=== PATIENT | male | born 1975 | race Hispanic/Latino ===

== ENCOUNTER 2019-05-18 05:12 | Emergency (ER) | payer OTHER ==
--- OUTSIDE RECORDS SUMMARY | 2019-05-18 05:14 | XMS REPORT | Summary of Care ---
:1975 Author Organization [facility] Address [address] [place] [id number] Care Team Providers Name Role Phone Pcp, Patient Does Not Have A Primary Care Provider Reason for Visit Reason Comments Intake Referral Liver Txpl Eval Encounter Details Date Type Department Care Team Description 11/21/[address] [facility] Transplant- Gladis Couch, Intake Referral Naman Rich MD (Liver Txpl Eval ) Multispec[place]ty [address] [id number] [phone] Allergies No Known Allergiesdocumented as of this encounter (statuses as of 11/21/2018) Medications No known medicationsdocumented as of this encounter (statuses as of 11/21/2018) Active Problems Problem Noted Date E44.0 Moderate protein calorie malnutrition 11/19/2018 Obesity (BMI 30-39.9) 11/16/2018 Jaundice 11/15/2018 documented as of this encounter (statuses as of 11/21/2018) Immunizations Name Administration Dates Next Due Influenza Virus Vaccine 01/22/2018 documented as of this encounter Social History Tobacco Use Types Packs/Day Years Used Date Never Smoker Smokeless Tobacco: Never Used Alcohol Use Drinks/Week oz/Week Comments Yes 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 Alcohol Habits Answer Date Recorded How often do you have a drink containing alcohol? Never 11/15/2018 How many drinks containing alcohol do you have on a typical 10 or more 2018 day when you are drinking? How often do you have six or more drinks on one occasion? Never 11/15/2018 Sex Assigned at Date Recorded Not on file Job Start Date Occupation Industry Not on file Not on file Not on file Travel History Travel Start Travel End No recent travel history available. documented as of this encounter Last Filed Vital Signs Not on filedocumented in this encounter Plan of Treatment Health Maintenance Due Date Last Done Comments PNEUMOCOCCAL 0-64 YEARS COMBINED SERIES (1 of - 1981 PPSV23) DTaP,Tdap,and Td Vaccines (1 - Tdap) 1994 INFLUENZA VACCINE 12/23/2018 01/22/2018 documented as of this encounter Results Not on filedocumented in this encounter Insurance Payer Benefit Plan / Subscriber ID Effective Dates Phone Address Type Group [facility] [id number] 2018-Present PPO documented as of this encounter
--- OUTSIDE RECORDS SUMMARY | 2019-05-18 05:14 | XMS REPORT | Summary of Care ---
:1975 Author Organization [facility] Address [address] [place] [id number] Care Team Providers Name Role Phone Pcp, Patient Does Not Have A Primary Care Provider Reason for Visit Reason Comments Intake Referral Liver Txpl Eval Encounter Details Date Type Department Care Team Description 11/21/2018 Telephone [facility] Transplant- Gladis Couch, Intake Referral Naman Rich MD (Liver Txpl Eval ) [place]is[place]ty [address] [phone] Allergies No Known Allergiesdocumented as of this [...] ID Effective Dates Phone Address Type Group [facility] [employer] [id number] 2018-Present PPO documented as of this encounter
--- OUTSIDE RECORDS SUMMARY | 2019-05-18 05:18 | XMS REPORT | Summary of Care ---
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 Glomerular Filtration Rate (GFR) and Staging [facility] of Kidney Disease* + + + + | GFR (mL/min/1.73 m2)| With Kidney Damage|Without Kidney Damage + + + + |>90|Stage one| Normal + + + + |60-89|Stage two| Decreased GFR + + + + |30-59|Stage three| Stage three + + + + |15-29|Stage four | Stage four + + + + |<15 (or dialysis)|Stage five | Stage five + + + + *Each stage assumes the associated GFR level has been in effect for at least three months.Stages 1 to 5, with or without kidney disease, indicate chronic kidney disease. Notes: Determination of stages one and two (with eGFR >59mL/min/1.73 m2) requires estimation of kidney damage for at least three months as defined by structural or functional abnormalities of the kidney, manifested by either: Pathological abnormalities or Markers of kidney damage (including abnormalities in the composition of the blood or urine or abnormalities in imaging tests). Performing Organization Address City/[facility]/Zipcode Phone Number [facility] CLIA: [id number], [address] [place] [address] [id number] [phone] [facility] HEPATIC FUNCTION PANEL ([id number]) (ALB,T.PRO,BILI T,BU/BC,ALT,AST,ALK PHOS) (2018 12:55 AM CDT) TOTAL BILI 6.3 (H) 0.1 - 1.1 mg/dL [facility] BILI UNCON 1.6 (H) 0.1 - 1.1 mg/dL [facility] BILI CONJ 0.9 (H) 0.0 - 0.3 mg/dL [facility] T PROTEIN 7.5 6.3 - 8.2 g/dL [facility] ALBUMIN 2.3 (L) 3.5 - 5.0 g/dL [facility] ALK PHOS 294 (H) 34 - 122 U/L [facility] ALT(SGPT) 27 9 - 51 U/L [facility] AST(SGOT) 66 (H) 13 - 40 U/L [facility] Specimen Blood - ARM, LEFT Performing Organization Address [facility] Phone Number [facility] CLIA: [id number], [address] [place] [address] [phone] [facility] PROTHROMBIN TIME / INR (11/21/2018 12:55 AM CDT) PROTIME PATIENT 29.4 (H) 10.1 - 12.6 [facility] Seconds SERVICES INR 2.6Comment: Normal [facility] INR <1.1; Warfarin SERVICES Therapeutic range 2.0 to 3.0 or 2.5 to 3.5, depending upon the indications. Specimen Blood - ARM, LEFT Performing Organization Address [facility] Phone Number [facility] CLIA: [id number], [address] [place] [address] [phone] [facility] NM BONE WHOLE BODY (11/20/2018 3:02 PM CDT) Specimen Impressions Performed At PACS/VR/DOSE No evidence of osteoblastic metastasis. Nikos Larose MD., have reviewed this study and agree with the above report. Narrative Performed At * * * * * * * * ORIGINAL REPORT * * * * * * * * PACS/VR/DOSE EXAM DESCRIPTION: Whole Body Bone Scan INDICATION: Suspect mets form HCC COMPARISON: None. Correlation with chest CT 11/19/2018, MR abdomen 11/17/2018, abdominal CT 11/15/2018 RADIOPHARMACEUTICAL: 25 mCi technetium 99m MDP administered intravenously in the left arm. TECHNIQUE: Anterior and posterior whole body images were acquired 3 hours after radiopharmaceutical administration. Spot images of the chest and pelvis were acquired in anterior and posterior projections. FINDINGS: No suspicious abnormal radiotracer uptake is identified.Scattered areas of uptake in the bilateral shoulder joints, thoracolumbar and sacroiliac spine likely represent degenerative changes. Focal areas of uptake in adjacent lower anterior ribs are likely related to prior trauma. Normal physiologic uptake is seen in the soft tissues, kidneys, and urinary bladder. Procedure Note [facility], Radiant Results Inft User - 11/20/2018 5:17 PM CDT * * * * * * * * ORIGINAL REPORT * * * * * * * * EXAM DESCRIPTION: Whole Body Bone Scan INDICATION: Suspect mets form HCC COMPARISON: None. Correlation with chest CT 11/19/2018, MR abdomen 11/17/2018, abdominal CT 11/15/2018 RADIOPHARMACEUTICAL: 25 mCi technetium 99m MDP administered intravenously in the left arm. TECHNIQUE: Anterior and posterior whole body images were acquired 3 hours after radiopharmaceutical administration. Spot images of the chest and pelvis were acquired in anterior and posterior projections. FINDINGS: No suspicious abnormal radiotracer uptake is identified. Scattered areas of uptake in the bilateral shoulder joints, thoracolumbar and sacroiliac spine likely represent degenerative changes. Focal areas of uptake in adjacent lower anterior ribs are likely related to prior trauma. Normal physiologic uptake is seen in the soft tissues, kidneys, and urinary bladder. IMPRESSION No evidence of osteoblastic metastasis. Frantz Larose MD., have reviewed this study and agree with the above report. Performing Organization Address City/State/Zipcode Phone Number [facility]/VR/DOSE MAGNESIUM (11/20/2018 12:17 AM CDT) MAGNESIUM 1.5 (L) 1.7 - 2.4 mg/dL [facility] Specimen Blood - ARM, LEFT Performing Organization Address City/[facility]/Zipcode Phone Number [facility] CLIA: [id number], [address] [place] [address] [phone] [facility] PHOSPHORUS (11/20/2018 12:17 AM CDT) PHOSPHORUS 3.7 2.5 - 5.0 mg/dL [facility] Specimen Blood - ARM, LEFT Performing Organization Address [facility] Phone Number [facility] CLIA: [id number], [address] [place] [phone] [facility] PROFILE / HEMOGRAM (11/20/2018 12:17 AM CDT) WBC 10.85 (H) 4.20 - 10.70 [facility] 10*3/L SERVICES RBC 2.01 (L) 4.26 - 5.52 [facility] 10*6/L SERVICES HGB 7.6 (L) 12.2 - 16.4 [facility] g/dL SERVICES HCT 22.7 (L) 38.4 - 49.3 % [facility] MCH 37.8 (H) 26.1 - 32.7 pg [facility] MCV 112.9 (H) 81.7 - 95.6 fL [facility] MCHC 33.5 31.2 - 35.0 [facility] g/dL SERVICES PLT 62 (L) 150 - 328 [facility] 10*3/L SERVICES MPV 11.8 9.8 - 13.0 fL [facility] RDW-CV 16.2 (H) 12.1 - 15.4 % [facility] RDW-SD 67.0 (H) 38.5 - 51.6 fL [facility] NRBC x10^3 <0.01 10*3/L [facility] NRBC/100 WBC 0.0 0.0 - 10.0 [facility] /100 WBCs SERVICES IPF % 5.7Comment: Platelet 1.2 - 10.7 % [facility] count measured by SERVICES fluorescence method. Specimen Blood - ARM, LEFT Performing Organization Address City/State/Zipcode Phone Number [facility] CLIA: [id number], [address] [place] [address] [phone] [facility] BASIC METABOLIC PANEL (NA, K, CL, CO2, GLUCOSE, BUN, CREATININE, CA) (2018 12:17 AM CDT) NA 137 135 - 145 [facility] mmol/L SERVICES K 4.0 3.5 - 5.0 [facility] mmol/L SERVICES CL 112 (H) 98 - 108 mmol/L [facility] CO2 TOTAL 21 (L) 23 - 31 mmol/L [facility] AGAP 4 2 - 16 [facility] BUN 10 7 - 23 mg/dL [facility] GLUCOSE 133 (H) 70 - 110 mg/dL [facility] CREATININE 0.74 0.60 - 1.25 [facility] mg/dL SERVICES CALCIUM 7.6 (L) 8.6 - 10.6 [facility] mg/dL SERVICES eGFR Calculation 115.4 mL/min/1.73m2 [facility] (Non- SERVICES [place]anese) eGFR Calculation 139.9 mL/min/1.73m2 [facility] () SERVICES Specimen Blood - ARM, LEFT Narrative Performed At Association of Glomerular Filtration Rate (GFR) and Staging [facility] of Kidney Disease* + + + + | GFR (mL/min/1.73 m2)| With Kidney Damage|Without Kidney Damage + + + + |>90|Stage one| Normal + + + + |60-89|Stage two| Decreased GFR + + + + |30-59|Stage three| Stage three + + + + |15-29|Stage four | Stage four + + + + |<15 (or dialysis)|Stage five | Stage five + + + + *Each stage assumes the associated GFR level has been in effect for at least three months.Stages 1 to 5, with or without kidney disease, indicate chronic kidney disease. Notes: Determination of stages one and two (with eGFR >59mL/min/1.73 m2) requires estimation of kidney damage for at least three months as defined by structural or functional abnormalities of the kidney, manifested by either: Pathological abnormalities or Markers of kidney damage (including abnormalities in the composition of the blood or urine or abnormalities in imaging tests). Performing Organization Address City/State/Zipcode Phone Number [facility] CLIA: [id number], [address] [place] [phone] [facility] HEPATIC FUNCTION PANEL ([id number]) (ALB,T.PRO,BILI T,BU/BC,ALT,AST,ALK PHOS) (2018 12:17 AM CDT) TOTAL BILI 6.5 (H) 0.1 - 1.1 mg/dL [facility] BILI UNCON 1.7 (H) 0.1 - 1.1 mg/dL [facility] BILI CONJ 0.9 (H) 0.0 - 0.3 mg/dL [facility] T PROTEIN 7.5 6.3 - 8.2 g/dL [facility] ALBUMIN 2.3 (L) 3.5 - 5.0 g/dL [facility] ALK PHOS 263 (H) 34 - 122 U/L [facility] ALT(SGPT) 29 9 - 51 U/L [facility] AST(SGOT) 64 (H) 13 - 40 U/L [facility] Specimen Blood - ARM, LEFT Performing Organization Address [facility]/Zipcode Phone Number [facility] CLIA: [id number], [address] [place] [phone] [facility] PROTHROMBIN TIME / INR (11/20/2018 12:17 AM CDT) Pathologist [facility] PROTIME PATIENT 29.8 (H) 10.1 - 12.6 [facility] Seconds SERVICES INR 2.7Comment: Normal [facility] INR <1.1; Warfarin SERVICES Therapeutic range 2.0 to 3.0 or 2.5 to 3.5, depending upon the indications. Specimen Blood - ARM, LEFT Performing Organization Address [facility] Phone Number [facility] CLIA: [id number], [address] [place] [phone] [facility] CT THORAX W CONTRAST (11/19/2018 2:22 PM CDT) Specimen Impressions Performed At PACS/VR/DOSE 1.No definite evidence of intrathoracic metastatic disease. 2.Small left pleural effusion with adjacent compressive atelectasis. 3.Mild left atrial dilation. 4.Right hepatic lobe hypodense lesion measuring 3.2 cm. This finding is better evaluated on the recent MRI abdomen from 11/17/2018. 5.Cirrhotic liver morphology with evidence of portal hypertension in the form of small volume ascites and splenomegaly. Narrative Performed At PROCEDURE: CT CHEST WITH CONTRAST - CHEST PROTOCOL PACS/VR/DOSE CLINICAL INDICATION: Suspect Mets COMPARISON: CT abdomen/pelvis 11/15/2018. TECHNIQUE:Helical CT was performed of the chest (lung apices to bases) using 100 mL Omnipaque nonionic intravenous contrast, without complication. Images were reconstructed at 1.25 mm slice thickness. MIP and coronal & sagittal MPR images were generated and reviewed. (DFOV=43 cm) FINDINGS: Lower neck/thyroid: Unremarkable. Lungs: Compressive atelectasis is seen in the left lower lobe adjacent to the effusion. Mild subsegmental atelectasis is also seen in the lingula. No suspicious pulmonary nodules are seen. Central airway: The central airways are patent. Pleura: A small left pleural effusion is seen. No pneumothorax is identified. Thoracic aorta and great vessels:Normal in diameter. Pulmonary arteries: Unremarkable. Heart and pericardium: No detectable coronary arterial calcification. Left atrial dilation is noted. No significant pericardial effusion is seen. Lymph nodes: No enlarged thoracic lymph nodes. Subcentimeter right hemidiaphragmatic lymph nodes measure up to 6 mm (301:158). Mediastinum: Unremarkable. Thoracic spine and chest wall: No aggressive osseous lesion is seen. Prominent anterior bridging osteophytes are seen along the thoracolumbar spine. Other Lines/Tubes/Devices/Hardware: None Visualized upper abdomen: Cirrhotic morphology of the liver is seen with a hypoattenuating lesion in the right hepatic lobe measuring up to 3.2 cm, better evaluated on the recent MRI abdomen from 11/17/2018. Small volume ascites is noted. Mild gallbladder wall thickening is seen. Mild splenomegaly measuring up to 13.3 cm. Prominent venancio hepatic and gastrohepatic lymph nodes are unchanged. Procedure Note [facility], Radiant Results Inft User - 11/19/2018 3:02 PM CDT PROCEDURE: CT CHEST WITH CONTRAST - CHEST PROTOCOL CLINICAL INDICATION: Suspect Mets COMPARISON: CT abdomen/pelvis 11/15/2018. TECHNIQUE: Helical CT was performed of the chest (lung apices to bases) using 100 mL Omnipaque nonionic intravenous contrast, without complication. Images were reconstructed at 1.25 mm slice thickness. MIP and coronal & sagittal MPR images were generated and reviewed. (DFOV=43 cm) FINDINGS: Lower neck/thyroid: Unremarkable. Lungs: Compressive atelectasis is seen in the left lower lobe adjacent to the effusion. Mild subsegmental atelectasis is also seen in the lingula. No suspicious pulmonary nodules are seen. Central airway: The central airways are patent. Pleura: A small left pleural effusion is seen. No pneumothorax is identified. Thoracic aorta and great vessels: Normal in diameter. Pulmonary arteries: Unremarkable. Heart and pericardium: No detectable coronary arterial calcification. Left atrial dilation is noted. No significant pericardial effusion is seen. Lymph nodes: No enlarged thoracic lymph nodes. Subcentimeter right hemidiaphragmatic lymph nodes measure up to 6 mm (301:158). Mediastinum: Unremarkable. Thoracic spine and chest wall: No aggressive osseous lesion is seen. Prominent anterior bridging osteophytes are seen along the thoracolumbar spine. Other Lines/Tubes/Devices/Hardware: None Visualized upper abdomen: Cirrhotic morphology of the liver is seen with a hypoattenuating lesion in the right hepatic lobe measuring up to 3.2 cm, better evaluated on the recent MRI abdomen from 11/17/2018. Small volume ascites is noted. Mild gallbladder wall thickening is seen. Mild splenomegaly measuring up to 13.3 cm. Prominent venancio hepatic and gastrohepatic lymph nodes are unchanged. IMPRESSION 1. No definite evidence of intrathoracic metastatic disease. 2. Small left pleural effusion with adjacent compressive atelectasis. 3. Mild left atrial dilation. 4. Right hepatic lobe hypodense lesion measuring 3.2 cm. This finding is better evaluated on the recent MRI abdomen from 11/17/2018. 5. Cirrhotic liver morphology with evidence of portal hypertension in the form of small volume ascites and splenomegaly. Performing Organization Address City/State/Zipcode Phone Number PACS/VR/DOSE MAGNESIUM (11/19/2018 5:31 AM CDT) MAGNESIUM 1.7 1.7 - 2.4 mg/dL [facility] Specimen Blood - ARM, LEFT Performing Organization Address [facility]/Zipcode Phone Number [facility] CLIA: [id number], [address] [place] [phone] [facility] PHOSPHORUS (11/19/2018 5:31 AM CDT) PHOSPHORUS 4.2 2.5 - 5.0 mg/dL [facility] Specimen Blood - ARM, LEFT Performing Organization Address [facility]/Zipcode Phone Number [facility] CLIA: [id number], [address] [place] [address] [phone] [facility] PROFILE / HEMOGRAM (11/19/2018 5:31 AM CDT) WBC 8.11 4.20 - 10.70 [facility] 10*3/L SERVICES RBC 1.98 (L) 4.26 - 5.52 [facility] 10*6/L SERVICES HGB 7.5 (L) 12.2 - 16.4 [facility] g/dL SERVICES HCT 22.6 (L) 38.4 - 49.3 % [facility] MCH 37.9 (H) 26.1 - 32.7 pg [facility] MCV 114.1 (H) 81.7 - 95.6 fL [facility] MCHC 33.2 31.2 - 35.0 [facility] g/dL SERVICES PLT 57 (L) 150 - 328 [facility] 10*3/L SERVICES MPV 12.0 9.8 - 13.0 fL [facility] RDW-CV 16.6 (H) 12.1 - 15.4 % [facility] RDW-SD 69.5 (H) 38.5 - 51.6 fL [facility] NRBC x10^3 0.02 10*3/L [facility] NRBC/100 WBC 0.2 0.0 - 10.0 [facility] /100 WBCs SERVICES IPF % 6.7Comment: Platelet 1.2 - 10.7 % [facility] count measured by SERVICES fluorescence method. Specimen Blood - ARM, LEFT Performing Organization Address City/State/Zipcode Phone Number [facility] CLIA: [id number], [address] [place] [address] [facility] BASIC METABOLIC PANEL (NA, K, CL, CO2, GLUCOSE, BUN, CREATININE, CA) (2018 5:31 AM CDT) NA 137 135 - 145 [facility] mmol/L SERVICES K 3.3 (L) 3.5 - 5.0 [facility] mmol/L SERVICES CL 111 (H) 98 - 108 mmol/L [facility] CO2 TOTAL 21 (L) 23 - 31 mmol/L [facility] AGAP 5 2 - 16 [facility] BUN 10 7 - 23 mg/dL [facility] GLUCOSE 143 (H) 70 - 110 mg/dL [facility] CREATININE 0.67 0.60 - 1.25 [facility] mg/dL SERVICES CALCIUM 7.6 (L) 8.6 - 10.6 [facility] mg/dL SERVICES eGFR Calculation 129.5 mL/min/1.73m2 [facility] (Non- SERVICES [place]anese) eGFR Calculation 156.9 mL/min/1.73m2 [facility] () SERVICES Specimen Blood - ARM, LEFT Narrative Performed At [facility] Glomerular Filtration Rate (GFR) and Staging [facility] of Kidney Disease* + + + + | GFR (mL/min/1.73 m2)| With Kidney Damage|Without Kidney Damage + + + + |>90|Stage one| Normal + + + + |60-89|Stage two| Decreased GFR + + + + |30-59|Stage three| Stage three + + + + |15-29|Stage four | Stage four + + + + |<15 (or dialysis)|Stage five | Stage five + + + + *Each stage assumes the associated GFR level has been in effect for at least three months.Stages 1 to 5, with or without kidney disease, indicate chronic kidney disease. Notes: Determination of stages one and two (with eGFR >59mL/min/1.73 m2) requires estimation of kidney damage for at least three months as defined by structural or functional abnormalities of the kidney, manifested by either: Pathological abnormalities or Markers of kidney damage (including abnormalities in the composition of the blood or urine or abnormalities in imaging tests). Performing Organization Address City/[facility] Phone Number [facility] CLIA: [id number], [address] [place] [address] [phone] [facility] HEPATIC FUNCTION PANEL ([id number]) (ALB,T.PRO,BILI T,BU/BC,ALT,AST,ALK PHOS) (2018 5:31 AM CDT) TOTAL BILI 5.7 (H) 0.1 - 1.1 mg/dL [facility] BILI UNCON 1.8 (H) 0.1 - 1.1 mg/dL [facility] BILI CONJ 0.6 (H) 0.0 - 0.3 mg/dL [facility] T PROTEIN 7.0 6.3 - 8.2 g/dL [facility] ALBUMIN 2.2 (L) 3.5 - 5.0 g/dL [facility] ALK PHOS 272 (H) 34 - 122 U/L [facility] ALT(SGPT) 27 9 - 51 U/L [facility] AST(SGOT) 65 (H) 13 - 40 U/L [facility] Specimen Blood - ARM, LEFT Performing Organization Address [facility] Phone Number [facility] CLIA: [id number], [address] [place] [phone] [facility] PROTHROMBIN TIME / INR (11/19/2018 5:31 AM CDT) PROTIME PATIENT 29.3 (H) 10.1 - 12.6 [facility] Seconds SERVICES INR 2.6Comment: Normal [facility] INR <1.1; Warfarin SERVICES Therapeutic range 2.0 to 3.0 or 2.5 to 3.5, depending upon the indications. Specimen Blood - ARM, LEFT Performing Organization Address [facility] Phone Number [facility] CLIA: [id number], [address] [place] [address] [phone] [facility] MAGNESIUM (11/18/2018 3:47 AM CDT) MAGNESIUM 1.3 (L) 1.7 - 2.4 mg/dL [facility] Specimen Blood - WRIST, LEFT Performing Organization Address [facility] Phone Number [facility] CLIA: [id number], [address] [place], [place] [phone] [facility] PHOSPHORUS (11/18/2018 3:47 AM CDT) PHOSPHORUS 3.7 2.5 - 5.0 mg/dL [facility] Specimen Blood - WRIST, LEFT Performing Organization Address [facility] [facility] Phone Number [facility] CLIA: [id number], [address] [place] [address] [phone] [facility] BASIC METABOLIC PANEL (NA, K, CL, CO2, GLUCOSE, BUN, CREATININE, CA) (2018 3:47 AM CDT) NA 138 135 - 145 [facility] mmol/L SERVICES K 3.7 3.5 - 5.0 [facility] mmol/L SERVICES CL 112 (H) 98 - 108 mmol/L [facility] CO2 TOTAL 20 (L) 23 - 31 mmol/L [facility] AGAP 6 2 - 16 [facility] BUN 9 7 - 23 mg/dL [facility] GLUCOSE 131 (H) 70 - 110 mg/dL [facility] CREATININE 0.73 0.60 - 1.25 [facility] mg/dL SERVICES CALCIUM 7.5 (L) 8.6 - 10.6 [facility] mg/dL SERVICES eGFR Calculation 117.3 mL/min/1.73m2 [facility] (Non- SERVICES Bhutanese) eGFR Calculation 142.1 mL/min/1.73m2 [facility] () SERVICES Specimen Blood - WRIST, LEFT Narrative Performed At Association of Glomerular Filtration Rate (GFR) and Staging [facility] of Kidney Disease* + + + + | GFR (mL/min/1.73 m2)| With Kidney Damage|Without Kidney Damage + + + + |>90|Stage one| Normal + + + + |60-89|Stage two| Decreased GFR + + + + |30-59|Stage three| Stage three + + + + |15-29|Stage four | Stage four + + + + |<15 (or dialysis)|Stage five | Stage five + + + + *Each stage assumes the associated GFR level has been in effect for at least three months.Stages 1 to 5, with or without kidney disease, indicate chronic kidney disease. Notes: Determination of stages one and two (with eGFR >59mL/min/1.73 m2) requires estimation of kidney damage for at least three months as defined by structural or functional abnormalities of the kidney, manifested by either: Pathological abnormalities or Markers of kidney damage (including abnormalities in the composition of the blood or urine or abnormalities in imaging tests). Performing Organization Address [facility] Phone Number [facility] CLIA: [id number], [address] [place], [place] [address] [facility] HEPATIC FUNCTION PANEL ([id number]) (ALB,T.PRO,BILI T,BU/BC,ALT,AST,ALK PHOS) (2018 3:47 AM CDT) TOTAL BILI 6.2 (H) 0.1 - 1.1 mg/dL [facility] BILI UNCON 1.8 (H) 0.1 - 1.1 mg/dL [facility] BILI CONJ 0.8 (H) 0.0 - 0.3 mg/dL [facility] T PROTEIN 7.4 6.3 - 8.2 g/dL [facility] ALBUMIN 2.3 (L) 3.5 - 5.0 g/dL [facility] ALK PHOS 260 (H) 34 - 122 U/L [facility] ALT(SGPT) 24 9 - 51 U/L [facility] AST(SGOT) 79 (H) 13 - 40 U/L [facility] Specimen Blood - WRIST, LEFT Performing Organization Address [facility] Phone Number [facility] CLIA: [id number], [address] [place], [place] [id number] [facility] PROTHROMBIN TIME / INR (11/18/2018 3:47 AM CDT) PROTIME PATIENT 30.3 (H) 10.1 - 12.6 [facility] Seconds SERVICES INR 2.7Comment: Normal [facility] INR <1.1; Warfarin SERVICES Therapeutic range 2.0 to 3.0 or 2.5 to 3.5, depending upon the indications. Specimen Blood - WRIST, LEFT Performing Organization Address [facility] Phone Number [facility] CLIA: [id number], [address] [place], [place] [id number] [phone] [facility] PROFILE / HEMOGRAM (11/18/2018 3:46 AM CDT) WBC 8.17 4.20 - 10.70 [facility] 10*3/L SERVICES RBC 1.94 (L) 4.26 - 5.52 [facility] 10*6/L SERVICES HGB 7.4 (L) 12.2 - 16.4 [facility] g/dL SERVICES HCT 22.0 (L) 38.4 - 49.3 % [facility] MCH 38.1 (H) 26.1 - 32.7 pg [facility] MCV 113.4 (H) 81.7 - 95.6 fL [facility] MCHC 33.6 31.2 - 35.0 [facility] g/dL SERVICES PLT 56 (L) 150 - 328 [facility] 10*3/L SERVICES MPV 12.4 9.8 - 13.0 fL [facility] RDW-CV 16.7 (H) 12.1 - 15.4 % [facility] RDW-SD 70.0 (H) 38.5 - 51.6 fL [facility] NRBC x10^3 <0.01 10*3/L [facility] NRBC/100 WBC 0.0 0.0 - 10.0 [facility] /100 WBCs SERVICES IPF % 6.1Comment: Platelet 1.2 - 10.7 % [facility] count measured by SERVICES fluorescence method. Specimen Blood - WRIST, LEFT Performing Organization Address City/State/Zipcode Phone Number [facility] CLIA: [id number], [address] [place] [address] [phone] [facility] MR ABDOMEN W WO CONTRAST (11/17/2018 12:04 PM CDT) Specimen Impressions Performed At PACS/VR/DOSE A 3.1 cm lesion in segment 8/4A contains microscopic fat but does not show arterial enhancement. This remains concerning for HCC, LI RADS 4. Biopsy could be considered for further evaluation. No biliary dilatation. Cirrhotic liver morphology with portal hypertension in the form of small volume ascites, splenomegaly, and small gastroesophageal varices. Bilateral small pleural effusions. IRandi MD., have reviewed this study and agree with the above report. Narrative Performed At EXAM: MRI ABDOMEN with and without CONTRAST PACS/VR/DOSE HISTORY: Liver lesion, <1cm, liver disease with risk of hcc Triple Phase MRI to assess LIVER MASS COMPARISON:CT dated 11/15/2018, ultrasound dated 11/16/2018 TECHNIQUE: Multiplanar, multisequence MR imaging of the abdomen was performed with and without 20 cc Dotarem. FINDINGS: LOWER THORAX: Small volume bilateral pleural effusions, more prominent on the left than right. No cardiomegaly. LIVER: Multiple mildly T1 hyperintense nodules scattered through the liver along with the nodular hepatic contour is consistent with cirrhosis with siderotic nodules. A mildly T2 hyperintense lesion measuring 3.2 cm in segment 4A/8 shows loss of signal on out of phase images suggestive of microscopic fat. No definite enhancement or restricted diffusion. No biliary ductal dilation. No arterially enhancing lesions. BILIARY TREE: Mild gallbladder wall thickening is appreciated, presumably sequelae of chronic liver disease in the absence of distention pericholecystic stranding or gallstones. No ductal dilation or filling defects. The common bile duct appears normal. SPLEEN: Mild splenomegaly measures 13.3 cm. PANCREAS: No ductal dilation or masses. ADRENAL GLANDS: No adrenal nodules. KIDNEYS: No hydronephrosis or masses. A subcentimeter nonenhancing T2 hyperintense right interpolar cyst is seen medially (series 16:70). PERITONEUM AND RETROPERITONEUM: Small volume ascites. LYMPH NODES: Mildly enlarged venancio hepatis and retroperitoneal lymph nodes are likely reactive. VESSELS: The portal and hepatic veins are patent. Small gastroesophageal varices. BONES AND SOFT TISSUES: Unremarkable. Procedure Note [facility], Radiant Results Inft User - 11/19/2018 12:59 PM CDT EXAM: MRI ABDOMEN with and without CONTRAST HISTORY: Liver lesion, <1cm, liver disease with risk of hcc Triple Phase MRI to assess LIVER MASS COMPARISON:CT dated 11/15/2018, ultrasound dated 11/16/2018 TECHNIQUE: Multiplanar, multisequence MR imaging of the abdomen was performed with and without 20 cc Dotarem. FINDINGS: LOWER THORAX: Small volume bilateral pleural effusions, more prominent on the left than right. No cardiomegaly. LIVER: Multiple mildly T1 hyperintense nodules scattered through the liver along with the nodular hepatic contour is consistent with cirrhosis with siderotic nodules. A mildly T2 hyperintense lesion measuring 3.2 cm in segment 4A/8 shows loss of signal on out of phase images suggestive of microscopic fat. No definite enhancement or restricted diffusion. No biliary ductal dilation. No arterially enhancing lesions. BILIARY TREE: Mild gallbladder wall thickening is appreciated, presumably sequelae of chronic liver disease in the absence of distention pericholecystic stranding or gallstones. No ductal dilation or filling defects. The common bile duct appears normal. SPLEEN: Mild splenomegaly measures 13.3 cm. PANCREAS: No ductal dilation or masses. ADRENAL GLANDS: No adrenal nodules. KIDNEYS: No hydronephrosis or masses. A subcentimeter nonenhancing T2 hyperintense right interpolar cyst is seen medially (series 16:70). PERITONEUM AND RETROPERITONEUM: Small volume ascites. LYMPH NODES: Mildly enlarged venancio hepatis and retroperitoneal lymph nodes are likely reactive. VESSELS: The portal and hepatic veins are patent. Small gastroesophageal varices. BONES AND SOFT TISSUES: Unremarkable. IMPRESSION A 3.1 cm lesion in segment 8/4A contains microscopic fat but does not show arterial enhancement. This remains concerning for HCC, LI RADS 4. Biopsy could be considered for further evaluation. No biliary dilatation. Cirrhotic liver morphology with portal hypertension in the form of small volume ascites, splenomegaly, and small gastroesophageal varices. Bilateral small pleural effusions. I, Randi Mcgraw MD., have reviewed this study and agree with the above report. Performing Organization Address City/State/Zipcode Phone Number PACS/VR/DOSE PROTHROMBIN TIME / INR (11/17/2018 10:03 AM CDT) PROTIME PATIENT 27.7 (H) 10.1 - 12.6 [facility] Seconds SERVICES INR 2.5Comment: Normal [facility] INR <1.1; Warfarin SERVICES Therapeutic range 2.0 to 3.0 or 2.5 to 3.5, depending upon the indications. Specimen Blood - ARM, LEFT Performing Organization Address City/State/Zipcode Phone Number [facility] CLIA: [id number], [address] [place] [address] [facility] BASIC METABOLIC PANEL (NA, K, CL, CO2, GLUCOSE, BUN, CREATININE, CA) (2018 10:02 AM CDT) NA 136 135 - 145 [facility] mmol/L SERVICES K 3.2 (L) 3.5 - 5.0 [facility] mmol/L SERVICES CL 110 (H) 98 - 108 mmol/L [facility] CO2 TOTAL 21 (L) 23 - 31 mmol/L [facility] AGAP 5 2 - 16 [facility] BUN 9 7 - 23 mg/dL [facility] GLUCOSE 159 (H) 70 - 110 mg/dL [facility] CREATININE 0.61 0.60 - 1.25 [facility] mg/dL SERVICES CALCIUM 7.8 (L) 8.6 - 10.6 [facility] mg/dL SERVICES eGFR Calculation 144.3 mL/min/1.73m2 [facility] (Non- SERVICES [place]utanese) eGFR Calculation 174.9 mL/min/1.73m2 [facility] () SERVICES Specimen Blood - ARM, LEFT Narrative Performed At Association of Glomerular Filtration Rate (GFR) and Staging [facility] of Kidney Disease* + + + + | GFR (mL/min/1.73 m2)| With Kidney Damage|Without Kidney Damage + + + + |>90|Stage one| Normal + + + + |60-89|Stage two| Decreased GFR + + + + |30-59|Stage three| Stage three + + + + |15-29|Stage four | Stage four + + + + |<15 (or dialysis)|Stage five | Stage five + + + + *Each stage assumes the associated GFR level has been in effect for at least three months.Stages 1 to 5, with or without kidney disease, indicate chronic kidney disease. Notes: Determination of stages one and two (with eGFR >59mL/min/1.73 m2) requires estimation of kidney damage for at least three months as defined by structural or functional abnormalities of the kidney, manifested by either: Pathological abnormalities or Markers of kidney damage (including abnormalities in the composition of the blood or urine or abnormalities in imaging tests). Performing Organization Address City/State/Zipcode Phone Number [facility] CLIA: [id number], [address] [place] [address] [phone] [facility] PROFILE / HEMOGRAM (11/17/2018 10:02 AM CDT) WBC 7.20 4.20 - 10.70 [facility] 10*3/L SERVICES RBC 2.16 (L) 4.26 - 5.52 [facility] 10*6/L SERVICES HGB 8.3 (L) 12.2 - 16.4 [facility] g/dL SERVICES HCT 24.4 (L) 38.4 - 49.3 % [facility] MCH 38.4 (H) 26.1 - 32.7 pg [facility] MCV 113.0 (H) 81.7 - 95.6 fL [facility] MCHC 34.0 31.2 - 35.0 [facility] g/dL SERVICES PLT 59 (L) 150 - 328 [facility] 10*3/L SERVICES MPV 12.2 9.8 - 13.0 fL [facility] RDW-CV 16.8 (H) 12.1 - 15.4 % [facility] RDW-SD 70.0 (H) 38.5 - 51.6 fL [facility] NRBC x10^3 <0.01 10*3/L [facility] NRBC/100 WBC 0.0 0.0 - 10.0 [facility] /100 WBCs SERVICES IPF % 7.2Comment: Platelet 1.2 - 10.7 % [facility] count measured by SERVICES fluorescence method. Specimen Blood - ARM, LEFT Performing Organization Address City/State/Zipcode Phone Number [facility] CLIA: [id number], [address] [place] [address] [facility] URINALYSIS (11/16/2018 4:48 PM CDT) APPEARANCE Clear Clear [facility] COLOR Odalys (A) Yellow [facility] PH 7.0 4.8 - 8.0 [facility] SP GRAVITY 1.009 1.003 - 1.030 [facility] GLU U QUAL Normal Normal [facility] BLOOD 1+ (A) Negative [facility] KETONES Negative Negative [facility] PROTEIN Negative Negative [facility] UROBILIN 2.0 mg/dL (A)Comment: Normal [facility] Erroneous false SERVICES urobilinogen has been indicated by the test quality control tech. Review all positive urobilinogen relative to serum bilirubin results. BILIRUBIN Negative Negative [facility] NITRITE Negative Negative [facility] [place] Negative Negative [facility] SERVICES RBC/HPF 1 0 - 3 HPF [facility] WBC/HPF <1 0 - 5 HPF [facility] BACTERIA Negative Negative [facility] Specimen Urine - URINE, CLEAN CATCH Performing Organization Address City/[facility] Phone Number [facility] CLIA: [id number], [address] [place] [address] [facility] URINE CULTURE (11/16/2018 4:47 PM CDT) URINE CULTURE No aerobic growth [facility] (< 1000 CFU/mL) SERVICES Specimen Urine - URINE, CLEAN CATCH Performing Organization Address [facility] Phone Number [facility] CLIA: [id number], [address] [place] [address] [facility] XR CHEST 1 VW (11/16/2018 4:07 PM CDT) Specimen Impressions Performed At Findings/IMPRESSION: PACS/VR/DOSE The lungs are underinflated. Left retrocardiac opacity on may represent a combination of a small effusion with atelectasis and/or consolidation. A follow-up chest radiograph can be obtained in 6-8 weeks after appropriate treatment to determine resolution. The heart is normal in size for technique. No acute osseous abnormality is detected. Steff Larose MD., have reviewed this study and agree with the above report. Narrative Performed At * * * * * * * * ORIGINAL REPORT * * * * * * * * PACS/VR/DOSE XR CHEST 1 VW Comparison: None available History: suspected infection Procedure Note [facility], Radiant Results Inft User - 11/16/2018 4:46 PM CDT * * * * * * * * ORIGINAL REPORT * * * * * * * * XR CHEST 1 VW Comparison: None available History: suspected infection IMPRESSION Findings/IMPRESSION: The lungs are underinflated. Left retrocardiac opacity on may represent a combination of a small effusion with atelectasis and/or consolidation. A follow-up chest radiograph can be obtained in 6-8 weeks after appropriate treatment to determine resolution. The heart is normal in size for technique. No acute osseous abnormality is detected. Sung Larose MD., have reviewed this study and agree with the above report. Performing Organization Address [facility] Phone Number PACS/VR/DOSE CYTO ABDOMINAL FLUID (11/16/2018 2:36 PM CDT) Case Report Non-Gynecologic Cytology Case: [id number] [facility] Authorizing Provider:Shankar Marc GALINA Morrowollected: 11/16/2018 1436 SERVICES Ordering Location: [facility] ([address]) Received: 11/16/2018 1504 Pathologist: Misty Michel MD Specimen:ASCITES Final Diagnosis A. ABDOMEN; PARACENTESIS FLUID: [facility] Electronically signed - NO MALIGNANT CELLS IDENTIFIED (SEE COMMENT) SERVICES by Misty Michel MD on I have personally reviewed all specimens/slides and agree with all statements made by residents, fellows or pathologist assistants whose name(s) may appear on this report. 11/20/2018 at 10:36 AM Final Diagnosis Reactive mesothelial cells, macrophages and lymphocytes are seen. No malignant cells identified. [facility] Comment SERVICES Clinical Ascites [facility] Information SERVICES Gross Description A1. ABDOMEN; PARACENTESIS FLUID [facility] Received fresh is 120 cc's of odalys fluid SERVICES Prepared 3 slides (1 Papanicolaou cytospin, 1 Romanowsky cytospin and 1 Thinprep preparation) Embedded Images [facility] Specimen Fluid - ASCITES Performing Organization Address City/State/Zipcode Phone Number [facility] CLIA: [id number], [address] [place] [phone] [facility] IR PARACENTESIS/PERITONECENTESIS WITH IMAGING (11/16/2018 2:02 PM CDT) Specimen Impressions Performed At Successful image guided paracentesis. PACS/VR/DOSE I, Radha Ruiz MD., have reviewed this study and agree with the above report. Narrative Performed At EXAMINATION: IMAGE GUIDED PARACENTESIS. PACS/VR/DOSE HISTORY/INDICATION: Diagnostic Para COMPARISON: CT abdomen/pelvis dated 11/15/2018, ultrasound abdomen dated 11/16/2018. ATTENDING PRESENCE:As the attending radiologist, I was immediately available during the entire procedure.VIR fellow: Dr. Shankar Marc. SEDATION: The patient did not require conscious sedation for the procedure. TECHNIQUE: The risks, benefits and alternatives were discussed and informed consent was obtained. Prior to beginning the procedure, [place] Protocol was performed to confirm the identity and the planned procedure.Maximum sterile barriers including cap, mask, hand hygiene, sterile gloves, sterile gown, large sterile drape and cutaneous antisepsis were used. The patient's abdomen was examined with ultrasound and a suitable pocket of ascitic fluid in the RLQ was identified. The skin overlying this area was anesthetized with 1 percent lidocaine. Using real-time ultrasound guidance, a 21-gauge needle was advanced into the ascitic fluid. A microwire was advanced into the fluid pocket and the needle was removed. A micro-sheath was advanced over the wire. Approximately 900 mL of serous yellow fluid was drained. Samples were sent for culture and laboratory analysis. At the conclusion of the procedure the catheter was removed and a sterile dressing applied to the site. ESTIMATED BLOOD LOSS: Minimal. CONDITION: Stable. DISCHARGED TO: Recovery and then returned to inpatient unit. FINDINGS: Ultrasound demonstrated a small amount of ascitic fluid. Procedure Note [facility], Radiant Results Inft User - 11/19/2018 4:43 PM CDT EXAMINATION: IMAGE GUIDED PARACENTESIS. HISTORY/INDICATION: Diagnostic Para COMPARISON: CT abdomen/pelvis dated 11/15/2018, ultrasound abdomen dated 11/16/2018. ATTENDING PRESENCE: As the attending radiologist, I was immediately available during the entire procedure. VIR fellow: Dr. Shankar Marc. SEDATION: The patient did not require conscious sedation for the procedure. TECHNIQUE: The risks, benefits and alternatives were discussed and informed consent was obtained. Prior to beginning the procedure, [place] Protocol was performed to confirm the identity and the planned procedure. Maximum sterile barriers including cap, mask, hand hygiene, sterile gloves, sterile gown, large sterile drape and cutaneous antisepsis were used. The patient's abdomen was examined with ultrasound and a suitable pocket of ascitic fluid in the RLQ was identified. The skin overlying this area was anesthetized with 1 percent lidocaine. Using real-time ultrasound guidance, a 21-gauge needle was advanced into the ascitic fluid. A microwire was advanced into the fluid pocket and the needle was removed. A micro-sheath was advanced over the wire. Approximately 900 mL of serous yellow fluid was drained. Samples were sent for culture and laboratory analysis. At the conclusion of the procedure the catheter was removed and a sterile dressing applied to the site. ESTIMATED BLOOD LOSS: Minimal. CONDITION: Stable. DISCHARGED TO: Recovery and then returned to inpatient unit. FINDINGS: Ultrasound demonstrated a small amount of ascitic fluid. IMPRESSION Successful image guided paracentesis. IRadha MD., have reviewed this study and agree with the above report. Performing Organization Address City/State/Zipcode Phone Number PACS/VR/DOSE ALBUMIN BODY FLUID (11/16/2018 1:24 PM CDT) ALBUMIN BF 272.0 mg/dL [facility] Specimen Fluid - ASCITES Narrative Performed At Result interpreted relative to the serum concentration. [facility] Performing Organization Address City/State/Zipcode Phone Number [facility] CLIA: [id number], [address] [place] [address] [phone] [facility] BODY FLUID MANUAL DIFF (11/16/2018 1:24 PM CDT) BF SEGS 14 % [facility] BF LYMPHS 22 % [facility] MACROPHAGE 57 % [facility] MESOS 7 % [facility] #CELS CNTD 100 [facility] Specimen Fluid - ASCITES Performing Organization Address City/[facility]/Zipcode Phone Number [facility] CLIA: [id number], [address] [place] [address] [facility] BODY FLUID DIRECT COUNT (11/16/2018 1:24 PM CDT) BF COLOR Yellow [facility] BF WBC Count 92 /L [facility] BF RBC Count <3000 /L [facility] [facility] Specimen Fluid - ASCITES Narrative Performed At The reference range and other method performance [facility] specifications have not been established for this body fluid.The test results must be integrated into the clinical context for interpretation. Performing Organization Address City/[facility]/Zipcode Phone Number [facility] CLIA: [id number], [address] [place] [phone] [facility] LDH TOTAL BODY FLUID (11/16/2018 1:24 PM CDT) LDH BF 188 U/L [facility] UNSPUN BODY FLUID Yellow [facility] COLOR SERVICES UNSPUN BODY FLUID Clear [facility] SPUN BODY FLUID Yellow [facility] COLOR SERVICES SPUN BODY FLUID Clear [facility] CLARITY SERVICES Sediment The sediment [facility] volume is <0.1 SERVICES mLs of the total fluid volume of 4mL and its color is red. Specimen Fluid - ASCITES Narrative Performed At Test developed and characteristics determined by [facility] Laboratory Services. Performing Organization Address City/[facility]/Zipcode Phone Number [facility] CLIA: [id number], [address] [place] [phone] [facility] ASPIRATE OR ABSCESS CULTURE(AEROBIC/ANAEROBIC) (11/16/2018 1:24 PM CDT) Aspirate or No aerobic/anaerobic [facility] Abscess Culture organisms isolated SERVICES Gram stain No Organisms seen [facility] Gram stain Occasional (Rare) [facility] Polymorphonuclear SERVICES leukocytes Specimen Wound - ASCITES Performing Organization Address City/[facility] Phone Number [facility] CLIA: [id number], [address] [place] [address] [phone] [facility] T.PROTEIN BODY FLUID (11/16/2018 1:24 PM CDT) T.PROT BF 1,410.0 mg/dL [facility] UNSPUN BODY FLUID Yellow [facility] COLOR SERVICES UNSPUN BODY FLUID Clear [facility] CLARITY SERVICES SPUN BODY FLUID Yellow [facility] COLOR SERVICES SPUN BODY FLUID Clear [facility] CLARITY SERVICES Sediment The sediment [facility] volume is <0.1 SERVICES mLs of the total fluid volume of 4mL and its color is red. Specimen Fluid - ASCITES Narrative Performed At Test developed and characteristics determined by [facility] Laboratory Services. Performing Organization Address [facility] Phone Number [facility] CLIA: [id number], [address] [place] [address] [phone] [facility] GLUCOSE BODY FLUID (11/16/2018 1:24 PM CDT) GLUCOSE BF 139 mg/dL [facility] UNSPUN BODY FLUID Yellow [facility] COLOR SERVICES UNSPUN BODY FLUID Clear [facility] CLARITY SERVICES SPUN BODY FLUID Yellow [facility] COLOR SERVICES SPUN BODY FLUID Clear [facility] CLARITY SERVICES Sediment The sediment [facility] volume is <0.1 SERVICES mLs of the total fluid volume of 4mL and its color is red. Specimen Fluid - ASCITES Narrative Performed At Test developed and characteristics determined by [facility] Laboratory Services. Performing Organization Address City/[facility]/Zipcode Phone Number [facility] CLIA: [id number], [facility] [place] [address] [facility] US ABDOMEN LIMITED WITH DOPPLER (11/16/2018 8:16 AM CDT) Specimen Impressions Performed At [facility] liver morphology with an indeterminate 3.8 cm right hepatic PACS/VR/ DOSE lobe hyperechoic lesion, which could be further evaluated with a triple phase CT abdomen pelvis and/or MRI abdomen/liver protocol. No sonographic evidence of portal vein thrombosis. Hydropic gallbladder without sonographic evidence of cholelithiasis or acute cholecystitis. The common bile duct is dilated, measuring up to 0.8 cm, unchanged when compared to prior imaging. Consider further evaluation with MRI abdomen/MRCP as clinically indicated. Small volume ascites. Destinee Larose MD., have reviewed this study and agree with the above report. Narrative Performed At * * * * * * * * ORIGINAL REPORT * * * * * * * * PACS/VR/DOSE HISTORY: Portal Venin Thrombosis . ABDOMINAL ULTRASOUND, LIMITED. COMPARISON: CT abdomen pelvis dated 11/15/2018. FINDINGS: LIVER: The liver is slightly enlarged, measures 17.2 cm and demonstrates a diffuse coarse echotexture, as well as, nodular contour. A 3.1 x 3.9 x 3.8 cm round slightly hyperechoic lesion is seen in the right liver lobe without flow on color Doppler. No other focal hepatic lesions are identified the main portal vein demonstrates pulsatile hepatopedal flow, measures 1.2 cm and demonstrates PSV of 34.8 cm/s. GALLBLADDER: The gallbladder is distended, measures 12.4 cm in maximal length. No cholelithiasis or pericholecystic fluid. The gallbladder wall measures 0.6 cm. No sonographic Craft's sign. The common bile duct is slightly elevated, measures 0.8 cm. PANCREAS: Incompletely visualized due to overlying bowel gas. SPLEEN: The spleen is enlarged, measuring 13.8 cm. KIDNEYS: The visualized portion of the kidneys are unremarkable. Small volume of perihepatic and perisplenic free fluid is present. Procedure Note [facility], Radiant Results Inft User - 11/16/2018 9:26 AM CDT * * * * * * * * ORIGINAL REPORT * * * * * * * * HISTORY: Portal Venin Thrombosis . ABDOMINAL ULTRASOUND, LIMITED. COMPARISON: CT abdomen pelvis dated 11/15/2018. FINDINGS: LIVER: The liver is slightly enlarged, measures 17.2 cm and demonstrates a diffuse coarse echotexture, as well as, nodular contour. A 3.1 x 3.9 x 3.8 cm round slightly hyperechoic lesion is seen in the right liver lobe without flow on color Doppler. No other focal hepatic lesions are identified the main portal vein demonstrates pulsatile hepatopedal flow, measures 1.2 cm and demonstrates PSV of 34.8 cm/s. GALLBLADDER: The gallbladder is distended, measures 12.4 cm in maximal length. No cholelithiasis or pericholecystic fluid. The gallbladder wall measures 0.6 cm. No sonographic Craft's sign. The common bile duct is slightly elevated, measures 0.8 cm. PANCREAS: Incompletely visualized due to overlying bowel gas. SPLEEN: The spleen is enlarged, measuring 13.8 cm. KIDNEYS: The visualized portion of the kidneys are unremarkable. Small volume of perihepatic and perisplenic free fluid is present. IMPRESSION Cirrhotic liver morphology with an indeterminate 3.8 cm right hepatic lobe hyperechoic lesion, which could be further evaluated with a triple phase CT abdomen pelvis and/or MRI abdomen/liver protocol. No sonographic evidence of portal vein thrombosis. Hydropic gallbladder without sonographic evidence of cholelithiasis or acute cholecystitis. The common bile duct is dilated, measuring up to 0.8 cm, unchanged when compared to prior imaging. Consider further evaluation with MRI abdomen/MRCP as clinically indicated. Small volume ascites. Jose Larose MD., have reviewed this study and agree with the above report. Performing Organization Address City/State/Zipcode Phone Number PACS/VR/DOSE ETHANOL (11/16/2018 3:27 AM CDT) ALCOHOL 78 mg/dL [facility] Specimen Blood - ARM, RIGHT Narrative Performed At Toxic Greater than or equal to 80 mg/dL. [facility] NOTE: Whole blood values are approximately 10% to 15% lower than serum and plasma. Performing Organization Address City/State/Zipcode Phone Number [facility] CLIA: [id number], [address] [place] [address] [facility] ALPHA FETOPROTEIN (11/16/2018 3:27 AM CDT) AFP 7.4 <=7.5 ng/mL [facility] Specimen Blood - ARM, RIGHT Narrative Performed At Biotin has been reported to cause a negative bias, interpret [facility] results relative to patient's use of biotin. Performing Organization Address City/State/[facility] Phone Number [facility] CLIA: [id number], [address] [place] [address] [phone] [facility] HEPATITIS B SURFACE ANTIBODY (11/16/2018 3:27 AM CDT) HBsAB Negative [facility] HBsAb 0.70 mIU/mL [facility] Semi-Quantitative SERVICES Specimen Blood - ARM, RIGHT Narrative Performed At Interpretation:Hepatitis B Surface Antibody [facility] Negative - Patient is considered to be not immune to infection with HBV. Positive - Anti-HBs detected at greater than or equal to 12 mIU/mL.Patient is considered to be immune to infection with HBV. Performing Organization Address City/[facility] Phone Number [facility] CLIA: [id number], [address] [place] [address] [facility] HAV ANTIBODY (IGG AND IGM) (11/16/2018 3:27 AM CDT) Pathologist [facility] HAV Total Negative [facility] HAVT Semi-Quantitative 2.44 [facility] Specimen Blood - ARM, RIGHT Performing Organization Address City/[facility] Phone Number [facility] CLIA: [id number], [address] [place] [address] [facility] FIBRINOGEN (11/16/2018 3:27 AM CDT) Pathologist [facility] Fibrinogen 118 (L) 167 - 453 mg/dL [facility] Specimen Blood - ARM, RIGHT Performing Organization Address City/[facility] Phone Number [facility] CLIA: [id number], [address] [place] [address] [phone] [facility] PROTHROMBIN TIME / INR (11/16/2018 3:27 AM CDT) Pathologist [facility] PROTIME PATIENT 31.1 (H) 10.1 - 12.6 [facility] Seconds SERVICES INR 2.8Comment: Normal [facility] INR <1.1; Warfarin SERVICES Therapeutic range 2.0 to 3.0 or 2.5 to 3.5, depending upon the indications. Specimen Blood - ARM, RIGHT Performing Organization Address [facility]/Zipcode Phone Number [facility] CLIA: [id number], [address] [place] [phone] [facility] HEPATIC FUNCTION PANEL ([id number]) (ALB,T.PRO,BILI T,BU/BC,ALT,AST,ALK PHOS) (2018 12:07 AM CDT) TOTAL BILI 5.5 (H) 0.1 - 1.1 mg/dL [facility] BILI UNCON 1.3 (H) 0.1 - 1.1 mg/dL [facility] BILI CONJ 0.3 0.0 - 0.3 mg/dL [facility] T PROTEIN 7.5 6.3 - 8.2 g/dL [facility] ALBUMIN 2.4 (L) 3.5 - 5.0 g/dL [facility] ALK PHOS 368 (H) 34 - 122 U/L [facility] ALT(SGPT) 28 9 - 51 U/L [facility] AST(SGOT) 95 (H) 13 - 40 U/L [facility] Specimen Blood - ARM, RIGHT Performing Organization Address [facility] Phone Number [facility] CLIA: [id number], [address] [place] [address] [phone] [facility] CT ABDOMEN PELVIS W CONTRAST (11/15/2018 5:30 PM CDT) Specimen Impressions Performed At PACS/VR/DOSE 1.Nodular contours of the liver are consistent with cirrhosis. A 2.7 cm hypodensity in liver segment VIII expands liver capsule and has attenuation higher than expected for a simple cyst. These findings are concerning for hepatocellular carcinoma in the setting of cirrhosis. A CT or MRI triple phase can be obtained for further evaluation. 2.The gallbladder is hydropic, measuring up to 6.7 cm in greatest diameter. The common bile duct is dilated, measuring up to 0.9 cm. No hyperdense gallstones are noted within the lumen of gallbladder or the common bile duct. 3.Sequela of portal hypertension including moderate volume simple appearing ascites and recanalization of the umbilical vein. 4.Small left-sided pleural effusion with attenuation most consistent with simple fluid. ILeticia MD., have reviewed this study and agree with the above report. Narrative Performed At EXAM: CT ABDOMEN AND PELVIS WITH CONTRAST PACS/VR/DOSE HISTORY: 42-year-old male with concern for neoplasm. Per chart review, the patient presents with painless jaundice. COMPARISON: None. DOSE: 517 mGycm TECHNIQUE AND FINDINGS: Contiguous axial imaging from the level of the lung bases through the pubic symphysis was performed after the uncomplicated administration of intravenous Omnipaque contrast. Coronal and sagittal reconstructions were obtained.Auto mA and/or iterative reconstruction were used to reduce radiation dose. FINDINGS: LOWER THORAX: The heart appears large with mild atrial enlargement. A small left-sided pleural effusion is present with attenuation most consistent with simple fluid. There is a small amount of adjacent compressive atelectasis. LIVER: The liver is nodular with heterogenous enhancement, consistent with cirrhosis. A 2.8 cm hypodense lesion which expands liver capsule and has attenuation higher than expected for simple cyst is present in liver segment VIII (2:29). This is concerning for focus of hepatocellular carcinoma in the setting of cirrhosis. GALLBLADDER AND BILIARY TREE: The gallbladder is hydropic, measuring up to 6.7 cm in greatest diameter (4:31). The common bile duct measures up to 1.0 cm. No hyperdense stones are noted within the gallbladder or the common bile duct SPLEEN: No splenomegaly. PANCREAS: No ductal dilation or masses. ADRENAL GLANDS: No adrenal nodules. KIDNEYS: No hydronephrosis, stones, or masses. The ureters are unremarkable. PERITONEUM AND RETROPERITONEUM: Moderate volume ascites with attenuation most consistent with simple fluid. No free air. LYMPH NODES: A pericaval lymph node measures up to 1.1 cm (2:63). Prominent para-aortic lymph nodes measure up to 0.8 cm (2:79) GI TRACT: Thickening of the colon, most pronounced in the descending colon is likely reactive. Diverticulosis affects the sigmoid colon without evidence of diverticulitis. The small bowel is mildly dilated with fluid. The appendix is normal. PELVIS/BLADDER: The urinary bladder is decompressed. VESSELS: Classic hepatic arterial anatomy. The portal vein is normal in caliber. There is recanalization of the umbilical vein. BONES AND SOFT TISSUES: Mild degenerative changes of the visualized thoracic and lumbar spine. Bulky anterior marginal osteophytes are noted predominantly in the lower thoracic spine No suspicious lytic or blastic skeletal lesions. Procedure Note [facility], Radiant Results Inft User - 11/15/2018 7:01 PM CDT EXAM: CT ABDOMEN AND PELVIS WITH CONTRAST HISTORY: 42-year-old male with concern for neoplasm. Per chart review, the patient presents with painless jaundice. COMPARISON: None. DOSE: 517 mGycm TECHNIQUE AND FINDINGS: Contiguous axial imaging from the level of the lung bases through the pubic symphysis was performed after the uncomplicated administration of intravenous Omnipaque contrast. Coronal and sagittal reconstructions were obtained. Auto mA and/or iterative reconstruction were used to reduce radiation dose. FINDINGS: LOWER THORAX: The heart appears large with mild atrial enlargement. A small left-sided pleural effusion is present with attenuation most consistent with simple fluid. There is a small amount of adjacent compressive atelectasis. LIVER: The liver is nodular with heterogenous enhancement, consistent with cirrhosis. A 2.8 cm hypodense lesion which expands liver capsule and has attenuation higher than expected for simple cyst is present in liver segment VIII (2:29). This is concerning for focus of hepatocellular carcinoma in the setting of cirrhosis. GALLBLADDER AND BILIARY TREE: The gallbladder is hydropic, measuring up to 6.7 cm in greatest diameter (4:31). The common bile duct measures up to 1.0 cm. No hyperdense stones are noted within the gallbladder or the common bile duct SPLEEN: No splenomegaly. PANCREAS: No ductal dilation or masses. ADRENAL GLANDS: No adrenal nodules. KIDNEYS: No hydronephrosis, stones, or masses. The ureters are unremarkable. PERITONEUM AND RETROPERITONEUM: Moderate volume ascites with attenuation most consistent with simple fluid. No free air. LYMPH NODES: A pericaval lymph node measures up to 1.1 cm (2:63). Prominent para-aortic lymph nodes measure up to 0.8 cm (2:79) GI TRACT: Thickening of the colon, most pronounced in the descending colon is likely reactive. Diverticulosis affects the sigmoid colon without evidence of diverticulitis. The small bowel is mildly dilated with fluid. The appendix is normal. PELVIS/BLADDER: The urinary bladder is decompressed. VESSELS: Classic hepatic arterial anatomy. The portal vein is normal in caliber. There is recanalization of the umbilical vein. BONES AND SOFT TISSUES: Mild degenerative changes of the visualized thoracic and lumbar spine. Bulky anterior marginal osteophytes are noted predominantly in the lower thoracic spine No suspicious lytic or blastic skeletal lesions. IMPRESSION 1. Nodular contours of the liver are consistent with cirrhosis. A 2.7 cm hypodensity in liver segment VIII expands liver capsule and has attenuation higher than expected for a simple cyst. These findings are concerning for hepatocellular carcinoma in the setting of cirrhosis. A CT or MRI triple phase can be obtained for further evaluation. 2. The gallbladder is hydropic, measuring up to 6.7 cm in greatest diameter. The common bile duct is dilated, measuring up to 0.9 cm. No hyperdense gallstones are noted within the lumen of gallbladder or the common bile duct. 3. Sequela of portal hypertension including moderate volume simple appearing ascites and recanalization of the umbilical vein. 4. Small left-sided pleural effusion with attenuation most consistent with simple fluid. I, Tab Jones MD., have reviewed this study and agree with the above report. Performing Organization Address City/State/Zipcode Phone Number PACS/VR/DOSE CBC WITH DIFFERENTIAL (11/15/2018 3:44 PM CDT) WBC 11.18 (H) 4.20 - 10.70 [facility] 10*3/L [facility] RBC 2.16 (L) 4.26 - 5.52 [facility] 10*6/L [facility]ITAL LABORATORY HGB 8.4 (L) 12.2 - 16.4 [facility] g/dL [facility]ITAL [facility]ORY HCT 23.5 (L) 38.4 - 49.3 % [facility] MCV 108.8 (H) 81.7 - 95.6 [facility] HOSPITAL LABORATORY MCH 38.9 (H) 26.1 - 32.7 [facility] LABORATORY MCHC 35.7 (H) 31.2 - 35.0 [facility] g/dL HOSPITAL LABORATORY RDW-SD 65.1 (H) 38.5 - 51.6 [facility] LABORATORY RDW-CV 16.6 (H) 12.1 - 15.4 % [facility] PLT 77 (L) 150 - 328 [facility] 10*3/L [facility]PITAL LABORATORY MPV 12.0 9.8 - 13.0 fL [facility] IPF % 7.0Comment: Platelet 1.2 - 10.7 % [facility] count measured by HOSPITAL fluorescence method. LABORATORY NRBC/100 WBC 0.0 0.0 - 10.0 [facility] /100 WBCs [facility] NRBC x10^3 <0.01 10*3/L [facility] GRAN MAT (NEUT) % 61.6 % [facility] IMM GRAN % 0.50 % [facility] LYMPH % 23.5 % [facility] MONO % 12.4 % [facility] EOS % 1.6 % [facility] BASO % 0.4 % [facility] GRAN MAT 6.87 1.99 - 6.95 [facility] x10^3(ANC) 10*3/uL [facility] IMM GRAN x10^3 0.06 0.00 - 0.06 [facility] 10*3/uL [facility] LYMPH x10^3 2.63 1.09 - 3.23 [facility] 10*3/uL [facility] MONO x10^3 1.39 (H) 0.36 - 1.02 [facility] 10*3/uL [facility] EOS x10^3 0.18 0.06 - 0.53 [facility] 10*3/uL [facility] BASO x10^3 0.05 0.01 - 0.09 [facility] 10*3/uL [facility] Specimen Blood Performing Organization Address City/State/Zipcode Phone Number [facility] CLIA: [id number], [address] [place] [address] CREATININE (11/15/2018 3:44 PM CDT) CREATININE 0.63 0.60 - 1.25 [facility] mg/dL [facility] eGFR Calculation 139.0 mL/min/1.73m2 [facility] (Non-) [facility] eGFR Calculation 168.5 mL/min/1.73m2 [facility] () [facility] Specimen Blood Narrative Performed At Association of Glomerular Filtration Rate (GFR) [facility] and Staging of Kidney Disease* + + +- + | GFR (mL/min/1.73 m2)| With Kidney Damage|Without Kidney Damage + + +- + |>90| Stage one| Normal + + +- + |60-89|S tage two| Decreased GFR + + +- + |30-59|S tage three| Stage three + + +- + |15-29|S tage four | Stage four + + +- + |<15 (or dialysis)|Stage five | Stage five + + +- + *Each stage assumes the associated GFR level has been in effect for at least three months.Stages 1 to 5, with or without kidney disease, indicate chronic kidney disease. Notes: Determination of stages one and two (with eGFR >59mL/min/1.73 m2) requires estimation of kidney damage for at least three months as defined by structural or functional abnormalities of the kidney, manifested by either: Pathological abnormalities or Markers of kidney damage (including abnormalities in the composition of the blood or urine or abnormalities in imaging tests). Performing Organization Address [facility] Phone Number [facility] CLIA: [id number], [address] [place] [address] GAMMA GLUTAMYLTRANSFERASE (11/15/2018 3:44 PM CDT) GGT 158 (H) 13 - 58 U/L [facility] Specimen Blood Performing Organization Address [facility] Phone Number [facility] CLIA: [id number], [address] [place] [address] LIPASE (11/15/2018 3:44 PM CDT) LIPASE 600 (H) 0 - 220 U/L [facility] Specimen Blood Performing Organization Address [facility] [place] Phone Number [facility] CLIA: [id number], [address] [place] [address] LIPID PANEL ([id number])(TOTAL CHOLESTEROL, TRIGLYCERIDES, HDL) (11/15/2018 3:44 PM CDT) CHOL 112 (L) 120 - 200 mg/dL [facility] HDL 16 (L) >40 mg/dL [facility] HDLC RATIO 7.0 (H) <=5.0 [facility] TRIG 169 30 - 170 mg/dL [facility] LDL CHOL 62 <=160 mg/dL [facility] VLDL 34 5 - 60 mg/dL [facility] Specimen Blood Performing Organization Address City/State/Zipcode Phone Number [facility] CLIA: [id number], [address] [place] [address] HEPATITIS B CORE ANTIBODY IGM (11/15/2018 3:44 PM CDT) HBCM NEGATIVE [facility] HBCM Semi-Quantitative 0.08 [facility] Specimen Blood Narrative Performed At Biotin has been reported to cause a negative bias, interpret [facility] results relative to patient's use of biotin. Performing Organization Address City/State/Zipcode Phone Number [facility] CLIA: [id number], [address] [place] [address] [facility] HCV ANTIBODY (11/15/2018 3:44 PM CDT) Pathologist [facility] HCV Ab NEGATIVE [facility] HCV Semi-Quantitative 0.07 [facility] Specimen Blood Performing Organization Address City/[facility] Phone Number [facility] CLIA: [id number], [address] [place] [address] [facility] COMP. METABOLIC PANEL ([id number]) (11/15/2018 3:44 PM CDT) Pathologist [facility] NA [phone] [facility] mmol/L [facility] K 3.4 (L) 3.5 - 5.0 [facility] mmol/L [facility] CL 109 (H) 98 - 108 mmol/L [facility] CO2 TOTAL 18 (L) 23 - 31 mmol/L [facility] AGAP 11 2 - 16 [facility] BUN 8 7 - 23 mg/dL [facility] GLUCOSE 197 (H) 70 - 110 mg/dL [facility] CREATININE 0.68 0.60 - 1.25 [facility] mg/dL [facility] TOTAL BILI 5.8 (H) 0.1 - 1.1 mg/dL [facility] CALCIUM 7.4 (L) 8.6 - 10.6 [facility] mg/dL [facility] T PROTEIN 8.5 (H) 6.3 - 8.2 g/dL [facility] ALBUMIN 2.7 (L) 3.5 - 5.0 g/dL [facility] ALK PHOS 485 (H) 34 - 122 U/L [facility] ALT(SGPT) 33 9 - 51 U/L [facility] AST(SGOT) 98 (H) 13 - 40 U/L [facility] eGFR Calculation 127.3 mL/min/1.73m2 [facility] [place]) eGFR Calculation 154.3 mL/min/1.73m2 [facility] () [facility] Specimen Blood Narrative Performed At Association of Glomerular Filtration Rate (GFR) [facility] and Staging of Kidney Disease* + + +- + | GFR (mL/min/1.73 m2)| With Kidney Damage|Without Kidney Damage + + +- + |>90| Stage one| Normal + + +- + |60-89|S tage two| Decreased GFR + + +- + |30-59|S tage three| Stage three + + +- + |15-29|S tage four | Stage four + + +- + |<15 (or dialysis)|Stage five | Stage five + + +- + *Each stage assumes the associated GFR level has been in effect for at least three months.Stages 1 to 5, with or without kidney disease, indicate chronic kidney disease. Notes: Determination of stages one and two (with eGFR >59mL/min/1.73 m2) requires estimation of kidney damage for at least three months as defined by structural or functional abnormalities of the kidney, manifested by either: Pathological abnormalities or Markers of kidney damage (including abnormalities in the composition of the blood or urine or abnormalities in imaging tests). Performing Organization Address City/State/Zipcode Phone Number [facility] CLIA: [id number], [address] [place] [address] [facility] documented in this encounter Visit Diagnoses Diagnosis Jaundice - Primary Jaundice, unspecified, not of Alcoholic cirrhosis of liver with ascites Alcoholic cirrhosis of liver Hyperbilirubinemia Disorders of bilirubin excretion Elevated lipase Other nonspecific abnormal serum enzyme levels Anemia, unspecified type Liver mass Unspecified disorder of liver Pain in both lower extremities Obesity (BMI 30-39.9) Obesity, unspecified E44.0 Moderate protein calorie malnutrition Malnutrition of moderate degree documented in this encounter Administered Medications Medication Order MAR Action Action Date Dose Rate Site carisoprodol (SOMA) tablet 350 mg 350 mg, Oral, TIDPRN, Starting Mon11/19/18 at 0645, Until Discontinued, Routine , tingling foLIC acid (FOLATE) tablet 1 mg Given 11/21/2018 8:12 AM CDT 1 mg 1 mg, Oral, DAILY, First dose on Mon11/16/18 at 0900, Until Discontinued, Routine Given 11/20/2018 8:15 AM CDT 1 mg Given 11/19/2018 8:23 AM CDT 1 mg furosemide (LASIX) tablet 40 mg Given 11/21/2018 8:13 AM CDT 40 mg 40 mg, Oral, DAILY, First dose on Mon11/18/18 at 0900, Until Discontinued, Routine Given 11/20/2018 8:15 AM CDT 40 mg Given 11/19/2018 8:27 AM CDT 40 mg HYDROcodone-acetaminophen (NORCO) 10-325 Given 11/21/2018 8:13 AM CDT 1 tablet mg tablet 1 tablet 1 tablet, Oral, Q6HPRN, Starting 11/17/18 at 1825, Until Discontinued, Routine, Pain (scale 7-10) Given 11/18/2018 8:39 PM CDT 1 tablet Given 11/17/2018 7:41 PM CDT 1 tablet hydrocortisone 1 % cream Given 11/21/2018 8:11 AM CDT See Comment Topical (Apply To Affected Areas), DAILY, First dose on Mon11/21/18 at 0130, Until Discontinued, Routine Given 11/21/2018 1:47 AM CDT hydrOXYzine (ATARAX) tablet 10 mg Given 11/21/2018 11:08 AM CDT 10 mg 10 mg, Oral, Q6H, First dose on Mon11/21/18 at 0130, Until Discontinued, Routine Given 11/21/2018 6:33 AM CDT 10 mg Given 11/21/2018 1:47 AM CDT 10 mg KCL (KLOR-CON M20) tablet 40 mEq Given 11/21/2018 8:12 AM CDT 40 mEq 40 mEq, Oral, DAILY, First dose on Mon11/19/18 at 0900, Until Discontinued, Routine Given 11/20/2018 8:15 AM CDT 40 mEq Given 11/19/2018 8:24 AM CDT 40 mEq lactulose (CEPHULAC) solution 15 mL Given 11/21/2018 8:12 AM CDT 15 mL 15 mL, Oral, DAILY, First dose on Mon11/20/18 at 0900, Until Discontinued, Routine Given 11/20/2018 8:15 AM CDT 15 mL levoFLOXacin (LEVAQUIN) tablet 750 mg Given 11/21/2018 10:49 AM CDT 750 mg 750 mg, Oral, Q24H ABX, First dose on Mon11/19/18 at 0945, Until Discontinued, RUPERT, Reason for Anti-Infective: Empiric Therapy for Suspected Infection, Empiric Therapy Site: Respiratory, Duration of therapy: 7 days Given 11/20/2018 9:18 AM CDT 750 mg Given 11/19/2018 9:26 AM CDT 750 mg magnesium oxide (MAG-OX 400) tablet 400 mg Given 11/21/2018 8:12 AM CDT 400 mg 400 mg, Oral, DAILY, First dose on Mon11/19/18 at 0900, Until Discontinued, Routine Given 11/20/2018 8:16 AM CDT 400 mg Given 11/19/2018 8:23 AM CDT 400 mg omeprazole (PRILOSEC) capsule 20 mg Given 11/21/2018 8:13 AM CDT 20 mg 20 mg, Oral, DAILY, First dose on Mon11/16/18 at 1100, Until Discontinued, Routine Given 11/20/2018 8:16 AM CDT 20 mg Given 11/19/2018 8:23 AM CDT 20 mg oxazepam (SERAX) capsule 15 mg Given 11/20/2018 8:36 PM CDT 15 mg 15 mg, Oral, Q4HPRN, Starting Mon11/20/18 at 1303, Until Discontinued, Routine, Only while awake for DBP equal to or greater than 100, HR equal to or greater than 100. Given 11/20/2018 1:48 PM CDT 15 mg rifAXIMin (XIFAXAN) tablet 550 mg Given 11/21/2018 10:50 AM CDT 550 mg 550 mg, Oral, BID, First dose on Mon11/17/18 at 2000, Until Discontinued, Routine, Reason for Anti-Infective: Empiric Therapy for Suspected Infection, Empiric Therapy Site: Abdominal, Duration of therapy: 7 days Given 11/20/2018 9:30 PM CDT 550 mg Given 11/20/2018 8:14 AM CDT 550 mg spironolactone (ALDACTONE) tablet 100 mg Given 11/21/2018 10:49 AM CDT 100 mg 100 mg, Oral, DAILY, First dose on Mon11/18/18 at 0900, Until Discontinued, Routine Given 11/20/2018 8:15 AM CDT 100 mg Given 11/19/2018 8:29 AM CDT 100 mg thiamine (VITAMIN B1) 500 mg in NaCl 0.9% Given 11/21/2018 8:13 AM CDT 500 mg (NS) piggyback IV Piggyback, DAILY, First dose on Mon11/16/18 at 1000, Until Discontinued, 50 mL Given 11/20/2018 8:16 AM CDT 500 mg Given 11/19/2018 8:24 AM CDT 500 mg triamcinolone acetonide (TRIDERM) 0.1 % cream Topical, BID, First dose on Mon11/21/18 at 2000, Until Discontinued, Routine Medication Order MAR Action Action Date Dose Rate Site DOBUTamine (DOBUTREX) Rate Change 11/19/2018 3:45 40 mcg/kg/min 110.52 mL/ hr 500 mg in 250mL(Fixed PM CDT Dose) D5W infusion IV Infusion, CONTINUOUS PRN, Starting Mon11/19/18 at 1533, Until Mon11/19/18 at 1547, Routine Rate Change 11/19/2018 3:42 PM CDT 30 mcg/kg/min 82.89 mL/hr Rate Change 11/19/2018 3:40 PM CDT 20 mcg/kg/min 55.26 mL/hr furosemide (LASIX) injection 20 mg Given 11/16/2018 9:26 AM CDT 20 mg 20 mg, Slow IV Push, Q12H, First dose on Mon11/16/18 at 0800, Until Discontinued, Routine furosemide (LASIX) tablet 20 mg Given 11/17/2018 9:38 AM CDT 20 mg 20 mg, Oral, QAM+PM, First dose on Mon11/16/18 at 1700, Until Discontinued, Routine Given 11/16/2018 5:52 PM CDT 20 mg gadoterate meglumine (DOTAREM-20 mL) Given 11/17/2018 12:15 PM CDT 18.5 mL Left Arm injection 18.5 mL 18.5 mL (0.2 mL/kg 92.5 kg), Intravenous, ONCE, 1 dose, 11/17/18 at 1215, Routine HYDROcodone-acetaminophen (NORCO) 10-325 Given 11/16/2018 11:02 PM CDT 1 tablet mg tablet 1 tablet 1 tablet, Oral, ONCE NOW, 1 dose, 11/17/18 at 0000, Routine iohexol (OMNIPAQUE 350 BULK-100 mL) Given 11/19/2018 2:17 PM CDT 100 mL injection 100 mL 100 mL, Intravenous, ONCE, 1 dose, 11/19/18 at 1430, Routine iohexol (OMNIPAQUE 350 BULK-150 mL) Given 11/15/2018 5:30 PM CDT 120 mL injection 120 mL 120 mL, Intravenous, ONCE, 1 dose, [place] 11/15/18 at 1745, Routine KCL (KLOR-CON M20) tablet 40 mEq Given 11/17/2018 1:03 PM CDT 40 mEq 40 mEq, Oral, ONCE, 1 dose, [facility] 11/17/18 at 1145, Routine lactulose (CEPHULAC) solution 15 mL Given 11/19/2018 8:23 AM CDT 15 mL 15 mL, Oral, BID, First dose on Mon11/16/18 at 0800, Until Discontinued, Routine Given 11/18/2018 8:40 PM CDT 15 mL Given 11/18/2018 9:03 AM CDT 15 mL magnesium sulfate in D5W 1 gram/100 mL RTU IV Given 11/18/2018 3:09 PM CDT 1 g Piggyback 1 g 1 g, IV Piggyback, ONCE NOW, 1 dose, [facility] 11/18/18 at 0730, 100 mL magnesium sulfate in water 2 gram/50 mL (4 %) New Bag 11/18/2018 9:42 PM CDT 2 g infusion 2 g 2 g, IV Piggyback, ONCE, 1 dose, [facility] 11/18/18 at 2145, Routine NaCl 0.9% (NS) IV infusion New Bag 11/19/2018 3:20 PM CDT 50 mL/hr 50 mL/hr IV Infusion, CONTINUOUS PRN, Starting Mon11/19/18 at 1520, Until Mon11/19/18 at 1550, Routine oxazepam (SERAX) capsule 15 mg Given 11/17/2018 12:48 AM CDT 15 mg 15 mg, Oral, Q6H, 4 doses, First dose on Mon11/16/18 at 0600, Last dose on 11/17/18 at 0000, Routine Given 11/16/2018 5:52 PM CDT 15 mg Given 11/16/2018 6:15 AM CDT 15 mg oxazepam (SERAX) capsule 15 mg Given 11/17/2018 10:37 PM CDT 15 mg 15 mg, Oral, Q8H, 3 doses, First dose on 11/17/18 at 0600, Last dose on 11/17/18 at 2200, Routine Given 11/17/2018 2:19 PM CDT 15 mg Given 11/17/2018 6:11 AM CDT 15 mg oxazepam (SERAX) capsule 15 mg Given 11/18/2018 8:39 PM CDT 15 mg 15 mg, Oral, Q12H, 2 doses, First dose on Mon11/18/18 at 0800, Last dose on Mon11/18/18 at 2000, Routine Given 11/18/2018 9:03 AM CDT 15 mg oxazepam (SERAX) capsule 15 mg Given 11/19/2018 5:39 PM CDT 15 mg 15 mg, Oral, Q4HPRN, Starting Mon11/16/18 at 0145, Until Mon11/20/18 at 1303, Routine, Only while awake for DBP equal to or greater than 100, HR equal to or greater than 100. Given 11/19/2018 1:07 PM CDT 15 mg Given 11/16/2018 9:46 AM CDT 15 mg perflutren lipid microspheres (DEFINITY) Given 11/19/2018 3:33 PM CDT 2 mL injection IV Push, TITRATE - FOR PROCEDURE USE, 1 dose, Starting Mon11/19/18 at 1533, Until Mon11/19/18 at 1533, Routine phytonadione (VITAMIN K) 10 mg in NaCl 0.9% Given 11/18/2018 9:03 AM CDT 10 mg (NS) piggyback 10 mg, IV Piggyback, DAILY, 3 doses, First dose on Mon11/16/18 at 1800, Last dose on Mon11/18/18 at 0900, 50 mL Given 11/17/2018 2:20 PM CDT 10 mg Given 11/16/2018 6:37 PM CDT 10 mg pneumococcal 13-agnieszka conj vacc Given 11/21/2018 5:00 PM 0.5 mL Right Deltoid-IM (PREVNAR 13 (PF)) injection 0.5 CDT mL 0.5 mL, Intramuscular, ONCE, 1 dose, Mon11/21/18 at 1730, Routine, Please select approved indication or detail comment: IMMUNODEFICIENCIES OR IMMUNOCOMPROMISED STATUS spironolactone (ALDACTONE) tablet 25 mg Given 11/17/2018 9:38 AM CDT 25 mg 25 mg, Oral, DAILY, First dose on Mon11/16/18 at 0900, Until Discontinued, Routine Given 11/16/2018 9:27 AM CDT 25 mg tc 99m-medronate (DRAXIMAGE Given 11/20/2018 11:20 AM CDT 25 millicuries Left Arm MDP-25) injection 25 millicurie 25 millicurie, Intravenous, ONCE, 1 dose, Mon11/20/18 at 1130, Routine thiamine (VITAMIN B1) tablet 100 mg Given 11/16/2018 9:26 AM CDT 100 mg 100 mg, Oral, DAILY, First dose on Mon11/16/18 at 0900, Until Discontinued, Routine documented in this encounter Insurance Payer Benefit Plan / Subscriber ID Effective Dates Phone Address Type Group [facility] [id number] 2018-Present PPO documented as of this encounter
--- OUTSIDE RECORDS SUMMARY | 2019-05-18 05:18 | XMS REPORT | Summary of Care ---
:1975 Author Organization [facility] Address [address] [place] [address] Care Team Providers Name Role Phone Doris Narayanan Primary Care Provider Encounter Details Date Type Department Care Team Description 11/27/2018 Letter (Out) [facility] Family Doris Narayanan FNP [facility] [address] [facility] [place] [address] [place] [phone] Allergies No Known Allergiesdocumented as of this encounter (statuses as of 11/27/2018) Medications Medication Sig Dispensed Refills Start Date End Date Status foLIC acid 1 mg Take 1 tablet 30 tablet 0 11/22/2018 12/22/2018 Active tabletIndications: by mouth daily Jaundice for 30 days. furosemide 40 mg Take 1 tablet 30 tablet 0 11/22/2018 12/22/2018 Active tabletIndications: by mouth daily Jaundice for 30 days. hydrocortisone 1 % Apply to 1 Tube 0 11/22/2018 12/22/2018 Active creamIndications: affected Jaundice area(s) daily for 30 days. lactulose 10 gram/15 Take 30 mL by 900 mL 0 11/22/2018 12/22/2018 Active mL mouth daily for solutionIndications: 30 days. Jaundice omeprazole 20 mg Take 1 capsule 30 capsule 0 11/22/2018 12/22/2018 Active capsuleIndications: by mouth daily Jaundice for 30 days. spironolactone 100 mg Take 1 tablet 30 tablet 0 11/22/2018 12/22/2018 Active tabletIndications: by mouth daily Jaundice for 30 days. triamcinolone Apply to 15 g 0 11/21/2018 12/05/2018 Active acetonide 0.1 % area(s) 2 (two) creamIndications: times daily for Jaundice 14 days. escitalopram oxalate Take 1 tablet 30 tablet 0 11/27/2018 12/27/2018 Active 10 mg by mouth daily tabletIndications: for 30 doses. Anxious mood Start 10mg daily for the first 2 weeks, then 20mg hence forth hydrOXYzine 50 mg Take 1 tablet 60 tablet 3 11/27/2018 12/27/2018 Active tabletIndications: by mouth every Anxious mood, Pruritus 6 (six) hours as needed for Itching or Anxiety for up to 30 days. documented as of this encounter (statuses as of 11/27/2018) Active Problems Problem Noted Date Liver transplant candidate 11/27/2018 Chronic liver failure without hepatic coma 11/27/2018 Liver mass 11/27/2018 Lack of follow-up after hospitalization 11/27/2018 Lumbar herniated disc 11/27/2018 S/P right knee arthroscopy 11/27/2018 Chronic pain of right knee 11/27/2018 E44.0 Moderate protein calorie malnutrition 11/19/2018 Obesity (BMI 30-39.9) 11/16/2018 Jaundice 11/15/2018 documented as of this encounter (statuses as of 11/27/2018) Immunizations Name Administration Dates Next Due Influenza [...] Health Maintenance Due Date Last Done Comments DTaP,Tdap,and Td Vaccines (1 - Tdap) 1994 INFLUENZA VACCINE 12/23/2018 01/22/2018 PNEUMOCOCCAL 0-64 YEARS COMBINED SERIES ( of - 01/16/2019 11/21/2018 PPSV23) documented as of this encounter Results Not on filedocumented in this encounter
--- OUTSIDE RECORDS SUMMARY | 2019-05-18 05:19 | XMS REPORT | Summary of Care ---
:1975 Author Organization [facility] Address [address] [place] [address] Care Team Providers Name Role Phone Doris Narayanan Primary Care Provider Reason for Referral (Routine) Status Reason Specialty Diagnoses / Procedures Referred By Contact Referred To Contact Closed Psychiatry Diagnoses Anxious mood Doris Narayanan FNP Web-Psychiatry Procedures CONSULT/REFERRAL PSYCHIATRY ADULT [address] [place] [address] A [address] [place] [address] Reason for Visit Reason Comments Establish [facility] F/U 11/15/2018 - 11/21/2018 (6 days) (Routine) Status Reason Specialty Diagnoses / Referred By Referred To Procedures Contact Contact Closed Patient is Family Medicine Diagnoses Otto Fraser, Patient Established with a Procedures Discharge Follow-up: PCP PATIENT DOES NOT HAVE A PCP; 3-5 Days MD Valdo Does Not Have Specific Provider [address] [place] [address] [address] [place], [place] Phone: [phone] Phone: Encounter Details Date Type Department Care Team Description 11/27/2018 [facility] Visit [facility] Doris Narayanan FNP Anxious mood (Primary Dx); [facility] [place] [address] [address] [facility] Lack of follow-up after hospitalization; [address] [place] [address] [place], [place] [phone] Allergies No Known Allergiesdocumented as of this encounter (statuses as of 12/04/2018) Medications Medication Sig Dispensed Refills Start Date [...] 9 Jaundice area(s) daily for 30 days. lactulose 10 gram/15 Take 30 mL by 900 mL 0 11/22/2018 Active mL mouth daily 9 solutionIndications: for 30 days. Jaundice omeprazole 20 mg Take [...] (two) times Jaundice daily for 14 days. escitalopram oxalate Take 1 tablet 30 tablet 0 11/27/2018 Active 10 mg by mouth daily 9 tabletIndications: for 30 doses. Anxious mood Start 10mg daily for the first 2 weeks, then 20mg hence forth hydrOXYzine 50 mg Take 1 tablet 60 tablet 3 11/27/2018 Active tabletIndications: by mouth every 9 Anxious mood 6 (six) hours as needed for Itching or Anxiety for up to 30 days. hydrOXYzine 10 mg Take 1 tablet 40 tablet 0 11/21/2018 Discontinued tabletIndications: by mouth every 9 Jaundice 6 (six) hours as needed for Itching for up to 10 days. documented as of this encounter (statuses as of 12/04/2018) Active Problems Problem Noted Date Liver transplant candidate 11/27/2018 Chronic liver failure without hepatic coma 11/27/2018 Liver mass 11/27/2018 Lack of follow-up after hospitalization 11/27/2018 Lumbar herniated disc 11/27/2018 S/P right knee arthroscopy 11/27/2018 Chronic pain of right knee 11/27/2018 E44.0 Moderate protein calorie malnutrition 11/19/2018 Obesity (BMI 30-39.9) 11/16/2018 Jaundice 11/15/2018 documented as of this encounter (statuses as of 12/04/2018) Immunizations Name Administration Dates Next Due Influenza [...] Sign Reading Time Taken Comments Blood Pressure 138/83 11/27/2018 1:20 PM CDT Pulse 88 11/27/2018 1:20 PM CDT Temperature 37.1 C (98.7 F) 11/27/2018 1:20 PM CDT Respiratory Rate - - Oxygen Saturation 98% 11/27/2018 1:20 PM CDT Inhaled Oxygen Concentration - - Weight 84.4 kg (186 lb) 11/27/2018 1:20 PM CDT Height 175.3 cm (5' 9") 11/27/2018 1:20 PM CDT Body Mass Index 27.47 11/27/2018 1:20 PM CDT documented in this encounter Progress Notes Doris Narayanan FNP - 11/27/2018 1:00 PM CDT Cc: Chief Complaint Patient presents with [facility] F/U 11/15/2018 - 11/21/2018 (6 days) Stuart Glass is a 43 year old male. Patient is here as a follow up hospitalization. He was seen at the ER here for jaundice, and was transferred from here to [place] for further eval and tx., there he was noted to have liver failure related to liver mass. He was a heavy drinking, has chronic pain and on routine medication with acetaminophen. 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 He was given medication for anxiety while hospitalized but none upon discharge. He denies any suicidal or homicidal ideation. Due to his icterus he was given hydroxyzine for the itching but had helps mildly. Allergies Stuart has No Known Allergies. Medications Outpatient Medications Prior to Visit Medication Sig Dispense Refill foLIC acid 1 mg tablet Take 1 tablet by mouth daily for 30 days. 30 tablet 0 furosemide 40 mg tablet Take 1 tablet by mouth daily for 30 days. 30 tablet 0 hydrocortisone 1 % cream Apply to affected area(s) daily for 30 days. 1 Tube 0 lactulose 10 gram/15 mL solution Take 30 mL by mouth daily for 30 days. 900 mL 0 omeprazole 20 mg capsule Take 1 capsule by mouth daily for 30 days. 30 capsule 0 spironolactone 100 mg tablet Take 1 tablet by mouth daily for 30 days. 30 tablet 0 triamcinolone acetonide 0.1 % cream Apply to area(s) 2 (two) times daily for 14 days. 15 g 0 hydrOXYzine 10 mg tablet Take 1 tablet by mouth every 6 (six) hours as needed for Itching for upto 10 days. 40 tablet 0 No facility-administered medications prior to visit. 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 Drug use: Never Sexual activity: Not on file Lifestyle Physical activity: Days per week: Not on file Minutes per session: Not on file Stress: Not on file Relationships Social connections: Talks on phone: Not on file Gets together: Not on file Attends restoration service: Not on file Active member of club or organization: Not on file Attends meetings of clubs or organizations: Not on file Relationship status: Not on file Intimate partner violence: Fear of current or ex partner: Not on file Emotionally abused: Not on file Physically abused: Not on file Forced sexual activity: Not on file Other Topics Concern Not on file Social History Narrative Not on file Family History Problem Relation Age of Onset Hypertension Mother Diabetes Father Liver Cancer NoFHx Review of Systems Constitutional: Positive for activity change and fatigue. HENT: Negative. Eyes: Positive for itching (jaudice). Respiratory: Negative. Cardiovascular: Negative. Gastrointestinal: Positive for abdominal pain (none acute, related to liiver disease). Skin: Positive for color change (jaundice). Neurological: Negative. Psychiatric/Behavioral: The patient is nervous/anxious. Vital Signs BP 138/83 | Pulse 88 | Temp 37.1 C (98.7 F) (Tympanic) | Ht 5' 9" (1.753 m) | Wt 186 lb (84.4 kg) | SpO2 98% | BMI 27.47 kg/m Physical Exam Constitutional: He is oriented to person, place, and time. He appears well- developed. No distress. HENT: Head: Normocephalic. Right Ear: External ear normal. Left Ear: External ear normal. Nose: Nose normal. Mouth/Throat: Oropharynx is clear and moist. No oropharyngeal exudate. Eyes: Pupils are equal, round, and reactive to light. Conjunctivae and EOM are normal. Scleral icterus is present. Neck: Neck supple. Cardiovascular: Normal rate, regular rhythm, normal heart sounds and intact distal pulses. Exam reveals no gallop and no friction rub. No murmur heard. Pulmonary/Chest: Effort normal and breath sounds normal. No stridor. No respiratory distress. He hasno wheezes. He has no rales. He exhibits no tenderness. Abdominal: Soft. Bowel sounds are normal. He exhibits no distension. There is tenderness (right quadrant ). There is no rebound and no guarding. Musculoskeletal: Normal range of motion. He exhibits no edema or tenderness. Neurological: He is alert and oriented to person, place, and time. No cranial nerve deficit. Coordination normal. Skin: Skin is warm and dry. Capillary refill takes less than 2 seconds. Bruising noted. He is not diaphoretic. There is pallor. Jaundiced, liver spots Psychiatric: His speech is normal and behavior is normal. Judgment and thought content normal. His mood appears anxious. Cognition and memory are normal. He exhibits a depressed mood. He expresses no homicidal and no suicidal ideation. Nursing note and vitals reviewed. Assessment/Plan 1. Follow up visit: diagnoses and treatment given in during hospitalization reviewed and updated into patients medical hx. Patient. To continue care as scheduled with the specialist (air pollution specialist). RTC As needed, he is given a work note to cover for the day in was hospitalized to date. 2. Anxious mood: Escitalopram started for now until patient see psych for further eval, and continued care. Referral to psych made. Atarax also ordered PRN for anxiety and the pruritus from jaundice. RTC if with any acute suicidal or homicidal ideation from this medication. Follow up within 2-3 weeks if no appointment if made with psych yet. Pruritus from jaundice: atarax increased from 10mg to 50mg PRN for anxiety and the itching. Plan of care, desired health behaviors, goals, and medication discussed with patient. Education resources provided and reviewed with AVS. Patient/ verbalized understanding & agrees to plan of care. This visit did not involve counseling and coordination that comprised more than 50% of the visit time. If applicable, the [facility] database was accessed to review any controlled substance prescription claims data. The [employer] prescription claims data in [employer] was reviewed to assess patient compliance with the medication treatment plan. documented in this encounter Plan of Treatment Health Maintenance Due Date Last Done Comments DTaP,Tdap,and Td Vaccines (1 - Tdap) 1994 INFLUENZA VACCINE 12/23/2018 01/22/2018 PNEUMOCOCCAL 0-64 YEARS COMBINED SERIES (2 of 3 - 01/16/2019 11/21/2018 PPSV23) documented as of this encounter Results Not on filedocumented in this encounter Visit Diagnoses Diagnosis Anxious mood - Primary Anxiety state, unspecified Lack of follow-up after hospitalization Personal history of noncompliance with medical treatment, presenting hazards to health Jaundice Jaundice, unspecified, not of documented in this encounter
--- OUTSIDE RECORDS SUMMARY | 2019-05-18 05:19 | XMS REPORT | Summary of Care ---
:1975 Author Organization [facility] Address [address] [place] [id number] Care Team Providers Name Role Phone Doris Narayanan Primary Care Provider Reason for Visit Reason Comments Rx Concern/Question Encounter Details Date Type Department Care Team Description 12/07/2018 Telephone [facility] Family Doris Narayanan FNP Rx Concern/Question Medicine - [address] [facility] [address] [place] [address] [place], [place] [phone] Allergies No Known Allergiesdocumented as of this encounter (statuses as of 12/10/2018) Medications Medication Sig Dispensed Refills Start Date [...] by mouth daily Jaundice for 30 days. escitalopram oxalate Take 1 tablet 30 tablet 0 11/27/2018 12/27/2018 Active 10 mg by mouth daily tabletIndications: for 30 doses. Anxious mood Start 10mg daily for the first 2 weeks, then 20mg hence forth hydrOXYzine 50 mg Take 1 tablet 60 tablet 3 11/27/2018 12/27/2018 Active tabletIndications: by mouth every Anxious mood 6 (six) hours as needed for Itching or Anxiety for up to 30 days. documented as of this encounter (statuses as of 12/10/2018) Active Problems Problem Noted Date Liver transplant candidate 11/27/2018 Chronic liver failure without hepatic coma 11/27/2018 Liver mass 11/27/2018 Lack of follow-up after hospitalization 11/27/2018 Lumbar herniated disc 11/27/2018 S/P right knee arthroscopy 11/27/2018 Chronic pain of right knee 11/27/2018 E44.0 Moderate protein calorie malnutrition 11/19/2018 Obesity (BMI 30-39.9) 11/16/2018 Jaundice 11/15/2018 documented as of this encounter (statuses as of 12/10/2018) Immunizations Name Administration Dates Next Due Influenza [...] Vaccines (1 - Tdap) 1994 INFLUENZA VACCINE (#1) 2018 01/22/2018 PNEUMOCOCCAL 0-64 YEARS COMBINED SERIES (2 of 3 - 01/16/2019 11/21/2018 PPSV23) documented as of this encounter Results Not on filedocumented in this encounter
--- OUTSIDE RECORDS SUMMARY | 2019-05-18 05:19 | XMS REPORT | Summary of Care ---
:1975 Author Organization [facility] Address [address] [place] [address] Care Team Providers Name Role Phone Doris Narayanan Primary Care Provider Reason for Referral (Routine) Status Reason Specialty Diagnoses / Referred By Referred To Procedures Contact Contact New Request Psychiatry Diagnoses Anxious mood Doris Narayanan, Web-Psychiatry Procedures CONSULT/REFERRAL PSYCHIATRY ADULT MEDICAL TRANSLATOR Staff [address] [place] [address] [place] [phone] Phone: Reason for Visit Reason Comments [facility] F/U 11/15/2018 - 11/21/2018 (6 days) Encounter Details Date Type Department Care Team Description 11/27/2018 Office Visit [facility] Family Doris Narayanan FNP Anxious mood (Primary Dx); Medicine - [address] Lack of follow-up after hospitalization; [address] [place] [phone] [place], [place] [phone] Allergies No Known Allergiesdocumented as of this [...] documented in this encounter Progress Notes Doris Narayanan, ELIJAH - 11/27/2018 1:00 PM CDT Cc: Chief Complaint Patient presents with [facility] F/U 11/15/2018 - 11/21/2018 (6 days) Stuart Glass is a 43 year old male. Patient is here as a follow up hospitalization. He was seen at the ER here for jaundice, and was transferred from here to [place] for further eval and tx., there he [...] pain Past Surgical History: Procedure Laterality Date [place] ANESTH,KNEE AREA SURGERY 2015 Social History Socioeconomic History Marital status: Single Spouse name: Not on file Number of children: Not on file Years of education: Not on file Highest education level: Not on file Occupational History Occupation: long[employer] Social Needs Financial resource strain: Not on [...] file Gets together: Not on file Attends nondenominational service: Not on file Active member of [...] continue care as scheduled with the specialist (senior designer). RTC As needed, he is given a [...] of the visit time. If applicable, the [place] [employer] database was accessed to review any controlled substance prescription claims data. The [employer] prescription claims data in [employer] was reviewed to assess patient compliance with the medication treatment plan. documented in this encounter Plan of Treatment Health Maintenance Due Date Last Done Comments DTaP,Tdap,and Td Vaccines (1 - Tdap) 1994 INFLUENZA VACCINE 12/23/2018 01/22/2018 PNEUMOCOCCAL 0-64 YEARS COMBINED SERIES (1 of - 01/16/2019 11/21/2018 PPSV23) documented as of this encounter Results Not on filedocumented in this encounter Visit Diagnoses Diagnosis Anxious mood - Primary Anxiety state, unspecified Lack of follow-up after hospitalization Personal history of noncompliance with medical treatment, presenting hazards to health Jaundice Jaundice, unspecified, not of documented in this encounter
--- OUTSIDE RECORDS SUMMARY | 2019-05-18 05:19 | XMS REPORT | Summary of Care ---
:1975 Author Organization [facility] Address [address] [place] [address] Care Team Providers Name Role Phone Doirs Narayanan Primary Care Provider Reason for Referral (Routine) Status Reason Specialty Diagnoses / Referred By Referred To Procedures Contact Contact New Request Psychiatry Diagnoses Anxious mood Doris Narayanan, Web-Psychiatry Procedures CONSULT/REFERRAL PSYCHIATRY ADULT SKEIN BLEACHER Staff [address] [place] [address] [address] [place] [phone] Phone: Reason for Visit Reason Comments [facility] F/U 11/15/2018 - 11/21/2018 (6 days) Encounter Details Date Type Department Care Team Description 11/27/2018 Office Visit [facility] Family Doris Narayanan FNP Anxious mood (Primary Dx); Medicine - [address] Lack of follow-up after hospitalization; [address] [place] [address] [place], [place] [phone] Allergies No Known Allergiesdocumented as of [...] CDT Cc: Chief Complaint Patient presents with [facility] F/U 11/15/2018 - 11/21/2018 (6 days) Stuart Glass is a 43 year old male. Patient is here as a follow up hospitalization. He was seen at the ER here for jaundice, and was transferred from here to [place] for further eval and tx., there he [...] pain Past Surgical History: Procedure Laterality Date [place] ANESTH,KNEE AREA SURGERY 2015 Social History Socioeconomic History Marital status: Single Spouse name: Not on file Number of children: Not on file Years of education: Not on file Highest education level: Not on file Occupational History Occupation: [employer] Social Needs Financial resource strain: Not on [...] file Gets together: Not on file Attends protestant service: Not on file Active member of [...] continue care as scheduled with the specialist (plasterer journeyman). RTC As needed, he is given a [...] of the visit time. If applicable, the [facility] database was accessed to review any controlled substance prescription claims data. The [employer] prescription claims data in [employer] was reviewed to assess patient compliance with [...]
--- OUTSIDE RECORDS SUMMARY | 2019-05-18 05:19 | XMS REPORT | Summary of Care ---
:1975 Author Organization [facility] Address [address] [place] [address] Care Team Providers Name Role Phone Doris Narayanan Primary Care Provider Reason for Visit Reason Comments Follow-up shaking Encounter Details Date Type Department Care Team Description 12/11/2018 Office Visit [facility] Family Jann Torres Chronic liver failure without hepatic coma (Primary Dx); Medicine - Denita Olivier MD Other fatigue [address] [facility] [address] [facility] [phone] Allergies No Known Allergiesdocumented as of this encounter (statuses as of 12/11/2018) Medications Medication Sig Dispensed Refills Start Date [...] as of this encounter (statuses as of 12/11/2018) Active Problems Problem Noted Date Liver transplant candidate 11/27/2018 Chronic liver failure without hepatic coma 11/27/2018 Liver mass 11/27/2018 Lack of follow-up after hospitalization 11/27/2018 Lumbar herniated disc 11/27/2018 S/P right knee arthroscopy 11/27/2018 Chronic pain of right knee 11/27/2018 E44.0 Moderate protein calorie malnutrition 11/19/2018 Obesity (BMI 30-39.9) 11/16/2018 Jaundice 11/15/2018 documented as of this encounter (statuses as of 12/11/2018) Immunizations Name Administration Dates Next Due Influenza [...] Sign Reading Time Taken Comments Blood Pressure 140/80 12/11/2018 3:18 PM CDT Pulse 70 12/11/2018 3:18 PM CDT Temperature 37 C (98.6 F) 12/11/2018 3:16 PM CDT Respiratory Rate 16 12/11/2018 3:16 PM CDT Oxygen Saturation - - Inhaled Oxygen Concentration - - Weight 82.7 kg (182 lb 6.4 oz) 12/11/2018 3:16 PM CDT Height 175.3 cm (5' 9") 12/11/2018 3:16 PM CDT Body Mass Index 26.94 12/11/2018 3:16 PM CDT documented in this encounter Progress Notes Jann Torres MD - 12/11/2018 3:30 PM CDT CC: patient very tired and fatigued; losing weight Stuart is a 43 year old male Patient has cirrhosis and needs a liver transplant; he is currently trying to get on a plan to coverhim but he is currently uninsured. Patient is interested in getting his testosterone checked and replaced if necessary. No Known Allergies Current Outpatient Medications Medication Sig Dispense Refill escitalopram oxalate 10 mg tablet Take 1 tablet by mouth daily for 30 doses. Start 10mg daily for the first 2 weeks, then 20mg hence forth 30 tablet 0 hydrOXYzine 50 mg tablet Take 1 tablet by mouth every 6 (six) hours as needed for Itching or Anxiety for up to 30 days. 60 tablet 3 foLIC acid 1 mg tablet Take 1 [...] daily for 30 days. 30 tablet 0 No current facility-administered medications for this visit. Past Medical History: Diagnosis Date Chronic back pain Past Surgical History: Procedure Laterality Date [place] ANESTH,KNEE AREA SURGERY 2016 Social History Socioeconomic [...] file Gets together: Not on file Attends zoroastrianism service: Not on file Active member of [...] Father Liver Cancer NoFHx Review of Systems BP (!) 140/80 (BP Location: Left arm, Patient Position: Sitting, BP CUFF SIZE: Adult Large) | Pulse70 | Temp 37 C (98.6 F) (Oral) | Resp 16 | Ht 5' 9" (1.753 m) | Wt 182 lb 6.4 oz (82.7 kg) | BMI 26.94 kg/m Physical Exam Constitutional: He is oriented to person, place, and time. He has a sickly appearance. HENT: Head: Normocephalic and atraumatic. Eyes: Conjunctivae are normal. Neck: Normal range of motion. Neck supple. No JVD present. No tracheal deviation present. No thyromegaly present. Cardiovascular: Normal rate, regular rhythm, normal heart sounds and intact distal pulses. Exam reveals no gallop and no friction rub. No murmur heard. Pulmonary/Chest: Effort normal and breath sounds normal. No respiratory distress. He has no wheezes.He has no rales. He exhibits no tenderness. Abdominal: Soft. Bowel sounds are normal. He exhibits no distension and no mass. There is no tenderness. There is no rebound and no guarding. Musculoskeletal: Normal range of motion. He exhibits no edema or tenderness. Lymphadenopathy: He has no cervical adenopathy. Neurological: He is alert and oriented to person, place, and time. Skin: Skin is warm and dry. Diagnosis: 1. Chronic liver failure without hepatic coma TESTOSTERONE 2. Other fatigue TESTOSTERONE Follow up: prn Patient Care Team: Jann Torres MD as PCP - General ([facility]-FAMILY MEDICINE) Plan of care, desired health behaviors, goals,& medication discussed with patient. Education resources & self management tools provided and reviewed with AVS. Patient/guardian/family verbalized understanding & agrees to plan of care. Barriers to care: None Ability to manage care: Good documented in this encounter Plan of Treatment Name Type Priority Associated Diagnoses Order Schedule TESTOSTERONE LAB Routine Chronic liver failure without hepatic Ordered: coma Other fatigue Health Maintenance Due Date Last Done Comments DTaP,Tdap,and Td Vaccines (1 - Tdap) 1994 INFLUENZA VACCINE (#1) 2018 01/22/2018 PNEUMOCOCCAL 0-64 YEARS COMBINED SERIES (2 of 3 - 01/16/2019 11/21/2018 PPSV23) documented as of this encounter Results Not on filedocumented in this encounter Visit Diagnoses Diagnosis Chronic liver failure without hepatic coma - Primary Other fatigue documented in this encounter
--- OUTSIDE RECORDS SUMMARY | 2019-05-18 05:20 | XMS REPORT | Summary of Care ---
:[address] [facility] Address [address] [place] [address] Care Team Providers Name Role Phone Doris Narayanan Primary Care Provider Reason for Visit Reason Comments Follow-up shaking LAB WORK Encounter Details Date Type Department Care Team Description 12/11/2018 Office Visit [facility] Family Jann Torres Chronic liver failure without hepatic coma (Primary Dx); Medicine - Denita Olivier MD Other fatigue [address] [facility] [facility] [address] [place], [facility] [place] [phone] Allergies No Known Allergiesdocumented as of this [...] CDT documented in this encounter Progress Notes Yuliana Guerin - 12/11/2018 3:30 PM CDTVenipuncture Collection performed by clean technique. Total of 1 attempts were made. Slight pressureand a bandage/ dressing were applied to the site(s). The patient experienced no complications. Specimens were sent processed to [facility] laboratories. ann Torres MD - 12/11/2018 3:30 PM CDT [...] pain Past Surgical History: Procedure Laterality Date [place] ANESTH,KNEE AREA SURGERY 2016 Social History Socioeconomic [...] file Gets together: Not on file Attends congregational service: Not on file Active member of [...]
--- OUTSIDE RECORDS SUMMARY | 2019-05-18 05:20 | XMS REPORT | Summary of Care ---
:1975 Author Organization [facility] Address [address] [place] [address] Care Team Providers Name Role Phone Doris Narayanan Primary Care Provider Reason for Visit Reason Comments Follow-up shaking Encounter Details Date Type Department Care Team Description 12/11/2018 Office Visit [facility] Family Jann Torres Chronic liver failure without hepatic coma (Primary Dx); Medicine - Denita Olivier MD Other fatigue [address] [facility] [address] [facility] [place] [phone] Allergies No Known Allergiesdocumented as of this [...] pain Past Surgical History: Procedure Laterality Date [place] ANESTH,KNEE AREA SURGERY 2016 Social History Socioeconomic [...] file Gets together: Not on file Attends holiness service: Not on file Active member of [...]
--- OUTSIDE RECORDS SUMMARY | 2019-05-18 05:21 | XMS REPORT | Summary of Care ---
:1975 Author Organization [facility] Address [address] [place] [address] Care Team Providers Name Role Phone Doris Narayanan Primary Care Provider Reason for Visit Reason Comments Rx Concern/Question Encounter Details Date Type Department Care Team Description 12/25/2018 Telephone [facility] Doris Narayanan FNP Rx Concern/Question Medicine - [address] [facility] [address] [place] [address] [place], [place] [phone] Allergies No Known Allergiesdocumented as of this encounter (statuses as of 12/27/2018) Medications Medication Sig Dispensed Refills Start Date End Date Status escitalopram oxalate Take 1 tablet by 30 tablet 0 11/27/2018 12/27/2018 Active 10 mg mouth daily for tabletIndications: 30 doses. Start Anxious mood 10mg daily for the first 2 weeks, then 20mg hence forth hydrOXYzine 50 mg Take 1 tablet by 60 tablet 3 11/27/2018 12/27/2018 Active tabletIndications: mouth every 6 Anxious mood (six) hours as needed for Itching or Anxiety for up to 30 days. documented as of this encounter (statuses as of 12/27/2018) Active Problems Problem Noted Date Liver transplant candidate 11/27/2018 Chronic liver failure without hepatic coma 11/27/2018 Liver mass 11/27/2018 Lack of follow-up after hospitalization 11/27/2018 Lumbar herniated disc 11/27/2018 S/P right knee arthroscopy 11/27/2018 Chronic pain of right knee 11/27/2018 E44.0 Moderate protein calorie malnutrition 11/19/2018 Obesity (BMI 30-39.9) 11/16/2018 Jaundice 11/15/2018 documented as of this encounter (statuses as of 12/27/2018) Immunizations Name Administration Dates Next Due Influenza [...]
--- OUTSIDE RECORDS SUMMARY | 2019-05-18 05:21 | XMS REPORT | Summary of Care ---
:1975 Author Organization [facility] Address [address] [place] [address] Care Team Providers Name Role Phone Doris Narayanan Primary Care Provider Encounter Details Date Type Department Care Team Description 12/04/2018 Orders Only [facility] Doctor Unassigned, No [address] [facility] [place] [address] [address] [place] [address] Allergies No Known Allergiesdocumented as of this encounter (statuses as of 12/13/2018) Medications Medication Sig Dispensed Refills Start Date [...] as of this encounter (statuses as of 12/13/2018) Active Problems Problem Noted Date Liver transplant candidate 11/27/2018 Chronic liver failure without hepatic coma 11/27/2018 Liver mass 11/27/2018 Lack of follow-up after hospitalization 11/27/2018 Lumbar herniated disc 11/27/2018 S/P right knee arthroscopy 11/27/2018 Chronic pain of right knee 11/27/2018 E44.0 Moderate protein calorie malnutrition 11/19/2018 Obesity (BMI 30-39.9) 11/16/2018 Jaundice 11/15/2018 documented as of this encounter (statuses as of 12/13/2018) Immunizations Name Administration Dates Next Due Influenza [...] 11/21/2018 [id number]) documented as of this encounter Procedures Procedure Name Priority Date/Time Associated Diagnosis Comments MEDICAL Routine 12/04/2018 12:01 AM CDT RELEASE/CLEARANCE FORMS documented in this encounter Results Not on filedocumented in this encounter
--- OUTSIDE RECORDS SUMMARY | 2019-05-18 05:21 | XMS REPORT | Summary of Care ---
:1975 Author Organization [facility] Address [address] [place] [address] Care Team Providers Name Role Phone Doris Narayanan Primary Care Provider Reason for Visit Reason Comments Follow-up shaking LAB WORK Encounter Details Date Type Department Care Team Description 12/11/2018 Office Visit [facility] Family Jann Torres Chronic liver failure without hepatic coma (Primary Dx); Medicine - Denita Olivier MD Other fatigue [address] [facility] [address] [place], [place] [phone] Allergies No Known Allergiesdocumented as of this encounter (statuses as of 12/12/2018) Medications Medication Sig Dispensed Refills Start Date [...] as of this encounter (statuses as of 12/12/2018) Active Problems Problem Noted Date Liver transplant candidate 11/27/2018 Chronic liver failure without hepatic coma 11/27/2018 Liver mass 11/27/2018 Lack of follow-up after hospitalization 11/27/2018 Lumbar herniated disc 11/27/2018 S/P right knee arthroscopy 11/27/2018 Chronic pain of right knee 11/27/2018 E44.0 Moderate protein calorie malnutrition 11/19/2018 Obesity (BMI 30-39.9) 11/16/2018 Jaundice 11/15/2018 documented as of this encounter (statuses as of 12/12/2018) Immunizations Name Administration Dates Next Due Influenza [...] no complications. Specimens were sent processed to [facility] laboratories. ann Torres MD - 12/11/2018 3:30 [...] pain Past Surgical History: Procedure Laterality Date [place] ANESTH,KNEE AREA SURGERY 2016 Social History Socioeconomic [...] file Gets together: Not on file Attends rastafari service: Not on file Active member of [...] Procedure Name Priority Date/Time Associated Diagnosis Comments TESTOSTERONE Routine 12/11/2018 3:38 PM Chronic liver failure Results for this CDT without hepatic coma procedure are in the Other fatigue results section. documented in this encounter Results TESTOSTERONE (12/11/2018 3:38 PM CDT) TESTOST 138.0 132.0 - 813.0 ng/dL [facility] Specimen Blood - ARM, LEFT Narrative Performed At Normal Ranges [facility] Adult Female:6-77 ng/dL Adult Male <50 years:132-813 ng/dL Adult Male >50 years:72-623 ng/dL Females on Control Pills may have higher results. Obese patients may have lower results. Biotin has been reported to cause a negative bias, interpret results relative to patient's use of biotin. Performing Organization Address City/State/Zipcode Phone Number [facility] CLIA: [id number], [address] [place] [address] [facility] documented in this encounter Visit Diagnoses Diagnosis Chronic liver failure without hepatic coma - Primary Other fatigue documented in this encounter
--- OUTSIDE RECORDS SUMMARY | 2019-05-18 05:22 | XMS REPORT | Summary of Care ---
:1975 Author Organization [facility] Address [address] [place] [address] Care Team Providers Name Role Phone Doris Narayanan Primary Care Provider Reason for Visit Reason Comments Rx Concern/Question Encounter Details Date Type Department Care Team Description 12/27/2018 Telephone [facility] Doris Narayanan FNP Rx Concern/Question Medicine - [address] [facility] [address] [place] [address] [place], [place] [phone] Allergies No Known Allergiesdocumented as of this [...]
--- OUTSIDE RECORDS SUMMARY | 2019-05-18 05:22 | XMS REPORT | Summary of Care ---
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 [address] [phone] Reason for Visit Reason Comments Referral/consult Encounter Details Date Type Department Care Team Description 12/31/2018 Telephone [facility] Doris Narayanan FNP Referral/consult Medicine - [place] [address] [address] [place], [place] [phone] Allergies No Known Allergiesdocumented as of this encounter (statuses as of 12/31/2018) Medications No known medicationsdocumented as of this encounter (statuses as of 12/31/2018) Active Problems Problem Noted Date Liver transplant candidate 11/27/2018 Chronic liver failure without hepatic coma 11/27/2018 Liver mass 11/27/2018 Lack of follow-up after hospitalization 11/27/2018 Lumbar herniated disc 11/27/2018 S/P right knee arthroscopy 11/27/2018 Chronic pain of right knee 11/27/2018 E44.0 Moderate protein calorie malnutrition 11/19/2018 Obesity (BMI 30-39.9) 11/16/2018 Jaundice 11/15/2018 documented as of this encounter (statuses as of 12/31/2018) Immunizations Name Administration Dates Next Due Influenza [...] filedocumented in this encounter Visit Diagnoses Diagnosis Liver mass - Primary Unspecified disorder of liver documented in this encounter
--- OUTSIDE RECORDS SUMMARY | 2019-05-18 05:23 | XMS REPORT ---
:1975 [facility] [address] [place] [address] Care Team Providers Name Role Phone DINA CERVANTES Unavailable Unavailable RANDALL ELENA Unavailable Unavailable Problems This patient has no known problems. Allergies, Adverse Reactions, Alerts This patient has no known allergies or adverse reactions. Medications This patient has no known medications. Results Test Description Test Time Test Comments Text Results Atomic Results Result Comments BONE AND/OR 2019-03-19 Referring: FINAL REPORT PATIENT ID: JOINT [facility]AGING, 17:24:00 [facility] [id number] PROCEDURE: BONE WHOLE BODY SCAN, WHOLE BODY CPT CODE: 36942 INDICATION: Hepatocellular carcinoma C22.0, preoperative evaluation for liver transplant Z01.818 PROTOCOL: 21.0 mCi of Tc-99m MDP was injected intravenously. Whole body and selected spot images were obtained approximately 3 hours later. FINDINGS: There is focally increased tracer activity in the right seventh through ninth ribs at the costochondral junctions. There is focally, moderately increased tracer activity in the posterior left seventh and eighth ribs and right sixth rib.Tracer activity is increased in the in the knees, ankles/feet, and sternoclavicular and acromioclavicular joints. Irregular tracer activity in the thoracic spine. IMPRESSION: 1.Focally increased tracer activity in the ribs is most consistent with previous rib fractures.2.No definite evidence of osseous neoplasm.3.Degenerative changes of the axial and appendicular skeleton. Images for comparison/correlation were CT of the chest dated 03/14/2019. Signed: Jackie Whitmore MDReport Verified Date/Time: 03/19/2019 17:24:54 Reading Location: [address] Reading Room T3 2019-03-15 17:05:00 Test Item Value Reference Range Comments T3 TOTAL ([place]) (test qamg=217) 65 ng/dL 48-159 RAD, BONE DENSITY [id number] 15:06:00Referring: Dr. Yuniel Loza for Exam:->HCC,ETOH,CIRRHOSIS, PRE TRANSPLANT EVALUATIONFINAL REPORT Bone density study, 03/14/2019 Clinical History: Screening Bone mineral density measurementLumbar spine1.384 gm/cm1Xlqnsqo neck1.092 gm/cm2 Standard deviation from young adult population (T-score)Lumbar spine1.4Femoral neck0.2 Standard deviation for age adjustedpopulation (Z-score)Lumbar spine1.1Femoral neck0.4 According to medical literature, this corresponds to no increased risk of an osteoporotic fracture of the lumbar spine as compared to the young adultpopulation. The femoral neck bone mineral density corresponds to no increased risk of an osteoporotic fracture as compared to the young adult population. Impression: Normal. Complete computer analysis will be sent shortly. Diagnostic criteria for osteoporosisBMD: Bone mineral density Normal : BMD measurement less than one standard deviation from young adult populationOsteopenia: BMD measurement between 1 and 2.5 standard deviationsOsteoporosis: BMD measurement greater than 2.5 standard deviationsSevere osteoporosis: Osteoporosis and one or more fragility fractures Signed: Dona Worthyeport Verified Date/Time: 03/15/2019 15:06:54 Reading Location: [address] Reading Room HEPATITIS A ANTIBODY, [id number] 14:48:00 Test Item Value Reference Range Comments HEPATITIS A IGG ANTIBODY ([place]) (test cwom=3215) Reactive Nonreactive CT, CHEST, WITHOUT [id number] 14:22:00Referring: Dr. Yuniel OliveiraINAL REPORT TECHNIQUE: CT of the chest WITHOUT intravenous contrast. Dose modulation, iterative reconstruction, and/or weight-based adjustment of the mA/kV was utilized to reduce the radiation dose to as low as reasonably achievable. INDICATION: 44-year-old man with cirrhosis and hepatocellular carcinoma. COMPARISON: None. FINDINGS: ABSENCE OF INTRAVENOUS CONTRAST DECREASES SENSITIVITY FOR DETECTION OF FOCAL LESIONS AND VASCULAR PATHOLOGY. LINES/TUBES: None. LUNGS AND AIRWAYS: Mild dependent atelectasis in the left lower lobe. The lungs and airways are unremarkable. PLEURA: The pleural spaces are clear. HEART AND MEDIASTINUM: The visualized thyroid gland is normal. No significant mediastinal, hilar, or axillary lymphadenopathy. The heart and pericardium are within normallimits. SOFT TISSUES AND BONES: Degenerative changes of the visualized spine. Subacute-chronic posttraumatic deformities of the lateral right seventh, eighth, and ninth ribs. Mild gynecomastia bilaterally. UPPER ABDOMEN: Please refer to abdomen MRI report from same date for further details. IMPRESSION:No metastases in the chest. Signed: Tali Barraganeport Verified Date/Time: 03/14/2019 14:22:43 Reading Location: [address] Radiology Reading Room MR, ABDOMEN, [id number] 14:05:00Referring: Dr. Yuniel Fraga Abdominal VesselsFINAL REPORT TECHNIQUE: MRI of the abdomen WITHOUT and WITH intravenous contrast. INDICATION: 44-year-old man with cirrhosis and hepatocellular carcinoma. COMPARISON: None. FINDINGS: LOWER THORAX: Unremarkable. LIVER: Cirrhotic morphology of the liver. Arterially enhancing lesions with washout and pseudocapsule, consistent with hepatocellular carcinoma , measure (all seen on axial postcontrast arterial series):*3.1 x 3 cm in segment VIII (image 34)*2.1 x 1.3 cm in segment VIII(image 34) Arterially enhancing lesions with washout, suspicious for hepatocellular carcinoma, measure (all seen on axial postcontrast arterial series):*1.2 x 0.8 cm in segment VII (image 32)*1.4 x 1.2cm in segment IVB (image 57)*1.5 x 1.3 cm in segment (image 60)*1.4 x 0.9 cm in segment V (image 66)*0.9 x 1.2 cm in segment V (image 69) Additional scattered arterially enhancing foci throughout the liver without definite washout or pseudocapsule are indeterminate. BILIARY: The gallbladder is distended and measures 6.2 cm in transverse diameter. The common bile duct is prominent and measures 1 cmin diameter without definite filling defect. No significant intrahepatic biliary ductal prominence.SPLEEN: No splenomegaly.PANCREAS: 0.5 cm fluid intensity structure in the pancreatic head. No solid masses or ductal dilatation. ADRENALS: No adrenal nodules.KIDNEYS /URETERS: No hydronephrosis or solid mass lesions. Subcentimeter right renal cyst. PERITONEUM/RETROPERITONEUM: Trace ascites.LYMPH NODES: Mildly prominent peripancreatic/periportal lymph nodes measure up to 1.3 cm, likely reactive.VESSELS: Portal system and hepatic veins are patent. Main portal vein measures 1.2 cm in diameter. Recanalizedumbilical vein. Small esophageal varices. Abdominal aorta is normal in caliber. GI TRACT: No distention or wall thickening. BONES AND SOFT TISSUES: Bones are unremarkable. Mild gynecomastia bilaterally. IMPRESSION:Cirrhosis with portal hypertension and trace ascites. 3.1 cm and 2.1 cm lesions in segment VIII, consistent with hepatocellular carcinoma. Five additional lesions in both lobes of the liver are also suspicious for hepatocellular carcinoma. Distended gallbladder and prominent common bile duct without definite filling defect. These findings may be correlated with liver function tests to exclude cholestasis. Subcentimeter fluid structure in the pancreatic head may represent the duct of Santorini or a sidebranch intraductal papillary mucinous neoplasm (IPMN). Signed: Tali Barragan MDReport Verified Date/Time: 03/14/2019 14:05:02 Reading Location: [address] Radiology Reading Room VARICELLA ZOSTER ANTIBODY, [id number] 12:59:00 Test Item Value Reference Range Comments VARICELLA ZOSTER IGG (AL) (BEAKER) (test vuyp=4811) 5.2 VARICELLA ZOSTER RESULT INTERPRETATIONS: <=0.8 Al Nonreactive: Presumed non-immune to VZV 0.9-1.0 Al Equivocal >=1.1 Al Reactive: Presumed immune to VZVRUBELLA ANTIBODY, [id number] 12:59:00 Test Item Value Reference Range Comments RUBELLA IGG QUANTITATION (BEAKER) (test fnwx=689) 41.0 IU/mL <8.0 Rubella IgG Result Interpretation: </=7.0 IU/mL Negative - Presumed non- immune 8.0 - 9.9 IU/mL Equivocal >=10.0 IU/mL Positive - Presumed immuneCYTOMEGALOVIRUS ANTIBODY, [id number] 12:59:00 Test Item Value Reference Range Comments CYTOMEGALOVIRUS, IGG (BEAKER) (test gazw=0111) Positive Negative, Equivocal CMV IgG Result Interpretation: </=0.8 Al Negative 0.9-1.0 Al Equivocal &gt ;/=1.1 Al PositiveCYTOMEGALOVIRUS ANTIBODY, [id number] 12:59:00 Test Item Value Reference Range Comments CYTOMEGALOVIRUS IGM ANTIBODY (BEAKER) (test Negative Negative, Equivocal isfd=8668) CMV IgM Result Interpretation: </=0.8 Al Negative 0.9-1.0 Al Equivocal >/=1.1 Al PositiveEBV ANTIBODY, [id number] 12:59:00 Test Item Value Reference Range Comments RACHEL LEHMAN VIRAL CAPSID ANTIGEN IGG (BEAKER) Positive Negative, Equivocal (test xvly=0726) Rachel Lehman Viral Capsid Antigen IgG Result Interpretation: </=0.8 Al Negative 0.9-1.0 Al Equivocal >/=1.1 Al PositiveEBV ANTIBODY, [id number] 12:59:00 Test Item Value Reference Range Comments RACHEL LEHMAN VIRAL CAPSID ANTIGEN IGM (BEAKER) Negative Negative, Equivocal (test mrcw=7834) Rachel Lehman Viral Capsid Antigen IgM Result Interpretation: </=0.8 Al Negative 0.9-1.0 Al Equivocal >/=1.1 Al PositiveBLOOD GAS, [id number] 12:42:00 Test Item Value Reference Range Comments PH ARTERIAL (BEAKER) (test yhvq=059) 7.36 7.35-7.45 PCO2 ARTERIAL (BEAKER) (test vezw=092) 33 mmHg 35-45 PO2 ARTERIAL (BEAKER) (test lhfy=786) 121 mmHg 80-90 O2 SATURATION ARTERIAL (BEAKER) (test ncwo=098) 98.2 % 96.0-97.0 HCO3 ARTERIAL (BEAKER) (test bpwo=336) 18 mmol/L 21-29 BASE EXCESS ARTERIAL (BEAKER) (test agrf=470) -6.2 mmol/L -2.0-3.0 PATIENT TEMPERATURE (BEAKER) (test ktgh=6786) 37.9 C FIO2 (BEAKER) (test yurp=0908) 36.0 % CRYPTOCOCCAL [id number] 11:57:00 Test Item Value Reference Range Comments CRYPTOCOCCAL ANTIGEN, SERUM (BEAKER) (test Negative Negative, Interference pijd=3359) RAD, MANDIBLE, MIN 4 [id number] 11:38:00Referring: Dr. Yuniel Loza for Exam:->HCC,ETOH,CIRRHOSIS, PRE TRANSPLANT EVALUATIONFINAL REPORT TECHNIQUE: Frontal, axiolateral, and lateral views of the mandible. INDICATION: 44-year-old man for liver transplant evaluation. COMPARISON: None. FINDINGS:No acute fractures or dislocations.No definite dental caries or periodontal disease. IMPRESSION:No acute osseous abnormalities or definite dental/periodontal disease. Signed: Tali Barragan MDReport Verified Date/Time: 03/14/2019 11:38:59 Reading Location: [address] Radiology Reading Room [id number] 11:22:00 Test Item Value Reference Range Comments RPR SCREEN (BEAKER) (test xrod=252) Nonreactive Nonreactive HEMOGLOBIN [id number] 11:21:00 Test Item Value Reference Range Comments HEMOGLOBIN A1C (BEAKER) (test yvbl=956) < % 4.3-6.1 VITAMIN D, [id number] 11:14:00 Test Item Value Reference Range Comments VITAMIN D 25-OH (BEAKER) (test clpr=7602) 8.1 ng/mL 6.6-49.9 Effective 02/01/2017: Reference Range ChangeNew: 6.6-49.9 ng/mL Previous: 13.0 -47.8 ng/mLRecommended Vitamin D Target Range: 30.0-40.0 ng/mLHEPATITIS B SURFACE [id number] 10:24:00 Test Item Value Reference Range Comments HEPATITIS B SURFACE ANTIBODY (BEAKER) (test < mIU/mL <8.0 ngec=531) [id number] 10:01:00 Test Item Value Reference Range Comments PROSTATE SPECIFIC ANTIGEN (BEAKER) (test copc=264) 1.9 ng/mL 0.0-4.0 HEPATITIS B SURFACE [id number] 10:01:00 Test Item Value Reference Range Comments HEPATITIS B SURFACE ANTIGEN (2) (BEAKER) (test Nonreactive Nonreactive fdxl=2792) HEPATITIS C [id number] 10:01:00 Test Item Value Reference Range Comments HEPATITIS C ANTIBODY (BEAKER) (test ymsp=204) Nonreactive Nonreactive HIV-1 ANTIGEN WITH HIV-1/2 [id number] 10:01:00 Test Item Value Reference Range Comments HIV-1 ANTIGEN WITH HIV 1\T\2 ANTIBODY (2) Nonreactive Nonreactive (BEAKER) (test gcrd=5711) [id number] 09:59:00 Test Item Value Reference Range Comments T4 TOTAL (BEAKER) (test cmez=604) 3.5 ug/dL 4.9-11.7 [id number] 09:59:00 Test Item Value Reference Range Comments THYROID STIMULATING HORMONE (BEAKER) (test 2.71 uIU/mL 0.35-4.94 ofwx=771) CARCINOEMBRYONIC ANTIGEN (CEA)2019-03-14 09:59:00 Test Item Value Reference Range Comments CARCINOEMBRYONIC ANTIGEN (BEAKER) (test phya=442) 12.0 ng/mL 0.0-5.0 HEPATITIS B CORE ANTIBODY, [id number] 09:59:00 Test Item Value Reference Range Comments HEPATITIS B CORE IGM ANTIBODY (BEAKER) (test Nonreactive Nonreactive zyrl=817) HEPATITIS A ANTIBODY, [id number] 09:59:00 Test Item Value Reference Range Comments HEPATITIS A IGM ANTIBODY (BEAKER) (test Nonreactive Nonreactive ioqn=582) HEPATITIS B CORE ANTIBODY, [id number] 09:59:00 Test Item Value Reference Range Comments HEPATITIS B CORE TOTAL ANTIBODY (BEAKER) (test Nonreactive Nonreactive sxgt=338) [id number] 09:45:00 Test Item Value Reference Range Comments MAGNESIUM (BEAKER) (test iohj=510) 1.7 mg/dL 1.6-2.6 [id number] 09:45:00 Test Item Value Reference Range Comments PHOSPHORUS (BEAKER) (test snnl=581) 3.8 mg/dL 2.3-4.7 URIC [id number] 09:45:00 Test Item Value Reference Range Comments URIC ACID (BEAKER) (test mxwo=175) 5.4 mg/dL 2.6-7.2 Specimen slightly ictericCOMPREHENSIVE METABOLIC [id number] 09:45:00 Test Item Value Reference Range Comments TOTAL PROTEIN (BEAKER) 7.0 gm/dL 6.0-8.3 (test qmck=242) ALBUMIN (BEAKER) (test 2.3 g/dL 3.5-5.0 quwy=1217) ALKALINE PHOSPHATASE 271 U/L 40-150 (BEAKER) (test bjna=229) BILIRUBIN TOTAL (BEAKER) 4.3 mg/dL 0.2-1.2 (test epwx=964) SODIUM (BEAKER) (test 136 meq/L 136-145 rufu=223) POTASSIUM (BEAKER) (test 3.7 meq/L 3.5-5.1 aupk=630) CHLORIDE (BEAKER) (test 110 meq/L 98-107 poxl=629) CO2 (BEAKER) (test 22 meq/L 22-29 ijkh=381) BLOOD UREA NITROGEN 11 mg/dL 7-21 (BEAKER) (test adgm=662) CREATININE (BEAKER) (test 0.80 mg/dL 0.57-1.25 wlxu=046) GLUCOSE RANDOM (BEAKER) 119 mg/dL 70-105 (test gqvk=332) CALCIUM (BEAKER) (test 8.3 mg/dL 8.4-10.2 nspw=455) AST (SGOT) (BEAKER) (test 78 U/L 5-34 jvet=044) ALT (SGPT) (BEAKER) (test 55 U/L 6-55 anlt=998) EGFR (BEAKER) (test 105 mL/min/1.73 sq ESTIMATED GFR IS NOT pkvc=9353) m ACCURATE CREATININE CLEARANCE IN PREDICTING GLOMERULAR FILTRATION RATE. ESTIMATED GFR IS NOT APPLICABLE FOR DIALYSIS PATIENTS. Specimen slightly ictericLIPID [id number] 09:45:00 Test Item Value Reference Range Comments TRIGLYCERIDES (BEAKER) (test dweu=249) 54 mg/dL CHOLESTEROL (BEAKER) (test wpxy=149) 67 mg/dL HDL CHOLESTEROL (BEAKER) (test uyst=926) 9 mg/dL LDL CHOLESTEROL CALCULATED (BEAKER) (test cugr=133) 47 mg/dL Triglyceride Reference Range: Low Risk <150 Borderline 150- 199 High Risk 200-499 Very High Risk >=500Cholesterol Reference Range: Low Risk <200 Borderline 200-239 High Risk > 240HDL Cholesterol Reference Range: Low Risk >=60 High Risk <40LDL Cholesterol Reference Range: Optimal <100 Near Optimal 100-129 Borderline 130-159 High 160-189 Very High >=190 Specimen slightly ictericBILIRUBIN, [id number] 09:45:00 Test Item Value Reference Range Comments BILIRUBIN DIRECT (BEAKER) (test vldv=817) 2.8 mg/dL 0.1-0.5 GAMMA GLUTAMYL TRANSFERASE (GGT)2019-03-14 09:45:00 Test Item Value Reference Range Comments GAMMA GLUTAMYL TRANSFERASE (BEAKER) (test cuvy=760) 46 U/L 9-64 Specimen slightly [id number] 09:39:00 Test Item Value Reference Range Comments TRANSFERRIN (BEAKER) (test gcjp=498) 115 mg/dL 174-382 Specimen slightly ictericCALCIUM, [id number] 09:37:00 Test Item Value Reference Range Comments CALCIUM IONIZED (BEAKER) (test wypx=260) 1.23 mmol/L 1.12-1.27 PH, BLOOD (BEAKER) (test avce=5477) 7.30 [id number] 09:36:00 Test Item Value Reference Range Comments ETHANOL (BEAKER) (test wbqu=296) < mg/dL <=10 PROTHROMBIN [id number] 09:28:00 Test Item Value Reference Range Comments PROTIME (BEAKER) (test tvxv=533) 25.1 seconds 11.9-14.2 INR (BEAKER) (test phnj=895) 2.4 <=5.9 Effective 09/19/2018: PT Reference Range ChangeNew: 11.9-14.2 Previous: 11.7- 14.7RECOMMENDED COUMADIN/WARFARIN INR THERAPY RANGESSTANDARD DOSE: 2.0-3.0 Includes: PROPHYLAXIS for venous thrombosis, systemic embolization; TREATMENT for venous thrombosis and/or pulmonary embolus.HIGH RISK: Target INR is2.5-3.5 for patients wiht mechanical heart valves.[id number] 09:28:00 Test Item Value Reference Range Comments FIBRINOGEN LEVEL (BEAKER) (test frlf=731) 166 mg/dl 225-434 [id number] 09:28:00 Test Item Value Reference Range Comments PARTIAL THROMBOPLASTIN TIME (BEAKER) (test 55.8 seconds 22.5-36.0 aizt=756) URINALYSIS W/ [id number] 09:22:00 Test Item Value Reference Range Comments COLOR (BEAKER) (test gixw=078) Yellow CLARITY (BEAKER) (test ljrk=538) Clear SPECIFIC GRAVITY UA (BEAKER) (test nqet=514) 1.010 1.001-1.035 PH UA (BEAKER) (test cjpa=242) 7.0 5.0-8.0 PROTEIN UA (BEAKER) (test ehur=623) Negative Negative GLUCOSE UA (BEAKER) (test sowp=742) Negative Negative KETONES UA (BEAKER) (test fywv=957) Negative Negative BILIRUBIN UA (BEAKER) (test uviz=241) Negative Negative BLOOD UA (BEAKER) (test evvy=834) Negative Negative NITRITE UA (BEAKER) (test lmqj=866) Negative Negative LEUKOCYTE ESTERASE UA (BEAKER) (test elfa=057) Negative Negative UROBILINOGEN UA (BEAKER) (test xmmn=568) 0.2 mg/dL 0.2-1.0 RBC UA (BEAKER) (test ckpz=769) 0 /HPF WBC UA (BEAKER) (test jgpt=501) 0 /HPF SOURCE(BEAKER) (test eqde=0942) CBC W/PLT COUNT & AUTO [id number] 09:18:00 Test Item Value Reference Range Comments WHITE BLOOD CELL COUNT (BEAKER) (test yjqh=269) 7.5 K/ L 3.5-10.5 RED BLOOD CELL COUNT (BEAKER) (test xyvp=140) 2.51 M/ L 4.63-6.08 HEMOGLOBIN (BEAKER) (test ttml=798) 8.7 GM/DL 13.7-17.5 HEMATOCRIT (BEAKER) (test lpkb=362) 25.1 % 40.1-51.0 MEAN CORPUSCULAR VOLUME (BEAKER) (test ottl=776) 100.0 fL 79.0-92.2 MEAN CORPUSCULAR HEMOGLOBIN (BEAKER) (test 34.7 pg 25.7-32.2 smvt=240) MEAN CORPUSCULAR HEMOGLOBIN CONC (BEAKER) (test 34.7 GM/DL 32.3-36.5 lvtg=543) RED CELL DISTRIBUTION WIDTH (BEAKER) (test 19.6 % 11.6-14.4 gnvw=149) PLATELET COUNT (BEAKER) (test qory=493) 116 K/CU MM 150-450 MEAN PLATELET VOLUME (BEAKER) (test nius=099) 10.7 fL 9.4-12.4 NUCLEATED RED BLOOD CELLS (BEAKER) (test 0 /100 WBC 0-0 qyes=696) NEUTROPHILS RELATIVE PERCENT (BEAKER) (test 60 % zmpj=849) LYMPHOCYTES RELATIVE PERCENT (BEAKER) (test 21 % jent=743) MONOCYTES RELATIVE PERCENT (BEAKER) (test 15 % iuim=292) EOSINOPHILS RELATIVE PERCENT (BEAKER) (test 3 % xuud=695) BASOPHILS RELATIVE PERCENT (BEAKER) (test 1 % boxx=159) NEUTROPHILS ABSOLUTE COUNT (BEAKER) (test 4.51 K/ L 1.78-5.38 nohr=604) LYMPHOCYTES ABSOLUTE COUNT (BEAKER) (test 1.57 K/ L 1.32-3.57 eqtm=530) MONOCYTES ABSOLUTE COUNT (BEAKER) (test 1.14 K/ L 0.30-0.82 olgq=241) EOSINOPHILS ABSOLUTE COUNT (BEAKER) (test 0.24 K/ L 0.04-0.54 ayqx=352) BASOPHILS ABSOLUTE COUNT (BEAKER) (test 0.04 K/ L 0.01-0.08 chdi=484) IMMATURE GRANULOCYTES-RELATIVE PERCENT (BEAKER) 0 % 0-1 (test tpam=2150) MYOCARD IMAGING, MULTI, PHARM, [id number] 19:05:00Referring: Dr. Brice PatelFINAL REPORT PROCEDURE: MYOCARDIAL PERFUSION SPECT IMAGING (Rest/Stress)CPT CODE: 46595 INDICATION: Evaluation for coronary artery disease prior to liver transplant CARDIOVASCULAR PROFILE:CAD History: NoneRisk Factors: Hypertension, cirrhosis.Medications: Lasix, spironolactone. STRESS PROTOCOL:Pharmacologic stress was achieved with a 10-second intravenous infusion of regadenoson 0.4 mg. IMAGING PROTOCOL:9.7 mCi of Tc-99m sestamibi was injected intravenously at rest, and SPECT images were obtained. Then, 30.1 mCi of Tc-99m sestamibi was injected intravenously at peak stress, and SPECT images were obtained. REST FINDINGS:HR: 56 /minBP: 125/65 mmHgPrelim. EKG: Normal sinus rhythm.Perfusion: Normal.LV Volume: Normal.RV Volume: Normal. STRESS FINDINGS:HR: 75 /min (42% of MPHR)BP: 129/67 mmHgPrelim. EKG: No ischemic changes.Symptoms: None (treatment not required).Perfusion: Normal.Wall Motion: Normal (LVEF 58%).LV Volume: Unchanged from rest. IMPRESSION :1. Normal study.2. Normal myocardial perfusion. 3. Normal resting LV function.4. Normal extracardiac tracer distribution. Signed: Jackie Whitmore MDReport Verified Date/Time: 03/13/2019 19:05:20 Reading Location: [address] 07:05 PMANTI-NUCLEAR ANTIBODY ([place])2019-02-18 10:03:00 Test Item Value Reference Range Comments ANTI-NUCLEAR ANTIBODY ([place]) (BEAKER) (test Positive Negative nhkp=203) Test performed by IFA method.[place] TITER AND [id number] 10:03:00 Test Item Value Reference Range Comments [place] TITER (BEAKER) (test abit=2724) >=:2560 [place] PATTERN (BEAKER) (test oprw=8415) Speckled [id number] 20:03:00 Test Item Value Reference Range Comments FERRITIN (BEAKER) (test vhsq=946) 2900 ng/mL 5-275 ALPHA FETOPROTEIN (AFP), TUMOR [id number] 18:51:00 Test Item Value Reference Range Comments ALPHA-FETOPROTEIN (BEAKER) (test uunh=3112) 14.5 ng/mL <10.0 BILIRUBIN, [id number] 18:34:00 Test Item Value Reference Range Comments BILIRUBIN DIRECT (BEAKER) (test tzuq=966) 3.7 mg/dL 0.1-0.5 COMPREHENSIVE METABOLIC [id number] 18:34:00 Test Item Value Reference Range Comments TOTAL PROTEIN (BEAKER) 7.8 gm/dL 6.0-8.3 (test beiz=991) ALBUMIN (BEAKER) (test 2.5 g/dL 3.5-5.0 jenf=7310) ALKALINE PHOSPHATASE 292 U/L 40-150 (BEAKER) (test ykaw=053) BILIRUBIN TOTAL (BEAKER) 5.5 mg/dL 0.2-1.2 (test auiu=624) SODIUM (BEAKER) (test 121 meq/L 136-145 oraq=794) POTASSIUM (BEAKER) (test 4.4 meq/L 3.5-5.1 vzrm=895) CHLORIDE (BEAKER) (test 95 meq/L 98-107 vhcu=696) CO2 (BEAKER) (test 21 meq/L 22-29 ahwl=803) BLOOD UREA NITROGEN 26 mg/dL 7-21 (BEAKER) (test flhd=099) CREATININE (BEAKER) (test 1.09 mg/dL 0.57-1.25 bfkt=657) GLUCOSE RANDOM (BEAKER) 114 mg/dL 70-105 (test kuqk=608) CALCIUM (BEAKER) (test 9.0 mg/dL 8.4-10.2 xjrb=400) AST (SGOT) (BEAKER) (test 161 U/L 5-34 hgtn=613) ALT (SGPT) (BEAKER) (test 129 U/L 6-55 vfhl=558) EGFR (BEAKER) (test 74 mL/min/1.73 sq m ESTIMATED GFR IS NOT bmth=5465) ACCURATE CREATININE CLEARANCE IN PREDICTING GLOMERULAR FILTRATION RATE. ESTIMATED GFR IS NOT APPLICABLE FOR DIALYSIS PATIENTS. Specimen moderately ictericGAMMA GLUTAMYL TRANSFERASE (GGT)2019-02-14 18:34:00 Test Item Value Reference Range Comments GAMMA GLUTAMYL TRANSFERASE (BEAKER) (test yghn=191) 48 U/L 9-64 Specimen moderately ictericIRON, TIBC, % SAT. (WITHOUT FERRITIN)2019-02-14 18:26 :00 Test Item Value Reference Range Comments IRON (BEAKER) (test yoes=440) 137.0 ug/dL 40.0-160.0 TOTAL IRON BINDING CAPACITY (BEAKER) (test 153 ug/dL 250-450 jysu=369) IRON % SATURATION (2) (BEAKER) (test spgr=1983) 90 % 20-55 [id number]-8-[id number] 18:26:00 Test Item Value Reference Range Comments ALPHA-1 ANTITRYPSIN (BEAKER) (test kllk=037) 165.60 mg/dL 90.00-200.00 PROTHROMBIN TIME/[id number] 17:50:00 Test Item Value Reference Range Comments PROTIME (BEAKER) (test vrci=920) 26.3 seconds 11.9-14.2 INR (BEAKER) (test vrgq=680) 2.6 <=5.9 Effective 09/19/2018: PT Reference Range ChangeNew: 11.9-14.2 Previous: 11.7- 14.7RECOMMENDED COUMADIN/WARFARIN INR THERAPY RANGESSTANDARD DOSE: 2.0-3.0 Includes: PROPHYLAXIS for venous thrombosis, systemic embolization; TREATMENT for venous thrombosis and/or pulmonary embolus.HIGH RISK: Target INR is2.5-3.5 for patients wiht mechanical heart valves.CBC W/PLT COUNT & AUTO [id number] 17:44:00 Test Item Value Reference Range Comments WHITE BLOOD CELL COUNT (BEAKER) (test ckai=672) 11.1 K/ L 3.5-10.5 RED BLOOD CELL COUNT (BEAKER) (test xtfw=981) 2.46 M/ L 4.63-6.08 HEMOGLOBIN (BEAKER) (test ygls=201) 8.6 GM/DL 13.7-17.5 HEMATOCRIT (BEAKER) (test bzfx=562) 23.4 % 40.1-51.0 MEAN CORPUSCULAR VOLUME (BEAKER) (test wcmr=723) 95.1 fL 79.0-92.2 MEAN CORPUSCULAR HEMOGLOBIN (BEAKER) (test 35.0 pg 25.7-32.2 uooj=095) MEAN CORPUSCULAR HEMOGLOBIN CONC (BEAKER) (test 36.8 GM/DL 32.3-36.5 qwsj=031) RED CELL DISTRIBUTION WIDTH (BEAKER) (test 16.1 % 11.6-14.4 apub=086) PLATELET COUNT (BEAKER) (test wihk=674) 102 K/CU MM 150-450 MEAN PLATELET VOLUME (BEAKER) (test svqk=443) 10.0 fL 9.4-12.4 NUCLEATED RED BLOOD CELLS (BEAKER) (test 0 /100 WBC 0-0 antt=672) NEUTROPHILS RELATIVE PERCENT (BEAKER) (test 72 % afqe=366) LYMPHOCYTES RELATIVE PERCENT (BEAKER) (test 15 % ooxb=449) MONOCYTES RELATIVE PERCENT (BEAKER) (test 11 % ojbr=539) EOSINOPHILS RELATIVE PERCENT (BEAKER) (test 1 % hqvi=324) BASOPHILS RELATIVE PERCENT (BEAKER) (test 1 % cdfb=815) NEUTROPHILS ABSOLUTE COUNT (BEAKER) (test 8.02 K/ L 1.78-5.38 jxuy=071) LYMPHOCYTES ABSOLUTE COUNT (BEAKER) (test 1.67 K/ L 1.32-3.57 visu=979) MONOCYTES ABSOLUTE COUNT (BEAKER) (test 1.18 K/ L 0.30-0.82 zvxg=625) EOSINOPHILS ABSOLUTE COUNT (BEAKER) (test 0.15 K/ L 0.04-0.54 kbpi=422) BASOPHILS ABSOLUTE COUNT (BEAKER) (test 0.05 K/ L 0.01-0.08 xtcc=957) IMMATURE GRANULOCYTES-RELATIVE PERCENT (BEAKER) 0 % 0-1 (test yqgf=[id number])
[2019-05-18] MEDS ORDERED: MORPHINE 4 MG/ML SYR ONE (05:52)
[2019-05-18] MEDS ORDERED: ONDANSETRON 4 MG/2 ML VIAL ONE (05:52)
[2019-05-18] MEDS ORDERED: Magnesium Sulfate 2gm IVPB 2 G/50 ML BAG IV ONE (05:52)
[2019-05-18 06:01] LABS: Protime INR 2.46
[2019-05-18 06:09] LABS: Absolute Lymphocytes (CBC) 1.6 K/uL (0.7-4.9); Basophils % 0.8 % (0-1.3); Hematocrit 25.4 % (39.6-49.0); Lymphocytes % 23.8 % (15.3-44.8); MPV 8.7 fL (7.6-11.3); RBC Red Blood Cell Count 2.41 M/uL (4.33-5.43)
[2019-05-18] MEDS ORDERED: THIAMINE 200 MG/2 ML INJ ONE (06:14)
[2019-05-18] MEDS ORDERED: FOLIC ACID 5 MG/ML VIAL ONE (06:16)
[2019-05-18] MEDS ORDERED: NA CHLORIDE 0.9% 100 ML IV ONE (06:17)
[2019-05-18 06:24] LABS: ALT/SGPT 60 U/L (12-78); AST/SGOT 53 U/L (15-37); Alkaline Phosphatase 207 U/L (45-117); BUN Blood Urea Nitrogen 13 mg/dL (7-18); Bicarbonate 22 mmol/L (21-32); Bilirubin Direct 2.1 mg/dL (0-0.2); Bilirubin Total 3.6 mg/dL (0.2-1.0); Glucose Level 175 mg/dL (74-106); Lipase 117 U/L (73-393); Magnesium 1.5 mg/dL (1.8-2.4); NT PRO-BNP 80 pg/mL (<125); Potassium 3.7 mmol/L (3.5-5.1); Protein, Total 6.1 g/dL (6.4-8.2); Sodium Level 143 mmol/L (136-145); Troponin (Emerg Dept Use Only) 0.03 ng/mL (0.0-0.045)
[2019-05-18 06:33] LABS: Anisocytosis 1+; Blood Morphology Comment NOTED (NOT SEEN); Macrocytosis 1+; Platelet Estimate DECR; Urine White Blood Cell Casts OK
[2019-05-18] MEDS ORDERED: HYDROMORPHONE HCL 1 MG/ML INJ ONE ×2 (06:33→07:55)
--- NOTE | 2019-05-18 07:09 | EDPHYS ---
Physician Documentation [facility] Name: Stuart Glass Age: 44 yrs Sex: Male : 1975 Arrival Date: 05/18/2019 Time: 05:15 Bed 5 Private MD: ED Physician Siva Serra HPI: 05/18 05:36 This 44 yrs old Male presents to ER via Wheelchair with complaints of Foot allie Pain - Cramping. 05:36 The patient presents with decreased range of motion, pain, tenderness. The complaints allie affect the right foot and left foot. Context: The problem was sustained at an unknown location. Onset: The symptoms/episode began/occurred 2 day(s) ago. Modifying factors: The symptoms are alleviated by elevation of extremity, sitting, the symptoms are aggravated by weight bearing, movement. Associated signs and symptoms: Pertinent positives:. Severity of symptoms: At their worst the symptoms were moderate, severe, in the emergency department the symptoms are unchanged. The patient has experienced similar episodes in the past, multiple times. Historical: - PMHx: 05:27 Cirrhosis; tumors on liver; iw - Immunization history:: Adult Immunizations unknown. - Coronavirus screen:: The patient has NOT traveled to [place], [place], or [place] in the past 14 days. The patient has NOT had contact with known/suspected case of Coronavirus? Proceed with normal triage procedures. - Social history:: Smoking status: Patient denies any tobacco usage or history of. - Ebola Screening: : Patient negative for fever greater than or equal to 101.5 degrees Fahrenheit, and additional compatible Ebola Virus Disease symptoms Patient denies exposure to infectious person Patient denies travel to an Ebola-affected area in the 21 days before illness onset No symptoms or risks identified at this time. ROS: 05:36 Constitutional: Negative for fever, chills, and weight loss, Eyes: Negative for injury, allie pain, redness, and discharge, ENT: Negative for injury, pain, and discharge, Neck: Negative for injury, pain, and swelling, Cardiovascular: Negative for chest pain, palpitations, and edema, Respiratory: Negative for shortness of breath, cough, wheezing, and pleuritic chest pain, Abdomen/GI: Negative for abdominal pain, nausea, vomiting, diarrhea, and constipation, Back: Negative for injury and pain, : Negative for injury, bleeding, discharge, and swelling, Skin: Negative for injury, rash, and discoloration, Neuro: Negative for headache, weakness, numbness, tingling, and seizure, Psych: Negative for depression, anxiety, suicide ideation, homicidal ideation, and hallucinations, Allergy/Immunology: Negative for hives, rash, and allergies, Endocrine: Negative for neck swelling, polydipsia, polyuria, polyphagia, and marked weight changes. 05:36 MS/extremity: Positive for injury or acute deformity, pain, tenderness, of the right foot and left foot. Exam: 05:36 Constitutional: This is a well developed, well nourished patient who is awake, alert, allie and in no acute distress. Head/Face: Normocephalic, atraumatic. ENT: Nares patent. No nasal discharge, no septal abnormalities noted. Tympanic membranes are normal and external auditory canals are clear. Oropharynx with no redness, swelling, or masses, exudates, or evidence of obstruction, uvula midline. Mucous membranes moist. Neck: Trachea midline, no thyromegaly or masses palpated, and no cervical lymphadenopathy. Supple, full range of motion without nuchal rigidity, or vertebral point tenderness. No Meningismus. Chest/axilla: Normal chest wall appearance and motion. Nontender with no deformity. No lesions are appreciated. Cardiovascular: Regular rate and rhythm with a normal S1 and S2. No gallops, murmurs, or rubs. Normal PMI, no JVD. No pulse deficits. Respiratory: Lungs have equal breath sounds bilaterally, clear to auscultation and percussion. No rales, rhonchi or wheezes noted. No increased work of breathing, no retractions or nasal flaring. Back: No spinal tenderness. No costovertebral tenderness. Full range of motion. Male : Normal genitalia with no discharge or lesions. Skin: Warm, dry with normal turgor. Normal color with no rashes, no lesions, and no evidence of cellulitis. Neuro: Awake and alert, GCS 15, oriented to person, place, time, and situation. Cranial nerves II-XII grossly intact. Motor strength 5/5 in all extremities. Sensory grossly intact. Cerebellar exam normal. Normal gait. Psych: Awake, alert, with orientation to person, place and time. Behavior, mood, and affect are within normal limits. 05:36 Eyes: Pupils: equal, round, and reactive to light and accomodation, Extraocular movements: intact throughout, Conjunctiva: no acute changes, Corneas: are normal, Sclera: icterus, is present, Anterior chamber: no acute changes, Lids and lashes: appear normal, no acute changes, Nystagmus: is not appreciated. Vital Signs: 05:27 BP 143 / 90; Pulse 84; Resp 16; Temp 98.9; Pulse Ox 100% on R/A; iw 06:56 BP 135 / 83; Pulse 82; Resp 20 S; Pulse Ox 99% on R/A; jd3 08:05 BP 130 / 82; Pulse 80; Resp 16; Pulse Ox 99% ; jl7 MDM: 05:21 Patient medically screened. [facility] 05:40 Data reviewed: vital signs, nurses notes, lab test result(s), EKG, radiologic studies, [facility] CT scan, plain films, ultrasound. 05/18 05:34 Order name: Basic Metabolic Panel [facility] 05/18 05:34 Order name: CBC with Diff [facility] 05/18 05:34 Order name: LFT's [facility] 05/18 05:34 Order name: Magnesium [facility] 05/18 05:34 Order name: NT PRO-BNP; Complete Time: 06:26 [facility] 05/18 05:34 Order name: PT-INR; Complete Time: 06:26 [facility] 05/18 05:34 Order name: Troponin (emerg Dept Use Only); Complete Time: 06:26 [facility] 05/18 05:34 Order name: Lipase; Complete Time: 06:26 [facility] 05/18 05:34 Order name: AMMONIA; Complete Time: 06:26 [facility] 05/18 05:35 Order name: Basic Metabolic Panel; Complete Time: 06:26 [facility] 05/18 05:35 Order name: CBC with Automated Diff; Complete Time: 07:02 [facility] 05/18 05:35 Order name: Liver (Hepatic) Function; Complete Time: 06:26 [facility] 05/18 05:35 Order name: Magnesium; Complete Time: 06:26 [facility] 05/18 05:34 Order name: XRAY Chest (1 view) [facility] 05/18 05:34 Order name: EKG; Complete Time: 05:36 [facility] 05/18 05:34 Order name: Cardiac monitoring; Complete Time: 05:46 [facility] 05/18 05:34 Order name: EKG - Nurse/Tech; Complete Time: 05:46 allie 05/18 05:34 Order name: IV Saline Lock; Complete Time: 05:46 allie 05/18 05:34 Order name: Labs collected and sent; Complete Time: 05:47 allie 05/18 05:34 Order name: O2 Per Protocol; Complete Time: 05:47 allie 05/18 06:34 Order name: CBC Smear Scan; Complete Time: 07:02 [facility] 05/18 05:34 Order name: O2 Sat Monitoring; Complete Time: 05:47 allie Administered Medications: 05:50 Drug: Zofran 4 mg Route: IVP; Site: PICC; vc 07:04 Follow up: Response: No adverse reaction vc 05:50 Drug: morphine 4 mg Route: IVP; Site: PICC; vc 07:04 Follow up: Response: No adverse reaction vc 06:23 Drug: foLIC Acid 1 mg Route: IVPB; Site: PICC; vc 07:32 Follow up: Response: No adverse reaction; IV Status: Completed infusion ph 06:38 Drug: Thiamine 100 mg Route: IV; Rate: bolus; Site: PICC; vc 07:32 Follow up: Response: No adverse reaction; IV Status: Completed infusion ph 06:38 Drug: Dilaudid 1 mg Route: IVP; Site: PICC; vc 07:03 Follow up: Response: No adverse reaction vc 06:50 Drug: Magnesium Sulfate 2 grams Route: IVPB; Infused Over: 2 hrs; Site: PICC; vc 08:02 Follow up: Response: No adverse reaction; IV Status: Completed infusion jl7 07:50 Drug: Pepcid 20 mg Route: IVP; Site: PICC; jl7 08:02 Follow up: Response: No adverse reaction jl7 07:52 Drug: Dilaudid 1 mg Route: IVP; Site: PICC; jl7 08:02 Follow up: Response: No adverse reaction; Pain is decreased jl7 Disposition: 05/18/19 07:07 Discharged to Home. 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 - Condition is Stable. - Discharge Instructions: Anemia, Nonspecific, Ascites, Hypomagnesemia, Musculoskeletal Pain, Alcoholic Liver Disease, [id number]. - Prescriptions for magnesium oxide - take 1 tablet by ORAL route 2 times per day; 60 tablet. Valium 2 mg Oral Tablet - take 1 tablet by ORAL route every 8 hours As needed; 20 tablet. Tramadol 50 mg Oral Tablet - take 1 tablet by ORAL route every 8 hours as needed; 24 tablet. gabapentin 300 mg Oral capsule - take 1 capsule by ORAL route 2 times per day; 60 capsule. - Medication Reconciliation Form, Thank You Letter, Antibiotic Education, Prescription Opioid Use form. - Follow up: Private Physician; When: 2 - 3 days; Reason: Recheck today's complaints, Continuance of care, Re-evaluation by your physician. Follow up: Yuliana Gyoal MD; When: 2 - 3 days; Reason: Recheck today's complaints, Re-evaluation by your physician. - Problem is new. - Symptoms have improved. Signatures: Dispatcher [employer] Siva Parikh MD MD cha Williams, Irene, RN RN Jessee Galdamez RN RN jl7 Daylin Brownlee RN RN vc Hall, Patricia RN ph Corrections: (The following items were deleted from the chart) 08:02 05:34 Urine Dipstick-Ancillary ordered. allie bolivar 08:07 07:07 05/18/2019 07:07 Discharged to Home. Impression: Pain in left foot; Pain in right jl7 foot; Alcoholic cirrhosis of liver with ascites - mild; Hypomagnesemia; Anemia, unspecified. Condition is Stable. Discharge Instructions: Ascites, Hypomagnesemia, Musculoskeletal Pain, Alcoholic Liver Disease, [id number], Anemia, Nonspecific. Prescriptions for magnesium oxide - take 1 tablet by ORAL route 2 times per day; 60 tablet, Valium 2 mg Oral Tablet - take 1 tablet by ORAL route every 8 hours As needed; 20 tablet, Tramadol 50 mg Oral Tablet - take 1 tablet by ORAL route every 8 hours as needed; 24 tablet, gabapentin 300 mg Oral capsule - take 1 capsule by ORAL route 2 times per day; 60 capsule. and Forms are Medication Reconciliation Form, Thank You Letter, Antibiotic Education, Prescription Opioid Use. Follow up: Private Physician; When: 2 - 3 days; Reason: Recheck today's complaints, Continuance of care, Re-evaluation by your physician. Follow up: Yuliana Goyal; When: 2 - 3 days; Reason: Recheck today's complaints, Re-evaluation by your physician. Problem is new. Symptoms have improved. allie
--- NOTE | 2019-05-18 07:09 | ER ---
Nurse's Notes [facility] Name: Stuart Glass Age: 44 yrs Sex: Male : 1975 Arrival Date: 05/18/2019 Time: 05:15 Bed 5 Private MD: Diagnosis: Pain in left foot;Pain in right foot;Alcoholic cirrhosis of liver with ascites-mild;Hypomagnesemia;Anemia, unspecified Presentation: 05/18 05:24 Presenting complaint: Patient states: salomon feet pain all day, feels like needles in his iw feet, also has cramping in his legs, hx of cirrhosis , was discharged from [facility] yesterday and was diagnosed with a blood infection, PICC line in place, is receiving Rocephin IV. Transition of care: patient was not received from another setting of care. Onset of symptoms was May 18, 2019. Risk Assessment: Do you want to hurt yourself or someone else? Patient reports no desire to harm self or others. Initial Sepsis Screen: Does the patient meet any 2 criteria? No. Patient's initial sepsis screen is negative. Does the patient have a suspected source of infection? No. Patient's initial sepsis screen is negative. Care prior to arrival: None. 05:24 Method Of Arrival: Wheelchair iw 05:24 Acuity: [place] 3 iw Historical: - PMHx: 05:27 Cirrhosis; tumors on liver; iw - Immunization history:: Adult Immunizations unknown. - Coronavirus screen:: The patient has NOT traveled to [place], [place], or [place] in the past 14 days. The patient has NOT had contact with known/suspected case of Coronavirus? Proceed with normal triage procedures. - Social history:: Smoking status: Patient denies any tobacco usage or history of. - Ebola Screening: : Patient negative for fever greater than or equal to 101.5 degrees Fahrenheit, and additional compatible Ebola Virus Disease symptoms Patient denies exposure to infectious person Patient denies travel to an Ebola-affected area in the 21 days before illness onset No symptoms or risks identified at this time. Screenin:48 Abuse screen: Denies threats or abuse. Nutritional screening: No deficits noted. jd3 Tuberculosis screening: No symptoms or risk factors identified. Fall Risk IV access (20 points). Ambulatory Aid- None/Bed Rest/Nurse Assist (0 pts). Gait- Normal/Bed Rest/Wheelchair (0 pts) Mental Status- Oriented to own ability (0 pts). Total Wilks Fall Scale indicates No Risk (0-24 pts). Assessment: 05:25 Reassessment: Provider at bedside. vc 06:00 General: Appears in no apparent distress. uncomfortable, ill, slender, Behavior is vc calm, cooperative, appropriate for age. Pain: Complains of pain in left foot and right foot. Neuro: Level of Consciousness is awake, alert, obeys commands, Oriented to person, place, time, situation, Speech is normal. Cardiovascular: Patient's skin is warm and dry. Respiratory: Respiratory effort is even, unlabored. GI: Abdomen is flat. : No signs and/or symptoms were reported regarding the genitourinary system. EENT: Sclera/Cornea jaundice. Derm: Skin is intact, is thin, Skin is dry. Musculoskeletal: Circulation, motion, and sensation intact. Range of motion: intact in all extremities. 06:55 Reassessment: Patient and/or family updated on plan of care and expected duration. Pain vc level reassessed. Patient is alert, oriented x 3, equal unlabored respirations, skin warm/dry/pink. 07:00 Reassessment: Pt will be discharged once medications are done infusing. jl7 07:13 Reassessment: Patient on antibiotic therapy at home for Klebsiella pneumonia. vc 07:50 Reassessment: Pt reports pain rated 9/10, VO from ERD to repeat pain medication. jl7 08:03 Reassessment: Pt unable to provide urine sample. jl7 Vital Signs: 05:27 BP 143 / 90; Pulse 84; Resp 16; Temp 98.9; Pulse Ox 100% on R/A; iw 06:56 BP 135 / 83; Pulse 82; Resp 20 S; Pulse Ox 99% on R/A; jd3 08:05 BP 130 / 82; Pulse 80; Resp 16; Pulse Ox 99% ; jl7 ED Course: 05:15 Patient arrived in ED. ds1 05:21 Siva Serra MD is Attending Physician. allie 05:27 Triage completed. iw 05:28 Arm band placed on. iw 05:33 Daylin Brownlee, JANEL is Primary Nurse. vc 05:47 Initial lab(s) drawn, by ED staff, sent to lab. EKG done, by ED staff, reviewed by brenden Serra MD. 05:48 Patient has correct armband on for positive identification. Bed in low position. Call brenden light in reach. Side rails up X 1. Adult w/ patient. stock preparation supervisor on. Pulse ox on. NIBP on. 05:54 Warm blanket given. jd3 06:50 XRAY Chest (1 view) In Process Unspecified. EDMS 07:07 Yuliana Goyal MD is Referral Physician. [facility] 08:05 No provider procedures requiring assistance completed. Patient did not have IV access jl7 during this emergency room visit. Administered Medications: 05:50 Drug: Zofran 4 mg Route: IVP; Site: PICC; vc 07:04 Follow up: Response: No adverse reaction vc 05:50 Drug: morphine 4 mg Route: IVP; Site: PICC; vc 07:04 Follow up: Response: No adverse reaction vc 06:23 Drug: foLIC Acid 1 mg Route: IVPB; Site: PICC; vc 07:32 Follow up: Response: No adverse reaction; IV Status: Completed infusion ph 06:38 Drug: Thiamine 100 mg Route: IV; Rate: bolus; Site: PICC; vc 07:32 Follow up: Response: No adverse reaction; IV Status: Completed infusion ph 06:38 Drug: Dilaudid 1 mg Route: IVP; Site: PICC; vc 07:03 Follow up: Response: No adverse reaction vc 06:50 Drug: Magnesium Sulfate 2 grams Route: IVPB; Infused Over: 2 hrs; Site: PICC; vc 08:02 Follow up: Response: No adverse reaction; IV Status: Completed infusion jl7 07:50 Drug: Pepcid 20 mg Route: IVP; Site: PICC; jl7 08:02 Follow up: Response: No adverse reaction jl7 07:52 Drug: Dilaudid 1 mg Route: IVP; Site: PICC; jl7 08:02 Follow up: Response: No adverse reaction; Pain is decreased jl7 Outcome: 07:07 Discharge ordered by . allie 08:05 Discharged to home via wheelchair, with family. jl7 08:05 Condition: stable 08:05 Discharge instructions given to patient, family, Instructed on discharge instructions, follow up and referral plans. medication usage, Demonstrated understanding of instructions, follow-up care, medications, Prescriptions given X 4. 08:07 Patient left the ED. jl7 Signatures: Dispatcher [employer] EDSiva Perez MD MD cha Sanford, Demi ds1 Ratna Freitas RN RN iw Hall, Patricia, RN RN ph Leal, Jahala, RN RN jl7 Alex Albert RN RN jd3 Daylin Brownlee RN RN vc
[2019-05-18] MEDS ORDERED: FAMOTIDINE 20 MG/2 ML VIAL IV ONE (07:49)
[2019-05-18 08:13] VITALS: TEMP 98.9
[2019-05-18 08:14] VITALS: O2SAT 99
[2019-05-18 08:15] VITALS: BP 130/82
--- NOTE | 2019-05-18 11:42 | RAD REPORT ---
EXAM DESCRIPTION: RAD - Chest Single View - 05/18/2019 6:52 am CLINICAL HISTORY: ABDOMINAL DISTENTION Chest pain. COMPARISON: No comparisons FINDINGS: Portable technique limits examination quality. The lungs are grossly clear. The heart is normal in size. No displaced fractures.Right PICC line has tip in the SVC. IMPRESSION: No acute intrathoracic process suspected.
--- NOTE | 2019-05-18 23:15 | EKG ---
Test Date: 2019-05-18 Test Time: 05:42:00 Telecommunication Lines Repairer: NAHUM MEASUREMENT RESULTS: Intervals: Rate: 79 SC: 134 QRSD: 74 QT: 470 QTc: 538 [place]: P: 43 SC: 134 QRS: 7 T: 5 INTERPRETIVE STATEMENTS: Normal sinus rhythm Anterior infarct, age undetermined Abnormal ECG No previous ECG available for comparison Electronically Signed On 05-18-19 23:14:52 DAIRY TESTER by Karan Julio
== END 2019-05-18 08:07 | disposition home or self-care (01) ==
LOC: ER 05:12
DX: M79.671 Pain in right foot (principal); M79.672 Pain in left foot; K70.31 Alcoholic cirrhosis of liver with ascites; E83.42 Hypomagnesemia; D64.9 Anemia, unspecified
CPT/HCPCS: 96365; 96367; 93005; 85025; 80048; 36415; 82140; 83735; 85610; 80076; 84484; 83690; 83880; 71045; 96375; 99284; J3411; J3475; J1170 ×2; J2405

== ENCOUNTER 2019-07-28 06:51 | Emergency (ER) | payer BC, OTHER ==
--- OUTSIDE RECORDS SUMMARY | 2019-07-28 07:01 | XMS REPORT | Summary of Care ---
:1975 Author Organization [facility] - Health Address [address] [place] [id number] Care Team Providers Name Role Phone Yuniel Dailey Patricia Primary Care Provider Mian Daileyeeskira Sauceda Primary Care Provider Encounter Details Date Type Department Care Team Description 05/22/2019 Orders Only [facility] Doctor Unassigned, No [address] [facility] [place] [address] [place] [id number] Allergies No Known Allergiesdocumented as of this encounter (statuses as of 06/04/2019) Medications Medication Sig Dispensed Refills Start Date End Date Status spironolactone 100 mg Take 1 tablet by 30 tablet 12 01/22/2019 Active tabletIndications: mouth daily. Chronic liver failure without hepatic coma Additional information Patient taking differently: 50 mg Oral BID, Reported on 04/30/2019 4:41 PM lactulose 10 gram/15 mL Take 30 mL by mouth 500 mL 12 01/22/2019 Active solutionIndications: Chronic 2 (two) times liver failure without hepatic daily. coma rifAXIMin (XIFAXAN) 550 mg Take 550 mg by 0 Active tablet mouth 2 (two) times daily. gabapentin ER 300 mg tablet, Take 300 mg by 0 Active extended release 24 hr mouth 2 (two) times daily as needed for Pain (scale 4-6). gwdhkqzj-finb-WU-calcium-mins 9 Take 1 tablet by 0 Active mg iron-400 mcg tablet mouth daily. zinc sulfate (ZINC-220 ORAL) Take by mouth. 0 Active HYDROXYZINE HCL ORAL Take 50 mg by mouth 0 Active every 6 (six) hours as needed for Other (anxiety). ergocalciferol, vitamin d2, Take 50,000 Units 0 Active (VITAMIN D2) 50,000 unit capsule by mouth weekly. escitalopram oxalate (LEXAPRO) Take 20 mg by mouth 0 Active 20 mg tablet daily. carisoprodol (SOMA) 350 mg Take 350 mg by 0 Active tablet mouth 4 (four) times daily as needed for Insomnia. folic acid 0.8 mg Cap Take 1 capsule by 0 Active mouth daily. sucralfate 100 mg/mL Take 10 mL by mouth 480 mL 0 05/02/2019 Active suspensionIndications: Acute as needed upper GI bleed (esophageal pain). cyclobenzaprine 5 mg Take 1 tablet by 15 tablet 0 05/10/2019 Active tabletIndications: Leg cramps, mouth 3 (three) Hypomagnesemia times daily. methocarbamol 500 mg Take 1 tablet by 18 tablet 0 05/12/2019 Active tabletIndications: Generalized mouth 3 (three) abdominal pain, Fever, times daily as unspecified fever cause needed for Pain (scale 1-3). furosemide 40 mg Take 1 tablet by 90 tablet 0 05/17/2019 Active tabletIndications: Common bile mouth daily. duct dilatation, SBP (spontaneous bacterial peritonitis) Magnesium 250 mg TabIndications: Take 1 tablet by 270 tablet 0 05/16/2019 Active Common bile duct dilatation, SBP mouth 3 (three) (spontaneous bacterial times daily. peritonitis) documented as of this encounter (statuses as of 06/04/2019) Active Problems Problem Noted Date Spontaneous bacterial peritonitis 05/12/2019 Liver cirrhosis, alcoholic 04/30/2019 UGIB (upper gastrointestinal bleed) 04/30/2019 Hypomagnesemia 04/30/2019 Anxiety 04/30/2019 Peripheral neuropathy 04/30/2019 Coagulopathy 04/30/2019 Liver transplant candidate 11/27/2018 Chronic liver failure without hepatic coma 11/27/2018 Liver mass 11/27/2018 Lack of follow-up after hospitalization 11/27/2018 Lumbar herniated disc 11/27/2018 S/P right knee arthroscopy 11/27/2018 Chronic pain of right knee 11/27/2018 E44.0 Moderate protein calorie malnutrition 11/19/2018 Obesity (BMI 30-39.9) 11/16/2018 Jaundice 11/15/2018 documented as of this encounter (statuses as of 06/04/2019) Immunizations Name Administration Dates Next Due Influenza [...] Comments DTaP,Tdap,and Td Vaccines (1 - Tdap) 1986 INFLUENZA VACCINE (#1) 2018 01/22/2018 PNEUMOCOCCAL 0-64 YEARS COMBINED SERIES (1 of 1 - 01/16/2019 11/21/2018 PPSV23) documented as of this encounter Procedures Procedure Name Priority Date/Time Associated Diagnosis Comments REFERRAL- Routine 05/22/2019 12:01 AM SLEEVE FIXER REQUEST/RESPONSE documented in this encounter Results Not on filedocumented in this encounter Insurance Payer Benefit Plan / Subscriber ID Effective Dates Phone Address Type Group [facility] xxxxxxxxx [facility] Medicaid COMM PLAN - PLUS t MANAGED MEDICAID documented as of this encounter
--- OUTSIDE RECORDS SUMMARY | 2019-07-28 07:01 | XMS REPORT ---
:1975 Author Organization [employer] Care Team Providers Name Role Phone Asim Yuniel Provider Role Unavailable Allergies, Adverse Reactions, Alerts Substance Reaction Event Type N.K.D.A. Info Not Available Non Drug Allergy Problems Problem Type Condition Code Onset Dates Condition Status Assessment Insomnia, unspecified type G47.00 Active Assessment History of alcohol abuse F10.11 Active Assessment Seasonal allergies J30.2 Active Problem Erectile dysfunction, unspecified N52.9 Active erectile dysfunction type Assessment Generalized anxiety disorder F41.1 Active Problem Alcoholic cirrhosis of liver with K70.31 Active ascites Assessment Erectile dysfunction, unspecified N52.9 Active erectile dysfunction type Problem Seasonal allergies J30.2 Active Problem Other chronic pain G89.29 Active Problem Generalized anxiety disorder F41.1 Active Problem Insomnia, unspecified type G47.00 Active Problem Current moderate episode of major F32.1 Active depressive disorder without prior episode Assessment Low back pain M54.5 Active Assessment Secondary esophageal varices with I85.11 Active bleeding Problem Secondary esophageal varices with I85.11 Active bleeding Assessment Other chronic pain G89.29 Active Problem Peripheral edema R60.9 Active Problem Jaundice R17 Active Problem Hepatocellular carcinoma C22.0 Active Problem Vitamin D deficiency E55.9 Active Assessment Alcoholic cirrhosis of liver with K70.31 Active ascites Assessment Hepatocellular carcinoma C22.0 Active Assessment Current moderate episode of major F32.1 Active depressive disorder without prior episode Assessment Vitamin D deficiency E55.9 Active Problem Anxiety F41.9 Active Problem Liver lesion K76.9 Active Problem History of alcohol abuse F10.11 Active Medications Medication Code Code Instructions Start End Status Dosage System Date Date Lidoderm [facility] 57754716735 5 % Externally Active 1 patch Once a day remove after 12 hours Trazodone HCl ND 33612725987 50 MG Orally Jun 05, Active 1 tablet Once a day 2020 at bedtime as needed Omeprazole ND 15578427781 20 MG Orally Active 1 capsule Once a day 30 minutes before morning meal HydrOXYzine ND 38748195465 50 MG Orally Active 1 capsule Pamoate every 8 hrs PRN as needed Anxiety/Itching Vitamin D3 [facility] 99096087809 70421 UNIT Active 1 capsule Orally Once a week x 12 weeks Spironolactone [facility] 24264629585 50 MG Orally Active 1 tablet Twice a day Lasix [facility] 12151501947 20 MG Orally Active 1 tablet Once a day Lactulose [facility] 36158780853 20 GM/30ML Active 15 ml Orally Twice a day Xifaxan [facility] 14548135810 550 MG Orally Active 1 tablet Twice a day Multi Vitamin [facility] 32113335087 - Orally Once a Active 1 tablet day Carisoprodol [facility] 33831537270 350 MG Oral Active (schedule Four times a iv drug) day PRN take one -1 tablet(s) by mouth every six hours as needed for spasm. Escitalopram [facility] 17818979525 20 MG Orally Active 1 tablet Oxalate Once a day Folic Acid [facility] 77185832780 1 MG Orally Active 1 tablet Once a day Results No Known Results Summary Purpose eClinicalWorks Submission
--- OUTSIDE RECORDS SUMMARY | 2019-07-28 07:01 | XMS REPORT ---
:1975 [facility] Address [address] [place] [address] Care Team Providers Name Role Phone DINA [...] FINAL REPORT PATIENT ID: JOINT IMAGING, 17:24:00 [facility] [id number] PROCEDURE: BONE WHOLE BODY SCAN, WHOLE BODY CPT CODE: 54909 INDICATION: Hepatocellular carcinoma C22.0, preoperative evaluation for [...] MDReport Verified Date/Time: 03/19/2019 17:24:54 Reading Location: [address] Reading Room T3 2019-03-15 17:05:00 Test Item Value Reference Range Comments T3 TOTAL ([place]) (test shxc=943) 65 ng/dL 48-159 RAD, BONE DENSITY [id number] 15:06:00Referring: Dr. Yuniel Loza for Exam:->HCC,ETOH,CIRRHOSIS, PRE TRANSPLANT EVALUATIONFINAL REPORT Bone density study, 03/14/2019 Clinical History: Screening Bone mineral density measurementLumbar spine1.384 gm/op5Jwzpcfh neck1.092 gm/cm2 Standard deviation from young adult [...] Worthyeport Verified Date/Time: 03/15/2019 15:06:54 Reading Location: [address] Reading Room HEPATITIS A ANTIBODY, [id number] 14:48:00 Test Item Value Reference Range Comments HEPATITIS A IGG ANTIBODY ([place]) (test lpnd=9432) Reactive Nonreactive CT, CHEST, WITHOUT [id number] 14:22:00Referring: Dr. Yuniel OliveiraINAL REPORT TECHNIQUE: CT [...] IMPRESSION:No metastases in the chest. Signed: Tali Barragan MDReport Verified Date/Time: 03/14/2019 14:22:43 Reading Location: [address] Radiology Reading Room MR, ABDOMEN, [id number] 14:05:00Referring: Dr. Yuniel Fraga Abdominal VesselsFINAL REPORT [...] MDReport Verified Date/Time: 03/14/2019 14:05:02 Reading Location: [address] Radiology Reading Room VARICELLA ZOSTER ANTIBODY, [id number] 12:59:00 Test Item Value Reference Range Comments VARICELLA ZOSTER IGG (AL) (Akshay WellnessAKER) (test hjwr=3331) 5.2 VARICELLA ZOSTER RESULT INTERPRETATIONS: <=0.8 Al Nonreactive: Presumed non-immune to VZV 0.9-1.0 Al Equivocal >=1.1 Al Reactive: Presumed immune to VZVRUBELLA ANTIBODY, [id number] 12:59:00 Test Item Value Reference Range Comments RUBELLA IGG QUANTITATION (BEAKER) (test jvlw=778) 41.0 IU/mL <8.0 Rubella IgG Result Interpretation: </=7.0 IU/mL Negative - Presumed non- immune 8.0 - 9.9 IU/mL Equivocal >=10.0 IU/mL Positive - Presumed immuneCYTOMEGALOVIRUS ANTIBODY, [id number] 12:59:00 Test Item Value Reference Range Comments CYTOMEGALOVIRUS, IGG (BEAKER) (test svzg=2248) Positive Negative, Equivocal CMV IgG Result Interpretation: </=0.8 Al Negative 0.9-1.0 Al Equivocal &gt ;/=1.1 Al PositiveCYTOMEGALOVIRUS ANTIBODY, [id number] 12:59:00 Test Item Value Reference Range Comments CYTOMEGALOVIRUS IGM ANTIBODY (BEAKER) (test Negative Negative, Equivocal pnjr=9130) CMV IgM Result Interpretation: </=0.8 Al Negative 0.9-1.0 Al Equivocal >/=1.1 Al PositiveEBV ANTIBODY, [id number] 12:59:00 Test Item Value Reference Range Comments RACHEL LEHMAN VIRAL CAPSID ANTIGEN IGG (BEAKER) Positive Negative, Equivocal (test bkjz=5773) Rachel Lehman Viral Capsid Antigen IgG Result Interpretation: </=0.8 Al Negative 0.9-1.0 Al Equivocal >/=1.1 Al PositiveEBV ANTIBODY, [id number] 12:59:00 Test Item Value Reference Range Comments RACHEL LEHMAN VIRAL CAPSID ANTIGEN IGM (BEAKER) Negative Negative, Equivocal (test zxkp=1851) Rachel Lehman Viral Capsid Antigen IgM Result Interpretation: </=0.8 Al Negative 0.9-1.0 Al Equivocal >/=1.1 Al PositiveBLOOD GAS, [id number] 12:42:00 Test Item Value Reference Range Comments PH ARTERIAL (BEAKER) (test oeqf=888) 7.36 7.35-7.45 PCO2 ARTERIAL (BEAKER) (test aktt=195) 33 mmHg 35-45 PO2 ARTERIAL (BEAKER) (test tqpa=404) 121 mmHg 80-90 O2 SATURATION ARTERIAL (BEAKER) (test ktpi=010) 98.2 % 96.0-97.0 HCO3 ARTERIAL (BEAKER) (test char=850) 18 mmol/L 21-29 BASE EXCESS ARTERIAL (BEAKER) (test qwtw=623) -6.2 mmol/L -2.0-3.0 PATIENT TEMPERATURE (BEAKER) (test lqwq=4279) 37.9 C FIO2 (BEAKER) (test jusm=6045) 36.0 % CRYPTOCOCCAL [id number] 11:57:00 Test Item Value Reference Range Comments CRYPTOCOCCAL ANTIGEN, SERUM (BEAKER) (test Negative Negative, Interference zoff=6571) RAD, MANDIBLE, MIN 4 [id number] 11:38:00Referring: Dr. Yuniel Loza for Exam:->HCC,ETOH,CIRRHOSIS, PRE TRANSPLANT EVALUATIONFINAL REPORT TECHNIQUE: Frontal, axiolateral, and lateral views of the mandible. INDICATION: 44-year-old man for liver transplant evaluation. COMPARISON: None. FINDINGS:No acute fractures or dislocations.No definite dental caries or periodontal disease. IMPRESSION:No acute osseous abnormalities or definite dental/periodontal disease. Signed: Tali Barragan MDReport Verified Date/Time: 03/14/2019 11:38:59 Reading Location: [address] Radiology Reading Room [id number] 11:22:00 Test Item Value Reference Range Comments RPR SCREEN (BEAKER) (test kaaw=675) Nonreactive Nonreactive HEMOGLOBIN [id number] 11:21:00 Test Item Value Reference Range Comments HEMOGLOBIN A1C (BEAKER) (test ggwd=369) < % 4.3-6.1 VITAMIN D, [id number] 11:14:00 Test Item Value Reference Range Comments VITAMIN D 25-OH (BEAKER) (test czao=9385) 8.1 ng/mL 6.6-49.9 Effective 02/01/2017: Reference Range ChangeNew: 6.6-49.9 ng/mL Previous: 13.0 -47.8 ng/mLRecommended Vitamin D Target Range: 30.0-40.0 ng/mLHEPATITIS B SURFACE [id number] 10:24:00 Test Item Value Reference Range Comments HEPATITIS B SURFACE ANTIBODY (BEAKER) (test < mIU/mL <8.0 xrzi=939) [id number] 10:01:00 Test Item Value Reference Range Comments PROSTATE SPECIFIC ANTIGEN (BEAKER) (test elai=297) 1.9 ng/mL 0.0-4.0 HEPATITIS B SURFACE [id number] 10:01:00 Test Item Value Reference Range Comments HEPATITIS B SURFACE ANTIGEN (2) (BEAKER) (test Nonreactive Nonreactive rsob=0607) HEPATITIS C [id number] 10:01:00 Test Item Value Reference Range Comments HEPATITIS C ANTIBODY (BEAKER) (test tcvs=387) Nonreactive Nonreactive HIV-1 ANTIGEN WITH HIV-1/2 [id number] 10:01:00 Test Item Value Reference Range Comments HIV-1 ANTIGEN WITH HIV 1\T\2 ANTIBODY (2) Nonreactive Nonreactive (BEAKER) (test poey=5108) [id number] 09:59:00 Test Item Value Reference Range Comments T4 TOTAL (BEAKER) (test lmxo=074) 3.5 ug/dL 4.9-11.7 [id number] 09:59:00 Test Item Value Reference Range Comments THYROID STIMULATING HORMONE (BEAKER) (test 2.71 uIU/mL 0.35-4.94 qxug=648) CARCINOEMBRYONIC ANTIGEN (CEA)2019-03-14 09:59:00 Test Item Value Reference Range Comments CARCINOEMBRYONIC ANTIGEN (BEAKER) (test tewx=145) 12.0 ng/mL 0.0-5.0 HEPATITIS B CORE ANTIBODY, [id number] 09:59:00 Test Item Value Reference Range Comments HEPATITIS B CORE IGM ANTIBODY (BEAKER) (test Nonreactive Nonreactive jonl=153) HEPATITIS A ANTIBODY, [id number] 09:59:00 Test Item Value Reference Range Comments HEPATITIS A IGM ANTIBODY (BEAKER) (test Nonreactive Nonreactive fwdp=151) HEPATITIS B CORE ANTIBODY, [id number] 09:59:00 Test Item Value Reference Range Comments HEPATITIS B CORE TOTAL ANTIBODY (BEAKER) (test Nonreactive Nonreactive aiqx=503) [id number] 09:45:00 Test Item Value Reference Range Comments MAGNESIUM (BEAKER) (test zzlq=513) 1.7 mg/dL 1.6-2.6 [id number] 09:45:00 Test Item Value Reference Range Comments PHOSPHORUS (BEAKER) (test zqbg=344) 3.8 mg/dL 2.3-4.7 URIC [id number] 09:45:00 Test Item Value Reference Range Comments URIC ACID (BEAKER) (test cmkh=759) 5.4 mg/dL 2.6-7.2 Specimen slightly ictericCOMPREHENSIVE METABOLIC [id number] 09:45:00 Test Item Value Reference Range Comments TOTAL PROTEIN (BEAKER) 7.0 gm/dL 6.0-8.3 (test byxq=122) ALBUMIN (BEAKER) (test 2.3 g/dL 3.5-5.0 inme=3671) ALKALINE PHOSPHATASE 271 U/L 40-150 (BEAKER) (test amgl=146) BILIRUBIN TOTAL (BEAKER) 4.3 mg/dL 0.2-1.2 (test igym=848) SODIUM (BEAKER) (test 136 meq/L 136-145 kacp=556) POTASSIUM (BEAKER) (test 3.7 meq/L 3.5-5.1 ubja=039) CHLORIDE (BEAKER) (test 110 meq/L 98-107 rfia=134) CO2 (BEAKER) (test 22 meq/L 22-29 mszn=947) BLOOD UREA NITROGEN 11 mg/dL 7-21 (BEAKER) (test ffva=964) CREATININE (BEAKER) (test 0.80 mg/dL 0.57-1.25 niiz=499) GLUCOSE RANDOM (BEAKER) 119 mg/dL 70-105 (test sujs=772) CALCIUM (BEAKER) (test 8.3 mg/dL 8.4-10.2 feti=614) AST (SGOT) (BEAKER) (test 78 U/L 5-34 nliz=115) ALT (SGPT) (BEAKER) (test 55 U/L 6-55 tcru=532) EGFR (BEAKER) (test 105 mL/min/1.73 sq ESTIMATED GFR IS NOT tcba=4669) m ACCURATE CREATININE CLEARANCE IN PREDICTING GLOMERULAR FILTRATION RATE. ESTIMATED GFR IS NOT APPLICABLE FOR DIALYSIS PATIENTS. Specimen slightly ictericLIPID [id number] 09:45:00 Test Item Value Reference Range Comments TRIGLYCERIDES (BEAKER) (test yyrh=225) 54 mg/dL CHOLESTEROL (BEAKER) (test ddep=784) 67 mg/dL HDL CHOLESTEROL (BEAKER) (test waes=951) 9 mg/dL LDL CHOLESTEROL CALCULATED (BEAKER) (test aqmh=120) 47 mg/dL Triglyceride Reference Range: Low Risk <150 Borderline 150- 199 High Risk 200-499 Very High Risk >=500Cholesterol Reference Range: Low Risk <200 Borderline 200-239 High Risk > 240HDL Cholesterol Reference Range: Low Risk >=60 High Risk <40LDL Cholesterol Reference Range: Optimal <100 Near Optimal 100-129 Borderline 130-159 High 160-189 Very High >=190 Specimen slightly ictericBILIRUBIN, [id number] 09:45:00 Test Item Value Reference Range Comments BILIRUBIN DIRECT (BEAKER) (test yvsw=423) 2.8 mg/dL 0.1-0.5 GAMMA GLUTAMYL TRANSFERASE (GGT)2019-03-14 09:45:00 Test Item Value Reference Range Comments GAMMA GLUTAMYL TRANSFERASE (BEAKER) (test orzq=726) 46 U/L 9-64 Specimen slightly [id number] 09:39:00 Test Item Value Reference Range Comments TRANSFERRIN (BEAKER) (test jtlv=462) 115 mg/dL 174-382 Specimen slightly ictericCALCIUM, [id number] 09:37:00 Test Item Value Reference Range Comments CALCIUM IONIZED (BEAKER) (test skpg=308) 1.23 mmol/L 1.12-1.27 PH, BLOOD (BEAKER) (test ncsz=7799) 7.30 [id number] 09:36:00 Test Item Value Reference Range Comments ETHANOL (BEAKER) (test aulv=461) < mg/dL <=10 PROTHROMBIN TIME/[id number] 09:28:00 Test Item Value Reference Range Comments PROTIME (BEAKER) (test iyqq=017) 25.1 seconds 11.9-14.2 INR (BEAKER) (test xjna=478) 2.4 <=5.9 Effective 09/19/2018: PT Reference Range ChangeNew: 11.9-14.2 Previous: 11.7- 14.7RECOMMENDED COUMADIN/WARFARIN INR THERAPY RANGESSTANDARD DOSE: 2.0-3.0 Includes: PROPHYLAXIS for venous thrombosis, systemic embolization; TREATMENT for venous thrombosis and/or pulmonary embolus.HIGH RISK: Target INR is2.5-3.5 for patients wiht mechanical heart valves.[id number] 09:28:00 Test Item Value Reference Range Comments FIBRINOGEN LEVEL (BEAKER) (test mrca=840) 166 mg/dl 225-434 [id number] 09:28:00 Test Item Value Reference Range Comments PARTIAL THROMBOPLASTIN TIME (BEAKER) (test 55.8 seconds 22.5-36.0 hmwd=175) URINALYSIS W/ [id number] 09:22:00 Test Item Value Reference Range Comments COLOR (BEAKER) (test fonn=353) Yellow CLARITY (BEAKER) (test awkm=087) Clear SPECIFIC GRAVITY UA (BEAKER) (test ekwp=933) 1.010 1.001-1.035 PH UA (BEAKER) (test lwfn=606) 7.0 5.0-8.0 PROTEIN UA (BEAKER) (test dcyp=672) Negative Negative GLUCOSE UA (BEAKER) (test htkr=557) Negative Negative KETONES UA (BEAKER) (test rfgi=852) Negative Negative BILIRUBIN UA (BEAKER) (test hrav=993) Negative Negative BLOOD UA (BEAKER) (test xemy=041) Negative Negative NITRITE UA (BEAKER) (test odyo=873) Negative Negative LEUKOCYTE ESTERASE UA (BEAKER) (test bhjn=347) Negative Negative UROBILINOGEN UA (BEAKER) (test qnrc=065) 0.2 mg/dL 0.2-1.0 RBC UA (BEAKER) (test xvsx=807) 0 /HPF WBC UA (BEAKER) (test fbol=287) 0 /HPF SOURCE(BEAKER) (test rrso=2838) CBC W/PLT COUNT & AUTO [id number] 09:18:00 Test Item Value Reference Range Comments WHITE BLOOD CELL COUNT (BEAKER) (test hflq=215) 7.5 K/ L 3.5-10.5 RED BLOOD CELL COUNT (BEAKER) (test zrlh=259) 2.51 M/ L 4.63-6.08 HEMOGLOBIN (BEAKER) (test bkmg=763) 8.7 GM/DL 13.7-17.5 HEMATOCRIT (BEAKER) (test pbsv=445) 25.1 % 40.1-51.0 MEAN CORPUSCULAR VOLUME (BEAKER) (test nveb=764) 100.0 fL 79.0-92.2 MEAN CORPUSCULAR HEMOGLOBIN (BEAKER) (test 34.7 pg 25.7-32.2 jdou=357) MEAN CORPUSCULAR HEMOGLOBIN CONC (BEAKER) (test 34.7 GM/DL 32.3-36.5 hnnk=292) RED CELL DISTRIBUTION WIDTH (BEAKER) (test 19.6 % 11.6-14.4 evvj=132) PLATELET COUNT (BEAKER) (test kpne=498) 116 K/CU MM 150-450 MEAN PLATELET VOLUME (BEAKER) (test liyp=680) 10.7 fL 9.4-12.4 NUCLEATED RED BLOOD CELLS (BEAKER) (test 0 /100 WBC 0-0 pgii=346) NEUTROPHILS RELATIVE PERCENT (BEAKER) (test 60 % cdjp=721) LYMPHOCYTES RELATIVE PERCENT (BEAKER) (test 21 % uxmw=196) MONOCYTES RELATIVE PERCENT (BEAKER) (test 15 % wxoh=859) EOSINOPHILS RELATIVE PERCENT (BEAKER) (test 3 % mzdl=417) BASOPHILS RELATIVE PERCENT (BEAKER) (test 1 % csbq=339) NEUTROPHILS ABSOLUTE COUNT (BEAKER) (test 4.51 K/ L 1.78-5.38 ryxp=908) LYMPHOCYTES ABSOLUTE COUNT (BEAKER) (test 1.57 K/ L 1.32-3.57 mdwj=133) MONOCYTES ABSOLUTE COUNT (BEAKER) (test 1.14 K/ L 0.30-0.82 imte=673) EOSINOPHILS ABSOLUTE COUNT (BEAKER) (test 0.24 K/ L 0.04-0.54 hafw=183) BASOPHILS ABSOLUTE COUNT (BEAKER) (test 0.04 K/ L 0.01-0.08 mqjc=794) IMMATURE GRANULOCYTES-RELATIVE PERCENT (BEAKER) 0 % 0-1 (test scgn=0540) MYOCARD IMAGING, MULTI, PHARM, [id number] 19:05:00Referring: Dr. Yuniel OliveiraINAL REPORT PROCEDURE: MYOCARDIAL PERFUSION SPECT IMAGING (Rest/Stress)CPT CODE: [id number] INDICATION: Evaluation for coronary artery disease prior [...] MDReport Verified Date/Time: 03/13/2019 19:05:20 Reading Location: [address] Reading Room 07:05 PMANTI-NUCLEAR ANTIBODY ([place])2019-02-18 10:03:00 Test Item Value Reference Range Comments ANTI-NUCLEAR ANTIBODY ([place]) (BEAKER) (test Positive Negative vxkx=733) Test performed by IFA method.[place] TITER AND [id number] 10:03:00 Test Item Value Reference Range Comments [place] TITER (BEAKER) (test gorz=0458) >=:2560 [place] PATTERN (BEAKER) (test apzy=0754) Speckled [id number] 20:03:00 Test Item Value Reference Range Comments FERRITIN (BEAKER) (test mrkd=384) 2900 ng/mL 5-275 ALPHA FETOPROTEIN (AFP), TUMOR [id number] 18:51:00 Test Item Value Reference Range Comments ALPHA-FETOPROTEIN (BEAKER) (test sscy=8677) 14.5 ng/mL <10.0 BILIRUBIN, [id number] 18:34:00 Test Item Value Reference Range Comments BILIRUBIN DIRECT (BEAKER) (test zuzs=018) 3.7 mg/dL 0.1-0.5 COMPREHENSIVE METABOLIC [id number] 18:34:00 Test Item Value Reference Range Comments TOTAL PROTEIN (BEAKER) 7.8 gm/dL 6.0-8.3 (test vgoe=930) ALBUMIN (BEAKER) (test 2.5 g/dL 3.5-5.0 wlbt=9507) ALKALINE PHOSPHATASE 292 U/L 40-150 (BEAKER) (test ikkd=973) BILIRUBIN TOTAL (BEAKER) 5.5 mg/dL 0.2-1.2 (test azse=581) SODIUM (BEAKER) (test 121 meq/L 136-145 usyq=779) POTASSIUM (BEAKER) (test 4.4 meq/L 3.5-5.1 aucf=934) CHLORIDE (BEAKER) (test 95 meq/L 98-107 ymfx=591) CO2 (BEAKER) (test 21 meq/L 22-29 fukf=948) BLOOD UREA NITROGEN 26 mg/dL 7-21 (BEAKER) (test anyy=611) CREATININE (BEAKER) (test 1.09 mg/dL 0.57-1.25 gmwo=867) GLUCOSE RANDOM (BEAKER) 114 mg/dL 70-105 (test hvcv=207) CALCIUM (BEAKER) (test 9.0 mg/dL 8.4-10.2 vaet=156) AST (SGOT) (BEAKER) (test 161 U/L 5-34 qnyh=310) ALT (SGPT) (BEAKER) (test 129 U/L 6-55 meic=890) EGFR (BEAKER) (test 74 mL/min/1.73 sq m ESTIMATED GFR IS NOT xrtv=0166) ACCURATE CREATININE CLEARANCE IN PREDICTING GLOMERULAR FILTRATION RATE. ESTIMATED GFR IS NOT APPLICABLE FOR DIALYSIS PATIENTS. Specimen moderately ictericGAMMA GLUTAMYL TRANSFERASE (GGT)2019-02-14 18:34:00 Test Item Value Reference Range Comments GAMMA GLUTAMYL TRANSFERASE (BEAKER) (test mngw=831) 48 U/L 9-64 Specimen moderately ictericIRON, TIBC, % SAT. (WITHOUT FERRITIN)2019-02-14 18:26 :00 Test Item Value Reference Range Comments IRON (BEAKER) (test sadn=297) 137.0 ug/dL 40.0-160.0 TOTAL IRON BINDING CAPACITY (BEAKER) (test 153 ug/dL 250-450 hinr=837) IRON % SATURATION (2) (BEAKER) (test rtee=3141) 90 % 20-55 YAWUF-3-[id number] 18:26:00 Test Item Value Reference Range Comments ALPHA-1 ANTITRYPSIN (BEAKER) (test ilnm=169) 165.60 mg/dL 90.00-200.00 PROTHROMBIN TIME/[id number] 17:50:00 Test Item Value Reference Range Comments PROTIME (BEAKER) (test rtzy=289) 26.3 seconds 11.9-14.2 INR (BEAKER) (test mkgb=954) 2.6 <=5.9 Effective 09/19/2018: PT Reference Range ChangeNew: 11.9-14.2 Previous: 11.7- 14.7RECOMMENDED COUMADIN/WARFARIN INR THERAPY RANGESSTANDARD DOSE: 2.0-3.0 Includes: PROPHYLAXIS for venous thrombosis, systemic embolization; TREATMENT for venous thrombosis and/or pulmonary embolus.HIGH RISK: Target INR is2.5-3.5 for patients wiht mechanical heart valves.CBC W/PLT COUNT & AUTO [id number] 17:44:00 Test Item Value Reference Range Comments WHITE BLOOD CELL COUNT (BEAKER) (test kuna=310) 11.1 K/ L 3.5-10.5 RED BLOOD CELL COUNT (BEAKER) (test mqqc=215) 2.46 M/ L 4.63-6.08 HEMOGLOBIN (BEAKER) (test rdll=643) 8.6 GM/DL 13.7-17.5 HEMATOCRIT (BEAKER) (test ijkr=397) 23.4 % 40.1-51.0 MEAN CORPUSCULAR VOLUME (BEAKER) (test soji=150) 95.1 fL 79.0-92.2 MEAN CORPUSCULAR HEMOGLOBIN (BEAKER) (test 35.0 pg 25.7-32.2 gasi=918) MEAN CORPUSCULAR HEMOGLOBIN CONC (BEAKER) (test 36.8 GM/DL 32.3-36.5 dfez=450) RED CELL DISTRIBUTION WIDTH (BEAKER) (test 16.1 % 11.6-14.4 xuyt=847) PLATELET COUNT (BEAKER) (test jarp=936) 102 K/CU MM 150-450 MEAN PLATELET VOLUME (BEAKER) (test sqmh=285) 10.0 fL 9.4-12.4 NUCLEATED RED BLOOD CELLS (BEAKER) (test 0 /100 WBC 0-0 thvd=016) NEUTROPHILS RELATIVE PERCENT (BEAKER) (test 72 % cptq=338) LYMPHOCYTES RELATIVE PERCENT (BEAKER) (test 15 % uxyo=698) MONOCYTES RELATIVE PERCENT (BEAKER) (test 11 % dwyh=946) EOSINOPHILS RELATIVE PERCENT (BEAKER) (test 1 % tmnh=256) BASOPHILS RELATIVE PERCENT (BEAKER) (test 1 % ednk=523) NEUTROPHILS ABSOLUTE COUNT (BEAKER) (test 8.02 K/ L 1.78-5.38 xrrl=135) LYMPHOCYTES ABSOLUTE COUNT (BEAKER) (test 1.67 K/ L 1.32-3.57 rdtk=841) MONOCYTES ABSOLUTE COUNT (BEAKER) (test 1.18 K/ L 0.30-0.82 ihyx=317) EOSINOPHILS ABSOLUTE COUNT (BEAKER) (test 0.15 K/ L 0.04-0.54 rtji=403) BASOPHILS ABSOLUTE COUNT (BEAKER) (test 0.05 K/ L 0.01-0.08 ihrl=996) IMMATURE GRANULOCYTES-RELATIVE PERCENT (BEAKER) 0 % 0-1 (test fojs=4313)
--- OUTSIDE RECORDS SUMMARY | 2019-07-28 07:02 | XMS REPORT | Summary of Care ---
:1975 Author Organization [facility] - Health Address [address] [place] [address] Care Team Providers Name Role Phone Yuniel Dailey Patricia Primary Care Provider Reason for Referral Radiology Services (STAT) Status Reason Specialty Diagnoses / Referred By Referred To Procedures Contact Contact New Request Diagnostic Diagnoses Generalized abdominal pain Fever, unspecified fever cause Priyanka Harding, Radiology Procedures US GALL BLADDER FOOD AND NUTRITION SERVICES ASSISTANT [address] [place] [phone] MRI/CAT Scan (STAT) Status Reason Specialty Diagnoses / Referred By Referred To Procedures Contact Contact New Request Diagnostic Diagnoses Generalized abdominal pain Fever, unspecified fever cause Priyanka Harding, Radiology Procedures CT ABDOMEN PELVIS W CONTRAST FOOD AND NUTRITION SERVICES ASSISTANT [address] [place] [phone] Reason for Visit Reason Comments Abdominal Pain UNABLE TO URINATE Auth/Cert Status Reason Specialty Diagnoses / Referred By Referred To Procedures Contact Contact [facility] [address] [place] [address] [place] [address] Encounter Details Date Type Department Care Team Description 05/11/2019 - Emergency [facility]-Emergency Priyanka Harding, Viral syndrome ( Primary Dx); 05/12/2019 Department FOOD AND NUTRITION SERVICES ASSISTANT Generalized abdominal pain; [address] [place] [address] [place] [address] Fever, unspecified fever cause; [place] [id number] [place] [address]. Urinary retention; [phone] [place], [place] Transaminitis [id number] Allergies No Known Allergiesdocumented as of this encounter (statuses as of 05/12/2019) Medications Medication Sig Dispensed Refills Start Date [...] times liver failure without hepatic daily. coma furosemide (LASIX) 20 mg tablet Take 20 mg by mouth 0 Active daily. rifAXIMin (XIFAXAN) 550 mg tablet Take 550 mg by 0 Active mouth 2 (two) times daily. gabapentin ER 300 mg tablet, Take 300 mg by 0 Active extended release 24 hr mouth 2 (two) times daily as needed for Pain (scale 4-6). imcvwvzz-qvvy-MC-calcium-mins 9 Take 1 tablet by 0 Active mg iron-400 mcg tablet mouth daily. zinc sulfate (ZINC-220 ORAL) Take by mouth. 0 Active HYDROXYZINE HCL ORAL Take 50 mg by mouth 0 Active every 6 (six) hours as needed for Other (anxiety). ergocalciferol, vitamin d2, Take 50,000 Units 0 Active (VITAMIN D2) 50,000 unit capsule by mouth weekly. escitalopram oxalate (LEXAPRO) 20 Take 20 mg by mouth 0 Active mg tablet daily. carisoprodol (SOMA) 350 mg tablet Take 350 mg by 0 Active mouth 4 (four) times daily as needed [...] fever cause needed for Pain (scale 1-3). documented as of this encounter (statuses as of 05/12/2019) Active Problems Problem Noted Date Liver cirrhosis, alcoholic 04/30/2019 UGIB (upper gastrointestinal [...] as of this encounter (statuses as of 05/12/2019) Immunizations Name Administration Dates Next Due Influenza [...] Sign Reading Time Taken Comments Blood Pressure 123/76 05/12/2019 12:23 AM TELEPRINTER INSTALLER Pulse 98 05/12/2019 12:23 AM TELEPRINTER INSTALLER Temperature 37.1 C (98.8 F) 05/11/2019 11:45 PM TELEPRINTER INSTALLER Respiratory Rate 16 05/12/2019 12:23 AM TELEPRINTER INSTALLER Oxygen Saturation 99% 05/12/2019 12:23 AM TELEPRINTER INSTALLER Inhaled Oxygen Concentration - - Weight 81.6 kg (180 lb) 05/11/2019 7:49 PM TELEPRINTER INSTALLER Height - - Body Mass Index 26.58 05/10/2019 2:31 AM TELEPRINTER INSTALLER documented in this encounter Discharge Instructions Elisha HenryELIJAH heaton - 05/12/2019DIAGNOSIS 1. Fever 2. Abdominal pain 3. Urinary retention 4. Viral syndrome NO LIFE-THREATENING FINDINGS ON TODAY'S EXAM. PROCEDURES IN THE ER TODAY: Labs CT scan Ultrasound flu MEDICATIONS ADMINISTERED IN THE ER TODAY: Normal saline Motrin YOUR PRESCRIPTIONS AND [id number] MEDICATION RECOMMENDATIONS: none SPECIAL CARE INSTRUCTIONS: Follow up with GI FOLLOW-UP RECOMMENDATIONS: RECOMMEND FOLLOW-UP WITH A PRIMARY CARE PROVIDER OR SPECIALIST IN 2-5 DAYS, ESPECIALLY IF NO IMPROVEMENT IN SYMPTOMS. TO FOLLOW-UP WITHIN THE [facility], TRY THESE OPTIONS (CLINIC APPOINTMENTS AVAILABLE ON [id number] BASIS): 1. SCHEDULE AN APPOINTMENT ONLINE AT WWW[facility] 2. OR CALL THE [facility] ACCESS CENTER AT OR 3. OR CALL YOUR [facility] PHYSICIAN'S OFFICE DIRECTLY IF YOU ARE ALREADY AN ESTABLISHED [facility] PATIENT. OR, YOU MAY FOLLOW-UP WITH A PROVIDER OF YOUR CHOICE, SUCH : 1. A PHYSICIAN OF YOUR CHOICE 2. [facility], . LOCATIONS IN [facility] 3. [facility], [address] [place] [address]; RETURN TO ER FOR WORSENING OF SYMPTOMS. AttachmentsThe following attachments cannot be sent through Care Everywhere.Viral Syndrome (Adult) (Surinamese)Febrile Illness, Uncertain Cause ( Adult) (Surinamese)documented in this encounter Plan of Treatment Name Type Priority Associated Diagnoses Date/Time BLOOD CULTURE SCREEN LAB STAT Generalized abdominal pain 05/11/2019 8:27 PM TELEPRINTER INSTALLER Fever, unspecified fever cause BLOOD CULTURE SCREEN LAB STAT Generalized abdominal pain 05/11/2019 8:06 PM TELEPRINTER INSTALLER Fever, unspecified fever cause Name Type Priority Associated Diagnoses Order Schedule BLOOD CULTURE SCREEN LAB Routine Generalized abdominal ONCE for 1 Occurrences pain starting 05/11/2019 until Fever, unspecified fever 05/11/2019 cause URINE CULTURE LAB STAT Generalized abdominal STAT for 1 Occurrences pain starting 05/11/2019 until Fever, unspecified fever 05/11/2019 cause Health Maintenance Due Date Last Done Comments DTaP,Tdap,and Td Vaccines (1 - Tdap) 1986 INFLUENZA VACCINE (#1) 2018 01/22/2018 PNEUMOCOCCAL 0-64 YEARS COMBINED SERIES (1 of 1 - 01/16/2019 11/21/2018 PPSV23) documented as of this encounter Procedures Procedure Name Priority Date/Time Associated Comments Diagnosis US GALL BLADDER STAT 05/11/2019 11:36 Generalized Results for this PM TELEPRINTER INSTALLER abdominal pain procedure are in Fever, unspecified the results fever cause section. URINALYSIS STAT 05/11/2019 9:10 Generalized Results for this PM TELEPRINTER INSTALLER abdominal pain procedure are in Fever, unspecified the results fever cause section. CT ABDOMEN PELVIS W STAT 05/11/2019 8:56 Generalized Results for this CONTRAST PM TELEPRINTER INSTALLER abdominal pain procedure are in Fever, unspecified the results fever cause section. CBC WITH STAT 05/11/2019 8:06 Generalized Results for this DIFFERENTIAL PM TELEPRINTER INSTALLER abdominal pain procedure are in Fever, unspecified the results fever cause section. ADC,CLC OR LCC ONLY STAT 05/11/2019 8:06 Generalized Results for this - INFLUENZA A & B PM TELEPRINTER INSTALLER abdominal pain procedure are in DIRECT ANTIGEN Fever, unspecified the results fever cause section. CBC WITH STAT 05/11/2019 8:06 Generalized Results for this DIFFERENTIAL PM TELEPRINTER INSTALLER abdominal pain procedure are in Fever, unspecified the results fever cause section. COMP. METABOLIC STAT 05/11/2019 8:06 Generalized Results for this PANEL (22509) PM TELEPRINTER INSTALLER abdominal pain procedure are in Fever, unspecified the results fever cause section. AMMONIA, PLASMA STAT 05/11/2019 8:06 Generalized Results for this PM TELEPRINTER INSTALLER abdominal pain procedure are in Fever, unspecified the results fever cause section. LIPASE STAT Add-On 05/11/2019 8:06 Generalized Results for this PM TELEPRINTER INSTALLER abdominal pain procedure are in the results section. BLOOD CULTURE SCREEN STAT 05/11/2019 8:06 Generalized PM TELEPRINTER INSTALLER abdominal pain Fever, unspecified fever cause LACTIC ACID WHOLE STAT 05/11/2019 8:05 Generalized Results for this BLOOD PM TELEPRINTER INSTALLER abdominal pain procedure are in Fever, unspecified the results fever cause section. CONSENT/REFUSAL FOR Routine 05/11/2019 7:37 DIAGNOSIS AND PM TELEPRINTER INSTALLER TREATMENT documented in this encounter Results US GALL BLADDER (05/11/2019 11:36 PM TELEPRINTER INSTALLER) Specimen Impressions Performed At PACS/VR/DOSE 1. Cirrhosis with ascites. 2. Distended gallbladder without convincing sonographic evidence of acute cholecystitis. 3. Dilated common bile duct measuring 8.7 mm. If there is high clinical concern for biliary obstruction MRCP can be performed. RL: [id number] AFC: [id number] End of report Narrative Performed At ORDERING CLINICIAN: PRIYANKA HARDING PACS/VR/DOSE TECHNIQUE: Sonographic evaluation of the right upper quadrant was performed. INDICATION: Abdominal pain COMPARISON: None DISCUSSION: The liver is heterogeneous with lobular contour suggesting cirrhosis. There is moderate ascites. The gallbladder is distended. No stones are identified. There is no definite wall thickening. The common bile duct is dilated measuring 8.7 mm. The visualized portions of the pancreas are unremarkable. Procedure Note [facility], Radiant Results Inft User - 05/11/2019 11:56 PM TELEPRINTER INSTALLER ORDERING CLINICIAN: PRIYANKA HARDING TECHNIQUE: Sonographic evaluation of the right upper quadrant was performed. INDICATION: Abdominal pain COMPARISON: None DISCUSSION: The liver is heterogeneous with lobular contour suggesting cirrhosis. There is moderate ascites. The gallbladder is distended. No stones are identified. There is no definite wall thickening. The common bile duct is dilated measuring 8.7 mm. The visualized portions of the pancreas are unremarkable. IMPRESSION 1. Cirrhosis with ascites. 2. Distended gallbladder without convincing sonographic evidence of acute cholecystitis. 3. Dilated common bile duct measuring 8.7 mm. If there is high clinical concern for biliary obstruction MRCP can be performed. RL: [id number] AFC: [id number] End of report Performing Organization Address City/State/Zipcode Phone Number PACS/VR/DOSE URINALYSIS (05/11/2019 9:10 PM TELEPRINTER INSTALLER) APPEARANCE Clear Clear [facility] COLOR Odalys (A) Yellow [facility] PH 6.0 4.8 - 8.0 [facility] SP GRAVITY 1.023 1.003 - 1.030 [facility] GLU U QUAL Normal Normal [facility] BLOOD Negative Negative [facility] KETONES Negative Negative [facility] PROTEIN Negative Negative [facility] UROBILIN Normal Normal [facility] BILIRUBIN Negative Negative [facility] NITRITE Negative Negative [facility] [place] Negative Negative [facility] RBC/HPF 4 (H) 0 - 3 HPF [facility] WBC/HPF 1 0 - 5 HPF [facility] BACTERIA Negative Negative [facility] MUCOUS Slight (A) Negative LPF [facility] Specimen Urine - URINE, CLEAN CATCH Performing Organization Address City/State/Zipcode Phone Number [facility] CLIA: [id number], [address] [place] [address] ABDOMEN PELVIS W CONTRAST (05/11/2019 8:56 PM TELEPRINTER INSTALLER) Specimen Impressions Performed At PACS/VR/DOSE Large volume ascites surrounds liver, spleen and extends to pelvis. Liver has a cirrhotic morphology with a 3.3 cm anterior mass worrisome for an HCC. The gallbladder is distended and the CBD is prominent. Suggest follow-up with gallbladder ultrasound if patient remains acute in pain. Small bilateral pleural effusions larger on left. Narrative Performed At EXAM: CT ABDOMEN AND PELVIS WITH CONTRAST PACS/VR/DOSE HISTORY: 44-year-old male with acute abdominal pain and fever. COMPARISON: MRI 11/16/2018 TECHNIQUE AND FINDINGS: Contiguous axial imaging from the level of the lung bases through the pubic symphysis was performed after the uncomplicated administration of 120 cc of intravenous Omnipaque contrast. Coronal and sagittal reconstructions were obtained. DOSE: DLP is 487 mGy/cm. FINDINGS: LOWER THORAX: The lungs bases are clear. No cardiomegaly. A small left pleural effusion and trace right effusion noted. LIVER: The liver has a nodular fine nodular cirrhotic contour. It segment 8 anterior has a subcapsular 3.3 cm solid nodule, appears stable No biliary ductal dilation. GALLBLADDER AND BILIARY TREE: No biliary ductal dilation. The gallbladder is distended and at least 12 cm long and the lumen appears clear. The CBD is prominent with diameter of 8 mm. SPLEEN: No splenomegaly. PANCREAS: No ductal dilation or masses. ADRENAL GLANDS: No adrenal nodules. KIDNEYS: No hydronephrosis, stones, or masses. The appendix is not visualized. PELVIS/BLADDER: Unremarkable. VESSELS: Unremarkable. BONES AND SOFT TISSUES: No suspicious lytic or sclerotic bony lesions. Procedure Note [facility], Radiant Results Inft User - 05/11/2019 9:36 PM TELEPRINTER INSTALLER EXAM: CT ABDOMEN AND PELVIS WITH CONTRAST HISTORY: 44-year-old male with acute abdominal pain and fever. COMPARISON: MRI 11/16/2018 TECHNIQUE AND FINDINGS: Contiguous axial imaging from the level of the lung bases through the pubic symphysis was performed after the uncomplicated administration of 120 cc of intravenous Omnipaque contrast. Coronal and sagittal reconstructions were obtained. DOSE: DLP is 487 mGy/cm. FINDINGS: LOWER THORAX: The lungs bases are clear. No cardiomegaly. A small left pleural effusion and trace right effusion noted. LIVER: The liver has a nodular fine nodular cirrhotic contour. It segment 8 anterior has a subcapsular 3.3 cm solid nodule, appears stable No biliary ductal dilation. GALLBLADDER AND BILIARY TREE: No biliary ductal dilation. The gallbladder is distended and at least 12 cm long and the lumen appears clear. The CBD is prominent with diameter of 8 mm. SPLEEN: No splenomegaly. PANCREAS: No ductal dilation or masses. ADRENAL GLANDS: No adrenal nodules. KIDNEYS: No hydronephrosis, stones, or masses. The appendix is not visualized. PELVIS/BLADDER: Unremarkable. VESSELS: Unremarkable. BONES AND SOFT TISSUES: No suspicious lytic or sclerotic bony lesions. IMPRESSION Large volume ascites surrounds liver, spleen and extends to pelvis. Liver has a cirrhotic morphology with a 3.3 cm anterior mass worrisome for an HCC. The gallbladder is distended and the CBD is prominent. Suggest follow-up with gallbladder ultrasound if patient remains acute in pain. Small bilateral pleural effusions larger on left. Performing Organization Address City/State/Zipcode Phone Number PACS/VR/DOSE LIPASE (05/11/2019 8:06 PM TELEPRINTER INSTALLER) LIPASE 154 0 - 220 U/L [facility] Specimen Blood - VENOUS Performing Organization Address City/[facility]/Zipcode Phone Number [facility] CLIA: [id number], [address] [place] [address] CBC WITH DIFFERENTIAL (05/11/2019 8:06 PM TELEPRINTER INSTALLER) WBC 6.77 4.20 - 10.70 [facility] 10*3/L [facility] RBC 2.57 (L) 4.26 - 5.52 [facility] 10*6/L [facility] HGB 8.6 (L) 12.2 - 16.4 [facility] g/dL HOSPITAL [facility]ORY HCT 25.4 (L) 38.4 - 49.3 % [facility] MCV 98.8 (H) 81.7 - 95.6 fL [facility] MCH 33.5 (H) 26.1 - 32.7 pg [facility] MCHC 33.9 31.2 - 35.0 [facility] g/dL [facility] RDW-SD 70.0 (H) 38.5 - 51.6 fL [facility] RDW-CV 19.8 (H) 12.1 - 15.4 % [facility] PLT 93 (L) 150 - 328 [facility] 10*3/L [facility] MPV 10.4 9.8 - 13.0 fL [facility] NRBC/100 WBC 0.0 0.0 - 10.0 /100 [facility] WBCs [facility] NRBC x10^3 <0.01 10*3/L [facility] GRAN MAT (NEUT) % 78.5 % [facility] IMM GRAN % 0.60 % [facility] LYMPH % 10.2 % [facility] MONO % 9.3 % [facility] EOS % 1.0 % [facility] BASO % 0.4 % [facility] GRAN MAT x10^3(ANC) 5.31 1.99 - 6.95 [facility] 10*3/uL [facility] IMM GRAN x10^3 0.04 0.00 - 0.06 [facility] 10*3/uL [facility] LYMPH x10^3 0.69 (L) 1.09 - 3.23 [facility] 10*3/uL [facility] MONO x10^3 0.63 0.36 - 1.02 [facility] 10*3/uL H[facility]ITAL [facility] EOS x10^3 0.07 0.06 - 0.53 [facility] 10*3/uL [facility]ITAL [facility] BASO x10^3 0.03 0.01 - 0.09 [facility] 10*3/uL [facility] Specimen Blood - VENOUS Performing Organization Address City/State/Zipcode Phone Number [facility] CLIA: [id number], [address] [place] [address] ADC,CLC OR LCC ONLY - INFLUENZA A & B DIRECT ANTIGEN (05/11/2019 8:06 PM TELEPRINTER INSTALLER) Influenza A Negative Negative [facility] Influenza B Negative Negative [facility] Specimen Swab - NARE, LEFT SIDE Performing Organization Address City/[facility]/Zipcode Phone Number [facility] CLIA: [id number], [address] [place] [address] AMMONIA, PLASMA (05/11/2019 8:06 PM TELEPRINTER INSTALLER) AMMONIA 33Comment: Slight 9 - 33 umol/L [facility] LABORATORY Specimen Blood - VENOUS Performing Organization Address City/[facility]/Zipcode Phone Number [facility] CLIA: [id number], [address] [place] [address] COMP. METABOLIC PANEL ([id number]) (05/11/2019 8:06 PM TELEPRINTER INSTALLER) NA 135 135 - 145 [facility] mmol/L [facility] K 4.7 3.5 - 5.0 [facility] mmol/L [facility] CL 106 98 - 108 mmol/L [facility] CO2 TOTAL 21 (L) 23 - 31 mmol/L [facility] AGAP 8 2 - 16 [facility] BUN 19 7 - 23 mg/dL [facility] GLUCOSE 136 (H) 70 - 110 mg/dL [facility] CREATININE 1.04 0.60 - 1.25 [facility] mg/dL [facility] TOTAL BILI 5.6 (H) 0.1 - 1.1 mg/dL [facility] CALCIUM 9.1 8.6 - 10.6 [facility] mg/dL [facility] T PROTEIN 7.7 6.3 - 8.2 g/dL [facility] ALBUMIN 3.0 (L) 3.5 - 5.0 g/dL [facility] ALK PHOS 349 (H) 34 - 122 U/L [facility] ALTv 82 (H) 5 - 50 U/L [facility] AST(SGOT) 104 (H) 13 - 40 U/L [facility] eGFR Calculation 77.6 mL/min/1.73m2 [facility] (Non-[facility] LAB[facility]ATORY [place]) eGFR Calculation 94.0 mL/min/1.73m2 [facility] LABORATORY Specimen Blood - VENOUS Narrative Performed At Association of Glomerular Filtration Rate (GFR) [facility] and Staging of Kidney Disease* + + +- + | GFR (mL/min/1.73 m2) | With Kidney Damage | Without Kidney Damage + + +- + | >90 | Stage one | Normal + + +- + | 60-89 | Stage two | Decreased GFR + + +- + | 30-59 | Stage three | Stage three + + +- + | 15-29 | Stage four | Stage four + + +- + | <15 (or dialysis) | Stage five | Stage five + + +- + *Each stage assumes the associated GFR level has been in effect for at least three months. Stages 1 to 5, with or without kidney [...] abnormalities in imaging tests). Performing Organization Address City/[facility]ode Phone Number [facility] CLIA: [id number], [address] [place], [place] [address] LABORAT[address] Lactic Acid Whole Blood (05/11/2019 8:05 PM TELEPRINTER INSTALLER) [facility] Signature LACTIC ACID 1.87 0.50 - 2.20 mmol/L [facility] Specimen Blood - VENOUS Performing Organization Address [facility] Cent[facility]osd Phone Number [facility] CLIA: [id number], [address] [place] [address] documented in this encounter Visit Diagnoses Diagnosis Viral syndrome - Primary Unspecified viral infection, in conditions classified elsewhere and of unspecified site Generalized abdominal pain Abdominal pain, generalized Fever, unspecified fever cause Urinary retention Retention of urine, unspecified Transaminitis Nonspecific elevation of levels of transaminase or lactic acid dehydrogenase ( LDH) documented in this encounter Administered Medications Medication Order MAR Action Action Date Dose Rate Site ibuprofen (IBU) tablet 600 mg Given 05/11/2019 8:16 PM TELEPRINTER INSTALLER 600 mg 600 mg, Oral, ONCE, 1 dose, 05/11/19 at 2100, RUPERT iohexol (OMNIPAQUE 350 BULK-150 mL) Given 05/11/2019 9:00 PM TELEPRINTER INSTALLER 120 mL injection 120 mL 120 mL, Intravenous, ONCE, 1 dose, 05/11/19 at 2100, Routine NaCl 0.9% (NS) bolus infusion New Bag 05/11/2019 8:28 PM TELEPRINTER INSTALLER 1,000 mL 999 mL/hr 1,000 mL at 999 mL/hr, 1,000 mL, IV Infusion, ONCE, 1 dose, 05/11/19 at 2100, STAT documented in this encounter Insurance Payer Benefit Plan / Subscriber ID Effective Dates Phone Address Type Group [facility] xxxxxxxxx 2019-[facility] Medicaid COMM PLAN - PLUS t MANAGED MEDICAID documented as of this encounter"
--- OUTSIDE RECORDS SUMMARY | 2019-07-28 07:02 | XMS REPORT | Summary of Care ---
:1975 Author Organization [facility] - Health Address [address] [place] [address] Care Team Providers Name Role Phone Doris Narayanan Primary Care Provider Reason for Visit Reason Comments CRAMPS leg cramps Auth/Cert Status Reason Specialty Diagnoses / Referred By Referred To Procedures Contact Contact [facility] [address] [place] [address] [place] [address] Encounter Details Date Type Department Care Team Description 05/10/2019 Emergency [facility]Emergency Skyler Loo, Leg cramps (Primary Dx); Department Hypomagnesemia [address] [place] [address] [place] [id number] [place], [place] [id number] Allergies No Known Allergiesdocumented as of this encounter (statuses as of 05/10/2019) Medications Medication Sig Dispensed Refills Start Date [...] daily as needed for Pain (scale 4-6). tqgluxyx-viea-ME-calcium-mins 9 Take 1 tablet by 0 Active [...] cramps, mouth 3 (three) Hypomagnesemia times daily. documented as of this encounter (statuses as of 05/10/2019) Active Problems Problem Noted Date Liver cirrhosis, [...] as of this encounter (statuses as of 05/10/2019) Immunizations Name Administration Dates Next Due Influenza [...] Sign Reading Time Taken Comments Blood Pressure 128/74 05/10/2019 4:00 AM TIE MAKER Pulse 86 05/10/2019 4:00 AM TIE MAKER Temperature 36.8 C (98.2 F) 05/10/2019 2:31 AM TIE MAKER Respiratory Rate 18 05/10/2019 4:00 AM TIE MAKER Oxygen Saturation 97% 05/10/2019 4:00 AM TIE MAKER Inhaled Oxygen Concentration - - Weight 81.6 kg (180 lb) 05/10/2019 2:31 AM TIE MAKER Height 175.3 cm (5' 9") 05/10/2019 2:31 AM TIE MAKER Body Mass Index 26.58 05/10/2019 2:31 AM TIE MAKER documented in this encounter Discharge Instructions Skyler Bowen MD - 05/10/2019 DIAGNOSIS Diagnoses that have been ruled out: None Diagnoses that are still under consideration: None Final diagnoses: Leg cramps Hypomagnesemia NO LIFE-THREATENING FINDINGS ON TODAY'S EXAM. PROCEDURES IN THE ER TODAY: Orders Placed This Encounter Procedures CBC with Differential Basic Metabolic Panel (NA, K, CL, CO2, GLUCOSE, BUN, CREATININE, CA) MAGNESIUM CBC WITH DIFFERENTIAL MEDICATIONS ADMINISTERED IN THE ER TODAY: Orders Placed This Encounter Medications morpHINE injection 4 mg ondansetron (ZOFRAN (PF)) injection 4 mg LORazepam (ATIVAN) injection 1 mg magnesium sulfate in water 2 gram/50 mL (4 %) infusion 2 g YOUR PRESCRIPTIONS AND [id number]-[id number] MEDICATION RECOMMENDATIONS: Continue home medications SPECIAL CARE INSTRUCTIONS: Follow up with PCP Return to the ED if worsening of symptoms. FOLLOW-UP RECOMMENDATIONS: RECOMMEND FOLLOW-UP WITH A PRIMARY CARE PROVIDER OR SPECIALIST IN 2-5 DAYS, ESPECIALLY IF NO IMPROVEMENT IN SYMPTOMS. TO FOLLOW-UP WITHIN THE [facility], TRY THESE OPTIONS (CLINIC APPOINTMENTS AVAILABLE ON LAMF-MI-WIUM BASIS): 1. SCHEDULE AN APPOINTMENT ONLINE AT WWW[facility] 2. OR CALL THE [facility] AT OR 3. OR CALL YOUR [facility] PHYSICIAN'S OFFICE DIRECTLY IF YOU ARE ALREADY AN ESTABLISHED [facility] PATIENT. OR, YOU MAY FOLLOW-UP WITH A PROVIDER OF YOUR CHOICE, SUCH : 1. A PHYSICIAN OF YOUR CHOICE 2. [facility], . LOCATIONS IN [facility] 3. [facility], [address], [place]; RETURN TO ER FOR WORSENING OF SYMPTOMS. AttachmentsThe following attachments cannot be sent through Care Everywhere.Muscle Spasm (Irish)Hypomagnesemia, Discharge Instructions (Irish )documented in this encounter Plan of Treatment Health Maintenance Due Date Last Done Comments DTaP,Tdap,and Td Vaccines (1 - Tdap) 1986 INFLUENZA VACCINE (#1) 2018 01/22/2018 PNEUMOCOCCAL 0-64 YEARS COMBINED SERIES (1 of 1 - 01/16/2019 11/21/2018 PPSV23) documented as of this encounter Procedures Procedure Name Priority Date/Time Associated Comments Diagnosis CBC WITH DIFFERENTIAL STAT 05/10/2019 2:50 Leg cramps Results for this AM TIE MAKER procedure are in the results section. CBC WITH DIFFERENTIAL Routine 05/10/2019 2:50 Leg cramps Results for this AM TIE MAKER procedure are in the results section. BASIC METABOLIC PANEL STAT 05/10/2019 2:50 Leg cramps Results for this (NA, K, CL, CO2, AM TIE MAKER procedure are in GLUCOSE, BUN, the results CREATININE, CA) section. MAGNESIUM STAT 05/10/2019 2:50 Leg cramps Results for this AM TIE MAKER procedure are in the results section. documented in this encounter Results CBC WITH DIFFERENTIAL (05/10/2019 2:50 AM TIE MAKER) WBC 6.51 4.20 - 10.70 [facility] 10*3/L [facility] RBC 2.41 (L) 4.26 - 5.52 [facility] 10*6/L [facility] HGB 8.3 (L) 12.2 - 16.4 [facility] g/dL [facility] HCT 23.6 (L) 38.4 - 49.3 % [facility] MCV 97.9 (H) 81.7 - 95.6 fL [facility] MCH 34.4 (H) 26.1 - 32.7 pg [facility] MCHC 35.2 (H) 31.2 - 35.0 [facility] g/dL [facility] RDW-SD 67.5 (H) 38.5 - 51.6 fL [facility] RDW-CV 19.0 (H) 12.1 - 15.4 % [facility] PLT 89 (L) 150 - 328 [facility] 10*3/L [facility] MPV 10.4 9.8 - 13.0 fL [facility] NRBC/100 WBC 0.0 0.0 - 10.0 /100 [facility] WBCs [facility] NRBC x10^3 <0.01 10*3/L [facility] GRAN MAT (NEUT) % 59.7 % [facility] IMM GRAN % 0.50 % [facility] LYMPH % 20.4 % [facility] MONO % 16.9 % [facility] EOS % 2.0 % [facility] BASO % 0.5 % [facility] GRAN MAT x10^3(ANC) 3.89 1.99 - 6.95 [facility] 10*3/uL [facility] IMM GRAN x10^3 0.03 0.00 - 0.06 [facility] 10*3/uL [facility] LYMPH x10^3 1.33 1.09 - 3.23 [facility] 10*3/uL [facility] MONO x10^3 1.10 (H) 0.36 - 1.02 [facility] 10*3/uL [facility] EOS x10^3 0.13 0.06 - 0.53 [facility] 10*3/uL [facility] BASO x10^3 0.03 0.01 - 0.09 [facility] 10*3/uL [facility] Specimen Blood - ARM, RIGHT Performing Organization Address [facility] Cent[facility]ode Phone Number [facility] CLIA: [id number], [address] [place] [address] MAGNESIUM (05/10/2019 2:50 AM TIE MAKER) MAGNESIUM 1.4 (L) 1.7 - 2.4 mg/dL [facility] Specimen Blood - ARM, RIGHT Performing Organization Address [facility] Centercomd Phone Number [facility] CLIA: [id number], [address] [place] [address] Basic Metabolic Panel (NA, K, CL, CO2, GLUCOSE, BUN, CREATININE, CA) (2019 2:50 AM TIE MAKER) NA 135 135 - 145 [facility] mmol/L [facility] K 3.9 3.5 - 5.0 [facility] mmol/L [facility] CL 106 98 - 108 mmol/L [facility] CO2 TOTAL 20 (L) 23 - 31 mmol/L [facility] AGAP 9 2 - 16 [facility] BUN 21 7 - 23 mg/dL [facility] GLUCOSE 196 (H) 70 - 110 mg/dL [facility] CREATININE 1.02 0.60 - 1.25 [facility] mg/dL [facility] CALCIUM 8.6 8.6 - 10.6 [facility] mg/dL [facility] eGFR Calculation 79.3 mL/min/1.73m2 [facility] (Non-[facility] LABORATORY [place]) eGFR Calculation 96.2 mL/min/1.73m2 [facility] () [facility] Specimen Blood - ARM, RIGHT Narrative Performed At Association of Glomerular Filtration Rate (GFR) [facility] and Staging of Kidney Disease* [...] tests). Performing Organization Address City/State/Zipcode Phone Number [facility] CLIA: [id number], [address] [place] [address] documented in this encounter Visit Diagnoses Diagnosis Leg cramps - Primary Cramp of limb Hypomagnesemia Disorders of magnesium metabolism documented in this encounter Administered Medications Medication Order MAR Action Action Date Dose Rate Site LORazepam (ATIVAN) injection 1 Given 05/10/2019 2:44 AM TIE MAKER 1 mg Right Arm mg 1 mg, Slow IV Push, ONCE, 1 dose, 05/10/19 at 0345, STAT magnesium sulfate in water 2 gram/50 New Bag 05/10/2019 4:03 AM TIE MAKER 2 g Right Arm mL (4 %) infusion 2 g 2 g, IV Piggyback, ONCE, 1 dose, 05/10/19 at 0500, Routine morpHINE injection 4 mg Given 05/10/2019 2:43 AM TIE MAKER 4 mg Right Arm 4 mg, Slow IV Push, ONCE, 1 dose, 05/10/19 at 0345, STAT ondansetron (ZOFRAN (PF)) injection 4 Given 05/10/2019 2:43 AM TIE MAKER 4 mg Right Arm mg 4 mg, Slow IV Push, ONCE, 1 dose, 05/10/19 at 0345, RUPERT documented in this encounter Insurance Payer Benefit Plan / Subscriber ID Effective Dates Phone Address Type Group [facility] xxxxxxxxx 2019-[facility] Medicaid COMM PLAN - PLUS t MANAGED MEDICAID documented as of this encounter
--- OUTSIDE RECORDS SUMMARY | 2019-07-28 07:03 | XMS REPORT | Summary of Care ---
:1975 Author Organization [facility] - Health Address [address] [place] [address] Care Team Providers Name Role Phone Yuniel Dailey Primary Care Provider Encounter Details Date Type Department Care Team Description 05/12/2019 Orders Only [facility] Doctor Unassigned, No [address] [facility] [place] [address] [place] [address] Allergies No Known Allergiesdocumented as of this [...] daily as needed for Pain (scale 4-6). sofytpvw-zlzc-DE-calcium-mins 9 Take 1 tablet by 0 Active [...] Procedure Name Priority Date/Time Associated Diagnosis Comments CONSENT/REFUSAL FOR Routine 05/12/2019 1:28 PM CONSTRUCTION SUPERVISOR DIAGNOSIS AND TREATMENT documented in this encounter Results Not on filedocumented in this encounter Insurance Payer Benefit Plan / Subscriber ID Effective Dates Phone Address Type Group [facility] xxxxxxxxx 2019-[facility] Medicaid COMM PLAN - PLUS t MANAGED MEDICAID documented as of this encounter
--- OUTSIDE RECORDS SUMMARY | 2019-07-28 07:03 | XMS REPORT | Summary of Care ---
:1975 Author Organization [facility] - Health Address [address] [place] [address] Care Team Providers Name Role Phone Doris Narayanan ELIJAH Primary Care Provider DaileyYuniel Primary Care Provider Encounter Details Date Type Department Care Team Description 05/06/2019 Orders Only [facility] Doctor Unassigned, No [address] [facility] [place] [address] [address] [place] [address] Allergies No Known Allergiesdocumented as of this encounter (statuses as of 05/15/2019) Medications Medication Sig Dispensed Refills Start Date End Date Status spironolactone 100 mg Take 1 tablet 30 tablet 12 01/22/2019 Suspended tabletIndications: by mouth Chronic liver failure daily. without hepatic coma Additional information Patient taking differently: 50 mg Oral BID, Reported on 04/30/2019 4:41 PM lactulose 10 gram/15 mL Take 30 mL by mouth 500 mL 12 01/22/2019 Suspended solutionIndications: Chronic 2 (two) times liver failure without hepatic daily. coma Additional information furosemide (LASIX) 20 mg Take 20 mg by mouth 0 Suspended tablet daily. rifAXIMin (XIFAXAN) 550 mg Take 550 mg by mouth 2 0 Suspended tablet (two) times daily. gabapentin ER 300 mg tablet, Take 300 mg by mouth 2 0 Suspended extended release 24 hr (two) times daily as needed for Pain (scale 4-6). nzyychzz-xrvl-SS-calcium-mins Take 1 tablet by mouth 0 Suspended 9 mg iron-400 mcg tablet daily. zinc sulfate (ZINC-220 ORAL) Take by mouth. 0 Suspended HYDROXYZINE HCL ORAL Take 50 mg by mouth 0 Suspended every 6 (six) hours as needed for Other (anxiety). ergocalciferol, vitamin d2, Take 50,000 Units by 0 Suspended (VITAMIN D2) 50,000 unit mouth weekly. capsule escitalopram oxalate Take 20 mg by mouth 0 Suspended (LEXAPRO) 20 mg tablet daily. carisoprodol (SOMA) 350 mg Take 350 mg by mouth 4 0 Suspended tablet (four) times daily as needed for Insomnia. folic acid 0.8 mg Cap Take 1 capsule by mouth 0 Suspended daily. sucralfate 100 mg/mL Take 10 mL by mouth as 480 mL 0 05/02/2019 Suspended suspensionIndications: Acute needed (esophageal upper GI bleed pain). Additional information documented as of this encounter (statuses as of 05/15/2019) Active Problems Problem Noted Date Spontaneous bacterial [...] as of this encounter (statuses as of 05/15/2019) Immunizations Name Administration Dates Next Due Influenza [...] Procedure Name Priority Date/Time Associated Diagnosis Comments AUTHORIZATION FOR RELEASE Routine 05/06/2019 12:01 AM OF PHI PENSIONHOLDER INFORMATION CLERK documented in this encounter Results Not on filedocumented in this encounter Insurance Payer Benefit Plan / Subscriber ID Effective Dates Phone Address Type Group [facility] xxxxxxxxx 2019-[facility] Medicaid COMM PLAN - PLUS t MANAGED MEDICAID documented as of this encounter
--- OUTSIDE RECORDS SUMMARY | 2019-07-28 07:05 | XMS REPORT | Summary of Care ---
:1975 Author Organization [facility] - [facility] Address [address] [place] [id number] Care Team Providers Name Role Phone Yunile Dailey Primary Care Provider Reason for Referral (Routine) Status Reason Specialty Diagnoses / Referred By Referred To Procedures Contact Contact New Request IM-GASTROENTEROLO Diagnoses Common bile duct dilatation SBP (spontaneous bacterial peritonitis) January Mahmood, GY Procedures Discharge Follow-Up: Specialty Service IM-GASTROENTEROLOGY; 2 Weeks [address] [place] [address] Radiology Services (Routine) Status Reason Specialty Diagnoses / Referred By Referred To Procedures Contact Contact New Request Diagnostic Diagnoses Bacteremia Kamana, Radiology Procedures IR PERIPHERALLY INSERTED DEVICE NON-TUNNELED PICC 5 OR OLDER IR VENOUS ACCESS MD Luna [address] [place] [address] Radiology Services (Routine) Status Reason Specialty Diagnoses / Referred By Referred To Procedures Contact Contact New Request Diagnostic Diagnoses Cough Albustami, Aravind, Radiology Procedures XR CHEST 2 [address] [place] [address] Radiology Services (Routine) Status Reason Specialty Diagnoses / Referred By Referred To Procedures Contact Contact New Request Diagnostic Diagnoses Alcoholic cirrhosis of liver with ascites Karan Scott, ELIJAH Radiology Procedures IR PARACENTESIS [address] [place] [address] Reason for Visit Reason Comments Auth/Cert Status Reason Specialty Diagnoses / Referred By Referred To Procedures Contact Contact [facility] [address] [place] [address] [place] [address] Encounter Details Date Type Department Care Team Description 05/12/2019 - [facility] Rashid Garibay MD [address] [place] [address] [address] [place] [address] Spontaneous 05/16/2019 Encounter Medicine/Surgery Aram Young MD [address] [place] [address] bacterial CLC 7B peritonitis [address] [place] [address] Allergies No Known Allergiesdocumented as of this encounter (statuses as of 05/16/2019) Medications Medication Sig Dispensed Refills Start Date End Date Status spironolactone 100 mg Take 1 tablet by 30 tablet 12 01/22/2019 Active tabletIndications: mouth daily. Chronic liver failure without hepatic coma Additional information Patient taking differently: 50 mg Oral BID, Reported on 04/30/2019 4:41 PM lactulose 10 gram/15 mL Take 30 mL by 500 mL 12 01/22/2019 Active solutionIndications: mouth 2 (two) Chronic liver failure times daily. without hepatic coma rifAXIMin (XIFAXAN) 550 mg Take 550 mg by 0 Active tablet mouth 2 (two) times daily. gabapentin ER 300 mg Take 300 mg by 0 Active tablet, extended release 24 mouth 2 (two) hr times daily as needed for Pain (scale 4-6). oagzsvpp-apco-UA-calcium-mi Take 1 tablet 0 Active ns 9 mg iron-400 mcg tablet by mouth daily. zinc sulfate (ZINC-220 Take by 0 Active ORAL) mouth. HYDROXYZINE HCL ORAL Take 50 mg by 0 Active mouth every 6 (six) hours as needed for Other (anxiety). ergocalciferol, vitamin d2, Take 50,000 0 Active (VITAMIN D2) 50,000 unit Units by mouth capsule weekly. escitalopram oxalate Take 20 mg by 0 Active (LEXAPRO) 20 mg tablet mouth daily. carisoprodol (SOMA) 350 mg Take 350 mg by 0 Active tablet mouth 4 (four) times daily as needed for Insomnia. folic acid 0.8 mg Cap Take 1 capsule 0 Active by mouth daily. sucralfate 100 mg/mL Take 10 mL by 480 mL 0 05/02/2019 Active suspensionIndications: mouth as Acute upper GI bleed needed (esophageal pain). cyclobenzaprine 5 mg Take 1 tablet 15 tablet 0 05/10/2019 Active tabletIndications: Leg by mouth 3 cramps, Hypomagnesemia (three) times daily. methocarbamol 500 mg Take 1 tablet 18 tablet 0 05/12/2019 Active tabletIndications: by mouth 3 Generalized abdominal pain, (three) times Fever, unspecified fever daily as cause needed for Pain (scale 1-3). furosemide 40 mg Take 1 tablet 90 tablet 0 05/17/2019 Active tabletIndications: Common by mouth bile duct dilatation, SBP daily. (spontaneous bacterial peritonitis) Magnesium 250 mg Take 1 tablet 270 tablet 0 05/16/2019 Active TabIndications: Common bile by mouth 3 duct dilatation, SBP (three) times (spontaneous bacterial daily. peritonitis) furosemide (LASIX) 20 mg Take 20 mg by 0 05/16/ Discontinued tablet mouth daily. 2020 Potassium 99 mg Take by mouth 0 05/16/ Discontinued TabIndications: morning and 2 (two) times 2020 evening daily. Indications: morning and evening magnesium, aluminum Take 250 mg by 0 05/16/ Discontinued hydroxide (MAG-AL mouth 2 (two) 2020 ORAL)Indications: morning times daily. and evening Indications: morning and evening documented as of this encounter (statuses as of 05/16/2019) Active Problems Problem Noted Date Spontaneous bacterial [...] as of this encounter (statuses as of 05/16/2019) Immunizations Name Administration Dates Next Due Influenza [...] Sign Reading Time Taken Comments Blood Pressure 121/76 05/16/2019 12:00 PM [employer] Pulse 78 05/16/2019 12:00 PM [employer] Temperature 36.9 C (98.4 F) 05/16/2019 12:00 PM [employer] Respiratory Rate 18 05/16/2019 12:00 PM [employer] Oxygen Saturation 98% 05/16/2019 12:00 PM [employer] Inhaled Oxygen Concentration - - Weight 81.6 kg (180 lb) 05/12/2019 6:49 PM [employer] Height 175.3 cm (5' 9") 05/12/2019 6:49 PM [employer] Body Mass Index 26.58 05/12/2019 6:49 PM [employer] documented in this encounter Discharge Summaries Aravind Anderson MD - 05/16/2019 2:35 PM CST CLS Team Discharge Summary Date of Service: 05/16/2019 ADMIT DATE: 05/12/2019 DISCHARGE DATE: 05/16/2019 ATTENDING MD: Aravind Anderson MD PCP: Yuniel Dailey REASON FOR ADMISSION Abd pain FINAL DIAGNOSIS: Spontaneous bacterial peritonitis. Klebsiella bacteremia. Sepsis Lactic acidosis: resolved. Ascites: paracentesis (460 cc drained). 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 Pulm edema, basal atelectasis and left pleural effusion. HypoMg. Active Problems: Spontaneous bacterial peritonitis (05/12/2019) POA: Yes Resolved Problems: * No resolved hospital problems. * Orders Placed This Encounter CONSULT GASTROENTEROLOGY CONSULT INFECTIOUS DISEASE No orders of the defined types were placed in this encounter. SIGNIFICANT LAB/X-RAYS: Recent Results (from the past 48 hour(s)) PROTHROMBIN TIME / INR Collection Time: 05/15/19 5:30 AM Result Value Ref Range PROTIME PATIENT 30.0 (H) 10.1 - 12.6 Seconds INR 2.7 BASIC METABOLIC PANEL (NA, K, CL, CO2, GLUCOSE, BUN, CREATININE, CA) Collection Time: 05/15/19 5:33 AM Result Value Ref Range NA 138 135 - 145 mmol/L K 4.5 3.5 - 5.0 mmol/L CL 105 98 - 108 mmol/L CO2 TOTAL 25 23 - 31 mmol/L AGAP 8 2 - 16 BUN 17 7 - 23 mg/dL GLUCOSE 131 (H) 70 - 110 mg/dL CREATININE 0.78 0.60 - 1.25 mg/dL CALCIUM 8.0 (L) 8.6 - 10.6 mg/dL eGFR Calculation (Non-) 108.1 mL/min/1.73m2 eGFR Calculation () 131.1 mL/min/1.73m2 MAGNESIUM Collection Time: 05/15/19 5:33 AM Result Value Ref Range MAGNESIUM 1.2 (L) 1.7 - 2.4 mg/dL AMMONIA, PLASMA Collection Time: 05/15/19 3:59 PM Result Value Ref Range AMMONIA 47 (H) 9 - 33 umol/L BASIC METABOLIC PANEL (NA, K, CL, CO2, GLUCOSE, BUN, CREATININE, CA) Collection Time: 05/16/19 4:01 AM Result Value Ref Range NA 137 135 - 145 mmol/L K 3.9 3.5 - 5.0 mmol/L CL 103 98 - 108 mmol/L CO2 TOTAL 23 23 - 31 mmol/L AGAP 11 2 - 16 BUN 17 7 - 23 mg/dL GLUCOSE 162 (H) 70 - 110 mg/dL CREATININE 0.84 0.60 - 1.25 mg/dL CALCIUM 8.3 (L) 8.6 - 10.6 mg/dL eGFR Calculation (Non-) 99.3 mL/min/1.73m2 eGFR Calculation () 120.3 mL/min/1.73m2 MAGNESIUM Collection Time: 05/16/19 4:01 AM Result Value Ref Range MAGNESIUM 1.5 (L) 1.7 - 2.4 mg/dL BASIC METABOLIC PANEL (NA, K, CL, CO2, GLUCOSE, BUN, CREATININE, CA) Collection Time: 05/16/19 1:35 PM Result Value Ref Range NA 135 135 - 145 mmol/L K 4.0 3.5 - 5.0 mmol/L CL 102 98 - 108 mmol/L CO2 TOTAL 23 23 - 31 mmol/L AGAP 10 2 - 16 BUN 16 7 - 23 mg/dL GLUCOSE 199 (H) 70 - 110 mg/dL CREATININE 0.72 0.60 - 1.25 mg/dL CALCIUM 7.9 (L) 8.6 - 10.6 mg/dL eGFR Calculation (Non-) 118.6 mL/min/1.73m2 eGFR Calculation () 143.7 mL/min/1.73m2 MAGNESIUM Collection Time: 05/16/19 1:35 PM Result Value Ref Range MAGNESIUM 2.2 1.7 - 2.4 mg/dL Ir Peripherally Inserted Device Non-tunneled Picc 5 Or Older Result Date: 05/16/2019 Successful right basilic power injectable PICC placement . HOSPITAL COURSE: 44 year old male patient with PMH of liver cirrhosis/ascites secondary to alcoholism transferred from outside facility to our hospital for higher level of care, patient initially presented to outside ER with fever and abdominal pain and confusion, he was treated with ABX and symptomatic treatment and improved and sent home but next day in the morning his blood culture came positive for gram negative bacilli and he was called to come back to the hospital. Patient has been complaining of intermittent abdominal pain which he described as Sharp and all over the place, he admitted that pain is 6-7/10 and it is aggravated with cough. He admitted to associated fever and chills but he denied any diarrheaor N&V, patient denied any headache or focal neurological symptoms. The patient started on IV Rocephin for positive blood Cx growing with Klebsiella. He was seen by ID and GI. Lasix dose was increased and Mg was replaced. His resolved with paracentesis (450 cc serous fluid drained, Cx negative) and IV Abx. PICC for IV Rocephin infusing daily for total 14 days. ITEMS FOR FOLLOW UP PROVIDER: (including pending labs/cultures/studies, anticipated problems, etc.) ID and GI in 1-2 weeks. FUNCTIONAL STATUS: fully ambulatory DISCHARGE CONDITION: good COGNITIVE STATUS: cognitively intact DISCHARGE INSTRUCTIONS: Discharge Orders Cardiac (2 gm Sodium, Low Fat, Low Cholesterol) Diet; Texture: Regular. Scheduling Instructions: Fluids <2 L daily. Texture Regular. Diabetic: No Other Modifiers: Fluid Restriction Discharge Condition - Discharge Condition: GOOD Discharge Activity Discharge Activity: Ambulate Discharge Follow-Up: Specialty Service IM-GASTROENTEROLOGY; 2 Weeks Specialty: IM-GASTROENTEROLOGY [10] Patient's Preferred Location: [facility] Discharge Disposition: HOME, (AHR) When (Patients with risk for unplanned readmission score over 16 or those noted as Hospital Dependent should follow up within 7 days with PCP or primary DX specialist): 2 Weeks Risk of Unplanned Readmission:( Score greater than 16 indicates high risk) 22 VTE Propylaxis- Was ordered during hospitalization Home Health Order Order Comments: I certify that Stuart Glass is under my care and that I, or a nurse practitioner or physician's electrician assistant working with me, had a [id number] encounter with this patient on: 05/16/2019. The encounter with Stuart Glass was in whole or in part, for the following medical condition(s), which is the primary reason for home health care: Spontaneous bacterial peritonitis I am ordering and certify that based on my findings the following services are medically necessary home health services: Evaluation and Treatment Senior Living Services: Wound Care, IV Therapy and Labs Rocephin 1000mg Q 24H for a total of 14 days. Labs: CBC, CMP weekly Standard PICC line care: Change Weekly & PRN, pull after last dose. Send Labs to Dr Del Toro PCP follow up: Yuniel Dailey My clinical findings support the need for the services listed above because: Wound Care: Open, draining, complex, non-healing wound(s) Further, I certify that my clinical findings support that this patient is homebound (i.e. absences from home require considerable and taxing effort and are for medical reasons or gnosticism services or infrequently or of short duration when for other reasons) because: IV Medication, labs and PICC line care I understand and acknowledge that this is not a valid order until it is authenticated by a medical provider who has authority within their Scope of Practice to do so. I am inputting this information in my capacity as a scribe. Halina Carpenter SHOPPER MEDICATIONS: Current Discharge Medication List START taking these medications Details Magnesium 1 tablet Take 1 tablet by mouth 3 (three) times daily. Qty: 270 tablet, Refills: 0 Start date: 05/16/2019 Associated Diagnoses: Common bile duct dilatation; SBP (spontaneous bacterial peritonitis) CONTINUE these medications which have CHANGED Details furosemide (LASIX) 40 mg Take 40 mg by mouth daily. Qty: 90 tablet, Refills: 0 Start date: 05/17/2019 Associated Diagnoses: Common bile duct dilatation; SBP (spontaneous bacterial peritonitis) CONTINUE these medications which have NOT CHANGED Details methocarbamol (ROBAXIN) 500 mg Take 500 mg by mouth 3 (three) times daily as needed for Pain (scale 1-3). Qty: 18 tablet, Refills: 0 Start date: 05/12/2019 Associated Diagnoses: Generalized abdominal pain; Fever, unspecified fever cause cyclobenzaprine (FLEXERIL) 5 mg Take 5 mg by mouth 3 (three) times daily. Qty: 15 tablet, Refills: 0 Associated Diagnoses: Leg cramps; Hypomagnesemia sucralfate (CARAFATE) 1,000 mg Take 1,000 mg by mouth as needed (esophageal pain ). Qty: 480 mL, Refills: 0 Associated Diagnoses: Acute upper GI bleed carisoprodoL (SOMA) 350 mg Take 350 mg by mouth 4 (four) times daily as needed for Insomnia. ergocalciferol (vitamin d2) (CALCIFEROL) 50,000 Units Take 50,000 Units by mouth weekly. escitalopram oxalate (LEXAPRO) 20 mg Take 20 mg by mouth daily. folic acid (FA-8) 1 capsule Take 1 capsule by mouth daily. gabapentin ER (GRALISE) 300 mg Take 300 mg by mouth 2 (two) times daily as needed for Pain (scale 4-6). HYDROXYZINE HCL ORAL 50 mg Take 50 mg by mouth every 6 (six) hours as needed for Other (anxiety). aabyipir-gbxi-LV-calcium-mins (THERA-M) 1 tablet Take 1 tablet by mouth daily. rifAXIMin (XIFAXAN) 550 mg Take 550 mg by mouth 2 (two) times daily. zinc sulfate (ZINC-220 ORAL) Take by mouth. lactulose (CEPHULAC) 30 mL Take 30 mL by mouth 2 (two) times daily. Qty: 500 mL, Refills: 12 Associated Diagnoses: Chronic liver failure without hepatic coma spironolactone (ALDACTONE) 100 mg Take 100 mg by mouth daily. Qty: 30 tablet, Refills: 12 Associated Diagnoses: Chronic liver failure without hepatic coma STOP taking these medications magnesium, aluminum hydroxide (MAG-AL ORAL) 250 mg Comments: Reason for Stopping: Potassium 99 mg Tab Comments: Reason for Stopping: WOUND CARE: CODE STATUS: full code OXYGEN (is patient being discharged on oxygen): no PATIENT EDUCATION PROVIDED: Fluid restriction <2 L daily. DISCHARGE: home self care FOLLOW-UP APPOINTMENT: as above. PLAN FOR READMISSION: No Please call or text [phone] to contact Aravind Anderson MD with any questions. - documented in this encounter Progress Notes Halina Carpenter RN - 05/16/2019 12:05 PM MANAGER DATA [employer]AREHOUSING Stuart Glass [id number] 1975 RE: Care Management Patient Choice Notification Your doctor has recommended that you have post-hospital care services at discharge. You can choose the provider you want, regardless of its relationship with [facility]. We will contact any of the agencieswithin the [facility] network, or any other agency upon your request. The hospital must assist patients, their families, or the patients technical sales representative in selecting a post- acute care provider by using and sharing data that includes, but is not limited to, Home Health Agencies, Senior Living Facilities, Inpatient Rehab, or Hearing Aid Dispenser Acute Care, Long-Term data on quality measures and data on resource use measures. Based on where you live and agency service areas, a list was generated from: Your insurance company's in-network provider list Disclosure: [facility] owns or is affiliated with the following facilities/agencies: [facility] (chcf and rehabilitation) Patient Choice Acknowledgement I, Stuart Glass / authorized technical sales representative, am aware that I have choice in selecting post-hospital care providers. [facility] has given me a list of providers in the area available to me and/or myauthorized technical sales representative. My choice(s) are listed below: ? HH: [facility], [facility] Your signature on this form indicates that you have been given the following information: I have been advised of my right to choose the providers I wish ? If chcf facilities, long-term acute care hospitals, or home health agencies were recommended, I was given a list of facilities/agencies in my geographic area that deliver these services or ? I have pre-selected or am an established client with a facility/agency and choose to initiate/continue services 05/16/19 Patient/Guardian/Responsible Constitution Party Signature Date Signed copy placed on chart to be scanned into Electronic Medical Record Halina Kenyon RN - 05/16/2019 12:03 PM CSTCARE MANAGEMENT NOTE Spoke with patient and spouse about need for IV Abx, they want to do all IV abx at home. Gave them options of [facility] clinic but patient does not want to come in weekly. Gave them options of [facility], [facility] and [facility] which are his in network providers. Pt and spouse have chosen [facility].Referral faxed for DC today. Halina Carpenter RN, BSN, CRRN Electric Cell Tender [facility] Luna White MD - 05/16/2019 11:48 AM CST [facility] Progress Note F/u bacteremia Subjective Doing better Physical Exam: BP 136/76 | Pulse 81 | Temp 37.3 C (99.1 F) (Tympanic) | Resp 18 | Ht 1.753 m (5' 9") | Wt 81.6 kg (180 lb) | SpO2 94% | BMI 26.58 kg/m General Appearance: alert, appears stated age and cooperative Head: Normocephalic, without obvious abnormality, atraumatic Eyes: conjunctivae/corneas clear. PERRL, EOM's intact. Fundi benign. Nose: Nares normal. Septum midline. Mucosa normal. No drainage or sinus tenderness. Throat: lips, mucosa, and tongue normal; teeth and gums normal Neck: no adenopathy, no carotid bruit, no JVD, supple Back: symmetric, no curvature. ROM normal. Lungs: clear to auscultation bilaterally Chest Wall: no tenderness Heart: regular rate and rhythm, S1, S2 normal, no murmur, click, rub or gallop Abdomen: soft, non-tender; bowel sounds normal; no masses, no organomegaly, + tenderness better, ascites Extremities: extremities normal, atraumatic, no cyanosis or edema Musculoskeletal: No joint pains or swelling Skin: Skin color, texture, turgor normal. No rashes or lesions. +jaundice Neurologic: Alert and oriented X 3, with clear speech Medications Current Facility-Administered Medications Medication Dose Route Frequency Last Rate Last Dose ondansetron (ZOFRAN (PF)) injection 4 mg 4 mg Slow IV Push Q6HPRN furosemide (LASIX) tablet 40 mg 40 mg Oral DAILY 40 mg at 05/16/19 0847 morpHINE injection 4 mg 4 mg Slow IV Push Q4HPRN 4 mg at 05/16/19 0400 rifAXIMin (XIFAXAN) tablet 550 mg 550 mg Oral BID 550 mg at 05/16/19 0846 spironolactone (ALDACTONE) tablet 100 mg 100 mg Oral DAILY 100 mg at 0846 acetaminophen (TYLENOL) tablet 650 mg 650 mg Oral Q6HPRN carisoprodoL (SOMA) tablet 350 mg 350 mg Oral QIDPRN 350 mg at 05/15/19 2134 cefTRIAXone (ROCEPHIN) 1,000 mg in NaCl 0.9% (NS) 50 mL MINI-BAG 1,000 mg IV Piggyback Q24H ABX 1,000 mg at 05/15/19 1602 ergocalciferol (vitamin d2) (CALCIFEROL) capsule 50,000 Units 50,000 Units Oral QWEEKLY 50,000 Units at 05/13/19 0830 escitalopram oxalate (LEXAPRO) tablet 20 mg 20 mg Oral DAILY 20 mg at 0847 hydrOXYzine (ATARAX) tablet 50 mg 50 mg Oral Q6HPRN lactulose (CEPHULAC) solution 30 mL 30 mL Oral BID 30 mL at 05/16/19 0846 LORazepam (ATIVAN) tablet 0.5 mg 0.5 mg Oral QIDPRN 0.5 mg at 05/16/19 0854 Magnesium Tab 1 tablet 1 tablet Oral BID 1 tablet at 05/16/19 0854 methocarbamol (ROBAXIN) tablet 500 mg 500 mg Oral TID 500 mg at 05/16/19 0847 Labs/Radiology Recent Results (from the past 48 hour(s)) PROTHROMBIN TIME / INR Collection Time: 05/15/19 5:30 AM Result Value Ref Range PROTIME PATIENT 30.0 (H) 10.1 - 12.6 Seconds INR 2.7 BASIC METABOLIC PANEL (NA, K, CL, CO2, GLUCOSE, BUN, CREATININE, CA) Collection Time: 05/15/19 5:33 AM Result Value Ref Range NA 138 135 - 145 mmol/L K 4.5 3.5 - 5.0 mmol/L CL 105 98 - 108 mmol/L CO2 TOTAL 25 23 - 31 mmol/L AGAP 8 2 - 16 BUN 17 7 - 23 mg/dL GLUCOSE 131 (H) 70 - 110 mg/dL CREATININE 0.78 0.60 - 1.25 mg/dL CALCIUM 8.0 (L) 8.6 - 10.6 mg/dL eGFR Calculation (Non-) 108.1 mL/min/1.73m2 eGFR Calculation () 131.1 mL/min/1.73m2 MAGNESIUM Collection Time: 05/15/19 5:33 AM Result Value Ref Range MAGNESIUM 1.2 (L) 1.7 - 2.4 mg/dL AMMONIA, PLASMA Collection Time: 05/15/19 3:59 PM Result Value Ref Range AMMONIA 47 (H) 9 - 33 umol/L BASIC METABOLIC PANEL (NA, K, CL, CO2, GLUCOSE, BUN, CREATININE, CA) Collection Time: 05/16/19 4:01 AM Result Value Ref Range NA 137 135 - 145 mmol/L K 3.9 3.5 - 5.0 mmol/L CL 103 98 - 108 mmol/L CO2 TOTAL 23 23 - 31 mmol/L AGAP 11 2 - 16 BUN 17 7 - 23 mg/dL GLUCOSE 162 (H) 70 - 110 mg/dL CREATININE 0.84 0.60 - 1.25 mg/dL CALCIUM 8.3 (L) 8.6 - 10.6 mg/dL eGFR Calculation (Non-) 99.3 mL/min/1.73m2 eGFR Calculation () 120.3 mL/min/1.73m2 MAGNESIUM Collection Time: 05/16/19 4:01 AM Result Value Ref Range MAGNESIUM 1.5 (L) 1.7 - 2.4 mg/dL Xr Chest 2 Vw Result Date: 05/14/2019 .IMPRESSION: 1. Blunting of the left costophrenic angle probably represents a combination of atelectasis and pleural effusion. Ir Peripherally Inserted Device Non-tunneled Picc 5 Or Older Result Date: 05/16/2019 Successful right basilic power injectable PICC placement . Diagnoses Active Problems: Spontaneous bacterial peritonitis 1. Possible Spontaneous bacterial peritonitis S/p paracentesis 05/14:450cc serous fluid drained Fluid cx pending Fluid cx WBC 3,297, RBC <3K, macrophage 37% lymphs 3% 2. Bacteremia with Klebsiella Source from liver 3. Lactic acidosis 4. Alcholic liver cirrhosis On transplant list Plan Continue rocephin 1gm IV Q 24 hrs for 14 days Picc line placed 05/15 Follow fluid culture Refer to [facility], [facility]; for rocephin 1gm IV q24hrs for 10 days Follow up in office Length of Stay: 4 Aravind Holden MD - 05/16/2019 10:54 AM CST CLS Progress Note Date of Service: 05/16/2019 10:54 Chief Complaint: Abd pain. SUBJECTIVE: SOB and wheezing: resolved. No N/V/D or abd pain. No f/c/r or CP. No LL edema. S/p IR paracentesis (460 cc drained): May 14. PHYSICAL EXAM: Vitals: 05/15/19 2000 05/16/19 0000 05/16/19 0400 05/16/19 0800 BP: 112/58 110/62 122/79 136/76 Pulse: 79 74 87 81 Resp: 18 16 18 18 Temp: 36.6 C (97.9 F) 36.6 C (97.8 F) 36.7 C (98 F) 37.3 C (99.1 F) TempSrc: Tympanic Tympanic Tympanic Tympanic SpO2: 95% 95% 98% 94% Weight: Height: O2 Sat: SpO2 readings for the past 24 hrs: SpO2 05/12/19 1349 100 % 05/12/19 1400 95 % 05/12/19 1425 97 % 05/12/19 1500 97 % 05/12/19 1600 97 % 05/12/19 1700 97 % 05/12/19 1815 95 % 05/12/19 2000 97 % 05/13/19 0000 96 % 05/13/19 0400 97 % 05/13/19 0800 93 % 05/13/19 1200 95 % Intake/Output Summary (Last 24 hours) at 05/16/2019 1054 Last data filed at 05/16/2019 0800 Gross per 24 hour Intake 460 ml Output Net 460 ml On RA. General: alert and oriented x4; no apparent distress HEENT: pupils equal, round; extraocular movements intact; oropharynx clear; moist mucous membranes Lungs: Auscultation bilaterally: crackles and wheezes, cough is strong and effective. Cardio: regular rate and rhythm, no murmurs, no gallops Abdomen: soft; non-tender; non-distended; normoactive bowel sounds. Small ascites left after paracentesis (460 cc drained). Extremities: no cyanosis, clubbing or edema. TAWER: nonfocal. LABS/IMAGING - reviewed, pertinent results as below: Recent Results (from the past 48 hour(s)) PROTHROMBIN TIME / INR Collection Time: 05/15/19 5:30 AM Result Value Ref Range PROTIME PATIENT 30.0 (H) 10.1 - 12.6 Seconds INR 2.7 BASIC METABOLIC PANEL (NA, K, CL, CO2, GLUCOSE, BUN, CREATININE, CA) Collection Time: 05/15/19 5:33 AM Result Value Ref Range NA 138 135 - 145 mmol/L K 4.5 3.5 - 5.0 mmol/L CL 105 98 - 108 mmol/L CO2 TOTAL 25 23 - 31 mmol/L AGAP 8 2 - 16 BUN 17 7 - 23 mg/dL GLUCOSE 131 (H) 70 - 110 mg/dL CREATININE 0.78 0.60 - 1.25 mg/dL CALCIUM 8.0 (L) 8.6 - 10.6 mg/dL eGFR Calculation (Non-) 108.1 mL/min/1.73m2 eGFR Calculation () 131.1 mL/min/1.73m2 MAGNESIUM Collection Time: 05/15/19 5:33 AM Result Value Ref Range MAGNESIUM 1.2 (L) 1.7 - 2.4 mg/dL AMMONIA, PLASMA Collection Time: 05/15/19 3:59 PM Result Value Ref Range AMMONIA 47 (H) 9 - 33 umol/L BASIC METABOLIC PANEL (NA, K, CL, CO2, GLUCOSE, BUN, CREATININE, CA) Collection Time: 05/16/19 4:01 AM Result Value Ref Range NA 137 135 - 145 mmol/L K 3.9 3.5 - 5.0 mmol/L CL 103 98 - 108 mmol/L CO2 TOTAL 23 23 - 31 mmol/L AGAP 11 2 - 16 BUN 17 7 - 23 mg/dL GLUCOSE 162 (H) 70 - 110 mg/dL CREATININE 0.84 0.60 - 1.25 mg/dL CALCIUM 8.3 (L) 8.6 - 10.6 mg/dL eGFR Calculation (Non-) 99.3 mL/min/1.73m2 eGFR Calculation () 120.3 mL/min/1.73m2 MAGNESIUM Collection Time: 05/16/19 4:01 AM Result Value Ref Range MAGNESIUM 1.5 (L) 1.7 - 2.4 mg/dL Xr Chest 2 Vw Result Date: 05/14/2019 .IMPRESSION: 1. Blunting of the left costophrenic angle probably represents a combination of atelectasis and pleural effusion. Ir Peripherally Inserted Device Non-tunneled Picc 5 Or Older Result Date: 05/16/2019 Successful right basilic power injectable PICC placement . CURRENT MEDICATIONS - reviewed. Current Facility-Administered Medications Medication Dose Route Frequency Last Rate Last Dose magnesium sulfate in water 4 gram/50 mL (8 %) IV Piggyback 4 g 4 g IV Piggyback ONCE ondansetron (ZOFRAN (PF)) injection 4 mg 4 mg Slow IV Push Q6HPRN furosemide (LASIX) tablet 40 mg 40 mg Oral DAILY 40 mg at 05/16/19 0847 morpHINE injection 4 mg 4 mg Slow IV Push Q4HPRN 4 mg at 05/16/19 0400 rifAXIMin (XIFAXAN) tablet 550 mg 550 mg Oral BID 550 mg at 05/16/19 0846 spironolactone (ALDACTONE) tablet 100 mg 100 mg Oral DAILY 100 mg at 0846 acetaminophen (TYLENOL) tablet 650 mg 650 mg Oral Q6HPRN carisoprodoL (SOMA) tablet 350 mg 350 mg Oral QIDPRN 350 mg at 05/15/19 2134 cefTRIAXone (ROCEPHIN) 1,000 mg in NaCl 0.9% (NS) 50 mL MINI-BAG 1,000 mg IV Piggyback Q24H ABX 1,000 mg at 05/15/19 1602 ergocalciferol (vitamin d2) (CALCIFEROL) capsule 50,000 Units 50,000 Units Oral QWEEKLY 50,000 Units at 05/13/19 0830 escitalopram oxalate (LEXAPRO) tablet 20 mg 20 mg Oral DAILY 20 mg at 0847 hydrOXYzine (ATARAX) tablet 50 mg 50 mg Oral Q6HPRN lactulose (CEPHULAC) solution 30 mL 30 mL Oral BID 30 mL at 05/16/19 0846 LORazepam (ATIVAN) tablet 0.5 mg 0.5 mg Oral QIDPRN 0.5 mg at 05/16/19 0854 Magnesium Tab 1 tablet 1 tablet Oral BID 1 tablet at 05/16/19 0854 methocarbamol (ROBAXIN) tablet 500 mg 500 mg Oral TID 500 mg at 05/16/19 0847 EF 60% with diastolic dysfunction. (October 2018). ASSESSMENT/PLAN Stuart Glass is a 44 year old male admitted to the hospital with: Spontaneous bacterial peritonitis. Klebsiella bacteremia. Sepsis Lactic acidosis: resolved. Ascites: paracentesis (460 cc drained). 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 Pulm edema, basal atelectasis and ?left pleural effusion. HypoMg. PLAN: Seen by ID. Abx infusion for 2 weeks. S/p PICC line. Pending insurance approval. I/S. Oral Lasix and Aldactone. Am labs. Abx. F/u Cx. Fluid restriction <2 L daily. D/w family. Seen by GI consult. replace Mg. Increase activity. Most recent hemoglobin A1c level: NA Advance Care Planning discussed and documented; advance care plan or surrogate decision maker documented in the medical record: full code, . Pain Assessment Documented as Negative, No Follow-Up Plan Required Patient treated with a beta-lactam antibiotic as definitive therapy MSSA bacteremia: NA Patients with Primary Headache Diagnosis and Imaging of the Head was Obtained: NA Medications were reviewed. [facility]ravind Anderson MD, [facility] [phone] lAravind zurita MD - 05/15/2019 10:43 AM CST CLS Progress Note Date of Service: 05/15/2019 10:43 Chief Complaint: Abd pain. SUBJECTIVE: SOB and wheezing: resolved. No N/V/D or abd pain. No f/c/r or CP. No LL edema. S/p IR paracentesis (460 cc drained): May 14. PHYSICAL EXAM: Vitals: 05/14/19200905/15/19 0000 05/15/19 0400 05/15/19 0750 BP: 115/52 121/74 112/62 103/66 Pulse: 79 85 76 75 Resp: 18 18 18 18 Temp: 36.7 C (98.1 F) 36.9 C (98.4 F) 36.3 C (97.3 F) 36 C (96.8 F) TempSrc: Tympanic Tympanic Tympanic Tympanic SpO2: 98% 96% 95% 97% Weight: Height: O2 Sat: SpO2 readings for the past 24 hrs: SpO2 05/12/19 1349 100 % 05/12/19 1400 95 % 05/12/19 1425 97 % 05/12/19 1500 97 % 05/12/19 1600 97 % 05/12/19 1700 97 % 05/12/19 1815 95 % 05/12/19 2000 97 % 05/13/19 0000 96 % 05/13/19 0400 97 % 05/13/19 0800 93 % 05/13/19 1200 95 % No intake or output data in the 24 hours ending 05/15/19 1043 On RA. General: alert and oriented x4; no apparent distress HEENT: pupils equal, round; extraocular movements intact; oropharynx clear; moist mucous membranes Lungs: Auscultation bilaterally: crackles and wheezes, cough is strong and effective. Cardio: regular rate and rhythm, no murmurs, no gallops Abdomen: soft; non-tender; non-distended; normoactive bowel sounds. Small ascites left after paracentesis (460 cc drained). Extremities: no cyanosis, clubbing or edema. TAWER: nonfocal. LABS/IMAGING - reviewed, pertinent results as below: Recent Results (from the past 48 hour(s)) BODY FLUID CULTURE(AEROBIC/ANAEROBIC) Collection Time: 05/14/19 8:39 AM Result Value Ref Range Gram stain No Organisms seen Gram stain Few Polymorphonuclear leukocytes BODY FLUID DIRECT COUNT Collection Time: 05/14/19 8:39 AM Result Value Ref Range BF COLOR Yellow TURBIDITY Turbid BF WBC Count 3,297 /L BF RBC Count <3,000 /L BODY FLUID MANUAL DIFF Collection Time: 05/14/19 8:39 AM Result Value Ref Range BF SEGS 58 % BF LYMPHS 3 % MACROPHAGE 37 % MESOS 2 % #CELS CNTD 100 PROTHROMBIN TIME / INR Collection Time: 05/15/19 5:30 AM Result Value Ref Range PROTIME PATIENT 30.0 (H) 10.1 - 12.6 Seconds INR 2.7 BASIC METABOLIC PANEL (NA, K, CL, CO2, GLUCOSE, BUN, CREATININE, CA) Collection Time: 05/15/19 5:33 AM Result Value Ref Range NA 138 135 - 145 mmol/L K 4.5 3.5 - 5.0 mmol/L CL 105 98 - 108 mmol/L CO2 TOTAL 25 23 - 31 mmol/L AGAP 8 2 - 16 BUN 17 7 - 23 mg/dL GLUCOSE 131 (H) 70 - 110 mg/dL CREATININE 0.78 0.60 - 1.25 mg/dL CALCIUM 8.0 (L) 8.6 - 10.6 mg/dL eGFR Calculation (Non-) 108.1 mL/min/1.73m2 eGFR Calculation () 131.1 mL/min/1.73m2 MAGNESIUM Collection Time: 05/15/19 5:33 AM Result Value Ref Range MAGNESIUM 1.2 (L) 1.7 - 2.4 mg/dL Xr Chest 2 Vw Result Date: 05/14/2019 .IMPRESSION: 1. Blunting of the left costophrenic angle probably represents a combination of atelectasis and pleural effusion. CURRENT MEDICATIONS - reviewed. Current Facility-Administered Medications Medication Dose Route Frequency Last Rate Last Dose ondansetron (ZOFRAN (PF)) injection 4 mg 4 mg Slow IV Push Q6HPRN furosemide (LASIX) tablet 40 mg 40 mg Oral DAILY 40 mg at 05/15/19 0933 morpHINE injection 4 mg 4 mg Slow IV Push Q4HPRN 4 mg at 05/15/19 0552 rifAXIMin (XIFAXAN) tablet 550 mg 550 mg Oral BID 550 mg at 05/15/19 0927 spironolactone (ALDACTONE) tablet 100 mg 100 mg Oral DAILY 100 mg at 0933 acetaminophen (TYLENOL) tablet 650 mg 650 mg Oral Q6HPRN carisoprodoL (SOMA) tablet 350 mg 350 mg Oral QIDPRN cefTRIAXone (ROCEPHIN) 1,000 mg in NaCl 0.9% (NS) 50 mL MINI-BAG 1,000 mg IV Piggyback Q24H ABX 1,000 mg at 05/14/19 1414 ergocalciferol (vitamin d2) (CALCIFEROL) capsule 50,000 Units 50,000 Units Oral QWEEKLY 50,000 Units at 05/13/19 0830 escitalopram oxalate (LEXAPRO) tablet 20 mg 20 mg Oral DAILY 20 mg at 09 hydrOXYzine (ATARAX) tablet 50 mg 50 mg Oral Q6HPRN lactulose (CEPHULAC) solution 30 mL 30 mL Oral BID 30 mL at 05/15/19926 LORazepam (ATIVAN) tablet 0.5 mg 0.5 mg Oral QIDPRN 0.5 mg at 05/15/19 0126 Magnesium Tab 1 tablet 1 tablet Oral BID 1 tablet at 05/15/19926 methocarbamol (ROBAXIN) tablet 500 mg 500 mg Oral TID 500 mg at 05/15/19926 EF 60% with diastolic dysfunction. (October 2018). ASSESSMENT/PLAN Stuart Glass is a 44 year old male admitted to the hospital with: Spontaneous bacterial peritonitis. Klebsiella bacteremia. Sepsis Lactic acidosis: resolved. Ascites: paracentesis (460 cc drained). 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 Pulm edema, basal atelectasis and ?left pleural effusion. HypoMg. PLAN: Consult ID. IV lasix x1 once. I/S. Oral Lasix and Aldactone. Am labs. Abx. F/u Cx. Fluid restriction <2 L daily. D/w family. Seen by GI consult. replace Mg. Increase activity. Most recent hemoglobin A1c level: NA Advance Care Planning discussed and documented; advance care plan or surrogate decision maker documented in the medical record: full code, . Pain Assessment Documented as Negative, No Follow-Up Plan Required Patient treated with a beta-lactam antibiotic as definitive therapy MSSA bacteremia: NA Patients with Primary Headache Diagnosis and Imaging of the Head was Obtained: NA Medications were reviewed. Aravind Anderson MD, [facility]. [phone] lAravind zurita MD - 05/14/2019 1:59 PM CST CLS Progress Note Date of Service: 05/14/2019 13:59 Chief Complaint: Abd pain. SUBJECTIVE: SOB and wheezing. No N/V/D or abd pain. No f/c/r or CP. No LL edema. S/p IR paracentesis (460 cc drained). PHYSICAL EXAM: Vitals: 05/14/19 0800 05/14/19 0904 05/14/19 0917 05/14/19 1100 BP: 111/67 (!) 145/89 132/77 130/81 Pulse: 81 88 86 87 Resp: 18 18 Temp: 36.8 C (98.2 F) 36.7 C (98 F) TempSrc: Tympanic Tympanic SpO2: 95% 96% 96% 95% Weight: Height: O2 Sat: SpO2 readings for the past 24 hrs: SpO2 05/12/19 1349 100 % 05/12/19 1400 95 % 05/12/19 1425 97 % 05/12/19 1500 97 % 05/12/19 1600 97 % 05/12/19 1700 97 % 05/12/19 1815 95 % 05/12/19 2000 97 % 05/13/19 0000 96 % 05/13/19 0400 97 % 05/13/19 0800 93 % 05/13/19 1200 95 % No intake or output data in the 24 hours ending 05/14/19 1359 On RA. General: alert and oriented x4; no apparent distress HEENT: pupils equal, round; extraocular movements intact; oropharynx clear; moist mucous membranes Lungs: Auscultation bilaterally: crackles and wheezes, cough is strong and effective. Cardio: regular rate and rhythm, no murmurs, no gallops Abdomen: soft; non-tender; non-distended; normoactive bowel sounds. Small ascites left after paracentesis (460 cc drained). Extremities: no cyanosis, clubbing or edema. TAWER: nonfocal. LABS/IMAGING - reviewed, pertinent results as below: Recent Results (from the past 48 hour(s)) aPTT Collection Time: 05/12/19 3:15 PM Result Value Ref Range APTT Patient 44 (H) 23 - 38 Seconds Prothrombin Time (PT) / INR Collection Time: 05/12/19 3:15 PM Result Value Ref Range PROTIME PATIENT 26.6 (H) 12.0 - 14.7 Seconds INR 2.6 Lactic Acid Whole Blood Collection Time: 05/12/19 10:40 PM Result Value Ref Range LACTIC ACID 2.17 0.50 - 2.20 mmol/L COMP. METABOLIC PANEL (53226) Collection Time: 05/13/19 9:08 AM Result Value Ref Range NA 137 135 - 145 mmol/L K 4.1 3.5 - 5.0 mmol/L CL 109 (H) 98 - 108 mmol/L CO2 TOTAL 19 (L) 23 - 31 mmol/L AGAP 9 2 - 16 BUN 22 7 - 23 mg/dL GLUCOSE 210 (H) 70 - 110 mg/dL CREATININE 0.91 0.60 - 1.25 mg/dL TOTAL BILI 3.1 (H) 0.1 - 1.1 mg/dL CALCIUM 8.0 (L) 8.6 - 10.6 mg/dL T PROTEIN 5.6 (L) 6.3 - 8.2 g/dL ALBUMIN 2.1 (L) 3.5 - 5.0 g/dL ALK PHOS 186 (H) 34 - 122 U/L ALTv 60 (H) 5 - 50 U/L AST(SGOT) 52 (H) 13 - 40 U/L eGFR Calculation (Non-) 90.5 mL/min/1.73m2 eGFR Calculation () 109.7 mL/min/1.73m2 BODY FLUID DIRECT COUNT Collection Time: 05/14/19 8:39 AM Result Value Ref Range BF COLOR Yellow TURBIDITY Turbid BF WBC Count 3,297 /L BF RBC Count <3,000 /L BODY FLUID MANUAL DIFF Collection Time: 05/14/19 8:39 AM Result Value Ref Range BF SEGS 58 % BF LYMPHS 3 % MACROPHAGE 37 % MESOS 2 % #CELS CNTD 100 Xr Chest 2 Vw Result Date: 05/14/2019 .IMPRESSION: 1. Blunting of the left costophrenic angle probably represents a combination of atelectasis and pleural effusion. CURRENT MEDICATIONS - reviewed. Current Facility-Administered Medications Medication Dose Route Frequency Last Rate Last Dose furosemide (LASIX) injection 40 mg 40 mg Slow IV Push ONCE ondansetron (ZOFRAN (PF)) injection 4 mg 4 mg Slow IV Push Q6HPRN furosemide (LASIX) tablet 40 mg 40 mg Oral DAILY 40 mg at 05/14/19 0931 morpHINE injection 4 mg 4 mg Slow IV Push Q4HPRN 4 mg at 05/14/19 0932 rifAXIMin (XIFAXAN) tablet 550 mg 550 mg Oral BID 550 mg at 05/14/19 0931 spironolactone (ALDACTONE) tablet 100 mg 100 mg Oral DAILY 100 mg at 0931 acetaminophen (TYLENOL) tablet 650 mg 650 mg Oral Q6HPRN carisoprodoL (SOMA) tablet 350 mg 350 mg Oral QIDPRN cefTRIAXone (ROCEPHIN) 1,000 mg in NaCl 0.9% (NS) 50 mL MINI-BAG 1,000 mg IV Piggyback Q24H ABX 1,000 mg at 05/13/19 1407 ergocalciferol (vitamin d2) (CALCIFEROL) capsule 50,000 Units 50,000 Units Oral QWEEKLY 50,000 Units at 05/13/19 0830 escitalopram oxalate (LEXAPRO) tablet 20 mg 20 mg Oral DAILY 20 mg at 0931 HYDROcodone-acetaminophen (NORCO 5) 5-325 mg tablet 1 tablet 1 tablet Oral Q6HPRN 1 tablet at05/13/192032 hydrOXYzine (ATARAX) tablet 50 mg 50 mg Oral Q6HPRN lactulose (CEPHULAC) solution 30 mL 30 mL Oral BID 30 mL at 05/14/19930 LORazepam (ATIVAN) tablet 0.5 mg 0.5 mg Oral QIDPRN 0.5 mg at 05/13/192032 Magnesium Tab 1 tablet 1 tablet Oral BID 1 tablet at 05/14/19 1000 methocarbamol (ROBAXIN) tablet 500 mg 500 mg Oral TID 500 mg at 05/14/19930 EF 60% with diastolic dysfunction. (October 2018). ASSESSMENT/PLAN Stuart Glass is a 44 year old male admitted to the hospital with: Spontaneous bacterial peritonitis. Klebsiella bacteremia. Sepsis Lactic acidosis: resolved. Ascites: paracentesis (460 cc drained). 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 Pulm edema, basal atelectasis and ?left pleural effusion. PLAN: Consult ID. IV lasix x1 once. I/S. Oral Lasix and Aldactone. Am labs. Abx. F/u Cx. Fluid restriction <2 L daily. D/w family. Seen by GI consult Most recent hemoglobin A1c level: NA Advance Care Planning discussed and documented; advance care plan or surrogate decision maker documented in the medical record: full code, . Pain Assessment Documented as Negative, No Follow-Up Plan Required Patient treated with a beta-lactam antibiotic as definitive therapy MSSA bacteremia: NA Patients with Primary Headache Diagnosis and Imaging of the Head was Obtained: NA Medications were reviewed. Aravind Anderson MD, [facility] [phone] ohana Elam V [facility] [place] - 05/13/2019 2:44 PM CSTCare Management Social Functional Assessment Patient Name: Stuart Glass Age: [age] year old Sex: male Patient's Previous Admission Date at [facility]: 04/30/2019 Current diagnosis and co-morbidities: ascities Readmission Questions: Was patient discharged from any acute care hospital within the last 30 days: Yes Were all questions regarding previous illness/diagnosis answered prior to discharge: Yes Did you have any difficulties with your discharge instructions: No Were you able to go to your follow-up discharge appointments: Yes Any difficulties after discharge with medications: No Any difficulties after discharge with transportation: No Any difficulties after discharge with physical conditions, support, or other limitations?: No Did patient refuse services that were recommended on the previous admission: No Was patient non-compliant with the previously recommended treatment: No If admitted from the ED did you call your primary MD or place a sick call/ request with your provider?: N/A Social Functional Assessment: Primary language spoken/preferred: Comoran Mental Status: Alert & Oriented to Person, Place Information given by: Self Patient's support system: Spouse Name and number of support system: Benjamin Singh [phone] Primary Manager Contact: Self MPOA: No Living Arrangement: Apartment Address of living arrangement : [facility] [address] [place] [phone] Persons living in home: Self;Same as support system Barriers to returning home: None Baseline functional status- ambulation: Independent Functional status-baseline personal care: Independent Baseline functional status- driving: Independent Baseline functional status- grocery shopping: Independent Functional status-baseline housekeeping: Independent Functional status-baseline meal prep: Independent Current functional status same as prior: Yes Do you have a PCP?: Yes Name of PCP: Yuniel [facility] Agency: No Provider Services: No DME Company: No Equipment: None Community resources utilized: None Funding Resources: Medicare Replacement Medicare Replacement name and information: [facility] Prescription coverage plan: Medicare Part D Pharmacy where meds are filled: Other Anticipated services prior to disharge: Continue Medical Eval Expected mode of discharge transportation: Same as support system Additional info required for discharge planning: Pending medical evaluation Recommended discharge plan: Home Patient stated that he plans to return home with his spouse, Benjamin Hernandez upon discharge. Patient stated that his spouse will also provide him with transportation. Patient stated that he stopped drinking alcohol in October 2018 and declined substance abuse resources. SFA Complete: Social Functional Assessment complete: Yes Alcohol Use Screening (AUDIT-C) How often do you have a drink containing alcohol?: Never SCORE: 0 Did patient elect to have resources provided: No Actions taken: Provided support Role of Care Management explained. Johana Elam LMSW [employer]/Care Management u Noni Berrios MD - 05/13/2019 12:57 PM CST CLS Progress Note Date of Service: 05/13/2019 12:57 Chief Complaint: Abd pain. SUBJECTIVE: PHYSICAL EXAM: Vitals: 05/13/19 0400 05/13/19 0800 05/13/19 1043 05/13/19 1200 BP: (!) 141/81 104/52 120/70 123/66 Pulse: 95 91 92 93 Resp: 17 16 18 Temp: 35.8 C (96.4 F) 36.7 C (98.1 F) 37.2 C (98.9 F) TempSrc: Tympanic Tympanic Tympanic SpO2: 97% 93% 95% Weight: Height: O2 Sat: SpO2 readings for the past 24 hrs: SpO2 05/12/19 1349 100 % 05/12/19 1400 95 % 05/12/19 1425 97 % 05/12/19 1500 97 % 05/12/19 1600 97 % 05/12/19 1700 97 % 05/12/19 1815 95 % 05/12/19 2000 97 % 05/13/19 0000 96 % 05/13/19 0400 97 % 05/13/19 0800 93 % 05/13/19 1200 95 % Intake/Output Summary (Last 24 hours) at 05/13/2019 1257 Last data filed at 05/13/2019 1200 Gross per 24 hour Intake 100 ml Output Net 100 ml General: alert and oriented; no apparent distress HEENT: pupils equal, round; extraocular movements intact; oropharynx clear; moist mucous membranes Lungs: clear to auscultation bilaterally, no crackles, no wheezes, cough is strong and effective Cardio: regular rate and rhythm, no murmurs, no gallops Abdomen: soft; non-tender; non-distended; normoactive bowel sounds Extremities: no cyanosis, clubbing or edema LABS/IMAGING - reviewed, pertinent results as below: Recent Results (from the past 48 hour(s)) Lactic Acid Whole Blood Collection Time: 05/11/19 8:05 PM Result Value Ref Range LACTIC ACID 1.87 0.50 - 2.20 mmol/L COMP. METABOLIC PANEL (91829) Collection Time: 05/11/19 8:06 PM Result Value Ref Range NA 135 135 - 145 mmol/L K 4.7 3.5 - 5.0 mmol/L CL 106 98 - 108 mmol/L CO2 TOTAL 21 (L) 23 - 31 mmol/L AGAP 8 2 - 16 BUN 19 7 - 23 mg/dL GLUCOSE 136 (H) 70 - 110 mg/dL CREATININE 1.04 0.60 - 1.25 mg/dL TOTAL BILI 5.6 (H) 0.1 - 1.1 mg/dL CALCIUM 9.1 8.6 - 10.6 mg/dL T PROTEIN 7.7 6.3 - 8.2 g/dL ALBUMIN 3.0 (L) 3.5 - 5.0 g/dL ALK PHOS 349 (H) 34 - 122 U/L ALTv 82 (H) 5 - 50 U/L AST(SGOT) 104 (H) 13 - 40 U/L eGFR Calculation (Non-) 77.6 mL/min/1.73m2 eGFR Calculation () 94.0 mL/min/1.73m2 AMMONIA, PLASMA Collection Time: 05/11/19 8:06 PM Result Value Ref Range AMMONIA 33 9 - 33 umol/L ADC,CLC OR LCC ONLY - INFLUENZA A & B DIRECT ANTIGEN Collection Time: 05/11/19 8:06 PM Result Value Ref Range Influenza A Negative Negative Influenza B Negative Negative BLOOD CULTURE SCREEN Collection Time: 05/11/19 8:06 PM Result Value Ref Range Blood Culture-Aerobic No growth at 24 hours No growth Blood Culture-Anaerobic No growth at 24 hours No growth CBC WITH DIFFERENTIAL Collection Time: 05/11/19 8:06 PM Result Value Ref Range WBC 6.77 4.20 - 10.70 10*3/L RBC 2.57 (L) 4.26 - 5.52 10*6/L HGB 8.6 (L) 12.2 - 16.4 g/dL HCT 25.4 (L) 38.4 - 49.3 % MCV 98.8 (H) 81.7 - 95.6 fL MCH 33.5 (H) 26.1 - 32.7 pg MCHC 33.9 31.2 - 35.0 g/dL RDW-SD 70.0 (H) 38.5 - 51.6 fL RDW-CV 19.8 (H) 12.1 - 15.4 % PLT 93 (L) 150 - 328 10*3/L MPV 10.4 9.8 - 13.0 fL NRBC/100 WBC 0.0 0.0 - 10.0 /100 WBCs NRBC x10^3 <0.01 10*3/L GRAN MAT (NEUT) % 78.5 % IMM GRAN % 0.60 % LYMPH % 10.2 % MONO % 9.3 % EOS % 1.0 % BASO % 0.4 % GRAN MAT x10^3(ANC) 5.31 1.99 - 6.95 10*3/uL IMM GRAN x10^3 0.04 0.00 - 0.06 10*3/uL LYMPH x10^3 0.69 (L) 1.09 - 3.23 10*3/uL MONO x10^3 0.63 0.36 - 1.02 10*3/uL EOS x10^3 0.07 0.06 - 0.53 10*3/uL BASO x10^3 0.03 0.01 - 0.09 10*3/uL LIPASE Collection Time: 05/11/19 8:06 PM Result Value Ref Range LIPASE 154 0 - 220 U/L BLOOD CULTURE SCREEN Collection Time: 05/11/19 8:27 PM Result Value Ref Range Blood Culture-Aerobic (AA) No growth Culture positive. See Blood Culture Workup for additional information. Blood Culture-Anaerobic (AA) No growth Culture positive. See Blood Culture Workup for additional information. BLOOD CULTURE WORKUP Collection Time: 05/11/19 8:27 PM Result Value Ref Range Blood Culture Workup Klebsiella pneumoniae Gram stain Gram negative bacilli GRAM NEGATIVE BLOOD PATHOGENS DNA PROBE-ANAEROBIC Collection Time: 05/11/19 8:27 PM Result Value Ref Range Klebsiella pneumoniae Positive (A) Negative URINE CULTURE Collection Time: 05/11/19 9:09 PM Result Value Ref Range URINE CULTURE No aerobic growth (< 1000 CFU/mL) URINALYSIS Collection Time: 05/11/19 9:10 PM Result Value Ref Range APPEARANCE Clear Clear COLOR Odalys (A) Yellow PH 6.0 4.8 - 8.0 SP GRAVITY 1.023 1.003 - 1.030 GLU U QUAL Normal Normal BLOOD Negative Negative KETONES Negative Negative PROTEIN Negative Negative UROBILIN Normal Normal BILIRUBIN Negative Negative NITRITE Negative Negative LEUK VALENT[place] Negative Negative RBC/HPF 4 (H) 0 - 3 HPF WBC/HPF 1 0 - 5 HPF BACTERIA Negative Negative MUCOUS Slight (A) Negative LPF Basic Metabolic Panel (NA, K, CL, CO2, GLUCOSE, BUN, CREATININE, CA) Collection Time: 05/12/19 1:57 PM Result Value Ref Range NA 135 135 - 145 mmol/L K 4.4 3.5 - 5.0 mmol/L CL 105 98 - 108 mmol/L CO2 TOTAL 20 (L) 23 - 31 mmol/L AGAP 10 2 - 16 BUN 26 (H) 7 - 23 mg/dL GLUCOSE 230 (H) 70 - 110 mg/dL CREATININE 1.20 0.60 - 1.25 mg/dL CALCIUM 9.0 8.6 - 10.6 mg/dL eGFR Calculation (Non-) 65.8 mL/min/1.73m2 eGFR Calculation () 79.7 mL/min/1.73m2 Hepatic Function Panel (ALB, T.PRO, BILI T, BU/BC, ALT, AST, ALK PHOS) Collection Time: 05/12/19 1:57 PM Result Value Ref Range TOTAL BILI 5.7 (H) 0.1 - 1.1 mg/dL BILI UNCON 2.5 (H) 0.1 - 1.1 mg/dL BILI CONJ 1.2 (H) 0.0 - 0.3 mg/dL T PROTEIN 7.0 6.3 - 8.2 g/dL ALBUMIN 2.7 (L) 3.5 - 5.0 g/dL ALK PHOS 227 (H) 34 - 122 U/L ALTv 72 (H) 5 - 50 U/L AST(SGOT) 72 (H) 13 - 40 U/L Urinalysis Collection Time: 05/12/19 1:57 PM Result Value Ref Range APPEARANCE Hazy (A) Clear COLOR Odalys (A) Yellow PH 6.0 4.8 - 8.0 SP GRAVITY 1.035 (H) 1.003 - 1.030 GLU U QUAL 50 mg/dL (A) Normal BLOOD Negative Negative KETONES Negative Negative PROTEIN Negative Negative UROBILIN 2.0 mg/dL (A) Normal BILIRUBIN Negative Negative NITRITE Negative Negative LEUK [place] Negative Negative RBC/HPF 3 0 - 3 HPF WBC/HPF 1 0 - 5 HPF BACTERIA Few (A) Negative HYAL CAST 18 (H) <=2 LPF GRAN CASTS 9 (H) <=1 LPF CBC WITH DIFFERENTIAL Collection Time: 05/12/19 1:57 PM Result Value Ref Range WBC 6.87 4.20 - 10.70 10*3/L RBC 2.73 (L) 4.26 - 5.52 10*6/L HGB 9.4 (L) 12.2 - 16.4 g/dL HCT 27.5 (L) 38.4 - 49.3 % MCV 100.7 (H) 81.7 - 95.6 fL MCH 34.4 (H) 26.1 - 32.7 pg MCHC 34.2 31.2 - 35.0 g/dL RDW-SD 74.0 (H) 38.5 - 51.6 fL RDW-CV 20.4 (H) 12.1 - 15.4 % PLT 67 (L) 150 - 328 10*3/L MPV 10.7 9.8 - 13.0 fL IPF % 2.6 1.2 - 10.7 % NRBC/100 WBC 0.0 0.0 - 10.0 /100 WBCs NRBC x10^3 <0.01 10*3/L GRAN MAT (NEUT) % 78.6 % IMM GRAN % 0.40 % LYMPH % 10.5 % MONO % 9.8 % EOS % 0.4 % BASO % 0.3 % GRAN MAT x10^3(ANC) 5.40 1.99 - 6.95 10*3/uL IMM GRAN x10^3 0.03 0.00 - 0.06 10*3/uL LYMPH x10^3 0.72 (L) 1.09 - 3.23 10*3/uL MONO x10^3 0.67 0.36 - 1.02 10*3/uL EOS x10^3 0.03 (L) 0.06 - 0.53 10*3/uL BASO x10^3 <0.03 0.01 - 0.09 10*3/uL PLT ESTIMATE Decreased (A) Normal ADC / LCC - DRUG SCREEN TRIAGE Collection Time: 05/12/19 1:57 PM Result Value Ref Range BENZO U Presumptive Positive (A) Negative KIANA U Negative Negative AMPHET Negative Negative THC Negative Negative METHADONE Negative Negative Meth U Negative Negative OPIATES Negative Negative Cocaine Metabolite Negative Negative PROPOXY Negative Negative Tric U Negative Negative PCP Negative Negative OXYCOD Negative Negative ETHANOL Collection Time: 05/12/19 1:57 PM Result Value Ref Range ALCOHOL <10 mg/dL Lactic Acid Whole Blood Collection Time: 05/12/19 1:58 PM Result Value Ref Range LACTIC ACID 2.34 (H) 0.50 - 2.20 mmol/L aPTT Collection Time: 05/12/19 3:15 PM Result Value Ref Range APTT Patient 44 (H) 23 - 38 Seconds Prothrombin Time (PT) / INR Collection Time: 05/12/19 3:15 PM Result Value Ref Range PROTIME PATIENT 26.6 (H) 12.0 - 14.7 Seconds INR 2.6 Lactic Acid Whole Blood Collection Time: 05/12/19 10:40 PM Result Value Ref Range LACTIC ACID 2.17 0.50 - 2.20 mmol/L COMP. METABOLIC PANEL (88245) Collection Time: 05/13/19 9:08 AM Result Value Ref Range NA 137 135 - 145 mmol/L K 4.1 3.5 - 5.0 mmol/L CL 109 (H) 98 - 108 mmol/L CO2 TOTAL 19 (L) 23 - 31 mmol/L AGAP 9 2 - 16 BUN 22 7 - 23 mg/dL GLUCOSE 210 (H) 70 - 110 mg/dL CREATININE 0.91 0.60 - 1.25 mg/dL TOTAL BILI 3.1 (H) 0.1 - 1.1 mg/dL CALCIUM 8.0 (L) 8.6 - 10.6 mg/dL T PROTEIN 5.6 (L) 6.3 - 8.2 g/dL ALBUMIN 2.1 (L) 3.5 - 5.0 g/dL ALK PHOS 186 (H) 34 - 122 U/L ALTv 60 (H) 5 - 50 U/L AST(SGOT) 52 (H) 13 - 40 U/L eGFR Calculation (Non-) 90.5 mL/min/1.73m2 eGFR Calculation () 109.7 mL/min/1.73m2 Ct Abdomen Pelvis W Contrast Result Date: 05/11/2019 Large volume ascites surrounds liver, spleen and extends to pelvis. Liver has a cirrhotic morphologywith a 3.3 cm anterior mass worrisome for an HCC. The gallbladder is distended and the CBD is prominent. Suggest follow-up with gallbladder ultrasound if patient remains acute in pain. Small bilateral pleural effusions larger on left. Us Gall Bladder Result Date: 05/11/2019 1. Cirrhosis with ascites. 2. Distended gallbladder without convincing sonographic evidence of acutecholecystitis. 3. Dilated common bile duct measuring 8.7 mm. If there is high clinical concern for biliary obstruction MRCP can be performed. RL: [id number] AFC: [id number] End of report ENT MEDICATIONS - reviewed. Current Facility-Administered Medications Medication Dose Route Frequency Last Rate Last Dose [START ON 05/14/2019] furosemide (LASIX) tablet 40 mg 40 mg Oral DAILY morpHINE injection 4 mg 4 mg Slow IV Push Q4HPRN 4 mg at 05/13/19 1044 phytonadione (vitamin K1) (MEPHYTON) tablet 10 mg 10 mg Oral DAILY 10 mg at 05/13/19 1201 rifAXIMin (XIFAXAN) tablet 550 mg 550 mg Oral BID 550 mg at 05/13/19 1044 spironolactone (ALDACTONE) tablet 100 mg 100 mg Oral DAILY 100 mg at 1044 acetaminophen (TYLENOL) tablet 650 mg 650 mg Oral Q6HPRN carisoprodoL (SOMA) tablet 350 mg 350 mg Oral QIDPRN cefTRIAXone (ROCEPHIN) 1,000 mg in NaCl 0.9% (NS) 50 mL MINI-BAG 1,000 mg IV Piggyback Q24H ABX ergocalciferol (vitamin d2) (CALCIFEROL) capsule 50,000 Units 50,000 Units Oral QWEEKLY 50,000 Units at 05/13/19 0830 escitalopram oxalate (LEXAPRO) tablet 20 mg 20 mg Oral DAILY 20 mg at 0830 HYDROcodone-acetaminophen (NORCO 5) 5-325 mg tablet 1 tablet 1 tablet Oral Q6HPRN 1 tablet at05/13/19 0402 hydrOXYzine (ATARAX) tablet 50 mg 50 mg Oral Q6HPRN lactulose (CEPHULAC) solution 30 mL 30 mL Oral BID 30 mL at 05/13/19 0830 LORazepam (ATIVAN) tablet 0.5 mg 0.5 mg Oral QIDPRN 0.5 mg at 05/12/19 2341 Magnesium Tab 1 tablet 1 tablet Oral BID 1 tablet at 05/13/19 0830 methocarbamol (ROBAXIN) tablet 500 mg 500 mg Oral TID 500 mg at 05/13/19 0830 NaCl 0.9% (NS) IV infusion 1,000 mL 1,000 mL Intravenous CONTINUOUS 999 mL/ hr at 05/12/19 1544 1,000 mL at 05/12/19 1544 ASSESSMENT/PLAN Stuart Glass is a 44 year old male admitted to the hospital with: Spontaneous bacterial peritonitis Klebsiella bacteremia Severe sepsis Lactic acidosis Large volume ascites Liver cirrhosis due to alcoholism Anemia of chronic disease LORENA Elevated bilirubin PLAN: Blood culture grew Klebsiella. Broaden ABx coverage. Needs ascites tapping by interventional radiology, not emergent. Sepsis protocol Resume diurestics. Hemodynamically stable Strict UOP Fluid restriction Keep HGB> 7 Trend creat INR is 2.5 GI consult BS control 100-180 Coagulopathy due to decompensated Alcoholic Liver cirrhosis Most recent hemoglobin A1c level: NA Advance Care Planning discussed and documented; advance care plan or surrogate decision maker documented in the medical record: full code, . Pain Assessment Documented as Negative, No Follow-Up Plan Required Patient treated with a beta-lactam antibiotic as definitive therapy MSSA bacteremia: NA Patients with Primary Headache Diagnosis and Imaging of the Head was Obtained: FERNANDO Jj MD [phone] documented in this encounter Plan of Treatment Name Type Priority Associated Diagnoses Date/Time IR PARACENTESIS IMAGING Routine Alcoholic cirrhosis of 05/14/2019 9:16 AM liver with ascites [employer] BODY FLUID LAB Routine Alcoholic cirrhosis of 05/14/2019 8:39 AM CULTURE(AEROBIC/ANAEROBI liver with ascites [employer] C) EXTRA TUBE LT. GREEN LAB ONLY STAT 05/16/2019 1:43 PM [employer] Name Type Priority Associated Diagnoses Order Schedule IR PARACENTESIS IMAGING Routine Alcoholic cirrhosis of ONCE for 1 Occurrences liver with ascites starting 05/13/2019 until 05/13/2019 EXTRA TUBE LT. GREEN LAB ONLY STAT STAT for 1 Occurrences starting 05/16/2019 until 05/16/2019 Health Maintenance Due Date Last Done Comments DTaP,Tdap,and Td Vaccines (1 - Tdap) 1986 INFLUENZA VACCINE (#1) 2018 01/22/2018 PNEUMOCOCCAL 0-64 YEARS COMBINED SERIES (1 of 1 - 01/16/2019 11/21/2018 PPSV23) documented as of this encounter Procedures Procedure Name Priority Date/Time Associated Comments Diagnosis BASIC METABOLIC PANEL Routine 05/16/2019 1:35 Results for this (NA, K, CL, CO2, PM [employer] procedure are in GLUCOSE, BUN, the results CREATININE, CA) section. MAGNESIUM Routine 05/16/2019 1:35 Results for this PM [employer] procedure are in the results section. BASIC METABOLIC PANEL Routine 05/16/2019 4:01 Results for this (NA, K, CL, CO2, AM [employer] procedure are in GLUCOSE, BUN, the results CREATININE, CA) section. MAGNESIUM Routine 05/16/2019 4:01 Results for this AM [employer] procedure are in the results section. AMMONIA, PLASMA Routine 05/15/2019 3:59 Results for this PM [employer] procedure are in the results section. IR PERIPHERALLY Routine 05/15/2019 3:23 Bacteremia Results for this INSERTED DEVICE PM [employer] procedure are in NON-TUNNELED PICC 5 the results OR OLDER section. BASIC METABOLIC PANEL Routine 05/15/2019 5:33 Results for this (NA, K, CL, CO2, AM [employer] procedure are in GLUCOSE, BUN, the results CREATININE, CA) section. MAGNESIUM Routine 05/15/2019 5:33 Results for this AM [employer] procedure are in the results section. PROTHROMBIN TIME / Routine 05/15/2019 5:30 Results for this INR AM [employer] procedure are in the results section. XR CHEST 2 VW Routine 05/14/2019 12:44 Cough Results for this PM [employer] procedure are in the results section. EXTRA TUBE SST Routine 05/14/2019 9:30 AM [employer] BODY FLUID DIRECT Routine 05/14/2019 8:39 Alcoholic Results for this COUNT AM [employer] cirrhosis of liver procedure are in with ascites the results section. BODY FLUID MANUAL Routine 05/14/2019 8:39 Alcoholic Results for this DIFF AM [employer] cirrhosis of liver procedure are in with ascites the results section. BODY FLUID DIRECT Routine 05/14/2019 8:39 Alcoholic Results for this COUNT AM [employer] cirrhosis of liver procedure are in with ascites the results section. COMP. METABOLIC PANEL Routine 05/13/2019 9:08 Results for this ([id number]) AM [employer] procedure are in the results section. LACTIC ACID WHOLE Routine 05/12/2019 10:40 Results for this BLOOD PM [employer] procedure are in the results section. ACTIVATED PARTIAL STAT 05/12/2019 3:15 Positive blood Results for this THRMPLAS FRANCISCA PM [employer] culture procedure are in the results section. PROTHROMBIN TIME / STAT 05/12/2019 3:15 Positive blood Results for this INR PM [employer] culture procedure are in the results section. LACTIC ACID WHOLE STAT 05/12/2019 1:58 Positive blood Results for this BLOOD PM [employer] culture procedure are in the results section. CBC WITH DIFFERENTIAL STAT 05/12/2019 1:57 Positive blood Results for this PM [employer] culture procedure are in the results section. ADC / LCC - DRUG STAT 05/12/2019 1:57 Positive blood Results for this SCREEN TRIAGE PM [employer] culture procedure are in the results section. URINALYSIS STAT 05/12/2019 1:57 Positive blood Results for this PM [employer] culture procedure are in the results section. CBC WITH DIFFERENTIAL Routine 05/12/2019 1:57 Positive blood Results for this PM [employer] culture procedure are in the results section. ETHANOL STAT Add-On 05/12/2019 1:57 Positive blood Results for this PM [employer] culture procedure are in the results section. BASIC METABOLIC PANEL STAT 05/12/2019 1:57 Positive blood Results for this (NA, K, CL, CO2, PM [employer] culture procedure are in GLUCOSE, BUN, the results CREATININE, CA) section. HEPATIC FUNCTION STAT 05/12/2019 1:57 Positive blood Results for this PANEL ([id number]) PM [employer] culture procedure are in (ALB,T.PRO,BILI the results T,BU/BC,ALT,AST,ALK section. PHOS) NOTICE OF PRIVACY Routine 05/12/2019 1:34 PRACTICES PM [employer] documented in this encounter Results MAGNESIUM (05/16/2019 1:35 PM [employer]) MAGNESIUM 2.2 1.7 - 2.4 mg/dL [facility] SERVICES-[facility] Specimen Blood - ARM, RIGHT Performing Organization Address City/State/Zipcode Phone Number [facility] CLIA: [id number], [address] [place] [address] SERVICES-[facility] [address] BASIC METABOLIC PANEL (NA, K, CL, CO2, GLUCOSE, BUN, CREATININE, CA) (2019 1:35 PM [employer]) NA 135 135 - 145 [facility] mmol/L [facility] K 4.0 3.5 - 5.0 [facility] mmol/L [facility] CL 102 98 - 108 mmol/L [facility] CO2 TOTAL 23 23 - 31 mmol/L [facility] AGAP 10 2 - 16 [facility] BUN 16 7 - 23 mg/dL [facility] GLUCOSE 199 (H) 70 - 110 mg/dL [facility] CREATININE 0.72 0.60 - 1.25 [facility] mg/dL [facility] CALCIUM 7.9 (L) 8.6 - 10.6 [facility] mg/dL [facility] eGFR Calculation 118.6 mL/min/1.73m2 [facility] (Non- [facility]) [place] eGFR Calculation 143.7 mL/min/1.73m2 [facility] () [facility] Specimen Blood - ARM, RIGHT Narrative Performed At [employer] of [employer] Rate [facility] (GFR) and Staging of Kidney Disease* CAMPUS + + --+ + | GFR (mL/min/1.73 m2) | With Kidney Damage | Without Kidney Damage + + --+ + | >90 | Stage one | Normal + + --+ + | 60-89 | Stage two | Decreased GFR + + --+ + | 30-59 | Stage three | Stage three + + --+ + | 15-29 | Stage four | Stage four + + --+ + | <15 (or dialysis) | Stage five | Stage five + + --+ + *Each stage assumes the associated GFR [...] tests). Performing Organization Address City/State/Zipcode Phone Number [facility] CLIA: [id number], [address] [place] [address] [facility] (05/16/2019 4:01 AM [employer]) MAGNESIUM 1.5 (L) 1.7 - 2.4 mg/dL [facility] Specimen Blood - C[place] Performing Organization Address City/State/Zipcode Phone Number [facility] CLIA: [id number], [address] [place] [address] [facility] [address] BASIC METABOLIC PANEL (NA, K, CL, CO2, GLUCOSE, BUN, CREATININE, CA) (2019 4:01 AM [employer]) NA 137 135 - 145 [facility] mmol/L [facility] K 3.9 3.5 - 5.0 [facility] mmol/L [facility] CL 103 98 - 108 mmol/L [facility] CO2 TOTAL 23 23 - 31 mmol/L [facility] AGAP 11 2 - 16 [facility] BUN 17 7 - 23 mg/dL [facility] GLUCOSE 162 (H) 70 - 110 mg/dL [facility] CREATININE 0.84 0.60 - 1.25 [facility] mg/dL [facility] CALCIUM 8.3 (L) 8.6 - 10.6 [facility] mg/dL [facility] eGFR Calculation 99.3 mL/min/1.73m2 [facility] (Non- [facility] Indian) [place] eGFR Calculation 120.3 mL/min/1.73m2 [facility] () [facility] Specimen Blood - [place] Narrative Performed At [employer] Rate [facility] (GFR) and Staging of Kidney Disease* [place] + + --+ + | GFR (mL/min/1.73 m2) | With Kidney Damage | Without Kidney Damage + + --+ + | >90 | Stage one | Normal + + --+ + | 60-89 | Stage two | Decreased GFR + + --+ + | 30-59 | Stage three | Stage three + + --+ + | 15-29 | Stage four | Stage four + + --+ + | <15 (or dialysis) | Stage five | Stage five + + --+ + *Each stage assumes the associated GFR [...] tests). Performing Organization Address City/State/Zipcode Phone Number [facility] CLIA: [id number], [address] [place] [address] [facility] AMMONIA, PLASMA (05/15/2019 3:59 PM [employer]) AMMONIA 47 (H) 9 - 33 umol/L [facility] SERVICES-[facility] Specimen Blood - ARM, RIGHT Performing Organization Address City/[facility]/Zipcode Phone Number [facility] CLIA: [id number], [address] [place] [address] [facility] IR PERIPHERALLY INSERTED DEVICE NON-TUNNELED PICC 5 OR OLDER (05/15/2019 3:23 PM [employer]) Specimen Impressions Performed At Successful right basilic power injectable PICC placement . PACS/VR/DOSE Narrative Performed At PROCEDURE: PICC placement PACS/VR/DOSE HISTORY : Access needed, patient to undergo IV antibiotics course. MEDICATIONS: Local lidocaine. I reviewed the patient?s current medication list as noted in the nursing assessment, and the following actions were taken: None []. RADIATION DOSE: 3 mgray ATTENDING PRESENCE: As the attending radiologist, I was present in the room during the entire procedure. TECHNIQUE: Signed, informed consent was obtained from the patient after discussing the risks, benefits, and alternatives of the procedure. [place] protocol timeout was performed verifying correct patient, correct site, and correct procedure. Images were archived to PACS. Patency of the vein was documented with US. A cap and mask were donned, hand hygiene was performed and sterile gown and gloves were donned. The skin was prepped with 2% chlorhexidine and the solution was allowed to dry. A full body fenestrated drape was placed over the patient. The vein was accessed with a micropuncture needle using ultrasound guidance, after infiltrating local anesthesia . A 4 Tongan PICC was placed under fluoroscopy guidance into the central venous system, with its tip at the cavoatrial junction. The catheter was secured in place. The PICC is non-tunneled. No immediate complications were observed. The catheter was cut to 44 cm. Findings: Ultrasound demonstrates patent and compressible right basilic vein. Final image demonstrates PICC placement with tip at the cavoatrial junction. Procedure Note [facility], Radiant Results Inft User - 05/16/2019 10:33 AM [employer] PROCEDURE: PICC placement HISTORY : Access needed, patient to undergo IV antibiotics course. MEDICATIONS: Local lidocaine. I reviewed the patient?s current medication list as noted in the nursing assessment, and the following actions were taken: None []. RADIATION DOSE: 3 mgray ATTENDING PRESENCE: As the attending radiologist, I was present in the room during the entire procedure. TECHNIQUE: Signed, informed consent was obtained from the patient after discussing the risks, benefits, and alternatives of the procedure. [place] protocol timeout was performed verifying correct patient, correct site, and correct procedure. Images were archived to PACS. Patency of the vein was documented with US. A cap and mask were donned, hand hygiene was performed and sterile gown and gloves were donned. The skin was prepped with 2% chlorhexidine and the solution was allowed to dry. A full body fenestrated drape was placed over the patient. The vein was accessed with a micropuncture needle using ultrasound guidance, after infiltrating local anesthesia . A 4 Tongan PICC was placed under fluoroscopy guidance into the central venous system, with its tip at the cavoatrial junction. The catheter was secured in place. The PICC is non-tunneled. No immediate complications were observed. The catheter was cut to 44 cm. Findings: Ultrasound demonstrates patent and compressible right basilic vein. Final image demonstrates PICC placement with tip at the cavoatrial junction. IMPRESSION Successful right basilic power injectable PICC placement . Performing Organization Address City/[facility]/[place] Phone Number PACS/VR/DOSE MAGNESIUM (05/15/2019 5:33 AM [employer]GER [employer]SING) MAGNESIUM 1.2 (L) 1.7 - 2.4 mg/dL [facility] Specimen Blood - ARM, LEFT Performing Organization Address City/[facility]/Zipcode Phone Number [facility] CLIA: [id number], [address] [place] [address] SERVICES-[facility] [address] BASIC METABOLIC PANEL (NA, K, CL, CO2, GLUCOSE, BUN, CREATININE, CA) (2019 5:33 AM [employer]) NA 138 135 - 145 [facility] mmol/L [facility] K 4.5 3.5 - 5.0 [facility] mmol/L [facility] CL 105 98 - 108 mmol/L [facility] CO2 TOTAL 25 23 - 31 mmol/L [facility] AGAP 8 2 - 16 [facility] BUN 17 7 - 23 mg/dL [facility] GLUCOSE 131 (H) 70 - 110 mg/dL [facility] CREATININE 0.78 0.60 - 1.25 [facility] mg/dL [facility] CALCIUM 8.0 (L) 8.6 - 10.6 [facility] mg/dL [facility] eGFR Calculation 108.1 mL/min/1.73m2 [facility] (Non- [facility] Indian) [place] eGFR Calculation 131.1 mL/min/1.73m2 [facility] () [facility] Specimen Blood - ARM, LEFT Narrative Performed At [employer] of [employer] Rate [facility] (GFR) and Staging of Kidney Disease* CAMPUS + + --+ + | GFR (mL/min/1.73 m2) | With Kidney Damage | Without Kidney Damage + + --+ + | >90 | Stage one | Normal + + --+ + | 60-89 | Stage two | Decreased GFR + + --+ + | 30-59 | Stage three | Stage three + + --+ + | 15-29 | Stage four | Stage four + + --+ + | <15 (or dialysis) | Stage five | Stage five + + --+ + *Each stage assumes the associated GFR [...] tests). Performing Organization Address City/State/Zipcode Phone Number [facility] CLIA: [id number], [address] [place] [address] [facility] St PROTHROMBIN TIME / INR (05/15/2019 5:30 AM [employer]NAGER [employer]SING) PROTIME PATIENT 30.0 (H) 10.1 - 12.6 [facility] Seconds SERVICES-[facility] INR 2.7Comment: Normal [facility] INR <1.1; Warfarin [facility] Therapeutic range [facility] 2.0 to 3.0 or 2.5 to 3.5, depending upon the indications. Specimen Blood - ARM, LEFT Performing Organization Address City/[facility]/Zipcode Phone Number [facility] CLIA: [id number], [address] [place] [address] [facility] [address] XR CHEST 2 VW (05/14/2019 12:44 PM [employer]) Specimen Impressions Performed At .IMPRESSION: PACS/VR/DOSE 1. Blunting of the left costophrenic angle probably represents a combination of atelectasis and pleural effusion. Narrative Performed At CHEST 2 VIEWS: PACS/VR/DOSE HISTORY:Cough TECHNIQUE:: PA and lateral views of the chest are obtained. COMPARISON: 11/16/2018 FINDINGS: Slight prominence of the vascularity is noted likely related to poor inspiratory effort. Blunting of the left costophrenic angle is seen. Heart size is normal. Procedure Note [facility], Radiant Results Inft User - 05/14/2019 12:48 PM [employer]NAGER [employer]SING CHEST 2 VIEWS: HISTORY:Cough TECHNIQUE:: PA and lateral views of the chest are obtained. COMPARISON: 11/16/2018 FINDINGS: Slight prominence of the vascularity is noted likely related to poor inspiratory effort. Blunting of the left costophrenic angle is seen. Heart size is normal. IMPRESSION .IMPRESSION: 1. Blunting of the left costophrenic angle probably represents a combination of atelectasis and pleural effusion. Performing Organization Address City/State/Zipcode Phone Number PACS/VR/DOSE EXTRA TUBE SST (05/14/2019 9:30 AM MANAGER DATA WAREHOUSING) Specimen Blood Performing Organization Address City/State/Zipcode Phone Number [facility] CLIA: [id number], [address] [place] [address] [facility] [address] BODY FLUID MANUAL DIFF (05/14/2019 8:39 AM MANAGER DATA WAREHOUSING) BF SEGS 58 % [facility] BF LYMPHS 3 % [facility] MACROPHAGE 37 % [facility] MESOS 2 % [facility] #CELS CNTD 100 [facility] Specimen Fluid - ASCITES Narrative Performed At Few reactive mesothelial cell clumps [facility] observed. Performing Organization Address City/State/Zipcode Phone Number [facility] CLIA: [id number], [address] [place] [address] [facility] [address] BODY FLUID DIRECT COUNT (05/14/2019 8:39 AM MANAGER DATA WAREHOUSING) BF COLOR Yellow [facility] TURBIDITY Turbid [facility] BF WBC Count 3,297 /L [facility] BF RBC Count <3000 /L [facility] Specimen Fluid - ASCITES Narrative Performed At The reference range and other method [facility] performance specifications have not been CAMPUS established for this body fluid. The test results must be integrated into the clinical context for interpretation. Performing Organization Address City/State/Zipcode Phone Number [facility] CLIA: [id number], [address] [place] [address] [facility] [address] COMP. METABOLIC PANEL (33436) (05/13/2019 9:08 AM MANAGER DATA WAREHOUSING) NA 137 135 - 145 [facility] mmol/L [facility] K 4.1 3.5 - 5.0 [facility] mmol/L [facility] CL 109 (H) 98 - 108 mmol/L [facility] CO2 TOTAL 19 (L) 23 - 31 mmol/L [facility] AGAP 9 2 - 16 [facility] BUN 22 7 - 23 mg/dL [facility] GLUCOSE 210 (H) 70 - 110 mg/dL [facility] CREATININE 0.91 0.60 - 1.25 [facility] mg/dL [facility] TOTAL BILI 3.1 (H) 0.1 - 1.1 mg/dL [facility] CALCIUM 8.0 (L) 8.6 - 10.6 [facility] mg/dL [facility] T PROTEIN 5.6 (L) 6.3 - 8.2 g/dL [facility] ALBUMIN 2.1 (L) 3.5 - 5.0 g/dL [facility] ALK PHOS 186 (H) 34 - 122 U/L [facility] ALTv 60 (H) 5 - 50 U/L [facility] AST(SGOT) 52 (H) 13 - 40 U/L [facility] eGFR Calculation 90.5 mL/min/1.73m2 [facility] (Non- [facility]) [place] eGFR Calculation 109.7 mL/min/1.73m2 [facility] () [facility] Specimen Blood - HAND, RIGHT Narrative Performed At Association of Glomerular Filtration Rate [facility] (GFR) and Staging of Kidney Disease* CAMPUS + + --+ + | GFR (mL/min/1.73 m2) | With Kidney Damage | Without Kidney Damage + + --+ + | >90 | Stage one | Normal + + --+ + | 60-89 | Stage two | Decreased GFR + + --+ + | 30-59 | Stage three | Stage three + + --+ + | 15-29 | Stage four | Stage four + + --+ + | <15 (or dialysis) | Stage five | Stage five + + --+ + *Each stage assumes the associated GFR [...] tests). Performing Organization Address City/State/Zipcode Phone Number [facility] CLIA: [id number], [address] [place], [place] [address] [facility] Lactic Acid Whole Blood (05/12/2019 10:40 PM MANAGER DATA WAREHOUSING) Pathologist [facility] LACTIC ACID 2.17 0.50 - 2.20 mmol/L [facility] SERVICES-[facility] Specimen Blood - LINE, VENOUS Performing Organization Address City/State/Zipcode Phone Number [facility] CLIA: [id number], [address] [place] [address] [facility] [address] Prothrombin Time (PT) / INR (05/12/2019 3:15 PM MANAGER DATA WAREHOUSING) PROTIME PATIENT 26.6 (H) 12.0 - 14.7 [facility] LABORATORY INR 2.6Comment: Normal [facility] INR <1.1; Warfarin [facility] Therapeutic range LABORATORY 2.0 to 3.0 or 2.5 to 3.5, depending upon the indications. Specimen Blood - VENOUS Performing Organization Address [facility]/[place] Phone Number [facility] CLIA: [id number], [address] [place] [address] aPTT (05/12/2019 3:15 PM MANAGER DATA WAREHOUSING) [facility] APTT Patient 44 (H) 23 - 38 Seconds [facility] Specimen Blood - VENOUS Narrative Performed At The [facility] patient population mean normal value [facility] for aPTT is 30 seconds. Performing Organization Address [facility]/[place] Phone Number [facility] CLIA: [id number], [address] [place] [address] Lactic Acid Whole Blood (05/12/2019 1:58 PM MANAGER DATA WAREHOUSING) [facility] LACTIC ACID 2.34 (H) 0.50 - 2.20 mmol/L [facility] Specimen Blood - VENOUS Performing Organization Address City/[facility]/[place] Phone Number [facility] CLIA: [id number], [address] [place] [address] ETHANOL (05/12/2019 1:57 PM MANAGER DATA WAREHOUSING) [facility] ALCOHOL <10 mg/dL [facility] Specimen Blood - VENOUS Narrative Performed At <10 Negative [facility] LAB[facility]ORY 50-100 Toxic >100 Depression of TAWER >400 Fatalities Reported Performing Organization Address City/[facility]/Zipcode Phone Number [facility] CLIA: [id number], [address] [place] [address] ADC / LCC - DRUG SCREEN TRIAGE (05/12/2019 1:57 PM MANAGER DATA WAREHOUSING) BENZO U Presumptive Negative [facility] Positive (A) [facility] KIANA U Negative Negative [facility] AMPHET Negative Negative H[facility] THC Negative Negative [facility] METHADONE Negative Negative [facility] Meth U Negative Negative [facility] OPIATES Negative Negative [facility] Cocaine Metabolite Negative Negative [facility] PROPOXY Negative Negative [facility] Tric U Negative Negative [facility] PCP Negative Negative [facility] OXYCOD Negative Negative [facility] Specimen Urine - URINE, CLEAN CATCH Narrative Performed At Urine Drug Cutoff Ranges [facility] Benzodiazepines: 150 ng/mL Barbiturates: 200 ng/mL Amphetamine: 500 ng/mL Cannabinoids: 50 ng/mL Methadone: 200 ng/mL Methamphetamine: 500 ng/mL Opiates: 100 ng/mL or 2000 ng/mL Cocaine: 150 ng/mL Propoxyphene: 300 ng/mL Tricyclics: 300 ng/mL Oxycodone: 100 ng/mL PCP: 25 ng/mL The results are to be used only for medical (i.e., treatment) purposes. Unconfirmed screening results must not be used for non-medical purposes (e.g., employment testing, legal testing). Performing Organization Address City/State/Zipcode Phone Number [facility] CLIA: [id number], [address] [place] [address] CBC WITH DIFFERENTIAL (05/12/2019 1:57 PM MANAGER DATA WAREHOUSING) WBC 6.87 4.20 - 10.70 [facility] 10*3/L [facility] RBC 2.73 (L) 4.26 - 5.52 [facility] 10*6/L [facility]ITAL LAB[facility]ORY HGB 9.4 (L) 12.2 - 16.4 [facility] g/dL [facility] HCT 27.5 (L) 38.4 - 49.3 % [facility]ORY MCV 100.7 (H) 81.7 - 95.6 [facility] fL [facility]OS[facility]ITAL [facility] MCH 34.4 (H) 26.1 - 32.7 [facility] LABORATORY MCHC 34.2 31.2 - 35.0 [facility] g/dL [facility] RDW-SD 74.0 (H) 38.5 - 51.6 [facility] LABORATORY RDW-CV 20.4 (H) 12.1 - 15.4 % [facility] LAB[facility]ATORY PLT 67 (L) 150 - 328 [facility] 10*3/L [facility] MPV 10.7 9.8 - 13.0 fL [facility] LAB[facility] IPF % 2.6Comment: Platelet 1.2 - 10.7 % [facility] count measured by HOSPITAL fluorescence method. LABORATORY NRBC/100 WBC 0.0 0.0 - 10.0 [facility] /[address] [facility] LAB[facility]ATORY NRBC x10^3 <0.01 10*3/L [facility] LAB[facility]ATORY GRAN MAT (NEUT) % 78.6 % [facility] LAB[facility]ATORY IMM GRAN % 0.40 % [facility] LAB[facility]ORY LYMPH % 10.5 % [facility] LAB[facility]ORY MONO % 9.8 % [facility] LABORATORY EOS % 0.4 % [facility] LABORATORY BASO % 0.3 % [facility] LABORATORY GRAN MAT 5.40 1.99 - 6.95 [facility] x10^3(ANC) 10*3/uL [facility] LAB[facility] IMM GRAN x10^3 0.03 0.00 - 0.06 [facility] 10*3/uL [facility] LYMPH x10^3 0.72 (L) 1.09 - 3.23 [facility] 10*3/uL [facility] MONO x10^3 0.67 0.36 - 1.02 [facility] 10*3/uL [facility] EOS x10^3 0.03 (L) 0.06 - 0.53 [facility] 10*3/uL [facility] BASO x10^3 <0.03 0.01 - 0.09 [facility] 10*3/uL [facility] PLT ESTIMATE Decreased (A) Normal [facility]ORY Specimen Blood - VENOUS Performing Organization Address City/State/Zipcode Phone Number [facility] CLIA: [id number], [address] [place] [address] Urinalysis (05/12/2019 1:57 PM MANAGER DATA WAREHOUSING) APPEARANCE Hazy (A) Clear [facility] COLOR Odalys (A) Yellow [facility] PH 6.0 4.8 - 8.0 [facility] SP GRAVITY 1.035 (H) 1.003 - 1.030 [facility] LAB[facility] GLU U QUAL 50 mg/dL (A) Normal [facility] BLOOD Negative Negative [facility] KETONES Negative Negative [facility] PROTEIN Negative Negative [facility] UROBILIN 2.0 mg/dL (A) Normal [facility] LAB[facility]ORY BILIRUBIN Negative Negative [facility] LAB[facility] NITRITE Negative Negative [facility] LAB[facility]ATORY [place] Negative Negative [facility] LAB[facility]ORY RBC/HPF 3 0 - 3 HPF [facility] LAB[facility]ORY WBC/HPF 1 0 - 5 HPF [facility]ORY BACTERIA Few (A) Negative [facility] LAB[facility]ATORY HYAL CAST 18 (H) <=2 LPF [facility] LAB[facility]ATORY GRAN CASTS 9 (H) <=1 LPF [facility] Specimen Urine - URINE, CLEAN CATCH Performing Organization Address City/State/Zipcode Phone Number [facility] CLIA: [id number], [address] [place] [address] LABORATORY Hospital [facility] Hepatic Function Panel (ALB, T.PRO, BILI T, BU/BC, ALT, AST, ALK PHOS) (2019 1:57 PM MANAGER DATA WAREHOUSING) TOTAL BILI 5.7 (H) 0.1 - 1.1 mg/dL [facility] BILI UNCON 2.5 (H) 0.1 - 1.1 mg/dL [facility] BILI CONJ 1.2 (H) 0.0 - 0.3 mg/dL [facility] T PROTEIN 7.0 6.3 - 8.2 g/dL [facility] ALBUMIN 2.7 (L) 3.5 - 5.0 g/dL [facility] ALK PHOS 227 (H) 34 - 122 U/L [facility] ALTv 72 (H) 5 - 50 U/L [facility] AST(SGOT) 72 (H) 13 - 40 U/L [facility] Specimen Blood - VENOUS Performing Organization Address City/State/Zipcode Phone Number [facility] ROLAND: [id number], [address] [place] [address] Basic Metabolic Panel (NA, K, CL, CO2, GLUCOSE, BUN, CREATININE, CA) (2019 1:57 PM MANAGER DATA WAREHOUSING) NA 135 135 - 145 [facility] mmol/L [facility] K 4.4 3.5 - 5.0 [facility] mmol/L [facility] CL 105 98 - 108 mmol/L [facility] CO2 TOTAL 20 (L) 23 - 31 mmol/L [facility] AGAP 10 2 - 16 [facility] BUN 26 (H) 7 - 23 mg/dL [facility] GLUCOSE 230 (H) 70 - 110 mg/dL [facility] CREATININE 1.20 0.60 - 1.25 [facility] mg/dL [facility] CALCIUM 9.0 8.6 - 10.6 [facility] mg/dL [facility] eGFR Calculation 65.8 mL/min/1.73m2 [facility] (Non-[facility] LABORATORY Indian) eGFR Calculation 79.7 mL/min/1.73m2 [facility] () [facility] Specimen Blood - VENOUS Narrative Performed At [employer] of Glomerular Filtration Rate (GFR) [facility] LAB[facility]ATORY and Staging of Kidney Disease* + [...] tests). Performing Organization Address City/State/Zipcode Phone Number [facility] CLIA: [id number], [address] [place] [address] documented in this encounter Visit Diagnoses Diagnosis Positive blood culture - Primary Bacteremia Common bile duct dilatation Other specified disorders of biliary tract Bacteremia SBP (spontaneous bacterial peritonitis) Spontaneous bacterial peritonitis Alcoholic cirrhosis of liver with ascites Alcoholic cirrhosis of liver Cough Spontaneous bacterial peritonitis documented in this encounter Administered Medications Medication Order MAR Action Action Date Dose Rate Site carisoprodoL (SOMA) tablet 350 mg Given 05/15/2019 9:34 PM MANAGER DATA WAREHOUSING 350 mg 350 mg, Oral, QIDPRN, Starting 05/12/19 at 1836, Until Discontinued, Routine, Insomnia cefTRIAXone (ROCEPHIN) 1,000 mg in NaCl Given 05/16/2019 1:38 PM MANAGER DATA WAREHOUSING 1,000 mg 0.9% (NS) 50 mL MINI-BAG 1,000 mg, IV Piggyback, Q24H ABX, First dose on Mon05/13/19 at 1400, Until Discontinued, 50 mL, Reason for Anti-Infective: Documented Infection, Documented Infection Site: Abdominal, Duration of Therapy: 7 days Given 05/15/2019 4:02 PM MANAGER DATA WAREHOUSING 1,000 mg Given 05/14/2019 2:14 PM MANAGER DATA WAREHOUSING 1,000 mg ergocalciferol (vitamin d2) Given 05/13/2019 8:30 AM MANAGER DATA WAREHOUSING 50,000 Units (CALCIFEROL) capsule 50,000 Units 50,000 Units, Oral, QWEEKLY, First dose on Mon05/13/19 at 0900, Until Discontinued, Routine escitalopram oxalate (LEXAPRO) tablet 20 mg Given 05/16/2019 8:47 AM MANAGER DATA WAREHOUSING 20 mg 20 mg, Oral, DAILY, First dose on Mon05/13/19 at 0900, Until Discontinued, Routine Given 05/15/2019 9:27 AM MANAGER DATA WAREHOUSING 20 mg Given 05/14/2019 9:31 AM MANAGER DATA WAREHOUSING 20 mg furosemide (LASIX) tablet 40 mg Given 05/16/2019 8:47 AM MANAGER DATA WAREHOUSING 40 mg 40 mg, Oral, DAILY, First dose on Mon05/14/19 at 0900, Until Discontinued, Routine Given 05/15/2019 9:33 AM MANAGER DATA WAREHOUSING 40 mg Given 05/14/2019 9:31 AM MANAGER DATA WAREHOUSING 40 mg lactulose (CEPHULAC) solution 30 mL Given 05/16/2019 8:46 AM MANAGER DATA WAREHOUSING 30 mL 30 mL, Oral, BID, First dose on Mon05/12/19 at 2000, Until Discontinued, Routine Given 05/15/2019 9:29 PM MANAGER DATA WAREHOUSING 30 mL Given 05/15/2019 9:27 AM MANAGER DATA WAREHOUSING 30 mL LORazepam (ATIVAN) tablet 0.5 mg Given 05/16/2019 8:54 AM MANAGER DATA WAREHOUSING 0.5 mg 0.5 mg, Oral, QIDPRN, Starting Mon05/12/19 at 1840, Until Discontinued, Routine, Anxiety Given 05/15/2019 1:26 AM MANAGER DATA WAREHOUSING 0.5 mg Given 05/13/2019 8:33 PM MANAGER DATA WAREHOUSING 0.5 mg Magnesium Tab 1 tablet Given 05/16/2019 8:54 AM MANAGER DATA WAREHOUSING 1 tablet 1 tablet, Oral, BID, First dose on Mon05/13/19 at 0800, Until Discontinued, Routine Given 05/15/2019 9:29 PM MANAGER DATA WAREHOUSING 1 tablet Given 05/15/2019 9:27 AM MANAGER DATA WAREHOUSING 1 tablet methocarbamol (ROBAXIN) tablet 500 mg Given 05/16/2019 8:47 AM MANAGER DATA WAREHOUSING 500 mg 500 mg, Oral, TID, First dose on Mon05/12/19 at 2100, Until Discontinued, Routine Given 05/15/2019 9:29 PM MANAGER DATA WAREHOUSING 500 mg Given 05/15/2019 4:01 PM MANAGER DATA WAREHOUSING 500 mg morpHINE injection 4 mg Given 05/16/2019 4:00 AM MANAGER DATA WAREHOUSING 4 mg 4 mg, Slow IV Push, Q4HPRN, Starting Mon05/13/19 at 0042, Until Discontinued, Routine, Pain (scale 7-10) Given 05/15/2019 4:23 PM MANAGER DATA WAREHOUSING 4 mg Given 05/15/2019 5:52 AM MANAGER DATA WAREHOUSING 4 mg ondansetron (ZOFRAN (PF)) injection 4 mg 4 mg, Slow IV Push, Q6HPRN, Starting Mon05/14/19 at 1003, Until Discontinued, Routine, Nausea and Vomiting (N/V) rifAXIMin (XIFAXAN) tablet 550 mg Given 05/16/2019 8:46 AM MANAGER DATA WAREHOUSING 550 mg 550 mg, Oral, BID, First dose on Mon05/13/19 at 1015, Until Discontinued, Routine, Reason for Anti-Infective: Empiric Therapy for Suspected Infection, Empiric Therapy Site: Abdominal, Duration of therapy: 7 days Given 05/15/2019 9:29 PM MANAGER DATA WAREHOUSING 550 mg Given 05/15/2019 9:27 AM MANAGER DATA WAREHOUSING 550 mg spironolactone (ALDACTONE) tablet 100 mg Given 05/16/2019 8:46 AM MANAGER DATA WAREHOUSING 100 mg 100 mg, Oral, DAILY, First dose on Mon05/13/19 at 1015, Until Discontinued, Routine Given 05/15/2019 9:33 AM MANAGER DATA WAREHOUSING 100 mg Given 05/14/2019 9:31 AM MANAGER DATA WAREHOUSING 100 mg Medication Order MAR Action Action Date Dose Rate Site albumin (ALBUMINAR 25%) 25 % Given 05/13/2019 12:00 PM MANAGER DATA WAREHOUSING 25 g injection 25 g 25 g, IV Infusion, ONCE, 1 dose, Mon05/13/19 at 1115, 100 mL, Indication: LARGE VOLUME PARACENTESIS IN CIRRHOSIS (>5L) cefTRIAXone (ROCEPHIN) 2,000 mg in NaCl Given 05/12/2019 2:00 PM MANAGER DATA WAREHOUSING 2,000 mg 0.9% (NS) 100 mL MINI-BAG 2,000 mg, IV Piggyback, ONCE, 1 dose, Mon05/12/19 at 1500, 100 mL, Reason for Anti-Infective: Empiric Therapy for Suspected Infection, Empiric Therapy Site: Abdominal, Duration of therapy: 7 days FENTanyl PF (SUBLIMAZE (PF)) injection 50 Given 05/13/2019 12:26 AM MANAGER DATA WAREHOUSING 50 mcg mcg 50 mcg, Slow IV Push, Q3HPRN, Starting Mon05/12/19 at 1840, Until Mon05/13/19 at 0044, Routine, Pain (scale 7-10) Given 05/12/2019 8:22 PM MANAGER DATA WAREHOUSING 50 mcg furosemide (LASIX) injection 40 mg Given 05/14/2019 4:17 PM MANAGER DATA WAREHOUSING 40 mg 40 mg, Slow IV Push, ONCE, 1 dose, Mon05/14/19 at 1500, Routine furosemide (LASIX) tablet 20 mg Given 05/13/2019 8:30 AM MANAGER DATA WAREHOUSING 20 mg 20 mg, Oral, DAILY, First dose on Mon05/13/19 at 0900, Until Discontinued, Routine HYDROcodone-acetaminophen (NORCO 5) 5-325 Given 05/13/2019 8:33 PM MANAGER DATA WAREHOUSING 1 tablet mg tablet 1 tablet 1 tablet, Oral, Q6HPRN, Starting [place] 05/12/19 at 1840, Until Mon05/14/19 at 1839, Routine, Pain (scale 4-6) Given 05/13/2019 4:02 AM MANAGER DATA WAREHOUSING 1 tablet Given 05/12/2019 6:56 PM MANAGER DATA WAREHOUSING 1 tablet magnesium sulfate in water 4 gram/50 mL (8 %) New Bag 05/15/2019 9:27 AM MANAGER DATA WAREHOUSING 4 g IV Piggyback 4 g 4 g, IV Piggyback, ONCE, 1 dose, Mon05/15/19 at 1000, Routine magnesium sulfate in water 4 gram/50 mL (8 %) New Bag 05/16/2019 11:07 AM MANAGER DATA WAREHOUSING 4 g IV Piggyback 4 g 4 g, IV Piggyback, ONCE, 1 dose, [facility] 05/16/19 at 1045, Routine morpHINE injection 4 mg Given 05/12/2019 3:39 PM MANAGER DATA WAREHOUSING 4 mg 4 mg, Slow IV Push, ONCE, 1 dose, [place] 05/12/19 at 1645, STAT NaCl 0.9% (NS) IV infusion 1,000 New Bag 05/12/2019 3:44 PM MANAGER DATA WAREHOUSING 1,000 mL 999 mL/hr mL at 999 mL/hr, Intravenous, CONTINUOUS, Starting 05/12/19 at 1645, Until Mon05/14/19 at 1003, RUPERT phytonadione (vitamin K1) (MEPHYTON) tablet Given 05/14/2019 9:32 AM MANAGER DATA WAREHOUSING 10 mg 10 mg 10 mg, Oral, DAILY, 3 doses, First dose on Mon05/13/19 at 1145, Last dose on Mon05/15/19 at 0900, Routine Given 05/13/2019 12:01 PM MANAGER DATA WAREHOUSING 10 mg piperacillin-tazobactam (ZOSYN) 3.375 g in Given 05/12/2019 3:38 PM MANAGER DATA WAREHOUSING 3.375 g NaCl 0.9% (NS) 100 mL MINI-BAG 3.375 g, IV Piggyback, ONCE, 1 dose, [place] 05/12/19 at 1615, 100 mL, Reason for Anti-Infective: Documented Infection, Documented Infection Site: Abdominal, Duration of Therapy: Other (see Comments) Potassium (POTASSIUM-99) Tab 1 tablet Given 05/13/2019 8:30 AM MANAGER DATA WAREHOUSING 1 tablet 1 tablet, Oral, BID, First dose on Mon05/13/19 at 0800, Until Discontinued, Routine documented in this encounter Insurance Payer Benefit Plan / Subscriber ID Effective Dates Phone Address Type Group [facility] x[facility] Medicaid COMM PLAN - PLUS t MANAGED MEDICAID documented as of this encounter
--- OUTSIDE RECORDS SUMMARY | 2019-07-28 07:05 | XMS REPORT | Summary of Care ---
:1975 Author Organization [facility] Health Address [address] [place] [address] Care Team Providers Name Role Phone Yuniel Dailey Primary Care Provider Reason for Visit Reason Comments Transition Of Care Encounter Details Date Type Department Care Team Description 05/17/2019 Transition of Care [facility] Larry Donis, [facility] Of Care [facility]- RN [address] [id number] Allergies No Known Allergiesdocumented as of this encounter (statuses as of 05/17/2019) Medications Medication Sig Dispensed Refills Start Date [...] daily as needed for Pain (scale 4-6). [id number]-mins 9 Take 1 tablet by 0 Active [...] as of this encounter (statuses as of 05/17/2019) Active Problems Problem Noted Date Spontaneous bacterial [...] as of this encounter (statuses as of 05/17/2019) Immunizations Name Administration Dates Next Due Influenza [...] ID Effective Dates Phone Address Type Group [facility] xxxxxxxxx 2019-[facility] Medicaid COMM PLAN - PLUS t MANAGED MEDICAID documented as of this encounter
--- OUTSIDE RECORDS SUMMARY | 2019-07-28 07:06 | XMS REPORT | Summary of Care ---
:1975 Author Organization [facility] - [facility] Address [address] [place] [id number] Care Team Providers Name Role Phone Raya Daileykira Sauceda Primary Care Provider Reason for Visit Auth/Cert Status Reason Specialty Diagnoses / Procedures Referred By Contact Referred To Contact Surgery Diagnoses Alcoholic cirrhosis, unspecified whether ascites present [K70.30] Hematemesis, presence of nausea not specified [K92.0] Diarrhea, unspecified type [R19.7] Liver mass [R16.0] Clc Preop Bleeding esophageal varices, unspecified esophageal varices type [I85.01] Overweight (BMI 25.0-29.9) [E66.3] Dietary counseling and surveillance [Z71.3] [address] Procedures [facility] CODING HELP [place] [address] Encounter Details Date Type Department Care Team Description 05/29/2019 Hospital Encounter [facility] Health Post January Mahmood MD [address] [place] [address] Anesthesia Care Unit Van Lopez MD [address] [facility] [place] [address] [place] [address] Allergies No Known Allergiesdocumented as of this encounter (statuses as of 05/29/2019) Medications Medication Sig Dispensed Refills Start Date [...] daily as needed for Pain (scale 4-6). ymqjaxqg-hpgf-WV-calcium-mins 9 Take 1 tablet by 0 Active [...] 3 (three) (spontaneous bacterial times daily. peritonitis) THIAMINE HCL ORAL Take by mouth. 0 Active HYDROcodone-acetaminophen 10-325 Take 1 tablet by 0 Active mg tablet mouth every 6 (six) hours as needed. documented as of this encounter (statuses as of 05/29/2019) Active Problems Problem Noted Date Spontaneous bacterial [...] as of this encounter (statuses as of 05/29/2019) Immunizations Name Administration Dates Next Due Influenza [...] Sign Reading Time Taken Comments Blood Pressure 129/78 05/29/2019 8:30 AM LANDMEN Pulse 67 05/29/2019 8:40 AM LANDMEN Temperature 36.7 C (98.1 F) 05/29/2019 8:15 AM LANDMEN Respiratory Rate 21 05/29/2019 8:35 AM LANDMEN Oxygen Saturation 100% 05/29/2019 8:35 AM LANDMEN Inhaled Oxygen Concentration - - Weight 83.8 kg (184 lb 11.9 oz) 05/29/2019 7:14 AM LANDMEN Height 175.3 cm (5' 9") 05/29/2019 7:14 AM LANDMEN Body Mass Index 27.28 05/29/2019 7:14 AM LANDMEN documented in this encounter Discharge Instructions Courtney Tobar RN - 05/29/2019Discharge Instructions (Adult) ? The medication that was used will be acting in your system for the next 24 hours. You may feel a little drowsy and have impaired judgement and motor function. This feeling should wear off. Because the medication is still in your system for the next 24 hours, you should not: o Drive a car o Operate heavy machinery o Make important decisions ? You are responsible for having someone at home with you for the first 24 hours after surgery. You should rest the remainder of the day. Move slowly. After lying down, sit on the edge of the bed or chair for a moment before standing, have someone assist you in standing as you will be a little uncoordinated, off balance and weak. Also, if you have pets in your home, watch for them as you walk around your home. ? Take a deep breath and cough every 2-4 hours while awake to open your lungs and avoid respiratory complications. If you have had abdominal surgery, you may want to guard your stomach using a pillow to reduce pain. ? Anesthesia medications could cause nausea and vomiting. Eat lightly today avoiding foods that are greasy, spicy or otherwise irritating or slow to digest. If you get sick, wait a couple of hours, then try again starting with clear fluids and advancing to bland foods. Nausea should be resolved in 24 hours. ? Expect to experience some pain, the physician has prescribed pain medication to help. Take these medications as directed. Take a stool softener such as Colace to avoid constipation if taking an opioid pain medication such as those with codeine or hydrocodone. Apply ice every hour for 20 minutes and elevate the site, if applicable, to reduce pain. If it does not help or worsens, call the access center at [phone] or [phone] and have them refer you to your physicians team. ? You may experience a sore throat from intubation for a day or two. For relief , you may use throat lozenges, throat spray, or warm salt water gargles. ? If you are unable to urinate within five hours after your procedure and you feel that you are distended, call your physicians team at [phone] or [phone]. Tips on preventing a surgical site infection: ? Dont smoke or be around smoke ? If diabetic, keep your blood glucose or sugar under control ? Wash your hands often, do not touch the wound directly ? Keep sitting water aware from incision ? If prescribed, complete the entire course of antibiotics Call your doctor if having the following signs of infection: ? Increasing tenderness at incision, especially after day 3 ? Red streaks or increased redness at incision ? Bad smelling drainage from incision ? Fever greater than 101 degrees ? General feeling of exhaustion or tiredness that does not improve Tobacco Avoidance Exposure to tobacco either from smoking or from second hand smoke or smokeless tobacco is damaging to your health. This information is to encourage everyone to avoid tobacco exposure. It is recommendedthat you: ? Quit ? If you have already quit, continue your good work ? If you do not use tobacco, do not start Additional resources You may want to contact these organizations for further information on smoking and how to quit. [place] [employer], http://www.lungusa.org/stop-smoking/ [place] [employer], http://www.cancer.org/Healthy/StayAway fromTobacco/ index [place] [employer], http://www.heart.org/HEARTORG/GettingHealthy/ QuitSmoking/QWuitSmoking_[facility]_001085_SubHomePage.jsp documented in this encounter Plan of Treatment Health Maintenance Due Date Last Done Comments DTaP,Tdap,and Td Vaccines (1 - Tdap) 1986 INFLUENZA VACCINE (#1) 2018 01/22/2018 PNEUMOCOCCAL 0-64 YEARS COMBINED SERIES ( of - 01/16/2019 11/21/2018 PPSV23) documented as of this encounter Procedures Procedure Name Priority Date/Time Associated Diagnosis Comments EGD (ENDO) Routine 05/29/2019 7:59 AM LANDMEN CONSENT/REFUSAL FOR Routine 05/29/2019 6:22 AM DIAGNOSIS AND TREATMENT LANDMEN ASSIGNMENT OF BENEFITS Routine 05/29/2019 6:21 AM LANDMEN DSU PRE-OP Routine 05/27/2019 12:01 AM LANDMEN EXTERNAL PROVIDER Routine 05/27/2019 12:01 AM RECORDS LANDMEN documented in this encounter Results Not on filedocumented in this encounter Visit Diagnoses Diagnosis Liver transplant candidate - Primary documented in this encounter Administered Medications Medication Order MAR Action Action Date Dose Rate Site lactated ringers IV infusion New Bag 05/29/2019 7:15 AM LANDMEN 1,000 mL 20 mL /hr 1,000 mL at 20 mL/hr, 1,000 mL, IV Infusion, ONCE, 1 dose, 05/29/19 at 0715, Routine, DSU Pre-op documented in this encounter Insurance Payer Benefit Plan / Subscriber ID Effective Phone Address Type Group Dates [facility] xxxxxxxxx 2019-Pre Medicaid HEALTHCARE COMM PLUS sent PLAN - MANAGED MEDICAID [facility] [id number] 2019-Pres [phone] HMO ADVANTAGE HMO ent [phone] [place] [address] documented as of this encounter
--- OUTSIDE RECORDS SUMMARY | 2019-07-28 07:06 | XMS REPORT | Summary of Care ---
:1975 Author Organization [facility] - [facility] Address [address] [place] [address] Care Team Providers Name Role Phone Сергей Dailey Primary Care Provider Reason for Referral MRI/CAT Scan (STAT) Status Reason Specialty Diagnoses / Referred By Referred To Procedures Contact Contact New Request Diagnostic Diagnoses Blood in stool Isabel Chong Radiology Procedures CT ABDOMEN PELVIS W [place] Cobos MD [address] [place] [address] [id number] [place] [address] Reason for Visit Reason Comments Other Hematochezia Auth/Cert Status Reason Specialty Diagnoses / Referred By Referred To Procedures Contact Contact Emergency Medicine Diagnoses BLOOD IN STOOL [facility] Emergency Dept [address] [place] [address] [place] [address] Encounter Details Date Type Department Care Team Description 06/07/2019 Emergency ADC-Emergency Isabel Chong Anasarca (Primary Dx); Department Blood in stool; [address] [place] [address] [address] [facility] Alcoholic cirrhosis of liver with ascites; [place] [address] [id number] Hepatocellular carcinoma; [phone] [place], [place] Anemia of chronic disease [address] Allergies No Known Allergiesdocumented as of this encounter (statuses as of 06/07/2019) Medications Medication Sig Dispensed Refills Start Date [...] daily as needed for Pain (scale 4-6). wmrkxnwi-tyup-GL-calcium-mins 9 Take 1 tablet by 0 Active [...] mouth every 6 (six) hours as needed. traMADol 50 mg Take 1 tablet by 16 tablet 0 06/02/2019 Active tabletIndications: Generalized mouth every 6 (six) abdominal pain, Enteritis, hours as needed for Colitis Pain (scale 7-10). documented as of this encounter (statuses as of 06/07/2019) Active Problems Problem Noted Date Spontaneous bacterial [...] as of this encounter (statuses as of 06/07/2019) Immunizations Name Administration Dates Next Due Influenza [...] Sign Reading Time Taken Comments Blood Pressure 128/63 06/07/2019 10:00 AM FUNDRAISING MANAGER Pulse 74 06/07/2019 10:00 AM FUNDRAISING MANAGER Temperature 36.6 C (97.9 F) 06/07/2019 7:20 AM FUNDRAISING MANAGER Respiratory Rate 23 06/07/2019 10:00 AM FUNDRAISING MANAGER Oxygen Saturation 98% 06/07/2019 10:00 AM FUNDRAISING MANAGER Inhaled Oxygen Concentration - - Weight 90.7 kg (200 lb) 06/07/2019 7:16 AM FUNDRAISING MANAGER Height - - Body Mass Index 29.53 06/02/2019 8:18 PM FUNDRAISING MANAGER documented in this encounter Discharge Instructions Isabel Henry MD - 06/07/2019 DIAGNOSIS Diagnoses that have been ruled out: None Diagnoses that are still under consideration: None Final diagnoses: Blood in stool Alcoholic cirrhosis of liver with ascites Hepatocellular carcinoma Anemia of chronic disease Anasarca NO LIFE-THREATENING FINDINGS ON TODAY'S EXAM. PROCEDURES IN THE ER TODAY: Orders Placed This Encounter Procedures CT ABDOMEN PELVIS W CONTRAST Complete Metabolic Panel CBC with Differential Lipase, Serum CBC WITH DIFFERENTIAL AMMONIA, PLASMA URINALYSIS MEDICATIONS ADMINISTERED IN THE ER TODAY AND DISCHARGE MEDICATIONS: Orders Placed This Encounter Medications FENTanyl PF (SUBLIMAZE (PF)) injection 25 mcg ondansetron (ZOFRAN (PF)) injection 4 mg iohexol (OMNIPAQUE 350 BULK-150 mL) injection 120 mL bumetanide (BUMEX) injection 1.25 mg FOLLOW-UP RECOMMENDATIONS: RECOMMEND FOLLOW-UP WITH YOUR PRIMARY CARE PROVIDER OR,HEMATOLOGY/ONCOLOGY, OR GASTROENTEROLOGY SPECIALIST IN 2-5 DAYS, ESPECIALLY IF NO IMPROVEMENT IN SYMPTOMS. CONTINUE ALL OF YOUR HOME MEDICATIONS PRESCRIBED RETURN TO ER FOR WORSENING OF SYMPTOMS documented in this encounter Plan of Treatment Name Type Priority Associated Diagnoses Date/Time CT ABDOMEN PELVIS W IMAGING STAT Blood in stool 06/07/2019 8:54 AM FUNDRAISING MANAGER CONTRAST Health Maintenance Due Date Last Done Comments DTaP,Tdap,and Td Vaccines (1 - Tdap) 1986 INFLUENZA VACCINE (#1) 2018 01/22/2018 PNEUMOCOCCAL 0-64 YEARS COMBINED SERIES (1 of 1 - 01/16/2019 11/21/2018 PPSV23) documented as of this encounter Procedures Procedure Name Priority Date/Time Associated Diagnosis Comments CT ABDOMEN PELVIS W STAT 06/07/2019 8:54 AM FUNDRAISING MANAGER Blood in stool CONTRAST Procedure Note - [facility], Radiant Results Inft User - 06/07/2019 9:50 AM FUNDRAISING MANAGER EXAM: CT ABDOMEN AND PELVIS WITH CONTRAST HISTORY: 44-year-old male with left lower quadrant pain, abdominal distention and hematochezia. Grade 1 gastroesophageal varices on endoscopy dated 05/29/2019. COMPARISON: CT abdomen and pelvis with contrast 06/02/2019. DOSE: 456mGycm TECHNIQUE AND FINDINGS: Contiguous axial imaging from the level of the lung bases through the pubic symphysis was performed after the uncomplicated administration of 120 cc of intravenous Omnipaque contrast. Coronal and sagittal reconstructions were obtained. Auto mA and/or iterative reconstruction were used to reduce radiation dose. FINDINGS: LOWER THORAX: Trace right and small left pleural effusion with bilateral lower lobe atelectasis. No cardiomegaly. LIVER: Nodular liver contour. Isoattenuating subcapsular lesion in the liver dome measuring 3.6 cm this unchanged in size from CT dated 11/15/2018 (2:20). GALLBLADDER AND BILIARY TREE: The gallbladder is hydropic measuring 13 cm in maximal dimensions. No gallbladder wall thickening is seen. No cholelithiasis. No biliary ductal dilation. SPLEEN: No splenomegaly. PANCREAS: No ductal dilation or mass. ADRENAL GLANDS: No adrenal nodules. KIDNEYS: Symmetric enhancement. No hydronephrosis, stones, or mass. PERITONEUM AND RETROPERITONEUM: No free air. Small volume perihepatic free fluid. Diffuse mesenteric edema is noted. LYMPH NODES: No enlarged lymph nodes by CT criteria. Subcentimeter periaortic lymph nodes are seen. GI TRACT: No dilation or wall thickening. Normal appendix (4:59). PELVIS/BLADDER: The urinary bladder is distended without wall thickening. Small volume pelvic free fluid. VESSELS: Main portal vein measures 1.5 cm. BONES AND SOFT TISSUES: No suspicious lytic or sclerotic bony lesions. Diffuse subcutaneous soft tissue stranding. IMPRESSION 1. Cirrhotic liver morphology with sequela of portal hypertension including small volume ascites. Subcapsular 3.4 cm lesion in the liver dome is concerning for HCC. Nonemergent evaluation with CT triple phase liver protocol is recommended. 2. Gallbladder hydrops. 3. Trace right and small left pleural effusions. 4. Anasarca. Preliminary Report Dictated by Resident: Hari London URINALYSIS STAT 06/07/2019 8:36 AM Blood in stool Results for this FUNDRAISING MANAGER procedure are in the results section. AMMONIA, PLASMA STAT 06/07/2019 8:36 AM Blood in stool Results for this FUNDRAISING MANAGER procedure are in the results section. CBC WITH DIFFERENTIAL STAT 06/07/2019 7:27 AM Blood in stool Results for this FUNDRAISING MANAGER procedure are in the results section. CBC WITH DIFFERENTIAL Routine 06/07/2019 7:27 AM Blood in stool Results for this FUNDRAISING MANAGER procedure are in the results section. COMP. METABOLIC PANEL STAT 06/07/2019 7:27 AM Blood in stool Results for this ([id number]) FUNDRAISING MANAGER procedure are in the results section. LIPASE STAT 06/07/2019 7:27 AM Blood in stool Results for this FUNDRAISING MANAGER procedure are in the results section. NOTICE OF PRIVACY Routine 06/07/2019 7:17 AM PRACTICES FUNDRAISING MANAGER documented in this encounter Results URINALYSIS (06/07/2019 8:36 AM FUNDRAISING MANAGER) APPEARANCE Clear Clear [facility] COLOR Yellow Yellow [facility] PH 7.0 4.8 - 8.0 [facility] SP GRAVITY 1.012 1.003 - 1.030 [facility] GLU U QUAL Normal Normal [facility] BLOOD NegativeComment: Negative [facility] INTERFERENCE FROM HOSPITAL LABORATORY ASCORBIC ACID MAY CAUSE FALSE NEGATIVE RESULT KETONES Negative Negative [facility] PROTEIN Negative Negative [facility] UROBILIN 2.0 mg/dL (A) Normal [facility] BILIRUBIN Negative Negative [facility] NITRITE Negative Negative [facility] LEUK [place] Negative Negative [facility] RBC/HPF 2 0 - 3 HPF [facility] WBC/HPF 5 0 - 5 HPF [facility] BACTERIA Negative Negative [facility] MUCOUS Slight (A) Negative LPF [facility] SQ EPITH <1 HPF [facility] HYAL CAST 9 (H) <=2 LPF [facility] Specimen Urine - URINE, CLEAN CATCH Performing Organization Address City/[facility]/Zipcode Phone Number [facility] CLIA: [id number], [address] [place] [address] AMMONIA, PLASMA (06/07/2019 8:36 AM FUNDRAISING MANAGER) AMMONIA 29Comment: Slight 9 - 33 umol/L [facility] LABORATORY Specimen Blood - VENOUS Performing Organization Address City/[facility]/Zipcode Phone Number [facility] CLIA: [id number], [address] [place] [address] CBC WITH DIFFERENTIAL (06/07/2019 7:27 AM FUNDRAISING MANAGER) WBC 8.55 4.20 - 10.70 [facility] 10*3/L [facility] RBC 2.46 (L) 4.26 - 5.52 [facility] 10*6/L [facility] HGB 8.6 (L) 12.2 - 16.4 [facility] g/dL [facility] HCT 25.5 (L) 38.4 - 49.3 % [facility] MCV 103.7 (H) 81.7 - 95.6 [facility] LABORATORY MCH 35.0 (H) 26.1 - 32.7 [facility] pg [facility] MCHC 33.7 31.2 - 35.0 [facility] g/dL [facility] RDW-SD 75.8 (H) 38.5 - 51.6 [facility] LABORATORY RDW-CV 19.9 (H) 12.1 - 15.4 % [facility] PLT 84 (L) 150 - 328 [facility] 10*3/L [facility] MPV 11.2 9.8 - 13.0 fL [facility] IPF % 2.9Comment: Platelet 1.2 - 10.7 % [facility] count measured by HOSPITAL fluorescence method. LABORATORY NRBC/100 WBC 0.0 0.0 - 10.0 [facility] /100 WBCs [facility] NRBC x10^3 <0.01 10*3/L [facility] GRAN MAT (NEUT) % 55.5 % [facility] IMM GRAN % 0.20 % [facility] LYMPH % 18.7 % [facility] MONO % 16.6 % [facility] EOS % 8.3 % [facility] BASO % 0.7 % [facility] GRAN MAT 4.74 1.99 - 6.95 [facility] x10^3(ANC) 10*3/uL [facility] IMM GRAN x10^3 <0.03 0.00 - 0.06 [facility] 10*3/uL HOSPITAL LABORATORY LYMPH x10^3 1.60 1.09 - 3.23 [facility] 10*3/uL HOSPITAL LABORATORY MONO x10^3 1.42 (H) 0.36 - 1.02 [facility] 10*3/uL [facility] EOS x10^3 0.71 (H) 0.06 - 0.53 [facility] 10*3/uL [facility] BASO x10^3 0.06 0.01 - 0.09 [facility] 10*3/uL [facility] Specimen Blood - VENOUS Performing Organization Address City/[facility] Phone Number [facility] CLIA: [id number], [address] [place] [address] Lipase, Serum (06/07/2019 7:27 AM FUNDRAISING MANAGER) LIPASE 229 (H) 0 - 220 U/L [facility] Specimen Blood - VENOUS Performing Organization Address [facility] [place] Number [facility] CLIA: [id number], [address] [place] [address] [address] Complete Metabolic Panel (06/07/2019 7:27 AM FUNDRAISING MANAGER) NA 138 135 - 145 [facility] mmol/L [facility] K 5.1 (H) 3.5 - 5.0 [facility] mmol/L [facility] CL 108 98 - 108 mmol/L [facility] CO2 TOTAL 22 (L) 23 - 31 mmol/L [facility] AGAP 8 2 - 16 [facility] BUN 28 (H) 7 - 23 mg/dL [facility] GLUCOSE 132 (H) 70 - 110 mg/dL [facility] CREATININE 1.36 (H) 0.60 - 1.25 [facility] mg/dL [facility] TOTAL BILI 3.6 (H) 0.1 - 1.1 mg/dL [facility] CALCIUM 8.3 (L) 8.6 - 10.6 [facility] mg/dL [facility] T PROTEIN 7.2 6.3 - 8.2 g/dL [facility] ALBUMIN 2.9 (L) 3.5 - 5.0 g/dL [facility] ALK PHOS 304 (H) 34 - 122 U/L [facility] ALTv 56 (H) 5 - 50 U/L [facility] AST(SGOT) 59 (H) 13 - 40 U/L [facility] eGFR Calculation 56.9 mL/min/1.73m2 [facility] ([facility] LABORATORY Filipino) eGFR Calculation 69.0 mL/min/1.73m2 [facility] () [facility] Specimen Blood - VENOUS Narrative Performed At Association of Glomerular Filtration Rate (GFR) [facility] and Staging of Kidney Disease* + [...] tests). Performing Organization Address City/State/Zipcode Phone Number [facility] CLIA: [id number], [address] [place] [address] documented in this encounter Visit Diagnoses Diagnosis Anasarca - Primary Edema Blood in stool Alcoholic cirrhosis of liver with ascites Alcoholic cirrhosis of liver Hepatocellular carcinoma Malignant neoplasm of liver, primary Anemia of chronic disease Anemia of other chronic disease documented in this encounter Administered Medications Medication Order MAR Action Action Date Dose Rate Site bumetanide (BUMEX) injection Given 06/07/2019 10:43 AM FUNDRAISING MANAGER 1.25 mg 1.25 mg 1.25 mg, Slow IV Push, ONCE, 1 dose, Mon06/07/19 at 1145, STAT FENTanyl PF (SUBLIMAZE (PF)) injection 25 Given 06/07/2019 8:39 AM FUNDRAISING MANAGER 25 mcg mcg 25 mcg, Slow IV Push, ONCE, 1 dose, Mon06/07/19 at 0930, STAT iohexol (OMNIPAQUE 350 BULK-150 mL) Given 06/07/2019 8:38 AM FUNDRAISING MANAGER 120 mL injection 120 mL 120 mL, Intravenous, ONCE, 1 dose, Mon06/07/19 at 0900, Routine ondansetron (ZOFRAN (PF)) injection 4 mg Given 06/07/2019 8:38 AM FUNDRAISING MANAGER 4 mg 4 mg, Slow IV Push, ONCE, 1 dose, Mon06/07/19 at 0930, RUPERT documented in this encounter Insurance Payer Benefit Plan / Subscriber ID Effective Phone Address Type Group Dates [facility] BLUE [id number] 2019-Pres [phone] [address] HMO ADVANTAGE HMO ent [phone] [place] [address] [facility] xxxxxxxxx 2019-Pre Medicaid HEALTHCARE COMM PLUS sent PLAN - MANAGED MEDICAID documented as of this encounter"
--- OUTSIDE RECORDS SUMMARY | 2019-07-28 07:07 | XMS REPORT | Summary of Care ---
:1975 Author Organization [facility] Address [address] [place] [address] Care Team Providers Name Role Phone Сергей Dailey Primary Care Provider Reason for Referral MRI/CAT Scan (STAT) Status Reason Specialty Diagnoses / Referred By Referred To Procedures Contact Contact New Request Diagnostic Diagnoses Generalized abdominal pain Silvia Hinojosa, Radiology Procedures CT ABDOMEN PELVIS W CONTRAST [employer] [address] [place] [address] Reason for Visit Reason Comments Abdominal Pain Auth/Cert Status Reason Specialty Diagnoses / Referred By Referred To Procedures Contact Contact Emergency Medicine Diagnoses ABDOMINAL PAIN [facility] [address] [place] [address] [place] [address] Encounter Details Date Type Department Care Team Description 06/02/2019 - Emergency [facility] Silvia Hinojosa, ELIJAH Generalized abdominal pain (Primary Dx); 06/03/[address] [place] [address] Enteritis; [address] [place] [address] [place] [phone] Allergies No Known Allergiesdocumented as of this encounter (statuses as of 06/03/2019) Medications Medication Sig Dispensed Refills Start Date [...] daily as needed for Pain (scale 4-6). [id number] 9 Take 1 tablet by 0 Active [...] as of this encounter (statuses as of 06/03/2019) Active Problems Problem Noted Date Spontaneous bacterial [...] as of this encounter (statuses as of 06/03/2019) Immunizations Name Administration Dates Next Due Influenza [...] Sign Reading Time Taken Comments Blood Pressure 130/79 06/03/2019 12:00 AM [employer] Pulse 76 06/03/2019 12:00 AM [employer] Temperature 36.2 C (97.2 F) 06/02/2019 8:18 PM [employer] Respiratory Rate 18 06/03/2019 12:00 AM [employer] Oxygen Saturation 99% 06/03/2019 12:00 AM [employer] Inhaled Oxygen Concentration - - Weight 83.9 kg (185 lb) 06/02/2019 8:18 PM [employer] Height 175.3 cm (5' 9") 06/02/2019 8:18 PM [employer] Body Mass Index 27.32 06/02/2019 8:18 PM [employer] documented in this encounter Discharge Instructions InstructionsSilvia Hinojosa FNP - 06/02/2019 DIAGNOSIS ICD-10-CM ICD-9-CM 1. Generalized abdominal pain R10.84 789.07 2. Enteritis K52.9 558.9 3. Colitis K52.9 558.9 NO LIFE-THREATENING FINDINGS ON TODAY'S EXAM. SPECIAL CARE INSTRUCTIONS: Stay well hydrated Follow up with PCP Return to ER as needed FOLLOW-UP RECOMMENDATIONS: RECOMMEND FOLLOW-UP WITH A PRIMARY CARE PROVIDER OR SPECIALIST IN 2-5 DAYS, ESPECIALLY IF NO IMPROVEMENT IN SYMPTOMS. TO FOLLOW-UP WITHIN THE [facility], TRY THESE OPTIONS (CLINIC APPOINTMENTS AVAILABLE ON TEEP-HS-TRCZ BASIS): 1. SCHEDULE AN APPOINTMENT ONLINE AT [email or web address] 2. OR CALL THE [facility] AT OR 3. OR CALL YOUR [facility] PHYSICIAN'S OFFICE DIRECTLY IF YOU ARE ALREADY AN ESTABLISHED [facility] PATIENT. OR, YOU MAY FOLLOW-UP WITH A PROVIDER OF YOUR CHOICE, SUCH : 1. A PHYSICIAN OF YOUR CHOICE 2. [facility] AND [facility], . LOCATIONS IN [facility] 3. [facility], [address] [place] [address]; [phone] RETURN TO ER FOR WORSENING OF SYMPTOMS. AttachmentsThe following attachments cannot be sent through Care Everywhere.Colitis, Understanding (Japanese)Gastroenteritis, Noninfectious ( Japanese)documented in this encounter Plan of Treatment Name Type Priority Associated Diagnoses Date/Time BLOOD CULTURE SCREEN LAB STAT Generalized abdominal pain 06/02/2019 8:22 PM [employer] BLOOD CULTURE SCREEN LAB STAT Generalized abdominal pain 06/02/2019 8:46 PM [employer] URINE CULTURE LAB STAT Generalized abdominal pain 06/02/2019 9:57 PM [employer] Name Type Priority Associated Diagnoses Order Schedule URINE CULTURE LAB Routine Generalized abdominal pain ONCE for 1 Occurrences starting 06/02/2019 until 06/02/2019 Health Maintenance Due Date Last Done Comments DTaP,Tdap,and Td Vaccines (1 - Tdap) 1986 INFLUENZA VACCINE (#1) 2018 01/22/2018 PNEUMOCOCCAL 0-64 YEARS COMBINED SERIES (1 of 1 - 01/16/2019 11/21/2018 PPSV23) documented as of this encounter Procedures Procedure Name Priority Date/Time Associated Comments Diagnosis LACTIC ACID WHOLE STAT 06/02/2019 11:12 Generalized Results for this BLOOD PM [employer] abdominal pain procedure are in the results section. CT ABDOMEN PELVIS W STAT 06/02/2019 9:57 Generalized Results for this CONTRAST PM [employer] abdominal pain procedure are in the results section. URINALYSIS STAT 06/02/2019 9:00 Generalized Results for this PM [employer] abdominal pain procedure are in the results section. BLOOD CULTURE SCREEN STAT 06/02/2019 8:46 Generalized PM [employer] abdominal pain CBC WITH STAT 06/02/2019 8:41 Generalized Results for this DIFFERENTIAL PM [employer] abdominal pain procedure are in the results section. LACTIC ACID WHOLE STAT 06/02/2019 8:41 Generalized Results for this BLOOD PM [employer] abdominal pain procedure are in the results section. CBC WITH Routine 06/02/2019 8:41 Generalized Results for this DIFFERENTIAL PM [employer] abdominal pain procedure are in the results section. COMP. METABOLIC STAT 06/02/2019 8:41 Generalized Results for this PANEL (76425) PM [employer] abdominal pain procedure are in the results section. AMMONIA, PLASMA STAT 06/02/2019 8:41 Generalized Results for this PM [employer] abdominal pain procedure are in the results section. MAGNESIUM STAT Add-On 06/02/2019 8:41 Generalized Results for this PM [employer] abdominal pain procedure are in the results section. LIPASE STAT 06/02/2019 8:41 Generalized Results for this PM [employer] abdominal pain procedure are in the results section. BLOOD CULTURE SCREEN STAT 06/02/2019 8:22 Generalized PM [employer] abdominal pain NOTICE OF PRIVACY Routine 06/02/2019 8:15 PRACTICES PM [employer] CONSENT/REFUSAL FOR Routine 06/02/2019 8:13 DIAGNOSIS AND PM [employer] TREATMENT documented in this encounter Results Lactic Acid Whole Blood (06/02/2019 11:12 PM [employer]) LACTIC ACID 1.32 0.50 - 2.20 mmol/L [facility] Specimen Blood - VENOUS Performing Organization Address City/State/Zipcode Phone Number [facility] CLIA: [id number], [address] [place] [address] ABDOMEN PELVIS W CONTRAST (06/02/2019 9:57 PM [employer]) Specimen Impressions Performed At Impression: PACS/VR/DOSE 1. Mild diffuse colonic wall thickening, which may reflect colitis. Portal colopathy could have a similar appearance. 2. Fluid-filled small bowel loops demonstrating mucosal fold thickening, possibly representing enteritis. 3. Cirrhosis. 4. Mild abdominal and pelvic ascites. Mesenteric edema. No free air. 5. Dilated gallbladder without radiopaque stones visualized. RL: [id number] AFC: [id number] End of Report Narrative Performed At Exam: CT Abdomen and Pelvis With Contrast, 06/02/2019 8:45 PM. PACS/VR/DOSE Ordering Physician: SILVIA HINOJOSA. History: Acute generalized abdominal pain. Technique: CT abdomen and pelvis was obtained with intravenous contrast. CT was performed according to ALARA (As Low As Reasonably Achievable). Comparison: None. Findings: CT Abdomen: Linear left basilar opacities represent either linear scar or subsegmental atelectasis. Heart size is normal. There are degenerative changes of the spine. Gallbladder is dilated, measuring over 13 cm in maximal dimension, without calcified stones visualized. Liver is nodular in contour and heterogeneous in attenuation. Spleen is mildly enlarged. Pancreas and adrenal glands are normal. There is no pancreatic or biliary duct dilatation. Kidneys are symmetric in size, enhancement, and contrast excretion. There is no hydronephrosis or hydroureter. There is mild abdominal ascites. There is hazy attenuation in the mesentery, likely representing edema. No free air is noted. There is no abdominal adenopathy. Serpiginous structures in the upper abdomen likely represent varices. Abdominal aorta is normal in caliber and demonstrates mild calcified plaque. Stomach is unremarkable. There is diffuse small bowel mucosal fold thickening. Fluid-filled, nondilated small bowel loops are noted. Several mildly distended right abdominal small bowel loops are demonstrated. There is no evidence of bowel obstruction. Appendix is normal. There is moderate colonic stool. There is mild diffuse colonic wall thickening, most pronounced in the ascending colon. CT Pelvis: Fluid-filled, nondilated small bowel loops are noted. Urinary bladder is unremarkable. Prostate and seminal vesicles are not enlarged. There is mild pelvic free fluid. There is no pelvic adenopathy. Osseous structures show degenerative changes. Procedure Note [facility], Radiant Results Inft User - 06/02/2019 10:30 PM [employer] Exam: CT Abdomen and Pelvis With Contrast, 06/02/2019 8:45 PM. Ordering Physician: SILVIA HINOJOSA. History: Acute generalized abdominal pain. Technique: CT abdomen and pelvis was obtained with intravenous contrast. CT was performed according to ALARA (As Low As Reasonably Achievable). Comparison: None. Findings: CT Abdomen: Linear left basilar opacities represent either linear scar or subsegmental atelectasis. Heart size is normal. There are degenerative changes of the spine. Gallbladder is dilated, measuring over 13 cm in maximal dimension, without calcified stones visualized. Liver is nodular in contour and heterogeneous in attenuation. Spleen is mildly enlarged. Pancreas and adrenal glands are normal. There is no pancreatic or biliary duct dilatation. Kidneys are symmetric in size, enhancement, and contrast excretion. There is no hydronephrosis or hydroureter. There is mild abdominal ascites. There is hazy attenuation in the mesentery, likely representing edema. No free air is noted. There is no abdominal adenopathy. Serpiginous structures in the upper abdomen likely represent varices. Abdominal aorta is normal in caliber and demonstrates mild calcified plaque. Stomach is unremarkable. There is diffuse small bowel mucosal fold thickening. Fluid-filled, nondilated small bowel loops are noted. Several mildly distended right abdominal small bowel loops are demonstrated. There is no evidence of bowel obstruction. Appendix is normal. There is moderate colonic stool. There is mild diffuse colonic wall thickening, most pronounced in the ascending colon. CT Pelvis: Fluid-filled, nondilated small bowel loops are noted. Urinary bladder is unremarkable. Prostate and seminal vesicles are not enlarged. There is mild pelvic free fluid. There is no pelvic adenopathy. Osseous structures show degenerative changes. IMPRESSION Impression: 1. Mild diffuse colonic wall thickening, which may reflect colitis. Portal colopathy could have a similar appearance. 2. Fluid-filled small bowel loops demonstrating mucosal fold thickening, possibly representing enteritis. 3. Cirrhosis. 4. Mild abdominal and pelvic ascites. Mesenteric edema. No free air. 5. Dilated gallbladder without radiopaque stones visualized. RL: [id number] AFC: [id number] End of Report Performing Organization Address [facility] Phone Number PACS/VR/DOSE URINALYSIS (06/02/2019 9:00 PM [employer]) APPEARANCE Hazy (A) Clear [facility] COLOR Odalys (A) Yellow [facility] PH 5.0 4.8 - 8.0 [facility] SP GRAVITY 1.021 1.003 - 1.030 [facility] GLU U QUAL 50 mg/dL (A) Normal [facility] BLOOD NegativeComment: Negative [facility] INTERFERENCE FROM HOSPITAL LABORATORY ASCORBIC ACID MAY CAUSE FALSE NEGATIVE RESULT KETONES Negative Negative [facility] PROTEIN Negative Negative [facility] UROBILIN 2.0 mg/dL (A) Normal [facility] BILIRUBIN Negative Negative [facility] NITRITE Negative Negative [facility] LEUK VALENT[place] Negative Negative [facility] RBC/HPF 1 0 - 3 HPF [facility] WBC/HPF 13 (H) 0 - 5 HPF [facility] BACTERIA Few (A) Negative [facility] MUCOUS Slight (A) Negative LPF [facility] HYAL CAST 85 (H) <=2 LPF [facility] LUIS EPITH <1 <=1 HPF [facility] GRAN CASTS 12 (H) <=1 LPF [facility] Specimen Urine - URINE, CLEAN CATCH Performing Organization Address [facility] Phone Number [facility] CLIA: [id number], [address] [place], [place] [address] [address] MAGNESIUM (06/02/2019 8:41 PM [employer]) MAGNESIUM 1.7 1.7 - 2.4 mg/dL [facility] Specimen Blood - VENOUS Performing Organization Address [facility] Phone Number [facility] CLIA: [id number], [address] [place], [place] [address] LABORAT[address] AMMONIA, PLASMA (06/02/2019 8:41 PM [employer]) AMMONIA 34 (H) 9 - 33 umol/L [facility] Specimen Blood - VENOUS Performing Organization Address City/State/Zipcode Phone Number [facility] CLIA: [id number], [address] [place] [address] CBC WITH DIFFERENTIAL (06/02/2019 8:41 PM [employer]) WBC 6.71 4.20 - 10.70 [facility] 10*3/L [facility] RBC 2.39 (L) 4.26 - 5.52 [facility] 10*6/L [facility] HGB 8.4 (L) 12.2 - 16.4 [facility] g/dL [facility] HCT 24.7 (L) 38.4 - 49.3 % [facility] MCV 103.3 (H) 81.7 - 95.6 [facility] LABORATORY MCH 35.1 (H) 26.1 - 32.7 [facility] pg [facility] MCHC 34.0 31.2 - 35.0 [facility] g/dL [facility] RDW-SD 74.1 (H) 38.5 - 51.6 [facility] LABORATORY RDW-CV 19.7 (H) 12.1 - 15.4 % [facility] PLT 87 (L) 150 - 328 [facility] 10*3/L [facility] MPV 11.7 9.8 - 13.0 fL [facility] IPF % 3.6Comment: Platelet 1.2 - 10.7 % [facility] count measured by HOSPITAL fluorescence method. LABORATORY NRBC/100 WBC 0.0 0.0 - 10.0 [facility] /100 WBCs [facility] NRBC x10^3 <0.01 10*3/L [facility] GRAN MAT (NEUT) % 62.8 % [facility] IMM GRAN % 0.30 % [facility] LYMPH % 18.8 % [facility] MONO % 12.4 % [facility] EOS % 5.1 % [facility] BASO % 0.6 % [facility] GRAN MAT 4.22 1.99 - 6.95 [facility] x10^3(ANC) 10*3/uL [facility] IMM GRAN x10^3 <0.03 0.00 - 0.06 [facility] 10*3/uL HOSPITAL LABORATORY LYMPH x10^3 1.26 1.09 - 3.23 [facility] 10*3/uL HOSPITAL LABORATORY MONO x10^3 0.83 0.36 - 1.02 [facility] 10*3/uL HOSPITAL LABORATORY EOS x10^3 0.34 0.06 - 0.53 [facility] 10*3/uL [facility] BASO x10^3 0.04 0.01 - 0.09 [facility] 10*3/uL [facility] Specimen Blood - VENOUS Performing Organization Address City/[facility] Phone Number [facility] CLIA: [id number], [address] [place] [address] LIPASE (06/02/2019 8:41 PM [employer]) LIPASE 210 0 - 220 U/L [facility] Specimen Blood - VENOUS Performing Organization Address [facility] Phone Number [facility] CLIA: [id number], [address] [place] [address] Lactic Acid Whole Blood (06/02/2019 8:41 PM [employer]) LACTIC ACID 2.42 (H) 0.50 - 2.20 mmol/L [facility] Specimen Blood - VENOUS Performing Organization Address [facility] Phone Number [facility] CLIA: [id number], [address] [place] [address] COMP. METABOLIC PANEL ([id number]) (06/02/2019 8:41 PM [employer]) NA 136 135 - 145 [facility] mmol/L [facility] K 4.7 3.5 - 5.0 [facility] mmol/L [facility] CL 103 98 - 108 mmol/L [facility] CO2 TOTAL 24 23 - 31 mmol/L [facility] AGAP 9 2 - 16 [facility] BUN 21 7 - 23 mg/dL [facility] GLUCOSE 193 (H) 70 - 110 mg/dL [facility] CREATININE 1.28 (H) 0.60 - 1.25 [facility] mg/dL [facility] TOTAL BILI 4.6 (H) 0.1 - 1.1 mg/dL [facility] CALCIUM 8.9 8.6 - 10.6 [facility] mg/dL [facility] T PROTEIN 7.1 6.3 - 8.2 g/dL [facility] ALBUMIN 3.1 (L) 3.5 - 5.0 g/dL [facility] ALK PHOS 278 (H) 34 - 122 U/L [facility] ALTv 62 (H) 5 - 50 U/L [facility] AST(SGOT) 72 (H) 13 - 40 U/L [facility] eGFR Calculation 61.1 mL/min/1.73m2 [facility] ([facility] LABORATORY [place]an) eGFR Calculation 74.0 mL/min/1.73m2 [facility] () [facility] Specimen Blood - VENOUS Narrative Performed At Association of Glomerular Filtration Rate (GFR) [facility] and Staging of Kidney Disease* + [...] tests). Performing Organization Address City/State/Zipcode Phone Number [facility] CLIA: [id number], [address] [place] [address] documented in this encounter Visit Diagnoses Diagnosis Generalized abdominal pain - Primary Abdominal pain, generalized Enteritis Other and unspecified noninfectious gastroenteritis and colitis Colitis Other and unspecified noninfectious gastroenteritis and colitis documented in this encounter Administered Medications Medication Order MAR Action Action Date Dose Rate Site FENTanyl PF (SUBLIMAZE (PF)) Given 06/02/2019 11:25 PM [employer] 50 mcg injection 50 mcg 50 mcg, Slow IV Push, ONCE, 1 dose, 06/03/19 at 0030, Routine iohexol (OMNIPAQUE 350 BULK-100 mL) Given 06/02/2019 9:53 PM [employer] 120 mL injection 120 mL 120 mL, Intravenous, ONCE, 1 dose, 06/02/19 at 2200, Routine morpHINE injection 4 mg Given 06/02/2019 8:40 PM [employer] 4 mg 4 mg, Slow IV Push, ONCE, 1 dose, 06/02/19 at 2145, STAT NaCl 0.9% (NS) bolus infusion New Bag 06/02/2019 8:40 PM [employer] 1,000 mL 999 mL/hr 1,000 mL at 999 mL/hr, 1,000 mL, IV Infusion, ONCE, 1 dose, 06/02/19 at 2145, STAT NaCl 0.9% (NS) bolus infusion New Bag 06/02/2019 9:57 PM [employer] 1,000 mL 999 mL/hr 1,000 mL at 999 mL/hr, 1,000 mL, IV Infusion, ONCE, 1 dose, 06/02/19 at 2200, STAT ondansetron (ZOFRAN (PF)) injection 4 mg Given 06/02/2019 8:40 PM [employer] 4 mg 4 mg, Slow IV Push, ONCE, 1 dose, 06/02/19 at 2145, RUPERT documented in this encounter Insurance Payer Benefit Plan / Subscriber ID Effective Phone Address Type Group Dates [facility] xxxxxxxxx 2019-Pre Medicaid [employer] PLUS sent PLAN - MANAGED [place]ID [place] [employer] BLUE [id number] 2019-Pres [phone] [employer] HMO ent [phone] [place] [address] documented as of this encounter
--- OUTSIDE RECORDS SUMMARY | 2019-07-28 07:08 | XMS REPORT | Summary of Care ---
:1975 Author Organization [facility] Address [address] [place] [address] Care Team Providers Name Role Phone Сергей Dailey Primary Care Provider Reason for Referral Radiology Services (STAT) Status Reason Specialty Diagnoses / Referred By Referred To Procedures Contact Contact New Request Diagnostic Diagnoses Fever in adult Isabel Madison Radiology Procedures XR CHEST 1 TREY Cobos MD [address] [place] [id number] [place] [address] Reason for Visit Reason Comments Fever Auth/Cert Status Reason Specialty Diagnoses / Referred By Referred To Procedures Contact Contact Emergency Medicine Diagnoses FEVER [facility] [address] [place] [address] [place] [address] Encounter Details Date Type Department Care Team Description 06/12/2019 Emergency [facility]-Emergency Isabel Madison, Acute febrile illness (Primary Dx); Department Fever in adult [address] [place] [address] [place] [address] [id number] [place], [place] [phone] Allergies No Known Allergiesdocumented as of this encounter (statuses as of 06/12/2019) Medications Medication Sig Dispensed Refills Start Date [...] 01/22/2019 Active solutionIndications: Chronic 2 (two) times daily. liver failure without hepatic coma rifAXIMin (XIFAXAN) 550 mg Take 550 mg by mouth 0 Active tablet 2 (two) times daily. gabapentin ER 300 mg tablet, Take 300 mg by mouth 0 Active extended release 24 hr 2 (two) times daily as needed for Pain (scale 4-6). ezluineh-kbsd-IP-calcium-mins 9 Take 1 tablet by 0 Active mg iron-400 mcg tablet mouth daily. zinc sulfate (ZINC-220 ORAL) Take by mouth. 0 Active HYDROXYZINE HCL ORAL Take 50 mg by mouth 0 Active every 6 (six) hours as needed for Other (anxiety). ergocalciferol, vitamin d2, Take 50,000 Units by 0 Active (VITAMIN D2) 50,000 unit mouth weekly. capsule escitalopram oxalate (LEXAPRO) Take 20 mg by mouth 0 Active 20 mg tablet daily. carisoprodol (SOMA) 350 mg Take 350 mg by mouth 0 Active tablet 4 (four) times daily as needed for [...] SBP (spontaneous bacterial peritonitis) Magnesium 250 mg Take 1 tablet by 270 tablet 0 05/16/2019 Active TabIndications: Common bile mouth 3 (three) duct dilatation, SBP times daily. (spontaneous bacterial peritonitis) THIAMINE HCL ORAL Take by mouth. 0 Active HYDROcodone-acetaminophen Take 1 tablet by 0 Active 10-325 mg tablet mouth every 6 (six) hours as needed. traMADol 50 mg Take 1 tablet by 16 tablet 0 06/02/2019 Active tabletIndications: Generalized mouth every 6 (six) abdominal pain, Enteritis, hours as needed for Colitis Pain (scale 7-10). dicyclomine 20 mg Take 1 tablet by 20 tablet 0 06/12/2019 Active tabletIndications: Acute mouth every 6 (six) febrile illness hours as needed for Abdominal pain. ondansetron (ZOFRAN) 4 mg Take 1 tablet by 12 tablet 0 06/12/2019 Active tabletIndications: Acute mouth every 8 febrile illness (eight) hours as needed for Nausea and Vomiting (N/V). documented as of this encounter (statuses as of 06/12/2019) Active Problems Problem Noted Date Spontaneous bacterial [...] as of this encounter (statuses as of 06/12/2019) Immunizations Name Administration Dates Next Due Influenza [...] Sign Reading Time Taken Comments Blood Pressure 139/79 06/12/2019 12:20 AM NUCLEAR OPERATOR Pulse 80 06/12/2019 12:20 AM NUCLEAR OPERATOR Temperature 37.9 C (100.3 F) 06/12/2019 12:20 AM NUCLEAR OPERATOR Respiratory Rate 12 06/12/2019 12:20 AM NUCLEAR OPERATOR Oxygen Saturation 97% 06/12/2019 12:20 AM NUCLEAR OPERATOR Inhaled Oxygen Concentration - - Weight 90.7 kg (200 lb) 06/12/2019 12:20 AM NUCLEAR OPERATOR Height 175.3 cm (5' 9") 06/12/2019 12:20 AM NUCLEAR OPERATOR Body Mass Index 29.53 06/12/2019 12:20 AM NUCLEAR OPERATOR documented in this encounter Discharge Instructions Isabel Henry MD - 06/12/2019 DIAGNOSIS Diagnoses that have been ruled out: None Diagnoses that are still under consideration: None Final diagnoses: Fever in adult Acute febrile illness NO LIFE-THREATENING FINDINGS ON TODAY'S EXAM. PROCEDURES IN THE ER TODAY: Orders Placed This Encounter Procedures XR CHEST 1 VW URINALYSIS CBC WITH DIFF COMP. METABOLIC PANEL (02066) ADC,CLC OR LCC ONLY - INFLUENZA A & B DIRECT ANTIGEN AMMONIA, PLASMA LIPASE CBC WITH DIFFERENTIAL MEDICATIONS ADMINISTERED IN THE ER TODAY AND DISCHARGE MEDICATIONS: No orders of the defined types were placed in this encounter. FOLLOW-UP RECOMMENDATIONS: RECOMMEND FOLLOW-UP WITH A PRIMARY CARE PROVIDER OR SPECIALIST IN 2-5 DAYS, ESPECIALLY IF NO IMPROVEMENT IN SYMPTOMS. MAY FOLLOW-UP WITH A PROVIDER OF YOUR CHOICE, SUCH : 1. A PHYSICIAN OF YOUR CHOICE 2. [facility], . LOCATIONS IN [facility] 3. [facility], [address] [place] [address]; [phone] OR, IF YOU WISH TO FOLLOW-UP WITHIN THE [facility], MAY TRY THESE OPTIONS (CLINIC APPOINTMENTS AVAILABLE ON [id number] BASIS): 1. SCHEDULE AN APPOINTMENT ONLINE AT [facility] 2. OR CALL THE [facility] AT OR 3. OR CALL YOUR [facility] PHYSICIAN'S OFFICE DIRECTLY IF YOU ARE ALREADY AN ESTABLISHED [facility] PATIENT. RETURN TO ER FOR WORSENING OF SYMPTOMS documented in this encounter Plan of Treatment Health Maintenance Due Date Last Done Comments DTaP,Tdap,and Td Vaccines (1 - Tdap) 1986 INFLUENZA VACCINE (#1) 2018 01/22/2018 PNEUMOCOCCAL 0-64 YEARS COMBINED SERIES (2 of 3 - 01/16/2019 11/21/2018 PPSV23) documented as of this encounter Procedures Procedure Name Priority Date/Time Associated Comments Diagnosis XR CHEST 1 VW STAT 06/12/2019 2:02 Fever in adult Results for this AM NUCLEAR OPERATOR procedure are in the results section. CBC WITH DIFFERENTIAL STAT 06/12/2019 1:24 Fever in adult Results for this AM NUCLEAR OPERATOR procedure are in the results section. ADC,CLC OR LCC ONLY - STAT 06/12/2019 1:24 Fever in adult Results for this INFLUENZA A & B AM NUCLEAR OPERATOR procedure are in DIRECT ANTIGEN the results section. URINALYSIS STAT 06/12/2019 1:24 Fever in adult Results for this AM NUCLEAR OPERATOR procedure are in the results section. CBC WITH DIFFERENTIAL STAT 06/12/2019 1:24 Fever in adult Results for this AM NUCLEAR OPERATOR procedure are in the results section. COMP. METABOLIC PANEL STAT 06/12/2019 1:24 Fever in adult Results for this (89980) AM NUCLEAR OPERATOR procedure are in the results section. AMMONIA, PLASMA STAT 06/12/2019 1:24 Fever in adult Results for this AM NUCLEAR OPERATOR procedure are in the results section. LIPASE STAT 06/12/2019 1:24 Fever in adult Results for this AM NUCLEAR OPERATOR procedure are in the results section. ASSIGNMENT OF Routine 06/12/2019 12:47 BENEFITS AM NUCLEAR OPERATOR NOTICE OF PRIVACY Routine 06/12/2019 12:12 PRACTICES AM NUCLEAR OPERATOR CONSENT/REFUSAL FOR Routine 06/12/2019 12:12 DIAGNOSIS AND AM NUCLEAR OPERATOR TREATMENT documented in this encounter Results XR CHEST 1 VW (06/12/2019 2:02 AM NUCLEAR OPERATOR) Specimen Impressions Performed At PACS/VR/DOSE No radiographic cardiopulmonary disease. RL: [id number] Narrative Performed At ORDERING PHYSICIAN: ISABEL MADISON PACS/VR/DOSE CLINICAL HISTORY: Acute fever TECHNIQUE: Frontal view of chest COMPARISON: None available. FINDINGS: The cardiac silhouette is within normal limits. Lungs are clear. Osseous structures are normal. Procedure Note [facility], Radiant Results Inft User - 06/12/2019 2:06 AM NUCLEAR OPERATOR ORDERING PHYSICIAN: ISABEL MADISON CLINICAL HISTORY: Acute fever TECHNIQUE: Frontal view of chest COMPARISON: None available. FINDINGS: The cardiac silhouette is within normal limits. Lungs are clear. Osseous structures are normal. IMPRESSION No radiographic cardiopulmonary disease. RL: [id number] Performing Organization Address City/State/Zipcode Phone Number PACS/VR/DOSE CBC WITH DIFFERENTIAL (06/12/2019 1:24 AM NUCLEAR OPERATOR) WBC 5.92 4.20 - 10.70 [facility] 10*3/L [facility] RBC 2.69 (L) 4.26 - 5.52 [facility] 10*6/L [facility] HGB 9.2 (L) 12.2 - 16.4 [facility] g/dL [facility] HCT 26.8 (L) 38.4 - 49.3 % [facility] MCV 99.6 (H) 81.7 - 95.6 [facility]OR[facility]ORY MCH 34.2 (H) 26.1 - 32.7 [facility] LABORATORY MCHC 34.3 31.2 - 35.0 [facility] g/dL [facility] RDW-SD 67.4 (H) 38.5 - 51.6 [facility] LABORATORY RDW-CV 18.6 (H) 12.1 - 15.4 % [facility] PLT 77 (L) 150 - 328 [facility] 10*3/L [facility] MPV 11.0 9.8 - 13.0 fL [facility] IPF % 2.3Comment: Platelet 1.2 - 10.7 % [facility] count measured by HOSPITAL fluorescence method. LABORATORY NRBC/100 WBC 0.0 0.0 - 10.0 [facility] /100 WBCs [facility] NRBC x10^3 <0.01 10*3/L [facility] GRAN MAT (NEUT) % 64.0 % [facility] IMM GRAN % 0.30 % [facility] LYMPH % 18.4 % [facility] MONO % 15.4 % [facility] EOS % 1.4 % [facility] BASO % 0.5 % [facility] GRAN MAT 3.79 1.99 - 6.95 [facility] x10^3(ANC) 10*3/uL HOSPITAL LAB[facility] IMM GRAN x10^3 <0.03 0.00 - 0.06 [facility] 10*3/uL [facility] LYMPH x10^3 1.09 1.09 - 3.23 [facility] 10*3/uL [facility] MONO x10^3 0.91 0.36 - 1.02 [facility] 10*3/uL [facility]ITAL LAB[facility] EOS x10^3 0.08 0.06 - 0.53 [facility] 10*3/uL [facility] BASO x10^3 0.03 0.01 - 0.09 [facility] 10*3/uL [facility] LAB[facility]ORY Specimen Blood - ARM, RIGHT Performing Organization Address [facility] Cent[facility]ode Phone Number [facility] CLIA: [id number], [address] [place] [address] LIPASE (06/12/2019 1:24 AM NUCLEAR OPERATOR) LIPASE 127 0 - 220 U/L [facility] Specimen Blood - ARM, RIGHT Performing Organization Address [facility] Centercomt Phone Number [facility] CLIA: [id number], [address] [place] [address] AMMONIA, PLASMA (06/12/2019 1:24 AM NUCLEAR OPERATOR) AMMONIA 29 9 - 33 umol/L [facility] Specimen Blood - ARM, RIGHT Performing Organization Address [facility] Centercode Phone Number [facility] CLIA: [id number], [address] [place] [address] ADC,CLC OR LCC ONLY - INFLUENZA A & B DIRECT ANTIGEN (06/12/2019 1:24 AM NUCLEAR OPERATOR) Influenza A Negative Negative [facility] Influenza B Negative Negative [facility] Specimen Swab - NARE, LEFT SIDE Performing Organization Address [facility] Centercode Phone Number [facility] CLIA: [id number], [address] [place] [address] COMP. METABOLIC PANEL (13331) (06/12/2019 1:24 AM NUCLEAR OPERATOR) NA 133 (L) 135 - 145 [facility] mmol/L [facility] K 4.2 3.5 - 5.0 [facility] mmol/L [facility] CL 102 98 - 108 mmol/L [facility] CO2 TOTAL 24 23 - 31 mmol/L [facility] AGAP 7 2 - 16 [facility] BUN 11 7 - 23 mg/dL [facility] GLUCOSE 133 (H) 70 - 110 mg/dL [facility] CREATININE 1.03 0.60 - 1.25 [facility] mg/dL [facility] TOTAL BILI 3.4 (H) 0.1 - 1.1 mg/dL [facility] CALCIUM 8.8 8.6 - 10.6 [facility] mg/dL [facility] T PROTEIN 7.3 6.3 - 8.2 g/dL [facility] ALBUMIN 3.0 (L) 3.5 - 5.0 g/dL [facility] ALK PHOS 271 (H) 34 - 122 U/L [facility] ALTv 59 (H) 5 - 50 U/L [facility] AST(SGOT) 75 (H) 13 - 40 U/L [facility] eGFR Calculation 78.5 mL/min/1.73m2 [facility] Bahamian) eGFR Calculation 95.1 mL/min/1.73m2 [facility] ([facility]) [facility] Specimen Blood - ARM, RIGHT Narrative Performed At Association of Glomerular Filtration Rate (GFR) [facility] and Staging of Kidney Disease* [...] abnormalities in imaging tests). Performing Organization Address City/[facility]/Zipcode Phone Number [facility] CLIA: [id number], [address] [place] [address] URINALYSIS (06/12/2019 1:24 AM NUCLEAR OPERATOR) APPEARANCE Clear Clear [facility] COLOR Odalys (A) Yellow [facility] PH 6.0 4.8 - 8.0 [facility] SP GRAVITY 1.018 1.003 - 1.030 [facility] GLU U QUAL Normal Normal [facility] BLOOD Negative Negative [facility] KETONES Negative Negative [facility] PROTEIN Negative Negative [facility] UROBILIN 2.0 mg/dL (A) Normal [facility] BILIRUBIN Negative Negative [facility] NITRITE Negative Negative [facility] [place] Negative Negative [facility] RBC/HPF 5 (H) 0 - 3 HPF [facility] WBC/HPF 3 0 - 5 HPF [facility] BACTERIA Negative Negative [facility] MUCOUS Slight (A) Negative LPF [facility] SQ EPITH <1 HPF [facility] HYAL CAST 28 (H) <=2 LPF [facility] Specimen Urine - URINE, CLEAN CATCH Performing Organization Address City/[facility]/Zipcode Phone Number [facility] CLIA: [id number], [address] [place] [address] documented in this encounter Visit Diagnoses Diagnosis Acute febrile illness - Primary Fever, unspecified Fever in adult documented in this encounter Insurance Payer Benefit Plan / Subscriber ID Effective Phone Address Type Group Dates [facility] ALVARO MELISSALEAH FITZGERALD [id number] 2019-Pres [phone] [address] HMO ADVANTAGE HMO ent [phone] [place] [address] [facility] xxxxxxxxx 2019-Pre Medicaid HEALTHCARE COMM PLUS sent PLAN - MANAGED MEDICAID documented as of this encounter
--- OUTSIDE RECORDS SUMMARY | 2019-07-28 07:08 | XMS REPORT | Summary of Care ---
:1975 Author Organization [facility] - [facility] Address [address] [place] [address] Care Team Providers Name Role Phone Сергей Dailey Primary Care Provider Reason for Visit Reason Comments Intake Referral Liver Txpl Eval Encounter Details Date Type Department Care Team Description 06/13/2019 Telephone [facility] Transplant- Jv Couch Intake Referral [place] [facility] (Liver Txpl Eval ) [facility] [address] [phone] Allergies No Known Allergiesdocumented as of this encounter (statuses as of 06/13/2019) Medications Medication Sig Dispensed Refills Start Date [...] daily as needed for Pain (scale 4-6). tlbkjbrn-iwlf-EL-calcium-mins 9 Take 1 tablet by 0 Active [...] as of this encounter (statuses as of 06/13/2019) Active Problems Problem Noted Date Spontaneous bacterial [...] as of this encounter (statuses as of 06/13/2019) Immunizations Name Administration Dates Next Due Influenza [...] ID Effective Phone Address Type Group Dates [facility] ALVARO FITZGERALD [id number] 2019-Pres [phone] [address] HMO ADVANTAGE HMO ent [phone] [place] [address] [facility] xxxxxxxxx 2019-Pre Medicaid HEALTHCARE COMM PLUS sent PLAN - MANAGED MEDICAID documented as of this encounter
--- OUTSIDE RECORDS SUMMARY | 2019-07-28 07:09 | XMS REPORT | Summary of Care ---
:1975 Author Organization [facility] - Health Address [address] [place] [address] Care Team Providers Name Role Phone Сергей Dailey Sohail Primary Care Provider Encounter Details Date Type Department Care Team Description 06/13/2019 Orders Only [facility] Doctor Unassigned, No 301 [facility] Name [place], [place] [id number] [place] [address] Allergies No Known Allergiesdocumented as of this [...] daily as needed for Pain (scale 4-6). piwmgixb-iumb-QN-calcium-mins 9 Take 1 tablet by 0 Active [...] Procedure Name Priority Date/Time Associated Diagnosis Comments TRANSPLANT/EXTERNAL Routine 06/13/2019 12:01 AM SECTION PLOTTER OPERATOR PROVIDED - REFERRAL PACKET documented in this encounter Results Not on filedocumented in this encounter Insurance Payer Benefit Plan / Subscriber ID Effective Phone Address Type Group Dates BCBS [facility] BCLEAH FITZGERALD [id number] 2019-Pres [phone] [address] HMO ADVANTAGE HMO ent [phone] [place] [address] [facility] xxxxxxxxx 2019-Pre Medicaid HEALTHCARE COMM PLUS sent PLAN - MANAGED MEDICAID documented as of this encounter
--- OUTSIDE RECORDS SUMMARY | 2019-07-28 07:09 | XMS REPORT ---
:1975 Author Organization [employer] Care Team Providers Name Role Phone Asim [facility] Provider Role Unavailable Allergies No Known Allergies Problems Problem Type Condition Code Onset Dates Condition Status Problem Seasonal allergies J30.2 Active Problem Other chronic pain G89.29 Active Problem Generalized anxiety disorder F41.1 Active Problem Insomnia, unspecified type G47.00 Active Problem Current moderate episode of major F32.1 Active depressive disorder without prior episode Problem Secondary esophageal varices with I85.11 Active bleeding Problem Peripheral edema R60.9 Active Problem Jaundice R17 Active Problem Hepatocellular carcinoma C22.0 Active Problem Vitamin D deficiency E55.9 Active Assessment Hepatocellular carcinoma C22.0 Active Problem Anxiety F41.9 Active Problem Liver lesion K76.9 Active Problem Erectile dysfunction, unspecified N52.9 Active erectile dysfunction type Problem History of alcohol abuse F10.11 Active Problem Alcoholic cirrhosis of liver with K70.31 Active ascites Medications No Known Medications Results No Known Results Summary Purpose [employer] Digital Submission
--- OUTSIDE RECORDS SUMMARY | 2019-07-28 07:10 | XMS REPORT | Summary of Care ---
:1975 Author Organization [facility] - Health Address [address] [place] [address] Care Team Providers Name Role Phone Сергей Dailey Sohail Primary Care Provider Encounter Details Date Type Department Care Team Description 06/14/2019 Hospital Encounter [facility] Tissue Antigen Lab Jv Couch Registration MD [facility] [address] [place] [phone] Allergies No Known Allergiesdocumented as of this encounter (statuses as of 06/17/2019) Medications Medication Sig Dispensed Refills Start Date [...] daily as needed for Pain (scale 4-6). yialmzzx-mmco-BS-calcium-mins 9 Take 1 tablet by 0 Active [...] as of this encounter (statuses as of 06/17/2019) Active Problems Problem Noted Date Spontaneous bacterial [...] as of this encounter (statuses as of 06/17/2019) Immunizations Name Administration Dates Next Due Influenza [...] ID Effective Phone Address Type Group Dates [id number] 2019-Pres [phone] [address] B[address] HMO ADVANTAGE HMO ent [phone] [place] [address] [facility] xxxxxxxxx 2019-Pre Medicaid HEALTHCARE COMM PLUS sent PLAN - MANAGED MEDICAID documented as of this encounter
--- OUTSIDE RECORDS SUMMARY | 2019-07-28 07:10 | XMS REPORT | Summary of Care ---
:1975 Author Organization [facility] - [facility] Address [address] [place] [address] Care Team Providers Name Role Phone Asim Сергей Sauceda Primary Care Provider Encounter Details Date Type Department Care Team Description 06/14/2019 Letter (Out) [facility] Transplant- Jv Couch [place] [facility] [address] [phone] Allergies No Known Allergiesdocumented as of this encounter (statuses as of 06/14/2019) Medications Medication Sig Dispensed Refills Start Date [...] daily as needed for Pain (scale 4-6). vqfpwdet-xtzk-HA-calcium-mins 9 Take 1 tablet by 0 Active [...] as of this encounter (statuses as of 06/14/2019) Active Problems Problem Noted Date Spontaneous bacterial [...] as of this encounter (statuses as of 06/14/2019) Immunizations Name Administration Dates Next Due Influenza [...] Address Type Group Dates [facility] BCBS LIA [id number] 2019-Pres [phone] P O BOX HMO ADVANTAGE HMO [facility] [phone] [place] [address] [facility] xxxxxxxxx 2019-Pre Medicaid HEALTHCARE COMM PLUS sent PLAN - MANAGED MEDICAID documented as of this encounter
--- OUTSIDE RECORDS SUMMARY | 2019-07-28 07:10 | XMS REPORT | Summary of Care ---
:1975 Author Organization [facility] - [facility] Address [address] [place] [address] Care Team Providers Name Role Phone Asim Сергей Sauceda Primary Care Provider Encounter Details Date Type Department Care Team Description 06/14/2019 Letter (Out) [facility] Transplant- Jv Couch [place] Mult[facility]pecialty [facility] [address] [phone] Allergies No Known Allergiesdocumented as of [...] daily as needed for Pain (scale 4-6). nsiexhfb-rtrn-PB-calcium-mins 9 Take 1 tablet by 0 Active [...] Address Type Group Dates BCBS [facility] BCBS LIA [id number] 2019-Pres [phone] P O BOX HMO ADVANTAGE HMO [facility] [phone] [place] [address] [facility] xxxxxxxxx 2019-Pre Medicaid HEALTHCARE COMM PLUS sent PLAN - MANAGED MEDICAID documented as of this encounter
--- OUTSIDE RECORDS SUMMARY | 2019-07-28 07:11 | XMS REPORT | Summary of Care ---
:1975 Author Organization [facility] - [facility] Address [address] [place] [address] Care Team Providers Name Role Phone Сергей Dailey Primary Care Provider Reason for Visit Reason Comments Pre Evaluation Appointment Encounter Details Date Type Department Care Team Description 06/17/2019 Telephone [facility] Gladis Couch, Pre Evaluation; Transplant-[place] Appointment Multispecialty [address] [phone] Allergies No Known Allergiesdocumented as of this [...] daily as needed for Pain (scale 4-6). nzeuvswr-ehft-SA-calcium-mins 9 Take 1 tablet by 0 Active [...] Effective Phone Address Type Group Dates BCBS [facility] BCLEAH FITZGERALD [id number] 2019-Pres [phone] P O BOX HMO ADVANTAGE HMO [facility] [phone] [place] [address] [facility] xxxxxxxxx 2019-Pre Medicaid HEALTHCARE COMM PLUS sent PLAN - MANAGED MEDICAID documented as of this encounter
--- OUTSIDE RECORDS SUMMARY | 2019-07-28 07:12 | XMS REPORT | Summary of Care ---
:1975 Author Organization [facility] - [facility] Address [address] [place] [address] Care Team Providers Name Role Phone Сергей Dailey Primary Care Provider Reason for Visit Reason Comments Pre Evaluation Appointment Encounter Details Date Type Department Care Team Description 06/17/2019 Telephone [facility] Gladis Couch, Pre Evaluation; Trans[place] Appointment Multispecialty [address] [address] [phone] Allergies No Known Allergiesdocumented as of this encounter (statuses as of 06/18/2019) Medications Medication Sig Dispensed Refills Start Date [...] daily as needed for Pain (scale 4-6). lwdzznmy-dxon-FY-calcium-mins 9 Take 1 tablet by 0 Active [...] as of this encounter (statuses as of 06/18/2019) Active Problems Problem Noted Date Spontaneous bacterial [...] as of this encounter (statuses as of 06/18/2019) Immunizations Name Administration Dates Next Due Influenza [...] Address Type Group Dates BCBS [facility] BCLEAH FITZGERALD [id number] 2019-Pres [phone] [address] HMO ADVANTAGE HMO [facility] [phone] [place] [address] [facility] xxxxxxxxx 2019-Pre Medicaid HEALTHCARE COMM PLUS sent PLAN - MANAGED MEDICAID documented as of this encounter
--- OUTSIDE RECORDS SUMMARY | 2019-07-28 07:12 | XMS REPORT | Summary of Care ---
:1975 Author Organization [facility] - [facility] Address [address] [place] [address] Care Team Providers Name Role Phone Сергей Dailey Primary Care Provider Reason for Visit Reason Comments Intake Referral Liver Txpl Eval Encounter Details Date Type Department Care Team Description 06/13/2019 Telephone [facility] Transplant- Jv Couch Intake Referral MackayLayla Guillaume MD (Liver Txpl Eval ) [facility] [address] [phone] Allergies No Known Allergiesdocumented [...] daily as needed for Pain (scale 4-6). bdvfsvhc-nwnr-AK-calcium-mins 9 Take 1 tablet by 0 Active [...] Effective Phone Address Type Group Dates BCBS [facility] ALVARO FITZGERALD [id number] 2019-Pres [phone] [address] BOX HMO ADVANTAGE HMO ent [phone] [place] [address] [facility] xxxxxxxxx 2019-Pre Medicaid HEALTHCARE COMM PLUS sent PLAN - MANAGED MEDICAID documented as of this encounter
--- OUTSIDE RECORDS SUMMARY | 2019-07-28 07:13 | XMS REPORT | Summary of Care ---
:1975 Author Organization [facility] - Health Address [address] [place] [address] Care Team Providers Name Role Phone Asim Сергей Sauceda Primary Care Provider Reason for Visit Reason Comments Blood Draw Encounter Details Date Type Department Care Team Description 06/21/2019 Grounding Engineer Visit [facility] SERVICES AT [facility] Gladis Couch MD [address] [place] [address] Pre-transplant evaluation for chronic liver disease; [facility] Acute upper GI bleed [address] [place] [phone] Allergies No Known Allergiesdocumented as of this encounter (statuses as of 06/21/2019) Medications Medication Sig Dispensed Refills Start Date [...] daily as needed for Pain (scale 4-6). tkjlgstj-fzvc-ES-calcium-mins 9 Take 1 tablet by 0 Active [...] as of this encounter (statuses as of 06/21/2019) Active Problems Problem Noted Date Spontaneous bacterial [...] as of this encounter (statuses as of 06/21/2019) Immunizations Name Administration Dates Next Due Influenza [...] filedocumented in this encounter Plan of Treatment Date Type Specialty Care Team Description 06/21/2019 Office Visit Gastroenterology Gladis Couch MD [address] [place] [address] [phone] Name Type Priority Associated Diagnoses Date/Time GALV ONLY - SYPHILIS IGG/IGM LAB Routine Pre-transplant 06/21/2019 9:54 AM evaluation for chronic 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 FILTER CLE[employer]ER liver disease HIV 1/2 AG-AB WITH REFLEX LAB Routine Pre-transplant 06/21/2019 9:54 AM evaluation for chronic [employer] liver disease VZV ANTIBODY SCREEN(aka LAB Routine Pre-transplant 06/21/2019 9:54 AM VARICELLA ANTIBODY) evaluation for chronic [employer] liver disease RUBELLA SCREEN (LANCE) IGG LAB Routine Pre-transplant 06/21/2019 9:54 AM evaluation for chronic [employer] liver disease MEASLES IGG LAB Routine Pre-transplant 06/21/2019 9:54 AM evaluation for chronic W[employer] CLE[employer]ER liver disease CYTOMEGALOVIRUS ANTIBODY LAB Routine Pre-transplant 06/21/2019 9:54 AM IGG(aka CMV ANTIBODY, IGG) evaluation for chronic [employer] liver disease EBV AB TO NUCLEAR AG,IGG LAB Routine Pre-transplant 06/21/2019 9:54 AM evaluation for chronic W[employer] liver disease HAV ANTIBODY (IGG AND IGM) LAB Routine Pre-transplant 06/21/2019 9:54 AM evaluation for chronic W[employer] CLE[employer]ER liver disease HCV ANTIBODY LAB Routine Pre-transplant 06/21/2019 9:54 AM evaluation for chronic W[employer]ER liver disease HBC ANTIBODY (IGM & IGG) LAB Routine Pre-transplant 06/21/2019 9:54 AM evaluation for chronic [employer] liver disease HEPATITIS B SURFACE ANTIBODY LAB Routine Pre-transplant 06/21/2019 9:54 AM evaluation for chronic W[employer] liver disease HEPATITIS B SURFACE ANTIGEN LAB Routine Pre-transplant 06/21/2019 9:54 AM evaluation for chronic [employer] liver disease URINE DRUG (LCMSMS) - LAB Routine Pre-transplant 06/21/2019 10:00 AM COMPREHENSIVE DRUG PANEL evaluation for chronic [employer] liver disease TEST, SERUM LAB Routine Pre-transplant 06/21/2019 9:54 AM evaluation for chronic [employer] liver disease THYROXINE, TOTAL(aka T4) (if LAB Routine Pre-transplant 06/21/2019 9:54 AM TSH abnormal) evaluation for chronic [employer] liver disease TRIIODOTHYRONINE, LEVEL LAB Routine Pre-transplant 06/21/2019 9:54 AM evaluation for chronic [employer] liver disease THYROID STIMULATING LAB Routine Pre-transplant 06/21/2019 9:54 AM HORMONE(aka TSH) evaluation for chronic [employer] liver disease TOTAL IRON BINDING CAPACITY LAB Routine Pre-transplant 06/21/2019 9:54 AM evaluation for chronic W[employer] CLE[employer]ER liver disease IRON SERUM LAB Routine Pre-transplant 06/21/2019 9:54 AM evaluation for chronic [employer] liver disease ALPHA FETOPROTEIN(aka AFP) LAB Routine Pre-transplant 06/21/2019 9:54 AM evaluation for chronic W[employer] liver disease CBC WITH DIFF LAB Routine Pre-transplant 06/21/2019 9:54 AM evaluation for chronic W[employer] liver disease CHOLESTEROL LAB Routine Pre-transplant 06/21/2019 9:54 AM evaluation for chronic W[employer] CLE[employer]ER liver disease ANTI-NUCLEAR ANTIBODY LAB Routine Pre-transplant 06/21/2019 9:54 AM SCREEN(aka ORLANDO (EIA)) evaluation for chronic W[employer] CLE[employer]ER liver disease FERRITIN SERUM LAB Routine Pre-transplant 06/21/2019 9:54 AM evaluation for chronic W[employer] CLE[employer] liver disease ACTIVATED PARTIAL THRMPLAS LAB Routine Pre-transplant 06/21/2019 9:54 AM FRANCISCA(aka PTT) evaluation for chronic [employer] liver disease PROTHROMBIN TIME / INR LAB Routine Pre-transplant 06/21/2019 9:54 AM evaluation for chronic [employer] liver disease GLYCOSYLATED HEMOGLOBIN LAB Routine Pre-transplant 06/21/2019 9:54 AM (A1C) evaluation for chronic [employer] liver disease GAMMA LAB Routine Pre-transplant 06/21/2019 9:54 AM GLUTAMYLTRANSFERASE(aka GGT) evaluation for chronic [employer] liver disease HEPATIC FUNCTION PANEL LAB Routine Pre-transplant 06/21/2019 9:54 AM (25390) (ALB,T.PRO,BILI evaluation for chronic W[employer] FILTER CLE[employer]ER T,BU/BC,ALT,AST,ALK PHOS) liver disease URINE DRUG (LCMSMS) - LAB Routine Pre-transplant 06/21/2019 10:00 AM ETHANOL METABOLITE PANEL evaluation for chronic [employer] liver disease BASIC METABOLIC PANEL (NA, LAB Routine Pre-transplant 06/21/2019 9:54 AM K, CL, CO2, GLUCOSE, BUN, evaluation for chronic [employer]ER CREATININE, CA)(aka BMP) liver disease MAGNESIUM, URINE RANDOM LAB Routine Pre-transplant 06/21/2019 10:00 AM evaluation for chronic [employer] liver disease HSV 1 AND 2 GLYCOPROTEIN G LAB Routine Pre-transplant 06/21/2019 9:54 AM IGG evaluation for chronic [employer] liver disease IMMUNOGLOBULIN G A M PANEL LAB Routine Pre-transplant 06/21/2019 9:54 AM evaluation for chronic [employer] liver disease QUANTIFERON-TB GOLD LAB Routine Pre-transplant 06/21/2019 9:54 AM evaluation for chronic [employer] liver disease TOXOPLASMA IGG ANTIBODY LAB Routine Pre-transplant 06/21/2019 9:54 AM evaluation for chronic [employer] liver disease ZINC, SERUM LAB Routine Pre-transplant 06/21/2019 9:54 AM evaluation for chronic [employer] liver disease CRYPTOCOCCAL ANTIGEN LAB Routine Pre-transplant 06/21/2019 9:54 AM CSF/SERUM evaluation for chronic [employer] liver disease VITAMIN A, SERUM OR PLASMA LAB Routine Pre-transplant 06/21/2019 9:54 AM evaluation for chronic [employer] liver disease VITAMIN D, 25-OH LAB Routine Pre-transplant 06/21/2019 9:54 AM evaluation for chronic W[employer] liver disease VITAMIN E, SERUM OR PLASMA LAB Routine Pre-transplant 06/21/2019 9:54 AM evaluation for chronic W[employer] liver disease VITAMIN K1, LEVEL LAB Routine Pre-transplant 06/21/2019 9:54 AM evaluation for chronic [employer] liver disease CREATININE, URINE RANDOM LAB Routine Pre-transplant 06/21/2019 10:00 AM evaluation for chronic W[employer] liver disease TOTAL PROTEIN, URINE RANDOM LAB Routine Pre-transplant 06/21/2019 10:00 AM evaluation for chronic [employer] liver disease SODIUM, URINE RANDOM LAB Routine Pre-transplant 06/21/2019 10:00 AM evaluation for chronic W[employer] liver disease G6PD SCREENING TEST LAB Routine Pre-transplant 06/21/2019 9:54 AM evaluation for chronic [employer] liver disease Urinalysis LAB [facility] Acute upper GI bleed 06/21/2019 10:00 AM WATER [employer]TER CLE[employer]ER CBC WITH DIFFERENTIAL LAB Routine Pre-transplant 06/21/2019 9:54 AM evaluation for chronic W[employer] liver disease Health Maintenance Due Date Last Done Comments DTaP,Tdap,and Td Vaccines (1 - Tdap) 1986 INFLUENZA VACCINE (#1) 2018 01/22/2018 PNEUMOCOCCAL 0-64 YEARS COMBINED SERIES (2 of 3 - 01/16/2019 11/21/2018 PPSV23) documented as of this encounter Results Not on filedocumented in this encounter Visit Diagnoses Diagnosis Pre-transplant evaluation for chronic liver disease Other specified pre-operative examination Acute upper GI bleed Hemorrhage of gastrointestinal tract, unspecified documented in this encounter Insurance Payer Benefit Plan / Subscriber ID Effective Dates Phone Address Type Group [facility] xxxxxxxxx 2019-[facility] Medicaid COMM PLAN - PLUS t MANAGED MEDICAID documented as of this encounter
--- OUTSIDE RECORDS SUMMARY | 2019-07-28 07:13 | XMS REPORT | Summary of Care ---
:1975 Author Organization [facility] - [facility] Address [address] [place] [address] Care Team Providers Name Role Phone Asim Сергей Sauceda Primary Care Provider Reason for Visit Reason Comments Transplant Status Update Evaluation Orders Encounter Details Date Type Department Care Team Description 06/20/2019 Case Management [facility] [place], Transplant Status [place] MD Gladis Update (Evaluation [facility] [address] [facility]) [address] [facility], [place] [address] [phone] Allergies No Known Allergiesdocumented as of this encounter (statuses as of 06/20/2019) Medications Medication Sig Dispensed Refills Start Date [...] daily as needed for Pain (scale 4-6). ehpiwksk-mbxb-KA-calcium-mins 9 Take 1 tablet by 0 Active [...] as of this encounter (statuses as of 06/20/2019) Active Problems Problem Noted Date Spontaneous bacterial [...] as of this encounter (statuses as of 06/20/2019) Immunizations Name Administration Dates Next Due Influenza [...] Date Type Specialty Care Team Description 06/21/2019 Nurse Visit Surgery Nurse, Transplant 06/21/2019 Case Management Surgery Worker, Transplant Social 06/21/2019 Scheduling Representative Visit Surgery Scheduling Representative, Transplant 06/21/2019 Office Visit Gastroenterology Gladis Couch MD [address] [place] [address] [phone] 06/21/2019 Chalker Soles Visit Phlebotomy [facility] Name Type Priority Associated Diagnoses Order Schedule G6PD SCREENING TEST LAB Routine Pre-transplant Expected: evaluation for chronic 06/20/2019, Expires: liver disease 10/19/2019 SODIUM, URINE RANDOM LAB Routine Pre-transplant Expected: evaluation for chronic 06/20/2019, Expires: liver disease 10/19/2019 TOTAL PROTEIN, URINE RANDOM LAB Routine Pre-transplant Expected: evaluation for chronic 06/20/2019, Expires: liver disease 10/19/2019 CREATININE, URINE RANDOM LAB Routine Pre-transplant Expected: evaluation for chronic 06/20/2019, Expires: liver disease 10/19/2019 VITAMIN K1, LEVEL LAB Routine Pre-transplant Expected: evaluation for chronic 06/20/2019, Expires: liver disease 10/19/2019 VITAMIN E, SERUM OR PLASMA LAB Routine Pre-transplant Expected: evaluation for chronic 06/20/2019, Expires: liver disease 10/19/2019 VITAMIN D, 25-OH LAB Routine Pre-transplant Expected: evaluation for chronic 06/20/2019, Expires: liver disease 10/19/2019 VITAMIN A, SERUM OR PLASMA LAB Routine Pre-transplant Expected: evaluation for chronic 06/20/2019, Expires: liver disease 10/19/2019 CRYPTOCOCCAL ANTIGEN LAB Routine Pre-transplant Expected: CSF/SERUM evaluation for chronic 06/20/2019, Expires: liver disease 10/19/2019 ZINC, SERUM LAB Routine Pre-transplant Expected: evaluation for chronic 06/20/2019, Expires: liver disease 10/19/2019 TOXOPLASMA IGG ANTIBODY LAB Routine Pre-transplant Expected: evaluation for chronic 06/20/2019, Expires: liver disease 10/19/2019 HLA-ABC-DR TYPING X-RENAL LAB Routine Pre-transplant Expected: evaluation for chronic 06/20/2019, Expires: liver disease 10/19/2019 ANTIBODY SCREEN X-RENAL LAB Routine Pre-transplant Expected: evaluation for chronic 06/20/2019, Expires: liver disease 10/19/2019 LYMPHOCYTE CROSSMATCH LAB Routine Pre-transplant Expected: X-RENAL evaluation for chronic 06/20/2019, Expires: liver disease 10/19/2019 QUANTIFERON-TB GOLD LAB Routine Pre-transplant Expected: evaluation for chronic 06/20/2019, Expires: liver disease 10/19/2019 IMMUNOGLOBULIN G A M PANEL LAB Routine Pre-transplant Expected: evaluation for chronic 06/20/2019, Expires: liver disease 10/19/2019 HSV 1 AND 2 GLYCOPROTEIN G LAB Routine Pre-transplant Expected: IGG evaluation for chronic 06/20/2019, Expires: liver disease 10/19/2019 MAGNESIUM URINE LAB Routine Pre-transplant Expected: evaluation for chronic 06/20/2019, Expires: liver disease 10/19/2019 MAGNESIUM, URINE RANDOM LAB Routine Pre-transplant Expected: evaluation for chronic 06/20/2019, Expires: liver disease 10/19/2019 Type and Screen LAB Routine Pre-transplant Expected: evaluation for chronic 06/20/2019, Expires: liver disease 10/19/2019 ABO RH LAB Routine Pre-transplant Expected: evaluation for chronic 06/20/2019, Expires: liver disease 10/19/2019 BASIC METABOLIC PANEL (NA, LAB Routine Pre-transplant Expected: K, CL, CO2, GLUCOSE, BUN, evaluation for chronic 06/20/2019, Expires: CREATININE, CA)(aka BMP) liver disease 10/19/2019 URINE DRUG (LCMSMS) - LAB Routine Pre-transplant Expected: ETHANOL METABOLITE PANEL evaluation for chronic 06/20/2019, Expires: liver disease 10/19/2019 HEPATIC FUNCTION PANEL LAB Routine Pre-transplant Expected: (80857) (ALB,T.PRO,BILI evaluation for chronic 06/20/2019, Expires: T,BU/BC,ALT,AST,ALK PHOS) liver disease 10/19/2019 GAMMA LAB Routine Pre-transplant Expected: GLUTAMYLTRANSFERASE(aka GGT) evaluation for chronic 06/20/2019, Expires: liver disease 10/19/2019 GLYCOSYLATED HEMOGLOBIN LAB Routine Pre-transplant Expected: (A1C) evaluation for chronic 06/20/2019, Expires: liver disease 10/19/2019 PROTHROMBIN TIME / INR LAB Routine Pre-transplant Expected: evaluation for chronic 06/20/2019, Expires: liver disease 10/19/2019 ACTIVATED PARTIAL THRMPLAS LAB Routine Pre-transplant Expected: FRANCISCA(aka PTT) evaluation for chronic 06/20/2019, Expires: liver disease 10/19/2019 FERRITIN SERUM LAB Routine Pre-transplant Expected: evaluation for chronic 06/20/2019, Expires: liver disease 10/19/2019 ANTI-NUCLEAR ANTIBODY LAB Routine Pre-transplant Expected: SCREEN(aka ORLANDO (EIA)) evaluation for chronic 06/20/2019, Expires: liver disease 10/19/2019 CHOLESTEROL LAB Routine Pre-transplant Expected: evaluation for chronic 06/20/2019, Expires: liver disease 10/19/2019 CBC WITH DIFF LAB Routine Pre-transplant Expected: evaluation for chronic 06/20/2019, Expires: liver disease 10/19/2019 ALPHA FETOPROTEIN(aka AFP) LAB Routine Pre-transplant Expected: evaluation for chronic 06/20/2019, Expires: liver disease 10/19/2019 IRON SERUM LAB Routine Pre-transplant Expected: evaluation for chronic 06/20/2019, Expires: liver disease 10/19/2019 TOTAL IRON BINDING CAPACITY LAB Routine Pre-transplant Expected: evaluation for chronic 06/20/2019, Expires: liver disease 10/19/2019 THYROID STIMULATING LAB Routine Pre-transplant Expected: HORMONE(aka TSH) evaluation for chronic 06/20/2019, Expires: liver disease 10/19/2019 TRIIODOTHYRONINE, LEVEL LAB Routine Pre-transplant Expected: evaluation for chronic 06/20/2019, Expires: liver disease 10/19/2019 THYROXINE, TOTAL(aka T4) (if LAB Routine Pre-transplant Expected: TSH abnormal) evaluation for chronic 06/20/2019, Expires: liver disease 10/19/2019 TEST, SERUM LAB Routine Pre-transplant Expected: evaluation for chronic 06/20/2019, Expires: liver disease 10/19/2019 URINE DRUG (LCMSMS) - LAB Routine Pre-transplant Expected: COMPREHENSIVE DRUG PANEL evaluation for chronic 06/20/2019, Expires: liver disease 10/19/2019 CREATININE CLEARANCE LAB Routine Pre-transplant Expected: evaluation for chronic 06/20/2019, Expires: liver disease 10/19/2019 PROTEIN QUANT U/24H LAB Routine Pre-transplant Expected: evaluation for chronic 06/20/2019, Expires: liver disease 10/19/2019 URINALYSIS(aka UA) LAB Routine Pre-transplant Expected: evaluation for chronic 06/20/2019, Expires: liver disease 10/19/2019 HEPATITIS B SURFACE ANTIGEN LAB Routine Pre-transplant Expected: evaluation for chronic 06/20/2019, Expires: liver disease 10/19/2019 HEPATITIS B SURFACE ANTIBODY LAB Routine Pre-transplant Expected: evaluation for chronic 06/20/2019, Expires: liver disease 10/19/2019 HBC ANTIBODY (IGM & IGG) LAB Routine Pre-transplant Expected: evaluation for chronic 06/20/2019, Expires: liver disease 10/19/2019 HCV ANTIBODY LAB Routine Pre-transplant Expected: evaluation for chronic 06/20/2019, Expires: liver disease 10/19/2019 HAV ANTIBODY (IGG AND IGM) LAB Routine Pre-transplant Expected: evaluation for chronic 06/20/2019, Expires: liver disease 10/19/2019 EBV AB TO NUCLEAR AG,IGG LAB Routine Pre-transplant Expected: evaluation for chronic 06/20/2019, Expires: liver disease 10/19/2019 CYTOMEGALOVIRUS ANTIBODY LAB Routine Pre-transplant Expected: IGG(aka CMV ANTIBODY, IGG) evaluation for chronic 06/20/2019, Expires: liver disease 10/19/2019 MEASLES IGG LAB Routine Pre-transplant Expected: evaluation for chronic 06/20/2019, Expires: liver disease 10/19/2019 RUBELLA SCREEN (LANCE) IGG LAB Routine Pre-transplant Expected: evaluation for chronic 06/20/2019, Expires: liver disease 10/19/2019 VZV ANTIBODY SCREEN(aka LAB Routine Pre-transplant Expected: VARICELLA ANTIBODY) evaluation for chronic 06/20/2019, Expires: liver disease 10/19/2019 HIV 1/2 AG-AB WITH REFLEX LAB Routine Pre-transplant Expected: evaluation for chronic 06/20/2019, Expires: liver disease 10/19/2019 GALV ONLY - SYPHILIS IGG/IGM LAB Routine Pre-transplant Expected: evaluation for chronic 06/20/2019, Expires: liver disease 10/19/2019 Health Maintenance Due Date Last Done Comments DTaP,Tdap,and Td Vaccines (1 - Tdap) 1986 INFLUENZA VACCINE (#1) 2018 01/22/2018 PNEUMOCOCCAL 0-64 YEARS COMBINED SERIES (2 of 3 - 01/16/2019 11/21/2018 PPSV23) documented as of this encounter Results Not on filedocumented in this encounter Visit Diagnoses Diagnosis Pre-transplant evaluation for chronic liver disease - Primary Other specified pre-operative examination documented in this encounter Insurance Payer Benefit Plan / Subscriber ID Effective Phone Address Type Group Dates [facility] BCBS BLUE [id number] 2019-Pres [phone] [address] HMO ADVANTAGE HMO ent [phone] [place] [address] [facility] xxxxxxxxx 2019-Pre Medicaid HEALTHCARE COMM PLUS sent PLAN - MANAGED MEDICAID documented as of this encounter
--- OUTSIDE RECORDS SUMMARY | 2019-07-28 07:14 | XMS REPORT | Summary of Care ---
:1975 Author Organization [facility] Address [address] [place] [address] Care Team Providers Name Role Phone Сергей Dailey Primary Care Provider Reason for Referral MRI/CAT Scan (Routine) Status Reason Specialty Diagnoses / Referred By Referred To Procedures Contact Contact New Request Diagnostic Diagnoses HCC (hepatocellular carcinoma) Avel Bowers, Radiology Procedures MR ABDOMEN W WO CONTRAST [address] [address] Reason for Visit MRI/CAT Scan (Routine) Status Reason Specialty Diagnoses / Referred By Referred To Procedures Contact Contact New Request Diagnostic Diagnoses HCC (hepatocellular carcinoma) Avel Bowers, Radiology Procedures MR ABDOMEN W WO CONTRAST [address] [address] Encounter Details Date Type Department Care Team Description 06/25/2019 Hospital Encounter [facility]ly [facility] Avel Bowers MD [facility] [address] [place] [address] [address] [place] [id number] [place] [address] [place], [place] [phone] Allergies No Known Allergiesdocumented as of this encounter (statuses as of 06/26/2019) Medications Medication Sig Dispensed Refills Start Date [...] daily as needed for Pain (scale 4-6). lwtyfhpy-zgjz-ZN-calcium-mins 9 Take 1 tablet by 0 Active [...] as needed for Nausea and Vomiting (N/V). magnesium oxide (MAG-OXIDE Take by mouth 2 0 Active ORAL) (two) times daily. 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
--- OUTSIDE RECORDS SUMMARY | 2019-07-28 07:14 | XMS REPORT | Summary of Care ---
:1975 Author Organization [facility] - [facility] Address [address] [place] [address] Care Team Providers Name Role Phone Сергей Dailey Primary Care Provider Reason for Referral MRI/CAT Scan (STAT) Status Reason Specialty Diagnoses / Referred By Referred To Procedures Contact Contact Authorized Diagnostic Diagnoses Pre-transplant evaluation for chronic liver disease Iza, Radiology Procedures CT ABDOMEN PELVIS W WO CONTRAST MD Gladis [address] [place] [address] Reason for Visit MRI/CAT Scan (STAT) Status Reason Specialty Diagnoses / Referred By Referred To Procedures Contact Contact Authorized Diagnostic Diagnoses Pre-transplant evaluation for chronic liver disease Iza, Radiology Procedures CT ABDOMEN PELVIS W WO CONTRAST MD Gladis [address] [place] [address] Encounter Details Date Type Department Care Team Description 06/21/2019 Hospital Encounter [facility] Diagnostic Gladis Couch Arrived Imaging, [facility] [address] [address] [place], [place] [phone] Allergies No Known Allergiesdocumented as of this encounter (statuses as of 06/22/2019) Medications Medication Sig Dispensed Refills Start Date [...] daily as needed for Pain (scale 4-6). gsmjeyta-thax-PX-calcium-mins 9 Take 1 tablet by 0 Active [...] as of this encounter (statuses as of 06/22/2019) Active Problems Problem Noted Date Spontaneous bacterial [...] as of this encounter (statuses as of 06/22/2019) Immunizations Name Administration Dates Next Due Influenza [...] Associated Diagnoses Date/Time CT ABDOMEN PELVIS W WO IMAGING STAT Pre-transplant 06/21/2019 2:57 PM CONTRAST evaluation for chronic OFFICE RENTAL CLERK liver disease Name Type Priority Associated Diagnoses Order Schedule CT ABDOMEN PELVIS W IMAGING STAT Pre-transplant 1 Occurrences starting WO CONTRAST evaluation for chronic 06/21/2019 until liver disease 06/21/2019 Health Maintenance Due Date Last Done Comments DTaP,Tdap,and Td Vaccines (1 - Tdap) 1986 INFLUENZA VACCINE (#1) 2018 01/22/2018 PNEUMOCOCCAL 0-64 YEARS COMBINED SERIES (2 of 3 - 01/16/2019 11/21/2018 PPSV23) documented as of this encounter Results Not on filedocumented in this encounter Visit Diagnoses Diagnosis Pre-transplant evaluation for chronic liver disease Other specified pre-operative examination documented in this encounter Administered Medications Medication Order MAR Action Action Date Dose Rate Site iohexol (OMNIPAQUE 350 BULK-150 Given 06/21/2019 2:29 PM OFFICE RENTAL CLERK 150 mL mL) injection 150 mL 150 mL, Intravenous, ONCE, 1 dose, Mon06/21/19 at 1500, Routine documented in this encounter Insurance Payer Benefit Plan / Subscriber ID Effective Dates Phone Address Type Group BCBS OF HIM BCBS BLUE [id number] 2019-Thelma [phone] [address] [facility] t [phone] [id number] [place] [address] documented as of this encounter
--- OUTSIDE RECORDS SUMMARY | 2019-07-28 07:14 | XMS REPORT | Summary of Care ---
:1975 Author Organization [facility] Address [address] [place] [address] Care Team Providers Name Role Phone Сергей Dailey Primary Care Provider Reason for Referral MRI/CAT Scan (STAT) Status Reason Specialty Diagnoses / Referred By Referred To Procedures Contact Contact New Request Diagnostic Diagnoses Pre-transplant evaluation for chronic liver disease Iza, Radiology Procedures CT ABDOMEN PELVIS W WO CONTRAST MD Gladis [address] [place] [address] Reason for Visit Reason Comments Orders Encounter Details Date Type Department Care Team Description 06/21/2019 Case Management [facility] Gladis Couch Orders Transplant-[facility] [address] [place] [phone] Allergies No Known Allergiesdocumented as of this [...] daily as needed for Pain (scale 4-6). qjlmqlfo-nill-VZ-calcium-mins 9 Take 1 tablet by 0 Active [...] 06/21/2019 Office Visit Gastroenterology Gladis Couch MD [address] [place] [address] [phone] 06/21/2019 Hvac Lead Visit Phlebotomy Gladis Couch MD [address] [place] [address] [phone] Pre-transplant evaluation for chronic liver disease; Vtc-Lab Acute upper GI bleed Name Type Priority Associated Diagnoses Order Schedule CT ABDOMEN PELVIS W WO IMAGING STAT Pre-transplant Expected: 06/21/2019, CONTRAST evaluation for chronic Expires: 06/21/2020 liver disease Health Maintenance Due Date Last [...] ID Effective Phone Address Type Group Dates [facility] ALVARO FITZGERALD [id number] 2019-Pres [phone] [address] HMO ADVANTAGE HMO ent [phone] [place] [address] [facility] STAR xxxxxxxxx 2019-Pre Medicaid HEALTHCARE COMM PLUS sent PLAN - MANAGED MEDICAID documented as of this encounter
--- OUTSIDE RECORDS SUMMARY | 2019-07-28 07:14 | XMS REPORT | Summary of Care ---
:1975 Author Organization [facility] - [facility] Address [address] [place] [address] Care Team Providers Name Role Phone Asim Сергей Sauceda Primary Care Provider Reason for Visit Reason Comments Evaluation Encounter Details Date Type Department Care Team Description 06/21/2019 Machine Stonecutter Visit [facility] Transplant- Gladis Couch MD [facility] [place] [address] [phone] [place] [facility]cut[facility], [facility] [address] [place] [phone] Allergies No Known Allergiesdocumented as of this [...] daily as needed for Pain (scale 4-6). fexelbem-mwcc-UR-calcium-mins 9 Take 1 tablet by 0 Active [...] Signs Not on filedocumented in this encounter Progress Notes Hayden Elliott, RAMIRO LD CDE - 06/21/2019 10:00 AM CST LIVER TRANSPLANT NUTRITION EVALUATION NOTE INITIAL June 21, 2019 Stuart Lynch, [id number] Stuart Lynch is a 44 year old male being evaluated for possible liver transplant. 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 I have reviewed pertinent medical, surgical and social history to gain a better understanding of this patient's condition. Informant: patient and spouse Anthropometrics Measured Clinic Height: Ht Readings from Last 1 Encounters: 06/21/19 5' 8.7" (1.745 m) Weight history: Wt Readings from Last 5 Encounters: 06/21/19 184 lb 8 oz (83.7 kg) 06/12/19 200 lb (90.7 kg) 06/07/19 200 lb (90.7 kg) 06/02/19 185 lb (83.9 kg) 05/29/19 184 lb 11.9 oz (83.8 kg) Usual weight: 185-200 lbs stated by patient BMI: 27.48 kg/m2 calculated using today's clinic weight: Overweight (BMI: 25 - 29.9) Weight Changes: Patient reports he had weighed up to 220 lbs and had lost weight down to 164 lbs. His nutrient intake has increased within the last 4 months and he has regained about 20 lbs. Edema/Fluid status: no edema Amputation: none Clinical data Labs: I have reviewed the patient's labs. Significant abnormals are noted below. Results for STUART LYNCH ( ) as of 06/21/2019 13:31 06/12/2019 01:24 06/21/2019 09:54 NA 133 (L) 135 K 4.2 4.4 CL 102 102 CO2 TOTAL 24 27 AGAP 7 6 BUN 11 12 GLUCOSE 133 (H) 122 (H) CREATININE 1.03 0.79 eGFR CALCULATION (non ) 78.5 106.6 eGFR CALCULATION () 95.1 129.1 TOTAL BILI 3.4 (H) 3.9 (H) BILI UNCON 2.1 (H) BILI CONJ 0.2 CHOL 116 (L) IRON 103 TIBC 207 (L) % FE SAT 50 CALCIUM 8.8 8.9 T PROTEIN 7.3 7.7 ALBUMIN 3.0 (L) 2.7 (L) AMMONIA 29 LIPASE 127 HYAL CAST 28 (H) GGT 82 (H) HGB A1C 5.5 Medical History Past Medical History: Diagnosis Date Ascites Chronic back pain Cirrhosis Hyponatremia Liver mass 2019 Past Surgical History: Procedure Laterality Date ESOPHAGOGASTRODUODENOSCOPY N/A 05/01/2019 Surgeon: January Mahmood MD; Location: [facility] OR [facility] ESOPHAGOGASTRODUODENOSCOPY N/A 05/29/2019 Surgeon: January Mahmood MD; Location: [facility] OR Location CT ANESTH,KNEE AREA SURGERY 2016 Current/Previous Therapies Lactulose daily Medications MNT therapies/supplements: lasix Vitamins/Herbal supplements/OTC Dietary supplements: daily MVI, vitamin D, magnesium and Folic Acid,Vitamin B complex, and Zinc Diet History Route of nutrition: Oral Current Diet: Regular, no restrictions Fluid restriction: none Appetite: good Food allergies/intolerances: NKFA Pica: no GI complaints: denies Daily Meal Routine at Home: -Breakfast: Smoothie -Lunch: sushi and miso soup -Dinner: chicken with mushroom and cheese -Beverages: water and an electrolyte drink Other Factors Affecting Nutrition Status Chewing/Swallowing Limitations: none at this time Dentition: good Dental Hygiene: brushes 2 times daily and the last time he saw a dentist visit was during his childhood Weight Loss Program: no Obesity Surgery History: no Diabetes Self Management patient not known to be diabetic Functional Ability/Psycho-Social/Economic Factors Affecting Nutrition Vision: contacts and glasses Hearing: good; no issues reported ADLs: Independent Activity Level/Mobility: no difficulty Exercise: he walks daily and lifts weights 2-3 times weekly Social Support System: Living Situation: with spouse Adequate Cooking Facilities: yes Primary cooking and shopping performed by: Food Assistance Program: yes, source: Food Dyer his recieves Cultural/Christianity Preferences: yes - no meat on Fridays during Lent Employed: medically disabled Highest Level of Education Completed: Some College Nutrition Diagnosis Deferred pending further evaluation Nutrition Intervention and Recommendations Suggest high protein and low sodium diet Educated the patient on protein content of foods and encouraged compliance with low salt, high protein diet Target Weight Meets Nutrition Monitoring and Evaluation Transplant candidate based on current nutritional status and anthropometrics: Acceptable Total time spent with patient: [address], LINDA, CDE Registered Dietitian Draper[facility] Ext: [phone] documented in this encounter Plan of Treatment Date Type Specialty Care Team Description 06/21/2019 Hospital Encounter Radiology Gladis Couch MD Arrived [address] [place] [address] [phone] Health Maintenance Due Date Last Done Comments DTaP,Tdap,and Td Vaccines (1 - Tdap) 1986 INFLUENZA VACCINE (#1) 2018 01/22/2018 PNEUMOCOCCAL 0-64 YEARS COMBINED SERIES (2 of 3 - 01/16/2019 11/21/2018 PPSV23) documented as of this encounter Results Not on filedocumented in this encounter Insurance Payer Benefit Plan / Subscriber ID Effective Dates Phone Address Type Group BCBS OF HIM BCBS BLUE [id number] 2019-[email or web address]]mook [phone] [address] [facility] [id number] [place] [address] documented as of this encounter
--- OUTSIDE RECORDS SUMMARY | 2019-07-28 07:16 | XMS REPORT | Summary of Care ---
:1975 Author Organization [facility] Address [address] [place] [address] Care Team Providers Name Role Phone Сергей Dailey Primary Care Provider Reason for Referral MRI/CAT Scan (Routine) Status Reason Specialty Diagnoses / Referred By Referred To Procedures Contact Contact New Request Diagnostic Diagnoses HCC (hepatocellular carcinoma) Avel Bowers, Radiology Procedures MR ABDOMEN W WO CONTRAST [address] [address] MRI/CAT Scan (Routine) Status Reason Specialty Diagnoses / Referred By Referred To Procedures Contact Contact Closed Diagnostic Diagnoses HCC (hepatocellular carcinoma) Avel Bowers, Radiology Procedures MR ABDOMEN W WO CONTRAST [address] [address] Reason for Visit Reason Comments New Patient (Routine) Status Reason Specialty Diagnoses / Referred By Referred To Procedures Contact Contact Authorized TRS-TRANSPLANT Diagnoses Alcoholic cirrhosis of liver without ascites Hematemesis Hepatomegaly, not elsewhere classified Esophageal varices without bleeding Per email elias-06/21/19 Avel Bowers, Avel Bowers, SURGERY / Surgery Procedures CONSULT/REFERRAL GENERAL SURGERY FOLLOW-UP VISIT MD OWENS 301 [facility] [address] [phone] Phone: Fax: Encounter Details Date Type Department Care Team Description 06/25/2019 Office Visit [facility] Avel Bowers, HCC ( hepatocellular Surgery-Konstantin OWENS carcinoma) (Primary Dx) [facility] 301 [facility] [address], [id number] [address] [place] [phone] Allergies No Known Allergiesdocumented as of this [...] daily as needed for Pain (scale 4-6). gpbvrlby-tjrf-JG-calcium-mins 9 Take 1 tablet by 0 Active [...] Sign Reading Time Taken Comments Blood Pressure 141/70 06/25/2019 2:24 PM IT INTEGRATION ARCHITECT Pulse 72 06/25/2019 2:24 PM IT INTEGRATION ARCHITECT Temperature 36.6 C (97.9 F) 06/25/2019 2:24 PM IT INTEGRATION ARCHITECT Respiratory Rate 18 06/25/2019 2:24 PM IT INTEGRATION ARCHITECT Oxygen Saturation - - Inhaled Oxygen Concentration - - Weight 88.5 kg (195 lb 3.2 oz) 06/25/2019 2:24 PM IT INTEGRATION ARCHITECT Height 175.3 cm (5' 9") 06/25/2019 2:24 PM IT INTEGRATION ARCHITECT Body Mass Index 28.83 06/25/2019 2:24 PM IT INTEGRATION ARCHITECT documented in this encounter Progress Notes Avel Bowers MD - 06/25/2019 1:00 PM CSTI personally examined the patient on 06/25/[address] Kennedy's resident note as written. I actively participated in the decision-making process. Please see the resident note for additional details. Daisy Lomeli MA - 06/25/2019 1:00 PM CSTStuart Patricia Glass is a 44 year old male comes to clinic independent in ambulation for evaluation. Pt comes accompanied by . Pt in NAD w/ pain reported 10/10 Bilateral Foot. Pt preferred language is Croatian. Pt. denies fall in last 12 months. Allergies and medications reviewed and updated. documented in this encounter Plan of Treatment Date Type Specialty Care Team Description 06/28/2019 Appointment Radiology Gladis Couch MD [address] [place], [place] [phone] Name Type Priority Associated Diagnoses Date/Time MR ABDOMEN W WO IMAGING Routine HCC (hepatocellular 06/25/2019 6:53 PM CONTRAST carcinoma) IT INTEGRATION ARCHITECT MR ABDOMEN W WO IMAGING Routine HCC (hepatocellular 06/25/2019 5:11 PM CONTRAST carcinoma) IT INTEGRATION ARCHITECT Name Type Priority Associated Diagnoses Order Schedule MR ABDOMEN W WO IMAGING Routine HCC (hepatocellular Expected: 06/25/2019, CONTRAST carcinoma) Expires: 06/24/2020 Health Maintenance Due Date Last Done Comments DTaP,Tdap,and Td Vaccines (1 - Tdap) 1986 INFLUENZA VACCINE (#1) 2018 01/22/2018 PNEUMOCOCCAL 0-64 YEARS COMBINED SERIES (2 of 3 - 01/16/2019 11/21/2018 PPSV23) documented as of this encounter Results Not on filedocumented in this encounter Visit Diagnoses Diagnosis HCC (hepatocellular carcinoma) - Primary Malignant neoplasm of liver, primary documented in this encounter
--- OUTSIDE RECORDS SUMMARY | 2019-07-28 07:16 | XMS REPORT | Summary of Care ---
:1975 Author Organization [facility] - [facility] Address [address] [place] [address] Care Team Providers Name Role Phone Сергей Dailey Primary Care Provider Reason for Referral MRI/CAT Scan (Routine) Status Reason Specialty Diagnoses / Referred By Referred To Procedures Contact Contact New Request Diagnostic Diagnoses HCC (hepatocellular carcinoma) Avel Bowers, Radiology Procedures MR ABDOMEN W WO CONTRAST [address] [address] MRI/CAT Scan (Routine) Status Reason Specialty Diagnoses / Referred By Referred To Procedures Contact Contact Closed Diagnostic Diagnoses HCC (hepatocellular carcinoma) Avel Bowers, Radiology Procedures MR ABDOMEN W WO CONTRAST [address] [address] Reason for Visit Reason Comments New Patient (Routine) Status Reason Specialty Diagnoses / Referred By Referred To Procedures Contact Contact Authorized TRS-TRANSPLANT Diagnoses Alcoholic cirrhosis of liver without ascites Hematemesis Hepatomegaly, not elsewhere classified Esophageal varices without bleeding Per email elias-06/21/19 Avel Bowers, Avel Bowers, SURGERY / Surgery Procedures CONSULT/REFERRAL GENERAL SURGERY FOLLOW-UP VISIT MD OWENS 301 [facility] [address] [phone] Phone: Fax: Encounter Details Date Type Department Care Team Description 06/25/2019 Office Visit [facility] Avel Bowers, HCC ( hepatocellular Surgery-Konstantin OWENS carcinoma) (Primary Dx) [facility] 301 [facility] [address], [id number] [address] [place] [phone] Allergies No Known Allergiesdocumented as of this [...] daily as needed for Pain (scale 4-6). ltqdaajp-ibbq-VL-calcium-mins 9 Take 1 tablet by 0 Active [...] Comments Blood Pressure 141/70 06/25/2019 2:24 PM ASSEMBLER Pulse 72 06/25/2019 2:24 PM ASSEMBLER Temperature 36.6 C (97.9 F) 06/25/2019 2:24 PM ASSEMBLER Respiratory Rate 18 06/25/2019 2:24 PM ASSEMBLER Oxygen Saturation - - Inhaled Oxygen Concentration - - Weight 88.5 kg (195 lb 3.2 oz) 06/25/2019 2:24 PM ASSEMBLER Height 175.3 cm (5' 9") 06/25/2019 2:24 PM ASSEMBLER Body Mass Index 28.83 06/25/2019 2:24 PM ASSEMBLER documented in this encounter Progress Notes Avel [...] 10/10 Bilateral Foot. Pt preferred language is Serbian. Pt. denies fall in last 12 months. Allergies and medications reviewed and updated. documented in this encounter Plan of Treatment Date Type Specialty Care Team Description 06/28/2019 Appointment Radiology Gladis Couch MD [address] [place], [place] 259473 Name Type Priority Associated Diagnoses Date/Time MR ABDOMEN W WO IMAGING Routine HCC (hepatocellular 06/25/2019 6:53 PM CONTRAST carcinoma) ASSEMBLER MR ABDOMEN W WO IMAGING Routine HCC (hepatocellular 06/25/2019 5:11 PM CONTRAST carcinoma) ASSEMBLER Name Type Priority Associated Diagnoses Order Schedule [...]
--- OUTSIDE RECORDS SUMMARY | 2019-07-28 07:16 | XMS REPORT | Summary of Care ---
:1975 Author Organization [facility] - [facility] Address [address] [place] [address] Care Team Providers Name Role Phone Сергей Dailey Primary Care Provider Reason for Referral MRI/CAT Scan (Routine) Status Reason Specialty Diagnoses / Referred By Referred To Procedures Contact Contact Closed Diagnostic Diagnoses HCC (hepatocellular carcinoma) Avel Bowers, Radiology Procedures MR ABDOMEN W WO CONTRAST [address] [address] Reason for Visit MRI/CAT Scan (Routine) Status Reason Specialty Diagnoses / Referred By Referred To Procedures Contact Contact Closed Diagnostic Diagnoses HCC (hepatocellular carcinoma) Avel Bowers, Radiology Procedures MR ABDOMEN W WO CONTRAST [address] [address] Encounter Details Date Type Department Care Team Description 06/25/2019 Hospital Encounter [facility] Magnetic Avel Bowers MD Arrived Resonance Imaging 301 [facility] [address] [place] [id number] [place] [address] [place], [place] [phone] Allergies No Known Allergiesdocumented as of [...] daily as needed for Pain (scale 4-6). teneaemv-rtye-VA-calcium-mins 9 Take 1 tablet by 0 Active [...] HCC (hepatocellular 06/25/2019 6:53 PM CONTRAST carcinoma) PAD TUFTER Name Type Priority Associated Diagnoses Order Schedule [...] of liver, primary documented in this encounter Administered Medications Medication Order MAR Action Action Date Dose Rate Site gadoterate meglumine (DOTAREM-20 Given 06/25/2019 6:00 PM PAD TUFTER 17.7 mL mL) injection 17.7 mL 17.7 mL (0.2 mL/kg 88.5 kg), Intravenous, ONCE, 1 dose, Mon06/25/19 at 1800, Routine documented in this encounter
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
--- OUTSIDE RECORDS SUMMARY | 2019-07-28 07:18 | XMS REPORT | Summary of Care ---
:[address] [facility] - [facility] Address [address] [place] [address] Care Team Providers Name Role Phone Asim Сергей Sauceda Primary Care Provider Reason for Visit Reason Comments Social Work initial psychosocial assessment Encounter Details Date Type Department Care Team Description 06/21/2019 Case Management [facility] Gladis Couch MD [address] [place] [address] [phone] Social Work Transplant- League Worker, Transplant Social (initial [facility] psychosocial [facility] assessment ) [address] [place] [phone] Allergies No Known Allergiesdocumented as of [...] daily as needed for Pain (scale 4-6). redhezyg-ithp-CE-calcium-mins 9 Take 1 tablet by 0 Active [...] INFORMATION Date: 06/21/2019 Name: Stuart Glass Address: [address] [place] [address] [place] [address] Phone/ (home) Gender: Male Race: Primary Language: Guamanian Language Assistance: No Taoist/Cultural Preferences: Latter Day Assessment Status: Recipient, Initial Evaluation Service: liver Informant: patient and spouse Do you have any mormon, ethnic or personal objections to accepting blood [...] Can the patient read, write, and understand Guamanian? 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 N/A [facility] ID: N/A Medication Resources: Medicare [...] hearings? 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 Yes Impression regarding patient's openness [...] for last 3-4 years. Patient lives in [facility]. 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 Patient has extensive alcohol history with [...] This recommendation should not stop patient from listing if medically necessary. Patient willing and agreed to attend. Provided info from patient's insurance plan, requested patient make appointment and follow up with SW once started. He and caregiver agreed. Kirsten Bucio [address], [place] [address] Chantelle Vines, SUEDE BRUSHER, COLORING ROOM MAN, [facility] Certified Clinical Transplant Non Profit Job Titles Mechanical Circulatory Support Non Profit Job Titles Living Donor Non Profit Job Titles P [phone] F [phone] documented in this encounter Plan of Treatment Date Type Specialty Care Team Description 06/28/2019 Appointment Radiology Gladis Couch MD [address] [place], [place] [id number] Health Maintenance Due Date Last Done Comments DTaP,Tdap,and Td Vaccines (1 - Tdap) 1986 INFLUENZA VACCINE (#1) 2018 01/22/2018 PNEUMOCOCCAL 0-64 YEARS COMBINED SERIES (2 of 3 - 01/16/2019 11/21/2018 PPSV23) documented as of this encounter Results Not on filedocumented in this encounter Insurance Payer Benefit Plan / Subscriber ID Effective Phone Address Type Group Dates [facility] BCBS BLUE [id number] 2019-Pres [phone] [address] HMO ADVANTAGE HMO ent [id number] [place] [address] [facility] STAR xxxxxxxxx 2019-3/2 Medicaid HEALTHCARE [facility] PLAN - MANAGED MEDICAID documented as of this encounter
--- OUTSIDE RECORDS SUMMARY | 2019-07-28 07:19 | XMS REPORT | Summary of Care ---
:1975 Author Organization [facility] - [facility] Address [address] [place] [address] Care Team Providers Name Role Phone Сергей Dailey Primary Care Provider Reason for Visit Reason Comments Pre-Visit Planning Encounter Details Date Type Department Care Team Description 06/28/2019 Hospital Encounter [facility] Diagnostic Gladis Couch, Arrived Imaging, [facility] [address] [address] [place], [place] [phone] Allergies No Known Allergiesdocumented as of this encounter (statuses as of 06/29/2019) Medications Medication Sig Dispensed Refills Start Date [...] daily as needed for Pain (scale 4-6). agelcxvt-mjmv-JX-calcium-mins 9 Take 1 tablet by 0 Active [...] as of this encounter (statuses as of 06/29/2019) Active Problems Problem Noted Date Spontaneous bacterial [...] as of this encounter (statuses as of 06/29/2019) Immunizations Name Administration Dates Next Due Influenza [...] Sign Reading Time Taken Comments Blood Pressure 149/85 06/28/2019 1:25 PM RETIREMENT PLAN COUNSELOR Pulse 82 06/28/2019 1:25 PM RETIREMENT PLAN COUNSELOR Temperature 36.7 C (98.1 F) 06/28/2019 1:25 PM RETIREMENT PLAN COUNSELOR Respiratory Rate 18 06/28/2019 1:25 PM RETIREMENT PLAN COUNSELOR Oxygen Saturation 100% 06/28/2019 1:25 PM RETIREMENT PLAN COUNSELOR Inhaled Oxygen Concentration - - Weight 88.5 kg (195 lb) 06/28/2019 1:25 PM RETIREMENT PLAN COUNSELOR Height 175.3 cm (5' 9") 06/28/2019 1:25 PM RETIREMENT PLAN COUNSELOR Body Mass Index 28.8 06/28/2019 1:25 PM RETIREMENT PLAN COUNSELOR documented in this encounter Plan of Treatment [...] Type Group BCBS OF HIM BCBS BLUE [id number] 2019-Thelma [phone] [address] [phone] [place] [address] documented as of this encounter
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
--- OUTSIDE RECORDS SUMMARY | 2019-07-28 07:19 | XMS REPORT ---
:1975 Author Organization [employer] Care Team Providers Name Role Phone Asim [facility] Provider Role Unavailable Allergies No Known Allergies [...] Medications Results No Known Results Summary Purpose Spotlight At NightinicalJibo Submission
--- OUTSIDE RECORDS SUMMARY | 2019-07-28 07:20 | XMS REPORT | Summary of Care ---
:1975 Author Organization [facility] Address [address] [place] [address] Care Team Providers Name Role Phone Dailey Сергей Sauceda Primary Care Provider Encounter Details Date Type Department Care Team Description 07/02/2019 Letter (Out) [facility] Gladis Couch MD Transplant-[address] [place] [address] [facility] [phone] [place] [address] [phone] Allergies No Known Allergiesdocumented as of this encounter (statuses as of 07/02/2019) Medications Medication Sig Dispensed Refills Start Date [...] daily as needed for Pain (scale 4-6). hiiywici-ssdl-BZ-calcium-mins 9 Take 1 tablet by 0 Active [...] as of this encounter (statuses as of 07/02/2019) Active Problems Problem Noted Date Spontaneous bacterial [...] as of this encounter (statuses as of 07/02/2019) Immunizations Name Administration Dates Next Due Influenza [...] Type Group BCBS OF HIM BCBS BLUE [id number] 2019-Thelma [phone] [address] HMO [facility] t [phone] [place] [address] documented as of this encounter
--- OUTSIDE RECORDS SUMMARY | 2019-07-28 07:20 | XMS REPORT | Summary of Care ---
:1975 Author Organization [facility] Address [address] [place] [address] Care Team Providers Name Role Phone Сергей Dailey Sohail Primary Care Provider Encounter Details Date Type Department Care Team Description 07/02/2019 Committee Review [facility] Jv Couch Transplant-[facility] [address] [phone] Allergies No Known Allergiesdocumented as of [...] daily as needed for Pain (scale 4-6). vlqqpmei-wniv-XV-calcium-mins 9 Take 1 tablet by 0 Active [...] Address Type Group BCBS OF HIM BCBS LIA [id number] 2019-Thelma [phone] [address] [facility] [phone] [place] [address] documented as of this encounter
--- OUTSIDE RECORDS SUMMARY | 2019-07-28 07:21 | XMS REPORT | Summary of Care ---
:[address] [facility] Address [address] [place] [address] Care Team Providers Name Role Phone Сергей Dailey Primary Care Provider Reason for Referral (Routine) Status Reason Specialty Diagnoses / Referred By Referred To Procedures Contact Contact New Request Cardiology Diagnoses Pulmonary hypertension Iza, Procedures CONSULT/REFERRAL CARDIOLOGY MD Gladis [address] [place] [address] Reason for Visit Reason Comments Orders Encounter Details Date Type Department Care Team Description 07/02/2019 Case Management [facility] [address] [place] [phone] Allergies No Known Allergiesdocumented as of this [...] daily as needed for Pain (scale 4-6). ubchodhu-rvjh-GN-calcium-mins 9 Take 1 tablet by 0 Active [...] filedocumented in this encounter Visit Diagnoses Diagnosis Pulmonary hypertension - Primary Other chronic pulmonary heart diseases documented in this encounter Insurance Payer Benefit Plan / Subscriber ID Effective Dates Phone Address Type Group BCBS OF [facility] BCBS LIA [id number] 2019-Thelma [phone] [address] [facility] [phone] [place] [address] documented as of this encounter
--- OUTSIDE RECORDS SUMMARY | 2019-07-28 07:21 | XMS REPORT | Summary of Care ---
:1975 Author Organization [facility] Address [address] [place] [address] Care Team Providers Name Role Phone Dailey Сергей Sauceda Primary Care Provider Encounter Details Date Type Department Care Team Description 07/02/2019 Letter (Out) [facility] Gladis Couch MD Transplant-[address] [place] [address] [facility] [phone] [place] [address] [phone] Allergies No Known Allergiesdocumented as of this [...] daily as needed for Pain (scale 4-6). hranoryr-egid-MV-calcium-mins 9 Take 1 tablet by 0 Active [...] Type Group BCBS OF HIM BCBS BLUE [id number] 2019-Thelma [phone] [address] [facility] [phone] [place] [address] documented as of this encounter
[2019-07-28 07:22] LABS: Absolute Lymphocytes (CBC) 0.9 K/uL (0.7-4.9); Basophils % 1.1 % (0-1.3); Hematocrit 27.6 % (39.6-49.0); Lymphocytes % 20.9 % (15.3-44.8); MPV 8.2 fL (7.6-11.3); RBC Red Blood Cell Count 2.75 M/uL (4.33-5.43)
--- OUTSIDE RECORDS SUMMARY | 2019-07-28 07:23 | XMS REPORT | Summary of Care ---
:1975 Author Organization [facility] Address [address] [place] [address] Care Team Providers Name Role Phone DaileyMian iniguezeesh Sohail Primary Care Provider Reason for Visit Reason Comments Transition Of Care Encounter Details Date Type Department Care Team Description 07/05/2019 Transition of Care [facility] [place] [facility], [facility]- RN [address] [address] Allergies No Known Allergiesdocumented as of this encounter (statuses as of 07/05/2019) Medications Medication Sig Dispensed Refills Start Date [...] daily as needed for Pain (scale 4-6). btgnqwxl-nefn-UC-calcium-mins 9 Take 1 tablet by 0 Active [...] mouth every 6 (six) hours as needed. dicyclomine 20 mg Take 1 tablet by [...] 2 0 Active ORAL) (two) times daily. traMADol 50 mg Take 1 tablet by 12 tablet 0 07/04/2019 Active tabletIndications: Generalized mouth every 6 (six) abdominal pain, Enteritis, hours as needed for Colitis Pain (scale 7-10). documented as of this encounter (statuses as of 07/05/2019) Active Problems Problem Noted Date Hepatic encephalopathy 07/04/2019 Spontaneous bacterial peritonitis 05/12/2019 Liver cirrhosis, alcoholic [...] as of this encounter (statuses as of 07/05/2019) Immunizations Name Administration Dates Next Due Influenza [...] Treatment Date Type Specialty Care Team Description 07/08/2019 Office Visit Cardiology Yandel Jaeger MD [address] [place] [address] [place] [address] Health Maintenance Due Date Last Done Comments DTaP,Tdap,and Td Vaccines (1 - Tdap) 1986 INFLUENZA VACCINE (#1) 2018 01/22/2018 PNEUMOCOCCAL 0-64 YEARS COMBINED SERIES (2 of 3 - 01/16/2019 11/21/2018 PPSV23) documented as of this encounter Results Not on filedocumented in this encounter Insurance Payer Benefit Plan / Subscriber ID Effective Dates Phone Address Type Group BCBS OF HIM BCBS BLUE [id number] 2019-Thelma [phone] [address] [phone] [id number] [place] [address] documented as of this encounter
--- OUTSIDE RECORDS SUMMARY | 2019-07-28 07:23 | XMS REPORT | Summary of Care ---
:1975 Author Organization [facility] - [facility] Address [address] [place] [id number] Care Team Providers Name Role Phone Darlene Dailey Primary Care Provider Reason for Referral (Routine) Status Reason Specialty Diagnoses / Procedures Referred By Referred To Contact Contact New Request Diagnoses Confusion Hepatic encephalopathy Liver mass Jaundice Obesity (BMI 30-39.9) Malnutrition of moderate degree Liver transplant candidate Chronic liver failure without hepatic coma Lack of follow-up after hospitalization Elen Frazier MD Patel, Maneesh N Lumbar herniated disc S/P right knee arthroscopy Chronic pain of right knee Alcoholic cirrhosis of liver with ascites UGIB (upper gastrointestinal bleed) Hypomagnesemia Anxiety Coagulopathy Spontaneous bacterial peritonitis [phone] Procedures Discharge Follow-up: PCP DARLENE DAILEY; 1 Week [id number] [place] [phone] Phone: Fax: Reason for Visit Reason Comments Altered mental status Auth/Cert Status Reason Specialty Diagnoses / Procedures Referred By Referred To Contact Contact Emergency Diagnoses HEPATIC ENCEPHALOPATHY [facility] Emergency Medicine Dept [address] [place] [address] Encounter Details Date Type Department Care Team Description 07/03/2019 - [facility] Juliet Cuellar DO [address] [place] [phone] Hepatic 07/04/2019 Encounter [facility] [place] Maxx Cleaning MD [address] [place] [address] [phone] encephalopathy Intensive Care Unit [address] [place] [address] Allergies No Known Allergiesdocumented as of this encounter (statuses as of 07/04/2019) Medications Medication Sig Dispensed Refills Start Date [...] daily. without hepatic coma rifAXIMin (XIFAXAN) 550 Take 550 mg by 0 Active mg tablet mouth 2 (two) times daily. gabapentin ER 300 mg Take 300 mg by 0 Active tablet, extended release mouth 2 (two) 24 hr times daily as needed for Pain (scale 4-6). hxaohpot-gvvp-OL-calcium- Take 1 tablet 0 Active mins 9 mg iron-400 mcg by mouth tablet daily. zinc sulfate (ZINC-220 Take by 0 Active ORAL) mouth. HYDROXYZINE HCL ORAL Take 50 mg by 0 Active mouth every 6 (six) hours as needed for Other (anxiety). ergocalciferol, vitamin Take 50,000 0 Active d2, (VITAMIN D2) 50,000 Units by mouth unit capsule weekly. escitalopram oxalate Take 20 mg by 0 Active (LEXAPRO) 20 mg tablet mouth daily. carisoprodol (SOMA) 350 Take 350 mg by 0 Active mg tablet mouth 4 (four) times daily as [...] Active tabletIndications: by mouth 3 Generalized abdominal (three) times pain, Fever, unspecified daily as fever cause needed for Pain (scale 1-3). furosemide 40 mg Take 1 tablet 90 tablet 0 05/17/2019 Active tabletIndications: Common by mouth bile duct dilatation, SBP daily. (spontaneous bacterial peritonitis) Magnesium 250 mg Take 1 tablet 270 tablet 0 05/16/2019 Active TabIndications: Common by mouth 3 bile duct dilatation, SBP (three) times (spontaneous bacterial daily. peritonitis) THIAMINE HCL ORAL Take by 0 Active mouth. HYDROcodone-acetaminophen Take 1 tablet 0 Active 10-325 mg tablet by mouth every 6 (six) hours as needed. dicyclomine 20 mg Take 1 tablet 20 tablet 0 06/12/2019 Active tabletIndications: Acute by mouth every febrile illness 6 (six) hours as needed for Abdominal pain. ondansetron (ZOFRAN) 4 mg Take 1 tablet 12 tablet 0 06/12/2019 Active tabletIndications: Acute by mouth every febrile illness 8 (eight) hours as needed for Nausea and Vomiting (N/V). magnesium oxide Take by mouth 0 Active (MAG-OXIDE ORAL) 2 (two) times daily. traMADol 50 mg Take 1 tablet 12 tablet 0 07/04/2019 Active tabletIndications: by mouth every Generalized abdominal 6 (six) hours pain, Enteritis, Colitis as needed for Pain (scale 7-10). traMADol 50 mg Take 1 tablet 16 tablet 0 06/02/201907/03 Discontinued tabletIndications: by mouth every /2019 (Reorder) Generalized abdominal 6 (six) hours pain, Enteritis, Colitis as needed for Pain (scale 7-10). documented as of this encounter (statuses as of 07/04/2019) Active Problems Problem Noted Date Hepatic encephalopathy [...] as of this encounter (statuses as of 07/04/2019) Immunizations Name Administration Dates Next Due Influenza [...] Sign Reading Time Taken Comments Blood Pressure 118/64 07/04/2019 8:00 AM CDT Pulse 78 07/04/2019 8:00 AM CDT Temperature 36.5 C (97.7 F) 07/04/2019 8:00 AM CDT Respiratory Rate 24 07/04/2019 8:00 AM CDT Oxygen Saturation 97% 07/04/2019 8:00 AM CDT Inhaled Oxygen Concentration - - Weight 85 kg (187 lb 4.8 oz) 07/04/2019 2:50 AM CDT Height 175.3 cm (5' 9") 07/04/2019 2:50 AM CDT Body Mass Index 27.66 07/04/2019 2:50 AM CDT documented in this encounter Discharge Instructions AttachmentsThe following attachments cannot be sent through Care Everywhere.Ammonia (Romanian)Cirrhosis (Romanian)Tramadol tablets (Romanian) documented in this encounter Plan of Treatment Name Type Priority Associated Diagnoses Order Schedule HEPATIC FUNCTION PANEL LAB RUPERT RUPERT for 1 Occurrences (53180) (ALB,T.PRO,BILI starting 07/05/2019 T,BU/BC,ALT,AST,ALK PHOS) until 07/05/2019 Magnesium Serum LAB Routine EVERY MORNING AT 0400 for 1 Days starting 07/05/2019 until 07/05/2019 Basic Metabolic Panel (NA, LAB Routine EVERY MORNING AT 0400 K, CL, CO2, GLUCOSE, BUN, for 1 Occurrences CREATININE, CA) starting 07/05/2019 until 07/05/2019 CBC with Differential LAB Routine EVERY MORNING AT 0400 for 1 Occurrences starting 07/05/2019 until 07/05/2019 Health Maintenance Due Date Last Done Comments DTaP,Tdap,and Td Vaccines (1 - Tdap) 1986 INFLUENZA VACCINE (#1) 2018 01/22/2018 PNEUMOCOCCAL 0-64 YEARS COMBINED SERIES (2 of 3 - 01/16/2019 11/21/2018 PPSV23) documented as of this encounter Procedures Procedure Name Priority Date/Time Associated Comments Diagnosis URINALYSIS STAT 07/04/2019 9:13 Confusion Results for this AM CDT procedure are in the results section. CBC WITH DIFFERENTIAL STAT 07/04/2019 12:12 Confusion Results for this AM CDT procedure are in the results section. CBC WITH DIFFERENTIAL Routine 07/04/2019 12:12 Confusion Results for this AM CDT procedure are in the results section. COMP. METABOLIC PANEL STAT 07/04/2019 12:12 Confusion Results for this (37552) AM CDT procedure are in the results section. BILI STAT 07/04/2019 12:12 Confusion Results for this UNCONJUGATED/BILI AM CDT procedure are in CONJUG the results section. MAGNESIUM Add-on 07/04/2019 12:12 Results for this AM CDT procedure are in the results section. AMMONIA, PLASMA STAT 07/04/2019 12:01 Confusion Results for this AM CDT procedure are in the results section. documented in this encounter Results URINALYSIS (07/04/2019 9:13 AM CDT) APPEARANCE Clear Clear [facility] COLOR Yellow Yellow [facility] PH 8.0 4.8 - 8.0 [facility] SP GRAVITY 1.008 1.003 - 1.030 [facility] GLU U QUAL Normal Normal [facility] BLOOD Negative Negative [facility] KETONES Negative Negative [facility] PROTEIN Negative Negative [facility] UROBILIN 2.0 mg/dL (A) Normal [facility] BILIRUBIN Negative Negative [facility] NITRITE Negative Negative [facility] LEUK VALNETINA Negative Negative [facility] RBC/HPF 2 0 - 3 HPF [facility] WBC/HPF <1 0 - 5 HPF [facility] BACTERIA Negative Negative [facility] MUCOUS Slight (A) Negative LPF [facility] Specimen Urine - URINE, CLEAN CATCH Performing Organization Address [facility] Centercode Phone Number [facility] CLIA: [id number], [address] [place] [phone] [facility] MAGNESIUM (07/04/2019 12:12 AM CDT) MAGNESIUM 1.5 (L) 1.7 - 2.4 mg/dL [facility] Specimen Blood - ARM, RIGHT Performing Organization Address [facility] Centercode Phone Number [facility] CLIA: [id number], [address] [place] [place] [phone] [facility] CBC WITH DIFFERENTIAL (07/04/2019 12:12 AM CDT) WBC 4.24 4.20 - 10.70 [facility] 10*3/L [facility] RBC 2.40 (L) 4.26 - 5.52 [facility] 10*6/L [facility] HGB 8.0 (L) 12.2 - 16.4 [facility] g/dL [facility] HCT 22.7 (L) 38.4 - 49.3 [facility] % [facility] MCV 94.6 81.7 - 95.6 [facility] fL [facility] MCH 33.3 (H) 26.1 - 32.7 [facility] pg [facility] MCHC 35.2 (H) 31.2 - 35.0 [facility] g/dL [facility] RDW-SD 64.1 (H) 38.5 - 51.6 [facility] RDW-CV 18.7 (H) 12.1 - 15.4 [facility] % [facility] PLT 64 (L) 150 - 328 [facility] 10*3/L [facility] MPV 8.8 (L) 9.8 - 13.0 [facility] IPF % 1.6Comment: 1.2 - 10.7 % [facility] Platelet count [facility] measured by [facility] fluorescence method. NRBC/100 WBC 0.0 0.0 - 10.0 [facility] /100 WBCs [facility] NRBC x10^3 <0.01 10*3/L [facility] GRAN MAT (NEUT) % 49.1 % [facility] IMM GRAN % 0.70 % [facility] LYMPH % 24.5 % [facility] MONO % 18.4 % [facility] EOS % 6.4 % [facility] BASO % 0.9 % [facility] GRAN MAT x10^3(ANC) 2.08 1.99 - 6.95 [facility] 10*3/uL [facility] IMM GRAN x10^3 0.03 0.00 - 0.06 [facility] 10*3/uL [facility] LYMPH x10^3 1.04 (L) 1.09 - 3.23 [facility] 10*3/uL [facility] MONO x10^3 0.78 0.36 - 1.02 [facility] 10*3/uL [facility] EOS x10^3 0.27 0.06 - 0.53 [facility] 10*3/uL [facility] BASO x10^3 0.04 0.01 - 0.09 [facility] 10*3/uL [facility] SCHISTOCYTES 1+ (A) [facility] TARGET CELLS 2+ (A) (none) [facility] Specimen Blood - ARM, RIGHT Performing Organization Address City/[facility]/Zipcode Phone Number [facility] CLIA: [id number], [address] [place] [phone] [facility] BILI UNCONJUGATED/BILI CONJUG (07/04/2019 12:12 AM CDT) BILI CONJ 0.1 0.0 - 0.3 mg/dL [facility] BILI UNCON 2.7 (H) 0.1 - 1.1 mg/dL [facility] Specimen Blood - ARM, RIGHT Performing Organization Address [facility] Centercode Phone Number [facility] CLIA: [id number], [address] [place] [phone] [facility] COMP. METABOLIC PANEL ([id number]) (07/04/2019 12:12 AM CDT) NA 136 135 - 145 [facility] mmol/L [facility] K 3.7 3.5 - 5.0 [facility] mmol/L [facility] CL 104 98 - 108 mmol/L [facility] CO2 TOTAL 23 23 - 31 mmol/L [facility] AGAP 9 2 - 16 [facility] BUN 12 7 - 23 mg/dL [facility] GLUCOSE 102 70 - 110 mg/dL [facility] CREATININE 1.19 0.60 - 1.25 [facility] mg/dL [facility] TOTAL BILI 4.7 (H) 0.1 - 1.1 mg/dL [facility] CALCIUM 9.1 8.6 - 10.6 [facility] mg/dL [facility] T PROTEIN 7.9 6.3 - 8.2 g/dL [facility] ALBUMIN 2.7 (L) 3.5 - 5.0 g/dL [facility] ALK PHOS 248 (H) 34 - 122 U/L [facility] ALTv 59 (H) 5 - 50 U/L [facility] AST(SGOT) 94 (H) 13 - 40 U/L [facility] eGFR Calculation 66.4 mL/min/1.73m2 [facility] (Non-[facility] [place]) [place] eGFR Calculation 80.5 mL/min/1.73m2 [facility] () [facility] Specimen Blood - ARM, RIGHT Narrative Performed At Association of Glomerular Filtration Rate [facility] (GFR) and Staging of Kidney Disease* [...] abnormalities in imaging tests). Performing Organization Address City/[facility]/Zipcode Phone Number [facility] CLIA: [id number], [address] [place] [phone] [facility] AMMONIA, PLASMA (07/04/2019 12:01 AM CDT) AMMONIA 66 (H) 9 - 33 umol/L [facility] Specimen Blood - ARM, RIGHT Performing Organization Address [facility]/Zipcode Phone Number [facility] CLIA: [id number], [address] [place] [phone] [facility] documented in this encounter Visit Diagnoses Diagnosis Hepatic encephalopathy - Primary Confusion Unspecified psychosis Liver mass Unspecified disorder of liver Jaundice Jaundice, unspecified, not of Obesity (BMI 30-39.9) Obesity, unspecified E44.0 Moderate protein calorie malnutrition Malnutrition of moderate degree Liver transplant candidate Chronic liver failure without hepatic coma Lack of follow-up after hospitalization Personal history of noncompliance with medical treatment, presenting hazards to health Lumbar herniated disc Displacement of lumbar intervertebral disc without myelopathy S/P right knee arthroscopy Other postprocedural status Chronic pain of right knee Alcoholic cirrhosis of liver with ascites Alcoholic cirrhosis of liver UGIB (upper gastrointestinal bleed) Hemorrhage of gastrointestinal tract, unspecified Hypomagnesemia Disorders of magnesium metabolism Anxiety Anxiety state, unspecified Coagulopathy Other and unspecified coagulation defects Spontaneous bacterial peritonitis Generalized abdominal pain Abdominal pain, generalized Enteritis Other and unspecified noninfectious gastroenteritis and colitis Colitis Other and unspecified noninfectious gastroenteritis and colitis documented in this encounter Administered Medications Medication Order MAR Action Action Date Dose Rate Site acetaminophen-codeine (TYLENOL Given 07/04/2019 9:19 AM CDT 1 tablet #3) 300-30 mg tablet 1 tablet 1 tablet, Oral, Q6HPRN, Starting Leighann 07/04/19 at 0204, Until 07/06/19 at 0203, Routine, Pain (scale 4-6) escitalopram oxalate (LEXAPRO) tablet 20 mg Given 07/04/2019 9:01 AM CDT 20 mg 20 mg, Oral, DAILY, First dose on Leighann 07/04/19 at 0900, Until Discontinued, Routine foLIC acid (FOLATE) tablet 1 mg Given 07/04/2019 9:01 AM CDT 1 mg 1 mg, Oral, DAILY, First dose on Leighann 07/04/19 at 0900, Until Discontinued furosemide (LASIX) tablet 40 mg Given 07/04/2019 9:01 AM CDT 40 mg 40 mg, Oral, DAILY, First dose on Leighann 07/04/19 at 0900, Until Discontinued, Routine lactulose (CEPHULAC) solution 30 mL Given 07/04/2019 9:01 AM CDT 30 mL 30 mL, Oral, TID, First dose on Leighann 07/04/19 at 0800, Until Discontinued, Routine magnesium oxide (MAG-OX 400) tablet 400 mg Given 07/04/2019 9:01 AM CDT 400 mg 400 mg, Oral, BID, First dose on Leighann 07/04/19 at 0800, Until Discontinued sxsqncst-etdp-DQ-calcium-mins (THERA-M) 9 Given 07/04/2019 9:01 AM CDT 1 tablet mg iron-400 mcg tablet 1 tablet 1 tablet, Oral, DAILY, First dose on Leighann 07/04/19 at 0900, Until Discontinued, Routine rifAXIMin (XIFAXAN) tablet 550 mg Given 07/04/2019 9:01 AM CDT 550 mg 550 mg, Oral, BID, First dose on Leighann 07/04/19 at 0800, Until Discontinued, Routine, Reason for Anti-Infective: Empiric Therapy for Suspected Infection, Empiric Therapy Site: Abdominal, Duration of therapy: 7 days thiamine (VITAMIN B1) tablet 100 mg Given 07/04/2019 9:01 AM CDT 100 mg 100 mg, Oral, DAILY, First dose on Leighann 07/04/19 at 0900, Until Discontinued Medication Order MAR Action Action Date Dose Rate Site lactulose (CEPHULAC) solution 30 Given 07/04/2019 1:20 AM CDT 30 mL mL 30 mL, Oral, ONCE, 1 dose, Leighann 07/04/19 at 0115, RUPERT documented in this encounter Insurance Payer Benefit Plan / Subscriber ID Effective Dates Phone Address Type Group BCBS OF HIM BCBS BLUE [id number] [phone] [facility] t 7 [id number] [place] [address] documented as of this encounter
--- OUTSIDE RECORDS SUMMARY | 2019-07-28 07:23 | XMS REPORT ---
:1975 Author Organization [employer] Care Team Providers Name Role Phone Dailey [facility] Provider Role Unavailable Allergies No Known Allergies [...] Active Problem Vitamin D deficiency E55.9 Active Problem Anxiety F41.9 Active Problem Liver lesion K76.9 Active Problem Erectile dysfunction, unspecified N52.9 Active erectile dysfunction type Problem History of alcohol abuse F10.11 Active Problem Alcoholic cirrhosis of liver with K70.31 Active ascites Medications No Known Medications Results No Known Results Summary Purpose [employer] Submission
--- OUTSIDE RECORDS SUMMARY | 2019-07-28 07:23 | XMS REPORT | Summary of Care ---
:1975 Author Organization [facility] - [facility] Address [address] [place] [address] Care Team Providers Name Role Phone Сергей Dailey Primary Care Provider Reason for Referral (Routine) Status Reason Specialty Diagnoses / Referred By Referred To Procedures Contact Contact New Request Cardiology Diagnoses Pulmonary hypertension Hepatic cirrhosis, unspecified hepatic cirrhosis type, unspecified whether ascites present Yandel Jaeger MD Procedures Cardiac Cath Request for Service (Cardiology Use Only) [address] [facility] [address] [place] [address] Reason for Visit Reason Comments New Patient Establish Care/Hospital Follow up (Routine) Status Reason Specialty Diagnoses / Referred By Referred To Procedures Contact Contact New Request Cardiology Diagnoses Pulmonary hypertension [place], Procedures CONSULT/REFERRAL CARDIOLOGY MD Gladis [facility] [place] [address] Encounter Details Date Type Department Care Team Description 07/08/2019 Office Visit [facility] Yandel Jaeger MD Pulmonary hypertension (Primary Dx); Cardiology- [address] Hepatic cirrhosis, unspecified hepatic cirrhosis type, unspecified whether ascites present 146 [facility] [place] [address] [place] [address] [phone] Allergies No Known Allergiesdocumented as of this encounter (statuses as of 07/08/2019) Medications Medication Sig Dispensed Refills Start Date [...] times daily. gabapentin ER 300 mg Take 600 mg by 0 Active tablet, extended release mouth 3 24 hr (three) times daily. qmkwdpls-msko-HK-calcium- Take 1 tablet 0 Active mins 9 [...] Acute upper GI bleed needed (esophageal pain). furosemide 40 mg Take 1 tablet 90 tablet 0 05/17/2019 Active tabletIndications: Common by mouth bile duct dilatation, SBP daily. (spontaneous bacterial peritonitis) THIAMINE HCL ORAL Take by 0 Active mouth. HYDROcodone-acetaminophen Take 1 tablet 0 Active 10-325 mg tablet by mouth every 6 (six) hours as needed. magnesium oxide Take 400 mg by 0 Active (MAG-OXIDE ORAL) mouth 2 (two) times daily. traMADol 50 mg Take 1 tablet 12 tablet 0 07/04/2019 Active tabletIndications: by mouth every Generalized abdominal 6 (six) hours pain, Enteritis, Colitis as needed for Pain (scale 7-10). cyclobenzaprine 5 mg Take 1 tablet 15 tablet 0 05/10/201907/07 Discontinued tabletIndications: Leg by mouth (Therapy cramps, Hypomagnesemia (three) times completed) daily. methocarbamol 500 mg Take 1 tablet 18 tablet 0 05/12/201907/07 Discontinued tabletIndications: by mouth (Therapy Generalized abdominal (three) times completed) pain, Fever, unspecified daily as fever cause needed for Pain (scale 1-3). Magnesium 250 mg Take 1 tablet 270 tablet 0 05/16/201907/07 Discontinued TabIndications: Common by mouth (Duplicate) bile duct dilatation, SBP (three) times (spontaneous bacterial daily. peritonitis) dicyclomine 20 mg Take 1 tablet 20 tablet 0 06/12/201907/07 Discontinued tabletIndications: Acute by mouth (Therapy febrile illness 6 (six) hours completed) as needed for Abdominal pain. ondansetron (ZOFRAN) 4 mg Take 1 tablet 12 tablet 0 06/12/201907/07 Discontinued tabletIndications: Acute by mouth (Therapy febrile illness 8 (eight) completed) hours as needed for Nausea and Vomiting (N/V). documented as of this encounter (statuses as of 07/08/2019) Active Problems Problem Noted Date Hepatic encephalopathy [...] as of this encounter (statuses as of 07/08/2019) Immunizations Name Administration Dates Next Due HEP B, Adult Dosage 04/15/2019 Influenza Virus Vaccine 12/23/2018, 01/22/2018 Pneumococcal 13 Conjugate, PCV13 (Prevnar 13) [...] Sign Reading Time Taken Comments Blood Pressure 125/76 07/08/2019 10:13 AM CDT Pulse 83 07/08/2019 10:13 AM CDT Temperature - - Respiratory Rate 20 07/08/2019 10:06 AM CDT Oxygen Saturation 100% 07/08/2019 10:06 AM CDT Inhaled Oxygen Concentration - - Weight 85.5 kg (188 lb 9.6 oz) 07/08/2019 10:06 AM CDT Height 175.3 cm (5' 9") 07/08/2019 10:06 AM CDT Body Mass Index 27.85 07/08/2019 10:06 AM CDT documented in this encounter Progress Notes Yandel Jaeger MD - 07/08/2019 9:20 AM CDT CARDIOLOGY CLINIC NOTE 07/08/2019 Reason for Referral/Presenting Complaint: pulmonary hypertension PCP: Сергей Dailey History of Present Illness: Stuart Glass is a 44 years old male with history of liver cirrhosis. Here for evaluation of pulmonary hypertension and RHC. He is physically active although sleepy. No chest pain or significant SOB. Taking lasix and spironolactone. Most recent ECHO in 02/2019 showing RVSP 35-40 mmHg in [facility]. Stress test negative. Cardiovascular testing: EKG: Normal sinus rhythm. Normal EKG. Echocardiogram: 02/2019 IV saline contrast injection was negative for a PFO (patent foramen ovale) at rest and post Valsalva . IV saline contrast with delayed imaging is negative for intra pulmonic shunting. The left ventricle is chamber size (by PSLAX dimension) is normal (male - LVIDd 4.2-5.8cm) . All of the LV segments contract normally . LVEF by Amaya's method of disk assessment is normal (>60%) . Estimated peak systolic PA pressure is 35-40 mmHg . Review of Systems: General: (-) fever, (-) chills, (-) weight change, (-) dizziness, (-) fatigue Skin: (-) rash HEENT: (-) headache, (-) change in vision Neck: (-) difficulty swallowing Heme: negative Resp: (-) cough, (-) dyspnea on exertion Cardio: (-) chest pain, (-) palpitations, (-) syncope GI: (-) vomiting, (-) diarrhea : negative Endo: (-) diabetes, (-) thyroid disease Neuro: (-) numbness, (-) tingling, (-) weakness Back: (-) pain BINTA: (-) muscle pain, (-) claudication Psych: (-) anxiety, (-) depression Past Medical History: Past Medical History: Diagnosis Date Ascites Chronic back pain Cirrhosis Hyponatremia Liver mass 2019 Current Medications: Current Outpatient Medications Medication Sig Dispense Refill traMADol 50 mg tablet Take 1 tablet by mouth every 6 (six) hours as needed for Pain (scale 7-10). 12 tablet 0 magnesium oxide (MAG-OXIDE ORAL) Take 400 mg by mouth 2 (two) times daily. HYDROcodone-acetaminophen 10-325 mg tablet Take 1 tablet by mouth every 6 ( six) hours as needed. THIAMINE HCL ORAL Take by mouth. furosemide 40 mg tablet Take 1 tablet by mouth daily. 90 tablet 0 carisoprodol (SOMA) 350 mg tablet Take 350 mg by mouth 4 (four) times daily as needed for Insomnia. ergocalciferol, vitamin d2, (VITAMIN D2) 50,000 unit capsule Take 50,000 Units by mouth weekly. escitalopram oxalate (LEXAPRO) 20 mg tablet Take 20 mg by mouth daily. folic acid 0.8 mg Cap Take 1 capsule by mouth daily. gabapentin ER 300 mg tablet, extended release 24 hr Take 600 mg by mouth 3 ( three) times daily. HYDROXYZINE HCL ORAL Take 50 mg by mouth every 6 (six) hours as needed for Other (anxiety). mlkgmozt-wbbd-HU-calcium-mins 9 mg iron-400 mcg tablet Take 1 tablet by mouth daily. rifAXIMin (XIFAXAN) 550 mg tablet Take 550 mg by mouth 2 (two) times daily. zinc sulfate (ZINC-220 ORAL) Take by mouth. lactulose 10 gram/15 mL solution Take 30 mL by mouth 2 (two) times daily. 500 mL 12 spironolactone 100 mg tablet Take 1 tablet by mouth daily. (Patient taking differently: Take 50 mg by mouth 2 (two) times daily.) 30 tablet 12 sucralfate 100 mg/mL suspension Take 10 mL by mouth as needed (esophageal pain). 480 mL 0 No current facility-administered medications for this visit. Social History: Social History Socioeconomic History Marital status: Spouse name: Benjamin Hernandez Number of children: 1 Years of education: Not on file Highest education level: Not on file Occupational History Occupation: [employer] Social Needs Financial resource strain: Not on [...] file Gets together: Not on file Attends confucianist service: Not on file Active member of [...] History Narrative Not on file Family History Family History Problem Relation Age of Onset Hypertension Mother Diabetes Father Liver Cancer NoFHx Physical Examination: BP 125/76 | Pulse 83 | Resp 20 | Ht 5' 9" (1.753 m) | Wt 188 lb 9.6 oz ( 85.5 kg) | SpO2 100% |BMI 27.85 kg/m Constitutional: alert and oriented x 3 (person, place and date/time); no apparent distress ENT: normocephalic atraumatic, supple, no lymphadenopathy, no bruits, no JVD Lungs: clear to auscultation bilaterally Cardiovascular: S1, S2 normal, regular; no murmurs, rubs or gallops GI: soft; non-tender; non-distended; normoactive bowel sounds : not examined Musculoskeletal: Extremities: no clubbing, cyanosis, or edema Skin: no rashes Neuro: no focal deficits Assessment/Plan: ICD-10-CM ICD-9-CM 1. Pulmonary hypertension I27.20 416.8 2. Hepatic cirrhosis, unspecified hepatic cirrhosis type, unspecified whether ascites present K74.93869.5 Liver cirrhosis. ECHO showed borderline/mild pulmonary hypertension. Will schedule RHC to further assess pulmonary hypertension per transplant team. Risk and benefit discussed in detail. Questions answered. Patient was counseled for lifestyle modifications including: diet and exercise Thank you for allowing us to participate in the care of your patient. Please feel free to contact usfor any questions or if we can be of further assistance. Yandel Jaeger MD, [facility] HOSPITALDaniel Steel Fabricating Supervisor, Division of Cardiology [facility] documented in this encounter Plan of Treatment Name Type Priority Associated Diagnoses Order Schedule aPTT LAB Routine Pulmonary hypertension 1 Occurrences starting Hepatic cirrhosis, 07/08/2019 until unspecified hepatic 10/08/2019 cirrhosis type, unspecified whether ascites present BASIC METABOLIC PANEL LAB Routine Pulmonary hypertension 1 Occurrences starting (NA, K, CL, CO2, Hepatic cirrhosis, 07/08/2019 until GLUCOSE, BUN, unspecified hepatic 10/08/2019 CREATININE, CA) cirrhosis type, unspecified whether ascites present PROFILE / HEMOGRAM LAB Routine Pulmonary hypertension 1 Occurrences starting Hepatic cirrhosis, 07/08/2019 until unspecified hepatic 10/06/2019 cirrhosis type, unspecified whether ascites present PROTHROMBIN TIME / INR LAB Routine Pulmonary hypertension 1 Occurrences starting Hepatic cirrhosis, 07/08/2019 until unspecified hepatic 10/08/2019 cirrhosis type, unspecified whether ascites present Health Maintenance Due Date Last Done Comments DTaP,Tdap,and Td Vaccines (1 - Tdap) 1986 INFLUENZA VACCINE (#1) 2018 01/22/2018 PNEUMOCOCCAL 0-64 YEARS COMBINED SERIES (2 of 3 - 01/16/2019 11/21/2018 PPSV23) documented as of this encounter Results Not on filedocumented in this encounter Visit Diagnoses Diagnosis Pulmonary hypertension - Primary Other chronic pulmonary heart diseases Hepatic cirrhosis, unspecified hepatic cirrhosis type, unspecified whether ascites present documented in this encounter Insurance Payer Benefit Plan / Subscriber ID Effective Dates Phone Address Type Group BCBS OF HIM BCBS LIA [id number] 2019-Thelma [phone] [address] [facility] [phone] [place] [address] documented as of this encounter
--- OUTSIDE RECORDS SUMMARY | 2019-07-28 07:24 | XMS REPORT | Summary of Care ---
:1975 Author Organization [facility] - [facility] Address [address] [place] [address] Care Team Providers Name Role Phone Сергей Dailey Primary Care Provider Reason for Referral (Routine) Status Reason Specialty Diagnoses / Referred By Referred To Procedures Contact Contact New Request Cardiology Diagnoses Pulmonary hypertension Hepatic cirrhosis, unspecified hepatic cirrhosis type, unspecified whether ascites present Yandel Jaeger MD Procedures Cardiac Cath Request for Service (Cardiology Use Only) [address] [facility] [address] [place] [address] Reason for Visit Reason Comments New Patient Establish Care/Hospital Follow up (Routine) Status Reason Specialty Diagnoses / Referred By Referred To Procedures Contact Contact New Request Cardiology Diagnoses Pulmonary hypertension [place], Procedures CONSULT/REFERRAL CARDIOLOGY MD Gladis [facility] [place] [address] Encounter Details Date Type Department Care Team Description 07/08/2019 Office Visit [facility] Yandel Jaeger MD Pulmonary hypertension (Primary Dx); Cardiology- [address] Hepatic cirrhosis, unspecified hepatic cirrhosis type, unspecified whether ascites present 146 [facility] [place], [address] [place] [address] [phone] Allergies No Known Allergiesdocumented as of this [...] mouth 3 24 hr (three) times daily. krynymab-iumu-FG-calcium- Take 1 tablet 0 Active mins 9 [...] in 02/2019 showing RVSP 35-[address] [facility]. Stress test negative. Cardiovascular testing: EKG: [...] (six) hours as needed for Other (anxiety). fiwacise-kabl-VW-calcium-mins 9 mg iron-400 mcg tablet Take 1 [...] level: Not on file Occupational History Occupation: [employer] [place] Social Needs Financial resource strain: Not on [...] hepatic cirrhosis type, unspecified whether ascites present K74.38679.5 Liver cirrhosis. ECHO showed borderline/mild pulmonary hypertension. [...] be of further assistance. Yandel Jaeger MD, [facility]TONDaniel Commission Associate, Division of Cardiology [facility] documented in this encounter Plan of Treatment [...] Type Group BCBS OF HIM BCBS LIA [id number] 2019-Thelma [phone] [facility] [phone] [place] [address] documented as of this encounter
--- OUTSIDE RECORDS SUMMARY | 2019-07-28 07:25 | XMS REPORT | Summary of Care ---
:[address] [facility] Address [address] [place] [address] Care Team Providers Name Role Phone Сергей Dailey Primary Care Provider Reason for Referral Radiology Services (Routine) Status Reason Specialty Diagnoses / Referred By Referred To Procedures Contact Contact Pending Review Diagnostic Diagnoses HCC (hepatocellular carcinoma) Iza Radiology Procedures IR EMBOLIZATION TUMORS ORGAN ISCHEMIA OR INFARCTION IR OTHER MD Gladis [address] [place] [address] Reason for Visit Reason Comments Orders Encounter Details Date Type Department Care Team Description 06/21/2019 Nurse Visit [facility] Transplant- Gladis Couch MD [address] [place] [phone] HCC ([facility] Nurse, Transplant carcinoma) ([facility] Dx) [address] [place] [phone] Allergies No Known Allergiesdocumented as of this encounter (statuses as of 07/09/2019) Medications Medication Sig Dispensed Refills Start Date [...] mouth 3 24 hr (three) times daily. tccjkmek-akhp-WI-calcium- Take 1 tablet 0 Active mins 9 [...] mouth every 6 (six) hours as needed. cyclobenzaprine 5 mg Take 1 tablet 15 [...] SBP (three) times (spontaneous bacterial daily. peritonitis) traMADol 50 mg Take 1 tablet 16 tablet 0 06/02/201907/03 Discontinued tabletIndications: by mouth every /2019 (Reorder) Generalized abdominal 6 (six) hours pain, Enteritis, Colitis as needed for Pain (scale 7-10). dicyclomine 20 mg Take 1 tablet 20 tablet 0 06/12/201907/07 Discontinued tabletIndications: Acute by mouth every /2019 (Therapy febrile illness 6 (six) hours completed) as needed for Abdominal pain. ondansetron (ZOFRAN) 4 mg Take 1 tablet 12 tablet 0 06/12/201907/07 Discontinued tabletIndications: Acute by mouth every /2019 (Therapy febrile illness 8 (eight) completed) hours as needed for Nausea and Vomiting (N/V). documented as of this encounter (statuses as of 07/09/2019) Active Problems Problem Noted Date Hepatic encephalopathy [...] as of this encounter (statuses as of 07/09/2019) Immunizations Name Administration Dates Next Due HEP [...] on filedocumented in this encounter Progress Notes Blanka Wallis RN - 06/21/2019 8:30 AM CSTKarnofsky: 50% HCV: No Treated: N/A HCC: Yes Ascites: No HE: Controlled MELD: 22 CKD: No Health Maintance: under review Patient seen in liver transplant clinic today to initiate the liver transplant evaluation. Patient was accompanied by his who assisted as a historians as well as provided support. Education provided to all present, liver transplant packet provided. Evaluation, MRB/patient selection, pre-transplant listing process, wait list, pre-op , frankie-op and post op education initiated. Consents reviewed and signed; including evaluation consent and acknowledgement of receipt of SRTR data and [facility] wait list/multi-listing brochure. Opportunities to ask questions provided. Plan of care reviewed; contact information provided. Patient seen and assessed by liver transplant multidisciplinary team including transplant cash analyst Dr. Couch, client support coordinator Blanka Wallis RN, BSN, CCTC. The patient was also assessed by JAHAIRA Santillan and Hayden Elliott RD. documented in this encounter Plan of Treatment Name Type Priority Associated Diagnoses Order Schedule CBC WITH DIFFERENTIAL LAB Routine HCC (hepatocellular Expected: carcinoma) 06/21/2019, Expires: 06/21/2020 BASIC METABOLIC PANEL LAB Routine HCC (hepatocellular Expected: (NA, K, CL, CO2, GLUCOSE, carcinoma) 06/21/2019, Expires: BUN, CREATININE, CA) 06/21/2020 PROTHROMBIN TIME / INR LAB Routine HCC (hepatocellular Expected: carcinoma) 06/21/2019, Expires: 06/21/2020 CREATININE LAB Routine HCC (hepatocellular Expected: carcinoma) 06/21/2019, Expires: 06/21/2020 IR EMBOLIZATION TUMORS IMAGING Routine HCC (hepatocellular Expected: ORGAN ISCHEMIA OR carcinoma) 06/21/2019, Expires: INFARCTION 06/21/2020 Health Maintenance Due Date Last Done Comments DTaP,Tdap,and Td Vaccines (1 - Tdap) 1986 PNEUMOCOCCAL 0-64 YEARS COMBINED SERIES (2 01/16/2019 11/21/2018 of 3 - PPSV23) INFLUENZA VACCINE Completed 12/23/2018, 01/22/2018 documented as of this encounter Results Not on filedocumented in this encounter Visit Diagnoses Diagnosis HCC (hepatocellular carcinoma) - Primary Malignant neoplasm of liver, primary documented in this encounter Insurance Payer Benefit Plan / Subscriber ID Effective Phone Address Type Group Dates [facility] [id number] 2019-Pres [phone] HMO ADVANTAGE HMO ent [phone] [place] [address] [facility] STAR xxxxxxxxx 2019-3/ Medicaid [facility] PLAN - MANAGED MEDICAID documented as of this encounter
--- OUTSIDE RECORDS SUMMARY | 2019-07-28 07:25 | XMS REPORT | Summary of Care ---
:1975 Author Organization [facility] Address [address] [place] [address] Care Team Providers Name Role Phone Сергей Dailey Primary Care Provider Reason for Visit Reason Comments New Evaluation Encounter Details Date Type Department Care Team Description 07/08/2019 Case Management [facility] Jv Couch New Evaluation Transplant-[place] MD [facility] [address] [phone] Allergies No Known Allergiesdocumented as of this [...] hepatic daily. coma rifAXIMin (XIFAXAN) 550 mg tablet Take 550 mg by 0 Active mouth 2 (two) times daily. gabapentin ER 300 mg tablet, Take 600 mg by 0 Active extended release 24 hr mouth 3 (three) times daily. mbkgpdvq-pxzn-YR-calcium-mins 9 Take 1 tablet by 0 Active [...] as needed upper GI bleed (esophageal pain). furosemide 40 mg Take 1 tablet by 90 tablet 0 05/17/2019 Active tabletIndications: Common bile mouth daily. duct dilatation, SBP (spontaneous bacterial peritonitis) THIAMINE HCL ORAL Take by mouth. 0 Active HYDROcodone-acetaminophen 10-325 Take 1 tablet by 0 Active mg tablet mouth every 6 (six) hours as needed. magnesium oxide (MAG-OXIDE ORAL) Take 400 mg by 0 Active mouth 2 (two) times daily. traMADol 50 mg tabletIndications: Take 1 tablet by 12 tablet 0 07/04/2019 Active Generalized abdominal pain, mouth every 6 (six) Enteritis, Colitis hours as needed for Pain (scale 7-10). documented [...] Priority Associated Diagnoses Order Schedule CBC WITH DIFF LAB Routine Pre-transplant 1 Occurrences starting evaluation for chronic 07/08/2019 until liver disease 10/08/2019 HEPATIC FUNCTION PANEL LAB Routine Pre-transplant 1 Occurrences starting (94795) (ALB,T.PRO,BILI evaluation for chronic 07/08/2019 until T,BU/BC,ALT,AST,ALK liver disease 10/08/2019 PHOS) PROTHROMBIN TIME / INR LAB Routine Pre-transplant 1 Occurrences starting evaluation for chronic 07/08/2019 until liver disease 10/08/2019 BASIC METABOLIC PANEL LAB Routine Pre-transplant Expected: 07/08/2019, (NA, K, CL, CO2, evaluation for chronic Expires: 07/07/2020 GLUCOSE, BUN, liver disease CREATININE, CA) Health Maintenance Due Date Last Done Comments [...] Type Group BCBS OF HIM BCBS BLUE [id number] 2019-Thelma [phone] [address] [facility] t [phone] [place] [address] documented as of this encounter
--- OUTSIDE RECORDS SUMMARY | 2019-07-28 07:26 | XMS REPORT | Summary of Care ---
:1975 Author Organization [facility] Address [address] [place] [address] Care Team Providers Name Role Phone Сергей Dailey Primary Care Provider Reason for Visit Reason Comments Orders Encounter Details Date Type Department Care Team Description 07/09/2019 Case Management [facility] Jv Couch Orders Transplant-[place] MD [facility] [address] [phone] Allergies No Known Allergiesdocumented as of this [...] 24 hr mouth 3 (three) times daily. vxdpfjrf-ewqt-ML-calcium-mins 9 Take 1 tablet by 0 Active [...] Name Type Priority Associated Diagnoses Order Schedule PROTHROMBIN TIME / INR LAB Routine Pre-transplant 1 Occurrences starting evaluation for chronic 07/09/2019 until liver disease 10/09/2019 CBC WITH DIFF LAB Routine Pre-transplant 1 Occurrences starting evaluation for chronic 07/09/2019 until liver disease 10/09/2019 HEPATIC FUNCTION PANEL LAB Routine Pre-transplant 1 Occurrences starting (38798) (ALB,T.PRO,BILI evaluation for chronic 07/09/2019 until T,BU/BC,ALT,AST,ALK liver disease 10/09/2019 PHOS) BASIC METABOLIC PANEL LAB Routine Pre-transplant 1 Occurrences starting (NA, K, CL, CO2, evaluation for chronic 07/09/2019 until GLUCOSE, BUN, liver disease 10/09/2019 CREATININE, CA) Health Maintenance Due Date Last [...] Type Group BCBS OF HIM BCBS LIA [id number] 2019-Thelma [phone] [address] [facility] [phone] [place] [address] documented as of this encounter
--- OUTSIDE RECORDS SUMMARY | 2019-07-28 07:27 | XMS REPORT | Summary of Care ---
:1975 Author Organization [facility] Address [address] [place] [address] Care Team Providers Name Role Phone Сергей Dailey Primary Care Provider Reason for Visit Reason Comments LAB WORK Auth/Cert Status Reason Specialty Diagnoses / Procedures Referred By Contact Referred To Contact Phlebotomy Diagnoses Pre-transplant evaluation for chronic liver disease Adc Pob Lab Draw Procedures pt/ inr Professional Office Building [address] [place] [address] , [address] [place] [address] Encounter Details Date Type Department Care Team Description 07/09/2019 Medical Administrative Technician Visit [facility] Jv Couch MD [address] [place] [address] HCC (hepatocellular carcinoma); Professional Office Pob, Adc Lab Main Pre-transplant evaluation for chronic liver disease; Building Phlebotomy Pulmonary hypertension; Lab Hepatic cirrhosis, unspecified hepatic cirrhosis type, unspecified whether ascites present Professional Office Building [address] [place] [address] , [address] [place] [address] Allergies No Known Allergiesdocumented as of this [...] 24 hr mouth 3 (three) times daily. twotkpzo-ghoh-AB-calcium-mins 9 Take 1 tablet by 0 Active [...] Treatment Name Type Priority Associated Diagnoses Date/Time CBC WITH DIFF LAB Routine Pre-transplant evaluation 07/09/2019 3:20 PM CDT for chronic liver disease CBC WITH DIFFERENTIAL LAB Routine Pre-transplant evaluation 07/09/2019 3: 20 PM CDT for chronic liver disease Health Maintenance Due Date Last Done Comments DTaP,Tdap,and Td Vaccines (1 - Tdap) 1986 PNEUMOCOCCAL 0-64 YEARS COMBINED SERIES (2 01/16/2019 11/21/2018 of 3 - PPSV23) INFLUENZA VACCINE Completed 12/23/2018, 01/22/2018 documented as of this encounter Results Not on filedocumented in this encounter Visit Diagnoses Diagnosis HCC (hepatocellular carcinoma) Malignant neoplasm of liver, primary Pre-transplant evaluation for chronic liver disease Other specified pre-operative examination Pulmonary hypertension Other chronic pulmonary heart diseases Hepatic cirrhosis, unspecified hepatic cirrhosis type, unspecified whether ascites present documented in this encounter Insurance Payer Benefit Plan / Subscriber ID Effective Dates Phone Address Type Group BCBS OF HIM BCBS LIA [id number] 2019-Thelma [phone] [address] [facility] t [id number] [place] [address] documented as of this encounter
--- OUTSIDE RECORDS SUMMARY | 2019-07-28 07:27 | XMS REPORT | Summary of Care ---
:1975 Author Organization [facility] Address [address] [place] [address] Care Team Providers Name Role Phone Срегей Dailey Sohail Primary Care Provider Reason for Visit Reason Comments ABO Verification Encounter Details Date Type Department Care Team Description 07/10/2019 Case Management [facility] Iza ABO Verification Transplant-[place] [facility] [address] [place] [address], [place] [address] [phone] Allergies No Known Allergiesdocumented as of this encounter (statuses as of 07/10/2019) Medications Medication Sig Dispensed Refills Start Date [...] 24 hr mouth 3 (three) times daily. lleslpda-omlw-YB-calcium-mins 9 Take 1 tablet by 0 Active [...] as of this encounter (statuses as of 07/10/2019) Active Problems Problem Noted Date Hepatic encephalopathy [...] as of this encounter (statuses as of 07/10/2019) Immunizations Name Administration Dates Next Due HEP [...] encounter Progress Notes Blanka Wallis RN - 07/10/2019 11:51 AM CDT TRANSPLANT ABO VERIFICATION PRIOR TO LISTING Name: Stuart Lynch : 75 #: [id number] SSN: [id number] ABO SOURCE #1 & 2 Results for STUART LYNCH ( ) as of 07/10/2019 11:43 Ref. Range 06/21/2019 09:44 06/21/2019 09:54 ABO & RH Unknown O POSITIVE O POSITIVE IAT Unknown Negative Facility: [facility] Electronic signature on this document attests to the verification of source documentation for accuracy of the results identified above. documented in this encounter Plan of Treatment [...] Type Group BCBS OF HIM BCBS LIA [id number] 2019-Thelma [phone] [address] [facility] [phone] [place] [address] documented as of this encounter
--- OUTSIDE RECORDS SUMMARY | 2019-07-28 07:27 | XMS REPORT | Summary of Care ---
:1975 Author Organization [facility] Address [address] [place] [address] Care Team Providers Name Role Phone Сергей Dailey Sohail Primary Care Provider Encounter Details Date Type Department Care Team Description 07/10/2019 [facility]Out[facility] C[facility] MD Transplant-[address] [place] [address] [facility] [phone] [place] [address] [phone] Allergies No Known Allergiesdocumented as of this [...] 24 hr mouth 3 (three) times daily. cudfbmey-erit-ZL-calcium-mins 9 Take 1 tablet by 0 Active [...] Type Group BCBS OF HIM BCBS BLUE [id number] 2019-Thelma [phone] [address] [facility] t [id number] [place] [address] documented as of this encounter
--- OUTSIDE RECORDS SUMMARY | 2019-07-28 07:27 | XMS REPORT | Summary of Care ---
:1975 Author Organization [facility] Address [address] [place] [address] Care Team Providers Name Role Phone Сергей Dailey Primary Care Provider Reason for Visit Reason Comments LAB WORK Auth/Cert Status Reason Specialty Diagnoses / Procedures Referred By Contact Referred To Contact Phlebotomy Diagnoses Pre-transplant evaluation for chronic liver disease Adc Pob Lab Draw Procedures pt/ inr Professional Office Building [address] [place] [address] , [address] [place] [address] Encounter Details Date Type Department Care Team Description 07/09/2019 Wood Heel Back Liner Visit [facility] Jv Couch MD [address] [place] [address] HCC (hepatocellular carcinoma); Professional Office Pob, Adc Lab Main Pre-transplant evaluation for chronic liver disease; Building Phlebotomy Pulmonary hypertension; Lab Hepatic cirrhosis, unspecified hepatic cirrhosis type, unspecified whether ascites present Professional Office Building [address] [place] [address] , [address] [place] [address] Allergies No Known Allergiesdocumented as [...] 24 hr mouth 3 (three) times daily. phqwztud-ysrg-ER-calcium-mins 9 Take 1 tablet by 0 Active [...] Date/Time CBC WITH DIFF LAB Routine Pre-transplant 07/09/2019 3:31 PM evaluation for chronic CDT liver disease HEPATIC FUNCTION PANEL LAB Routine Pre-transplant 07/09/2019 3:31 PM ([id number]) (ALB,T.PRO,BILI evaluation for chronic CDT T,BU/BC,ALT,AST,ALK PHOS) liver disease PROTHROMBIN TIME / INR LAB Routine Pre-transplant 07/09/2019 3:31 PM evaluation for chronic CDT liver disease BASIC METABOLIC PANEL LAB Routine Pre-transplant 07/09/2019 3:31 PM (NA, K, CL, CO2, GLUCOSE, evaluation for chronic CDT BUN, CREATININE, CA) liver disease aPTT LAB Routine Pulmonary hypertension 07/09/2019 3:31 PM Hepatic cirrhosis, CDT unspecified hepatic cirrhosis type, unspecified whether ascites present CBC WITH DIFFERENTIAL LAB Routine Pre-transplant 07/09/2019 3:31 PM evaluation for chronic CDT liver disease Health Maintenance Due Date Last [...] Type Group BCBS OF HIM BCBS BLUE [id number] 2019-Thelma [phone] [address] HMO [facility] t [id number] [place] [address] documented as of this encounter
--- OUTSIDE RECORDS SUMMARY | 2019-07-28 07:28 | XMS REPORT ---
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
--- OUTSIDE RECORDS SUMMARY | 2019-07-28 07:28 | XMS REPORT | Summary of Care ---
:1975 Author Organization [facility] Address [address] [place] [address] Care Team Providers Name Role Phone Сергей Dailey Sohail Primary Care Provider Reason for Visit Reason Comments ABO Verification Encounter Details Date Type Department Care Team Description 07/10/2019 Case Management [facility] Iza ABO Verification Transplant-[place] MD [facility] [address] [place] [address], [place] [address] [phone] Allergies No Known Allergiesdocumented as of this [...] 24 hr mouth 3 (three) times daily. jesmxsap-xapq-LC-calcium-mins 9 Take 1 tablet by 0 Active [...] on filedocumented in this encounter Progress Notes Nadya Castro RN - 07/10/2019 11:51 AM CDT TRANSPLANT ABO VERIFICATION PRIOR TO LISTING Name: Stuart Lynch : 1975 #: [id number] SSN: [id number] ABO SOURCE #1 & #2 Results for STUART LYNCH ( ) 06/21/2019 09:44 06/21/2019 09:54 ABO & RH O POSITIVE O POSITIVE Electronic signature on this document attests to the verification of source documentation for accuracy of the results identified above. Blanka Lucero RN - 07/10/2019 11:51 AM CDT TRANSPLANT ABO VERIFICATION PRIOR TO LISTING Name: Stuart Lynch : 75 #: [id number] SSN: [id number] ABO SOURCE #1 & 2 Results for [...] Type Group BCBS OF HIM BCBS BLUE [id number] 2019-Thelma [phone]MO [facility] t 7 [phone] [place] [address] documented as of this encounter
--- OUTSIDE RECORDS SUMMARY | 2019-07-28 07:28 | XMS REPORT | Summary of Care ---
:1975 Author Organization [facility] Address [address] [place] [address] Care Team Providers Name Role Phone Dailey Сергей Sohail Primary Care Provider Reason for Visit Reason Comments Transplant Status Update Listing Encounter Details Date Type Department Care Team Description 07/10/2019 Case Management [facility] Jv Couch Transplant Status Transplant-[place] MD [facility] Update (Listing) [facility] [address] [phone] Allergies No Known Allergiesdocumented as of [...] 24 hr mouth 3 (three) times daily. pbucrltx-cyeh-PI-calcium-mins 9 Take 1 tablet by 0 Active [...] Progress Notes Blanka Wallis RN - 07/10/2019 12:21 PM CDTMr. Maria Luisa has completed requirements for listing; insurance has approved his for listing; MELD labsobtained. The patient has been listed on the [facility] wait list for liver transplant today with MELD Nascore of 24 from labs from 07/09/2019 in [facility]. Next mandatory recertification due in 30 days. Height and weight reviewed in record and verified w/ pt during our conversation and review of current pt status 06/10/2019: Height 5 ft 9 in Weight 188lb Ascites and HE also reviewed and verified w/ pt during our conversation and review of current pt status 06/10/2019: Ascites: controlled by diuretics Hepatic Encephalopathy: yes, when lactulose is not taken Karnofsky Performance Status: 80% Able to carry on normal activity; minor signs and symptoms of disease. Letter to follow documented in this encounter Plan of Treatment [...] Type Group BCBS OF HIM BCBS LIA [id number] 2019-Thelma [phone] [facility] [phone] [place] [address] documented as of this encounter
--- OUTSIDE RECORDS SUMMARY | 2019-07-28 07:28 | XMS REPORT | Summary of Care ---
:1975 Author Organization [facility] - Health Address [address] [place] [address] Care Team Providers Name Role Phone Сергей Dailey Sohail Primary Care Provider Reason for Visit Transplant (Routine) Status Reason Specialty Diagnoses / Referred By Referred To Procedures Contact Contact Authorized Transplant Surgery Diagnoses ESRD Tissue Antigen Procedures KIDNEY TRANSPLANT Lab Reg [address] [place] [phone] Encounter Details Date Type Department Care Team Description 07/10/2019 Hospital Encounter [facility] Tissue Antigen Lab Wu, Nic Barrett MD [address] [place] [id number] [place] [address] [phone] Allergies No Known Allergiesdocumented as of this encounter (statuses as of 07/13/2019) Medications Medication Sig Dispensed Refills Start Date [...] 24 hr mouth 3 (three) times daily. dozixjnw-smat-FU-calcium-mins 9 Take 1 tablet by 0 Active [...] as of this encounter (statuses as of 07/13/2019) Active Problems Problem Noted Date Hepatic encephalopathy [...] as of this encounter (statuses as of 07/13/2019) Immunizations Name Administration Dates Next Due HEP [...] Treatment Date Type Specialty Care Team Description 08/28/2019 Appointment Cardiac Trimming Cutter Provider, Clc Cardiac 2, Clc Cardiac Proc Room Health Maintenance Due Date Last Done Comments DTaP,Tdap,and Td Vaccines (1 - Tdap) 1986 PNEUMOCOCCAL 0-64 YEARS COMBINED SERIES (2 01/16/2019 11/21/2018 of 3 - PPSV23) INFLUENZA VACCINE Completed 12/23/2018, 01/22/2018 documented as of this encounter Results Not on filedocumented in this encounter Insurance Payer Benefit Plan / Subscriber ID Effective Dates Phone Address Type Group BCBS OF HIM BCBS BLUE [id number] 2019-Thelma [phone] [address] [facility] [phone] [place] [address] documented as of this encounter
--- OUTSIDE RECORDS SUMMARY | 2019-07-28 07:31 | XMS REPORT | Summary of Care ---
:1975 Author Organization [facility] - Health Address [address] [place] [address] Care Team Providers Name Role Phone Сергей Dailey Sohail Primary Care Provider Reason for Visit Reason Comments Transition Of Care Encounter Details Date Type Department Care Team Description 07/16/2019 Transition of Care [facility] Jesenia Vang, [facility]- RN [address] [phone] Allergies No Known Allergiesdocumented as of this encounter (statuses as of 07/16/2019) Medications Medication Sig Dispensed Refills Start Date [...] 24 hr mouth 3 (three) times daily. ksfqryfz-frhl-HV-calcium-mins 9 Take 1 tablet by 0 Active [...] as of this encounter (statuses as of 07/16/2019) Active Problems Problem Noted Date Melena 07/15/2019 Hepatic encephalopathy 07/04/2019 Spontaneous bacterial peritonitis 05/12/2019 [...] as of this encounter (statuses as of 07/16/2019) Immunizations Name Administration Dates Next Due HEP [...] Specialty Care Team Description 08/28/2019 Appointment Cardiac Grout Machine Operator Provider, Clc Cardiac 2, Clc Cardiac Proc [...] Type Group BCBS OF HIM BCBS BLUE [id number] 2019-Thelma [phone] [facility] t [phone] [place] [address] documented as of this encounter
--- OUTSIDE RECORDS SUMMARY | 2019-07-28 07:31 | XMS REPORT | Summary of Care ---
:1975 Author Organization [facility] - Health Address [address] [place] [address] Care Team Providers Name Role Phone Сергей Dailey Sohail Primary Care Provider Encounter Details Date Type Department Care Team Description 07/16/2019 Orders Only [facility] Doctor Unassigned, No [address] [facility] [place] [address] [address] [place] [address] Allergies No Known Allergiesdocumented as of this [...] 24 hr mouth 3 (three) times daily. amewqcoz-ites-KK-calcium-mins 9 Take 1 tablet by 0 Active [...] Specialty Care Team Description 08/28/2019 Appointment Cardiac Customer Service Cashier Provider, Clc Cardiac 2, Clc Cardiac Proc Room Health Maintenance Due Date Last Done Comments DTaP,Tdap,and Td Vaccines (1 - Tdap) 1986 PNEUMOCOCCAL 0-64 YEARS COMBINED SERIES (2 01/16/2019 11/21/2018 of 3 - PPSV23) INFLUENZA VACCINE Completed 12/23/2018, 01/22/2018 documented as of this encounter Procedures Procedure Name Priority Date/Time Associated Diagnosis Comments CONSENT/REFUSAL FOR Routine 07/16/2019 2:20 AM CDT DIAGNOSIS AND TREATMENT documented in this encounter Results Not on filedocumented in this encounter Insurance Payer Benefit Plan / Subscriber ID Effective Dates Phone Address Type Group BCBS OF HIM BCBS BLUE [id number] 2019-Thelma [phone] [facility] t [phone] [place] [address] documented as of this encounter
--- OUTSIDE RECORDS SUMMARY | 2019-07-28 07:31 | XMS REPORT | Summary of Care ---
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 Product Code [id number] LAB Comment: Performed at [facility] Laboratory Services - [facility] Blood Bank [address] [place] [address] Toll Free: [phone] CLIA No. [id number] Specimen Performing Organization Address [facility]/Zipcode Phone Number [facility] Lactic Acid Whole Blood (07/15/2019 9:06 AM CDT) LACTIC ACID 1.47 0.50 - 2.20 mmol/L [facility] Specimen Blood - VENOUS Performing Organization Address [facility] Phone Number [facility] CLIA: [id number], [address] [place] [address] [phone] [facility] PROFILE / HEMOGRAM (07/15/2019 6:49 AM CDT) WBC 4.57 4.20 - 10.70 [facility] 10*3/L SERVICES RBC 2.00 (L) 4.26 - 5.52 [facility] 10*6/L SERVICES HGB 6.7 (L) 12.2 - 16.4 [facility] g/dL SERVICES HCT 19.4 (L) 38.4 - 49.3 % [facility] MCH 33.5 (H) 26.1 - 32.7 pg [facility] MCV 97.0 (H) 81.7 - 95.6 fL [facility] MCHC 34.5 31.2 - 35.0 [facility] g/dL SERVICES PLT 61 (L) 150 - 328 [facility] 10*3/L SERVICES MPV 10.1 9.8 - 13.0 fL [facility] RDW-CV 19.9 (H) 12.1 - 15.4 % [facility] RDW-SD 69.5 (H) 38.5 - 51.6 fL [facility] NRBC x10^3 <0.01 10*3/L [facility] NRBC/100 WBC 0.0 0.0 - 10.0 [facility] /100 WBCs SERVICES IPF % 2.1Comment: Platelet 1.2 - 10.7 % [facility] count measured by SERVICES fluorescence method. Specimen Blood - VENOUS Performing Organization Address [facility] Cent[facility]ode Phone Number [facility] CLIA: [id number], [address] [place] [address] [facility] FIBRINOGEN (07/15/2019 6:49 AM CDT) Fibrinogen 84 (LL) 167 - 453 mg/dL [facility] Specimen Blood - VENOUS Performing Organization Address [facility] Centercode Phone Number [facility] CLIA: [id number], [address] [place] [address] [facility] XR ANKLE <3 VW RIGHT (07/15/2019 4:17 AM CDT) Specimen Impressions Performed At PACS/VR/DOSE Soft tissue swelling. No acute bony abnormality is present. Narrative Performed At EXAM: PACS/VR/DOSE XR ANKLE <3 VW RIGHT HISTORY: swelling COMPARISON: None FINDINGS: Imaging of the right ankle demonstrates mild soft tissue swelling with swelling of the pre-Achilles fat. Minimal tibial talar osteophytosis is seen anteriorly. There is no acute bony abnormality. Chronic posttraumatic remodeling is seen about the medial wall of the talar body and the bony margins of the lateral clear space. Procedure Note [facility], Radiant Results Inft User - 07/15/2019 5:57 AM CDT EXAM: XR ANKLE <3 VW RIGHT HISTORY: swelling COMPARISON: None FINDINGS: Imaging of the right ankle demonstrates mild soft tissue swelling with swelling of the pre-Achilles fat. Minimal tibial talar osteophytosis is seen anteriorly. There is no acute bony abnormality. Chronic posttraumatic remodeling is seen about the medial wall of the talar body and the bony margins of the lateral clear space. IMPRESSION Soft tissue swelling. No acute bony abnormality is present. Performing Organization Address [facility] Cent[facility]ode Phone Number PACS/VR/DOSE MRSA / MSSA Screen by PCR, Nares (07/15/2019 4:09 AM CDT) MRSA Screen by PCR, Negative Negative [facility] Nares SERVICES MSSA Screen by PCR, Negative Negative [facility] Nares SERVICES MRSA/MSSA Positive? No No [facility] Specimen Swab - NARES, BOTH SIDES Performing Organization Address [facility]/Zipcode Phone Number [facility] CLIA: [id number], [address] [place] [address] [facility] Type and Screen - ONCE STAT (07/15/2019 4:08 AM CDT) Pathologist [facility] [place] ABO & RH O POSITIVE LAB Comment: Performed at [facility] Laboratory Services - [facility] Blood [place] [address] Toll Free: [phone] CLIA No. [id number] IAT Negative LAB Comment: Performed at [facility] Laboratory Services - [facility] Blood [place] [address] Toll Free: [phone] CLIA No. [id number] Specimen VENOUS Performing Organization Address City/State/Zipcode Phone Number [facility] aPTT (07/14/2019 11:59 PM CDT) Pathologist [facility] [place] APTT Patient 49 (H) 26 - 36 Seconds [facility] Specimen Blood - VENOUS Performing Organization Address City/State/Zipcode Phone Number [facility] CLIA: [id number], [address] [place] [address] [facility] [address] Prothrombin Time (PT) / INR (07/14/2019 11:59 PM CDT) Pathologist [facility] [place] PROTIME PATIENT 28.2 (H) 10.1 - 12.6 [facility] Seconds [facility] INR 2.5Comment: Normal [facility] INR <1.1; Warfarin [facility] Therapeutic range [facility] 2.0 to 3.0 or 2.5 to 3.5, depending upon the indications. Specimen Blood - VENOUS Performing Organization Address City/State/Zipcode Phone Number [facility] CLIA: [id number], [address] [place] [address] [facility] [address] URINALYSIS (07/14/2019 11:39 PM CDT) APPEARANCE Clear Clear [facility] COLOR Dark Yellow (A) Yellow [facility] PH 7.0 4.8 - 8.0 [facility] SP GRAVITY 1.019 1.003 - 1.030 [facility] GLU U QUAL 50 mg/dL (A) Normal [facility] BLOOD Negative Negative [facility] KETONES Negative Negative [facility] PROTEIN Negative Negative [facility] UROBILIN 2.0 mg/dL (A) Normal [facility] BILIRUBIN Negative Negative [facility] NITRITE Negative Negative [facility] LEUK [place] Negative Negative [facility] RBC/HPF 2 0 - 3 HPF [facility] WBC/HPF 1 0 - 5 HPF [facility] BACTERIA Negative Negative [facility] HYAL CAST 4 (H) <=2 LPF [facility] Specimen Urine - URINE, CLEAN CATCH Performing Organization Address [facility] Centercode Phone Number [facility] CLIA: [id number], [address] [place] [address] [facility] [address] Gamma Glutamyl Transferase (07/14/2019 11:35 PM CDT) GGT 64 (H) 13 - 58 U/L [facility] Specimen Blood - ARM, LEFT Performing Organization Address City/[facility]/Zipcode Phone Number [facility] CLIA: [id number], [address] [place], [place] [address] [facility] CBC WITH DIFFERENTIAL (07/14/2019 11:35 PM CDT) WBC 5.11 4.20 - 10.70 [facility] 10*3/L [facility] RBC 2.29 (L) 4.26 - 5.52 [facility] 10*6/L [facility] HGB 7.7 (L) 12.2 - 16.4 [facility] g/dL [facility] HCT 22.9 (L) 38.4 - 49.3 % [facility] MCV 100.0 (H) 81.7 - 95.6 [facility] fL [facility] MCH 33.6 (H) 26.1 - 32.7 [facility] pg [facility] MCHC 33.6 31.2 - 35.0 [facility] g/dL [facility] RDW-SD 72.6 (H) 38.5 - 51.6 [facility] fL [facility] RDW-CV 20.1 (H) 12.1 - 15.4 % [facility] PLT 73 (L) 150 - 328 [facility] 10*3/L [facility] MPV 9.0 (L) 9.8 - 13.0 fL [facility] IPF % 1.6Comment: Platelet 1.2 - 10.7 % [facility] count measured by [facility] fluorescence method. [facility] NRBC/100 WBC 0.0 0.0 - 10.0 [facility] /100 WBCs [facility] NRBC x10^3 <0.01 10*3/L [facility] GRAN MAT (NEUT) % 55.2 % [facility] IMM GRAN % 0.40 % [facility] LYMPH % 24.3 % [facility] MONO % 16.0 % [facility] EOS % 3.5 % [facility] BASO % 0.6 % [facility] GRAN MAT 2.82 1.99 - 6.95 [facility] x10^3(ANC) 10*3/uL [facility] IMM GRAN x10^3 <0.03 0.00 - 0.06 [facility] 10*3/uL [facility] LYMPH x10^3 1.24 1.09 - 3.23 [facility] 10*3/uL [facility] MONO x10^3 0.82 0.36 - 1.02 [facility] 10*3/uL [facility] EOS x10^3 0.18 0.06 - 0.53 [facility] 10*3/uL [facility] BASO x10^3 0.03 0.01 - 0.09 [facility] 10*3/uL [facility] Specimen Blood - ARM, LEFT Performing Organization Address City/State/Zipcode Phone Number [facility] CLIA: [id number], [address] [place] [id number] [facility] [address] LIPASE (07/14/2019 11:35 PM CDT) LIPASE 75 0 - 220 U/L [facility] Specimen Blood - ARM, LEFT Performing Organization Address City/State/Zipcode Phone Number [facility] CLIA: [id number], [address] [place] [address] [facility] [address] AMYLASE (07/14/2019 11:35 PM CDT) FREEMAN 56 35 - 110 U/L [facility] Specimen Blood - ARM, LEFT Performing Organization Address City/State/Zipcode Phone Number [facility] CLIA: [id number], [address] [place], [place] [address] [facility] [address] COMP. METABOLIC PANEL (89763) (07/14/2019 11:35 PM CDT) NA 138 135 - 145 [facility] mmol/L [facility] K 4.9 3.5 - 5.0 [facility] mmol/L [facility] CL 103 98 - 108 mmol/L [facility] CO2 TOTAL 27 23 - 31 mmol/L [facility] AGAP 8 2 - 16 [facility] BUN 16 7 - 23 mg/dL [facility] GLUCOSE 193 (H) 70 - 110 mg/dL [facility] CREATININE 0.77 0.60 - 1.25 [facility] mg/dL [facility] TOTAL BILI 3.9 (H) 0.1 - 1.1 mg/dL [facility] CALCIUM 8.8 8.6 - 10.6 [facility] mg/dL [facility] T PROTEIN 7.6 6.3 - 8.2 g/dL [facility] ALBUMIN 2.7 (L) 3.5 - 5.0 g/dL [facility] ALK PHOS 298 (H) 34 - 122 U/L [facility] ALTv 51 (H) 5 - 50 U/L [facility] AST(SGOT) 71 (H) 13 - 40 U/L [facility] eGFR Calculation 109.8 mL/min/1.73m2 [facility] ([facility] eGFR Calculation 133.0 mL/min/1.73m2 [facility] () [facility] Specimen Blood - ARM, LEFT Narrative Performed [...] abnormalities in imaging tests). Performing Organization Address City/[facility]/Zipcode Phone Number [facility] CLIA: [id number], [address] [place], [place] [address] [facility] AMMONIA, PLASMA (07/14/2019 11:35 PM CDT) AMMONIA 59 (H) 9 - 33 umol/L [facility] Specimen Blood - ARM, LEFT Performing Organization Address [facility]/Zipcode Phone Number [facility] CLIA: [id number], [address] [place] [address] [facility] documented in this encounter Visit Diagnoses Diagnosis Melena - Primary Blood in stool Confused Unspecified psychosis Generalized abdominal pain Abdominal pain, generalized Gastrointestinal hemorrhage with melena Chronic pain of left ankle History of spontaneous bacterial peritonitis Personal history of other infectious and parasitic disease Chronic liver failure without hepatic coma documented in this encounter Administered Medications Medication Order MAR Action Action Date Dose Rate Site cefTRIAXone (ROCEPHIN) 1,000 mg in NaCl 0.9% (NS) 50 mL MINI-BAG 1,000 mg, IV Piggyback, Q24H ABX, First dose on Mon07/16/19 at 0000, Until Discontinued, 50 mL, Reason for Anti-Infective: Empiric Therapy for Suspected Infection, Empiric Therapy Site: Abdominal, Duration of therapy: 7 days ergocalciferol (vitamin d2) Given 07/15/2019 8:50 AM CDT 50,000 Units (CALCIFEROL) capsule 50,000 Units 50,000 Units, Oral, QWEEKLY, First dose on Mon07/15/19 at 0900, Until Discontinued, Routine escitalopram oxalate (LEXAPRO) tablet 20 mg Given 07/15/2019 8:50 AM CDT 20 mg 20 mg, Oral, DAILY, First dose on Mon07/15/19 at 0900, Until Discontinued, Routine foLIC acid (FOLATE) tablet 1 mg Given 07/15/2019 8:50 AM CDT 1 mg 1 mg, Oral, DAILY, First dose on Mon07/15/19 at 0900, Until Discontinued gabapentin (NEURONTIN) tablet 600 mg Given 07/15/2019 3:42 PM CDT 600 mg 600 mg, Oral, TID, First dose on Mon07/15/19 at 0800, Until Discontinued, Routine Given 07/15/2019 8:50 AM CDT 600 mg HYDROcodone-acetaminophen (NORCO) 10-325 Given 07/15/2019 4:17 AM CDT 1 tablet mg tablet 1 tablet 1 tablet, Oral, Q6HPRN, Starting Mon07/15/19 at 0407, Until Discontinued, Routine, Pain (scale 7-10) lactulose (CEPHULAC) solution 30 mL Given 07/15/2019 8:50 AM CDT 30 mL 30 mL, Oral, BID, First dose on Mon07/15/19 at 0800, Until Discontinued, Routine gpqhetuk-bjbd-LL-calcium-mins (THERA-M) 9 Given 07/15/2019 8:50 AM CDT 1 tablet mg iron-400 mcg tablet 1 tablet 1 tablet, Oral, DAILY, First dose on Mon07/15/19 at 0900, Until Discontinued, Routine octreotide (SANDOSTATIN) 1,250 New Bag 07/15/2019 4:22 AM CDT 50 mcg/hr 10 mL/hr mcg in NaCl 0.9% (NS) infusion 50 mcg/hr (10 mL/hr), IV Infusion, CONTINUOUS, Starting Mon07/15/19 at 0445, Until 07/20/19 at 0444 pantoprazole (PROTONIX) 80 mg in New Bag 07/15/2019 1:09 PM CDT 8 mg/hr 50 mL/hr NaCl 0.9% (NS) 500 mL infusion 8 mg/hr (50 mL/hr), IV Piggyback, CONTINUOUS, Starting Mon07/15/19 at 0345, Until Discontinued, 500 mL phytonadione (VITAMIN K) 10 mg in NaCl 0.9% Given 07/15/2019 9:59 AM CDT 10 mg (NS) piggyback 10 mg, IV Piggyback, DAILY, 3 doses, First dose on Mon07/15/19 at 0900, Last dose on Mon07/17/19 at 0900, 50 mL rifAXIMin (XIFAXAN) tablet 550 mg Given 07/15/2019 8:50 AM CDT 550 mg 550 mg, Oral, BID, First dose on Mon07/15/19 at 0800, Until Discontinued, Routine, Reason for Anti-Infective: Empiric Non-Surgical Prophylaxis, Duration of therapy: 7 days thiamine (VITAMIN B1) tablet 100 mg Given 07/15/2019 8:50 AM CDT 100 mg 100 mg, Oral, DAILY, First dose on Mon07/15/19 at 0900, Until Discontinued zinc sulfate (ORAZINC) capsule 220 mg Given 07/15/2019 8:50 AM CDT 220 mg 220 mg, Oral, DAILY, First dose on Mon07/15/19 at 0900, Until Discontinued Medication Order MAR Action Action Date Dose Rate Site cefTRIAXone (ROCEPHIN) 1,000 mg Given 07/15/2019 12:55 AM CDT 1,000 mg in NaCl 0.9% (NS) 50 mL MINI-BAG 1,000 mg, IV Piggyback, ONCE, 1 dose, Mon07/15/19 at 0130, 50 mL, Reason for Anti-Infective: Empiric Non-Surgical Prophylaxis, Duration of therapy: 7 days lactated ringers IV infusion New Bag 07/15/2019 5:24 AM CDT 1,000 mL 125 mL/hr 1,000 mL at 125 mL/hr, 1,000 mL, IV Infusion, CONTINUOUS, Starting 07/15/19 at 0630, Until Mon07/15/19 at 0630, Routine octreotide (SANDOSTATIN) Dose/Rate Verify 07/15/2019 3:10 AM 50 mcg/hr 5 mL/hr 500 mcg in NaCl 0.9% (NS) CDT infusion 50 mcg/hr (5 mL/hr), IV Infusion, CONTINUOUS, Starting 07/15/19 at 0115, Until Mon07/15/19 at 1334 New Bag 07/15/2019 1:15 AM CDT 50 mcg/hr 5 mL/hr octreotide (SANDOSTATIN) injection 50 mcg Given 07/15/2019 12:12 AM CDT 50 mcg 50 mcg, Slow IV Push, ONCE, 1 dose, Mon07/15/19 at 0100, STAT octreotide (SANDOSTATIN) injection 50 mcg Given 07/15/2019 5:46 AM CDT 50 mcg 50 mcg, IV Push, ONCE, 1 dose, Mon07/15/19 at 0445, Routine pantoprazole (PROTONIX) 80 mg in NaCl 0.9% Given 07/15/2019 5:52 AM CDT 80 mg (NS) 20 mL syringe 80 mg, IV Push, ONCE, 1 dose, Mon07/15/19 at 0345, 20 mL pantoprazole (PROTONIX) 80 Dose/Rate Verify 07/15/2019 3:10 AM CDT 8 mg/hr 50 mL/hr mg in NaCl 0.9% (NS) 500 mL infusion 8 mg/hr (50 mL/hr), IV Piggyback, CONTINUOUS, Starting Mon07/15/19 at 0130, Until Mon07/15/19 at 1334, 500 mL New Bag 07/15/2019 1:43 AM CDT 8 mg/hr 50 mL/hr documented in this encounter Insurance Payer Benefit Plan / Subscriber ID Effective Dates Phone Address Type Group BCBS OF HIM BCBS BLUE [id number] 2019-Thelma [phone] [address] [employer] [place] [employer] [id number] [place] [address] documented as of this encounter
--- OUTSIDE RECORDS SUMMARY | 2019-07-28 07:32 | XMS REPORT | Summary of Care ---
:1975 Author Organization [facility] Address [address] [place] [address] Care Team Providers Name Role Phone Сергей Dailey Sohail Primary Care Provider Reason for Visit Reason Comments Other elopement Encounter Details Date Type Department Care Team Description 07/16/2019 Case Management [facility] [place], Other (elopement) Transplant-[place] [facility] [address] [place] [phone] Allergies No Known Allergiesdocumented as of this [...] 24 hr mouth 3 (three) times daily. uowhsawf-cghi-GY-calcium-mins 9 Take 1 tablet by 0 Active [...] encounter Progress Notes Blanka Wallis RN - 07/16/2019 7:25 PM CDTPatient's called on my personal cell phone and stated [place] and she was trying to catch up with him to bring him to the ER again. Patient has had altered mental status and is not making good decisions. Attempted to call ER charge nurse with no answer. Called [facility] Tatyana to notify that patient had eloped and may be in danger running down the [place]. She suggested I call the police and stated it is not the responsibility of the ER to make him stay. She stated she would call Alexis Gibson. documented in this encounter Plan of Treatment Date Type Specialty Care Team Description 08/28/2019 Appointment Cardiac Certified Hand Therapist Provider, [facility], [facility] Cardiac Proc Room Health [...] Phone Address Type Group BCBS OF HIM MARIAELENA FITZGERALD [id number] 2019-Thelma [phone] [facility] [id number] [place] [address] documented as of this encounter
--- OUTSIDE RECORDS SUMMARY | 2019-07-28 07:32 | XMS REPORT | Summary of Care ---
:1975 Author Organization [facility] Health Address [address] [place] [address] Care Team Providers Name Role Phone Mian Daileyeesh Sohail Primary Care Provider Reason for Visit Reason Comments Abdominal Pain Auth/Cert Status Reason Specialty Diagnoses / Referred By Referred To Procedures Contact Contact Emergency Medicine Ed-Emergency Dept [address] [place] [phone] Encounter Details Date Type Department Care Team Description 07/16/2019 Emergency [facility] Davide Robbins, Abdominal pain, [address] [place] [address] location (Primary Dx) [place], [place] [phone] [place], [place] [phone] Allergies No Known Allergiesdocumented as of this [...] 24 hr mouth 3 (three) times daily. okjzpuba-iudz-BN-calcium-mins 9 Take 1 tablet by 0 Active [...] Sign Reading Time Taken Comments Blood Pressure 105/57 07/16/2019 5:32 PM CDT Pulse 63 07/16/2019 5:32 PM CDT Temperature 36.6 C (97.9 F) 07/16/2019 5:32 PM CDT Respiratory Rate 18 07/16/2019 5:32 PM CDT Oxygen Saturation 98% 07/16/2019 5:11 PM CDT Inhaled Oxygen Concentration - - Weight 86.2 kg (190 lb 0.5 oz) 07/16/2019 5:11 PM CDT Height - - Body Mass Index 28.06 07/14/2019 11:22 PM CDT documented in this encounter Plan of Treatment Date Type Specialty Care Team Description 08/28/2019 Appointment Cardiac Screen Door Maker Provider, Clc Cardiac 2, Clc Cardiac Proc Room Name Type Priority Associated Diagnoses Date/Time CBC with Differential LAB Routine Abdominal pain, 07/16/2019 6:44 PM unspecified abdominal CDT location Basic Metabolic Panel LAB STAT Abdominal pain, 07/16/2019 6:44 PM (NA, K, CL, CO2, GLUCOSE, unspecified abdominal CDT BUN, CREATININE, CA) location Hepatic Function Panel LAB STAT Abdominal pain, 07/16/2019 6:44 PM (ALB, T.PRO, BILI T, unspecified abdominal CDT BU/BC, ALT, AST, ALK location PHOS) Lipase Serum LAB STAT Abdominal pain, 07/16/2019 6:44 PM unspecified abdominal CDT location Prothrombin Time (PT) / LAB STAT Abdominal pain, 07/16/2019 6:44 PM INR unspecified abdominal CDT location aPTT LAB STAT Abdominal pain, 07/16/2019 6:44 PM unspecified abdominal CDT location AMMONIA, PLASMA LAB STAT Abdominal pain, 07/16/2019 6:44 PM unspecified abdominal CDT location CBC WITH DIFFERENTIAL LAB STAT Abdominal pain, 07/16/2019 6:44 PM unspecified abdominal CDT location Name Type Priority Associated Diagnoses Order Schedule CBC with Differential LAB Routine Abdominal pain, STAT for 1 Occurrences unspecified abdominal starting 07/16/2019 location until 07/16/2019 Basic Metabolic Panel LAB STAT Abdominal pain, STAT for 1 Occurrences (NA, K, CL, CO2, GLUCOSE, unspecified abdominal starting 07/16/2019 BUN, CREATININE, CA) location until 07/16/2019 Hepatic Function Panel LAB STAT Abdominal pain, STAT for 1 Occurrences (ALB, T.PRO, BILI T, unspecified abdominal starting 07/16/2019 BU/BC, ALT, AST, ALK location until 07/16/2019 PHOS) Lipase Serum LAB STAT Abdominal pain, STAT for 1 Occurrences unspecified abdominal starting 07/16/2019 location until 07/16/2019 Prothrombin Time (PT) / LAB STAT Abdominal pain, STAT for 1 Occurrences INR unspecified abdominal starting 07/16/2019 location until 07/16/2019 aPTT LAB Routine Abdominal pain, ONCE for 1 Occurrences unspecified abdominal starting 07/16/2019 location until 07/16/2019 Urinalysis LAB STAT Abdominal pain, STAT for 1 Occurrences unspecified abdominal starting 07/16/2019 location until 07/16/2019 AMMONIA, PLASMA LAB Routine Abdominal pain, ONCE for 1 Occurrences unspecified abdominal starting 07/16/2019 location until 07/16/2019 CBC WITH DIFFERENTIAL LAB Routine Abdominal pain, Once for 1 Occurrences unspecified abdominal starting 07/16/2019 location until 07/16/2019 Health Maintenance Due Date Last Done Comments DTaP,Tdap,and Td Vaccines (1 - Tdap) 1986 PNEUMOCOCCAL 0-64 YEARS COMBINED SERIES (2 01/16/2019 11/21/2018 of 3 - PPSV23) INFLUENZA VACCINE Completed 12/23/2018, 01/22/2018 documented as of this encounter Results Not on filedocumented in this encounter Visit Diagnoses Diagnosis Abdominal pain, unspecified abdominal location - Primary documented in this encounter Insurance Payer Benefit Plan / Subscriber ID Effective Dates Phone Address Type Group BCBS OF HIM BCBS BLUE [id number] [facility] [phone] [address] [facility] [id number] [place] [address] documented as of this encounter
--- OUTSIDE RECORDS SUMMARY | 2019-07-28 07:32 | XMS REPORT | Summary of Care ---
:1975 Author Organization [facility] [place] [facility] Address [address] [place] [address] Care Team Providers Name Role Phone DaileyСергей iniguez Sohail Primary Care Provider Reason for Visit Reason Comments Other Patient Update Encounter Details Date Type Department Care Team Description 07/16/2019 Case Management [facility] [place], Other (Patient Transplant-[place] MD Gladis Update) [facility]pecialty Ctr [facility] [address] [phone] [phone] Allergies No Known Allergiesdocumented as of this [...] 24 hr mouth 3 (three) times daily. mvlcjali-dplu-AO-calcium-mins 9 Take 1 tablet by 0 Active [...] Progress Notes Blanka Wallis RN - 07/16/2019 4:06 PM CDTPatient continues to be confused and inappropriate. His said he called the police last night when she was trying to settle him down [place]. Currently the patient is coming to the ER accompanied by his . A request has been sent up the chain and is pending for an exception to be made to allow her to stay with him. She states he is concerned about his anxiety and his lack of sleep. She states if she has to leave she is concerned he will leave [place] again. I spoke with the patient and he was slurring words and making little sense but agreed to come to thehospital. I directed them to the ER and then updated the ER nurse. I contacted Lashanda who spoke with Alexis and the decision regarding his staying with him is pending.Electronically signed by Blanka Wallis RN at 2019 4:13 PM CDTdocumented in this encounter Plan of Treatment Date Type Specialty Care Team Description 08/28/2019 Appointment Cardiac Career Developer Provider, Clc Cardiac 2, Clc Cardiac Proc [...] Type Group BCBS OF HIM BCBS LIA [id number] 2019-Thelma [phone] [address] HMO [facility] t 7 [phone] [place] [address] documented as of this encounter
--- OUTSIDE RECORDS SUMMARY | 2019-07-28 07:33 | XMS REPORT | Summary of Care ---
:1975 Author Organization [facility] Address [address] [place] [address] Care Team Providers Name Role Phone Mian Daileyeesh Sohail Primary Care Provider Reason for Visit Reason Comments Social Work follow up Encounter Details Date Type Department Care Team Description 07/18/2019 Telephone [facility] Transplant- Chantelle Vines Social Work (follow [facility] up) Multispecialty Ctr [address] [place] [address] [phone] Allergies No Known Allergiesdocumented as of this encounter (statuses as of 07/18/2019) Medications Medication Sig Dispensed Refills Start Date [...] 24 hr mouth 3 (three) times daily. xwfipxiw-ftxc-OD-calcium-mins 9 Take 1 tablet by 0 Active [...] as of this encounter (statuses as of 07/18/2019) Active Problems Problem Noted Date Melena 07/15/2019 [...] as of this encounter (statuses as of 07/18/2019) Immunizations Name Administration Dates Next Due HEP [...] Treatment Date Type Specialty Care Team Description 07/19/2019 Appointment Radiology Gladis Couch MD [address] [place], [place] [id number] 08/28/2019 Appointment Cardiac Propulsion Generator Repairer Provider, Shell Cardiac 2, Clc Cardiac Proc [...] Type Group BCBS OF HIM BCBS BLUE [id number] 2019-Thelma [phone] [address] HMO [facility] t [address] [phone] [place] [address] documented as of this encounter
--- OUTSIDE RECORDS SUMMARY | 2019-07-28 07:33 | XMS REPORT | Summary of Care ---
:1975 Author Organization [facility] Address [address] [place] [address] Care Team Providers Name Role Phone DaileyСергей iniguez Sohail Primary Care Provider Reason for Visit Reason Comments Other behavior issues Encounter Details Date Type Department Care Team Description 07/18/2019 Case Management [facility] [place], Other (behavior Transplant-[place] MD Gladis issues) Multispecialty Ctr [address] [place] [phone] Allergies No Known Allergiesdocumented as of this [...] 24 hr mouth 3 (three) times daily. qwxmzwmo-zyyr-GK-calcium-mins 9 Take 1 tablet by 0 Active [...] encounter Progress Notes Blanka Wallis RN - 07/18/2019 9:04 AM ERLINTStuart's mom called and stated that Stuart is making poor decisions again and bought a car yesterday. He had just bought a car. His was unable to convince the dealership not to sell it to him. I called Dr. Gladis Couch. The family thinks Stuart will go to [place] but Dr. Couch says the [facility] will not be there to support him there. Dr. Couch is going to attempt to call Stuart. I provided the mental health deputy numbers for [place] and [place] for his family. documented in this encounter Plan of Treatment Date Type Specialty Care Team Description 07/19/2019 Appointment Radiology Gladis Couch MD [address] [place] [address] [phone] 08/28/2019 Appointment Cardiac Executive Administrative Assistant Provider, Clc Cardiac 2, Clc Cardiac Proc [...] Type Group BCBS OF HIM BCBS BLUE [id number] 2019-Thelma [phone] [address] B[address] [facility]MO [facility] [phone] [place] [address] documented as of this encounter
--- OUTSIDE RECORDS SUMMARY | 2019-07-28 07:33 | XMS REPORT | Summary of Care ---
:1975 Author Organization [facility] Address [address] [place] [address] Care Team Providers Name Role Phone Asim Сергей Sauceda Primary Care Provider Reason for Visit Reason Comments Appointment Listed liver txpl Encounter Details Date Type Department Care Team Description 07/17/2019 Telephone [facility] Transplant- Gladis Couch, Appointment (Listed [place] liver txpl ) Multispecialty [address] [address] [phone] Allergies No Known Allergiesdocumented as of this encounter (statuses as of 07/17/2019) Medications Medication Sig Dispensed Refills Start Date [...] 24 hr mouth 3 (three) times daily. suochitb-kdfy-IW-calcium-mins 9 Take 1 tablet by 0 Active [...] as of this encounter (statuses as of 07/17/2019) Active Problems Problem Noted Date Melena 07/15/2019 [...] as of this encounter (statuses as of 07/17/2019) Immunizations Name Administration Dates Next Due HEP [...] Description 07/19/2019 Appointment Radiology Gladis Couch MD [address] [place], [place] [phone] 08/28/2019 Appointment Cardiac Rn Maternity Provider, Clc Cardiac 2, Clc Cardiac Proc [...] Type Group BCBS OF HIM BCBS BLUE [id number] 2019-Thelma [phone] [address] HMO [facility] t 7 [phone] [place] [address] documented as of this encounter
--- OUTSIDE RECORDS SUMMARY | 2019-07-28 07:33 | XMS REPORT | Summary of Care ---
:1975 Author Organization [facility] Address [address] [place] [address] Care Team Providers Name Role Phone Asim Сергей Sauceda Primary Care Provider Reason for Visit Reason Comments Appointment Listed liver txpl Encounter Details Date Type Department Care Team Description 07/17/2019 Telephone [facility] Transplant- Gladis Couch, Appointment (Listed [place] liver txpl ) Multispecialty [address] [address] [phone] Allergies No Known Allergiesdocumented as of this [...] 24 hr mouth 3 (three) times daily. wbelmssj-vnua-XO-calcium-mins 9 Take 1 tablet by 0 Active [...] Description 07/19/2019 Appointment Radiology Gladis Couch MD [address] [place], [place] [phone] 08/28/2019 Appointment Cardiac Residence Counselor Provider, Clc Cardiac 2, Clc Cardiac Proc [...] Type Group BCBS OF HIM BCBS BLUE [id number] 2019-Thelma [phone] [address] HMO [facility] t 7 [phone] [place] [address] documented as of this encounter
--- OUTSIDE RECORDS SUMMARY | 2019-07-28 07:34 | XMS REPORT | Summary of Care ---
:1975 Author Organization [facility] Address [address] [place] [address] Care Team Providers Name Role Phone Mian Daileyeesh Sohail Primary Care Provider Reason for Visit Reason Comments Social Work follow up Encounter Details Date Type Department Care Team Description 07/18/2019 Telephone [facility] Transplant- Chantelle Vines Social Work (follow [facility], [facility] up) Multispecialty Ctr [address] [place] [phone] Allergies No Known Allergiesdocumented as of [...] 24 hr mouth 3 (three) times daily. qndlyepn-hith-[place]-calcium-mins 9 Take 1 tablet by 0 Active [...] Description 07/19/2019 Appointment Radiology Gladis Couch MD [address] [place], [place] 659613 08/28/2019 Appointment Cardiac Blanket Inspector Provider, Shell Cardiac 2, Clc Cardiac Proc [...] Type Group BCBS OF HIM BCBS BLUE [id number] 2019-Thelma [phone] [address] HMO [facility] t [address] [phone] [place] [address] documented as of this encounter
--- OUTSIDE RECORDS SUMMARY | 2019-07-28 07:36 | XMS REPORT | Summary of Care ---
:1975 Author Organization [facility] - [facility] Address [address] [place] [id number] Care Team Providers Name Role Phone Сергей Dailey Sohail Primary Care Provider Reason for Referral (Routine) Status Reason Specialty Diagnoses / Referred By Referred To Contact Procedures Contact New Request Diagnoses Liver transplant candidate Jose Dawson Jonathan Procedures Discharge Follow-up: PCP CHRISTINE MELLO; 1 Week MD Jeff Welch MD [address] [place] [address]. [place] [phone] Phone: (Routine) Status Reason Specialty Diagnoses / Referred By Referred To Procedures Contact Contact New Request IM-GASTROENTEROLO Diagnoses Liver transplant candidate Jose Dawson GY Procedures Discharge Follow-Up: Specialty Service IM-GASTROENTEROLOGY; 4-6 Weeks MD Yuri [address] [place] [address] Radiology Services (Routine) Status Reason Specialty Diagnoses / Referred By Referred To Procedures Contact Contact New Request Diagnostic Diagnoses Altered mental status, unspecified altered mental status type Samir, Alondra Procedures XR CHEST 1 VW Jose Welch MD [address] [place] [address] Radiology Services (Routine) Status Reason Specialty Diagnoses / Referred By Referred To Procedures Contact Contact New Request Diagnostic Diagnoses Altered mental status, unspecified altered mental status type Alcoholic cirrhosis of liver with ascites Samir, Radiology Procedures US ABDOMEN LIMITED WITH DOPPLER US ABDOMEN LIMITED WITH DOPPLER Jose Welch MD [address] [address] MRI/CAT Scan (STAT) Status Reason Specialty Diagnoses / Referred By Referred To Procedures Contact Contact New Request Diagnostic Diagnoses Lethargy Quinn Hall, Radiology Procedures CT HEAD WO CONTRAST 301 [facility] [id number] [place] [address] Reason for Visit Reason Comments Lethargic Altered mental status Auth/Cert Status Reason Specialty Diagnoses / Referred By Referred To Procedures Contact Contact Emergency Medicine Ed-Emergency Dept [address] [place] [phone] Encounter Details Date Type Department Care Team Description 07/18/2019 - Emergency Medicine (TUAN 10A) Juan A Hinojosa, CHARGE ENTRY CLERK [address] [place] [phone] Altered mental status 07/19/2019 2 [facility] Jose Dawson MD [address] [id number] [place] [id number] Allergies No Known Allergiesdocumented as of this encounter (statuses as of 07/19/2019) Medications Medication Sig Dispensed Refills Start Date End Date Status spironolactone 100 mg Take 1 tablet by 30 tablet 12 01/22/2019 Active tabletIndications: mouth daily. Chronic liver failure without hepatic coma Additional information Patient taking differently: 50 mg Oral BID, Reported on 04/30/2019 4:41 PM rifAXIMin (XIFAXAN) Take 550 mg by 0 Active 550 mg tablet mouth 2 (two) times daily. detrjehh-teha-BF-calci Take 1 tablet 0 Active um-mins 9 mg iron-400 by mouth daily. mcg tablet HYDROXYZINE HCL ORAL Take 50 mg by 0 Active mouth every 6 (six) hours as needed for Other (anxiety). ergocalciferol, Take 50,000 0 Active vitamin d2, (VITAMIN Units by mouth D2) 50,000 unit weekly. capsule escitalopram oxalate Take 20 mg by 0 Active (LEXAPRO) 20 mg tablet mouth daily. carisoprodol (SOMA) Take 350 mg by 0 Active 350 mg tablet mouth 4 (four) times daily as needed for Insomnia. folic acid 0.8 mg Cap Take 1 capsule 0 Active by mouth daily. sucralfate 100 mg/mL Take 10 mL by 480 mL 0 05/02/19 Active suspensionIndications: mouth as needed 20 Acute upper GI bleed (esophageal pain). furosemide 40 mg Take 1 tablet 90 tablet 0 05/17/19 Active tabletIndications: by mouth daily. 20 Common bile duct dilatation, SBP (spontaneous bacterial peritonitis) THIAMINE HCL ORAL Take by mouth. 0 Active magnesium oxide Take 400 mg by 0 Active (MAG-OXIDE ORAL) mouth 2 (two) times daily. traMADol 50 mg Take 1 tablet 12 tablet 0 07/04/19 Active tabletIndications: by mouth every 20 Generalized abdominal 6 (six) hours pain, Enteritis, as needed for Colitis Pain (scale 7-10). lactulose 10 gram/15 Take 30 mL by 500 mL 12 07/19/19 Active mL mouth 4 (four) 20 solutionIndications: times daily. Chronic liver failure without hepatic coma zinc sulfate Take 1 capsule 90 capsule 2 07/19/19 Active (ZINC-220) 220 (50) mg by mouth 3 020 capsuleIndications: (three) times Liver transplant daily for 90 candidate days. ciprofloxacin HCl 500 Take 1 tablet 30 tablet 2 07/20/19 Active mg tabletIndications: by mouth every 020 Liver transplant 24 candidate (twenty-four) hours for 90 days. Sodium Phenylbutyrate Take 500 mg by 90 tablet 1 07/19/19 Active 500 mg TabIndications: mouth 3 (three) 20 Liver transplant times daily candidate with meals. lactulose 10 gram/15 Take 30 mL by 500 mL 12 01/23/20 Discontinued mL mouth 2 (two) 19 020 (Reorder) solutionIndications: times daily. Chronic liver failure without hepatic coma gabapentin ER 300 mg Take 600 mg by 0 Discontinued tablet, extended mouth 3 (three) 020 release 24 hr times daily. zinc sulfate (ZINC-220 Take by mouth. 0 Discontinued ORAL) 020 HYDROcodone-acetaminop Take 1 tablet 0 Discontinued hen 10-325 mg tablet by mouth every 020 6 (six) hours as needed. documented as of this encounter (statuses as of 07/19/2019) Active Problems Problem Noted Date Altered mental status 07/18/2019 Melena 07/15/2019 Hepatic encephalopathy 07/04/2019 Spontaneous bacterial [...] as of this encounter (statuses as of 07/19/2019) Immunizations Name Administration Dates Next Due HEP [...] Sign Reading Time Taken Comments Blood Pressure 137/74 07/19/2019 8:07 PM CDT Pulse 85 07/19/2019 8:07 PM CDT Temperature 36.9 C (98.5 F) 07/19/2019 8:07 PM CDT Respiratory Rate 18 07/19/2019 8:07 PM CDT Oxygen Saturation 100% 07/19/2019 8:07 PM CDT Inhaled Oxygen Concentration - - Weight 84.4 kg (186 lb) 07/19/2019 12:55 PM CDT Height 175.3 cm (5' 9") 07/19/2019 12:55 PM CDT Body Mass Index 27.47 07/19/2019 12:55 PM CDT documented in this encounter Discharge Instructions AttachmentsThe following attachments cannot be sent through Care Everywhere.Ciprofloxacin tablets (French)Sodium phenylbutyrate oral tablet ( French)documented in this encounter Progress Notes Sissy Pack, OT - 07/19/2019 1:33 PM CD07/19/2019 1333 OCCUPATIONAL THERAPY NOTE: Consult received. Chart reviewed. Attempted to see patient for initial evaluation, however patient is currently in procedure. Will follow up as time permits. SAY Palumbo, [facility] Pager: [phone] License: [id number] atiChantelle hernandez AUTOMOTIVE SALES SPECIALIST - 07/19/2019 12:46 PM CDTPatient, and mother have been calling SW various times this morning, using cell instead of requested means of communication. Patient's states as SW walks in, "it must be taken care of," SW questioned what she was implying, she states, "all the nurses, charge nurse and COA(?) came in here and told me I had to leave." She states it is why she contacted SW. SW reintroduced self to patient,patient reports remembering SW. Patient is alert and oriented X4; speech normal, he wakes up as SW visits longer. SW revisited appropriate means to contact SW and provided office number. They verbalized understanding. Patient asked to talk to SW without his present. steps outside, stating "he won't tell you the whole story, only his side." Patient reports he wants his to leave, SW is surprised by this statement as patient left AMA due to her not being allowed to stay, SW questioned patient. He states, "I left because I wanted to, I wasn't being treated properly." Discussed alternate ways to get needs met beside leaving AMA. He states he will leave whenever he wants. SW discussed consequences for behavior. He verbalized understanding. He continues to talk about his , problems in relationship. States he may divorce her. Discussed communication styles, suggested he and may need toattend counseling as options. SW asked patient's to return , he again states he wants her to leave, SW educated both about making decisions at this time, consequences of behavior and again suggested counseling as their communication styles show some dysfunction. SW exits room as patient needs to use restroom. As SW enters room, patient is on phone, he is setting up a ride home after procedure. SW states, you may not be discharge today, he states, "ok." His states, "He will leave." SAMANTHA reiterated consequences to behavior. SW has several concerns about patient related to judgement, decision making capacity, erratic behavior; SAMANTHA recommends psychiatric evaluation. SAMANTHA did inform liver contract administration coordinator and both Dr. Couch. Will continue to follow. SARBJIT Balbuena, AUTOMOTIVE SALES SPECIALIST, CCTSW-[facility] Certified Clinical Transplant Guard Captain Mechanical Circulatory Support Guard Captain Liver Transplant and Living Donor Guard Captain [facility] Office: [phone] (Not for patient use) Email: [email or web address] Paras Gomez MD - 07/19/2019 10:46 AM CDT Gastroenterology Progress Note Date of Service: 07/19/2019 10:46 Chief Complaint: Hepatic Encephalopathy SUBJECTIVE/ MAJOR EVENTS: - Patient had multiple brown bowel movements. - CT Head negative. PHYSICAL EXAM: Temp: [36.4 C (97.6 F)-36.8 C (98.3 F)] Pulse: [70-86] Resp: [16-19] BP: (125-140)/(66-86) MAP (mmHg): [92-101] Intake/Output Summary (Last 24 hours) at 07/19/2019 1046 Last data filed at 07/19/2019 1021 Gross per 24 hour Intake 264 ml Output 800 ml Net -536 ml General: Patient is answering orientation questions appropriately, needs stimulation to stay awake. Cardiovascular: Regular rate and rhythm, no murmurs; no LE edema. Respiratory: Clear to auscultation bilaterally. Abdomen: Nondistended, no surgical scars, inverted umbilicus, soft, no tenderness, no masses, normalbowel sounds. Neuro: +[facility] LABS/IMAGING - reviewed. CURRENT MEDICATIONS - reviewed. ASSESSMENT/PLAN Stuart Glass is a 44 year old male with PMH as listed above, admitted to the hospital with HE, GI consulted for: Melena * Patient recently presented melena resulting in acute blood loss anemia in setting of severe coagulopathy. Bleeding is likely due to portal hypertensive gastropathy, unlikely variceal bleeding. - EGD today. Hepatic Encephalopathy Grade 2 * Patient with hepatic encephalopathy and worsening behavioral abnormalities. Per , he has been compliant with home lactulose and rifaximin. * The presence of splenorenal shunts makes encephalopathy difficult to control. Will need to rule out other precipitants of HE, mainly infection. - Please consult IR diagnostic paracentesis to rule out SBP; send fluid for cultures as well - Follow up urine culture, blood cultures, CXR - Continue Lactulose (titrate for 3-4 BMs daily) and Rifaximin 550mg po BID - Continue Zinc supplementation (600mg/day) - Sodium phenylacetate and phenylbutyrate are not available in the pharmacy. - Consult psychiatry. - RPR, TSH, B12. EtOH cirrhosis (MELD-Na 19, d/b ascites, SBP, bleeding EV s/p banding 04/2019, HE , on liver transplant list) HCC -- Ascites: Small volume ascites on exam. Hx of CNNA. On home Cipro for secondary prophylaxis - Diagnostic paracentesis by IR - IV Rocephin while inpatient for SBP ppx - Hold diuretics for now -- Varices: hx of bleeding EV 04/2019 s/p banding; last EGD 05/2019 with small distal esophageal varices. EGD today -- HCC screenin.1cm lesion in segment 8, LI-RADS M, within transplant criteria -- Immunity screening: not immune to HAV or HBV, needs vaccination series Patient was discussed with Dr. Couch. Please call with questions. GI will continue to follow. Paras Javed MD PGY-4 Gastroenterology and Hepatology Pager [phone] Sissy marmolejo OT - 07/19/2019 9:54 AM CDT3 0954 OCCUPATIONAL THERAPY NOTE: Consult received. Chart reviewed. Attempted to see patient for intial evaluation , however per nurse hold evaluation at this time due to patient receiving Cryoprecipitate and plasma infusion. Will follow up as time permits. SAY Palumbo, MOT Pager: [phone] License: [id number] Jass Buck PT - 07/19/2019 9:53 AM CDTPHYSICAL THERAPY NOTE: Consult received and chart reviewed. As per nurse to hold eval this time as patient will receive Cryoprecipitate and plasma transfusion. Will follow up later as time permits. Jass Badillo PT, DPT Pager [phone] Patrick Corado MSW - 07/19/2019 9:47 AM CDTSocial Work Note Sw spoke with Pt and for assessment. Pt states over the phone that he "needs someone to help him." After clarifying, Pt meant for an director of strategic marketing. He states his has been "helping me withmedications" but also works. Pt was vague when asked what else he needs help with at home. Samanhta provided the phone number for [facility] caregiver assistance line [phone]. Radames Perera LCSW Guard Captain [facility] [phone] signed by aPtrick Perera MSW at 07/19/2019 9:50 AM Patrick Corado MSW - 07/19/2019 9:35 AM CDTCare Management Social Functional Assessment Patient Name: Stuart Glass Age: [age] year old Sex: male Patient's Previous Admission Date at [facility]: 07/15/2019 Current diagnosis and co-morbidities: altered mental status Readmission Questions: Was patient discharged from any acute care hospital within the last 30 days: No Social Functional Assessment: Primary language spoken/preferred: French Mental Status: Alert & Oriented to Person, Place Information given by: Self;Spouse Patient's support system: Spouse Name and number of support system: Benjamin Steel, Primary All Round Butcher: Self;Spouse MPOA: Yes;Same as support system Living Arrangement: Home Address of living arrangement : [address] [place] [address] Persons living in home: Self;Spouse Barriers to returning home: None Baseline functional status- ambulation: Independent Functional status-baseline personal care: Independent Baseline functional status- driving: Independent Baseline functional status- grocery shopping: Independent Functional status-baseline housekeeping: Independent Functional status-baseline meal prep: Independent Current functional status same as prior: Yes Do you have a PCP?: Yes Name of PCP: Сергей Dailey [facility] Agency: No Provider Services: No DME Company: No Equipment: None Hemodialysis: No Funding Resources: Commercial Prescription coverage plan: Commercial Anticipated services prior to disharge: Continue Medical Eval Expected mode of discharge transportation: Personal vehicle;Same as support system Additional info required for discharge planning: Pending medical evaluation Recommended discharge plan: Home SFA Complete: Social Functional Assessment complete: Yes Alcohol Use Screening (AUDIT-C) How often do you have a drink containing alcohol?: Never SCORE: 0 o Have you or family you live with or family that is with you here in the hospital had: ? Recent history of travel to a high-risk area: no (example [place], [place]) ? Recent sick contacts before or during admission: no ? Contact with a proven COVID-19 case: no ? Symptoms: fever, dry cough, fatigue, difficulty breathing: no ? Attended recent events with a gatherings of > 10 people: no o Do you have at least 30 days of all your medications available? yes o Do you have My Chart set up? yes o Patient notified that they may be receiving a call regarding a follow-up visit after discharge. o Visitor policy was reviewed with patient/family. Role of Care Management explained. Radames Perera LCSW Guard Captain [facility] [phone] signed by Patrick Perera MSW at 07/19/2019 9:36 AM Chantelle Smith LCSW - 07/19/2019 9:06 AM CDTLate entry 07/18/2019 at 7pm Patient's called stating she wasn't allowed into patient's room; SAMANTHA contacted eligibility manager and MD. SW contacted patient's for more information, she reports she was already in his room. SW called patient's again to reiterate rules related to her being able to stay with patient. SW explained she would not be able to leave hospital/room; she verbalized understanding. SAMANTHA explainedwould not be available by phone after hours, and any other issues would need to be addressed in am.She verbalized understanding. Patient's contacted SAMANTHA at 11 pm; SAMANTHA did not answer, she did not leave a message. Plan to see patient today. SARBJIT Balbuena, CJ, CCTSW-[facility] Certified Clinical Transplant Guard Captain Mechanical Circulatory Support Guard Captain Liver Transplant and Living Donor Guard Captain [facility] Office: [phone] (Not for patient use) Email: [email or web address] documented in this encounter Plan of Treatment Date Type Specialty Care Team Description 08/28/2019 Appointment Cardiac Early Morning Babysitter Provider, Clc Cardiac 2, Clc Cardiac Proc Room Name Type Priority Associated Diagnoses Date/Time Blood Culture - LAB RUPERT 07/18/2019 10:41 PM Peripheral Vein CDT Blood Culture - LAB RUPERT 07/18/2019 10:40 PM Peripheral Vein # 2 CDT URINE CULTURE LAB Routine 07/18/2019 11:18 PM CDT URINE DRUG (LCMSMS) - LAB Routine 07/18/2019 11:18 PM SYNTHETIC OPIATES PANEL CDT URINE DRUG (LCMSMS) - LAB Routine 07/18/2019 11:18 PM OPIATES PANEL CDT Prepare Plasma (in Blood Bank Routine 07/19/2019 10:20 AM units): 2 CDT Units~Indication: Invasive Procedure ETHYLENE GLYCOL LAB Routine 07/19/2019 11:33 AM CDT Name Type Priority Associated Diagnoses Order Schedule URINE CULTURE LAB Routine ONCE for 1 Occurrences starting 07/18/2019 until 07/18/2019 URINE DRUG (LCMSMS) - LAB Routine ONCE for 1 Occurrences SYNTHETIC OPIATES PANEL starting 07/19/2019 until 07/19/2019, 1 completed URINE DRUG (LCMSMS) - LAB Routine ONCE for 1 Occurrences OPIATES PANEL starting 07/19/2019 until 07/19/2019, 1 completed FIBRINOGEN LAB Routine EVERY 6 HOURS (START TIME ADJUSTABLE) START TIME ADJUSTABLE for 1 Days starting 07/19/2019 until 07/20/2019 ETHYLENE GLYCOL LAB Routine ONCE for 1 Occurrences starting 07/19/2019 until 07/19/2019 GALV ONLY - SYPHILIS LAB Add-on ONCE for 1 Occurrences IGG/IGM starting 07/19/2019 until 07/19/2019 CBC WITH DIFF LAB Routine EVERY 24 HOURS (START TIME ADJUSTABLE) for 3 Days starting 07/20/2019 until 07/22/2019 PROTHROMBIN TIME / INR LAB Routine EVERY 24 HOURS (START TIME ADJUSTABLE) for 3 Days starting 07/20/2019 until 07/22/2019 COMP. METABOLIC PANEL LAB Routine EVERY 24 HOURS (START (41725) TIME ADJUSTABLE) for 3 Days starting 07/20/2019 until 07/22/2019 MAGNESIUM LAB Routine EVERY 24 HOURS (START TIME ADJUSTABLE) for 4 Days starting 07/20/2019 until 07/23/2019 Health Maintenance Due Date Last Done Comments DTaP,Tdap,and Td Vaccines (1 - Tdap) 1986 PNEUMOCOCCAL 0-64 YEARS COMBINED SERIES (2 01/16/2019 11/21/2018 of 3 - PPSV23) INFLUENZA VACCINE Completed 12/23/2018, 01/22/2018 documented as of this encounter Procedures Procedure Name Priority Date/Time Associated Comments Diagnosis FIBRINOGEN Routine 07/19/2019 5:21 Results for this PM CDT procedure are in the results section. PREPARE CRYOPRECIPITATE Routine 07/19/2019 11:45 Results for this AM CDT procedure are in the results section. SERUM DRUG STAT 07/19/2019 11:33 Results for this (IMMUNOASSAY) - AM CDT procedure are in COMPREHENSIVE DRUG the results SCREEN section. THYROID STIMULATING Add-on 07/19/2019 11:33 Results for this HORMONE AM CDT procedure are in the results section. PHOSPHORUS Add-on 07/19/2019 11:33 Results for this AM CDT procedure are in the results section. PREPARE CRYOPRECIPITATE Routine 07/19/2019 9:47 Results for this AM CDT procedure are in the results section. EGD (ENDO) Routine 07/19/2019 7:39 AM CDT US ABDOMEN LIMITED WITH Routine 07/19/2019 6:50 Altered mental Results for this DOPPLER AM CDT status, unspecified procedure are in altered mental the results status type section. Alcoholic cirrhosis of liver with ascites CBC WITH DIFFERENTIAL Routine 07/19/2019 5:22 Results for this AM CDT procedure are in the results section. FIBRINOGEN Routine 07/19/2019 5:22 Results for this AM CDT procedure are in the results section. ACTIVATED PARTIAL Routine 07/19/2019 5:22 Results for this THRMPLAS FRANCISCA AM CDT procedure are in the results section. PROTHROMBIN TIME / INR Routine 07/19/2019 5:22 Results for this AM CDT procedure are in the results section. CBC WITH DIFFERENTIAL Routine 07/19/2019 5:22 Results for this AM CDT procedure are in the results section. ETHANOL Add-on 07/19/2019 5:22 Results for this AM CDT procedure are in the results section. BASIC METABOLIC PANEL Routine 07/19/2019 5:22 Results for this (NA, K, CL, CO2, AM CDT procedure are in GLUCOSE, BUN, the results CREATININE, CA) section. HEPATIC FUNCTION PANEL Routine 07/19/2019 5:22 Results for this (76092) (ALB,T.PRO,BILI AM CDT procedure are in T,BU/BC,ALT,AST,ALK the results PHOS) section. MAGNESIUM Routine 07/19/2019 5:22 Results for this AM CDT procedure are in the results section. TRANSFUSE Routine 07/19/2019 12:57 CRYOPRECIPITATE AM CDT PREPARE CRYOPRECIPITATE Routine 07/19/2019 12:01 Results for this AM CDT procedure are in the results section. URINALYSIS STAT 07/18/2019 11:20 Lethargy Results for this PM CDT procedure are in the results section. GALV/CLC ONLY - URINE Routine 07/18/2019 11:18 Results for this DRUG (IMMUNOASSAY) - PM CDT procedure are in COMPREHENSIVE DRUG the results SCREEN section. HB ABO GROUPING Routine 07/18/2019 10:35 Results for this PM CDT procedure are in the results section. XR CHEST 1 VW Routine 07/18/2019 10:20 Altered mental Results for this PM CDT status, unspecified procedure are in altered mental the results status type section. CT HEAD WO CONTRAST STAT 07/18/2019 7:31 Lethargy Results for this PM CDT procedure are in the results section. CBC WITH DIFFERENTIAL STAT 07/18/2019 6:49 Lethargy Results for this PM CDT procedure are in the results section. EXTRA TUBE LAV STAT 07/18/2019 6:49 PM CDT FIBRINOGEN Add-on 07/18/2019 6:49 Results for this PM CDT procedure are in the results section. ACTIVATED PARTIAL STAT 07/18/2019 6:49 Lethargy Results for this THRMPLAS FRANCISCA PM CDT procedure are in the results section. PROTHROMBIN TIME / INR STAT 07/18/2019 6:49 Lethargy Results for this PM CDT procedure are in the results section. GLYCOSYLATED HEMOGLOBIN Add-on 07/18/2019 6:49 Results for this (A1C) PM CDT procedure are in the results section. CBC WITH DIFFERENTIAL Routine 07/18/2019 6:49 Lethargy Results for this PM CDT procedure are in the results section. COMP. METABOLIC PANEL STAT 07/18/2019 6:49 Lethargy Results for this (80936) PM CDT procedure are in the results section. TROPONIN I STAT 07/18/2019 6:49 Lethargy Results for this PM CDT procedure are in the results section. FOLATE Add-on 07/18/2019 6:49 Results for this PM CDT procedure are in the results section. VITAMIN B12, LEVEL Add-on 07/18/2019 6:49 Results for this PM CDT procedure are in the results section. AMMONIA, PLASMA STAT 07/18/2019 6:49 Lethargy Results for this PM CDT procedure are in the results section. CK (CREATINE KINASE) + STAT 07/18/2019 6:49 Lethargy Results for this MB PM CDT procedure are in the results section. EKG-12 LEAD STAT 07/18/2019 6:44 PM CDT documented in this encounter Results FIBRINOGEN (07/19/2019 5:21 PM CDT) Fibrinogen 157 (L) 167 - 453 mg/dL [facility] Specimen Blood - ARM, RIGHT Performing Organization Address City/[facility]/Zipcode Phone Number [facility] CLIA: [id number], [address] [place] [address] [phone] 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 [id number] Specimen Performing Organization Address City/[facility] Phone Number [facility] PHOSPHORUS (07/19/2019 11:33 AM CDT) PHOSPHORUS 3.5 2.5 - 5.0 mg/dL [facility] Specimen Blood - ARM, RIGHT Performing Organization Address [facility] Phone Number [facility] CLIA: [id number], [address] [place] [address] [phone] [facility] THYROID STIMULATING HORMONE (07/19/2019 11:33 AM CDT) Pathologist [facility] [place] TSH 1.82 0.45 - 4.70 mIU/L [facility] Specimen Blood - ARM, RIGHT Performing Organization Address [facility] Phone Number [facility] CLIA: [id number], [address] [place] [address] [facility] SERUM DRUG (IMMUNOASSAY) - COMPREHENSIVE DRUG SCREEN (07/19/2019 11:33 AM CDT) KIANA S Negative Negative [facility] BENZO S Negative Negative [facility] TRICYCLIC Negative Negative [facility] Specimen Blood - ARM, RIGHT Narrative Performed At Serum Drug Screen Cutoff Ranges [facility] Barbiturates - 3 mcg/mL Benzodiazepines - 50 ng/mL TCA - 300 ng/mL Test developed and characteristics determined by [facility]. The results are to be used only for medical (i.e., treatment) purposes. Unconfirmed screening results must not be used for non-medical purposes (e.g., employment testing, legal testing). Performing Organization Address City/State/Zipcode Phone Number [facility] CLIA: [id number], [address] [place] [address] [facility] Prepare Cryoprecipitate (in units): 1 Units~Indication: 1) Fibrinogen < 100 mg/dL with bleeding or potential for bleeding associated with invasive procedure (07/19/2019 9:47 AM CDT) Unit Blood Type O Pos LAB ISBT Blood Type Code 5100 LAB Unit Number [id number] LAB Blood Expiration Date LAB & Time Status Information Issued LAB Product Identification Cryoprecipitate LAB Product Code [id number] LAB Comment: Performed at [facility] Services - [facility] Blood Bank [address] [place] [address] Toll Free: [phone] CLIA No. [id number] Specimen Performing Organization Address [facility] Phone Number BLD LAB US ABDOMEN LIMITED WITH DOPPLER (07/19/2019 6:50 AM CDT) Specimen Impressions Performed At PACS/VR/DOSE Cirrhotic liver morphology with a 3.1 cm circumscribed lesion within the right hepatic lobe that is better described on MRI abdomen dated 06/25/2019. Hydropic gallbladder with dilated common bile duct measuring up to 0.9 cm in diameter is redemonstrated, and is better evaluated on MRI abdomen dated 06/25/2019. Preliminary Report Dictated by Resident: Jose De Jesus MD., have reviewed this study and agree with the above report. Narrative Performed At RIGHT UPPER QUADRANT ULTRASOUND PACS/VR/DOSE HISTORY: cirrhosis TECHNIQUE: Transabdominal grayscale, color Doppler, spectral Doppler ultrasound examination of the abdomen with emphasis on the liver, gallbladder, and spleen was performed. Cine clips were then generated. COMPARISON: MRI abdomen 06/25/2019. FINDINGS: LIVER: Normal in size (13.9 cm). Hepatic parenchyma demonstrates a coarsened echotexture. The hepatic contour is nodular. A 3.1 x 2.8 x 2.9 cm mildly hypoechoic lesion is noted within the right hepatic lobe, and is consistent with recent hepatic lesion described on MRI abdomen dated 06/25/2019.. Normal hepatopetal flow within the main portal vein. GALLBLADDER: No cholelithiasis no pericholecystic fluid. No sonographic Craft's sign although the patient was administered preprocedural analgesia. The gallbladder appears hydropic. The common bile duct measures 9 mm. PANCREAS: Incompletely visualized due to overlying bowel gas. RIGHT KIDNEY: The visualized portion of the right kidney is unremarkable. SPLEEN: The spleen is normal in size (12.4 cm). Procedure Note [facility], Radiant Results Inft User - 07/19/2019 8:01 AM CDT RIGHT UPPER QUADRANT ULTRASOUND HISTORY: cirrhosis TECHNIQUE: Transabdominal grayscale, color Doppler, spectral Doppler ultrasound examination of the abdomen with emphasis on the liver, gallbladder, and spleen was performed. Cine clips were then generated. COMPARISON: MRI abdomen 06/25/2019. FINDINGS: LIVER: Normal in size (13.9 cm). Hepatic parenchyma demonstrates a coarsened echotexture. The hepatic contour is nodular. A 3.1 x 2.8 x 2.9 cm mildly hypoechoic lesion is noted within the right hepatic lobe, and is consistent with recent hepatic lesion described on MRI abdomen dated 06/25/2019.. Normal hepatopetal flow within the main portal vein. GALLBLADDER: No cholelithiasis no pericholecystic fluid. No sonographic Craft's sign although the patient was administered preprocedural analgesia. The gallbladder appears hydropic. The common bile duct measures 9 mm. PANCREAS: Incompletely visualized due to overlying bowel gas. RIGHT KIDNEY: The visualized portion of the right kidney is unremarkable. SPLEEN: The spleen is normal in size (12.4 cm). IMPRESSION Cirrhotic liver morphology with a 3.1 cm circumscribed lesion within the right hepatic lobe that is better described on MRI abdomen dated 06/25/2019. Hydropic gallbladder with dilated common bile duct measuring up to 0.9 cm in diameter is redemonstrated, and is better evaluated on MRI abdomen dated 06/25/2019. Preliminary Report Dictated by Resident: Ndy C IkwJose Ma MD., have reviewed this study and agree with the above report. Performing Organization Address City/State/Zipcode Phone Number PACS/VR/DOSE ETHANOL (07/19/2019 5:22 AM CDT) ALCOHOL <10 mg/dL [facility] Specimen Blood - ARM, RIGHT Narrative Performed At Toxic Greater than or equal to 80 mg/dL. [facility] NOTE: Whole blood values are approximately 10% to 15% lower than serum and plasma. Performing Organization Address City/State/Zipcode Phone Number [facility] CLIA: [id number], [address] [place] [address] [facility] CBC WITH DIFFERENTIAL (07/19/2019 5:22 AM CDT) WBC 4.30 4.20 - 10.70 [facility] 10*3/L SERVICES RBC 2.54 (L) 4.26 - 5.52 [facility] 10*6/L SERVICES HGB 8.3 (L) 12.2 - 16.4 [facility] g/dL SERVICES HCT 25.4 (L) 38.4 - 49.3 % [facility] MCV 100.0 (H) 81.7 - 95.6 [facility] fL SERVICES MCH 32.7 26.1 - 32.7 [facility] pg SERVICES MCHC 32.7 31.2 - 35.0 [facility] g/dL SERVICES RDW-SD 79.9 (H) 38.5 - 51.6 [facility] fL SERVICES RDW-CV 22.3 (H) 12.1 - 15.4 % [facility] PLT 63 (L) 150 - 328 [facility] 10*3/L SERVICES MPV 9.5 (L) 9.8 - 13.0 fL [facility] IPF % 3.0Comment: Platelet 1.2 - 10.7 % [facility] count measured by SERVICES fluorescence method. NRBC/100 WBC 0.5 0.0 - 10.0 [facility] /100 WBCs SERVICES NRBC x10^3 0.02 10*3/L [facility] GRAN MAT (NEUT) % 52.1 % [facility] IMM GRAN % 0.50 % [facility] LYMPH % 26.5 % [facility] MONO % 14.2 % [facility] EOS % 6.0 % [facility] BASO % 0.7 % [facility] GRAN MAT 2.24 1.99 - 6.95 [facility] x10^3(ANC) 10*3/uL SERVICES IMM GRAN x10^3 <0.03 0.00 - 0.06 [facility] 10*3/uL SERVICES LYMPH x10^3 1.14 1.09 - 3.23 [facility] 10*3/uL SERVICES MONO x10^3 0.61 0.36 - 1.02 [facility] 10*3/uL SERVICES EOS x10^3 0.26 0.06 - 0.53 [facility] 10*3/uL SERVICES BASO x10^3 0.03 0.01 - 0.09 [facility] 10*3/uL SERVICES Specimen Blood - ARM, RIGHT Performing Organization Address [facility] Phone Number [facility] CLIA: [id number], [address] [place] [address] [facility] FIBRINOGEN (07/19/2019 5:22 AM CDT) Fibrinogen 109 (L) 167 - 453 mg/dL [facility] Specimen Blood - ARM, RIGHT Performing Organization Address [facility] Phone Number [facility] CLIA: [id number], [address] [place], [place] [address] [phone] [facility] aPTT (07/19/2019 5:22 AM CDT) APTT Patient 47 (H) 26 - 36 Seconds [facility] Specimen Blood - ARM, RIGHT Performing Organization Address [facility] Phone Number [facility] CLIA: [id number], [address] [place] [address] [phone] [facility] Prothrombin Time / INR (07/19/2019 5:22 AM CDT) PROTIME PATIENT 22.9 (H) 10.1 - 12.6 [facility] Seconds SERVICES INR 2.0Comment: Normal [facility] INR <1.1; Warfarin SERVICES Therapeutic range 2.0 to 3.0 or 2.5 to 3.5, depending upon the indications. Specimen Blood - ARM, RIGHT Performing Organization Address [facility] Phone Number [facility] CLIA: [id number], [address] [place] [address] [facility] Magnesium Serum (07/19/2019 5:22 AM CDT) MAGNESIUM 1.6 (L) 1.7 - 2.4 mg/dL [facility] Specimen Blood - ARM, RIGHT Performing Organization Address [facility] Phone Number [facility] CLIA: [id number], [address] [place] [phone] [facility] HEPATIC FUNCTION PANEL ([id number]) (ALB,T.PRO,BILI T,BU/BC,ALT,AST,ALK PHOS) (2019 5:22 AM CDT) TOTAL BILI 3.4 (H) 0.1 - 1.1 mg/dL [facility] BILI UNCON 2.1 (H) 0.1 - 1.1 mg/dL [facility] BILI CONJ 0.0 0.0 - 0.3 mg/dL [facility] T PROTEIN 7.4 6.3 - 8.2 g/dL [facility] ALBUMIN 2.5 (L) 3.5 - 5.0 g/dL [facility] ALK PHOS 253 (H) 34 - 122 U/L [facility] ALTv 46 5 - 50 U/L [facility] AST(SGOT) 71 (H) 13 - 40 U/L [facility] Specimen Blood - ARM, RIGHT Performing Organization Address [facility] Phone Number [facility] CLIA: [id number], [address] [place] [address] [phone] [facility] Basic Metabolic Panel (NA, K, CL, CO2, GLUCOSE, BUN, CREATININE, CA) (2019 5:22 AM CDT) NA 137 135 - 145 [facility] mmol/L SERVICES K 3.6 3.5 - 5.0 [facility] mmol/L SERVICES CL 107 98 - 108 mmol/L [facility] CO2 TOTAL 23 23 - 31 mmol/L [facility] AGAP 7 2 - 16 [facility] BUN 11 7 - 23 mg/dL [facility] GLUCOSE 223 (H) 70 - 110 mg/dL [facility] CREATININE 0.73 0.60 - 1.25 [facility] mg/dL SERVICES CALCIUM 8.3 (L) 8.6 - 10.6 [facility] mg/dL SERVICES eGFR Calculation 116.7 mL/min/1.73m2 [facility] (Non- SERVICES Djiboutian) eGFR Calculation 141.5 mL/min/1.73m2 [facility] () SERVICES Specimen Blood - ARM, RIGHT Narrative Performed At Association of Glomerular Filtration Rate (GFR) and Staging [facility] of Kidney Disease* + + + + | GFR (mL/min/1.73 m2) | With Kidney Damage | Without Kidney Damage + + + + | >90 | Stage one | Normal + + + + | 60-89 | Stage two | Decreased GFR + + + + | 30-59 | Stage three | Stage three + + + + | 15-29 | Stage four | Stage four + + + + | <15 (or dialysis) | Stage five | Stage five + + + [...] tests). Performing Organization Address City/State/Zipcode Phone Number [facility] CLIA: [id number], [address] [place] [address] [phone] [facility] Prepare Cryoprecipitate (in units): 1 Units~Indication: 1) Fibrinogen < 100 mg/dL with bleeding or potential for bleeding associated with invasive procedure (07/19/2019 12:01 AM CDT) Unit Blood Type O Pos LAB ISBT Blood Type Code 5100 LAB Unit Number [id number] LAB Blood Expiration Date LAB & Time Status Information Issued LAB Product Identification Cryoprecipitate LAB Product Code [id number] LAB Comment: Performed at [facility] Services - [facility] Blood Bank [address] [place] [address], [place], [place] [address] Toll Free: [phone] CLIA No. [id number] Specimen Performing Organization Address City/[facility]/Zipcode Phone Number [facility] URINALYSIS (07/18/2019 11:20 PM CDT) APPEARANCE Clear Clear [facility] COLOR Yellow Yellow [facility] PH 7.0 4.8 - 8.0 [facility] SP GRAVITY 1.012 1.003 - 1.030 [facility] GLU U QUAL Normal Normal [facility] BLOOD Negative Negative [facility] KETONES Negative Negative [facility] PROTEIN Negative Negative [facility] UROBILIN Normal Normal [facility] BILIRUBIN Negative Negative [facility] NITRITE Negative Negative [facility] LEUK VALENTINA Negative Negative [facility] RBC/HPF <1 0 - 3 HPF [facility] WBC/HPF 1 0 - 5 HPF [facility] BACTERIA Negative Negative [facility] HYAL CAST 1 <=2 LPF [facility] ASCORBIC ACID Negative [facility] Specimen Urine - URINE, CLEAN CATCH Performing Organization Address [facility]/Zipcode Phone Number [facility] CLIA: [id number], [address] [place] [address] [facility] GALV/CLC ONLY - URINE DRUG (IMMUNOASSAY) - COMPREHENSIVE DRUG SCREEN (2019 11:18 PM CDT) AMPHET Negative Negative [facility] KIANA U Negative Negative [facility] BENZO U Negative Negative [facility] Cocaine Metabolite Negative Negative [facility] METHADONE Negative Negative [facility] OPIATES Presumptive Negative [facility] Positive (A) SERVICES PCP Negative Negative [...] Phone Number [facility] CLIA: [id number], [address] [place] [address] [phone] [facility] Type and Screen - ONCE Routine (07/18/2019 10:35 PM CDT) ABO & RH O POSITIVE LAB Comment: Performed at [facility] - [facility] Blood Bank [address] [place] [address] Toll Free: [phone] CLIA No. [id number] IAT Negative LAB Comment: Performed at [facility] - [facility] Blood [address] [address] Toll Free: [phone] CLIA No. [id number] Specimen Blood - VENOUS Performing Organization Address City/State/Zipcode Phone Number BLD LAB XR CHEST 1 VW (07/18/2019 10:20 PM CDT) Specimen Impressions Performed At PACS/VR/DOSE Patchy left basilar and perihilar opacities and small left pleural effusion is suggestive of infection in the proper clinical setting. Recommend follow-up radiograph to ensure resolution after treatment. Preliminary Report Dictated by Resident: Jonathan Duffy I, Mirella Rosenberg MD., have reviewed this study and agree with the above report. Narrative Performed At XR CHEST 1 VW PACS/VR/DOSE HISTORY: AMS - assess for pNA COMPARISON: X-ray dated 06/12/2019 FINDINGS: The lungs are underexpanded resulting in pulmonary vascular crowding. Patchy opacities are present in the left lung base and left midlung, associated with small left pleural effusion, concerning for infection. The heart is normal in size. No pneumothorax is found. Procedure Note [facility], Radiant Results Inft User - 07/19/2019 10:17 AM CDT XR CHEST 1 VW HISTORY: AMS - assess for pNA COMPARISON: X-ray dated 06/12/2019 FINDINGS: The lungs are underexpanded resulting in pulmonary vascular crowding. Patchy opacities are present in the left lung base and left midlung, associated with small left pleural effusion, concerning for infection. The heart is normal in size. No pneumothorax is found. IMPRESSION Patchy left basilar and perihilar opacities and small left pleural effusion is suggestive of infection in the proper clinical setting. Recommend follow-up radiograph to ensure resolution after treatment. Preliminary Report Dictated by Resident: Jonathan Duffy I, Mirella Rosenberg MD., have reviewed this study and agree with the above report. Performing Organization Address City/State/[facility] Phone Number PACS/VR/DOSE CT HEAD WO CONTRAST (07/18/2019 7:31 PM CDT) Specimen Impressions Performed At PACS/VR/DOSE Within confines of motion degradation, no acute intracranial hemorrhage or mass effect. Narrative Performed At CT HEAD WO CONTRAST PACS/VR/DOSE HISTORY: Altered mental status (AMS), unclear cause , lethargic, ammonia high. hx liver cancer and cirrhosis. COMPARISON: None available. TECHNIQUE: Routine unenhanced brain CT. FINDINGS: Images degraded by motion artifacts. No acute intracranial hemorrhage, extracerebral fluid collection, midline shift or mass effect. No acute transcortical infarction. Ventricles are normal. Mild cerebral volume loss. No depressed calvarial fracture. Mild disconjugate gaze. Visualized paranasal sinuses are essentially clear. Procedure Note [facility], Radiant Results Inft User - 07/18/2019 7:[address] HEAD WO CONTRAST HISTORY: Altered mental status (AMS), unclear cause , lethargic, ammonia high. hx liver cancer and cirrhosis. COMPARISON: None available. TECHNIQUE: Routine unenhanced brain CT. FINDINGS: Images degraded by motion artifacts. No acute intracranial hemorrhage, extracerebral fluid collection, midline shift or mass effect. No acute transcortical infarction. Ventricles are normal. Mild cerebral volume loss. No depressed calvarial fracture. Mild disconjugate gaze. Visualized paranasal sinuses are essentially clear. IMPRESSION Within confines of motion degradation, no acute intracranial hemorrhage or mass effect. Performing Organization Address [facility] Phone Number PACS/VR/DOSE VITAMIN B12, LEVEL (07/18/2019 6:49 PM CDT) VIT B12 687 240 - 930 pg/mL [facility] Specimen Blood - VENOUS Narrative Performed At [facility] has been reported to cause a positive bias, interpret [facility] results relative to patient's use of biotin. Performing Organization Address City/State/Zipcode Phone Number [facility] CLIA: [id number], [address] [place] [address] [facility] FOLATE (07/18/2019 6:49 PM CDT) FOLATE SER >20.0 (H)Comment: 3.0 - 20.0 [facility] Biotin has been ng/mL SERVICES reported to cause a positive bias, interpret results relative to patient's use of biotin. Specimen Blood - VENOUS Performing Organization Address City/[facility]/Zipcode Phone Number [facility] CLIA: [id number], [address] [place] [address] [phone] [facility] GLYCOSYLATED HEMOGLOBIN (A1C) (07/18/2019 6:49 PM CDT) Pathologist [facility] [place] HGB A1C 5.2 4.0 - 6.0 % [facility] Specimen Blood - VENOUS Performing Organization Address City/[facility] Phone Number [facility] CLIA: [id number], [address] [place] [address] [phone] [facility] FIBRINOGEN (07/18/2019 6:49 PM CDT) Pathologist [facility] [place] Fibrinogen 94 (LL) 167 - 453 mg/dL [facility] Specimen Blood - VENOUS Performing Organization Address City/[facility] Phone Number [facility] CLIA: [id number], [address] [place] [address] [phone] [facility] EXTRA TUBE LAV (07/18/2019 6:49 PM CDT) Specimen Blood Performing Organization Address [facility] Phone Number [facility] CLIA: [id number], [address] [place] [address] [facility] CBC WITH DIFFERENTIAL (07/18/2019 6:49 PM CDT) WBC 5.79 4.20 - 10.70 [facility] 10*3/L SERVICES RBC 2.51 (L) 4.26 - 5.52 [facility] 10*6/L SERVICES HGB 8.3 (L) 12.2 - 16.4 [facility] g/dL SERVICES HCT 25.1 (L) 38.4 - 49.3 % [facility] SERVICES MCV 100.0 (H) 81.7 - 95.6 [facility] fL SERVICES MCH 33.1 (H) 26.1 - 32.7 [facility] pg SERVICES MCHC 33.1 31.2 - 35.0 [facility] g/dL SERVICES RDW-SD 78.3 (H) 38.5 - 51.6 [facility] fL SERVICES RDW-CV 22.0 (H) 12.1 - 15.4 % [facility] PLT 64 (L) 150 - 328 [facility] 10*3/L SERVICES MPV 9.8 9.8 - 13.0 fL [facility] IPF % 2.1Comment: Platelet 1.2 - 10.7 % [facility] count measured by SERVICES fluorescence method. NRBC/100 WBC 0.0 0.0 - 10.0 [facility] /100 WBCs SERVICES NRBC x10^3 <0.01 10*3/L [facility] GRAN MAT (NEUT) % 52.6 % [facility] IMM GRAN % 0.50 % [facility] LYMPH % 26.1 % [facility] MONO % 15.2 % [facility] EOS % 4.7 % [facility] BASO % 0.9 % [facility] GRAN MAT 3.05 1.99 - 6.95 [facility] x10^3(ANC) 10*3/uL SERVICES IMM GRAN x10^3 0.03 0.00 - 0.06 [facility] 10*3/uL SERVICES LYMPH x10^3 1.51 1.09 - 3.23 [facility] 10*3/uL SERVICES MONO x10^3 0.88 0.36 - 1.02 [facility] 10*3/uL SERVICES EOS x10^3 0.27 0.06 - 0.53 [facility] 10*3/uL SERVICES BASO x10^3 0.05 0.01 - 0.09 [facility] 10*3/uL SERVICES Specimen Blood - VENOUS Performing Organization Address City/State/Zipcode Phone Number [facility] CLIA: [id number], [address] [place] [address] [facility] CK (CREATINE KINASE) + MB (07/18/2019 6:49 PM CDT) CK 74 33 - 194 U/L [facility] CK-MB 2.87 <=3.50 ng/mL [facility] CKMB INDEX 3.9 (H)Comment: 0.0 - 2.5 % [facility] Slight hemolysis SERVICES Specimen Blood - VENOUS Narrative Performed At Biotin has been reported to cause a negative bias, interpret [facility] results relative to patient's use of biotin. Performing Organization Address [facility] Phone Number [facility] CLIA: [id number], [address] [place] [phone] [facility] TROPONIN I (07/18/2019 6:49 PM CDT) TROPONIN I <0.012 <=0.034 ng/mL [facility] Specimen Blood - VENOUS Narrative Performed At Equal or Less than 0.034 ng/ml---Normal [facility] Note: Cardiac troponin begins to rise 3-4 hours after the onset of ischemia. Repeat in 4-6 hours if the sample was drawn within 3-4 hours of the onset of the symptom and found normal. Between 0.035 and 0.120 ng/mL--- Borderline. Questionable myocardial injury or necrosis Note: Serial measurement may be necessary to confirm or exclude the diagnosis of myocardial injury or necrosis; Clinical correlation (symptoms, EKGs, imaging studies, and others) required; Repeat in 4-6 hours if clinically indicated. Equal or Higher than 0.121 ng/mL---Abnormal. Myocardial Injury or Necrosis Likely Biotin has been reported to cause a negative bias, interpret results relative to patient's use of biotin. Performing Organization Address City[facility] Phone Number [facility] CLIA: [id number], [address] [place] [phone] [facility] aPTT (07/18/2019 6:49 PM CDT) APTT Patient 45 (H) 26 - 36 Seconds [facility] Specimen Blood - VENOUS Performing Organization Address City/[facility]/Zipcode Phone Number [facility] CLIA: [id number], [address] [place] [address] [phone] [facility] PROTHROMBIN TIME / INR (07/18/2019 6:49 PM CDT) PROTIME PATIENT 24.1 (H) 10.1 - 12.6 [facility] Seconds SERVICES INR 2.1Comment: Normal [facility] INR <1.1; Warfarin SERVICES Therapeutic range 2.0 to 3.0 or 2.5 to 3.5, depending upon the indications. Specimen Blood - VENOUS Performing Organization Address City/State/Zipcode Phone Number [facility] CLIA: [id number], [address] [place] [address] [facility] AMMONIA, PLASMA (07/18/2019 6:49 PM CDT) AMMONIA 63 (H)Comment: 9 - 33 umol/L [facility] Slight hemolysis SERVICES Specimen Blood - VENOUS Performing Organization Address City/[facility]/Zipcode Phone Number [facility] CLIA: [id number], [address] [place] [phone] [facility] COMP. METABOLIC PANEL (36546) (07/18/2019 6:49 PM CDT) NA 137 135 - 145 [facility] mmol/L SERVICES K 4.7Comment: 3.5 - 5.0 [facility] Slight hemolysis mmol/L SERVICES CL 109 (H) 98 - 108 [facility] mmol/L SERVICES CO2 TOTAL 19 (L) 23 - 31 [facility] mmol/L SERVICES AGAP 9 2 - 16 [facility] BUN 14Comment: Slight 7 - 23 mg/dL [facility] hemolysis SERVICES GLUCOSE 239 (H) 70 - 110 [facility] mg/dL SERVICES CREATININE 0.84 0.60 - 1.25 [facility] mg/dL SERVICES TOTAL BILI 3.9 (H) 0.1 - 1.1 [facility] mg/dL SERVICES CALCIUM 8.2 (L) 8.6 - 10.6 [facility] mg/dL SERVICES T PROTEIN 7.6 6.3 - 8.2 [facility] g/dL SERVICES ALBUMIN 2.7 (L) 3.5 - 5.0 [facility] g/dL SERVICES ALK PHOS 261 (H)Comment: 34 - 122 U/L [facility] Slight hemolysis SERVICES ALTv 45 5 - 50 U/L [facility] AST(SGOT) 83 (H)Comment: 13 - 40 U/L [facility] Slight hemolysis SERVICES eGFR Calculation 99.3 mL/min/1.73m2 [facility] (Non- SERVICES [place]) eGFR Calculation 120.3 mL/min/1.73m2 [facility] () SERVICES Specimen Blood - VENOUS Narrative Performed At Association of Glomerular Filtration Rate (GFR) and Staging [facility] of Kidney Disease* + + + + | GFR (mL/min/1.73 m2) | With Kidney Damage | Without Kidney Damage + + + + | >90 | Stage one | Normal + + + + | 60-89 | Stage two | Decreased GFR + + + + | 30-59 | Stage three | Stage three + + + + | 15-29 | Stage four | Stage four + + + + | <15 (or dialysis) | Stage five | Stage five + + + [...] tests). Performing Organization Address City/State/Zipcode Phone Number [facility] CLIA: [id number], [address] [place] [address] [phone] [facility] documented in this encounter Visit Diagnoses Diagnosis Lethargy - Primary Other malaise and fatigue Hepatic encephalopathy Altered mental status, unspecified altered mental status type Alcoholic cirrhosis of liver with ascites Alcoholic cirrhosis of liver Liver transplant candidate Melena Blood in stool Chronic liver failure without hepatic coma documented in this encounter Administered Medications Medication Order MAR Action Action Date Dose Rate Site ciprofloxacin HCl (CIPRO) tablet Given 07/19/2019 5:09 AM CDT 500 mg 500 mg 500 mg, Oral, Q24H ABX, First dose on Mon07/19/19 at 0600, Until Discontinued, RUPERT, Reason for Anti-Infective: Documented Infection, Documented Infection Site: Abdominal, Duration of Therapy: 7 days escitalopram oxalate (LEXAPRO) tablet 20 mg Given 07/19/2019 9:05 AM CDT 20 mg 20 mg, Oral, DAILY, First dose on Mon07/19/19 at 0900, Until Discontinued, Routine foLIC acid (FOLATE) tablet 1 mg Given 07/19/2019 9:05 AM CDT 1 mg 1 mg, Oral, DAILY, First dose on Mon07/19/19 at 0900, Until Discontinued, Routine hydrOXYzine (ATARAX) tablet 10 mg 10 mg, Oral, Q6HPRN, Starting Mon07/18/19 at 2148, Until Discontinued, Routine , Anxiety lactulose (CEPHULAC) solution 30 mL Given 07/19/2019 5:26 PM CDT 30 mL 30 mL, Oral, Q4H, First dose on Mon07/19/19 at 1200, Until Discontinued, Routine oxazepam (SERAX) capsule 15 mg 15 mg, Oral, Q8HPRN, Starting Mon07/19/19 at 1636, Until Discontinued, Routine , agitation, notify house sitter pantoprazole (PROTONIX) 40 mg in NaCl 0.9% Given 07/19/2019 10:23 AM CDT 40 mg (NS) 100 mL MINI-BAG 40 mg, IV Piggyback, Q12H, First dose on Mon07/18/19 at 2100, Until Discontinued, 100 mL Given 07/18/2019 10:30 PM CDT 40 mg phytonadione (VITAMIN K) 10 mg in NaCl 0.9% Given 07/19/2019 9:04 AM CDT 10 mg (NS) piggyback 10 mg, IV Piggyback, DAILY, 3 doses, First dose on Mon07/19/19 at 0900, Last dose on Mon07/21/19 at 0900, 50 mL rifAXIMin (XIFAXAN) tablet 550 mg Given 07/19/2019 9:05 AM CDT 550 mg 550 mg, Oral, BID, First dose on Mon07/19/19 at 0800, Until Discontinued, Routine, Reason for Anti-Infective: Empiric Therapy for Suspected Infection, Empiric Therapy Site: Abdominal, Duration of therapy: 72 hours thiamine (VITAMIN B1) tablet 100 mg Given 07/19/2019 9:05 AM CDT 100 mg 100 mg, Oral, DAILY, First dose on Mon07/19/19 at 0900, Until Discontinued, Routine traMADol (ULTRAM) tablet 50 mg 50 mg, Oral, Q8HPRN, Starting Mon07/19/19 at 1045, Until Discontinued, Routine , Pain (scale 4-6) traZODone (DESYREL) tablet 100 mg 100 mg, Oral, QHSPRN, Starting Mon07/18/19 at 2148, Until Discontinued, Routine , Insomnia zinc sulfate (ORAZINC) capsule 220 mg Given 07/19/2019 9:05 AM CDT 220 mg 220 mg, Oral, TID, First dose on Mon07/19/19 at 0800, Until Discontinued, Routine Medication Order MAR Action Action Date Dose Rate Site furosemide (LASIX) tablet 40 mg Given 07/19/2019 9:04 AM CDT 40 mg 40 mg, Oral, DAILY, First dose on Mon07/19/19 at 0900, Until Discontinued, Routine lactulose (CEPHULAC) solution 15 mL Given 07/19/2019 9:04 AM CDT 15 mL 15 mL, Oral, Q4H, First dose on Mon07/19/19 at 0000, Until Discontinued, Routine Given 07/19/2019 5:09 AM CDT 15 mL Given 07/19/2019 12:50 AM CDT 15 mL lactulose (CEPHULAC) solution 30 mL Given 07/18/2019 8:54 PM CDT 30 mL 30 mL, Oral, ONCE, 1 dose, Leighann 07/18/19 at 2100, RUPERT magnesium sulfate in water 4 gram/50 mL (8 %) New Bag 07/19/2019 5:26 PM CDT 4 g IV Piggyback 4 g 4 g, IV Piggyback, ONCE, 1 dose, Mon07/19/19 at 1500, Routine NaCl 0.9% (NS) IV infusion 500 mL New Bag 07/18/2019 10:18 PM CDT 500 mL 125 mL/hr at 125 mL/hr, IV Infusion, ONCE, 1 dose, [facility] 07/18/19 at 2315, Routine phytonadione (VITAMIN K) 5 mg in NaCl 0.9% Given 07/18/2019 10:30 PM CDT 5 mg (NS) piggyback 5 mg, IV Piggyback, ONCE, 1 dose, [facility] 07/18/19 at 2200, 50 mL spironolactone (ALDACTONE) tablet 100 mg Given 07/19/2019 9:05 AM CDT 100 mg 100 mg, Oral, DAILY, First dose on Mon07/19/19 at 0900, Until Discontinued, Routine traMADol (ULTRAM) tablet 50 mg Given 07/19/2019 5:59 AM CDT 50 mg 50 mg, Oral, Q6HPRN, Starting Mon07/19/19 at 0529, Until Mon07/19/19 at 1038, Routine, Pain (scale 4-6) documented in this encounter Insurance Payer Benefit Plan / Subscriber ID Effective Dates Phone Address Type Group BCBS OF HIM BCBS BLUE [id number] [phone] [address] [facility] [phone] [place] [address] documented as of this encounter
--- OUTSIDE RECORDS SUMMARY | 2019-07-28 07:37 | XMS REPORT | Summary of Care ---
:1975 Author Organization [facility] Address [address] [place] [address] Care Team Providers Name Role Phone Сергей Dailey Sohail Primary Care Provider Reason for Visit Reason Comments New Evaluation Encounter Details Date Type Department Care Team Description 06/21/2019 Office Visit [facility] Iza, Pre-transplant Transplant-[place] MD Gladis evaluation for Multispecialty Ctr [address] [facility] chronic liver [address] [facility] S disease (Primary Dx) [place] [id number] [phone] Allergies No Known Allergiesdocumented as of this encounter (statuses as of 07/23/2019) Medications Medication Sig Dispensed Refills Start Date End Date Status spironolactone 100 mg Take 1 tablet by 30 tablet 12 01/22/2019 Active tabletIndications: mouth daily. Chronic liver failure without hepatic coma Additional information Patient taking differently: 50 mg Oral BID, Reported on 04/30/2019 4:41 PM rifAXIMin (XIFAXAN) Take 550 mg by 0 Active 550 mg tablet mouth 2 (two) times daily. jeagrkwk-czqz-NL-calci Take 1 tablet by 0 Active um-mins 9 mg iron-400 mouth daily. mcg tablet HYDROXYZINE HCL ORAL [...] Take 10 mL by 480 mL 0 Active suspensionIndications: mouth as needed 020 Acute upper GI bleed (esophageal pain). furosemide 40 mg Take 1 tablet by 90 tablet 0 Active tabletIndications: mouth daily. 020 Common bile duct dilatation, SBP (spontaneous bacterial peritonitis) THIAMINE HCL ORAL Take by mouth. 0 Active lactulose 10 gram/15 Take 30 mL by 500 mL 12 Discontinued mL mouth 2 (two) 019 020 (Reorder) solutionIndications: times daily. Chronic liver failure without hepatic coma gabapentin ER 300 mg Take 600 mg by 0 Discontinued tablet, extended mouth 3 (three) 020 release 24 hr times daily. zinc sulfate (ZINC-220 Take by mouth. 0 Discontinued ORAL) 020 cyclobenzaprine 5 mg Take 1 tablet by 15 tablet 0 Discontinued tabletIndications: Leg mouth 3 (three) 020 020 (Therapy completed) cramps, Hypomagnesemia times daily. methocarbamol 500 mg Take 1 tablet by 18 tablet 0 Discontinued tabletIndications: mouth 3 (three) 020 020 (Therapy completed) Generalized abdominal times daily as pain, Fever, needed for Pain unspecified fever (scale 1-3). cause Magnesium 250 mg Take 1 tablet by 270 tablet 0 Discontinued TabIndications: Common mouth 3 (three) 020 020 (Duplicate) bile duct dilatation, times daily. SBP (spontaneous bacterial peritonitis) HYDROcodone-acetaminop Take 1 tablet by 0 Discontinued hen 10-325 mg tablet mouth every 6 020 (six) hours as needed. traMADol 50 mg Take 1 tablet by 16 tablet 0 2 Discontinued tabletIndications: mouth every 6 020 020 (Reorder) Generalized abdominal (six) hours as pain, Enteritis, needed for Pain Colitis (scale 7-10). dicyclomine 20 mg Take 1 tablet by 20 tablet 0 2 Discontinued tabletIndications: mouth every 6 020 020 (Therapy completed) Acute febrile illness (six) hours as needed for Abdominal pain. ondansetron (ZOFRAN) 4 Take 1 tablet by 12 tablet 0 06/12/2 Discontinued mg tabletIndications: mouth every 8 020 020 (Therapy completed) Acute febrile illness (eight) hours as needed for Nausea and Vomiting (N/V). documented as of this encounter (statuses as of 07/23/2019) Active Problems Problem Noted Date Altered mental [...] as of this encounter (statuses as of 07/23/2019) Immunizations Name Administration Dates Next Due HEP [...] Sign Reading Time Taken Comments Blood Pressure 128/80 06/21/2019 8:36 AM DUPLICATING MACHINE MECHANIC Pulse 69 06/21/2019 8:35 AM DUPLICATING MACHINE MECHANIC Temperature 36.9 C (98.5 F) 06/21/2019 8:35 AM DUPLICATING MACHINE MECHANIC Respiratory Rate - - Oxygen Saturation 98% 06/21/2019 8:35 AM DUPLICATING MACHINE MECHANIC Inhaled Oxygen Concentration - - Weight 83.7 kg (184 lb 8 oz) 06/21/2019 8:35 AM DUPLICATING MACHINE MECHANIC Height 174.5 cm (5' 8.7") 06/21/2019 8:35 AM DUPLICATING MACHINE MECHANIC Body Mass Index 27.48 06/21/2019 8:35 AM DUPLICATING MACHINE MECHANIC documented in this encounter Progress Notes Gladis Couch MD - 06/21/2019 11:00 AM CST Transplant Hepatology Clinic Note Date: 06/21/2019 10:11 MELD: MELD-Na score: 22 at 05/15/2019 5:33 AM MELD score: 22 at 05/15/2019 5:33 AM Calculated from: Serum Creatinine: 0.78 mg/dL (Rounded to 1 mg/dL) at 05/15/2019 5:33 AM Serum Sodium: 138 mmol/L (Rounded to 137 mmol/L) at 05/15/2019 5:33 AM Total Bilirubin: 3.1 mg/dL at 05/13/2019 9:08 AM INR(ratio): 2.7 at 05/15/2019 5:30 AM Age: 44 years Blood Group: Chief Complaint: Cirrhosis, hepatocellular cancer History of Present Illness: Stuart Glass is a 44 year old male with history of Cirrhosis, diagnosed in October 2018 when he presented to [facility] with Juandice, fever, weakness, and fatigue. He had paracentesis for large volume ascites but without findings of SBP at the time. He was transferred for his care to [facility] and underwent contrasted imaging which also demonstrated 3cm HCC in the right lobe. He was not referred for inpatient transplant evaluation because was without medical insurance at the time. He has since been able to obtain MedicAid. He presented to [facility] for evaluation for liver transplant. He had MRI of the liver which demonstrated 3cm lesion described above, one other 2cm lesion with severalsmaller (1-1.5cm) LiRADs 5 lesions with total tumor burden measured at just over 11cm (as of MRI from February 2019). He was told on the basis of this MRI finding that he was not a candidate for liver transplantation and was advised to follow-up with oncology for palliative chemotherapy. He did not have any evidence of vascular invasion on imaging nor metastatic disease on CT chest nor bone scan. AFPwas 14.5ng/mL. He was again recently admitted at [facility] with hematemesis, Klebsiella bacteremia, and SBP. EGD demonstrated varices with stigmata of recent bleeding for which he underwent banding. Repeat EGD obtained May 2019 indicated small varices. He was started on daily antibiotic prophylaxis for SBP. After discharge he was referred to our clinic for transplant evaluation by Dr. January Mahmood. Todayhe is without complaint apart from symptoms of generalized fatigue. His mentation is at baseline. Heis very jaundiced. LIVER DISEASE COMPLICATIONS: Ascites Jaundice Encephalopathy Varices with bleeding CURRENT SYMPTOMS OF LIVER DISEASE: No Abdominal Pain, Joint Swelling/Pain, Rash, Pruritus, or Sicca symptoms. LIVER DISEASE RISK FACTORS: Alcohol quit in October 2018 No injection drugs, cocaine, tattoos, piercings, obesity, diabetes, hyperlipidemia or metabolic syndrome. PREVIOUS INVESTIGATIONS: U/S (): CT (06/21/19): The liver at segment VIII has a peripheral 3.1 cm nodular mass worrisome for HCC, has similar volume compared to prior exams, Li-RADS 4. Exam was incomplete due to short arterial Phase. MRI abd with and without contrast (03/14/19): Cirrhotic morphology of the liver. Arterially enhancing lesions with washout and pseudocapsule, consistent with hepatocellular carcinoma, measure (all seen on axial postcontrast arterial series): *3.1 x 3 cm in segment VIII (image 34) *2.1 x 1.3 cm in segment VIII (image 34) Arterially enhancing lesions with washout, suspicious for hepatocellular carcinoma, measure (all seen on axial postcontrast arterial series): *1.2 x 0.8 cm in segment VII (image 32) *1.4 x 1.2 cm in segment IVB (image 57) *1.5 x 1.3 cm in segment (image 60) *1.4 x 0.9 cm in segment V (image 66) *0.9 x 1.2 cm in segment V (image 69) Bone scan (03/14/19): Focally increased tracer activity in the ribs is most consistent with previous rib fractures. No definite evidence of osseous neoplasm. Degenerative changes of the axial and appendicular skeleton. CT chest no contrast (03/14/19): No metastases in the chest EGD (05/01/19): Four columns of non-bleeding grade II varices were found in the middle third of theesophagus and in the lower third of the esophagus,. They were medium in size. Red yanira signs were present. Seven bands were successfully placed with incomplete eradication of varices. There was no bleeding during and at the end of the procedure. Moderate portal hypertensive gastropathy was found in the gastric body. The duodenal bulb and second portion of the duodenum were normal. EGD (05/29/19): Grade I varices were found in the lower third of the esophagus. They were small in size. LA Grade A (one or more mucosal breaks less than 5 mm, not extending between tops of 2 mucosal folds) esophagitis with no bleeding was found at the gastroesophageal junction. Mild, diffuse portal hypertensive gastropathy was found in the entire examined stomach. The first portion of the duodenum and second portion of the duodenum were normal. Colonoscopy (): MRCP / ERCP (): VACCINATION STATUS: Past Medical History: He Past Medical History: Diagnosis Date Ascites Chronic back pain Cirrhosis Hyponatremia Liver mass 2018 Past Surgical History: He has a past surgical history that includes [address]8944 - [place] ANESTH,KNEE AREA SURGERY (2015); esophagogastroduodenoscopy (N/A, 05/01/2019); and esophagogastroduodenoscopy (N/A, 05/29/2019). Social History: His reports that he has never smoked. He has never used smokeless tobacco. He stopped drinking alcohol in October 2018 after diagnosis of cirrhosis. He reports that he does not use drugs., , Family History: He family history includes Diabetes in his father; Hypertension in his mother. Allergies: has No Known Allergies. Medications: Prior to Admission Medications: (Not in a hospital admission) Scheduled Medications: Current Outpatient Medications Medication Sig Dispense Refill dicyclomine 20 mg tablet Take 1 tablet by mouth every 6 (six) hours as needed for Abdominal pain. 20 tablet 0 ondansetron (ZOFRAN) 4 mg tablet Take 1 tablet by mouth every 8 (eight) hours as needed for Nausea and Vomiting (N/V). 12 tablet 0 traMADol 50 mg tablet Take 1 tablet by mouth every 6 (six) hours as needed for Pain (scale 7-10). 16 tablet 0 HYDROcodone-acetaminophen 10-325 mg tablet Take 1 tablet by mouth every 6 ( six) hours as needed. THIAMINE HCL ORAL Take by mouth. furosemide 40 mg tablet Take 1 tablet by mouth daily. 90 tablet 0 Magnesium 250 mg Tab Take 1 tablet by mouth 3 (three) times daily. 270 tablet 0 methocarbamol 500 mg tablet Take 1 tablet by mouth 3 (three) times daily as needed for Pain (scale 1-3). 18 tablet 0 cyclobenzaprine 5 mg tablet Take 1 tablet by mouth 3 (three) times daily. 15 tablet 0 sucralfate 100 mg/mL suspension Take 10 mL by mouth as needed (esophageal pain). 480 mL 0 carisoprodol (SOMA) 350 mg tablet Take [...] mg tablet, extended release 24 hr Take 300 mg by mouth 2 ( two) times daily as needed for Pain (scale 4-6). HYDROXYZINE HCL ORAL Take 50 mg by mouth every 6 (six) hours as needed for Other (anxiety). jwjirahu-isij-KW-calcium-mins 9 mg iron-400 mcg tablet Take 1 [...] 2 (two) times daily.) 30 tablet 12 No current facility-administered medications for this visit. Review of Systems: General: No recent fever or chills HEENT: No visual disturbances, hearing loss CVS: No angina, palpitations Resp: No dyspnea, asthma GI: No dysphagia, odynophagia : No dysuria, hematuria Musculoskeletal: No joint swelling, joint pain Derm: Juandice Neuro: No seizures nor stroke Endo: No diabetes nor thyroid disease Heme: No abnormal bruising nor bleeding Allergy: No urticaria, allergic rash, nor recurrent infections Psych: No depression, anxiety, nor mood swings Physical Exam: Temp: [36.9 C (98.5 F)] Pulse: [69] BP: (128-131)/(80-82) @LASTSAO2(3)@ @IOBRIEF@ @WEIGHTCHANGE@ General: Alert, awake, calm, in no acute respiratory distress Skin: vascular spiders, juandice Head: normocephalic, atraumatic Eyes: icteric sclerae, pale conjunctivae Mouth/Throat: no bleeding from mucous membranes, no oropharyngeal ulcers Lungs: no crackles nor wheeze Heart: regular rate and rhythm, normal S1 and S2, no murmur, gallop or rub Abdomen: soft, nondistended, nontender, no palpable liver or spleen Neurological: no asterixis nor tremor Psychiatric: oriented to place, time, and person, normal affect. Labs: Recent Labs 06/02/19204006/07/19 0706/12/19 0124 WBC 6.71 8.55 5.92 HGB 8.4* 8.6* 9.2* HCT 24.7* 25.5* 26.8* PLT 87* 84* 77* MCV 103.3* 103.7* 99.6* MONOPCT 12.4 16.6 15.4 Recent Labs 06/02/19204006/07/19 0727 06/12/19 0124 NA 136 138 133* K 4.7 5.1* 4.2 CL 103 108 102 TCO2 24 22* 24 BUN 21 28* 11 CREAT 1.28* 1.36* 1.03 GLU 193* 132* 133* Recent Labs 11/20/18 0017 11/21/18 0055 05/01/19 1233 05/12/19 1357 05/12/19 1515 05/15/19 0530 06/02/19 2041 06/07/19 0727 06/12/19 0124 ALKPHOS 263* 294* < > -- < > 227* -- < > -- 278* 304* 271* BILIT 6.5* 6.3* < > -- < > 5.7* -- < > -- 4.6* 3.6 * 3.4* BILIUNCON 1.7* 1.6* -- -- -- 2.5* -- -- -- -- -- -- TPRO 7.5 7.5 < > -- < > 7.0 -- < > -- 7.1 7.2 7.3 ALB 2.3* 2.3* < > -- < > 2.7* -- < > -- 3.1* 2.9* 3.0* ALT 29 27 < > -- < > 72* -- < > -- 62* 56* 59* AST 64* 66* < > -- < > 72* -- < > -- 72* 59* 75* PTINR 2.7 2.6 < > 2.4 -- -- 2.6 -- 2.7 -- -- -- < >=values in this interval not displayed. New Imaging: Cultures: Urine: Blood: Assessment/Plan: 1. Cirrhosis: Atttributed to EtOh. His disease is decompensated by ascites, SBP , encephalopathy, bleeding varices, and liver cancer. His MELD is high at 20. He was declined listing at [facility] becausehis total tumor burden exceeded listing for exception points. 2. Hepatocellular cancer: MRI from [facility] indicated multiple 1-1.5cm LiRADs 5 lesions which put his tumor burden over 11cm. His largest lesions were 3.1 and 2.1cm. He had no evidence of extrahepaticdisease. He had no evidence of vascular involvement. Our triple phase CTs have only ever demonstrated the 3.1cm LiRADs 5 lesion in segment 8. His most recent triple phase CT was incomplete because the arterial phase was "clipped". We will need to review in radiology conference but will present on Monday. 3. Portal hypertension: Manifested by splenomegaly/ hypersplenism, ascites, encephalopathy, and bleeding from varices. 4. Variceal bleeding: Scoped for presentation of hematemesis 05/01/2019 and found to have large varices with stigmata of bleeding. Repeat EGD 05/29/2019 indicated small varices. We will repeat EGD in August 2019. 5. Ascites: Complicated by SBP. He needs to daily prophylaxis with ciprofloxacin 500mg daily. Continue lasix and aldactone. 6. Encephalopathy: [place] grade 0. Continue lactulose, rifaximin, zinc supplementation. 7. Chronic pain syndrome: Patient has multiple medications listed on his JUN for MSK type pain, including hydrocodone, tramadol, soma, robaxin, flexeril, gabapentin. This raises the concern for dependence and risk of recidivism post transplant. We will need to clarify exactly what it is that he is taking and will request evaluation by our social media coordinator. 8. Disposition: Given high MELD and findings of tumor burden on imaging, we will proceed with urgenttransplant evaluation. Much of his eval testing has been done at [facility] already. We will review his images in tumor board but will proceed with surgical evaluation and social media coordinator evaluation RUPERT so we may present him on Monday. He will get repeat CT triple phase today. Signed: Gladis Couch MD Gastroenterology/ Transplant Hepatology Pager [phone] 06/21/2019 10:11 eVronica Mendieta RN - 06/21/2019 11:00 AM CSTPatient identified by name and . Family at side. Patient denies any complaints and no distress noted. documented in this encounter Plan of Treatment Date Type Specialty Care Team Description 08/28/2019 Appointment Cardiac Photographer Apprentice Provider, Clc Cardiac 2, Clc Cardiac Proc [...] ID Effective Phone Address Type Group Dates [facility] [id number] 2019-Pres [phone] [employer] HMO ent [phone] [place] [address] [facility] xxxxxxxxx 2019-/ Medicaid HEALTHCARE COMM PLAN - MANAGED MEDICAID documented as of this encounter
--- OUTSIDE RECORDS SUMMARY | 2019-07-28 07:37 | XMS REPORT | Summary of Care ---
:1975 Author Organization [facility] Address [address] [place] [address] Care Team Providers Name Role Phone Сергей Dailey Sohail Primary Care Provider Reason for Visit Reason Comments New Evaluation Encounter Details Date Type Department Care Team Description 06/21/2019 Office Visit [facility] Iza, Pre-transplant Transplant-[place] MD Gladis evaluation for Multispecialty Ctr [address] [facility] chronic liver [address] [facility] S disease (Primary Dx) [place] [id number] [phone] Allergies No Known Allergiesdocumented as of this [...] mg tablet mouth 2 (two) times daily. qulvepur-fvnl-IJ-calci Take 1 tablet by 0 Active um-mins [...] Comments Blood Pressure 128/80 06/21/2019 8:36 AM SECONDS HANDLER Pulse 69 06/21/2019 8:35 AM SECONDS HANDLER Temperature 36.9 C (98.5 F) 06/21/2019 8:35 AM SECONDS HANDLER Respiratory Rate - - Oxygen Saturation 98% 06/21/2019 8:35 AM SECONDS HANDLER Inhaled Oxygen Concentration - - Weight 83.7 kg (184 lb 8 oz) 06/21/2019 8:35 AM SECONDS HANDLER Height 174.5 cm (5' 8.7") 06/21/2019 8:35 AM SECONDS HANDLER Body Mass Index 27.48 06/21/2019 8:35 AM SECONDS HANDLER documented in this encounter Progress Notes Gladis [...] in October 2018 when he presented to [facility] with Juandice, fever, weakness, and fatigue. He had paracentesis for large volume ascites but without findings of SBP at the time. He was transferred for his care to [facility] and underwent contrasted imaging which also demonstrated 3cm HCC in the right lobe. He was not referred for inpatient transplant evaluation because was without medical insurance at the time. He has since been able to obtain MedicAid. He presented to [facility] for evaluation for liver transplant. He [...] 14.5ng/mL. He was again recently admitted at [facility] with hematemesis, Klebsiella bacteremia, and [...] has a past surgical history that includes 57214 - [place] ANESTH,KNEE AREA SURGERY (2015); esophagogastroduodenoscopy (N/A, 05/01/2019); [...] (six) hours as needed for Other (anxiety). mbjbtyoz-kerv-EC-calcium-mins 9 mg iron-400 mcg tablet Take 1 [...] at 20. He was declined listing at [facility] becausehis total tumor burden exceeded listing for exception points. 2. Hepatocellular cancer: MRI from [facility] indicated multiple 1-1.5cm LiRADs 5 lesions which [...] and will request evaluation by our social director. 8. Disposition: Given high MELD and findings of tumor burden on imaging, we will proceed with urgenttransplant evaluation. Much of his eval testing has been done at [facility] already. We will review his images in tumor board but will proceed with surgical evaluation and social director evaluation RUPERT so we may present him on Monday. He will get repeat CT triple phase today. Signed: Gladis Couch MD Gastroenterology/ Transplant Hepatology Pager [phone] 06/21/2019 10:11 eronica Mendieta RN - 06/21/2019 11:00 AM CSTPatient identified by name and . Family at side. Patient denies any complaints and no distress noted. documented in this encounter Plan of Treatment Date Type Specialty Care Team Description 08/28/2019 Appointment Cardiac Environmental Field Professional Provider, Clc Cardiac 2, Clc Cardiac Proc [...] ID Effective Phone Address Type Group Dates [facility] [id number] 2019-Pres [phone] [address] [employer] HMO ent [phone] [place] [address] [facility] xxxxxxxxx 2019-/ Medicaid HEALTHCARE COMM PLAN - MANAGED MEDICAID documented as of this encounter
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
--- OUTSIDE RECORDS SUMMARY | 2019-07-28 07:38 | XMS REPORT | Summary of Care ---
:1975 Author Organization [facility] Address [address] [place] [address] Care Team Providers Name Role Phone Сергей Dailey Primary Care Provider Reason for Referral (Routine) Status Reason Specialty Diagnoses / Referred By Referred To Procedures Contact Contact New Request Diagnostic Diagnoses HCC (hepatocellular carcinoma) Iza, Radiology Procedures CONSULT INTERVENTIONAL RADIOLOGY MD Gladis [address] [place] [address] (Routine) Status Reason Specialty Diagnoses / Referred By Referred To Procedures Contact Contact New Request Psychiatry Diagnoses Mental and behavioral problem in adult Gladis Couch, Procedures CONSULT/REFERRAL PSYCHIATRY ADULT [address] [place] [address] Reason for Visit Reason Comments Orders Encounter Details Date Type Department Care Team Description 07/25/2019 Case Management [facility] Gladis Couch Orders [facility] [facility] [address] [place] [phone] Allergies No Known Allergiesdocumented as of [...] mg tablet mouth 2 (two) times daily. eabyrcpg-oqcw-OU-calcium- Take 1 tablet by 0 Active mins [...] Specialty Care Team Description 08/28/2019 Appointment Cardiac Quill Stripper Yandel Jaeger MD [address] [place] [address] [place] [address] [phone] Provider, Shell Cardiac 2, Clc Cardiac Proc [...] - Primary Malignant neoplasm of liver, primary Mental and behavioral problem in adult documented in this encounter Insurance Payer Benefit Plan / Subscriber ID Effective Dates Phone Address Type Group BCBS OF HIM BCBS BLUE [id number] 2019-Thelma [phone] [id number] [place] [address] documented as of this encounter
--- OUTSIDE RECORDS SUMMARY | 2019-07-28 07:38 | XMS REPORT | Summary of Care ---
:1975 Author Organization [facility] Address [address] [place] [address] Care Team Providers Name Role Phone Сергей Dailey Sohail Primary Care Provider Encounter Details Date Type Department Care Team Description 07/25/2019 Committee Review [facility] Gladis Couch, Trans[facility] [facility] [address] [place] [address], [place] [address] [phone] Allergies No Known Allergiesdocumented as of this [...] mg tablet mouth 2 (two) times daily. lglpazwo-cjsf-KX-calcium- Take 1 tablet by 0 Active mins [...] Specialty Care Team Description 08/28/2019 Appointment Cardiac Shoe Lacer Yandel Jaeger MD [address] [place] [address] [place] [address] Provider, Clc Cardiac 2, Clc Cardiac Proc [...] Type Group BCBS OF HIM BCBS BLUE [id number] 2019-[place] [phone] P O BOX HMO [facility] t 7 [id number] [place] [address] documented as of this encounter
--- OUTSIDE RECORDS SUMMARY | 2019-07-28 07:38 | XMS REPORT | Summary of Care ---
:1975 Author Organization [facility] Address [address] [place] [address] Care Team Providers Name Role Phone DaileyMianСергей Sohail Primary Care Provider Reason for Referral MRI/CAT Scan (Routine) Status Reason Specialty Diagnoses / Referred By Referred To Procedures Contact Contact Authorized Diagnostic Diagnoses Transient alteration of awareness [place], Radiology Procedures CT HEAD W CONTRAST MD Gladis [address] [place] [address] Reason for Visit Reason Comments Erroneous encounter-disregard Erroneous encounter-disregard Encounter Details Date Type Department Care Team Description 07/17/2019 Case Management [facility] [place], Erroneous Transplant-[place] MD Gladis encounter-disregard [facility] [address] [place] [address] ; Erroneous [address] [place] [address] [place] [phone] Allergies No Known Allergiesdocumented as of this [...] mg tablet mouth 2 (two) times daily. hqdcmrlj-oyet-WV-calc Take 1 tablet 0 Active ium-mins 9 mg by mouth daily. iron-400 mcg tablet HYDROXYZINE HCL ORAL Take 50 mg by 0 Active mouth every 6 (six) hours as needed for Other (anxiety). ergocalciferol, Take 50,000 0 Active vitamin d2, (VITAMIN Units by mouth D2) 50,000 unit weekly. capsule escitalopram oxalate Take 20 mg by 0 Active (LEXAPRO) 20 mg mouth daily. tablet carisoprodol (SOMA) Take 350 mg by 0 Active 350 mg tablet mouth 4 (four) times daily as needed for Insomnia. folic acid 0.8 mg Cap Take 1 capsule 0 Active by mouth daily. sucralfate 100 mg/mL Take 10 mL by 480 mL 0 05/02/19 Active suspensionIndications mouth as needed 20 : Acute upper GI (esophageal bleed pain). furosemide 40 mg Take 1 tablet [...] 30 mL by 500 mL 12 01/23/20 07/19/19 Discontinued mL mouth 2 (two) 19 20 (Reorder) solutionIndications: times daily. Chronic liver failure without hepatic coma gabapentin ER 300 mg Take 600 mg by 0 07/19/19 Discontinued tablet, extended mouth 3 (three) 20 release 24 hr times daily. zinc sulfate Take by mouth. 0 07/19/19 Discontinued (ZINC-220 ORAL) 20 HYDROcodone-acetamino Take 1 tablet 0 07/19/19 Discontinued phen 10-325 mg tablet by mouth every 20 6 (six) hours as needed. documented as [...] encounter Progress Notes Blanka Wallis RN - 07/17/2019 11:13 AM CDT This encounter was opened in error. Please disregard. documented in this encounter Plan of Treatment Date Type Specialty Care Team Description 08/28/2019 Appointment Cardiac Fish Conservationist Provider, Clc Cardiac 2, Clc Cardiac Proc Room Name Type Priority Associated Diagnoses Order Schedule CT HEAD W CONTRAST IMAGING Routine Transient alteration of Expected: 2019, awareness Expires: 07/16/2020 Health Maintenance Due Date Last Done Comments DTaP,Tdap,and Td Vaccines (1 - Tdap) 1986 PNEUMOCOCCAL 0-64 YEARS COMBINED SERIES (2 01/16/2019 11/21/2018 of 3 - PPSV23) INFLUENZA VACCINE Completed 12/23/2018, 01/22/2018 documented as of this encounter Results Not on filedocumented in this encounter Visit Diagnoses Diagnosis Transient alteration of awareness - Primary ERRONEOUS ENCOUNTER--DISREGARD documented in this encounter Insurance Payer Benefit Plan / Subscriber ID Effective Dates Phone Address Type Group BCBS OF HIM BCBS LIA [id number] 2019-Thelma [phone] [address] O BOX [facility] [id number] [place] [address] documented as of this encounter
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
--- OUTSIDE RECORDS SUMMARY | 2019-07-28 07:39 | XMS REPORT | Summary of Care ---
:1975 Author Organization [facility] Address [address] [place] [address] Care Team Providers Name Role Phone Сергей Dailey Primary Care Provider Reason for Referral MRI/CAT Scan (Routine) Status Reason Specialty Diagnoses / Referred By Referred To Procedures Contact Contact New Request Diagnostic Diagnoses HCC (hepatocellular carcinoma) Iza, Radiology Procedures CT ABDOMEN PELVIS W WO CONTRAST MD Gladis [address] [place] [address] Reason for Visit Reason Comments Orders Encounter Details Date Type Department Care Team Description 07/26/2019 Case Management [facility] Gladis Couch Orders [facility] [facility] [address] [place] [phone] Allergies No Known Allergiesdocumented as of this [...] mg tablet mouth 2 (two) times daily. hyjeksiu-ydfq-FX-calcium- Take 1 tablet by 0 Active mins [...] Specialty Care Team Description 08/28/2019 Appointment Cardiac Data Mining Analyst Yandel Jaeger MD [address] [place] [address] [address] [place] [address] Provider, Shell Cardiac 2, Clc Cardiac Proc Room Name Type Priority Associated Diagnoses Order Schedule CT ABDOMEN PELVIS W WO IMAGING Routine HCC (hepatocellular Expected: 2019, CONTRAST carcinoma) Expires: 07/25/2020 Health Maintenance Due Date Last Done Comments [...] Type Group BCBS OF HIM BCBS BLUE [id number] 2019-Thelma [phone] P O BOX HMO [facility] t 7 [id number] [place] [address] documented as of this encounter
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
[2019-07-28 07:46] LABS: Albumin 2.4 g/dL (3.4-5.0); Bilirubin Direct 2.7 mg/dL (0-0.2); Bilirubin Total 4.8 mg/dL (0.2-1.0); Potassium 3.5 mmol/L (3.5-5.1); Protein, Total 8.5 g/dL (6.4-8.2)
[2019-07-28] MEDS ORDERED: ONDANSETRON 4 MG/2 ML VIAL ONE (07:59)
[2019-07-28] MEDS ORDERED: MORPHINE 4 MG/ML SYR ONE (07:59)
[2019-07-28 08:27] LABS: Protime INR 2.18
[2019-07-28 08:30] LABS: Barbiturates NEGATIVE (NEGATIVE); Benzodiazepines NEGATIVE (NEGATIVE); Cocaine NEGATIVE (NEGATIVE); METHAMPHETAM NEGATIVE (NEGATIVE); Methadone NEGATIVE (NEGATIVE); Opiates POSITIVE (NEGATIVE); Phencyclidine NEGATIVE (NEGATIVE); THC Cannibis NEGATIVE (NEGATIVE)
[2019-07-28 08:59] LABS: Urine Blood TRACE (NEG); Urine Glucose NEGATIVE (NEG); Urine Protein NEGATIVE (NEG)
[2019-07-28 09:04] LABS: Magnesium 1.6 mg/dL (1.8-2.4); Troponin (Emerg Dept Use Only) 0.03 ng/mL (0.0-0.045)
--- NOTE | 2019-07-28 09:05 | ER ---
Nurse's Notes [facility] Name: Stuart Glass Age: 44 yrs Sex: Male : 1975 Arrival Date: 07/28/2019 Time: 06:53 Bed 6 Private MD: Diagnosis: Pain in right leg-neuropathy;Pain in left leg-neuropathy;Weakness Presentation: 07/27 07:05 Chief complaint: EMS states: HIS CALLED IN FOR GENERAL WEAKNESS. AND IS rv COMPLAINING OF PAIN ON BOTH FEET. WITH HISTORY OF NEUROPATHY AND LIVER CANCER. Coronavirus screen: Proceed with normal triage. Ebola Screen: No symptoms or risks identified at this time. Initial Sepsis Screen: Does the patient meet any 2 criteria? No. Patient's initial sepsis screen is negative. Does the patient have a suspected source of infection? No. Patient's initial sepsis screen is negative. Risk Assessment: Do you want to hurt yourself or someone else? Patient reports no desire to harm self or others. Onset of symptoms was July 28, 2019 at 06:00. 07:05 Method Of Arrival: EMS: [facility] rv 07:05 Acuity: [place] 3 rv Triage Assessment: 07:08 General: Appears in no apparent distress. Behavior is calm, cooperative. Pain: rv Complains of pain in right foot and left foot Pain currently is 10 out of 10 on a pain scale. Historical: - Allergies: 07:08 No Known Allergies; rv - PMHx: 07:08 Cirrhosis; tumors on liver; LIVER CANCER; NEUROPATHY; rv - Immunization history:: Adult Immunizations up to date, Pneumococcal vaccine is up to date, Flu vaccine is up to date. - Social history:: Smoking status: Patient denies any tobacco usage or history of. Screenin:10 Abuse screen: Denies threats or abuse. Nutritional screening: No deficits noted. em Tuberculosis screening: No symptoms or risk factors identified. Fall Risk None identified. Assessment: 07:10 General: Appears in no apparent distress. comfortable, Behavior is calm, cooperative, em Reports fatigue for 2-3 days, hx of neuropathy and liver CA Denies fever. Pain: Complains of pain in left foot and right foot Pain currently is 10 out of 10 on a pain scale. Neuro: Level of Consciousness is awake, alert, obeys commands, Oriented to person, place, time, situation, Appropriate for age. Cardiovascular: Capillary refill < 3 seconds Patient's skin is warm and dry. Rhythm is sinus tachycardia. Respiratory: Reports cough that is Airway is patent Respiratory effort is even, unlabored, Respiratory pattern is regular, symmetrical. GI: Abdomen is flat, Patient currently denies nausea, vomiting. EENT: Sclera/Cornea jaundiced . Derm: Skin is intact, is healthy with good turgor, Skin is jaundiced. Musculoskeletal: Capillary refill < 3 seconds, Range of motion: intact in all extremities, Swelling absent. 08:11 Reassessment: pt reports he wants to get morphine and leave, also request to speak with em provider, AMANDA Diego notified of pt requests. 08:30 Reassessment: Patient appears in no apparent distress at this time. pt request pain em medication prior to discharge, provider notified. Vital Signs: 07:05 BP 150 / 76; Pulse 105; Resp 19; Temp 98.5; Pulse Ox 97% ; Weight 83.91 kg; Height 5 rv ft. 9 in. (175.26 cm); Pain 10/10; 08:18 BP 150 / 84; Pulse 101; Resp 18; Pulse Ox 99% on R/A; em 07:05 Body Mass Index 27.32 (83.91 kg, 175.26 cm) rv ED Course: 06:53 Patient arrived in ED. ds1 06:54 Johnathon Gore NP is PHCP. pm1 06:54 Fernando Darnell MD is Attending Physician. pm1 07:00 Initial lab(s) drawn, by ED staff, sent to lab. Inserted saline lock: 22 gauge in right em antecubital area, using aseptic technique. Blood collected. 07:04 Robel Yun, RN is Primary Nurse. em 07:07 Triage completed. rv 07:08 Arm band placed on Patient placed in the treatment room, on a stretcher, Patient rv notified of wait time. 07:10 Patient has correct armband on for positive identification. Bed in low position. Call em light in reach. Pulse ox on. NIBP on. 08:10 Urine collected: clean catch specimen, clear, EKG done, by ED staff, reviewed by em Johnathon Gore NP. 08:21 Chest Single View XRAY In Process Unspecified. EDMS 09:10 No provider procedures requiring assistance completed. IV discontinued, intact, em bleeding controlled, No redness/swelling at site. Pressure dressing applied. Administered Medications: 09:02 Drug: Zofran (Ondansetron) 4 mg Route: IVP; Site: right antecubital; em 09:10 Follow up: Response: Medication administered at discharge. em 09:04 Drug: morphine 4 mg Route: IVP; Site: right antecubital; em 09:10 Follow up: Response: Medication administered at discharge. em Outcome: :04 Discharge ordered by MD. pm1 09:10 Discharged to home via wheelchair. em 09:10 Condition: stable 09:10 Discharge instructions given to patient, Instructed on discharge instructions, follow up and referral plans. Demonstrated understanding of instructions, follow-up care. 09:11 Patient left the ED. em Signatures: Dispatcher [employer] Robel Driscoll RN RN em Renae Stanley ds1 Johnathon Gore, CHEMIST INTERNSHIP CHEMIST INTERNSHIP pm1 Ruben Crystal RN RN rv
--- NOTE | 2019-07-28 09:05 | EDPHYS ---
Physician Documentation [facility] Name: Stuart Glass Age: 44 yrs Sex: Male : 1975 Arrival Date: 07/28/2019 Time: 06:53 Bed 6 Private MD: ED Physician Fernando Darnell HPI: 07/27 07:43 This 44 yrs old Male presents to ER via EMS with complaints of General pm1 Weakness. 07:43 Patient presents to the ER with complaints of generalized weakness and bilateral lower pm1 extremity pain. 07:43 Onset: The symptoms/episode began/occurred today. Patient with chronic bilateral lower pm1 extremity pain due to neuropathy. Home pain medications are not working. Patient came to the ER with complaints of generalized weakness and lower extremity pain. Patient's lower leg pain feels just like his neuropathy. He is currently taking gabapentin and tramadol for the pain but it is not effective. He reports a cough that has been present since childhood. No chest pain, shortness of breath or fever. Historical: - Allergies: 07:08 No Known Allergies; rv - PMHx: 07:08 Cirrhosis; tumors on liver; LIVER CANCER; NEUROPATHY; rv - Immunization history:: Adult Immunizations up to date, Pneumococcal vaccine is up to date, Flu vaccine is up to date. - Social history:: Smoking status: Patient denies any tobacco usage or history of. ROS: 07:43 Neck: Negative for injury, pain, and swelling, Cardiovascular: Negative for chest pain, pm1 palpitations, and edema. 07:43 Abdomen/GI: Negative for abdominal pain, nausea, vomiting, diarrhea, and constipation, Back: Negative for injury and pain. 07:43 Skin: Negative for injury, rash, and discoloration. 07:43 Constitutional: Positive for fatigue. 07:43 Constitutional: Negative for body aches, fever, poor PO intake. 07:43 Respiratory: Positive for cough, Negative for shortness of breath, sputum production, wheezing. 07:43 MS/extremity: Positive for pain, of the right foot and left foot, Negative for injury or acute deformity, decreased range of motion, deformity. 07:43 Neuro: Positive for dizziness, Negative for headache, syncope, near syncope, weakness. Exam: 07:43 Constitutional: This is a well developed, well nourished patient who is awake, alert, pm1 and in no acute distress. Head/Face: Normocephalic, atraumatic. Neck: Trachea midline, no thyromegaly or masses palpated, and no cervical lymphadenopathy. Supple, full range of motion without nuchal rigidity, or vertebral point tenderness. No Meningismus. Chest/axilla: Normal chest wall appearance and motion. Nontender with no deformity. No lesions are appreciated. Cardiovascular: Regular rate and rhythm with a normal S1 and S2. No gallops, murmurs, or rubs. No pulse deficits. Respiratory: Lungs have equal breath sounds bilaterally, clear to auscultation and percussion. No rales, rhonchi or wheezes noted. No increased work of breathing, no retractions or nasal flaring. Abdomen/GI: Soft, non-tender, with normal bowel sounds. No distension or tympany. No guarding or rebound. No evidence of tenderness throughout. Back: No spinal tenderness. No costovertebral tenderness. Full range of motion. Skin: Warm, dry with normal turgor. Normal color with no rashes, no lesions, and no evidence of cellulitis. MS/ Extremity: Pulses equal, no cyanosis. Neurovascular intact. Full, normal range of motion. 07:43 Neuro: Orientation: is normal, Motor: is normal, moves all fours. Vital Signs: 07:05 BP 150 / 76; Pulse 105; Resp 19; Temp 98.5; Pulse Ox 97% ; Weight 83.91 kg; Height 5 rv ft. 9 in. (175.26 cm); Pain 10/10; 08:18 BP 150 / 84; Pulse 101; Resp 18; Pulse Ox 99% on R/A; em 07:05 Body Mass Index 27.32 (83.91 kg, 175.26 cm) rv MDM: 06:54 Patient medically screened. pm1 08:31 ED course: Patient wants to go home now prior to report of lab results. Patient wants pm1 to be discharged home with pain medications because Tramadol and gabapentin are not working. 08:31 Data reviewed: vital signs. Data interpreted: Pulse oximetry: on room air is 99 %. pm1 Interpretation: normal. 08:55 ED course: Patient filled Tramadol 50 mg 60 pills with 1 refill on 07/25/2019 and had pm1 soma 120 pills filled on 06/25/2019. Patient reports that he has a pain management physician. Recommended that he should follow up with pain management since his Tramadol and gabapentin are not working. 09:04 ED course: Patient requesting cough medication with narcotic and Phenergan. Informed pm1 patient that he will need to address with pain management. Patient positive for opiates. Current prescriptions on [employer]ATA[employer] CLAIMS SUPERVISOR Aware show Tramadol and soma. No recent opiate prescriptions. 07/27 06:59 Order name: Basic Metabolic Panel; Complete Time: 07:50 pm1 07/27 06:59 Order name: CBC with Diff pm1 07/27 06:59 Order name: Hepatic Function; Complete Time: 07:50 pm1 07/27 07:30 Order name: CBC Smear Scan EDMS 07/27 07:32 Order name: Flu pm07/27 07:32 Order name: ETOH Level; Complete Time: 09:04 pm07/27 06:59 Order name: Chest Single View XRAY pm1 07/27 07:32 Order name: UDS; Complete Time: 08:31 pm1 07/27 07:32 Order name: Magnesium; Complete Time: 09:04 pm07/27 07:32 Order name: NT PRO-BNP; Complete Time: 09:04 pm07/27 07:32 Order name: PT-INR; Complete Time: 08:31 pm1 07/27 07:32 Order name: Troponin (emerg Dept Use Only); Complete Time: 09:04 pm07/27 08:32 Order name: Urine Dipstick--Ancillary (enter results); Complete Time: 09:04 eb 07/27 06:59 Order name: IV Saline Lock; Complete Time: 07:13 pm07/27 06:59 Order name: Labs collected and sent; Complete Time: 07:13 pm07/27 07:32 Order name: Urine Dipstick-Ancillary (obtain specimen); Complete Time: 08:20 pm07/27 07:32 Order name: EKG; Complete Time: 07:33 pm07/27 07:32 Order name: Cardiac monitoring; Complete Time: 07:36 pm07/27 07:32 Order name: EKG - Nurse/Tech; Complete Time: 08:18 pm07/27 07:32 Order name: O2 Per Protocol; Complete Time: 07:36 pm07/27 07:32 Order name: O2 Sat Monitoring; Complete Time: 07:36 pm1 Administered Medications: 09:02 Drug: Zofran (Ondansetron) 4 mg Route: IVP; Site: right antecubital; em 09:10 Follow up: Response: Medication administered at discharge. em 09:04 Drug: morphine 4 mg Route: IVP; Site: right antecubital; em 09:10 Follow up: Response: Medication administered at discharge. em Disposition: 07/28 06:44 Co-signature as Attending Physician, Fernando Darnell MD I agree with the assessment and tw4 plan of care. Disposition: 07/28/19 09:04 Discharged to Home. Impression: Pain in right leg - neuropathy, Pain in left leg - neuropathy, Weakness. - Condition is Stable. - Discharge Instructions: Neuropathic Pain, Weakness, Fatigue. - Medication Reconciliation Form, Thank You Letter, Antibiotic Education, Prescription Opioid Use form. - Follow up: Emergency Department; When: As needed; Reason: Worsening of condition. Follow up: Private Physician; When: 2 - 3 days; Reason: Recheck today's complaints, Continuance of care, Re-evaluation by your physician. - Problem is new. - Symptoms have improved. Signatures: Dispatcher [employer] Robel Driscoll RN RN em Johnathon Gore, MULTIMEDIA PRODUCER MULTIMEDIA PRODUCER pm1 Fernando Darnell MD MD tw4 Ruben Crystal RN RN Corrections: (The following items were deleted from the chart) 07/27 09:11 09:04 07/28/2019 09:04 Discharged to Home. Impression: Pain in right leg - neuropathy; em Pain in left leg - neuropathy; Weakness. Condition is Stable. Forms are Medication Reconciliation Form, Thank You Letter, Antibiotic Education, Prescription Opioid Use. Follow up: Emergency Department; When: As needed; Reason: Worsening of condition. Follow up: Private Physician; When: 2 - 3 days; Reason: Recheck today's complaints, Continuance of care, Re-evaluation by your physician. Problem is new. Symptoms have improved. pm1
[2019-07-28 09:18] VITALS: TEMP 98.5
[2019-07-28 09:19] VITALS: BP 150/84; O2SAT 99
[2019-07-28 09:49] LABS: Anisocytosis 2+; Blood Morphology Comment NOTED (NOT SEEN); Macrocytosis 1+; Platelet Estimate DECR; Urine White Blood Cell Casts OK
--- NOTE | 2019-07-28 11:47 | RAD REPORT ---
EXAM DESCRIPTION: RAD - Chest Single View - 07/28/2019 8:21 am CLINICAL HISTORY: COUGH Chest pain. COMPARISON: Chest Single View dated 05/18/2019 FINDINGS: Portable technique limits examination quality. The lungs are grossly clear. The heart is normal in size. No displaced fractures. IMPRESSION: No acute intrathoracic process suspected.
--- NOTE | 2019-07-29 16:52 | EKG ---
Test Date: 2019-07-28 Test Time: 08:02:40 Blogs Manager: LINDA MEASUREMENT RESULTS: Intervals: Rate: 101 PA: 182 QRSD: 78 QT: 348 QTc: 451 [place]: P: 41 PA: 182 QRS: 39 T: 26 INTERPRETIVE STATEMENTS: Sinus tachycardia Otherwise normal ECG Compared to ECG 05/18/2019 05:42:00 Sinus rhythm no longer present Myocardial infarct finding no longer present Electronically Signed On 07-29-19 16:48:35 CDT by Alonzo Duffy
== END 2019-07-28 09:11 | disposition home or self-care (01) ==
LOC: ER 06:51
DX: M79.605 Pain in left leg (principal); M79.604 Pain in right leg; G62.9 Polyneuropathy, unspecified; Z85.05 Personal history of malignant neoplasm of liver; R53.1 Weakness
CPT/HCPCS: 93005; 85025; 80048; 36415; 80320; 83735; 85610; 80076; 80307 ×8; 81003; 84484; 83880; 87804 ×2; 71045; 96375; 96374; 99285; J2405

== ENCOUNTER 2019-08-09 01:22 | Emergency (ER) | payer BC ==
--- OUTSIDE RECORDS SUMMARY | 2019-08-09 01:32 | XMS REPORT ---
:1975 Author Organization [facility] t Address [address] [place] [address] Care Team Providers Name Role Phone RICARDO CERVANTES Unavailable Unavailable MERCEDES ELENA Unavailable Unavailable Problems Condition Condition Condition Status Onset Resolution Last Treatin g Comments Name Details Category Date Date Treatment Clinician Date Insomnia, Insomnia, Problem Active unspecified unspecified type type History of History of Problem Active alcohol alcohol abuse abuse Seasonal Seasonal Problem Active allergies allergies Erectile Erectile Problem Active dysfunction dysfunction , , unspecified unspecified erectile erectile dysfunction dysfunction type type Generalized Generalized Problem Active anxiety anxiety disorder disorder Alcoholic Alcoholic Problem Active cirrhosis cirrhosis of liver of liver with with ascites ascites Other Other Problem Active chronic chronic pain pain Current Current Problem Active 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 Medications Ordered Filled Start Stop Current Ordering Indication Dosage Frequency Signature Comments Components Medication Medication Date Date Medication? Clinician (SIG) Name Name Lasix Lasix Yes Yuniel 1 tablet Dailey Folic Acid Folic Acid Yes Yuniel 1 tablet Dailey HydrOXYzine HydrOXYzine Yes Yuniel 1 capsu le Pamoate Pamoate Dailey as needed Lidoderm Lidoderm Yes Yuniel 1 patch Dailey remove after 12 hours Spironolact Spironolact Yes Yuniel 1 table t one one Dailey Trazodone Trazodone Yes Yuniel 1 tablet HCl HCl Dailey at bedtime as needed Lactulose Lactulose Yes Yuniel 15 ml Dailey Xifaxan Xifaxan Yes Yuniel 1 tablet Dailey Multi Multi Yes Yuniel 1 tablet Vitamin Vitamin Dailey Escitalopra Escitalopra Yes Yuniel 1 table t m Oxalate m Oxalate Dailey Vitamin D3 Vitamin D3 Yes Yuniel 1 capsule Dailey Omeprazole Omeprazole Yes Yuniel 1 capsule Dailey 30 minutes before morning meal Carisoprodo Carisoprodo Yuniel (schedu le l l 05-07 Dailey iv drug) 00:00 take one :00 -1 tablet(s) by mouth every six hours as needed for spasm. Encounters Start End Encounter Admission Attending Care Care Encounter Date/Time Date/Time Type Type Clinicians Facility Department ID 2019-07-30 2019-07-30 [facility] [id number] 15:00:00 15:00:00 [facility] 2019-07-30 2019-07-30 [facility] [id number] 10:45:00 10:45:00 [facility] 2019-07-25 2019-07-25 [facility] [id number] 15:27:00 15:27:00 [facility] 2019-07-10 2019-07-10 [facility] [id number] 10:58:00 10:58:00 [facility] 2019-07-04 2019-07-04 [facility] [id number] 15:20:00 15:20:00 [facility] 2019-06-26 2019-06-26 [facility] [id number] 10:03:00 10:03:00 [facility] 2019-06-13 2019-06-13 [facility] [id number] 07:46:00 07:46:00 [facility] 2019-06-05 2019-06-05 [facility] [id number] 15:15:00 15:15:00 [facility] Medicine Results Test Description Test Time Test Comments Text Results Atomic Results Result Comments BONE AND/OR 2019-03-19 Referring: FINAL REPORT PATIENT ID: [facility], 17:24:00 Yuniel Dailey [id number] PROCEDURE: B ONE WHOLE BODY SCAN, WHOLE BODY CPT CODE: 17297 INDICATION: Hepatocellular carcinoma C22.0, preoperative evaluati on for liver transplant Z01.818 PROTOCOL: 21.0 mCi of Tc-99m MDP was injected intravenously. Whole body an d selected spot images were obtained approximately 3 gale rs later. FINDINGS: The re is focally increased tracer activity in the right sevent h through ninth ribs at the costochondral junctions. The re is focally, moderately increased tracer activity in the posterior left seventh a nd eighth ribs and right sixth rib.Tracer activity is increased in the in the knee s, ankles/feet, and sternoclavicular and acromioclavicular joints. Irregular tracer activity in the thoracic spine. IMPRESSION: 1.Focally increased tracer activity in the ribs is most consistent with previous rib fractures.2.No definite evidence of osseous neoplasm.3.Degenerative mattson ges of the axial and appendicula r skeleton. Images for comparison/correlation were CT of the chest dated 9. Signed: Jackie Patricioepo rt Verified Date/Time: 019 17:24:54 Reading Location: [address] T3 2019-03-15 17:05:00 Test Item Value Reference Range Comments T3 TOTAL ([place]) (test code = 656) 65 ng/dL 48-159 RAD, BONE DENSITY [id number] 15:06:00Referring: Dr. Yuniel Loza for Exam:->HCC,ETOH,CIRRHOSIS, PRE TRANSPLANT EVALUATIONFINAL REPORT Bone density study, 03/14/2019 Clinical History: Screening Bone mineral density measurementLumbar spine1.384 gm/pw7Ompujvr neck1.092 gm/cm2 Standard deviation from young adult [...] Diagnostic criteria for osteoporosisBMD: Bone mineral density Normal: BMD measurement less than one standard deviation from young adult populationOsteopenia: BMD measurement between 1 and 2.5 standard deviationsOsteoporosis: BMD measurement greater than 2.5 standard deviations Severe osteoporosis: Osteoporosis and one or more fragility fractures Signed: Dona Naqvi Verified Date/Time: 03/15/2019 15:06:54 Reading Location: [address] Mammo Reading Room HEPATITIS A ANTIBODY, [id number] 14:48:00 Test Item Value Reference Range Comments HEPATITIS A IGG ANTIBODY (BEAKER) (test code = Reactive N onreactive 9905) CT, CHEST, WITHOUT [id number] 14:22:00Referring: Dr. Yuniel OliveiraINAL REPORT TECHNIQUE: CT [...] seventh, eighth, and ninth ribs. Mild gynecomastia bilateral ly. UPPER ABDOMEN: Please refer to abdomen MRI report from same date for further details. IMPRESSION:No metastases in the chest. Signed: Tali Guzmanort Verified Date/Time: 03/14/2019 14:22:43 Reading Location: [address] Radiology Reading Room MR, ABDOMEN, [id number] 14:05:00Referring: Dr. Yuniel Fraga Abdominal VesselsFINAL REPORT [...] masses or ductal dilatation. ADRENALS: No adrenal nodules.KIDNEYS/URETERS: No hydronephrosis or solid mass lesions. Subcentimeter [...] intraductal papillary mucinous neoplasm (IPMN). Signed: Tali Guzman MDReport Verified Date/Time: 03/14/2019 14:05:02 Reading Location: [address] Radiology Reading Room VARICELLA ZOSTER ANTIBODY, [id number] 12:59:00 Test Item Value Reference Range Comments VARICELLA ZOSTER IGG (AL) (BEAKER) (test code = 3197) 5.2 VARICELLA ZOSTER RESULT INTERPRETATIONS: <=0.8 Al Nonreactive: Presumed non-immune to VZV 0.9-1.0 Al Equivocal >=1.1 Al Reactive: Presumed immune to VZVRUBELLA ANTIBODY, [id number] 12:59:00 Test Item Value Reference Range Comments RUBELLA IGG QUANTITATION (BEAKER) (test code = 41.0 IU/mL < 8.0 572) Rubella IgG Result Interpretation: </= 7.0 IU/mL Negative - Presumed non- immune 8.0 - 9.9 IU/mL Equivocal >= 10.0 IU/mL Positive - Presumed immune CYTOMEGALOVIRUS ANTIBODY, [id number] 12:59:00 Test Item Value Reference Range Comments CYTOMEGALOVIRUS, IGG (BEAKER) (test code = Positive Negat alice, Equivocal 0535) CMV IgG Result Interpretation: </= 0.8 Al Negative 0.9-1.0 Al Equivocal >/=1.1 Al PositiveCYTOMEGALOVIRUS ANTIBODY, [id number] 12:59:00 Test Item Value Reference Range Comments CYTOMEGALOVIRUS IGM ANTIBODY (BEAKER) (test Negative Nega tive, Equivocal code = 8131) CMV IgM Result Interpretation: </= 0.8 Al Negative 0.9-1.0 Al Equivocal >/= 1.1 Al PositiveEBV ANTIBODY, [id number] 12:59:00 Test Item Value Reference Range Comments JESSICA PRETTY VIRAL CAPSID ANTIGEN IGG (BEAKER) Positive N egative, Equivocal (test code = 3415) Jessica Pretty Viral Capsid Antigen IgG Result Interpretation: </= 0.8 Al Negative 0.9-1.0 Al Equivocal >/= 1.1 Al PositiveEBV ANTIBODY, IGM 2019-03-14 12:59:00 Test Item Value Reference Range Comments JESSICA PRETTY VIRAL CAPSID ANTIGEN IGM (BEAKER) Negative N egative, Equivocal (test code = 3418) Jessica Pretty Viral Capsid Antigen IgM Result Interpretation: </= 0.8 Al Negative 0.9-1.0 Al Equivocal >/= 1.1 Al PositiveBLOOD GAS, ARTERIAL 2019-03-14 12:42:00 Test Item Value Reference Range Comments PH ARTERIAL (BEAKER) (test code = 383) 7.36 7.35-7.45 PCO2 ARTERIAL (BEAKER) (test code = 384) 33 mmHg 35-45 PO2 ARTERIAL (BEAKER) (test code = 385) 121 mmHg 80-90 O2 SATURATION ARTERIAL (BEAKER) (test code = 98.2 % 96. 0-97.0 386) HCO3 ARTERIAL (BEAKER) (test code = 388) 18 mmol/L 21-29 BASE EXCESS ARTERIAL (BEAKER) (test code = 387) -6.2 mmol/L -2.0-3.0 PATIENT TEMPERATURE (BEAKER) (test code = 1818) 37.9 C FIO2 (BEAKER) (test code = 1819) 36.0 % CRYPTOCOCCAL [id number] 11:57:00 Test Item Value Reference Range Comments CRYPTOCOCCAL ANTIGEN, SERUM (BEAKER) (test Negative Negat alice, Interference code = 1828) RAD, MANDIBLE, MIN 4 [id number] 11:38:00Referring: Dr. Yuniel Loza for Exam:->HCC,ETOH,CIRRHOSIS, PRE TRANSPLANT EVALUATIONFINAL REPORT TECHNIQUE: Frontal, axiolateral, and lateral views of the mandibl e. INDICATION: 44-year-old man for liver transplant evaluation. COMPARISON: None. FINDINGS:No acute fractures or dislocations.No definite dental caries or periodontal disease. IMPRESSION:No acute osseous abnormalities or definite dental/periodontal disease. Signed: Tali Guzman MDReport Verified Date/Time: 03/14/2019 11:38:59 Reading Location: [address] Radiology Reading Room RPR 2019-03-14 11:22:00 Test Item Value Reference Range Comments RPR SCREEN (BEAKER) (test code = 420) Nonreactive Nonreactiv e HEMOGLOBIN [id number] 11:21:00 Test Item Value Reference Range Comments HEMOGLOBIN A1C (BEAKER) (test code = 368) < % 4.3-6. 1 VITAMIN D, [id number] 11:14:00 Test Item Value Reference Range Comments VITAMIN D 25-OH (BEAKER) (test code = 2764) 8.1 ng/mL 6.6- 49.9 Effective 02/01/2017: Reference Range ChangeNew: 6.6-49.9 ng/mL Previous: 13.0-47.8 ng/mLRecommended Vitamin D Target Range: 30.0-40.0 ng/mLHEPATITIS B SURFACE [id number] 10:24:00 Test Item Value Reference Range Comments HEPATITIS B SURFACE ANTIBODY (BEAKER) (test code = < mIU/mL <8.0 647) [id number] 10:01:00 Test Item Value Reference Range Comments PROSTATE SPECIFIC ANTIGEN (BEAKER) (test code = 1.9 ng/mL 0.0-4.0 844) HEPATITIS B SURFACE [id number] 10:01:00 Test Item Value Reference Range Comments HEPATITIS B SURFACE ANTIGEN (2) (BEAKER) (test Nonreactive N onreactive code = 2585) HEPATITIS C [id number] 10:01:00 Test Item Value Reference Range Comments HEPATITIS C ANTIBODY (BEAKER) (test code = 367) Nonreactive Nonreactive HIV-1 ANTIGEN WITH HIV-1/2 [id number] 10:01:00 Test Item Value Reference Range Comments HIV-1 ANTIGEN WITH HIV 1\T\2 ANTIBODY (2) Nonreactive Nonrea ctive (BEAKER) (test code = 2586) [id number] 09:59:00 Test Item Value Reference Range Comments T4 TOTAL (BEAKER) (test code = 895) 3.5 ug/dL 4.9-11.7 [id number] 09:59:00 Test Item Value Reference Range Comments THYROID STIMULATING HORMONE (BEAKER) (test code 2.71 uIU/mL 0.35-4.94 = 772) CARCINOEMBRYONIC ANTIGEN (CEA)2019-03-14 09:59:00 Test Item Value Reference Range Comments CARCINOEMBRYONIC ANTIGEN (BEAKER) (test code = 12.0 ng/mL 0 .0-5.0 685) HEPATITIS B CORE ANTIBODY, [id number] 09:59:00 Test Item Value Reference Range Comments HEPATITIS B CORE IGM ANTIBODY (BEAKER) (test Nonreactive Non reactive code = 645) HEPATITIS A ANTIBODY, [id number] 09:59:00 Test Item Value Reference Range Comments HEPATITIS A IGM ANTIBODY (BEAKER) (test code = Nonreactive N onreactive 498) HEPATITIS B CORE ANTIBODY, [id number] 09:59:00 Test Item Value Reference Range Comments HEPATITIS B CORE TOTAL ANTIBODY (BEAKER) (test Nonreactive N onreactive code = 497) [id number] 09:45:00 Test Item Value Reference Range Comments MAGNESIUM (BEAKER) (test code = 627) 1.7 mg/dL 1.6-2.6 [id number] 09:45:00 Test Item Value Reference Range Comments PHOSPHORUS (BEAKER) (test code = 604) 3.8 mg/dL 2.3-4.7 URIC [id number] 09:45:00 Test Item Value Reference Range Comments URIC ACID (BEAKER) (test code = 773) 5.4 mg/dL 2.6-7.2 Specimen slightly ictericCOMPREHENSIVE METABOLIC [id number] 09:45:00 Test Item Value Reference Range Comments TOTAL PROTEIN (BEAKER) 7.0 gm/dL 6.0-8.3 (test code = 770) ALBUMIN (BEAKER) (test 2.3 g/dL 3.5-5.0 code = 1145) ALKALINE PHOSPHATASE 271 U/L 40-150 (BEAKER) (test code = 346) BILIRUBIN TOTAL (BEAKER) 4.3 mg/dL 0.2-1.2 (test code = 377) SODIUM (BEAKER) (test code 136 meq/L 136-145 = 381) POTASSIUM (BEAKER) (test 3.7 meq/L 3.5-5.1 code = 379) CHLORIDE (BEAKER) (test 110 meq/L 98-107 code = 382) CO2 (BEAKER) (test code = 22 meq/L 22-29 355) BLOOD UREA NITROGEN 11 mg/dL 7-21 (BEAKER) (test code = 354) CREATININE (BEAKER) (test 0.80 mg/dL 0.57-1.25 code = 358) GLUCOSE RANDOM (BEAKER) 119 mg/dL 70-105 (test code = 652) CALCIUM (BEAKER) (test 8.3 mg/dL 8.4-10.2 code = 697) AST (SGOT) (BEAKER) (test 78 U/L 5-34 code = 353) ALT (SGPT) (BEAKER) (test 55 U/L 6-55 code = 347) EGFR (BEAKER) (test code = 105 mL/min/1.73 sq ES TIMATED GFR IS NOT 1092) m ACCURATE CREA TININE CLEARANCE IN PRE DICTING GLOMERULAR FILTR ATION RATE. ESTIMATED GFR IS NOT APPLICABLE F OR DIALYSIS PATIENT S. Specimen slightly ictericLIPID [id number] 09:45:00 Test Item Value Reference Range Comments TRIGLYCERIDES (BEAKER) (test code = 540) 54 mg/dL CHOLESTEROL (BEAKER) (test code = 631) 67 mg/dL HDL CHOLESTEROL (BEAKER) (test code = 976) 9 mg/dL LDL CHOLESTEROL CALCULATED (BEAKER) (test code = 47 mg/dL 633) Triglyceride Reference Range: Low Risk <150 Borderline 150-199 High Risk 200-499 Very High Risk >=500Cholesterol Reference Range: Low Risk <200 Borderline 200-239 High Risk >240HDL Cholesterol Reference Range: Low Risk >=60 High Risk <40LDL Cholesterol Reference Range: Optimal <100 Near Optimal 100-129 Borderline 130-159 High 160-189 Very High >=190 Specimen slightly ictericBILIRUBIN, [id number] 09:45:00 Test Item Value Reference Range Comments BILIRUBIN DIRECT (BEAKER) (test code = 706) 2.8 mg/dL 0.1- 0.5 GAMMA GLUTAMYL TRANSFERASE (GGT)2019-03-14 09:45:00 Test Item Value Reference Range Comments GAMMA GLUTAMYL TRANSFERASE (BEAKER) (test code = 364) 46 U/L 9-64 Specimen slightly [id number] 09:39:00 Test Item Value Reference Range Comments TRANSFERRIN (BEAKER) (test code = 541) 115 mg/dL 174-382 Specimen slightly ictericCALCIUM, [id number] 09:37:00 Test Item Value Reference Range Comments CALCIUM IONIZED (BEAKER) (test code = 698) 1.23 mmol/L 1.12- 1.27 PH, BLOOD (BEAKER) (test code = 1810) 7.30 [id number] 09:36:00 Test Item Value Reference Range Comments ETHANOL (BEAKER) (test code = 400) < mg/dL <=10 PROTHROMBIN TIME/[id number] 09:28:00 Test Item Value Reference Range Comments PROTIME (BEAKER) (test code = 759) 25.1 seconds 11.9-14.2 INR (BEAKER) (test code = 370) 2.4 <=5.9 Effective 09/19/2018: PT Reference Range ChangeNew: 11.9-14.2 Previous: 11.7- 14.7RECOMMENDED COUMADIN/WARFARIN INR THERAPY RANGESSTANDARD DOSE: 2.0-3.0 Includes: PROPHYLAXIS for venous thrombosis, systemic embolization; TREATMENT for venous thrombosis and/or pulmonary embolus.HIGH RISK: Target INR is2.5-3.5 for patients wiht mechanical heart valves.[id number] 09:28:00 Test Item Value Reference Range Comments FIBRINOGEN LEVEL (BEAKER) (test code = 658) 166 mg/dl 225- 434 [id number] 09:28:00 Test Item Value Reference Range Comments PARTIAL THROMBOPLASTIN TIME (BEAKER) (test code 55.8 seconds 22.5-36.0 = 760) URINALYSIS W/ [id number] 09:22:00 Test Item Value Reference Range Comments COLOR (BEAKER) (test code = 470) Yellow CLARITY (BEAKER) (test code = 469) Clear SPECIFIC GRAVITY UA (BEAKER) (test code = 468) 1.010 1 .001-1.035 PH UA (BEAKER) (test code = 467) 7.0 5.0-8.0 PROTEIN UA (BEAKER) (test code = 464) Negative Negative GLUCOSE UA (BEAKER) (test code = 365) Negative Negative KETONES UA (BEAKER) (test code = 371) Negative Negative BILIRUBIN UA (BEAKER) (test code = 462) Negative Negative BLOOD UA (BEAKER) (test code = 461) Negative Negative NITRITE UA (BEAKER) (test code = 465) Negative Negative LEUKOCYTE ESTERASE UA (BEAKER) (test code = 466) Negative Negative UROBILINOGEN UA (BEAKER) (test code = 463) 0.2 mg/dL 0.2-1 .0 RBC UA (BEAKER) (test code = 519) 0 /HPF WBC UA (BEAKER) (test code = 520) 0 /HPF SOURCE(BEAKER) (test code = 2795) CBC W/PLT COUNT & AUTO [id number] 09:18:00 Test Item Value Reference Range Comments WHITE BLOOD CELL COUNT (BEAKER) (test code = 7.5 K/ L 3.5 -10.5 775) RED BLOOD CELL COUNT (BEAKER) (test code = 761) 2.51 M/ L 4.63-6.08 HEMOGLOBIN (BEAKER) (test code = 410) 8.7 GM/DL 13.7-17.5 HEMATOCRIT (BEAKER) (test code = 411) 25.1 % 40.1-51.0 MEAN CORPUSCULAR VOLUME (BEAKER) (test code = 100.0 fL 79 .0-92.2 753) MEAN CORPUSCULAR HEMOGLOBIN (BEAKER) (test code 34.7 pg 25.7-32.2 = 751) MEAN CORPUSCULAR HEMOGLOBIN CONC (BEAKER) (test 34.7 GM/DL 32.3-36.5 code = 752) RED CELL DISTRIBUTION WIDTH (BEAKER) (test code 19.6 % 11.6-14.4 = 412) PLATELET COUNT (BEAKER) (test code = 756) 116 K/CU MM 150-45 0 MEAN PLATELET VOLUME (BEAKER) (test code = 754) 10.7 fL 9.4-12.4 NUCLEATED RED BLOOD CELLS (BEAKER) (test code = 0 /100 WBC 0-0 413) NEUTROPHILS RELATIVE PERCENT (BEAKER) (test code 60 % = 429) LYMPHOCYTES RELATIVE PERCENT (BEAKER) (test code 21 % = 430) MONOCYTES RELATIVE PERCENT (BEAKER) (test code = 15 % 431) EOSINOPHILS RELATIVE PERCENT (BEAKER) (test code 3 % = 432) BASOPHILS RELATIVE PERCENT (BEAKER) (test code = 1 % 437) NEUTROPHILS ABSOLUTE COUNT (BEAKER) (test code = 4.51 K/ L 1.78-5.38 670) LYMPHOCYTES ABSOLUTE COUNT (BEAKER) (test code = 1.57 K/ L 1.32-3.57 414) MONOCYTES ABSOLUTE COUNT (BEAKER) (test code = 1.14 K/ L 0 .30-0.82 415) EOSINOPHILS ABSOLUTE COUNT (BEAKER) (test code = 0.24 K/ L 0.04-0.54 416) BASOPHILS ABSOLUTE COUNT (BEAKER) (test code = 0.04 K/ L 0 .01-0.08 417) IMMATURE GRANULOCYTES-RELATIVE PERCENT (BEAKER) 0 % 0-1 (test code = 2801) MYOCARD IMAGING, MULTI, PHARM, [id number] 19:05:00Referring: Dr. Brice [facility]: MYOCARDIAL PERFUSION SPECT IMAGING (Rest/Stress)CPT CODE: 07024 INDICATION: Evaluation for coronary artery disease prior [...] Normal (LVEF 58%).LV Volume: Unchanged from rest. IMPRESSION:1. Normal study.2. Normal myocardial perfusion. 3. Normal resting LV function.4. Normal extracardiac tracer distribution. Signed: Jackie Patricio MDReport Verified Date/Time: 03/13/2019 19:05:20 Reading Location: [address] Reading Room ANTI-NUCLEAR ANTIBODY ([place])2019-02-18 10:03:00 Test Item Value Reference Range Comments ANTI-NUCLEAR ANTIBODY ([place]) (BEAKER) (test code = Positive Negative 418) Test performed by IFA method.[place] TITER AND [id number] 10:03:00 Test Item Value Reference Range Comments [place] TITER (BEAKER) (test code = 1541) >=:2560 [place] PATTERN (BEAKER) (test code = 1781) Speckled [id number] 20:03:00 Test Item Value Reference Range Comments FERRITIN (BEAKER) (test code = 361) 2900 ng/mL 5-275 ALPHA FETOPROTEIN (AFP), TUMOR [id number] 18:51:00 Test Item Value Reference Range Comments ALPHA-FETOPROTEIN (BEAKER) (test code = 1094) 14.5 ng/mL <1 0.0 BILIRUBIN, [id number] 18:34:00 Test Item Value Reference Range Comments BILIRUBIN DIRECT (BEAKER) (test code = 706) 3.7 mg/dL 0.1- 0.5 COMPREHENSIVE METABOLIC [id number] 18:34:00 Test Item Value Reference Range Comments TOTAL PROTEIN (BEAKER) 7.8 gm/dL 6.0-8.3 (test code = 770) ALBUMIN (BEAKER) (test 2.5 g/dL 3.5-5.0 code = 1145) ALKALINE PHOSPHATASE 292 U/L 40-150 (BEAKER) (test code = 346) BILIRUBIN TOTAL (BEAKER) 5.5 mg/dL 0.2-1.2 (test code = 377) SODIUM (BEAKER) (test code 121 meq/L 136-145 = 381) POTASSIUM (BEAKER) (test 4.4 meq/L 3.5-5.1 code = 379) CHLORIDE (BEAKER) (test 95 meq/L 98-107 code = 382) CO2 (BEAKER) (test code = 21 meq/L 22-29 355) BLOOD UREA NITROGEN 26 mg/dL 7-21 (BEAKER) (test code = 354) CREATININE (BEAKER) (test 1.09 mg/dL 0.57-1.25 code = 358) GLUCOSE RANDOM (BEAKER) 114 mg/dL 70-105 (test code = 652) CALCIUM (BEAKER) (test 9.0 mg/dL 8.4-10.2 code = 697) AST (SGOT) (BEAKER) (test 161 U/L 5-34 code = 353) ALT (SGPT) (BEAKER) (test 129 U/L 6-55 code = 347) EGFR (BEAKER) (test code = 74 mL/min/1.73 sq m E STIMATED GFR IS NOT 1092) ACCURATE CREA TININE CLEARANCE IN PRE DICTING GLOMERULAR FILTR ATION RATE. ESTIMATED GFR IS NOT APPLICABLE F OR DIALYSIS PATIENT S. Specimen moderately ictericGAMMA GLUTAMYL TRANSFERASE (GGT)2019-02-14 18:34:00 Test Item Value Reference Range Comments GAMMA GLUTAMYL TRANSFERASE (BEAKER) (test code = 364) 48 U/L 9-64 Specimen moderately ictericIRON, TIBC, % SAT. (WITHOUT FERRITIN)2019-02-14 18:26:00 Test Item Value Reference Range Comments IRON (BEAKER) (test code = 547) 137.0 ug/dL 40.0-160.0 TOTAL IRON BINDING CAPACITY (BEAKER) (test code 153 ug/dL 250-450 = 769) IRON % SATURATION (2) (BEAKER) (test code = 90 % 20-5 5 2590) [id number] 18:26:00 Test Item Value Reference Range Comments ALPHA-1 ANTITRYPSIN (BEAKER) (test code = 502) 165.60 mg/dL 9 0.00-200.00 PROTHROMBIN TIME/[id number] 17:50:00 Test Item Value Reference Range Comments PROTIME (BEAKER) (test code = 759) 26.3 seconds 11.9-14.2 INR (BEAKER) (test code = 370) 2.6 <=5.9 Effective 09/19/2018: PT Reference Range ChangeNew: 11.9-14.2 Previous: 11.7- 14.7RECOMMENDED COUMADIN/WARFARIN INR THERAPY RANGESSTANDARD DOSE: 2.0-3.0 Includes: PROPHYLAXIS for venous thrombosis, systemic embolization; TREATMENT for venous thrombosis and/or pulmonary embolus.HIGH RISK: Target INR is2.5-3.5 for patients wiht mechanical heart valves.CBC W/PLT COUNT & AUTO [id number] 17:44:00 Test Item Value Reference Range Comments WHITE BLOOD CELL COUNT (BEAKER) (test code = 11.1 K/ L 3.5 -10.5 775) RED BLOOD CELL COUNT (BEAKER) (test code = 761) 2.46 M/ L 4.63-6.08 HEMOGLOBIN (BEAKER) (test code = 410) 8.6 GM/DL 13.7-17.5 HEMATOCRIT (BEAKER) (test code = 411) 23.4 % 40.1-51.0 MEAN CORPUSCULAR VOLUME (BEAKER) (test code = 95.1 fL 79 .0-92.2 753) MEAN CORPUSCULAR HEMOGLOBIN (BEAKER) (test code 35.0 pg 25.7-32.2 = 751) MEAN CORPUSCULAR HEMOGLOBIN CONC (BEAKER) (test 36.8 GM/DL 32.3-36.5 code = 752) RED CELL DISTRIBUTION WIDTH (BEAKER) (test code 16.1 % 11.6-14.4 = 412) PLATELET COUNT (BEAKER) (test code = 756) 102 K/CU MM 150-45 0 MEAN PLATELET VOLUME (BEAKER) (test code = 754) 10.0 fL 9.4-12.4 NUCLEATED RED BLOOD CELLS (BEAKER) (test code = 0 /100 WBC 0-0 413) NEUTROPHILS RELATIVE PERCENT (BEAKER) (test code 72 % = 429) LYMPHOCYTES RELATIVE PERCENT (BEAKER) (test code 15 % = 430) MONOCYTES RELATIVE PERCENT (BEAKER) (test code = 11 % 431) EOSINOPHILS RELATIVE PERCENT (BEAKER) (test code 1 % = 432) BASOPHILS RELATIVE PERCENT (BEAKER) (test code = 1 % 437) NEUTROPHILS ABSOLUTE COUNT (BEAKER) (test code = 8.02 K/ L 1.78-5.38 670) LYMPHOCYTES ABSOLUTE COUNT (BEAKER) (test code = 1.67 K/ L 1.32-3.57 414) MONOCYTES ABSOLUTE COUNT (BEAKER) (test code = 1.18 K/ L 0 .30-0.82 415) EOSINOPHILS ABSOLUTE COUNT (BEAKER) (test code = 0.15 K/ L 0.04-0.54 416) BASOPHILS ABSOLUTE COUNT (BEAKER) (test code = 0.05 K/ L 0 .01-0.08 417) IMMATURE GRANULOCYTES-RELATIVE PERCENT (BEAKER) 0 % 0-1 (test code = 2801)
--- OUTSIDE RECORDS SUMMARY | 2019-08-09 01:33 | XMS REPORT ---
:1975 Author Organization eClinicalWorks Care Team Providers Name Role Phone Asim [facility] Provider Role Unavailable Allergies, Adverse Reactions, Alerts Substance Reaction Event Type N.K.D.A. Info Not Available Non Drug Allergy Problems Problem Type Condition Code Onset Dates Condition Statu s Assessment Insomnia, unspecified type G47.00 A ctive Assessment History of alcohol abuse F10.11 Act alice Assessment Seasonal allergies J30.2 Active Problem Erectile dysfunction, unspecified N52.9 Active erectile dysfunction type Assessment Generalized anxiety disorder F41.1 Active Problem Alcoholic cirrhosis of liver with K70.31 Active ascites Assessment Erectile dysfunction, unspecified N52.9 Active erectile dysfunction type Problem Seasonal allergies J30.2 Active Problem Other chronic pain G89.29 Active Problem Generalized anxiety disorder F41.1 Active Problem Insomnia, unspecified type G47.00 A ctive Problem Current moderate episode of major F32.1 Active depressive disorder without prior episode Assessment Low back pain M54.5 Active Assessment Secondary esophageal varices with I85.11 Active bleeding Problem Secondary esophageal varices with I85.11 Active bleeding Assessment Other chronic pain G89.29 Active Problem Peripheral edema R60.9 Active Problem Jaundice R17 Active Problem Hepatocellular carcinoma C22.0 Act alice Problem Vitamin D deficiency E55.9 Active Assessment Alcoholic cirrhosis of liver with K70.31 Active ascites Assessment Hepatocellular carcinoma C22.0 Act alice Assessment Current moderate episode of major F32.1 Active depressive disorder without prior episode Assessment Vitamin D deficiency E55.9 Active Problem Anxiety F41.9 Active Problem Liver lesion K76.9 Active Problem History of alcohol abuse F10.11 Act alice Medications Medication Code Code Instructions Start End Status Dosage System Date Date Lidoderm [facility] 66374405693 5 % Externally Active 1 pa tch Once a day remove after 12 hours Trazodone HCl ND 86662755256 50 MG Orally Jun 05, Active 1 tablet Once a day 2020 at bedtime as needed Omeprazole ND 62285833207 20 MG Orally Active 1 ca psule Once a day 30 minutes before morning meal HydrOXYzine ND 20778326864 50 MG Orally Active 1 c apsule Pamoate every 8 hrs PRN as neede d Anxiety/Itching Vitamin D3 [facility] 62659807245 63252 UNIT Active 1 caps ule Orally Once a week x 12 weeks Spironolactone ND 81569657812 50 MG Orally Active 1 tablet Twice a day Lasix ND 19186158440 20 MG Orally Active 1 table t Once a day Lactulose [facility] 98010814388 20 GM/30ML Active 15 ml Orally Twice a day Xifaxan [facility] 95326229039 550 MG Orally Active 1 tabl et Twice a day Multi Vitamin ND 79722365224 - Orally Once a Active 1 tablet day Carisoprodol [facility] 52994414059 350 MG Oral Active (sc hedule Four times a iv drug) day PRN take one -1 tablet(s) by mouth every six hours as needed for spasm. Escitalopram [facility] 13177120608 20 MG Orally Active 1 tablet Oxalate Once a day Folic Acid ND 67961705928 1 MG Orally Active 1 tab let Once a day Results No Known Results Summary Purpose eClinicalWorks Submission
--- OUTSIDE RECORDS SUMMARY | 2019-08-09 01:39 | XMS REPORT ---
:1975 Author Organization eClinicalWorks Care Team Providers Name Role Phone Asim [facility] Provider Role Unavailable Allergies No Known Allergies Problems Problem Type Condition Code Onset Dates Condition Statu s Problem Seasonal allergies J30.2 Active Problem Other [...] deficiency E55.9 Active Assessment Hepatocellular carcinoma C22.0 Act alice Problem Anxiety F41.9 Active Problem Liver lesion K76.9 Active Problem Erectile dysfunction, unspecified N52.9 Active erectile dysfunction type Problem History of alcohol abuse F10.11 Act alice Problem Alcoholic cirrhosis of liver with K70.31 Active ascites Medications No Known Medications Results No Known Results Summary Purpose eClinicalWorks Submission
--- OUTSIDE RECORDS SUMMARY | 2019-08-09 01:47 | XMS REPORT ---
:1975 Author Organization eClinicalWorks Care Team Providers Name Role Phone Asim [facility] Provider Role Unavailable Allergies No Known [...]
--- OUTSIDE RECORDS SUMMARY | 2019-08-09 01:51 | XMS REPORT ---
:1975 Author Organization eClinicalWorks Care Team Providers Name Role Phone Dailey [facility] Provider Role Unavailable Allergies No Known Allergies [...] alice Problem Vitamin D deficiency E55.9 Active Problem Anxiety F41.9 Active Problem Liver lesion K76.9 Active Problem Erectile dysfunction, unspecified N52.9 Active erectile dysfunction type Problem History of alcohol abuse F10.11 Act alice Problem Alcoholic cirrhosis of liver with K70.31 Active ascites Medications No Known Medications Results No Known Results Summary Purpose [employer] Submission
[2019-08-09] MEDS ORDERED: NA CHLORIDE 0.9% 1,000 ML ONE (02:07)
--- OUTSIDE RECORDS SUMMARY | 2019-08-09 02:10 | XMS REPORT | Summary of Care ---
:1975 Author Organization [facility] Address [address] [place] [address] Care Team Providers Name Role Phone Asim Sohail Primary Care Provider Reason for Visit Reason Comments Transplant Status Update Attempt to call patient re: inactive on list Encounter Details Date Type Department Care Team Description 07/29/2019 Case Management [facility] [place], Transplant S tatus Transplant-[place] MD Gladis Update (Attempt to [facility] [address] call patient re: [address] [facility] So [facility] S inactive on list) [place] [address] [phone] Allergies No Known Allergiesdocumented as of this encounter (statuses as of 07/29/2019) Medications Medication Sig Dispensed Refills Start Date End Date Status spironolactone 100 mg Take 1 tablet by 30 tablet 12 01/22/2019 Active tabletIndications: mouth daily. Chronic liver failure without hepatic coma Additional information Patient taking differently: 50 mg Oral BID, Reported on 04/30/2019 4:41 PM rifAXIMin (XIFAXAN) 550 Take 550 mg by 0 Active mg tablet mouth 2 (two) times daily. gbupfnuw-sboe-AX-calcium- Take 1 tablet by 0 Active mins [...] 10 mL by mouth 480 mL 0 0 Active suspensionIndications: as needed Acute upper GI [...] 30 mL by mouth 500 mL 12 2019 Active solutionIndications: 4 (four) times Chronic liver failure daily. without hepatic coma zinc sulfate (ZINC-220) Take 1 capsule by 90 capsule 2 020 10/17/2019 Active 220 (50) mg mouth 3 (three) capsuleIndications: Liver times daily for 90 transplant candidate days. ciprofloxacin HCl 500 mg Take 1 tablet by 30 tablet 2 07/20/19 20 10/18/2019 Active tabletIndications: Liver mouth every 24 transplant candidate (twenty-four) hours for 90 days. Sodium Phenylbutyrate 500 Take 500 mg by 90 tablet 1 0 Active mg TabIndications: Liver mouth 3 (three) transplant candidate times daily with meals. bacitracin 500 unit/gram Apply to affected 15 g 0 201907/30/2019 Active ointmentIndications: area(s) 4 (four) Superficial burn of left times daily for 5 forearm, initial days. encounter, Superficial burn of abdominal wall, initial encounter silver sulfADIAZINE 1 % Apply to area(s) 2 25 g 0 2019 Active creamIndications: (two) times daily. Superficial burn [...] as of this encounter (statuses as of 07/29/2019) Active Problems Problem Noted Date Altered mental [...] as of this encounter (statuses as of 07/29/2019) Immunizations Name Administration Dates Next Due HEP B, Adult Dosage 04/15/2019 Influenza Virus Vaccine 12/23/2018, 01/22/2018 Pneumococcal 13 Conjugate, PCV13 (Prevnar 13) 11/21/2018 documented as of this encounter Social History Tobacco Use Types Packs/Day Years Used Date Never Smoker Smokeless Tobacco: Never Used Alcohol Use Drinks/Week oz/Week Comments Yes Reports heavy al cohol use for 20 years. Alcohol Habits Answer Date Recorded How often do you have a drink containing alcohol? Never 11/15/2018 How many drinks containing alcohol do you have on a typical 10 or more 11/15/2018 day when you are drinking? How often do you have six or more drinks on one occasion? Ne trever 11/15/2018 Sex Assigned at Date Recorded Not on file Job Start Date Occupation Industry Not on file Not on file Not on file Travel History Travel Start Travel End No recent travel history available. documented as of this encounter Last Filed Vital Signs Not on filedocumented in this encounter Progress Notes Blanka Wallis RN - 07/29/2019 12:30 PM [facility] attempted to call both Benjamin and Stuart with no answer. We will send MRB letter. documented in this encounter Plan of Treatment Date Type Specialty Care Team Description 08/28/2019 Appointment Cardiac Offshoring Manager Yandel Jaeger MD [address] [place] [address] [address] [place], [place] [id number] Provider, Shell Cardiac 2, Clc Cardiac Proc Room Health Maintenance Due Date Last Done Comments DTaP,Tdap,and Td Vaccines (1 - Tdap) 1986 PNEUMOCOCCAL 0-64 YEARS COMBINED SERIES (2 01/16/201911/21 of 3 - PPSV23) INFLUENZA VACCINE Completed 12/23/2018, 01/22/2018 documented as of this encounter Results Not on filedocumented in this encounter Insurance Payer Benefit Plan / Subscriber ID Effective Dates Phone Addre ss Type Group BCBS OF HIM BCBS BLUE [id number] 2019-Thelma [phone] [address] [facility] t 7 [id number] [place] [address] documented as of this encounter
--- OUTSIDE RECORDS SUMMARY | 2019-08-09 02:11 | XMS REPORT | Summary of Care ---
:1975 Author Organization [facility] Address [address] [place] [address] Care Team Providers Name Role Phone Asim Sohail Primary Care Provider Reason for Visit Reason Comments Transplant Status Update Attempt to call patient re: inactive on list Encounter Details Date Type Department Care Team Description 07/29/2019 Case Management [facility] [place], Transplant S tatus Transplant[place] MD Gladis Update (Attempt to [facility] [address] [place] call patient re: [address] [facility] So [facility] S inactive on list) [place] [address] [phone] Allergies No Known Allergiesdocumented as of this [...] mg tablet mouth 2 (two) times daily. xktticfi-jwzo-KZ-calcium- Take 1 tablet by 0 Active mins [...] Specialty Care Team Description 08/28/2019 Appointment Cardiac Tool Crib Lead Yandel Jaeger MD [address] [place] [address] [address] [place], [place] [address] Provider, Shell Cardiac 2, Clc Cardiac Proc [...] Type Group BCBS OF HIM BCBS BLUE [id number] 2019-Thelma [phone] [address] [facility] t 7 [id number] [place] [address] documented as of this encounter
--- OUTSIDE RECORDS SUMMARY | 2019-08-09 02:11 | XMS REPORT ---
:1975 Author Organization eClinicalWorks Care Team Providers Name Role Phone Asim Yuniel Provider Role Unavailable Allergies No Known Allergies [...] of liver with K70.31 Active ascites Medications Medication Code Code Instructions Start End Date Status Dosage System Date Carisoprodol [facility] 58532310614 350 MG Oral Four Active 1 tablet times a day PRN as neede d muscle spasm Results No Known Results Summary Purpose eClinicalWorks Submission
--- OUTSIDE RECORDS SUMMARY | 2019-08-09 02:12 | XMS REPORT ---
:1975 Author Organization eClinicalWorks Care Team Providers Name Role Phone Dailey [facility] Provider Role Unavailable Allergies No Known Allergies [...] Medications Results No Known Results Summary Purpose [employer] Submission
--- OUTSIDE RECORDS SUMMARY | 2019-08-09 02:12 | XMS REPORT | Summary of Care ---
:1975 Author Organization [facility] Address [address] [place] [address] Care Team Providers Name Role Phone Sohail Dailey Primary Care Provider Reason for Referral MRI/CAT Scan (Routine) Status Reason Specialty Diagnoses / Referred By Referred To Procedures Contact Contact New Request Diagnostic Diagnoses HCC (hepatocellular carcinoma) Chronic liver failure without hepatic coma [place], Radiology Procedures CT THORAX WO CONTRAST MD Gladis [address] [place] [address] Radiology Services (Routine) Status Reason Specialty Diagnoses / Referred By Referred To Procedures Contact Contact New Request Diagnostic Diagnoses HCC (hepatocellular carcinoma) Chronic liver failure without hepatic coma [place], Radiology Procedures NM BONE WHOLE BODY MD Gladis [address] [place] [address] Reason for Visit Reason Comments Orders Encounter Details Date Type Department Care Team Description 07/30/2019 Case Management [facility] Gladis Couch Orders Transplant[facility] [facility] [address] [place] [address] [phone] Allergies No Known Allergiesdocumented as of this encounter (statuses as of 07/30/2019) Medications Medication Sig Dispensed Refills Start Date End Date Status spironolactone 100 mg Take 1 tablet by 30 tablet 12 01/22/2019 Active tabletIndications: mouth daily. Chronic liver failure without hepatic coma Additional information Patient taking differently: 50 mg Oral BID, Reported on 04/30/2019 4:41 PM rifAXIMin (XIFAXAN) 550 Take 550 mg by 0 Active mg tablet mouth 2 (two) times daily. dsagslaq-raqn-DC-calcium- Take 1 tablet by 0 Active mins [...] as of this encounter (statuses as of 07/30/2019) Active Problems Problem Noted Date Altered mental [...] as of this encounter (statuses as of 07/30/2019) Immunizations Name Administration Dates Next Due HEP [...] Specialty Care Team Description 08/28/2019 Appointment Cardiac Ada Accommodation Consultant Yandel Jaeger MD [address] [place] [address] [address] [place] [address] Provider, Clc Cardiac 2, Clc Cardiac Proc Room Name Type Priority Associated Diagnoses Order S chedule PROTHROMBIN TIME / INR LAB Routine HCC (hepatocellula r 100 Occurrences carcinoma) starting 07/30/2019 Chronic liver failure until 07/29/2021 without hepatic coma HEPATIC FUNCTION PANEL LAB Routine HCC (hepatocellula r 100 Occurrences (75926) (ALB,T.PRO,BILI carcinom a) starting 07/30/2019 T,BU/BC,ALT,AST,ALK Chronic liver failure until 07/29/2021 PHOS) without hepatic coma BASIC METABOLIC PANEL LAB Routine HCC (hepatocellular 100 Occurrences (NA, K, CL, CO2, carcinoma) starting 07/30/2019 GLUCOSE, BUN, Chronic liver failure until 07/29/2021 CREATININE, CA) without hepatic coma CBC WITH DIFF LAB Routine HCC (hepatocellular 100 Occ urrences carcinoma) starting 07/30/2019 Chronic liver failure until 07/29/2021 without hepatic coma ALPHA FETOPROTEIN LAB Routine HCC (hepatocellular Exp ected: 07/30/2019, carcinoma) Expires: 07/29/2020 Chronic liver failure without hepatic coma NM BONE WHOLE BODY IMAGING Routine HCC (hepatocellular Ex pected: 07/30/2019, carcinoma) Expires: 07/29/2020 Chronic liver failure without hepatic coma CT THORAX WO CONTRAST IMAGING Routine HCC (hepatocellular Expected: 07/30/2019, carcinoma) Expires: 07/29/2020 Chronic liver failure without hepatic coma Health Maintenance Due Date Last Done Comments DTaP,Tdap,and Td Vaccines (1 - Tdap) 1986 PNEUMOCOCCAL 0-64 YEARS COMBINED SERIES (2 01/16/201911/21 of 3 - PPSV23) INFLUENZA VACCINE Completed 12/23/2018, 01/22/2018 documented as of this encounter Results Not on filedocumented in this encounter Visit Diagnoses Diagnosis HCC (hepatocellular carcinoma) - Primary Malignant neoplasm of liver, primary Chronic liver failure without hepatic co ma documented in this encounter Insurance Payer Benefit Plan / Subscriber ID Effective Dates Phone Addre ss Type Group BCBS OF HIM BCBS BLUE [id number] 2019-Thelma [phone] [address] HMO [facility] t [id number] [place] [address] documented as of this encounter
--- OUTSIDE RECORDS SUMMARY | 2019-08-09 02:12 | XMS REPORT ---
[...] Start End Status Dosage System Date Date Carisoprodol [facility] 77222426446 350 MG Oral August 28, Active (sc hedule Four times a 2020 iv drug) day PRN take one -1 tablet(s) by mouth every six hours as needed for spasm. Lasix ND 88514644309 20 MG Orally Active 1 table t Once a day Folic Acid ND 98092937027 1 MG Orally Active 1 tab let Once a day HydrOXYzine ND 46025491701 50 MG Orally Active 1 c apsule Pamoate every 8 hrs PRN as neede d Anxiety/Itching Lidoderm [facility] 90026242505 5 % Externally Active 1 pa tch Once a day remove after 12 hours Spironolactone ND 18685068034 50 MG Orally Active 1 tablet Twice a day Trazodone HCl [facility] 12735862272 100 MG Orally Active 1 tablet Once a day at bedtime as needed Lactulose [facility] 76128579519 20 GM/30ML Active 15 ml Orally Twice a day Xifaxan [facility] 52310423371 550 MG Orally Active 1 tabl et Twice a day Multi Vitamin [facility] 56143251736 - Orally Once a Active 1 tablet day Escitalopram [facility] 37543067434 20 MG Orally Active 1 tablet Oxalate Once a day Vitamin D3 [facility] 44253437395 [address]5847 UNIT Active 1 caps ule Orally Once a week x 12 weeks Omeprazole ND 25678424751 20 MG Orally Active 1 ca psule Once a day 30 minutes before morning meal Results No Known Results Summary Purpose eClinicalWorks Submission
--- OUTSIDE RECORDS SUMMARY | 2019-08-09 02:12 | XMS REPORT | Summary of Care ---
:1975 Author Organization [facility] Address [address] [place] [address] Care Team Providers Name Role Phone Asim Sohail Primary Care Provider Reason for Visit Reason Comments Orders Encounter Details Date Type Department Care Team Description 07/30/2019 Case Management [facility] Gladis Couch, Lj [facility] [facility] [address] [place] [address] [place] [address] [place] [phone] Allergies No Known Allergiesdocumented as of this [...] mg tablet mouth 2 (two) times daily. bcvxzfbc-kwpo-NK-calcium- Take 1 tablet by 0 Active mins [...] Specialty Care Team Description 08/28/2019 Appointment Cardiac Sporting Goods Salesperson Yandel Jaeger MD [address] [place] [address] [address] [place] [address] Provider, Clc Cardiac 2, Clc Cardiac Proc Room Name Type Priority Associated Diagnoses Order S chedule PROTHROMBIN TIME / INR LAB Routine HCC (hepatocellula r 100 Occurrences starting carcinoma) 07/30/2019 until Chronic liver failure 2021 without hepatic coma HEPATIC FUNCTION PANEL LAB Routine HCC (hepatocellula r 100 Occurrences starting (05675) (ALB,T.PRO,BILI carcinom a) 07/30/2019 until T,BU/BC,ALT,AST,ALK Chronic liver failure 07/29/2021 PHOS) without hepatic coma BASIC METABOLIC PANEL LAB Routine HCC (hepatocellular 100 Occurrences starting (NA, K, CL, CO2, carcinoma) 07/30/2019 until GLUCOSE, BUN, Chronic liver failure 07/29 CREATININE, CA) without hepatic coma CBC WITH DIFF LAB Routine HCC (hepatocellular 100 Occ urrences starting carcinoma) 07/30/2019 until Chronic liver failure 2021 without hepatic coma Health Maintenance Due Date [...] Type Group BCBS OF HIM BCBS BLUE [id number] 2019-Thelma [phone] [address] O [facility] t 7 [id number] [place] [address] documented as of this encounter
--- OUTSIDE RECORDS SUMMARY | 2019-08-09 02:13 | XMS REPORT | Summary of Care ---
:1975 Author Organization [facility] Address [address] [place] [address] Care Team Providers Name Role Phone Sohail Dailey Primary Care Provider Reason for Visit Reason Comments Foot Pain Auth/Cert Status Reason Specialty Diagnoses / Referred By Referred To Procedures Contact Contact Emergency Medicine Ad[facility] Em ergency Dept [address] [place] [address] Fax: Encounter Details Date Type Department Care Team Description 08/04/2019 Emergency ADC-Emergency Depart ment Izabel Freitas, DO [id number] [place] [address] [phone] Allergies No Known Allergiesdocumented as of this encounter (statuses as of 08/04/2019) Medications Medication Sig Dispensed Refills Start Date End Date Status spironolactone 100 mg Take 1 tablet by 30 tablet 12 01/22/2019 Active tabletIndications: mouth daily. Chronic liver failure without hepatic coma Additional information Patient taking differently: 50 mg Oral BID, Reported on 04/30/2019 4:41 PM rifAXIMin (XIFAXAN) 550 Take 550 mg by 0 Active mg tablet mouth 2 (two) times daily. tvlxanqu-nley-AK-calcium- Take 1 tablet by 0 Active mins [...] (three) transplant candidate times daily with meals. silver sulfADIAZINE 1 % Apply to area(s) 25 g 0 07/25/19 20 Active creamIndications: 2 (two) times Superficial burn of left daily. forearm, initial encounter, Superficial burn of abdominal wall, initial encounter traMADol 50 mg Take 1 tablet by 12 tablet 0 07/25/2019 Active tabletIndications: mouth every 6 Superficial burn of left (six) hours as forearm, initial needed for Pain encounter, Superficial (scale 4-6). burn of abdominal wall, initial encounter documented as of this encounter (statuses as of 08/04/2019) Active Problems Problem Noted Date Altered mental [...] as of this encounter (statuses as of 08/04/2019) Immunizations Name Administration Dates Next Due HEP B, Adult Dosage 04/15/2019 Influenza Virus Vaccine 12/23/2018, 01/22/2018 Pneumococcal 13 Conjugate, PCV13 (Prevnar 13) 11/21/2018 Td 08/04/2019 documented as of this encounter Social History [...] Sign Reading Time Taken Comments Blood Pressure 122/70 08/04/2019 4:02 AM CDT Pulse 77 08/04/2019 4:02 AM CDT Temperature 37.1 C (98.8 F) 08/04/2019 4:02 AM CDT Respiratory Rate 16 08/04/2019 4:02 AM CDT Oxygen Saturation 99% 08/04/2019 4:02 AM CDT Inhaled Oxygen Concentration - - Weight 83.9 kg (185 lb) 08/04/2019 4:02 AM CDT Height 175.3 cm (5' 9") 08/04/2019 4:02 AM CDT Body Mass Index 27.32 08/04/2019 4:02 AM CDT documented in this encounter Discharge Instructions Izabel Armando DO - 08/04/2019DIAGNOSIS 1. Wound check NO LIFE-THREATENING FINDINGS ON TODAY'S EXAM. PROCEDURES IN THE ER TODAY: None MEDICATIONS ADMINISTERED IN THE ER TODAY: Tetanus booster YOUR PRESCRIPTIONS AND [id number] MEDICATION RECOMMENDATIONS: None SPECIAL CARE INSTRUCTIONS: None FOLLOW-UP RECOMMENDATIONS: RECOMMEND FOLLOW-UP WITH A PRIMARY CARE PROVIDER OR SPECIALIST IN 2-5 DAYS, ESPECIALLY IF NO IMPROVEMENT IN SYMPTOMS. TO FOLLOW-UP WITHIN THE [facility], TRY THESE OPTIONS (CLINIC APPOINTMENTS AVAILABLE ON RNID-LC-AIGR BASIS): 1. SCHEDULE AN APPOINTMENT ONLINE AT WWW.[facility] 2. OR CALL THE [facility] ACCESS CENTER AT OR 3. OR CALL YOUR [facility] PHYSICIAN'S OFFICE DIRECTLY IF YOU ARE ALREADY AN ESTABLISHED [facility] PATIENT. OR, YOU MAY FOLLOW-UP WITH A PROVIDER OF YOUR CHOICE, SUCH : 1. A PHYSICIAN OF YOUR CHOICE 2. [facility], . LOCATIONS IN [facility] 3. [facility], [address] [place] [address]; [phone] RETURN TO ER FOR WORSENING OF SYMPTOMS. AttachmentsThe following attachments cannot be sent through Care Everywhere. Wound Care ([place])documented in this encounter Plan of Treatment Date Type Specialty Care Team Description 08/07/2019 Telemedicine Visit Psychiatry Hank Huddleston MD [address] [place] [address] [place] [address] Wendy Brush MD [address] [place] [phone] 08/21/2019 Aircraft Seat Upholsterer Visit Phlebotomy Kate Padgett Lab Main 08/21/2019 Appointment Radiology Raquel Couch MD [address] [place] [address] [phone] 08/21/2019 Appointment Radiology Raquel Couch MD [address] [place] [address] [phone] 08/21/2019 Appointment Radiology Raquel Couch MD [address] [place], [place] [phone] 08/21/2019 Appointment Radiology Raquel Couch MD [facility] [place], [place] [address] 08/28/2019 Appointment Cardiac Race Car Driver Yandel Jaeger MD [address] [place] [address] [address] [place], [place] [address] Provider, Shell Cardiac 2, Clc Cardiac Proc Room Health Maintenance Due Date Last Done Comments DTaP,Tdap,and Td Vaccines (1 - Tdap) 1986 PNEUMOCOCCAL 0-64 YEARS COMBINED SERIES (2 01/16/201911/21 of 3 - PPSV23) INFLUENZA VACCINE Completed 12/23/2018, 01/22/2018 documented as of this encounter Results Not on filedocumented in this encounter Administered Medications Medication Order MAR Action Action Date Dose Rate Site tetanus-diphtheria Given 08/04/2019 4:15 AM 0.5 mL Left Deltoid-IM toxoids (TDVAX) 2-2 Lf CDT unit/0.5 mL injection 0.5 mL 0.5 mL, Intramuscular, ONCE, 1 dose, 08/04/19 at 0515, Routine documented in this encounter Insurance Payer Benefit Plan / Subscriber ID Effective Dates Phone Addre ss Type Group BCBS OF HIM BCBS BLUE [id number] 2019-Thelma [phone] [address] HMO [facility] t [phone] [place] [address] [address] [place] [address] documented as of this encounter
--- OUTSIDE RECORDS SUMMARY | 2019-08-09 02:13 | XMS REPORT | Summary of Care ---
:1975 Author Organization [facility] - Health Address [address] [place] [address] Care Team Providers Name Role Phone Asim Sohail Primary Care Provider Encounter Details Date Type Department Care Team Description 07/01/2019 Orders Only [facility] Doctor Unassigned, No [address] [facility] [address] [address] [place] [address] Allergies No Known Allergiesdocumented as of this encounter (statuses as of 08/01/2019) Medications Medication Sig Dispensed Refills Start Date End Date Status spironolactone 100 mg Take 1 tablet by 30 tablet 12 01/22/2019 Active tabletIndications: mouth daily. Chronic liver failure without hepatic coma Additional information Patient taking differently: 50 mg Oral BID, Reported on 04/30/2019 4:41 PM rifAXIMin (XIFAXAN) 550 mg Take 550 mg by mouth 2 0 Active tablet (two) times daily. icdsabog-oyuu-VP-calcium-mins Take 1 tablet by mouth 0 Active 9 mg iron-400 mcg tablet daily. HYDROXYZINE HCL ORAL Take 50 mg by mouth 0 Active every 6 (six) hours as needed for Other (anxiety). ergocalciferol, vitamin d2, Take 50,000 Units by 0 Active (VITAMIN D2) 50,000 unit mouth weekly. capsule escitalopram oxalate Take 20 mg by mouth 0 Active (LEXAPRO) 20 mg tablet daily. carisoprodol (SOMA) 350 mg Take 350 mg by mouth 4 0 Active tablet (four) times daily as needed for Insomnia. folic acid 0.8 mg Cap Take 1 capsule by mouth 0 Active daily. sucralfate 100 mg/mL Take 10 mL by mouth as 480 mL 0 2019 Active suspensionIndications: Acute needed (esophageal upper GI bleed pain). furosemide 40 mg Take 1 tablet by mouth 90 tablet 0 05/17/2019 Active tabletIndications: Common daily. bile duct dilatation, SBP (spontaneous bacterial peritonitis) THIAMINE HCL ORAL Take by mouth. 0 Active magnesium oxide (MAG-OXIDE Take 400 mg by mouth 2 0 Active ORAL) (two) times daily. documented as of this encounter (statuses as of 08/01/2019) Active Problems Problem Noted Date Altered mental [...] as of this encounter (statuses as of 08/01/2019) Immunizations Name Administration Dates Next Due HEP [...] Telemedicine Visit Psychiatry Hank Huddleston MD [address] [facility] [place] [place] [address] Wendy Brush MD [address] [place] [phone] 08/21/2019 Station Attendant Visit Phlebotomy Pob, Adc Lab Main 08/21/2019 Appointment Radiology Raquel Couch MD [address] [place] [phone] 08/21/2019 Appointment Radiology Raquel Couch MD [address] [place] [phone] 08/21/2019 Appointment Radiology Raquel Couch MD [address] [place] [phone] 08/21/2019 Appointment Radiology Raquel Couch MD [address] [place] [phone] 08/28/2019 Appointment Cardiac Supervising Producer aYndel Jaeger MD [address] [facility] [address] [place] [phone] Provider, Clc Cardiac 2, Clc Cardiac Proc Room Health Maintenance Due Date Last Done Comments DTaP,Tdap,and Td Vaccines (1 - Tdap) 1986 PNEUMOCOCCAL 0-64 YEARS COMBINED SERIES (2 01/16/201911/21 of 3 - PPSV23) INFLUENZA VACCINE Completed 12/23/2018, 01/22/2018 documented as of this encounter Procedures Procedure Name Priority Date/Time Associated Diagnosis Comme nts AUTHORIZATION FOR RELEASE Routine 07/01/2019 12:01 AM OF PHI CDT documented in this encounter Results Not on filedocumented in this encounter Insurance Payer Benefit Plan / Subscriber ID Effective Dates Phone Addre ss Type Group BCBS OF HIM BCBS BLUE [id number] 2019-Thelma [phone] [address] [facility] t [phone] [place] [address] documented as of this encounter
--- OUTSIDE RECORDS SUMMARY | 2019-08-09 02:19 | XMS REPORT | Clinical Summary ---
:1975 Author Organization [facility] Address [address] [place] [id number] Care Team Providers Name Role Phone Asim Sohail Primary Care Provider Allergies No Known Allergies Medications Medication Sig Dispensed Refills Start Date End Date Status spironolactone 100 mg Take 1 tablet by 30 tablet 12 01/22/2019 Active tabletIndications: mouth daily. Chronic liver failure without hepatic coma Additional information Patient taking differently: 50 mg Oral BID, Reported on 04/30/2019 4:41 PM rifAXIMin (XIFAXAN) 550 Take 550 mg by 0 Active mg tablet mouth 2 (two) times daily. ltuqwrew-flog-CR-calcium- Take 1 tablet by 0 Active mins [...] 4-6). burn of abdominal wall, initial encounter bacitracin 500 unit/gram Apply to affected 15 g 0 201907/30/2019 ointmentIndications: area(s) 4 (four) Superficial burn of left times daily for 5 forearm, initial days. encounter, Superficial burn of abdominal wall, initial encounter Active Problems Problem Noted Date Altered mental [...] 11/19/2018 Obesity (BMI 30-39.9) 11/16/2018 Jaundice 11/15/2018 Encounters Date Type Specialty Care Team Description 08/04/19 Emergency Emergency Medicine [place], 20 Izabel Griffiths DO 07/30/19 Case Gastroenterology Iza, Orders 20 Management MD Gladis 07/29/19 Case Gastroenterology Iza, Transplant Status Update 20 Management MD Gladis (Attempt to ca ll patient re: inactive on lis t) 07/26/19 Case Gastroenterology Iza, Orders 20 Sunni Griffith MD 07/26/19 Case Gastroenterology Iza, Transplant Status Update 20 Management MD Gladis (Inactive on U NOS Waitlist) 07/25/19 Emergency Emergency Medicine Micaela, Superfici al burn of left forearm, initial encounter (Primary Dx); 20 ELIJAH Velazco Superficial bur n of abdominal wall, initial encounter 07/25/19 Case Gastroenterology Iza, Orders 20 Sunni Griffith MD 07/22/19 Case Gastroenterology Iza, Other (Beha vioral Issues) 20 Management MD Gladis 07/19/19 Anesthesia Surgery [facility], 20 Event MD Ayo Levine Miranda, SPLITTER HAND 07/19/19 Surgery Surgery Isacc Nguyễn ESOPHAGOGASTRO DUODENOSCOPY 20 MD Bryanna 07/19/19 Telephone Gastroenterology Iza, Notificatio n 20 MD Gladis 07/18/19 Emergency Medicine - Inpatient Hinojosa, Altered mental status 20 - only ELIJAH Velazco 07/19/19 Samir, Sofia Welch MD 07/18/19 Telephone Surgery Latiolais, Social Work (fo llow up) 20 Chantelle Maya LCSW 07/18/19 Telephone Surgery Mohinder, Social Work (fo llow up) 20 GREY WrightW 07/18/19 Case Gastroenterology Iza, Other (beha vior issues) 20 Management MD Gladis 07/17/19 Telephone Surgery Iza, Appointment (Li sted liver 20 MD Gladis txpl ) 07/17/19 Case Gastroenterology Iza, Erroneous 20 Management MD Gladis encounter-disr egard; Erroneous encou nter-disregard 07/16/19 Emergency Emergency Medicine Davide Robbins l pain, unspecified abdominal location (Primary Dx); 20 MD Deni Upper abdominal pain; Hepatic cirrhos is, unspecified hepatic cirrhosis type, unspecified whether ascites present; Screening for v iral disease; Awaiting organ transplant status; Encounter for l bill-term (current) use of other medications 07/16/19 Case Gastroenterology Iza, Other (elop ement) 20 Management MD Gladis 07/16/19 Case Gastroenterology Iza, Other (Lynnette ent Update) 20 Management MD Gladis 07/16/19 Transition of Case Management Jesenia Vang n Of Care 20 Care M, RN 07/16/19 Orders Only Doctor 20 Unassigned, Ayr 07/15/19 Anesthesia Pulmonary Disease Perera, 20 Event Malena S, Peter Hernandez, SPLITTER HAND 07/14/19 [facility] Pulmonary Disease Kong, Melena 20 - Encounter MD Nishant 07/15/19 Kulwant Bingham 20 P, Juan R Pritchett MD 07/10/19 [facility], 20 Encounter MD Arnold 07/10/19 Case Gastroenterology Iza, Transplant Status Update 20 Management Jv Guillaume (Listing) 07/10/19 Case Gastroenterology Iza, ABO Verific ation 20 Management MD Gladis 07/09/19 Director Hospice Operations Phlebotomy [facility], HCC (hepatocell ular carcinoma); 20 Visit Jv Guillaume, Pre-transplan t evaluation for chronic liver disease; Pulmonary hypertension; Pob, Adc Lab Hepatic cirrhos is, unspecified hepatic cirrhosis type, unspecified whether ascites present Main 07/09/19 Case Gastroenterology Iza, Orders 20 Management Jv Guillaume MD 07/08/19 Office Visit Cardiology Yandel Jaeger, Pulmonary hyp ertension (Primary Dx); 20 Hepatic cirrhos is, unspecified hepatic cirrhosis type, unspecified whether ascites present 07/08/19 Case Gastroenterology [facility], New Evaluat ion 20 Management Jv Guillaume MD 07/05/19 Transition of Case Management Dali, Transition Of Care 20 Care Jessica Gould RN 07/03/19 [facility] Surgery Faulconer, Hepatic encepha lopathy 20 - Encounter DO Juliet 07/04/19 Sofia Cleaning MD 07/02/19 Case Gastroenterology Iza, Orders 20 Management MD Gladis 07/01/19 Orders Only Doctor 20 Unassigned, Ayr 06/28/19 [facility] Radiology [facility], 20 Encounter MD Gladis 06/25/19 [facility] Radiology [facility], 20 Encounter MD Avel 06/25/19 [facility] Radiology [facility], 20 Encounter MD Avel 06/25/19 Office Visit Surgery [facility], HCC (hepatocell ular 20 MD Avel carcinoma) (Patrica martinez Dx) 06/21/19 [facility], Encounter MD Gldais 06/21/19 Director Hospice Operations Phlebotomy [facility], Pre-transplant evaluation for chronic liver disease; 20 Visit MD Gladis Acute upper GI bleed Vtc-Lab 06/21/19 Office Visit Gastroenterology [facility], Pre-transpl ant evaluation for 20 MD Gladis chronic liver disease (Primary Dx) 06/21/19 Wagon Driver Surgery [facility], 20 Visit MD Gladis Wagon Driver, Transplant 06/21/19 Case Surgery [facility], Social Work (in itial 20 Management MD Gladis psychosocial assessment ) Worker, Transplant Social 06/21/19 Nurse Visit Surgery [facility], HCC (hepatocell ular 20 MD Gladis carcinoma) (Primary Dx) Nurse, Transplant 06/21/19 Case Gastroenterology [facility], Orders 20 Management MD Gladis 06/20/19 Case Gastroenterology [facility], Transplant Status Update 20 Management MD Gladis (Evaluation Or ders) 06/17/19 Telephone Gastroenterology [facility], Pre Evaluat ion; Appointment 20 MD Gladis 06/14/19 [facility], 20 Encounter Jv Guillaume MD 06/13/19 Orders Only Doctor 20 Unassigned, Ayr 06/13/19 Telephone Surgery [facility], Intake Referral (Liver Txpl 20 Shauna Allen ) 06/12/19 Emergency Emergency Medicine Isabel Chong Acute f ebrile illness (Primary Dx); 20 SMD Fever in adult 06/07/19 Emergency Emergency Medicine Isabel Chong a (Primary Dx); 20 SMD Blood in stool; Alcoholic cirrh osis of liver with ascites; Hepatocellular carcinoma; Anemia of chron ic disease 06/02/19 Emergency Emergency Medicine Greg Hinojosa ed abdominal pain (Primary Dx); 20 - Juan A, ANESTHESIOLOGY CRNA Enteritis; 06/03/19 Colitis; 20 Abdominal pain, left upper quadrant; Abdominal pain, left lower quadrant; Dizziness; Weakness; Cirrhosis of li trever with ascites, unspecified hepatic cirrhosis type; Hyponatremia 05/29/19 Surgery Surgery Mahmood, ESOPHAGOGASTROD UODENOSCOPY 20 MD January 05/29/19 Anesthesia Surgery [place]ilipp[place], 20 Event MD Aaron Castillo Tonette M, RN 05/29/19 Hospital Surgery [facility], 20 Encounter MD John Sin Mohammad J, MD 05/22/19 Orders Only Doctor 20 Unassigned, Ayr 05/17/19 Transition of Case Management Gagandeep, Transition Of Care 20 Care Larry Welch RN 05/12/19 [facility] Medicine - Inpatient Garibay, Spontan eous bacterial 20 - Encounter only MD Rashid peritonitis 05/16/19 Aram Young MD 20 05/12/19 Orders Only Doctor 20 Unassigned, Ayr 05/11/19 Emergency Emergency Medicine Mehdi, Viral syn drome (Primary Dx); 20 - Priyanka, ANESTHESIOLOGY CRNA Generalized abd ominal pain; 05/12/19 Fever, unspecif ied fever cause; 20 Urinary retenti on; Transaminitis 05/10/19 Emergency Emergency Medicine Skyler Loo Leg cramp s (Primary Dx); 20 MD Francesco Hypomagnesemia from Last 3 Months Immunizations Name Administration Dates Next Due HEP B, Adult Dosage 04/15/2019 Influenza Virus Vaccine 12/23/2018, 01/22/2018 Pneumococcal 13 Conjugate, PCV13 (Prevnar 13) 11/21/2018 Td 08/04/2019 Family History Medical History Relation Name Comments Diabetes Father Hypertension Mother Liver Cancer NoFHx Relation Name Status Comments Father Mother Social History Tobacco Use Types Packs/Day Years Used Date Never Smoker Smokeless Tobacco: Never Used Tobacco Cessation: Counseling Given: No Alcohol Use Drinks/Week oz/Week Comments Yes Reports [...] Travel End No recent travel history available. Last Filed Vital Signs Vital Sign Reading [...] Mass Index 27.32 08/04/2019 4:02 AM CDT Plan of Treatment Date Type Specialty Care Team Description 08/21/2019 Director Hospice Operations Visit Phlebotomy Pob, Adc Lab Main 08/21/2019 Appointment Radiology Raquel Couch MD [address] [place] [address] [phone] 08/21/2019 Appointment Radiology Raquel Couch MD [address] [place] [address] [phone] 08/21/2019 Appointment Raquel Hutchinson MD [address] [place] [address] [phone] 08/21/2019 Appointment Radiology Raquel Couch MD [address] [place] [address] [phone] 08/28/2019 Appointment Cardiac Chair And Couch Maker Yandel Jaeger MD [address] [facility] [address] [place] [address] [phone] Provider, Shell Cardiac 2, Clc Cardiac Proc Room Health Maintenance Due Date Last Done Comments DTaP,Tdap,and Td Vaccines (1 - Tdap) 1986 08/04/2019 PNEUMOCOCCAL 0-64 YEARS COMBINED SERIES (2 01/16/201911/21 of 3 - PPSV23) INFLUENZA VACCINE Completed 12/23/2018, 01/22/2018 Procedures Procedure Name Priority Date/Time Associated Comments Diagnosis EMERGENCY SERVICES AGREEMENTS Routine 07/25/2019 AND AUTHORIZATIONS 12:01 AM CDT FIBRINOGEN Routine 07/19/2019 Results for 5:21 PM CDT this procedure are in the results section. ESOPHAGOGASTRODUODENOSCOPY Level 4 07/19/2019 Liver transpla nt (within 0-5 1:05 PM CDT candidate days) Melena PREPARE CRYOPRECIPITATE Routine 07/19/2019 Resu lts for 11:45 AM CDT this procedure are in the results section. PHOSPHORUS Add-on 07/19/2019 Results for 11:33 AM CDT this procedure are in the results section. THYROID STIMULATING HORMONE Add-on 07/19/2019 Results for 11:33 AM CDT this procedure are in the results section. GALV ONLY - SYPHILIS IGG/IGM Add-on 07/19/2019 Results for 11:33 AM CDT this procedure are in the results section. SERUM DRUG (IMMUNOASSAY) - STAT 07/19/2019 R esults for COMPREHENSIVE DRUG SCREEN 11:33 AM CDT th is procedure are in the results section. ETHYLENE GLYCOL Routine 07/19/2019 Results for 11:33 AM CDT this procedure are in the results section. PREPARE CRYOPRECIPITATE Routine 07/19/2019 Resu lts for 9:47 AM CDT this procedure are in the results section. EGD (ENDO) Routine 07/19/2019 7:39 AM CDT US ABDOMEN LIMITED WITH DOPPLER Routine 07/19/2019 Altered m ental Results for 6:50 AM CDT status, this unspecified procedure are altered mental in the status type results Alcoholic section. cirrhosis of liver with ascites ETHANOL Add-on 07/19/2019 Results for 5:22 AM CDT this procedure are in the results section. CBC WITH DIFFERENTIAL Routine 07/19/2019 Result s for 5:22 AM CDT this procedure are in the results section. FIBRINOGEN Routine 07/19/2019 Results for 5:22 AM CDT this procedure are in the results section. ACTIVATED PARTIAL THRMPLAS FRANCISCA Routine 07/19/2019 Results for 5:22 AM CDT this procedure are in the results section. PROTHROMBIN TIME / INR Routine 07/19/2019 Resul ts for 5:22 AM CDT this procedure are in the results section. MAGNESIUM Routine 07/19/2019 Results for 5:22 AM CDT this procedure are in the results section. HEPATIC FUNCTION PANEL (47330) Routine 07/19/2019 Results for (ALB,T.PRO,BILI 5:22 AM CDT this T,BU/BC,ALT,AST,ALK PHOS) pr ocedure are in the results section. BASIC METABOLIC PANEL (NA, K, Routine 07/19/2019 Results for CL, CO2, GLUCOSE, BUN, 5:22 AM CDT this CREATININE, CA) procedure ar e in the results section. CBC WITH DIFFERENTIAL Routine 07/19/2019 Result s for 5:22 AM CDT this procedure are in the results section. TRANSFUSE CRYOPRECIPITATE Routine 07/19/2019 12:57 AM CDT PREPARE CRYOPRECIPITATE Routine 07/19/2019 Resu lts for 12:01 AM CDT this procedure are in the results section. URINALYSIS STAT 07/18/2019 Lethargy Results for 11:20 PM CDT this procedure are in the results section. URINE DRUG (LCMSMS) - OPIATES Routine 07/18/2019 Results for PANEL 11:18 PM CDT this procedure are in the results section. URINE DRUG (LCMSMS) - SYNTHETIC Routine 07/18/2019 Results for OPIATES PANEL 11:18 PM CDT this procedure are in the results section. GALV/CLC ONLY - URINE DRUG Routine 07/18/2019 R esults for (IMMUNOASSAY) - COMPREHENSIVE 11:18 PM CDT this DRUG SCREEN procedure are in the results section. URINE CULTURE Routine 07/18/2019 Results for 11:18 PM CDT this procedure are in the results section. BLOOD CULTURE SCREEN RUPERT 07/18/2019 Results for 10:41 PM CDT this procedure are in the results section. BLOOD CULTURE SCREEN [facility] 07/18/2019 Results for 10:40 PM CDT this procedure are in the results section. HB ABO GROUPING Routine 07/18/2019 Results for 10:35 PM CDT this procedure are in the results section. XR CHEST 1 VW Routine 07/18/2019 Altered mental Results for 10:20 PM CDT status, this unspecified procedure are altered mental in the status type results section. CT HEAD WO CONTRAST STAT 07/18/2019 Lethargy Results for 7:31 PM CDT this procedure are in the results section. EKG-12 LEAD Routine 07/18/2019 6:50 PM CDT EXTRA TUBE LAV STAT 07/18/2019 6:49 PM CDT VITAMIN B12, LEVEL Add-on 07/18/2019 Results f or 6:49 PM CDT this procedure are in the results section. FOLATE Add-on 07/18/2019 Results for 6:49 PM CDT this procedure are in the results section. GLYCOSYLATED HEMOGLOBIN (A1C) Add-on 07/18/2019 Results for 6:49 PM CDT this procedure are in the results section. FIBRINOGEN Add-on 07/18/2019 Results for 6:49 PM CDT this procedure are in the results section. CBC WITH DIFFERENTIAL STAT 07/18/2019 Lethargy Result s for 6:49 PM CDT this procedure are in the results section. CK (CREATINE KINASE) + MB STAT 07/18/2019 Lethargy Re sults for 6:49 PM CDT this procedure are in the results section. TROPONIN I STAT 07/18/2019 Lethargy Results for 6:49 PM CDT this procedure are in the results section. ACTIVATED PARTIAL THRMPLAS FRANCISCA STAT 07/18/2019 Lethargy Results for 6:49 PM CDT this procedure are in the results section. PROTHROMBIN TIME / INR STAT 07/18/2019 Lethargy Resul ts for 6:49 PM CDT this procedure are in the results section. AMMONIA, PLASMA STAT 07/18/2019 Lethargy Results for 6:49 PM CDT this procedure are in the results section. COMP. METABOLIC PANEL (00419) STAT 07/18/2019 Lethargy Results for 6:49 PM CDT this procedure are in the results section. CBC WITH DIFFERENTIAL Routine 07/18/2019 Lethargy Result s for 6:49 PM CDT this procedure are in the results section. EKG-12 LEAD STAT 07/18/2019 6:44 PM CDT HOSPITAL ADMISSION Routine 07/18/2019 12:01 AM CDT CBC WITH DIFFERENTIAL STAT 07/16/2019 Abdominal pain, Res ults for 6:44 PM CDT unspecified this abdominal procedure are location in the results section. AMMONIA, PLASMA STAT 07/16/2019 Abdominal pain, Results f or 6:44 PM CDT unspecified this abdominal procedure are location in the results section. ACTIVATED PARTIAL THRMPLAS FRANCISCA STAT 07/16/2019 Abdominal pain, Results for 6:44 PM CDT unspecified this abdominal procedure are location in the results section. PROTHROMBIN TIME / INR STAT 07/16/2019 Abdominal pain, Re sults for 6:44 PM CDT unspecified this abdominal procedure are location in the results section. LIPASE STAT 07/16/2019 Abdominal pain, Results for 6:44 PM CDT unspecified this abdominal procedure are location in the results section. HEPATIC FUNCTION PANEL (30490) STAT 07/16/2019 Abdominal pain, Results for (ALB,T.PRO,BILI 6:44 PM CDT unspecified this T,BU/BC,ALT,AST,ALK PHOS) abdominal pr ocedure are location in the results section. BASIC METABOLIC PANEL (NA, K, STAT 07/16/2019 Abdominal p ain, Results for CL, CO2, GLUCOSE, BUN, 6:44 PM CDT unspecified this CREATININE, CA) abdominal procedure ar e location in the results section. CBC WITH DIFFERENTIAL Routine 07/16/2019 Abdominal pain, Res ults for 6:44 PM CDT unspecified this abdominal procedure are location in the results section. CONSENT/REFUSAL FOR DIAGNOSIS Routine 07/16/2019 AND TREATMENT 2:20 AM CDT EMERGENCY SERVICES AGREEMENTS Routine 07/16/2019 AND AUTHORIZATIONS 12:01 AM CDT URINE DRUG (LCMSMS) - OPIATES [facility] 07/15/2019 Results for PANEL 4:33 PM CDT this procedure are in the results section. URINE DRUG (LCMSMS) - SYNTHETIC [facility] 07/15/2019 Results for OPIATES PANEL 4:33 PM CDT this procedure are in the results section. GALV/CLC ONLY - URINE DRUG [facility] 07/15/2019 R esults for (IMMUNOASSAY) - COMPREHENSIVE 4:33 PM CDT this DRUG SCREEN procedure are in the results section. TRANSFUSE PACKED RBC [facility] 07/15/2019 3:26 PM CDT CBC WITH DIFFERENTIAL STAT 07/15/2019 Result s for 3:11 PM CDT this procedure are in the results section. CBC WITH DIFFERENTIAL STAT 07/15/2019 Result s for 3:11 PM CDT this procedure are in the results section. ACTIVATED PARTIAL THRMPLAS FRANCISCA [facility] 07/15/2019 Results for 3:11 PM CDT this procedure are in the results section. PROTHROMBIN TIME / INR [facility] 07/15/2019 Resul ts for 3:11 PM CDT this procedure are in the results section. FIBRINOGEN [facility] 07/15/2019 Results for 3:11 PM CDT this procedure are in the results section. IR Routine 07/15/2019 Chronic liver Results for PARACENTESIS/PERITONECENTESIS 1:55 PM CDT failure wit hout this WITH IMAGING hepatic coma procedure are in the results section. CYTO ABDOMINAL FLUID Routine 07/15/2019 Results for 1:48 PM CDT this procedure are in the results section. LDH TOTAL BODY FLUID [facility] 07/15/2019 Results for 1:47 PM CDT this procedure are in the results section. T.PROTEIN BODY FLUID [facility] 07/15/2019 Results for 1:47 PM CDT this procedure are in the results section. LIPASE BODY FLUID [facility] 07/15/2019 Results fo r 1:47 PM CDT this procedure are in the results section. GLUCOSE BODY FLUID [facility] 07/15/2019 Results f or 1:47 PM CDT this procedure are in the results section. AMYLASE BODY FLUID [facility] 07/15/2019 Results f or 1:47 PM CDT this procedure are in the results section. ALBUMIN BODY FLUID [facility] 07/15/2019 Results f or 1:47 PM CDT this procedure are in the results section. BODY FLUID MANUAL DIFF [facility] 07/15/2019 Resul ts for 1:46 PM CDT this procedure are in the results section. BODY FLUID DIRECT COUNT [facility] 07/15/2019 Resu lts for 1:46 PM CDT this procedure are in the results section. FUNGUS (ROUTINE) CULTURE [facility] 07/15/2019 1:46 PM CDT BODY FLUID [facility] 07/15/2019 Results for CULTURE(AEROBIC/ANAEROBIC) 1:46 PM CDT t his procedure are in the results section. BODY FLUID DIRECT COUNT [facility] 07/15/2019 Resu lts for 1:46 PM CDT this procedure are in the results section. URINE CULTURE [facility] 07/15/2019 Results for 10:41 AM CDT this procedure are in the results section. TRANSFUSE CRYOPRECIPITATE [facility] 07/15/2019 10:40 AM CDT PREPARE PACKED RBC Routine 07/15/2019 Results f or 10:17 AM CDT this procedure are in the results section. BLOOD CULTURE SCREEN [facility] 07/15/2019 Results for 9:53 AM CDT this procedure are in the results section. BLOOD CULTURE SCREEN [facility] 07/15/2019 Results for 9:53 AM CDT this procedure are in the results section. PREPARE CRYOPRECIPITATE [facility] 07/15/2019 Resu lts for 9:37 AM CDT this procedure are in the results section. LACTIC ACID WHOLE BLOOD STAT 07/15/2019 Resu lts for 9:06 AM CDT this procedure are in the results section. PROFILE / HEMOGRAM [facility] 07/15/2019 Results f or 6:49 AM CDT this procedure are in the results section. FIBRINOGEN [facility] 07/15/2019 Results for 6:49 AM CDT this procedure are in the results section. XR ANKLE <3 VW RIGHT [facility] 07/15/2019 Chronic pain of Resu lts for 4:17 AM CDT left ankle this procedure are in the results section. MRSA / MSSA SCREEN BY PCR, [facility] 07/15/2019 R esults for NARES 4:09 AM CDT this procedure are in the results section. HB ABO GROUPING STAT 07/15/2019 Results for 4:08 AM CDT this procedure are in the results section. ACTIVATED PARTIAL THRMPLAS FRANCISCA STAT 07/14/2019 Generalize d Results for 11:59 PM CDT abdominal pain this procedure are in the results section. PROTHROMBIN TIME / INR STAT 07/14/2019 Generalized Resul ts for 11:59 PM CDT abdominal pain this procedure are in the results section. URINALYSIS STAT 07/14/2019 Confused Results for 11:39 PM CDT Generalized this abdominal pain procedure are in the results section. GAMMA GLUTAMYLTRANSFERASE Add-on 07/14/2019 Re sults for 11:35 PM CDT this procedure are in the results section. CBC WITH DIFFERENTIAL STAT 07/14/2019 Confused Results for 11:35 PM CDT Generalized this abdominal pain procedure are in the results section. LIPASE STAT 07/14/2019 Confused Results for 11:35 PM CDT Generalized this abdominal pain procedure are in the results section. AMYLASE STAT 07/14/2019 Confused Results for 11:35 PM CDT Generalized this abdominal pain procedure are in the results section. COMP. METABOLIC PANEL (75930) STAT 07/14/2019 Co nfused Results for 11:35 PM CDT Generalized this abdominal pain procedure are in the results section. CBC WITH DIFFERENTIAL STAT 07/14/2019 Confused Results for 11:35 PM CDT Generalized this abdominal pain procedure are in the results section. AMMONIA, PLASMA STAT 07/14/2019 Confused Results for 11:35 PM CDT Generalized this abdominal pain procedure are in the results section. HOSPITAL ADMISSION Routine 07/14/2019 12:01 AM CDT EMERGENCY SERVICES AGREEMENTS Routine 07/14/2019 AND AUTHORIZATIONS 12:01 AM CDT CBC WITH DIFFERENTIAL Routine 07/09/2019 Pre-transplant Resu lts for 3:31 PM CDT evaluation for this chronic liver procedure are disease in the results section. ACTIVATED PARTIAL THRMPLAS FRANCISCA Routine 07/09/2019 Pulmonary Results for 3:31 PM CDT hypertension this Hepatic procedure are cirrhosis, in the unspecified results hepatic section. cirrhosis type, unspecified whether ascites present BASIC METABOLIC PANEL (NA, K, Routine 07/09/2019 Pre-transpl ant Results for CL, CO2, GLUCOSE, BUN, 3:31 PM CDT evaluation for thi s CREATININE, CA) chronic liver procedure a re disease in the results section. PROTHROMBIN TIME / INR Routine 07/09/2019 Pre-transplant Res ults for 3:31 PM CDT evaluation for this chronic liver procedure are disease in the results section. HEPATIC FUNCTION PANEL (74661) Routine 07/09/2019 Pre-transp lant Results for (ALB,T.PRO,BILI 3:31 PM CDT evaluation for this T,BU/BC,ALT,AST,ALK PHOS) chronic liver p rocedure are disease in the results section. CBC WITH DIFFERENTIAL Routine 07/09/2019 Pre-transplant Resu lts for 3:31 PM CDT evaluation for this chronic liver procedure are disease in the results section. [facility] PATIENT FINANCIAL POLICY Routine 07/08/2019 9:34 AM CDT NO SHOW OR MISSED APPOINTMENT Routine 07/08/2019 POLICY ACKNOWLEDGEMENT 9:33 AM CDT URINALYSIS STAT 07/04/2019 Confusion Results for 9:13 AM CDT this procedure are in the results section. MAGNESIUM Add-on 07/04/2019 Results for 12:12 AM CDT this procedure are in the results section. CBC WITH DIFFERENTIAL STAT 07/04/2019 Confusion Result s for 12:12 AM CDT this procedure are in the results section. CBC WITH DIFFERENTIAL Routine 07/04/2019 Confusion Result s for 12:12 AM CDT this procedure are in the results section. BILI UNCONJUGATED/BILI CONJUG STAT 07/04/2019 Confusion Results for 12:12 AM CDT this procedure are in the results section. COMP. METABOLIC PANEL (76106) STAT 07/04/2019 Confusion Results for 12:12 AM CDT this procedure are in the results section. AMMONIA, PLASMA STAT 07/04/2019 Confusion Results for 12:01 AM CDT this procedure are in the results section. HOSPITAL ADMISSION Routine 07/03/2019 12:01 AM CDT EMERGENCY DEPARTMENT DOCUMENTS Routine 07/03/2019 12:01 AM CDT AUTHORIZATION FOR RELEASE OF Routine 07/01/2019 PHI 12:01 AM CDT MR ABDOMEN W WO CONTRAST Routine 06/25/2019 HCC Res ults for 6:53 PM BAG WASHER (hepatocellular this carcinoma) procedure are in the results section. AUTHORIZATION FOR RELEASE OF Routine 06/25/2019 PHI 12:[address] ABDOMEN PELVIS W WO CONTRAST STAT 06/21/2019 Pre-trans plant Results for 2:57 PM BAG WASHER evaluation for this chronic liver procedure are disease in the results section. URINALYSIS RUPERT 06/21/2019 Acute upper GI Results for 10:00 AM BAG W[facility]ER bleed this procedure are in the results section. SODIUM, URINE RANDOM Routine 06/21/2019 Pre-transplant Resul ts for 10:00 AM BAG W[facility]ER evaluation for this chronic liver procedure are disease in the results section. TOTAL PROTEIN, URINE RANDOM Routine 06/21/2019 Pre-transplan t Results for 10:00 AM BAG W[facility]ER evaluation for this chronic liver procedure are disease in the results section. CREATININE, URINE RANDOM Routine 06/21/2019 Pre-transplant R esults for 10:00 AM BAG W[facility]ER evaluation for this chronic liver procedure are disease in the results section. MAGNESIUM, URINE RANDOM Routine 06/21/2019 Pre-transplant Re sults for 10:00 AM BAG W[facility]ER evaluation for this chronic liver procedure are disease in the results section. URINE DRUG (LCMSMS) - Routine 06/21/2019 Pre-transplant Resu lts for COMPREHENSIVE DRUG PANEL WITH 10:00 AM BAG W[facility]ER evaluation for this CONSULT chronic liver procedure are disease in the results section. CBC WITH DIFFERENTIAL Routine 06/21/2019 Pre-transplant Resu lts for 9:54 AM BAG W[facility]ER evaluation for this chronic liver procedure are disease in the results section. HB ABO GROUPING Routine 06/21/2019 Pre-transplant Results fo r 9:54 AM BAG W[facility]ER evaluation for this chronic liver procedure are disease in the results section. G6PD SCREENING TEST Routine 06/21/2019 Pre-transplant Result s for 9:54 AM BAG W[facility]ER evaluation for this chronic liver procedure are disease in the results section. VITAMIN K1, LEVEL Routine 06/21/2019 Pre-transplant Results for 9:54 AM BAG W[facility]ER evaluation for this chronic liver procedure are disease in the results section. VITAMIN E, SERUM OR PLASMA Routine 06/21/2019 Pre-transplant Results for 9:54 AM BAG W[facility]ER evaluation for this chronic liver procedure are disease in the results section. VITAMIN D, 25-OH Routine 06/21/2019 Pre-transplant Results f or 9:54 AM BAG W[facility]ER evaluation for this chronic liver procedure are disease in the results section. VITAMIN A, SERUM OR PLASMA Routine 06/21/2019 Pre-transplant Results for 9:54 AM BAG W[facility]ER evaluation for this chronic liver procedure are disease in the results section. CRYPTOCOCCAL ANTIGEN CSF/SERUM Routine 06/21/2019 Pre-transp lant Results for 9:54 AM BAG W[facility]ER evaluation for this chronic liver procedure are disease in the results section. ZINC, SERUM Routine 06/21/2019 Pre-transplant Results for 9:54 AM BAG W[facility]ER evaluation for this chronic liver procedure are disease in the results section. TOXOPLASMA IGG ANTIBODY Routine 06/21/2019 Pre-transplant Re sults for 9:54 AM BAG W[facility]ER evaluation for this chronic liver procedure are disease in the results section. QUANTIFERON-TB ASSAY Routine 06/21/2019 Pre-transplant Resul ts for 9:54 AM BAG W[facility]ER evaluation for this chronic liver procedure are disease in the results section. IMMUNOGLOBULIN G A M PANEL Routine 06/21/2019 Pre-transplant Results for 9:54 AM BAG W[facility]ER evaluation for this chronic liver procedure are disease in the results section. HSV 1 AND 2 GLYCOPROTEIN G IGG Routine 06/21/2019 Pre-transp lant Results for 9:54 AM BAG W[facility]ER evaluation for this chronic liver procedure are disease in the results section. BASIC METABOLIC PANEL (NA, K, Routine 06/21/2019 Pre-transpl ant Results for CL, CO2, GLUCOSE, BUN, 9:54 AM BAG WASHER evaluation for thi s CREATININE, CA) chronic liver procedure a re disease in the results section. HEPATIC FUNCTION PANEL (79657) Routine 06/21/2019 Pre-transp lant Results for (ALB,T.PRO,BILI 9:54 AM BAG W[facility]ER evaluation for this T,BU/BC,ALT,AST,ALK PHOS) chronic liver p rocedure are disease in the results section. GAMMA GLUTAMYLTRANSFERASE Routine 06/21/2019 Pre-transplant Results for 9:54 AM BAG W[facility]ER evaluation for this chronic liver procedure are disease in the results section. GLYCOSYLATED HEMOGLOBIN (A1C) Routine 06/21/2019 Pre-transpl ant Results for 9:54 AM BAG W[facility]ER evaluation for this chronic liver procedure are disease in the results section. PROTHROMBIN TIME / INR Routine 06/21/2019 Pre-transplant Res ults for 9:54 AM BAG W[facility]ER evaluation for this chronic liver procedure are disease in the results section. ACTIVATED PARTIAL THRMPLAS FRANCISCA Routine 06/21/2019 Pre-transp lant Results for 9:54 AM BAG W[facility]ER evaluation for this chronic liver procedure are disease in the results section. FERRITIN SERUM Routine 06/21/2019 Pre-transplant Results for 9:54 AM BAG W[facility]ER evaluation for this chronic liver procedure are disease in the results section. ANTI-NUCLEAR ANTIBODY SCREEN Routine 06/21/2019 Pre-transpla nt Results for 9:54 AM BAG W[facility]ER evaluation for this chronic liver procedure are disease in the results section. CHOLESTEROL Routine 06/21/2019 Pre-transplant Results for 9:54 AM BAG W[facility]ER evaluation for this chronic liver procedure are disease in the results section. CBC WITH DIFFERENTIAL Routine 06/21/2019 Pre-transplant Resu lts for 9:54 AM BAG W[facility]ER evaluation for this chronic liver procedure are disease in the results section. ALPHA FETOPROTEIN Routine 06/21/2019 Pre-transplant Results for 9:54 AM BAG W[facility]ER evaluation for this chronic liver procedure are disease in the results section. IRON Routine 06/21/2019 Pre-transplant Results for 9:54 AM BAG W[facility]ER evaluation for this chronic liver procedure are disease in the results section. TOTAL IRON BINDING CAPACITY Routine 06/21/2019 Pre-transplan t Results for 9:54 AM BAG W[facility]ER evaluation for this chronic liver procedure are disease in the results section. THYROID STIMULATING HORMONE Routine 06/21/2019 Pre-transplan t Results for 9:54 AM BAG W[facility]ER evaluation for this chronic liver procedure are disease in the results section. TRIIODOTHYRONINE Routine 06/21/2019 Pre-transplant Results f or 9:54 AM BAG W[facility]ER evaluation for this chronic liver procedure are disease in the results section. THYROXINE, TOTAL Routine 06/21/2019 Pre-transplant Results f or 9:54 AM BAG [facility]ER evaluation for this chronic liver procedure are disease in the results section. TEST, SERUM Routine 06/21/2019 Pre-transplant Resu lts for 9:54 AM BAG W[facility]ER evaluation for this chronic liver procedure are disease in the results section. HEPATITIS B SURFACE ANTIGEN Routine 06/21/2019 Pre-transplan t Results for 9:54 AM BAG W[facility]ER evaluation for this chronic liver procedure are disease in the results section. HEPATITIS B SURFACE ANTIBODY Routine 06/21/2019 Pre-transpla nt Results for 9:54 AM BAG W[facility]ER evaluation for this chronic liver procedure are disease in the results section. HBC ANTIBODY (IGM & IGG) Routine 06/21/2019 Pre-transplant R esults for 9:54 AM BAG W[facility]ER evaluation for this chronic liver procedure are disease in the results section. HCV ANTIBODY Routine 06/21/2019 Pre-transplant Results for 9:54 AM BAG W[facility]ER evaluation for this chronic liver procedure are disease in the results section. HAV ANTIBODY (IGG AND IGM) Routine 06/21/2019 Pre-transplant Results for 9:54 AM BAG W[facility]ER evaluation for this chronic liver procedure are disease in the results section. EBV NUCLEAR ANTIGEN IGG TEST Routine 06/21/2019 Pre-transpla nt Results for 9:54 AM BAG W[facility]ER evaluation for this chronic liver procedure are disease in the results section. CYTOMEGALOVIRUS ANTIBODY IGG Routine 06/21/2019 Pre-transpla nt Results for 9:54 AM BAG [facility]ER evaluation for this chronic liver procedure are disease in the results section. MEASLES IGG Routine 06/21/2019 Pre-transplant Results for 9:54 AM BAG W[facility]ER evaluation for this chronic liver procedure are disease in the results section. RUBELLA SCREEN IGG Routine 06/21/2019 Pre-transplant Results for 9:54 AM BAG W[facility]ER evaluation for this chronic liver procedure are disease in the results section. VZV ANTIBODY SCREEN Routine 06/21/2019 Pre-transplant Result s for 9:54 AM BAG W[facility]ER evaluation for this chronic liver procedure are disease in the results section. HIV 1/2 AG-AB WITH REFLEX Routine 06/21/2019 Pre-transplant Results for 9:54 AM BAG [facility] evaluation for this chronic liver procedure are disease in the results section. GALV ONLY - SYPHILIS IGG/IGM Routine 06/21/2019 Pre-transpla nt Results for 9:54 AM BAG [facility] evaluation for this chronic liver procedure are disease in the results section. HB ABO GROUPING Routine 06/21/2019 Pre-transplant Results fo r 9:44 AM BAG [facility]ER evaluation for this chronic liver procedure are disease in the results section. CONSENT FOR TRANSPLANT Routine 06/21/2019 EVALUATION 12:01 AM BAG W[facility]ER HB HLA TYPE; A B C MULTI AG Routine 06/21/2019 Pre-transplan t Results for 12:00 AM BAG W[facility]ER evaluation for this chronic liver procedure are disease in the results section. HB HLA CLASS I/II ANTIBODY QUAL Routine 06/21/2019 Pre-trans plant Results for 12:00 AM BAG W[facility]ER evaluation for this chronic liver procedure are disease in the results section. HB LYMPHOCYTOTOX VXM; W TITRATE Routine 06/21/2019 Pre-trans plant Results for 12:00 AM BAG W[facility]ER evaluation for this chronic liver procedure are disease in the results section. TRANSPLANT/EXTERNAL PROVIDED - Routine 06/13/2019 REFERRAL PACKET 12:01 AM BAG W[facility]ER XR CHEST 1 VW STAT 06/12/2019 Fever in adult Results for 2:02 AM BAG W[facility]ER this procedure are in the results section. CBC WITH DIFFERENTIAL STAT 06/12/2019 Fever in adult Resu lts for 1:24 AM BAG W[facility]ER this procedure are in the results section. LIPASE STAT 06/12/2019 Fever in adult Results for 1:24 AM BAG W[facility]ER this procedure are in the results section. AMMONIA, PLASMA STAT 06/12/2019 Fever in adult Results fo r 1:24 AM BAG W[facility]ER this procedure are in the results section. ADC,CLC OR LCC ONLY - INFLUENZA STAT 06/12/2019 Fever in adult Results for A & B DIRECT ANTIGEN 1:24 AM BAG W[facility]ER this procedure are in the results section. COMP. METABOLIC PANEL (04769) STAT 06/12/2019 Fever in ad ult Results for 1:24 AM BAG W[facility]ER this procedure are in the results section. CBC WITH DIFFERENTIAL STAT 06/12/2019 Fever in adult Resu lts for 1:24 AM BAG W[facility]ER this procedure are in the results section. URINALYSIS STAT 06/12/2019 Fever in adult Results for 1:24 AM BAG W[facility]ER this procedure are in the results section. ASSIGNMENT OF BENEFITS Routine 06/12/2019 12:47 AM BAG W[facility]ER NOTICE OF PRIVACY PRACTICES Routine 06/12/2019 12:12 AM [facility]AG W[facility]ER CONSENT/REFUSAL FOR DIAGNOSIS Routine 06/12/2019 AND TREATMENT 12:12 AM [facility]AG W[facility]ER AUTHORIZATION FOR RELEASE OF Routine 06/12/2019 PHI 12:01 AM BAG W[facility]ER EMERGENCY SERVICES AGREEMENTS Routine 06/12/2019 AND AUTHORIZATIONS 12:[address] ABDOMEN PELVIS W CONTRAST STAT 06/07/2019 Blood in sto ol Results for 8:54 AM BAG W[facility]ER this procedure are in the results section. URINALYSIS STAT 06/07/2019 Blood in stool Results for 8:36 AM BAG W[facility]ER this procedure are in the results section. AMMONIA, PLASMA STAT 06/07/2019 Blood in stool Results fo r 8:36 AM BAG W[facility]ER this procedure are in the results section. CBC WITH DIFFERENTIAL STAT 06/07/2019 Blood in stool Resu lts for 7:27 AM BAG W[facility]ER this procedure are in the results section. LIPASE STAT 06/07/2019 Blood in stool Results for 7:27 AM BAG W[facility]ER this procedure are in the results section. CBC WITH DIFFERENTIAL Routine 06/07/2019 Blood in stool Resu lts for 7:27 AM BAG W[facility]ER this procedure are in the results section. COMP. METABOLIC PANEL ([id number]) STAT 06/07/[address] ool Results for 7:27 AM BAG W[facility]ER this procedure are in the results section. NOTICE OF PRIVACY PRACTICES Routine 06/07/2019 7:17 AM [facility]AG W[facility]ER CONSENT/REFUSAL FOR DIAGNOSIS Routine 06/07/2019 AND TREATMENT 7:06 AM [facility]AG W[facility]ER EMERGENCY SERVICES AGREEMENTS Routine 06/07/2019 AND AUTHORIZATIONS 12:01 AM BAG W[facility]ER EXTERNAL PROVIDER RECORDS Routine 06/03/2019 12:01 AM BAG W[facility]ER LACTIC ACID WHOLE BLOOD STAT 06/02/2019 Generalized Resu lts for 11:12 PM BAG W[facility]ER abdominal pain this procedure are in the results section. CT ABDOMEN PELVIS W CONTRAST STAT 06/02/2019 Generalized Results for 9:57 PM BAG W[facility]ER abdominal pain this procedure are in the results section. URINE CULTURE STAT 06/02/2019 Generalized Results for 9:57 PM BAG W[facility]ER abdominal pain this procedure are in the results section. URINALYSIS STAT 06/02/2019 Generalized Results for 9:00 PM [facility]AG W[facility]ER abdominal pain this procedure are in the results section. BLOOD CULTURE SCREEN STAT 06/02/2019 Generalized Results for 8:46 PM BAG W[facility]ER abdominal pain this procedure are in the results section. MAGNESIUM STAT Add-On 06/02/2019 Generalized Results for 8:41 PM BAG W[facility]ER abdominal pain this procedure are in the results section. AMMONIA, PLASMA STAT 06/02/2019 Generalized Results for 8:41 PM BAG W[facility]ER abdominal pain this procedure are in the results section. CBC WITH DIFFERENTIAL STAT 06/02/2019 Generalized Result s for 8:41 PM BAG W[facility]ER abdominal pain this procedure are in the results section. LIPASE STAT 06/02/2019 Generalized Results for 8:41 PM BAG W[facility]ER abdominal pain this procedure are in the results section. LACTIC ACID WHOLE BLOOD STAT 06/02/2019 Generalized Resu lts for 8:41 PM BAG W[facility]ER abdominal pain this procedure are in the results section. COMP. METABOLIC PANEL ([id number]) STAT 06/02/2019 Generalized Results for 8:41 PM BAG W[facility]ER abdominal pain this procedure are in the results section. CBC WITH DIFFERENTIAL Routine 06/02/2019 Generalized Result s for 8:41 PM BAG W[facility]ER abdominal pain this procedure are in the results section. EKG-12 LEAD Routine 06/02/2019 8:24 PM BAG W[facility]ER BLOOD CULTURE SCREEN STAT 06/02/2019 Generalized Results for 8:22 PM BAG W[facility]ER abdominal pain this procedure are in the results section. 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, days) unspecified whether ascites present Hematemesis, presence of nausea not specified Diarrhea, unspecified type Liver mass Bleeding esophageal varices, unspecified esophageal varices type Overweight (BMI 25.0-29.9) Dietary counseling and surveillance CONSENT/REFUSAL FOR DIAGNOSIS Routine 05/29/2019 AND TREATMENT 6:22 AM [facility]AG W[facility]ER ASSIGNMENT OF BENEFITS Routine 05/29/2019 6:21 AM BAG W[facility]ER ENDOSCOPY PROCEDURE Routine 05/29/2019 DOCUMENTATION 12:01 AM BAG W[facility]ER DSU PRE-OP Routine 05/27/2019 12:01 AM BAG W[facility]ER EXTERNAL PROVIDER RECORDS Routine 05/27/2019 12:01 AM [facility]AG W[facility]ER REFERRAL- REQUEST/RESPONSE Routine 05/22/2019 12:01 AM BAG W[facility]ER EXTRA TUBE LT. GREEN STAT 05/16/2019 1:43 PM BAG W[facility]ER MAGNESIUM Routine 05/16/2019 Results for 1:35 PM BAG W[facility]ER this procedure are in the results section. BASIC METABOLIC PANEL (NA, K, Routine 05/16/2019 Results for CL, CO2, GLUCOSE, BUN, 1:35 PM BAG WASHER this CREATININE, CA) procedure ar e in the results section. MAGNESIUM Routine 05/16/2019 Results for 4:01 AM BAG W[facility]ER this procedure are in the results section. BASIC METABOLIC PANEL (NA, K, Routine 05/16/2019 Results for CL, CO2, GLUCOSE, BUN, 4:01 AM BAG W[facility]ER this CREATININE, CA) procedure ar e in the results section. AMMONIA, PLASMA Routine 05/15/2019 Results for 3:59 PM BAG W[facility]ER this procedure are in the results section. IR PERIPHERALLY INSERTED DEVICE Routine 05/15/2019 Bacteremi a Results for NON-TUNNELED PICC 5 OR OLDER 3:23 PM BAG WASHER this procedure are in the results section. MAGNESIUM Routine 05/15/2019 Results for 5:33 AM BAG W[facility]ER this procedure are in the results section. BASIC METABOLIC PANEL (NA, K, Routine 05/15/2019 Results for CL, CO2, GLUCOSE, BUN, 5:33 AM BAG W[facility]ER this CREATININE, CA) procedure ar e in the results section. PROTHROMBIN TIME / INR Routine 05/15/2019 Resul ts for 5:30 AM BAG W[facility]ER this procedure are in the results section. XR CHEST 2 VW Routine 05/14/2019 Cough Results for 12:44 PM BAG W[facility]ER this procedure are in the results section. EXTRA TUBE SST Routine 05/14/2019 9:30 AM BAG W[facility]ER IR Routine 05/14/2019 Alcoholic Results for PARACENTESIS/PERITONECENTESIS 9:16 AM BAG W[facility]ER cirrhosis o f this WITH IMAGING liver with procedure are ascites in the results section. BODY FLUID MANUAL DIFF Routine 05/14/2019 Alcoholic Resul ts for 8:39 AM BAG W[facility]ER cirrhosis of this liver with procedure are ascites in the results section. BODY FLUID DIRECT COUNT Routine 05/14/2019 Alcoholic Resu lts for 8:39 AM BAG W[facility]ER cirrhosis of this liver with procedure are ascites in the results section. BODY FLUID Routine 05/14/2019 Alcoholic Results for CULTURE(AEROBIC/ANAEROBIC) 8:39 AM BAG W[facility]ER cirrhosis of t his liver with procedure are ascites in the results section. BODY FLUID DIRECT COUNT Routine 05/14/2019 Alcoholic Resu lts for 8:39 AM BAG W[facility]ER cirrhosis of this liver with procedure are ascites in the results section. COMP. METABOLIC PANEL ([id number]) Routine 05/13/2019 Results for 9:08 AM BAG W[facility]ER this procedure are in the results section. LACTIC ACID WHOLE BLOOD Routine 05/12/2019 Resu lts for 10:40 PM BAG W[facility]ER this procedure are in the results section. PROTHROMBIN TIME / INR STAT 05/12/2019 Positive blood Res ults for 3:15 PM BAG W[facility]ER culture this procedure are in the results section. ACTIVATED PARTIAL THRMPLAS FRANCISCA STAT 05/12/2019 Positive b lood Results for 3:15 PM BAG W[facility]ER culture this procedure are in the results section. LACTIC ACID WHOLE BLOOD STAT 05/12/2019 Positive blood Re sults for 1:58 PM BAG W[facility]ER culture this procedure are in the results section. ETHANOL STAT Add-On 05/12/2019 Positive blood Results for 1:57 PM BAG W[facility]ER culture this procedure are in the results section. ADC / LCC - DRUG SCREEN TRIAGE STAT 05/12/2019 Positive b lood Results for 1:57 PM BAG W[facility]ER culture this procedure are in the results section. CBC WITH DIFFERENTIAL STAT 05/12/2019 Positive blood Resu lts for 1:57 PM BAG W[facility]ER culture this procedure are in the results section. URINALYSIS STAT 05/12/2019 Positive blood Results for 1:57 PM BAG W[facility]ER culture this procedure are in the results section. HEPATIC FUNCTION PANEL (44904) STAT 05/12/2019 Positive b lood Results for (ALB,T.PRO,BILI 1:57 PM BAG W[facility]ER culture this T,BU/BC,ALT,AST,ALK PHOS) pr ocedure are in the results section. BASIC METABOLIC PANEL (NA, K, STAT 05/12/2019 Positive bl ood Results for CL, CO2, GLUCOSE, BUN, 1:57 PM BAG WASHER culture this CREATININE, CA) procedure ar e in the results section. CBC WITH DIFFERENTIAL Routine 05/12/2019 Positive blood Resu lts for 1:57 PM BAG W[facility]ER culture this procedure are in the results section. NOTICE OF PRIVACY PRACTICES Routine 05/12/2019 1:34 PM BAG W[facility]ER CONSENT/REFUSAL FOR DIAGNOSIS Routine 05/12/2019 AND TREATMENT 1:28 PM BAG W[facility]ER HOSPITAL ADMISSION Routine 05/12/2019 12:01 AM BAG W[facility]ER AGREEMENTS AUTHORIZATIONS AND Routine 05/12/2019 IRREVOCABLE ASSIGNMENTS (FORM 12:01 AM BAG WASHER 2000) US GALL BLADDER STAT 05/11/2019 Generalized Results for 11:36 PM BAG W[facility]ER abdominal pain this Fever, procedure are unspecified in the fever cause results section. URINALYSIS STAT 05/11/2019 Generalized Results for 9:10 PM BAG W[facility]ER abdominal pain this Fever, procedure are unspecified in the fever cause results section. URINE CULTURE STAT 05/11/2019 Generalized Results for 9:09 PM BAG W[facility]ER abdominal pain this Fever, procedure are unspecified in the fever cause results section. CT ABDOMEN PELVIS W CONTRAST STAT 05/11/2019 Generalized Results for 8:56 PM BAG W[facility]ER abdominal pain this Fever, procedure are unspecified in the fever cause results section. GRAM NEGATIVE BLOOD PATHOGENS STAT 05/11/2019 Generalized Results for DNA PROBE-ANAEROBIC 8:27 PM BAG W[facility]ER abdominal pa in this Fever, procedure are unspecified in the fever cause results section. BLOOD CULTURE WORKUP STAT 05/11/2019 Generalized Results for 8:27 PM BAG W[facility]ER abdominal pain this Fever, procedure are unspecified in the fever cause results section. BLOOD CULTURE SCREEN STAT 05/11/2019 Generalized Results for 8:27 PM BAG W[facility]ER abdominal pain this Fever, procedure are unspecified in the fever cause results section. LIPASE STAT Add-On 05/11/2019 Generalized Results for 8:06 PM BAG W[facility]ER abdominal pain this procedure are in the results section. CBC WITH DIFFERENTIAL STAT 05/11/2019 Generalized Result s for 8:06 PM BAG W[facility]ER abdominal pain this Fever, procedure are unspecified in the fever cause results section. BLOOD CULTURE SCREEN STAT 05/11/2019 Generalized Results for 8:06 PM BAG WASHER abdominal pain this Fever, procedure are unspecified in the fever cause results section. ADC,CLC OR LCC ONLY - INFLUENZA STAT 05/11/2019 Generaliz ed Results for A & B DIRECT ANTIGEN 8:06 PM BAG WASHER abdominal p ain this Fever, procedure are unspecified in the fever cause results section. AMMONIA, PLASMA STAT 05/11/2019 Generalized Results for 8:06 PM BAG WASHER abdominal pain this Fever, procedure are unspecified in the fever cause results section. COMP. METABOLIC PANEL ([id number]) STAT 05/11/2019 Generalized Results for 8:06 PM BAG WASHER abdominal pain this Fever, procedure are unspecified in the fever cause results section. CBC WITH DIFFERENTIAL STAT 05/11/2019 Generalized Result s for 8:06 PM BAG W[facility]ER abdominal pain this Fever, procedure are unspecified in the fever cause results section. LACTIC ACID WHOLE BLOOD STAT 05/11/2019 Generalized Resu lts for 8:05 PM BAG W[facility]ER abdominal pain this Fever, procedure are unspecified in the fever cause results section. CONSENT/REFUSAL FOR DIAGNOSIS Routine 05/11/2019 AND TREATMENT 7:37 PM BAG WASHER EMERGENCY SERVICES AGREEMENTS Routine 05/11/2019 AND AUTHORIZATIONS 12:01 AM BAG W[facility]ER CBC WITH DIFFERENTIAL STAT 05/10/2019 Leg cramps Result s for 2:50 AM BAG WASHER this procedure are in the results section. MAGNESIUM STAT 05/10/2019 Leg cramps Results for 2:50 AM BAG W[facility]ER this procedure are in the results section. BASIC METABOLIC PANEL (NA, K, STAT 05/10/2019 Leg cramps Results for CL, CO2, GLUCOSE, BUN, 2:50 AM BAG WASHER this CREATININE, CA) procedure ar e in the results section. CBC WITH DIFFERENTIAL Routine 05/10/2019 Leg cramps Result s for 2:50 AM BAG WASHER this procedure are in the results section. EXTERNAL PROVIDER RECORDS Routine 05/10/2019 12:01 AM BAG WASHER EMERGENCY SERVICES AGREEMENTS Routine 05/10/2019 AND AUTHORIZATIONS 12:01 AM BAG WASHER from Last 3 Months Results EMERGENCY SERVICES AGREEMENTS AND AUTHORIZATIONS (07/25/2019 12:01 AM CDT)Only the most recent of8 resultswithin the time period is included. Specimen Performing Organization Address [facility] [place] Phone Number HIM FIBRINOGEN (07/19/2019 5:21 PM CDT)Only the most recent of5 resultswithin the time period is included. Pathologist Sig nature Fibrinogen 157 (L) 167 - 453 mg/dL [facility] Specimen Blood - ARM, RIGHT Performing Organization Address [facility] [place] Phone Number [facility] CLIA: [id number], [address] [place] [address] [address] [facility] Transfuse Cryoprecipitate (in units) (07/19/2019 1:28 PM CDT)Only the most recent of4 resultswithin the time period is included.Prepare Cryoprecipitate (in units): 1 Units~Indication: 2) 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 Unit Blood Type O Pos LAB ISBT Blood Type Code 5100 LAB Unit Number [id number] LAB Blood Expiration Date LAB & Time Status Information Issued LAB Product Identification Cryoprecipitate LAB Product Code [id number] LAB Comment: Performed at [facility] Laboratory Services - [facility] Blood Bank [address] [place] [address], [place] [address] Toll Free: [phone] CLIA No. [id number] Specimen Performing Organization Address [facility]/Zipcode Phone Number BLD LAB GALV ONLY - SYPHILIS IGG/IGM (07/19/2019 11:33 AM CDT)Only the most recent of2 resultswithin the time period is included. Pathologist Sig nature Syphilis IgG/IgM Non-reactive Non-reactive [facility] LABORATORY SERVICES Specimen Blood - ARM, RIGHT Narrative Performed At [facility] LABORATORY SERVICES Non-reactive - No serologic evidence of T. pallidum infection. Cannot exclude incubating or early syphilis . Submit a second specimen in 2-4 weeks if syphilis is clinically suspected. Equivocal - Further testing to follow. Reactive - Further testing to follow. Performing Organization Address [facility]/Zipcode Phone Number [facility] LABORATORY SERVICES CLIA: [id number], [address] [place], [place] [address] [facility] ETHYLENE GLYCOL (07/19/2019 11:33 AM CDT) Pathologist Sig [facility] ETHYLENE GLY <5 mg/dL [facility] Comment: THERAPEUTIC RANGE: Ethylene Glycol Therapeutic: No therapeutic range Assay detection limit 5 mg/dL. Potentially toxic: Greater than 20 mg/dL. Toxic concentrations may cause intoxication, APPLICATION ENGINEER depre ssion, metabolic acidosis, renal damage and hypocalcemia. Eth ylene glycol is extremely toxic. Ingestion can be fatal if patients do not receive immediate medical treatment. INTERPRETIVE INFORMATION: Ethylene Glycol Test developed and characteristics determined by [employer]. See Compliance Statement B: [employer]/ CS Performed by [employer], [address] [place] [address] [email or web address] Skyler Urbina MD, Lab. Director Specimen Blood - ARM, RIGHT Performing Organization Address [facility] Phone Number [facility] [address] [place] [address] SERUM DRUG (IMMUNOASSAY) - COMPREHENSIVE DRUG SCREEN (07/19/2019 11:33 AM CDT) Pathologist Sig nature KIANA S Negative Negative [facility] LABORATORY SERVICES BENZO S Negative Negative [facility] LABOR[facility]ORY SERVICES TRICYCLIC Negative Negative [facility]OR[facility]ORY SERVICES Specimen Blood - ARM, RIGHT Narrative Performed At Serum Drug Screen Cutoff Ranges [facility]ORY SERVICES Barbiturates - 3 mcg/mL Benzodiazepines - 50 ng/mL TCA - 300 ng/mL Test developed and characteristics determined by [facility] Laboratory Services. The results are to be used only for medical (i.e., treatment) purposes. Unconfirmed screening results mus t not be used for non-medical purposes (e.g., employment sarai ting, legal testing). Performing Organization Address City/[facility]/Zipcode Phone Number [facility]ORATORY SERVICES CLIA: [id number], [address] [place] [address] [address] [facility] THYROID STIMULATING HORMONE (07/19/2019 11:33 AM CDT)Only the most recent of2 resultswithin the time period is included. Pathologist Sig nature TSH 1.82 0.45 - 4.70 mIU/L [facility] LABORATORY SERVICE S Specimen Blood - ARM, RIGHT Performing Organization Address [facility] Phone Number [facility]ORY [facility] CLIA: [id number], [address] [place] [address] [address] [facility] PHOSPHORUS (07/19/2019 11:33 AM CDT) Pathologist Sig nature PHOSPHORUS 3.5 2.5 - 5.0 mg/dL [facility]ORY SERVICES Specimen Blood - ARM, RIGHT Performing Organization Address [facility] Phone Number [facility]ORY [facility] CLIA: [id number], [address] [place] [address] [address] [facility] EGD (ENDO) (07/19/2019 7:39 AM CDT) Specimen Performing Organization Address [facility] Phone Number ENDO US ABDOMEN LIMITED WITH DOPPLER (07/19/2019 6:50 AM CDT) Specimen Impressions Performed At PACS/VR/DOSE Cirrhotic liver morphology with a 3.1 cm circumscribed lesion within the right hepatic lobe that is better described on MRI abd omen dated 06/25/2019. Hydropic gallbladder with dilated common bile duct uilses suring up to 0.9 cm in diameter is redemonstrated, and is better evaluated on MRI abdomen dated 06/25/2019. Preliminary Report Dictated by Resident: Nestor Pedraza I, Jose Grimes MD., have reviewe d this study and agree with the above report. Narrative Performed At RIGHT [facility]PPER [facility]TRAS[facility] PACS/VR/DOSE HISTORY: cirrhosis TECHNIQUE: Transabdominal grayscale, col or Doppler, spectral Doppler ultrasound examination of the abdomen wi th emphasis on the liver, gallbladder, and spleen was performed. C ine clips were then generated. COMPARISON: MRI abdomen 06/25/2019. FINDINGS: LIVER: Normal in size (13.9 cm). Hepatic parenchyma demonstrates a coarsened echotexture. The hepatic contour is nodular. A 3.1 x 2.8 x 2.9 cm mildly hypoechoic lesion is noted within the right hepatic lobe, and is consistent with recent hepatic lesion de scribed on MRI abdomen dated 06/25/2019.. Normal hepatopetal flow w ithin the main portal vein. GALLBLADDER: No cholelithiasis no perich olecystic fluid. No sonographic Craft's sign although the patient was a dministered preprocedural analgesia. The gallbladder appears hydropic. The commo n bile duct measures 9 mm. PANCREAS: Incompletely visualized due to overlying bowel gas. RIGHT KIDNEY: The visualized portion of the right kidn ey is unremarkable. SPLEEN: The spleen is normal in size (12 .4 cm). Procedure Note [facility], Radiant Results Inft User - 2019 8:01 AM CDT RIGHT UPPER QUADRANT ULTRASOUND HISTORY: cirrhosis TECHNIQUE: Transabdominal grayscale, col or Doppler, spectral Doppler ultrasound examination of the abdomen wi th emphasis on the liver, gallbladder, and spleen was performed. C ine clips were then generated. COMPARISON: MRI abdomen 06/25/2019. FINDINGS: LIVER: Normal in size (13.9 cm). Hepatic parenchyma demonstrates a coarsened echotexture. The hepatic conto ur is nodular. A 3.1 x 2.8 x 2.9 cm mildly hypoechoic lesion is noted within the right hepatic lobe, and is consistent with recent hepatic lesion de scribed on MRI abdomen dated 06/25/2019.. Normal hepatopetal flow wit hin the main portal vein. GALLBLADDER: No cholelithiasis no perich olecystic fluid. No sonographic Craft's sign although the patient was a dministered preprocedural analgesia. The gallbladder appears hydro pic. The common bile duct measures 9 mm. PANCREAS: Incompletely visualized due to overlying bowel gas. RIGHT KIDNEY: The visualized portion of the right kidney is unremarkable. SPLEEN: The spleen is normal in size (12 .4 cm). IMPRESSION Cirrhotic liver morphology with a 3.1 cm circumscribed lesion within the right hepatic lobe that is better descri bed on MRI abdomen dated 06/25/2019. Hydropic gallbladder with dilated common bile duct measuring up to 0.9 cm in diameter is redemonstrated, and is be tter evaluated on MRI abdomen dated 06/25/2019. Preliminary Report Dictated by Resident: Nestor Pedraza I, Jose Grimes MD., have reviewed this study and agree with the above report. Performing Organization Address City/State/Zipcode Phone Number PACS/VR/DOSE CBC WITH DIFFERENTIAL (07/19/2019 5:22 AM CDT)Only the most recent of14 results within the time period is included. WBC 4.30 4.20 - 10.70 [facility] 10*3/L SERVICES RBC 2.54 (L) 4.26 - 5.52 [facility] 10*6/L SERVICES HGB 8.3 (L) 12.2 - 16.4 [facility] g/dL SERVICES HCT 25.4 (L) 38.4 - 49.3 % [facility] SERVICES MCV 100.0 (H) 81.7 - 95.6 [facility] fL SERVICES MCH 32.7 26.1 - 32.7 [facility] pg SERVICES MCHC 32.7 31.2 - 35.0 [facility] g/dL SERVICES RDW-SD 79.9 (H) 38.5 - 51.6 [facility] fL SERVICES RDW-CV 22.3 (H) 12.1 - 15.4 % [facility] SERVICES PLT 63 (L) 150 - 328 [facility] 10*3/L SERVICES MPV 9.5 (L) 9.8 - 13.0 fL [facility] SERVICES IPF % 3.0Comment: Platelet 1.2 - 10.7 % [facility] count measured by SERVICES fluorescence method. NRBC/100 WBC 0.5 0.0 - 10.0 [facility] /100 WBCs SERVICES NRBC x10^3 0.02 10*3/L [facility] SERVICES GRAN MAT (NEUT) % 52.1 % [facility] SERVICES IMM GRAN % 0.50 % [facility] SERVICES LYMPH % 26.5 % [facility] SERVICES MONO % 14.2 % [facility] SERVICES EOS % 6.0 % [facility] SERVICES BASO % 0.7 % [facility] SERVICES GRAN MAT 2.24 1.99 - 6.95 [facility] x10^3(ANC) 10*3/uL SERVICES IMM GRAN x10^3 <0.03 0.00 - 0.06 [facility] 10*3/uL SERVICES LYMPH x10^3 1.14 1.09 - 3.23 [facility] 10*3/uL SERVICES MONO x10^3 0.61 0.36 - 1.02 [facility] 10*3/uL SERVICES EOS x10^3 0.26 0.06 - 0.53 [facility] 10*3/uL SERVICES BASO x10^3 0.03 0.01 - 0.09 [facility] 10*3/uL SERVICES Specimen Blood - ARM, RIGHT Performing Organization Address City/[facility]/Zipcode Phone Number [facility] CLIA: [id number], [address] [place] [address] [address] [facility] aPTT (07/19/2019 5:22 AM CDT)Only the most recent of8 resultswithin the time period is included. Pathologist Sig nature APTT Patient 47 (H) 26 - 36 Seconds [facility] SERVICES Specimen Blood - ARM, RIGHT Performing Organization Address City/[facility] Phone Number [facility] CLIA: [id number], [address] [place] [address] [address] [facility] Prothrombin Time / INR (07/19/2019 5:22 AM CDT)Only the most recent of9 results within the time period is included. PROTIME PATIENT 22.9 (H) 10.1 - 12.6 [facility] Seconds SERVICES INR 2.0Comment: Normal [facility] INR <1.1; Warfarin SERVICES Therapeutic range 2.0 to 3.0 or 2.5 to 3.5, depending upon the indications. Specimen Blood - ARM, RIGHT Performing Organization Address City/[facility]/Zipcode Phone Number [facility] CLIA: [id number], [address] [place] [address] [address] [facility] ETHANOL (07/19/2019 5:22 AM CDT)Only the most recent of2 resultswithin the time period is included. Pathologist Sig nature ALCOHOL <10 mg/dL [facility] SERVICES Specimen Blood - ARM, RIGHT Narrative Performed At Toxic Greater than or equal to 80 mg/dL. [facility] NOTE: Whole blood values are approximately 10% to 15% lower than serum and plasma. Performing Organization Address City/State/Zipcode Phone Number [facility] CLIA: [id number], [address] [place] [address] [facility] Basic Metabolic Panel (NA, K, CL, CO2, GLUCOSE, BUN, CREATININE, CA) (07/19/2019 5:22 AM CDT)Only the most recent of9 resultswithin the time period is included. Pathologist Sig nature NA 137 135 - 145 [facility] mmol/L SERVICES K 3.6 3.5 - 5.0 [facility] mmol/L SERVICES CL 107 98 - 108 mmol/L [facility] SERVICES CO2 TOTAL 23 23 - 31 mmol/L [facility] SERVICES AGAP 7 2 - 16 [facility] SERVICES BUN 11 7 - 23 mg/dL [facility] SERVICES GLUCOSE 223 (H) 70 - 110 mg/dL [facility] SERVICES CREATININE 0.73 0.60 - 1.25 [facility] mg/dL SERVICES CALCIUM 8.3 (L) 8.6 - 10.6 [facility] mg/dL SERVICES eGFR Calculation 116.7 mL/min/1.73m2 [facility] (Non- SERVICES Ivorian) eGFR Calculation 141.5 mL/min/1.73m2 [facility] () SERVICES Specimen Blood - ARM, RIGHT Narrative Performed At Association of Glomerular Filtration Rate (GFR) and St aging [facility] LAB[facility] SERVICES of Kidney Disease* + + +------- ------ + | GFR (mL/min/1.73 m2) | With Kidney Damage | Wi thout Kidney Damage + + +------- ------ + | >90 | Stage one | Normal + + +------- ------ + | 60-89 | Stage two | Decreased GFR + + +------- ------ + | 30-59 | Stage three | Stage three + + +------- ------ + | 15-29 | Stage four | Stage four + + +------- ------ + | <15 (or dialysis) | Stage five | Stage five + + +------- ------ + *Each stage assumes the associated GFR level has been in effect for at least three months. Stages 1 to 5, wit h or without kidney disease, indicate chronic kidney disease. Notes: Determination of stages one and two (with eGFR >59mL/min/1.73 m2) requires estimation of kidney damag e for at least three months as defined by structural or func tional abnormalities of the kidney, manifested by either: Pathological abnormalities or Markers of kidney damage (including abnormalities in the composition of the blo od or urine or abnormalities in imaging tests) . Performing Organization Address City/[facility] Phone Number [facility] CLIA: [id number], [address] [place] [address] [address] [facility] HEPATIC FUNCTION PANEL ([id number]) (ALB,T.PRO,BILI T,BU/BC,ALT,AST,ALK PHOS) (07/19/2019 5:22 AM CDT)Only the most recent of5 resultswithin the time period is included. Pathologist Sig nature TOTAL BILI 3.4 (H) 0.1 - 1.1 mg/dL [facility] SERVICES BILI UNCON 2.1 (H) 0.1 - 1.1 mg/dL [facility] SERVICES BILI CONJ 0.0 0.0 - 0.3 mg/dL [facility] SERVICES T PROTEIN 7.4 6.3 - 8.2 g/dL [facility] SERVICES ALBUMIN 2.5 (L) 3.5 - 5.0 g/dL [facility] SERVICES ALK PHOS 253 (H) 34 - 122 U/L [facility] SERVICES ALTv 46 5 - 50 U/L [facility] SERVICES AST(SGOT) 71 (H) 13 - 40 U/L [facility] SERVICES Specimen Blood - ARM, RIGHT Performing Organization Address [facility] Phone Number [facility] CLIA: [id number], [address] [place] [address] [address] [facility] Magnesium Serum (07/19/2019 5:22 AM CDT)Only the most recent of7 resultswithin the time period is included. Pathologist Sig nature MAGNESIUM 1.6 (L) 1.7 - 2.4 mg/dL [facility] SERVICES Specimen Blood - ARM, RIGHT Performing Organization Address [facility] Phone Number [facility] CLIA: [id number], [address] [place] [address] [address] [facility] URINALYSIS (07/18/2019 11:20 PM CDT)Only the most recent of9 resultswithin the time period is included. Pathologist Sig nature APPEARANCE Clear Clear [facility] COLOR Yellow Yellow [facility] PH 7.0 4.8 - 8.0 [facility] SP GRAVITY 1.012 1.003 - 1.030 [facility] SERVICES GLU U QUAL Normal Normal [facility] BLOOD Negative Negative [facility] KETONES Negative Negative [facility] PROTEIN Negative Negative [facility] UROBILIN Normal Normal [facility]AT[facility] SERVICES BILIRUBIN Negative Negative [facility] NITRITE Negative Negative [facility] [place] Negative Negative [facility] SERVICES RBC/HPF <1 0 - 3 HPF [facility] SERVICES WBC/HPF 1 0 - 5 HPF [facility] SERVICES BACTERIA Negative Negative [facility] SERVICES HYAL CAST 1 <=2 LPF [facility] SERVICES ASCORBIC ACID Negative [facility] SERVICES Specimen Urine - URINE, CLEAN CATCH Performing Organization Address City/State/Zipcode Phone Number [facility] CLIA: [id number], [address] [place] [address] [address] [facility] URINE DRUG (LCMSMS) - SYNTHETIC OPIATES PANEL (07/18/2019 11:18 PM CDT)Only the most recent of2 resultswithin the time period is included. Pathologist Sig nature Tramadol-LCMS 376 (H) <50 ng/mL [facility] Tramadol-Creatinine 726 ng/mg [facility] Normalized SERVICES Tramadol-Interpretati Positive (A) Negative [facility] on SERVICES Propoxyph-Interpretat Negative Negative [facility] ion SERVICES Normeperid-Interpreta Negative Negative [facility] tion SERVICES Meperidine-Interpreta Negative Negative [facility] tion SERVICES Methadone-Interpretat Negative Negative [facility] ion SERVICES EDDP-Interpretation Negative Negative [facility] SERVICES CREAT U 51.8 mg/dL [facility] SERVICES Norfentan-Interpretat Negative Negative [facility] ion SERVICES Fentanyl-Interpretati Negative Negative [facility] on SERVICES Buprenorph-Interpreta Negative Negative [facility] tion SERVICES Norbupren-Interpretat Negative Negative [facility] ion SERVICES Carisopro-LCMS 1,869 (H) <50 ng/mL [facility] SERVICES Carisopro-Creatinine 3,608 ng/mg [facility] Normalized SERVICES Carisopro-Interpretat Positive (A) Negative [facility] ion SERVICES Meprobamat-LCMS >30687 (H) <50 ng/mL [facility] SERVICES Meprobamat-Normalized Comment: N/A [facility] Creatinine SERVICES Meprobamat-Interpreta Positive (A) Negative [facility] tion SERVICES Specimen Urine - URINE, CLEAN CATCH Narrative Performed At Test developed and characteristics determined by [facility] Laboratory Services. Performing Organization Address City/State/Zipcode Phone Number [facility] CLIA: [id number], [address] [place], [place] [address] [address] [facility] URINE DRUG (LCMSMS) - OPIATES PANEL (07/18/2019 11:18 PM CDT)Only the most recent of2 resultswithin the time period is included. Pathologist Sig nature Morphine-LCMS 50 (H) <50 ng/mL [facility] Morphine-Creatinine 97 ng/mg [facility] Normalized SERVICES Morphine-Interpretati Positive (A) Negative [facility] on SERVICES Codeine-LCMS 406 (H) <50 ng/mL [facility] SERVICES Codeine-Creatinine 784 ng/mg [facility] Normalized SERVICES Codeine-Interpretatio Positive (A) Negative [facility] n SERVICES Hydrocodon-LCMS 636 (H) <50 ng/mL [facility] SERVICES Hydrocodon-Creatinine 1,228 ng/mg [facility] Normalized SERVICES Hydrocodon-Interpreta Positive (A) Negative [facility] tion SERVICES Hydromorph-LCMS 93 (H) <50 ng/mL [facility] SERVICES Hydromorp-Creatinine 180 ng/mg [facility] Normalized SERVICES Hydromorph-Interpreta Positive (A) Negative [facility] tion SERVICES Norhydrocod-LCMS 1,282 (H) <50 ng/mL [facility] SERVICES Norhydrocod-Creatinin 2,475 ng/mg [facility] e Normalized SERVICES Norhydrocod-Interpret Positive (A) Negative [facility] ation SERVICES Oxycodone-Interpretat Negative Negative [facility] ion SERVICES Oxymorph-Interpretati Negative Negative [facility] on SERVICES Noroxycod-Interpretat Negative Negative [facility] ion SERVICES 6-ETSRADA(Heroin)-Interpr Negative Negative [facility] etation SERVICES CREAT U 51.8 mg/dL [facility] SERVICES Specimen Urine - URINE, CLEAN CATCH Narrative Performed At Test developed and characteristics determined by [facility] Laboratory Services. Performing Organization Address City/State/Zipcode Phone Number [facility] CLIA: [id number], [address] [place] [address] [address] [facility] URINE CULTURE (07/18/2019 11:18 PM CDT)Only the most recent of4 resultswithin the time period is included. Pathologist Sig nature URINE CULTURE No aerobic growth [facility] (< 1000 CFU/mL) SERVICES Specimen Urine - URINE, CLEAN CATCH Performing Organization Address [facility] Phone Number [facility] CLIA: [id number], [address] [place] [address] [address] [facility] GALV/CLC ONLY - URINE DRUG (IMMUNOASSAY) - COMPREHENSIVE DRUG SCREEN (07/18/2019 11:18 PM CDT)Only the most recent of2 resultswithin the time period is included. AMPHET Negative Negative [facility] SERVICES KIANA U Negative Negative [facility] SERVICES BENZO U Negative Negative [facility] SERVICES Cocaine Metabolite Negative Negative [facility] SERVICES METHADONE Negative Negative [facility] SERVICES OPIATES Presumptive Negative [facility] Positive (A) SERVICES PCP Negative Negative [facility] SERVICES THC Negative Negative [facility] SERVICES Specimen Urine - URINE, CLEAN CATCH Narrative Performed At Urine Drug Cutoff Ranges [facility] Cocaine: 150 ng/mL Benzodiazepines: 200 ng/mL Methadone: 300 ng/mL Amphetamine: 1,000 ng/mL Opiates: 300 ng/mL Cannabinoids: 50 ng/mL Phencyclidine: 25 ng/mL Barbiturates: 200 ng/mL The results are to be used only for medical (i.e., treatment) purposes. Unconfirmed screening results mus t not be used for non-medical purposes (e.g., employment sarai ting, legal testing). Performing Organization Address City/[facility]/Zipcode Phone Number [facility] CLIA: [id number], [address] [place] [address] 77 555 [facility] Blood Culture - Peripheral Vein (07/18/2019 10:41 PM CDT)Only the most recent of 8 resultswithin the time period is included. Blood No organisms isolated No growth [facility] Culture-Aerobic Comment: SERVICES Previous preliminary verifie d result was Culture In Progress on 07/19/2019 at 0301 CDT Previous preliminary verifie d result was No growth at 24 hours on 07/20/2019 at 0001 CDT Previous preliminary verifie d result was No growth at 48 hours on 07/21/2019 at 0001 CDT Previous preliminary verifie d result was No growth at 72 hours on 07/22/2019 at 0001 CDT Blood No organisms isolated No growth [facility] Culture-Anaerobic Comment: SERVICES Previous preliminary verifie d result was Culture In Progress on 07/19/2019 at 0301 CDT Previous preliminary verifie d result was No growth at 24 hours on 07/20/2019 at 0001 CDT Previous preliminary verifie d result was No growth at 48 hours on 07/21/2019 at 0001 CDT Previous preliminary verifie d result was No growth at 72 hours on 07/22/2019 at 0001 CDT Specimen Blood - ARM, RIGHT Performing Organization Address City/[facility]/Zipcode Phone Number [facility] CLIA: [id number], [address] [place] [address] [facility] Type and Screen - ONCE Routine (07/18/2019 10:35 PM CDT)Only the most recent of3 resultswithin the time period is included. [facility] Sig nature ABO & RH O POSITIVE LAB Comment: Performed at [facility] Laboratory [facility] - [facility] Blood [address] [address] Toll Free: [phone] CLIA No. [id number] IAT Negative LAB Comment: Performed at [facility] Laboratory Services - [facility] Blood [place] [address] Toll Free: [phone] CLIA No. [id number] Specimen Blood - VENOUS Performing Organization Address City/State/Zipcode Phone Number BLD LAB XR CHEST 1 VW (07/18/2019 10:20 PM CDT)Only the most recent of2 resultswithin the time period is included. Specimen Impressions Performed At PACS/VR/DOSE Patchy left basilar and perihilar opacities and small left pleural effusion is suggestive of infection in the proper clinical setting. Recommend follow-up radiograph to ensure resolution after treatment. Preliminary Report Dictated by Resident: Mirella Wyman MD., have reviewed this study and agree with the above report. Narrative Performed At XR CHEST 1 VW PACS/VR/DOSE HISTORY: AMS - assess for pNA COMPARISON: X-ray dated 06/12/2019 FINDINGS: The lungs are underexpanded resulting in pulmonary vascular crowding. Patchy opacities are present in the left lung base and left midlung, associated with small left pleural effusion, concernin g for infection. The heart is normal in size. No pneumothorax is found. Procedure Note [facility], Radiant Results Inft User - 2019 10:17 AM CDT XR CHEST 1 VW HISTORY: AMS - assess for pNA COMPARISON: X-ray dated 06/12/2019 FINDINGS: The lungs are underexpanded resulting in pulmonary vascular crowding. Patchy opacities are present in the left lung base and left midlung, associated with small left pleural effus ion, concerning for infection. The heart is normal in size. No pneumothorax is found. IMPRESSION Patchy left basilar and perihilar opacit ies and small left pleural effusion is suggestive of infection in the proper clinical setting. Recommend follow-up radiograph to ensure resolution after treatment. Preliminary Report Dictated by Resident: Jonathan Duffy I, Mirella Rosenberg MD., have reviewed this study and agree with the above report. Performing Organization Address City/State/Zipcode Phone Number PACS/VR/DOSE CT HEAD WO CONTRAST (07/18/2019 7:31 PM CDT) Specimen Impressions Performed At PACS/VR/DOSE Within confines of motion degradation, no acute intrac ranial hemorrhage or mass effect. Narrative Performed At CT HEAD WO CONTRAST PACS/VR/DOSE HISTORY: Altered mental status (AMS), un clear cause , lethargic, ammonia high. hx liver cancer and cirrhosis. COMPARISON: None available. TECHNIQUE: Routine unenhanced brain CT. FINDINGS: Images degraded by motion artifacts. No acute intracranial hemorrhage, extracerebral fluid collection, midline shift or mass effect. No acute transcortical infarction. Ventricles are normal. Mild cerebral vol ume loss. No depressed calvarial fracture. Mild disconjugate gaze. Visualized paranasal sinuses are essenti ally clear. Procedure Note [facility], Radiant Results Inft User - 2019 7:[address] HEAD WO CONTRAST HISTORY: Altered mental status (AMS), un clear cause , lethargic, ammonia high. hx liver cancer and cirrhosis. COMPARISON: None available. TECHNIQUE: Routine unenhanced brain CT. FINDINGS: Images degraded by motion artifacts. No acute intracranial hemorrhage, extrac erebral fluid collection, midline shift or mass effect. No acute transcortical infarction. Ventricles are normal. Mild cerebral vol ume loss. No depressed calvarial fracture. Mild disconjugate gaze. Visualized paranasal sinuses are essenti ally clear. IMPRESSION Within confines of motion degradation, n o acute intracranial hemorrhage or mass effect. Performing Organization Address [facility] Phone Number PACS/VR/DOSE EKG-12 LEAD (07/18/2019 6:50 PM CDT) Specimen Performing Organization Address [facility] Phone Number HST EXTRA TUBE LAV (07/18/2019 6:49 PM CDT) Specimen Blood Performing Organization Address [facility] Phone Number [facility] CLIA: [id number], [address] [place] [address] 77 555 [facility] GLYCOSYLATED HEMOGLOBIN (A1C) (07/18/2019 6:49 PM CDT)Only the most recent of2 resultswithin the time period is included. Pathologist Sig nature HGB A1C 5.2 4.0 - 6.0 % [facility] Specimen Blood - VENOUS Performing Organization Address [facility] Phone Number [facility] CLIA: [id number], [address] [place] [address] 77 555 [facility] COMP. METABOLIC PANEL ([id number]) (07/18/2019 6:49 PM CDT)Only the most recent of8 resultswithin the time period is included. NA 137 135 - 145 [facility] mmol/L SERVICES K 4.7Comment: 3.5 - 5.0 [facility] Slight hemolysis mmol/L SERVICES CL 109 (H) 98 - 108 [facility] mmol/L SERVICES CO2 TOTAL 19 (L) 23 - 31 [facility] mmol/L SERVICES AGAP 9 2 - 16 [facility] BUN 14Comment: Slight 7 - 23 mg/dL [facility] hemolysis SERVICES GLUCOSE 239 (H) 70 - 110 [facility] mg/dL SERVICES CREATININE 0.84 0.60 - 1.25 [facility] mg/dL SERVICES TOTAL BILI 3.9 (H) 0.1 - 1.1 [facility] mg/dL SERVICES CALCIUM 8.2 (L) 8.6 - 10.6 [facility] mg/dL SERVICES T PROTEIN 7.6 6.3 - 8.2 [facility] g/dL SERVICES ALBUMIN 2.7 (L) 3.5 - 5.0 [facility] g/dL SERVICES ALK PHOS 261 (H)Comment: 34 - 122 U/L [facility] Slight hemolysis SERVICES ALTv 45 5 - 50 U/L [facility] SERVICES AST(SGOT) 83 (H)Comment: 13 - 40 U/L [facility] Slight hemolysis SERVICES eGFR Calculation 99.3 mL/min/1.73m2 [facility] (Non- SERVICES Ivorian) eGFR Calculation 120.3 mL/min/1.73m2 [facility] () SERVICES Specimen Blood - VENOUS Narrative Performed At Association of Glomerular Filtration Rate (GFR) and St aging [facility] of Kidney Disease* + + +------- ------ + | GFR (mL/min/1.73 m2) | With Kidney Damage | Wi thout Kidney Damage + + +------- ------ + | >90 | Stage one | Normal + + +------- ------ + | 60-89 | Stage two | Decreased GFR + + +------- ------ + | 30-59 | Stage three | Stage three + + +------- ------ + | 15-29 | Stage four | Stage four + + +------- ------ + | <15 (or dialysis) | Stage five | Stage five + + +------- ------ + *Each stage assumes the associated GFR level has been in effect for at least three months. Stages 1 to 5, wit h or without kidney disease, indicate chronic kidney disease. Notes: Determination of stages one and two (with eGFR >59mL/min/1.73 m2) requires estimation of kidney damag e for at least three months as defined by structural or func tional abnormalities of the kidney, manifested by either: Pathological abnormalities or Markers of kidney damage (including abnormalities in the composition of the blo od or urine or abnormalities in imaging tests) . Performing Organization Address City/State/Zipcode Phone Number [facility] CLIA: [id number], [address] [place], [place] [address] [facility] TROPONIN I (07/18/2019 6:49 PM CDT) [facility] TROPONIN I <0.012 <=0.034 ng/mL [facility] Specimen Blood - VENOUS Narrative Performed At Equal or Less than 0.034 ng/ml---Normal [facility] Note: Cardiac troponin begins to rise 3-4 hours after the onset of ischemia. Repeat in 4-6 hours if the sample w as drawn within 3-4 hours of the onset of the symptom and found normal. Between 0.035 and 0.120 ng/mL--- Borderline. Questiona ble myocardial injury or necrosis Note: Serial measurement may be necessary to confirm o r exclude the diagnosis of myocardial injury or necrosis ; Clinical correlation (symptoms, EKGs, imaging studies, and others) required; Repeat in 4-6 hours if clinically indicated. Equal or Higher than 0.121 ng/mL---Abnormal. Myocardia l Injury or Necrosis Likely Biotin has been reported to cause a negative bias, int erpret results relative to patient's use of biotin. Performing Organization Address City/[facility] Phone Number [facility] CLIA: [id number], [address] [place] [address] 555 [facility] FOLATE (07/18/2019 6:49 PM CDT) FOLATE SER >20.0 (H)Comment: 3.0 - 20.0 [facility] Biotin has been ng/mL SERVICES reported to cause a positive bias, interpret results relative to patient's use of biotin. Specimen Blood - VENOUS Performing Organization Address [facility] Phone Number [facility] CLIA: [id number], [address] [place] [address] 555 [facility] VITAMIN B12, LEVEL (07/18/2019 6:49 PM CDT) Pathologist Sig nature VIT B12 687 240 - 930 pg/mL [facility] Specimen Blood - VENOUS Narrative Performed At Biotin has been reported to cause a positive bias, int erpret [facility] results relative to patient's use of biotin. Performing Organization Address [facility] Phone Number [facility] CLIA: [id number], [address] [place] [address] 555 [facility] AMMONIA, PLASMA (07/18/2019 6:49 PM CDT)Only the most recent of9 resultswithin the time period is included. Pathologist Sig nature AMMONIA 63 (H)Comment: 9 - 33 umol/L [facility] Slight hemolysis SERVICES Specimen Blood - VENOUS Performing Organization Address City/State/Zipcode Phone Number [facility] CLIA: [id number], [address] [place] [address] 555 [facility] CK (CREATINE KINASE) + MB (07/18/2019 6:49 PM CDT) Pathologist Sig nature CK 74 33 - 194 U/L [facility] CK-MB 2.87 <=3.50 ng/mL [facility] CKMB INDEX 3.9 (H)Comment: 0.0 - 2.5 % [facility] Slight hemolysis SERVICES Specimen Blood - VENOUS Narrative Performed At Biotin has been reported to cause a negative bias, int erpret [facility] results relative to patient's use of biotin. Performing Organization Address City/[facility] Phone Number [facility] CLIA: [id number], [address] [place] [address] 555 [facility] HOSPITAL ADMISSION (07/18/2019 12:01 AM CDT)Only the most recent of4 results within the time period is included. Specimen Performing Organization Address City/[facility]/Zipcode Phone Number HIM Lipase Serum (07/16/2019 6:44 PM CDT)Only the most recent of6 resultswithin the time period is included. Pathologist Sig [facility] LIPASE 171 0 - 220 U/L [facility] Specimen Blood - ARM, RIGHT Performing Organization Address City/[facility] Phone Number [facility] CLIA: [id number], [address] [place] [address] 555 [facility] CONSENT/REFUSAL FOR DIAGNOSIS AND TREATMENT (07/16/2019 2:20 AM CDT)Only the most recent of7 resultswithin the time period is included. Specimen Performing Organization Address City/State/Zipcode Phone Number HIM Transfuse Packed RBC (in units) (07/15/2019 3:26 PM CDT)IR PARACENTESIS/PERITONECENTESIS WITH IMAGING (07/15/2019 1:55 PM CDT)Only the most recent of2 resultswithin the time period is included. Specimen Impressions Performed At Successful ultrasound-guided diagnostic paracentesis. Fluid PACS/VR/DOSE samples were sent to the lab for analysi s. Preliminary Report Dictated by Resident: Hemal William As the attending radiologist, I, Dr. Juan R morse, was present in the room during the entire procedure. I, Juan R Dale MD., have reviewed this st udy and agree with the above report. Narrative Performed At EXAMINATION: IMAGE GUIDED PARACENTESIS. PACS/VR/DOSE HISTORY/INDICATION: Evaluate for SBP. COMPARISON: CT abdomen and pelvis with a nd without contrast dated 06/21/2019. SEDATION: The patient did not require conscious sedati on for the procedure. 1% subcutaneous lidocaine used. TECHNIQUE: The risks, benefits and alternatives were d iscussed and informed consent was obtained. Prior to beginning the procedure , Sisters Protocol was performed to confirm the identity and the planned procedure. Maximum sterile barriers including cap, mask, hand hygiene, st erile gloves, sterile gown, large sterile drape and cutaneous antisepsis were used. The patient's abdomen was examined with ultrasound and a suitable pocket of ascitic fluid in the right upper quadran t was identified. The skin overlying this area was anesthetized wit h 1 percent lidocaine. Using real-time ultrasound guidance, a 21-gaug e needle was advanced into the ascitic fluid. The needle was attached t o extension tubing and 150 cc of serous yellow fluid was aspirated including samples se nt for laboratory and culture analysis. A microwire was advanc ed into the fluid pocket and the needle was removed. A micro-sheath was a dvanced over the wire. At the conclusion of the procedure, the needle/sheath were removed and a sterile dressing applied to the site. The patient tole rated the procedure well without immediate complications. COMPLICATIONS: None immediate. ESTIMATED BLOOD LOSS: Minimal. CONDITION: Stable. DISCHARGED TO: Recovery and then returne d to inpatient unit. FINDINGS: Ultrasound demonstrated a trac e amount of ascitic fluid. Procedure Note [facility], Radiant Results Inft User - 2019 5:30 PM CDT EXAMINATION: IMAGE GUIDED PARACENTESIS. HISTORY/INDICATION: Evaluate for SBP. COMPARISON: CT abdomen and pelvis with a nd without contrast dated 06/21/2019. SEDATION: The patient did not require co nscious sedation for the procedure. 1% subcutaneous lidocaine used. TECHNIQUE: The risks, benefits and alter natives were discussed and informed consent was obtained. Prior to beginning the procedure, Sisters Protocol was performed to confirm the identity an d the planned procedure. Maximum sterile barriers including cap, mask, cason nd hygiene, sterile gloves, sterile gown, large sterile drape and cutaneous antisepsis were used. The patient's abdomen was examined with ultrasound and a suitable pocket of ascitic fluid in the right upper quadran t was identified. The skin overlying this area was anesthetized wit h 1 percent lidocaine. Using real-time ultrasound guidance, a 21-gaug e needle was advanced into the ascitic fluid. The needle was attached t o extension tubing and 150 cc of serous yellow fluid was aspirated includ ing samples sent for laboratory and culture analysis. A microwire was advanc ed into the fluid pocket and the needle was removed. A micro-sheath was a dvanced over the wire. At the conclusion of the procedure, the needle/sheath were removed and a sterile dressing applied to the site. Th e patient tolerated the procedure well without immediate complications. COMPLICATIONS: None immediate. ESTIMATED BLOOD LOSS: Minimal. CONDITION: Stable. DISCHARGED TO: Recovery and then returne d to inpatient unit. FINDINGS: Ultrasound demonstrated a trac e amount of ascitic fluid. IMPRESSION Successful ultrasound-guided diagnostic paracentesis. Fluid samples were sent to the lab for analysi s. Preliminary Report Dictated by Resident: Hemal William As the attending radiologist, I, Dr. Britney Dale, was present in the room during the entire procedure. IJuan R MD., have rev iewed this study and agree with the above report. Performing Organization Address City/State/Zipcode Phone Number PACS/VR/DOSE Cyto Abdominal Fluid (07/15/2019 1:48 PM CDT) Case Report Non-Gynecologic Cytology Case: [id number] [facility] Authorizing Provider: Kulwant Colbert i, MD Collected: 07/15/2019 1348 SERVICES Ordering Location: [facility] Intensive Care Received: 07/15/2019 1445 Unit (TUAN 8B) Pathologist: Liza Soler MD Specimen: ASCITES Final Diagnosis [facility] Lindy Sharp ABDOMEN; PARACENTESIS FLUID: SERVICES signed by Ryder, - INFLAMMATION, PREDOMINANTLY LYMPHOHISTIOCYTIC Liza Cobos MD on - NEGATIVE FOR MALIGNANT CELLS (SEE COMMENT) 07/19/2019 at 9:29 AM I have personally reviewed a ll specimens/slides and agree with all statements made by residents, fellows or pathologist assistants whose name(s) may appear on this report. Final Diagnosis Cytospins and cell block rae w lymphohistiocytic inflammation and reactive mesothelial cells in a background of red blood cells. [facility] Comment SERVICES Immunostains performed on the cell block (block A2) amber michaud the following: - Calretinin: Positive in mesothelial cells - BerEP4: Negative - TTF-1: Negative All controls show appropriate reactivity. This morphology and immunost ain profile is consistent with a reactive effusion. Clinical Clinical Hx: [facility] Information Decompensated cirrhotic SERVICES p/w melena, has h/o SBP Gross Description A1. ABDOMEN; PARACENTESIS FLUID [facility]ATORY Received fresh is 110 cc's of light sandeep fluid SERVICES Prepared 3 slides (1 Papanic olaou cytospin, 1 Romanowsky cytospin and 1 Thinprep preparation) A2. ABDOMEN; PARACENTESIS FLUID; CELL BLOCK Residual fluid sediment plac ed in formalin on 07/17/2019 0806 hours, embedded in Histogel , and submitted for cell block Prepared 5 slides (2 H&E and 3 immunostain(s) (TTF-1, calretinin, BerEp4)) Total = 8 slides Embedded Images [facility] SERVICES Specimen ASCITES Performing Organization Address City/State/Zipcode Phone Number [facility] CLIA: [id number], [address] [place] [address] 555 [facility] LDH TOTAL BODY FLUID (07/15/2019 1:47 PM CDT) LDH BF 151 U/L [facility] SERVICES UNSPUN BODY FLUID Yellow [facility] COLOR SERVICES UNSPUN BODY FLUID Clear [facility] CLARITY SERVICES SPUN BODY FLUID Yellow [facility] COLOR SERVICES SPUN BODY FLUID Clear [facility] CLARITY SERVICES Sediment The sediment [facility] volume is <0.1 SERVICES mLs of the total fluid volume of 6mL and its color is red. Specimen Fluid - ASCITES Narrative Performed At Test developed and characteristics determined by [facility] Laboratory Services. Performing Organization Address City/State/Zipcode Phone Number [facility] CLIA: [id number], [address] [place] [address] 555 [facility] Total Protein Body Fluid (07/15/2019 1:47 PM CDT) T.PROT BF 1,113.0 mg/dL [facility] SERVICES UNSPUN BODY FLUID Yellow [facility] COLOR SERVICES UNSPUN BODY FLUID Clear [facility] CLARITY SERVICES SPUN BODY FLUID Yellow [facility] COLOR SERVICES SPUN BODY FLUID Clear [facility] CLARITY SERVICES Sediment The sediment [facility] volume is <0.1 SERVICES mLs of the total fluid volume of 6mL and its color is red. Specimen Fluid - ASCITES Narrative Performed At Test developed and characteristics determined by [facility] Laboratory Services. Performing Organization Address City/State/Zipcode Phone Number [facility] CLIA: [id number], [address] [place] [address] 555 [facility] Albumin Body Fluid (07/15/2019 1:47 PM CDT) Pathologist Sig nature ALBUMIN BF 296.0 mg/dL [facility] SERVICES Specimen Fluid - ASCITES Narrative Performed At Result interpreted relative to the serum concentration . [facility] Performing Organization Address City/State/Zipcode Phone Number [facility] CLIA: [id number], [address] [place] [address] 555 [facility] Glucose Body Fluid (07/15/2019 1:47 PM CDT) GLUCOSE BF 104 mg/dL [facility] UNSPUN BODY FLUID Yellow [facility] COLOR SERVICES UNSPUN BODY FLUID Clear [facility] CLARITY SERVICES SPUN BODY FLUID Yellow [facility] COLOR SERVICES SPUN BODY FLUID Clear [facility] CLARITY SERVICES Sediment The sediment [facility] volume is <0.1 SERVICES mLs of the total fluid volume of 6mL and its color is red. Specimen Fluid - ASCITES Narrative Performed At Test developed and characteristics determined by [facility] Laboratory Services. Performing Organization Address City/State/Zipcode Phone Number [facility] CLIA: [id number], [address] [place] [address] 555 [facility] Amylase Body Fluid (07/15/2019 1:47 PM CDT) AMYLASE BF <30 U/L [facility] UNSPUN BODY FLUID Yellow [facility] COLOR SERVICES UNSPUN BODY FLUID Clear [facility] CLARITY SERVICES SPUN BODY FLUID Yellow [facility] COLOR SERVICES SPUN BODY FLUID Clear [facility] CLARITY SERVICES Sediment The sediment [facility] volume is <0.1 SERVICES mLs of the total fluid volume of 6mL and its color is red. Specimen Fluid - ASCITES Narrative Performed At Test developed and characteristics determined by [facility] Laboratory Services. Performing Organization Address City/State/Zipcode Phone Number [facility] CLIA: [id number], [address] [place] [address] [address] [facility] Lipase Body Fluid (07/15/2019 1:47 PM CDT) LIPASE BF <10 U/L [facility] UNSPUN BODY FLUID Yellow [facility] COLOR SERVICES UNSPUN BODY FLUID Clear [facility] CLARITY SERVICES SPUN BODY FLUID Yellow [facility] COLOR SERVICES SPUN BODY FLUID Clear [facility] CLARITY SERVICES Sediment The sediment [facility] volume is <0.1 SERVICES mLs of the total fluid volume of 6mL and its color is red. Specimen Fluid - ASCITES Narrative Performed At Test developed and characteristics determined by [facility] Laboratory Services. Performing Organization Address [facility] [place] Phone Number [facility] CLIA: [id number], [address] [place] [address] [address] [facility] BODY FLUID DIRECT COUNT (07/15/2019 1:46 PM CDT)Only the most recent of2 resultswithin the time period is included. Pathologist Sig nature BF COLOR Light Yellow [facility] BF WBC Count 79 /L [facility] BF RBC Count <3000 /L [facility] Specimen Fluid - ASCITES Narrative Performed At The reference range and other method performance [facility] specifications have not been established for this body fluid. The test results must be integrated into the clinical context for interpretation. Performing Organization Address City/State/Zipcode Phone Number [facility] CLIA: [id number], [address] [place] [address] [address] [facility] BODY FLUID MANUAL DIFF (07/15/2019 1:46 PM CDT)Only the most recent of2 results within the time period is included. Pathologist Sig nature BF SEGS 1 % [facility] BF LYMPHS 28 % [facility] MACROPHAGE 71 % [facility] #CELS CNTD 100 [facility] Specimen Fluid - ASCITES Performing Organization Address City/[facility]/Zipcode Phone Number [facility] CLIA: [id number], [address] [place] [address] [address] [facility] Body Fluid Culture (07/15/2019 1:46 PM CDT)Only the most recent of2 results within the time period is included. Pathologist [facility] BODY FLUID CULT No organisms isolated [facility] Gram stain No Organisms seen [facility] Gram stain Few Polymorphonuclear [facility] leukocytes SERVICES Specimen Fluid - ASCITES Performing Organization Address City/[facility] [place] Phone Number [facility] CLIA: [id number], [address] [place] [address] [address] [facility] Prepare Packed RBC (in units), 1 Units (07/15/2019 10:17 AM CDT) [facility] Cross Match Result Compatible LAB ISBT Blood Type Code 5100 LAB Unit Blood Type O Pos LAB Unit Number [id number] LAB Blood Expiration Date & [id number] LAB Time Status Information Issued LAB Product Identification Red Blood Cells LAB Product Code [id number] LAB Comment: Performed at [facility] Laboratory Services - [facility] Blood Bank [address] [place] [address] Toll Free: [phone] CLIA No. [id number] Specimen Performing Organization Address City/[facility] [place] Phone Number [facility] LAB Lactic Acid Whole Blood (07/15/2019 9:06 AM CDT)Only the most recent of6 resultswithin the time period is included. Pathologist [facility] nature LACTIC ACID 1.47 0.50 - 2.20 mmol/L [facility] SERVIC ES Specimen Blood - VENOUS Performing Organization Address City/[facility]/Zipcode Phone Number [facility] CLIA: [id number], [address] [place] [address] [address] [facility] PROFILE / HEMOGRAM (07/15/2019 6:49 AM CDT) [facility] WBC 4.57 4.20 - 10.70 [facility] 10*3/L SERVICES RBC 2.00 (L) 4.26 - 5.52 [facility] 10*6/L SERVICES HGB 6.7 (L) 12.2 - 16.4 [facility] g/dL SERVICES HCT 19.4 (L) 38.4 - 49.3 % [facility] MCH 33.5 (H) 26.1 - 32.7 pg [facility] MCV 97.0 (H) 81.7 - 95.6 fL [facility] MCHC 34.5 31.2 - 35.0 [facility] g/dL SERVICES PLT 61 (L) 150 - 328 [facility] 10*3/L SERVICES MPV 10.1 9.8 - 13.0 fL [facility] SERVICES RDW-CV 19.9 (H) 12.1 - 15.4 % [facility] SERVICES RDW-SD 69.5 (H) 38.5 - 51.6 fL [facility] SERVICES NRBC x10^3 <0.01 10*3/L [facility] SERVICES NRBC/100 WBC 0.0 0.0 - 10.0 [facility] /100 WBCs SERVICES IPF % 2.1Comment: Platelet 1.2 - 10.7 % [facility] count measured by SERVICES fluorescence method. Specimen Blood - VENOUS Performing Organization Address City/State/Zipcode Phone Number [facility] CLIA: [id number], [address] [place] [address] 555 [facility] XR ANKLE <3 VW RIGHT (07/15/2019 4:17 AM CDT) Specimen Impressions Performed At PACS/VR/DOSE Soft tissue swelling. No acute bony abnormality is present. Narrative Performed At EXAM: PACS/VR/DOSE XR ANKLE <3 VW RIGHT HISTORY: swelling COMPARISON: None FINDINGS: Imaging of the right ankle demonstrates mild soft tissue swelling with swelling of the pre-Achilles fat. Minima l tibial talar osteophytosis is seen anteriorly. There is no acute bony abnormality. C hronic posttraumatic remodeling is seen about the medial wall of the talar body and the bony margins of the lateral clear space. Procedure Note [facility], Radiant Results Inft User - 2019 5:57 AM CDT EXAM: XR ANKLE <3 VW RIGHT HISTORY: swelling COMPARISON: None FINDINGS: Imaging of the right ankle demonstrates mild soft tissue swelling with swelling of the pre-Achilles fat. Minima l tibial talar osteophytosis is seen anteriorly. There is no acute bony abnormality. Chronic posttraumatic remodeling is seen about the medial wall of the talar body and the bony margins of the lateral clear space. IMPRESSION Soft tissue swelling. No acute bony abnormality is present. Performing Organization Address City/[facility]/Zipcode Phone Number PACS/VR/DOSE MRSA / MSSA Screen by PCR, Nares (07/15/2019 4:09 AM CDT) Pathologist Sig nature MRSA Screen by PCR, Negative Negative [facility] Nares SERVICES MSSA Screen by PCR, Negative Negative [facility] Nares SERVICES MRSA/MSSA Positive? No No [facility] Specimen Swab - NARES, BOTH SIDES Performing Organization Address [facility] Phone Number [facility] CLIA: [id number], [address] [place], [place] [address] AMYLASE (07/14/2019 11:35 PM CDT) Pathologist Sig [facility] FREEMAN 56 35 - 110 U/L [facility] SERVICES-[facility] Specimen Blood - ARM, LEFT Performing Organization Address [facility] Phone Number [facility] CLIA: [id number], [address] [place] [address] SERVICES-[facility] [address] Gamma Glutamyl Transferase (07/14/2019 11:35 PM CDT)Only the most recent of2 resultswithin the time period is included. Pathologist Sig [facility] GGT 64 (H) 13 - 58 U/L [facility] SERVICES-[facility] Specimen Blood - ARM, LEFT Performing Organization Address [facility] [place] Phone Number [facility] CLIA: [id number], [address] [place] [address] SERVICES-[facility] [address] [facility] PATIENT FINANCIAL POLICY (07/08/2019 9:34 AM CDT) Specimen Performing Organization Address [facility] [place] Phone Number ALVARO NO SHOW OR MISSED APPOINTMENT POLICY ACKNOWLEDGEMENT (07/08/2019 9:33 AM CDT) Specimen Performing Organization Address [facility] [place] Phone Number HIM BILI UNCONJUGATED/BILI CONJUG (07/04/2019 12:12 AM CDT) Pathologist Sig nature BILI CONJ 0.1 0.0 - 0.3 mg/dL [facility] SERVICES-[facility] BILI UNCON 2.7 (H) 0.1 - 1.1 mg/dL [facility] Specimen Blood - ARM, RIGHT Performing Organization Address City/State/Zipcode Phone Number [facility] CLIA: [id number], [address] [place] [address] [phone] [facility] EMERGENCY DEPARTMENT DOCUMENTS (07/03/2019 12:01 AM CDT) Specimen Performing Organization Address City/State/Zipcode Phone Number HIM AUTHORIZATION FOR RELEASE OF PHI (07/01/2019 12:01 AM CDT)Only the most recent of3 resultswithin the time period is included. Specimen Performing Organization Address City/State/Zipcode Phone Number HIM MR ABDOMEN W WO CONTRAST (06/25/2019 6:53 PM BAG WASHER) Specimen Impressions Performed At PACS/VR/DOSE Cirrhotic liver morphology with sequela of portal hypertension including splenomegaly, periesophageal varices and trace ascites. 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 Heterogeneous appearing liver with cirrh otic nodules as above. No new arterial enhancing lesion identif ied Gallbladder hydrops. No cholelithiasis. Diffuse body wall anasarca. I, Saran Hernandez MD., have review ed this study and agree with the above report. Narrative Performed At MRI OF THE ABDOMEN WITH AND WITHOUT CONT RAST PACS/VR/DOSE HISTORY: 44-year-old male with cirrhosis and known segment 8 liver mass. Liver transplant candidate. COMPARISON: CT abdomen and pelvis with a nd without contrast 06/21/2019. TECHNIQUE: Multiplanar and multisequence images of the abdomen were obtained with and without contrast (18 m L IV Dotarem). FINDINGS: Lower chest: Lung bases are clear to the extent visual ized. Gynecomastia. LIVER: Nodular hepatic contour with diff use subcentimeter T1 hypointense nodules represents cirrhotic liver with siderotic nodules. A T1 isointense/mildly T1 hyperintense s egment VIII subcapsular lesion measuring 3.1 x 3.4 cm with questionable pseudocapsule but no arterial enhancement or restricted diffusion. No definite washout (lesion is essentially of the same intensity on pre contrast, arterial and delayed phases despite appearance of washout due to continued hyperenhancement of stranding parenchyma on delayed phase). The lesion is essentially T2 isointense. The lesion remains essential ly unchanged since October 2018. LI-RADS M. Few additional T1 hypointense regions scattered throug hout the hepatic dome particularly within the subcapsular regions of segment VII without definite arterial hyperenhancement or washout. Th e largest lesion of this sort measures 1.3 cm and appears T1 and T2 hy pointense. LI-RADS 3. No focal arterial enhancing lesion is id entified. GALLBLADDER & BILE DUCTS: Hydropic gallb ladder. No gallstones, wall thickening, or pericholecystic collectio n. No intrahepatic The common bile duct is prominent measur ing up to 1.0 cm just below the cystic duct insertion and 0.8 cm at the ampullary junction. Apparent filling defects within the CBD seen on T 2-weighted axial imaging are thought to be artifactual. No true filling defects or choledocholithiasis. PANCREAS: No ductal dilation or mass. Pa ncreas is poorly visualized on postcontrast images due to motion and po or image quality. SPLEEN: The spleen is enlarged measuring 13.7 cm. ADRENALS: Unremarkable. KIDNEYS: A 0.6 cm T2 hyperintense lesion in the interpolar region of the right kidney represents a simple cyst. N o hydronephrosis or mass. PERITONEUM: Trace perihepatic free fluid is seen. VESSELS: Patent main portal and splenic veins. Classic arterial hepatic anatomy. Mild periesophageal varices are better seen on CT. LYMPH NODES: No lymphadenopathy. BOWEL: Results portions of the GI tract demonstrate no significant abnormality. BONE & SOFT TISSUES: Unremarkable. Procedure Note [facility], Radiant Results Inft User - 2019 10:17 AM BAG WASHER MRI OF THE ABDOMEN WITH AND WITHOUT CONTRAST HISTORY: 44-year-old male with cirrhosis and known segment 8 liver mass. Liver transplant candidate. COMPARISON: CT abdomen and pelvis with a nd without contrast 06/21/2019. TECHNIQUE: Multiplanar and multisequence images of the abdomen were obtained with and without contrast (18 m L IV Dotarem). FINDINGS: Lower chest: Lung bases are clear to the extent visualized. Gynecomastia. LIVER: Nodular hepatic contour with diff use subcentimeter T1 hypointense nodules represents cirrhotic liver with siderotic nodules. A T1 isointense/mildly T1 hyperintense s egment VIII subcapsular lesion measuring 3.1 x 3.4 cm with questionable pseudocapsule but no arterial enhancement or restricted diffusion. No definite washout (lesion is essentially of the same intensity on pre contrast, arterial and delayed phases despite appearance of washout due to continued hyperenhancement of stranding parenchyma on delayed phase). The lesion is essentially T2 isointense. The lesion remains essential ly unchanged since October 2018. LI-RADS M. Few additional T1 hypointense regions sc attered throughout the hepatic dome particularly within the subcapsular ger ons of segment VII without definite arterial hyperenhancement or washout. Th e largest lesion of this sort measures 1.3 cm and appears T1 and T2 hy pointense. LI-RADS 3. No focal arterial enhancing lesion is id entified. GALLBLADDER & BILE DUCTS: Hydropic gallb ladder. No gallstones, wall thickening, or pericholecystic collectio n. No intrahepatic The common bile duct is prominent measur ing up to 1.0 cm just below the cystic duct insertion and 0.8 cm at the ampullary junction. Apparent filling defects within the CBD seen on T 2-weighted axial imaging are thought to be artifactual. No true filli ng defects or choledocholithiasis. PANCREAS: No ductal dilation or mass. Pa ncreas is poorly visualized on postcontrast images due to motion and po or image quality. SPLEEN: The spleen is enlarged measuring 13.7 cm. ADRENALS: Unremarkable. KIDNEYS: A 0.6 cm T2 hyperintense lesion in the interpolar region of the right kidney represents a simple cyst. N o hydronephrosis or mass. PERITONEUM: Trace perihepatic free fluid is seen. VESSELS: Patent main portal and splenic veins. Classic arterial hepatic anatomy. Mild periesophageal varices are better seen on CT. LYMPH NODES: No lymphadenopathy. BOWEL: Results portions of the GI tract demonstrate no significant abnormality. BONE & SOFT TISSUES: Unremarkable. IMPRESSION Cirrhotic liver morphology with sequela of portal hypertension including splenomegaly, periesophageal varices and trace ascites. 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 Heterogeneous appearing liver with cirrh otic nodules as above. No new arterial enhancing lesion identif ied Gallbladder hydrops. No cholelithiasis. Diffuse body wall anasarca. I, Saran Hernandez MD., have reviewe d this study and agree with the above report. Performing Organization Address City/State/Zipcode Phone Number PACS/VR/DOSE CT ABDOMEN PELVIS W WO CONTRAST (06/21/2019 2:57 PM BAG WASHER) Specimen Impressions Performed At PACS/VR/DOSE 1. The liver at segment VIII has a peripheral 3.1 cm n odular mass worrisome for HCC, has similar volume compared to prior exams, Li-RADS 4. 2. Cirrhotic liver, splenomegaly, and si gns of portal hypertension with left splenorenal and esophageal varices. 3. The gallbladder has now normal volume but has peric holecystic fluid and findings to suggest inflammation. 4. The colon and rectosigmoid have mild diffuse wall t hickening which may reflect colitis. 5. Resolution of previous seen pleural e ffusions. Narrative Performed At EXAM: CT ABDOMEN AND PELVIS WITH CONTRAS T PACS/VR/DOSE HISTORY: 44-year-old male with an HCC place new triple phase liver protocol COMPARISON: CT 2 11/15/2018 and MRI 2018 TECHNIQUE AND FINDINGS: Contiguous axial imaging from the level of the lung bases through the pubic symphysis was pe rformed after the uncomplicated administration of 120 cc of intravenous Omnipaque contrast. Coronal and sagittal reconstructions were obtained. Arterial phase is incomplete as the dome of liver is not included. DOSE: DLP is 2988 mGy/cm. FINDINGS: LOWER THORAX: The lungs bases are clear. No cardiomegaly. LIVER: The liver has a fine nodular cont our consistent with cirrhosis. At the periphery of segment VIII there i s a hypodense lesion within the pseudocapsule measuring 3.2 cm, has jerry lar morphology compared to prior exams. The exam is incomplete as the art erial phase over the lesion is clipped. No other enhancing or worrisome lesion noted. No biliary ductal dilation. GALLBLADDER AND BILIARY TREE: No biliary ductal dilati on. The gallbladder has no normal volume and has mild perich olecystic fluid or inflammation. The lumen appears clear. SPLEEN: Splenomegaly. PANCREAS: No ductal dilation or masses. ADRENAL GLANDS: No adrenal nodules. KIDNEYS: No hydronephrosis, stones, or m asses. PERITONEUM AND RETROPERITONEUM: No free air or fluid. LYMPH NODES: No lymphadenopathy. GI TRACT: No dilation or wall thickening . PELVIS/BLADDER: Unremarkable. VESSELS: Collateral circulation variance s from portal hypertension at splenorenal region and distal esophagus. BONES AND SOFT TISSUES: No suspicious ly tic or sclerotic bony lesions. Procedure Note [facility], Radiant Results Inft User - 2019 5:43 PM BAG WASHER EXAM: CT ABDOMEN AND PELVIS WITH CONTRAST HISTORY: 44-year-old male with an HCC pl ila new triple phase liver protocol COMPARISON: CT 2 11/15/2018 and MRI 2018 TECHNIQUE AND FINDINGS: Contiguous axial imaging from the level of the lung bases through the pubic symphysis was pe rformed after the uncomplicated administration of 120 cc of intravenous Omnipaque contrast. Coronal and sagittal reconstructions were obtained. Arterial phase is incomplete as the dome of liver is not included. DOSE: DLP is 2988 mGy/cm. FINDINGS: LOWER THORAX: The lungs bases are clear. No cardiomegaly. LIVER: The liver has a fine nodular cont our consistent with cirrhosis. At the periphery of segment VIII there i s a hypodense lesion within the pseudocapsule measuring 3.2 cm, has jerry lar morphology compared to prior exams. The exam is incomplete as the art erial phase over the lesion is clipped. No other enhancing or worrisome lesion noted. No biliary ductal dilation. GALLBLADDER AND BILIARY TREE: No biliary ductal dilation. The gallbladder has no normal volume and has mild perich olecystic fluid or inflammation. The lumen appears clear. SPLEEN: Splenomegaly. PANCREAS: No ductal dilation or masses. ADRENAL GLANDS: No adrenal nodules. KIDNEYS: No hydronephrosis, stones, or m asses. PERITONEUM AND RETROPERITONEUM: No free air or fluid. LYMPH NODES: No lymphadenopathy. GI TRACT: No dilation or wall thickening . PELVIS/BLADDER: Unremarkable. VESSELS: Collateral circulation variance s from portal hypertension at splenorenal region and distal esophagus. BONES AND SOFT TISSUES: No suspicious ly tic or sclerotic bony lesions. IMPRESSION 1. The liver at segment VIII has a perip heral 3.1 cm nodular mass worrisome for HCC, has similar volume compared to prior exams, Li-RADS 4. 2. Cirrhotic liver, splenomegaly, and si gns of portal hypertension with left splenorenal and esophageal varices. 3. The gallbladder has now normal volume but has pericholecystic fluid and findings to suggest inflammation. 4. The colon and rectosigmoid have mild diffuse wall thickening which may reflect colitis. 5. Resolution of previous seen pleural e ffusions. Performing Organization Address City/State/Zipcode Phone Number PACS/VR/DOSE URINE DRUG (LCMSMS) - COMPREHENSIVE DRUG PANEL (06/21/2019 10:00 AM BAG WASHER) Morphine-Interpretatio Negative Negative [facility] Codeine-Interpretation Negative Negative [facility] Hydrocodon-LCMS 56 (H) <50 ng/mL [facility] Hydrocodon-Creatinine 106 ng/mg [facility] Normalized SERVICES Hydrocodon-Interpretat Positive (A) Negative [facility] ion SERVICES Hydromorph-Interpretat Negative Negative [facility] ion SERVICES Norhydrocod-LCMS 118 (H) <50 ng/mL [facility] Norhydrocod-Creatinine 224 ng/mg [facility] Normalized SERVICES Norhydrocod-Interpreta Positive (A) Negative [facility] tion SERVICES Oxycodone-Interpretati Negative Negative [facility] on SERVICES Oxymorph-Interpretatio Negative Negative [facility] n SERVICES Noroxycod-Interpretati Negative Negative [facility] on SERVICES 6-ESTRADA(Heroin)-Interpre Negative Negative [facility] tation SERVICES Tramadol-LCMS 2,372 (H) <50 ng/mL [facility] Tramadol-Creatinine 4,501 ng/mg [facility] Normalized SERVICES Tramadol-Interpretatio Positive (A) Negative [facility] Propoxyph-Interpretati Negative Negative [facility] Normeperid-Interpretat Negative Negative [facility] Meperidine-Interpretat Negative Negative [facility] Methadone-Interpretati Negative Negative [facility] EDDP-Interpretation Negative Negative [facility] Norfentan-Interpretati Negative Negative [facility] Fentanyl-Interpretatio Negative Negative [facility] Buprenorph-Interpretat Negative Negative [facility] SERVICES Norbupren-Interpretati Negative Negative [facility] Carisopro-Interpretati Negative Negative [facility] Meprobamat-Interpretat Negative Negative [facility] Butalbital-Interpretat Negative Negative [facility] SERVICES SECOBARB-INTERPRETATIO Negative Negative [facility] N [facility] PHENOBARB-INTERPRETATI Negative Negative [facility] ON [facility] Cannabinoid-Interpreta Negative Negative [facility] tion SERVICES LAJGN-LS-PIDZO-INTERPR Negative Negative [facility] ETATION SERVICES 2-CJTEG-UU-LCMS 121 (H) <50 ng/mL [facility] 3-JKLHE-HC-CREATININE 230 ng/mg [facility] NORMALIZED SERVICES 2-JDFCJ-LY-INTERPRETAT Positive (A) Negative [facility] ION SERVICES LORAZEPAM-INTERPRETATI Negative Negative [facility] ON [facility] NORDIAZEP-INTERPRETATI Negative Negative [facility] ON SERVICES TEMAZEPAM-INTERPRETATI Negative Negative [facility] ON SERVICES OXAZEPAM-INTERPRETATIO Negative Negative [facility] N SERVICES Amphetamine-Interpreta Negative Negative [facility] tion SERVICES METHAMPH-INTERPREPRETA Negative Negative [facility] TION SERVICES BENZOYLE-INTERPRETATIO Negative Negative [facility] N [facility] PHENCYCLID-INTERPRETAT Negative Negative [facility] ION SERVICES MDA-Interpretation Negative Negative [facility] MDMA-Interpretation Negative Negative [facility] MDEA-Interpretation Negative Negative [facility] Ethyl Sulfate Negative Negative [facility] Interpretation SERVICES Ethyl Glucuronide Negative Negative [facility] Interpretation SERVICES CREAT U 52.7 mg/dL [facility] Interpretation of Drug Stuart Lynch is a 44-year- old male with chronic back pain and end-stage liver disease secondary to alcoholic cirrhosis currently being evaluated for possible liver transplant. [facility] RY Panel Results SERVICES The urine drug screen by [facility] is positive for hydrocodone and its metabolite norhydrocodone. This is consistent with this patient's currently identified prescriptions. The urine drug screen is pos itive for tramadol. This is consistent with this patient's currently identified prescriptions. The urine drug screen is pos itive for 7-aminoclonazepam, a metabolite of clonazepam. This is not consistent with this patient's currently identified prescriptions. Clonazepam is typically detectable in the urine for up to 4 days. The urine creatinine result indicates that the urine w as not diluted. Maynor Dominguez MD 06/30/2019 4:47 PM Specimen Urine - URINE, CLEAN CATCH Narrative Performed At Test developed and characteristics determined by [facility] Laboratory Services. Performing Organization Address City/State/Zipcode Phone Number [facility] CLIA: [id number], [address] [place] [address] 555 [facility] MAGNESIUM, URINE RANDOM (06/21/2019 10:00 AM BAG WASHER) Pathologist Sig nature MG URINE 7.9 mg/dL [facility] Specimen Urine - URINE, CLEAN CATCH Performing Organization Address [facility] [place] Phone Number [facility] CLIA: [id number], [address] [place] [address] 555 [facility] SODIUM, URINE RANDOM (06/21/2019 10:00 AM BAG WASHER) Pathologist Sig nature NA URINE 102 mmol/L [facility] SERVICES-[facility] Specimen Urine - URINE, CLEAN CATCH Performing Organization Address [facility] [place] Phone Number [facility] CLIA: [id number], [address] [place] [address] [phone] SERVICES-[facility] TOTAL PROTEIN, URINE RANDOM (06/21/2019 10:00 AM BAG WASHER) Pathologist Sig nature T. PROT U 13 mg/dL [facility] SERVICES-[facility] Specimen Urine - URINE, CLEAN CATCH Narrative Performed At Random Urine Total Protein Reference [facility] S [facility] Ranges Random Specimen: Less than 10 mg/dL First Morning Specimen: Less than 20 mg/dL Performing Organization Address [facility] [place] Phone Number [facility] CLIA: [id number], [address] [place] [phone] [facility] CREATININE, URINE RANDOM (06/21/2019 10:00 AM BAG WASHER) Pathologist Sig nature CREAT U 51.8 mg/dL [facility] SERVICES-[facility] Specimen Urine - URINE, CLEAN CATCH Performing Organization Address [facility] [place] Phone Number [facility] CLIA: [id number], [address] [place] [address] [facility] HIV 1/2 AG-AB WITH REFLEX (06/21/2019 9:54 AM BAG WASHER) Pathologist Sig nature HIV 1/2 Ag-Ab with Negative Negative [facility] Reflex [facility] HIV Semi-quantitative 0.41 [facility] Specimen Blood - ARM, LEFT Narrative Performed At Non-reactive for HIV-1 antigen and [facility] SER [facility] HIV-1/HIV-2 antibodies. No laboratory CAMPUS evidence of HIV infection. Repeat in 2-4 weeks if acute HIV infection is suspected. Performing Organization Address City/State/Zipcode Phone Number [facility] CLIA: [id number], [address] [place] [address] [facility] QUANTIFERON-TB GOLD (06/21/2019 9:54 AM BAG WASHER) Pathologist Sig nature Nil 0.133 IU/mL [facility] TB1 minus Nil 0.014 IU/mL [facility] TB2 minus Nil 0.006 IU/mL [facility] Mitogen minus Nil 7.098 IU/mL [facility] QFT Gold Plus Result Negative Negative [facility] Specimen Blood - ARM, LEFT Narrative Performed At Test results are calculated in accordance with an [facility] FDA-approved algorithm run on QuantiFERO N(R) software. The QuantiFERON(R) TB Gold Plus (in Tube) assay is int ended for use as an aid in diagnosis of TB infection. Negati ve results suggest that there is not TB infection. In pat ients with high suspicion of exposure, a negative test shoul d be repeated. A positive test indicates infection with Mycobacterium tuberculosis. Among individuals without tuberculosis infection, a positive test may be due to exposure to M. kansasii, M. szulgai, or M. marinum. As with any screening test, positive results must be interpret ed with caution and in context with associated risk facto rs. Diagnosing or excluding tuberculosis disease and asses sing the probability of latent TB infection requires a combination of epidemiological, historical, medical an d diagnostic findings that should be taken into account when interpreting QuantiFERON(R) TB results. For further information, refer to http://www.cdc.gov/mmwr/pdf/rr/hl2539.pd f |Nil | TB1 minus | TB2 minus | Mitogen minus | R esult | Interpretation |(IU/mL) | Nil(IU/mL)| Nil(IU/ml)| Nil(IU/mL) | | +--------+ + + +---- ----+- | | >=0.35 | | | | | <=8.0 | and >=25% | Any | Any | Pos | | of Nil | of Nil | | | | +--------+ + + +---- ----+ M.tuberculosis | | Any | >=0.35 | | | infection likely | <=8.0 | | and >=25% | Any | Pos | | | | of Nil | | | +--------+ + + +---- ----+- | | <0.35 | <0.35 | | | | <=8.0 | or >=0.35 | or >=0.35 | >=0.50 | Neg | M.tuberculosis | | and <25% | and <25% | | | infection NOT | | of Nil | of Nil | | | likely +--------+ + + +---- ----+- | | <0.35 | <0.35 | | | | <=8.0 | or >=0.35 | or >=0.35 | <0.50 | | | | and <25% | and <25% | | | Likelihood of | | of Nil | of Nil | | | M.tuberculosis +--------+ | I ND* | infection cannot | | | | be determined . | >8.0 | Any | | + ------ *Indeterminate Performing Organization Address [facility] [place] Phone Number [facility] CLIA: [id number], [address] [place] [address] 555 [facility] HSV 1 AND 2 GLYCOPROTEIN G IGG (06/21/2019 9:54 AM BAG WASHER) Pathologist Sig nature HSV I IgG Positive Negative [facility] HSV II IgG Positive Negative [facility] Specimen Blood - ARM, LEFT Narrative Performed At Positive - IgG antibody to HSV 1 and/or HSV 2 detected. [facility] Negative - No HSV 1 and/or HSV 2 antibod y detected. Equivocal - A second sample should be sent. Performing Organization Address [facility] Phone Number [facility] CLIA: [id number], [address] [place] [address] 555 [facility] VITAMIN D, 25-OH (06/21/2019 9:54 AM BAG WASHER) Pathologist Sig nature VIT D 25OH 46 25 - 80 ng/mL [facility] Specimen Blood - ARM, LEFT Narrative Performed At Deficiency: <20 ng/mL [facility] Insufficiency: 20-24 ng/mL Optimal: 25-80 ng/mL Performing Organization Address [facility] [place] Phone Number [facility] CLIA: [id number], [address] [place] [address] [phone] [place] [address] HAV ANTIBODY (IGG AND IGM) (06/21/2019 9:54 AM BAG WASHER) Pathologist Sig nature HAV Total Negative [facility] HAVT Semi-Quantitative 1.73 [facility] Specimen Blood - ARM, LEFT Performing Organization Address City/[facility] [place] Phone Number [facility] CLIA: [id number], [address] [place] [address] 555 [facility] CRYPTOCOCCAL ANTIGEN CSF/SERUM (06/21/2019 9:54 AM BAG WASHER) Pathologist Sig nature Specimen Tested Serum [facility] Cryptococcal Antigen Negative Negative [facility] Specimen Blood - ARM, LEFT Performing Organization Address [facility]/Zipcode Phone Number [facility] CLIA: [id number], [address] [place] [address] 555 [facility] ABO RH (06/21/2019 9:54 AM BAG WASHER) Pathologist Sig nature ABO & RH O POSITIVE LAB Comment: Performed at [facility] Laboratory Services - [facility] Blood [facility] [address] [place] [address] Toll Free: [phone] CLIA No. [id number] Specimen Blood - VENOUS Performing Organization Address [facility]/Zipcode Phone Number [facility] HBC ANTIBODY (IGM & IGG) (06/21/2019 9:54 AM BAG WASHER) Pathologist Sig nature HBC Negative [facility] HBC Semi-Quantitative 3.20 [facility] Specimen Blood - ARM, LEFT Performing Organization Address City/[facility] [place] Phone Number [facility] CLIA: [id number], [address] [place] [address] 555 [facility] HCV ANTIBODY (06/21/2019 9:54 AM BAG WASHER) Pathologist Sig nature HCV Ab Negative [facility] HCV Semi-Quantitative 0.33 [facility] Specimen Blood - ARM, LEFT Performing Organization Address [facility] [place] Phone Number [facility] CLIA: [id number], [address] [place] [address] 555 [facility] HEPATITIS B SURFACE ANTIGEN (06/21/2019 9:54 AM BAG WASHER) Pathologist Sig nature HBsAg Negative Negative [facility] SERVICES-[facility] HBsAg 0.08 [facility] Semi-Quantitative SERVICES-[facility] Specimen Blood - ARM, LEFT Performing Organization Address City/State/Zipcode Phone Number [facility] CLIA: [id number], [address] [place] [address] [phone] SERVICES-[facility] HEPATITIS B SURFACE ANTIBODY (06/21/2019 9:54 AM BAG WASHER) Pathologist Sig nature HBsAB Negative [facility] HBsAb 1.30 mIU/mL [facility] Semi-Quantitative SERVICES Specimen Blood - ARM, LEFT Narrative Performed At Interpretation: Hepatitis B Surface An tibody [facility] Negative - Patient is considered to be not immu ne to infection with HBV. Positive - Anti-HBs detected at greater than or equal to 12 mIU/mL. Patient is considered to be immune to infection with HBV. Performing Organization Address City/[facility] [place] Phone Number [facility] CLIA: [id number], [address] [place] [address] 555 [facility] ANTI-NUCLEAR ANTIBODY SCREEN(aka ORLANDO (EIA)) (06/21/2019 9:54 AM BAG WASHER) Pathologist Sig nature ORLANDO Negative Negative [facility] Specimen Blood - ARM, LEFT Narrative Performed At Negative - No Anti-Nuclear Antibodies de tected by IFA. [facility] Positive - ORLANDO IFA screen performed with a 1:80 diluti on in adults and a 1:40 dilution in pediatrics. Any ORLANDO "Pos itive" will have titer performed and reported s eparately. Negative - No Anti-Nuclear Antibodies de tected by IFA. Positive - [place] IFA screen performed with a 1:80 diluti on in adults and a 1:40 dilution in pediatrics. Any [place]O "Pos itive" will have titer performed and reported separately. Performing Organization Address City/State/Zipcode Phone Number [facility] CLIA: [id number], [address] [place] [address] [address] [facility] VZV ANTIBODY SCREEN(aka VARICELLA ANTIBODY) (06/21/2019 9:54 AM BAG WASHER) Pathologist Sig nature VZV IgG antibody Positive Negative [facility] Specimen Blood - ARM, LEFT Narrative Performed At Positive - Indicates the patient was exposed to VZV th rough [facility] infection or vaccination. Negative - Indicates the patient could be susceptible to VZV infection. Equivocal - A second specimen should be sent for testi ng. Performing Organization Address City/[facility]/Zipcode Phone Number [facility] CLIA: [id number], [address] [place] [address] [address] [facility] CYTOMEGALOVIRUS ANTIBODY IGG(aka CMV ANTIBODY, IGG) (06/21/2019 9:54 AM BAG WASHER) Pathologist Sig nature CMV IGG Positive Negative [facility] Specimen Blood - ARM, LEFT Narrative Performed At Positive - Indicates current or past CMV infection. [facility] Negative - Indicates no serologic evidence of CMV infe ction. Cannot exclude acute CMV infection. Equivocal - A second specimen should be sent for repea t testing. Performing Organization Address [facility] [place] Phone Number [facility] CLIA: [id number], [address] [place] [address] [address] [facility] EBV AB TO NUCLEAR AG,IGG (06/21/2019 9:54 AM BAG WASHER) Pathologist Sig nature EBV Nuclear Antigen Positive (A) Negative [facility] IgG SERVICES Specimen Blood - ARM, LEFT Narrative Performed At Positive - IgG to EBV nuclear antigen de tected. [facility] Negative - No EBV nuclear antigen IgG de tected. Equivocal - A second sample should be sent. Performing Organization Address [facility] [place] Phone Number [facility] CLIA: [id number], [address] [place] [address] [address] [facility] TOXOPLASMA IGG ANTIBODY (06/21/2019 9:54 AM BAG WASHER) Pathologist Sig nature TOXO IGG Negative [facility] Specimen Blood - ARM, LEFT Narrative Performed At Positive - Indicates current or past T. gondii infection. [facility] Negative - No serologic evidence of T. gondii infectio n. Cannot exclude acute T. gondii infection . Equivocal - A second sample should be sent. Performing Organization Address City/[facility] [place] Phone Number [facility] CLIA: [id number], [address] [place] [address] [address] [facility] RUBELLA SCREEN (LANCE) IGG (06/21/2019 9:54 AM BAG WASHER) [facility] Rubella screen IgG Positive Negative [facility] SERVIC ES Specimen Blood - ARM, LEFT Narrative Performed At Positive - Indicates the patient was exposed to Rubell a [facility] through infection or vaccination. Negative - Indicates the patient could be susceptible to Rubella infection. Equivocal - A second specimen should be sent. Performing Organization Address City/[facility] [place] Phone Number [facility] CLIA: [id number], [address] [place] [address] [address] [facility] MEASLES IGG (06/21/2019 9:54 AM BAG WASHER) [facility] MEASLES IgG Positive Negative [facility] Specimen Blood - ARM, LEFT Narrative Performed At Positive - Indicates that the patient was exposed to M easles [facility] through infection or vaccination. Negative - Indicates patient could be susceptible to M easles infection. Equivocal - A second sample should be sent. Performing Organization Address [facility] Phone Number [facility] CLIA: [id number], [address] [place] [address] [address] [facility] G6PD SCREENING TEST (06/21/2019 9:54 AM BAG WASHER) [facility] G6PD SCREEN Normal Normal [facility] Specimen Blood - ARM, LEFT Narrative Performed At Normal G6PD activity. No evidence of G 6PD deficiency. [facility] Performing Organization Address [facility] Phone Number [facility] CLIA: [id number], [address] [place] [address] [address] [facility] ALPHA FETOPROTEIN(aka AFP) (06/21/2019 9:54 AM BAG WASHER) [facility] AFP 19.3 (H) <=7.5 ng/mL [facility] Specimen Blood - ARM, LEFT Narrative Performed At Biotin has been reported to cause a negative bias, int erpret [facility] results relative to patient's use of biotin. Performing Organization Address City/[facility] [place] Phone Number [facility] CLIA: [id number], [address] [place] [address] [address] [facility] THYROXINE, TOTAL(aka T4) (if TSH abnormal) (06/21/2019 9:54 AM BAG WASHER) Pathologist Sig nature T4 TOTAL 6.4 5.5 - 11.0 mcg/dL [facility] SERVICE S Specimen Blood - ARM, LEFT Performing Organization Address City/[facility]/Zipcode Phone Number [facility] CLIA: [id number], [address] [place] [address] [address] [facility] TRIIODOTHYRONINE, LEVEL (06/21/2019 9:54 AM BAG WASHER) Pathologist Sig nature T3 100.0 97.0 - 170.0 ng/dL [facility] SERVIC ES Specimen Blood - ARM, LEFT Performing Organization Address City/[facility]/Zipcode Phone Number [facility] CLIA: [id number], [address] [place] [address] 555 [facility] TOTAL IRON BINDING CAPACITY (06/21/2019 9:54 AM BAG WASHER) Pathologist Sig [facility] TIBC 207 (L) 250 - 410 ug/dL [facility] % FE SAT 50 20 - 50 % [facility] SERVICES-[facility] Specimen Blood - ARM, LEFT Performing Organization Address [facility] [place] Phone Number [facility] CLIA: [id number], [address] [place], [place] [address] [facility] IMMUNOGLOBULIN G A M PANEL (06/21/2019 9:54 AM BAG WASHER) Pathologist Sig [facility] IgA 1,690 (H) 70 - 312 mg/dL [facility] IgG 2,160 (H) 636-1,600 mg/dL [facility] IgM 84 56 - 352 mg/dL [facility] Specimen Blood - ARM, LEFT Performing Organization Address City/[facility] [place] Phone Number [facility] CLIA: [id number], [address] [place] [address] [phone] [facility] TEST, SERUM (06/21/2019 9:54 AM BAG WASHER) Pathologist Sig [facility] PREG SERUM Negative [facility] Specimen Blood - ARM, LEFT Narrative Performed At Less than 10 IU/L. If low titer or [facility] ectopic is suspected, resubmit specimen in 48-72 hours. Performing Organization Address City/State/Zipcode Phone Number [facility] CLIA: [id number], [address] [place] [phone] [facility] IRON SERUM (06/21/2019 9:54 AM BAG WASHER) Pathologist Sig nature IRON 103 50 - 160 ug/dL [facility] Specimen Blood - ARM, LEFT Performing Organization Address [facility] [place] Phone Number [facility] CLIA: [id number], [address] [place] [address] [phone] [facility] FERRITIN SERUM (06/21/2019 9:54 AM BAG WASHER) Pathologist Sig nature FERRITIN 633.0 (H) 18.0 - 464.0 ng/mL [facility] Specimen Blood - ARM, LEFT Narrative Performed At Biotin has been reported to cause a [facility] negative bias, interpret results relative to patient's use of biotin. Performing Organization Address [facility] [place] Phone Number [facility] CLIA: [id number], [address] [place] [address] [phone] [facility] CHOLESTEROL (06/21/2019 9:54 AM BAG WASHER) Pathologist Sig nature CHOL 116 (L) 120 - 200 mg/dL [facility] Specimen Blood - ARM, LEFT Performing Organization Address [facility]/Zipcode Phone Number [facility] CLIA: [id number], [address] [place] [phone] [facility] VITAMIN K1, LEVEL (06/21/2019 9:54 AM BAG WASHER) Pathologist Sig nature VIT K1 8.92 (H) 0.22 - 4.88 [facility] Comment: nmol/L Elevated vitamin K concentration may be associated wi th increased lipid concentration. INTERPRETIVE INFORMATION: Vitamin K1, Serum Vitamin K concentration is reported as nanomoles per l iter (nmol/L). To convert concentration to nanograms per mi lliliter (ng/mL), multiply the result by 0.45. See Compliance Statement B: [employer]/CS Performed by [employer], [address] [place] [id number] [email or web address], Skyler Urbina MD, Lab. Director Specimen Blood - ARM, LEFT Performing Organization Address [facility] Phone Number [facility] [place] [address] [place] [address] VITAMIN A, SERUM OR PLASMA (06/21/2019 9:54 AM BAG WASHER) Pathologist Sig nature RET A <0.06 (L) 0.30 - 1.20 [facility] mg/L RET PALM 0.05 0.00 - 0.10 [facility] mg/L REVA INTER See Note [facility] Comment: Retinol greater than 0.3 mg/L is typically associated with adequate liver stores in adults, and is within normal limits for children. Retinol less than 0.10 mg/L may indicate dep leted liver stores and severe deficiency. Test developed and characteristics determined by [facility]. See Compliance Statement B: [employer]/ CS Performed by [employer], [address] [place], [place] [id number] [email or web address], Skyler Urbina MD, Lab. Director Specimen Blood - ARM, LEFT Performing Organization Address [facility] Phone Number [facility] [address] [place] [address] VITAMIN E, SERUM OR PLASMA (06/21/2019 9:54 AM BAG WASHER) Pathologist Sig nature ALPHA IRINA 6.3 5.5 - 18.0 mg/L [facility] Comment: Test developed and characteristics determined by [employer]. See Compliance Statement B: [employer]/ CS GAMMA IRINA 1.5 0.0 - 6.0 mg/L [facility] Comment: Performed by [employer], [address] [place] [id number] [email or web address], Skyler Urbina MD, Lab. Director Specimen Blood - ARM, LEFT Performing Organization Address [facility] Phone Number [facility] [address] [place] [address] ZINC, SERUM (06/21/2019 9:54 AM BAG WASHER) Pathologist Sig nature ZINC 51.4 (L) 60.0 - 120.0 [facility] [place] Comment: ug/dL INTERPRETIVE INFORMATION: Zinc, Serum or Plasma Elevated results may be due to skin or collection-rela kathleen contamination, including the use of a noncertified met al-free collection/transport tube. If contamination concerns e xist due to elevated levels of serum/plasma zinc, confirmation wit h a second specimen collected in a certified metal-free tube is r ecommended. Circulating zinc concentrations are dependent on album in status and are depressed with malnutrition. Zinc may also b e lowered with infection, inflammation, stress, oral contracepti ves, and . Zinc may be elevated with zinc supplement ation or fasting. Elevated zinc concentrations may interfere with copper absorption. Test developed and characteristics determined by [employer]. See Compliance Statement B: [employer]/ Performed by [employer], [address] [place] [id number] [email or web address], Skyler Urbina MD, Lab. Director Specimen Blood - ARM, LEFT Performing Organization Address [facility]/Zipcode Phone Number [address] [phone] CONSENT FOR TRANSPLANT EVALUATION (06/21/2019 12:01 AM BAG WASHER) Specimen Performing Organization Address [facility] [place] Phone Number HIM LYMPHOCYTE CROSSMATCH X-RENAL (06/21/2019 12:00 AM BAG WASHER) Pathologist [facility] TEST DATE 06/24/2019 HLA DONOR STUART LYNCH HLA DONOR [id number] HLA SERUM DATE 06/21/2019 HLA COMMENTS N=Negative P=Positive U=Unreportab le due to poor cell viability. HLA Complement Dependent Cytotox icity autocrossmatches were performed between patient's serum and T and B lymphocyte s. The autocrossmatches were negative with serum tested. Performed at [facility] Pathology Clinical Services [facility] - Tissue Antigen DIRECTOR: OMAR VALLEJO MD, PHD [address] [place] [address] CLIA No. [id number] ANALYTE SPECIFIC REAGENT STA TEMENT: This test was developed and its performance characteristics determined b y the [facility] Tissue Antigen Laboratory. The test has not been cleared or approved by the [place] [employer] (USFDA). The USFDA does not require licensing of reagents used in these tests. VERIFIED BY: Alex Stevenson ([employer] signatQiandao) 06/28/2019 REPORT DTE 06/28/2019 HLA TECH CA HLA T 22 N HLA T DTT N HLA B 22 N HLA B DTT N HLA Specimen Blood - VENOUS Performing Organization Address City/[facility]/Zipcode Phone Number HLA ANTIBODY SCREEN X-RENAL (06/21/2019 12:00 AM BAG WASHER) Pathologist Sig nature SERUM DTE 06/21/2019 HLA CALCULATED PRA 2 HLA TEST TYPE Multi Ag HLA TEST DATE 07/17/2019 HLA T-PRA 0 HLA T-ID HLA METHOD Luminex HLA COMMENTS Performed at [facility] Pathology Clinical Services Laboratories - Tissue Antigen HLA DIRECTOR: OMAR VALLEJO MD, PHD [address] [place] [address] CLIA No. [id number] ANALYTE SPECIFIC REAGENT STA TEMENT: This test was developed and its performance characteristics determined b y the [facility] Tissue Antigen Laboratory. The test has not been cleared or approved by the [place] [employer] (USFDA). The USFDA does not require licensing of reagents used in these tests. VERIFIED BY: Alex Stevenson ([email or web address]) 07/20/2019 REPORT DTE 07/20/2019 HLA TECH QW HLA TEST DATE 07/17/2019 HLA B-PRA 7 HLA B-ID DR:103 HLA METHOD Luminex HLA COMMENTS Performed at [facility] Pathology Clinical Services Laboratories - Tissue Antigen HLA DIRECTOR: OMAR VALLEJO MD, PHD [address] [place] [address] CLIA No. [id number] ANALYTE SPECIFIC REAGENT STA TEMENT: This test was developed and its performance characteristics determined b y the [facility] Tissue Antigen Laboratory. The test has not been cleared or approved by the [place] [employer] and [employer] (USFDA). The USFDA does not require licensing of reagents used in these tests. VERIFIED BY: Alex Stevenson ([employer] signatDeliveryEdge e) 07/20/2019 REPORT DTE 07/20/2019 HLA TECH QW HLA Specimen Blood - VENOUS Performing Organization Address City/[facility] Phone Number HLA HLA-ABC-DR TYPING X-RENAL (06/21/2019 12:00 AM BAG WASHER) Pathologist Sig nature TEST DATE 06/27/2019 HLA CELL SRCE PB HLA HLA A 2 HLA HLA A 11 HLA HLA B 39 HLA HLA B 61 HLA HLA Bw 6 HLA HLA Bw 6 HLA HLA C 7 HLA HLA C [address] HLA HLA DRB3/4/5 53 HLA HLA DRB3/4/5 53 HLA HLA DQ 8 HLA HLA DQ 2 HLA HLA DQA1* 02 HLA HLA DQA1* 03 HLA HLA DPB1* 04:02 HLA HLA DPB1* 14:01 HLA HLA DPA1* 01:03 HLA HLA DPA1* 02:01 HLA COMMENTS HLA Antigens were confirmed by PCR-SSO techniques. HLA Performed at [facility] Pathology Clinical Services [facility] - Tissue Antigen DIRECTOR: OMAR VALLEJO MD, PHD [address] [place], [place] [address] CLIA No. [id number] ANALYTE SPECIFIC REAGENT STA TEMENT: This test was developed and its performance characteristics determined b y the [facility] Tissue Antigen Laboratory. The test has not been cleared or approved by the [place] [employer] and [employer]UG [employer]ISTR[employer] (USFDA). The USFDA does not require licensing of reagents used in these tests. VERIFIED BY: Alex Stevenson (electronic signatur e) 06/28/2019 REPORT DTE 06/28/2019 HLA TECH CA HLA Specimen Blood - VENOUS Performing Organization Address City/State/Zipcode Phone Number HLA TRANSPLANT/EXTERNAL PROVIDED - REFERRAL PACKET (06/13/2019 12:01 AM BAG WASHER) Specimen Performing Organization Address City/State/Zipcode Phone Number [facility] ADC,CLC OR LCC ONLY - INFLUENZA A & B DIRECT ANTIGEN (06/12/2019 1:24 AM BAG WASHER)Only the most recent of2 resultswithin the time period is included. Pathologist Sig nature Influenza A Negative Negative [facility] Influenza B Negative Negative [facility] Specimen Swab - NARE, LEFT SIDE Performing Organization Address City/State/Zipcode Phone Number [facility] CLIA: [id number], [address] [place], [place] [address] ASSIGNMENT OF BENEFITS (06/12/2019 12:47 AM BAG WASHER)Only the most recent of2 results within the time period is included. Specimen Performing Organization Address City/State/Zipcode Phone Number HIM NOTICE OF PRIVACY PRACTICES (06/12/2019 12:12 AM BAG WASHER)Only the most recent of4 resultswithin the time period is included. Specimen Performing Organization Address City/State/Zipcode Phone Number [facility] CT ABDOMEN PELVIS W CONTRAST (06/07/2019 8:54 AM BAG WASHER)Only the most recent of3 resultswithin the time period is included. Specimen Impressions Performed At PACS/VR/DOSE 1. Circumferential thickening of the rectum with mes orectal fat stranding. Findings may represent proctitis/colitis . No definite mass identified. Recommend direct visualization. 2. Cirrhotic morphology with sequela o f portal hypertension including small volume ascites and portosystemic c ollaterals. 3. Unchanged hepatic dome subcapsular 3.4 cm lesion concerning for HCC. Nonemergent evaluation with multiphasic CT or MRI exam liver protocol is recommended. 4. Gallbladder hydrops. No radiopaque cholelithiasis. 5. Trace right and small left pleural effusions. 6. Body wall anasarca. Preliminary Report Dictated by Resident: Hari London I, Saran Hernandez MD., have review ed this study and agree with the above report. Narrative Performed At EXAM: CT ABDOMEN AND PELVIS WITH CONTRAS T PACS/VR/DOSE HISTORY: 44-year-old male with left lowe r quadrant pain, abdominal distention and hematochezia. Grade 1 gastroesophageal varices on endoscopy dated 05/29/2019. COMPARISON: CT abdomen and pelvis with c ontrast 06/02/2019. DOSE: 456mGycm TECHNIQUE AND FINDINGS: Contiguous axial imaging from the level of the lung bases through the proximal thighs was performed after the administration of 120 cc of intravenous Omnipaque contrast . Coronal and sagittal reconstructions were obtained. Auto mA and/or iterative reconstruction were used to reduce radiation dose. FINDINGS: LOWER THORAX: Trace right and small left pleural effusion with bilateral lower lobe atelectasis. LIVER: Cirrhotic morphology with nodular surface conto ur. Liver parenchyma appears heterogeneous. Isoattenuating partially exophytic subca psular lesion in the liver dome measures 3.6 cm and remains unchanged from prior CT fr om 11/15/2018 (2:20). No other focal hepatic lesions identifie d. GALLBLADDER AND BILIARY TREE: Hydropic gallbladder ulises sures 13 cm in long axis. No gallbladder wall thickening is seen. No cholelithiasis. Minimal central intrahepatic biliary ductal dila tation. SPLEEN: No splenomegaly. Small splenule is seen anterior to the anterior margin of the spleen. PANCREAS: No ductal dilation or mass. ADRENAL GLANDS: No adrenal nodules. KIDNEYS: Symmetric enhancement. No hydro nephrosis, stones, or mass. PERITONEUM AND RETROPERITONEUM: No free air. Small vol ume perihepatic free fluid. Diffuse mesenteric congestion is present. LYMPH NODES: No enlarged lymph nodes by CT criteria. Subcentimeter periaortic and periportal lymph nodes ar e seen. GI TRACT: Nonspecific circumferential thickening of th e rectal wall (2:137) with mesorectal fat stranding and hazine ss. No discrete rectal mass identified. Normal appendix (4:59). Small bowel appear s unremarkable. Small hiatal hernia. PELVIS/BLADDER: The urinary bladder is distended witho ut wall thickening. Prostate is enlarged measuring 5.1 cm in transverse di mension at the level femoral heads. VESSELS: Patent main portal vein measures 1.5 cm. Hepa tic arterial anatomy appears conventional. Gastroesophageal varices with re canalized umbilical vein. BONES AND SOFT TISSUES: No suspicious ly tic or sclerotic bony lesions. Multilevel degenerative changes scattered throughout t he visualized axial skeleton with chronic wedging of multiple thoracolumba r junction and lower lumbar vertebra. Mild dependent body wal l anasarca. Procedure Note [facility], Radiant Results Inft User - 2019 11:01 AM BAG WASHER EXAM: CT ABDOMEN AND PELVIS WITH CONTRAST HISTORY: 44-year-old male with left lowe r quadrant pain, abdominal distention and hematochezia. Grade 1 gas troesophageal varices on endoscopy dated 05/29/2019. COMPARISON: CT abdomen and pelvis with c ontrast 06/02/2019. DOSE: 456mGycm TECHNIQUE AND FINDINGS: Contiguous axial imaging from the level of the lung bases through the proximal thighs was pe rformed after the administration of 120 cc of intravenous Omnipaque contrast . Coronal and sagittal reconstructions were obtained. Auto mA and/or iterative reconstruction were used to reduce radiation dose. FINDINGS: LOWER THORAX: Trace right and small left pleural effusion with bilateral lower lobe atelectasis. LIVER: Cirrhotic morphology with nodular surface contour. Liver parenchyma appears heterogeneous. Isoattenuating partially exophytic subca psular lesion in the liver dome measures 3.6 cm and remains unchanged fr om prior CT from 11/15/2018 (2:20). No other focal hepatic lesions identifie d. GALLBLADDER AND BILIARY TREE: Hydropic g allbladder measures 13 cm in long axis. No gallbladder wall thickening is seen. No cholelithiasis. Minimal central intrahepatic biliary ductal dila tation. SPLEEN: No splenomegaly. Small splenule is seen anterior to the anterior margin of the spleen. PANCREAS: No ductal dilation or mass. ADRENAL GLANDS: No adrenal nodules. KIDNEYS: Symmetric enhancement. No hydro nephrosis, stones, or mass. PERITONEUM AND RETROPERITONEUM: No free air. Small volume perihepatic free fluid. Diffuse mesenteric congestion is present. LYMPH NODES: No enlarged lymph nodes by CT criteria. Subcentimeter periaortic and periportal lymph nodes ar e seen. GI TRACT: Nonspecific circumferential th ickening of the rectal wall (2:137) with mesorectal fat stranding and hazine ss. No discrete rectal mass identified. Normal appendix (4:59). Smal l bowel appears unremarkable. Small hiatal hernia. PELVIS/BLADDER: The urinary bladder is d istended without wall thickening. Prostate is enlarged measuring 5.1 cm in transverse dimension at the level femoral heads. VESSELS: Patent main portal vein measure s 1.5 cm. Hepatic arterial anatomy appears conventional. Gastroesophageal v arices with recanalized umbilical vein. BONES AND SOFT TISSUES: No suspicious ly tic or sclerotic bony lesions. Multilevel degenerative changes scattere d throughout the visualized axial skeleton with chronic wedging of multipl e thoracolumbar junction and lower lumbar vertebra. Mild dependent body wal l anasarca. IMPRESSION 1. Circumferential thickening of the re ctum with mesorectal fat stranding. Findings may represent proctitis/colitis . No definite mass identified. Recommend direct visualization. 2. Cirrhotic morphology with sequela of portal hypertension including small volume ascites and portosystemic c ollaterals. 3. Unchanged hepatic dome subcapsular 3 .4 cm lesion concerning for HCC. Nonemergent evaluation with multiphasic CT or MRI exam liver protocol is recommended. 4. Gallbladder hydrops. No radiopaque c holelithiasis. 5. Trace right and small left pleural e ffusions. 6. Body wall anasarca. Preliminary Report Dictated by Resident: Saran Huitron MD., have reviewe d this study and agree with the above report. Performing Organization Address City/State/Zipcode Phone Number PACS/VR/DOSE EXTERNAL PROVIDER RECORDS (06/03/2019 12:01 AM BAG WASHER)Only the most recent of3 resultswithin the time period is included. Specimen Performing Organization Address [facility]/Zipcode Phone Number HIM EKG-12 LEAD (06/02/2019 8:24 PM BAG WASHER) Specimen Performing Organization Address [facility]/Zipcode Phone Number HST EGD (ENDO) (05/29/2019 7:59 AM BAG WASHER) Specimen Performing Organization Address [facility]/State/Zipcode Phone Number ENDO ENDOSCOPY PROCEDURE DOCUMENTATION (05/29/2019 12:01 AM BAG WASHER) Specimen Performing Organization Address [facility] Phone Number HIM DSU PRE-OP (05/27/2019 12:01 AM BAG WASHER) Specimen Performing Organization Address [facility]/State/Zipcode Phone Number HIM REFERRAL- REQUEST/RESPONSE (05/22/2019 12:01 AM BAG WASHER) Specimen Performing Organization Address [facility]/Zipcode Phone Number HIM EXTRA TUBE LT. GREEN (05/16/2019 1:43 PM BAG WASHER) Specimen Blood Performing Organization Address [facility]/State/Zipcode Phone Number [facility] CLIA: [id number], [address] [place] [address] SERVICES-[facility] IR PERIPHERALLY INSERTED DEVICE NON-TUNNELED PICC 5 OR OLDER (05/15/2019 3:23 PM BAG WASHER) Specimen Impressions Performed At Successful right basilic power injecta ble PICC placement . PACS/VR/DOSE Narrative Performed At PROCEDURE: PICC placement PACS/VR/DOSE HISTORY : Access needed, patient to unde rgo IV antibiotics course. MEDICATIONS: Local lidocaine. I reviewed the patient?s current medication list as noted in the nursing assessment, and the following actions were taken: None []. RADIATION DOSE: 3 mgray ATTENDING PRESENCE: As the attending r adiologist, I was present in the room during the entire procedure. TECHNIQUE: Signed, informed consent was obtained from the patient after discussing the risks, benefits, and alte rnatives of the procedure. Sisters protocol timeout was performed verifying cor rect patient, correct site, and correct procedure. Images were archived to PACS. Patency of the vein was documented with US. A cap and mask were donned, hand hygiene was performed and sterile g own and gloves were donned. The skin was prepped with 2% chlorhexidine and the solutio n was allowed to dry. A full body fenestrated drape was placed over the patient. The vein was accessed with a micropuncture needle usi ng ultrasound guidance, after infiltrating local anesthesia . A 4 Fren ch PICC was placed under fluoroscopy guidance into the central ve nous system, with its tip at the cavoatrial junction. The catheter was secured in place. The PICC is non-tunneled. No immediate complications were observed . The catheter was cut to 44 cm. Findings: Ultrasound demonstrates patent and compr essible right basilic vein. Final image demonstrates PICC placement with tip at the cavoatrial junction. Procedure Note [facility], Radiant Results Inft User - 2019 10:33 AM BAG WASHER PROCEDURE: PICC placement HISTORY : Access needed, patient to unde rgo IV antibiotics course. MEDICATIONS: Local lidocaine. I reviewed the patient?s current medication list as noted in the nursing assessment, and the following actions were taken: None []. RADIATION DOSE: 3 mgray ATTENDING PRESENCE: As the attending ra diologist, I was present in the room during the entire procedure. TECHNIQUE: Signed, informed consent was obtained from the patient after discussing the risks, benefits, and alte rnatives of the procedure. Sisters protocol timeout was performed verifying correct patient, correct site, and correct procedure. Images were archived to PACS. Patency of the vein was documented with US. A cap and mask were donned, hand hygiene was performed and sterile g own and gloves were donned. The skin was prepped with 2% chlorhexidine a nd the solution was allowed to dry. A full body fenestrated drape was placed over the patient. The vein was accessed with a micropuncture needle usi ng ultrasound guidance, after infiltrating local anesthesia . A 4 Fren ch PICC was placed under fluoroscopy guidance into the central ve nous system, with its tip at the cavoatrial junction. The catheter was s ecured in place. The PICC is non-tunneled. No immediate complications were observed . The catheter was cut to 44 cm. Findings: Ultrasound demonstrates patent and compr essible right basilic vein. Final image demonstrates PICC placement with tip at the cavoatrial junction. IMPRESSION Successful right basilic power injectab le PICC placement . Performing Organization Address [facility] Phone Number PACS/VR/DOSE XR CHEST 2 VW (05/14/2019 12:44 PM BAG WASHER) Specimen Impressions Performed At .IMPRESSION: PACS/VR/DOSE 1. Blunting of the left costophrenic ang le probably represents a combination of atelectasis and pleural effusion. Narrative Performed At CHEST 2 VIEWS: PACS/VR/DOSE HISTORY:Cough TECHNIQUE:: PA and lateral views of th e chest are obtained. COMPARISON: 11/16/2018 FINDINGS: Slight prominence of the vascularity is note d likely related to poor inspiratory effort. Blunting of the left costophr enic angle is seen. Heart size is normal. Procedure Note [facility], Radiant Results Inft User - 2019 12:48 PM BAG WASHER CHEST 2 VIEWS: HISTORY:Cough TECHNIQUE:: PA and lateral views of the chest are obtained. COMPARISON: 11/16/2018 FINDINGS: Slight prominence of the vascu larity is noted likely related to poor inspiratory effort. Blunting of the left costophrenic angle is seen. Heart size is normal. IMPRESSION .IMPRESSION: 1. Blunting of the left costophrenic ang le probably represents a combination of atelectasis and pleural e ffusion. Performing Organization Address [facility]/Zipcode Phone Number PACS/VR/DOSE EXTRA TUBE SST (05/14/2019 9:30 AM BAG WASHER) Specimen Blood Performing Organization Address [facility] [place] Phone Number [facility] CLIA: [id number], [address] [place] [address] SERVICES-[facility] ADC / LCC - DRUG SCREEN TRIAGE (05/12/2019 1:57 PM BAG WASHER) BENZO U Presumptive Negative [facility] Positive (A) HOSPITAL LAB[facility]ATORY KIANA U Negative Negative [facility] AMPHET Negative Negative [facility] THC Negative Negative [facility] METHADONE Negative Negative [facility] Meth U Negative [facility] OPIATES Negative Negative [facility] Cocaine Metabolite Negative Negative [facility] PROPOXY Negative Negative [facility] Tric U Negative Negative [facility] PCP Negative Negative [facility] OXYCOD Negative Negative [facility] Specimen Urine - URINE, CLEAN CATCH Narrative Performed At Urine Drug Cutoff Ranges [facility] Benzodiazepines: 150 ng/mL Barbiturates: 200 ng/mL [...] testing). Performing Organization Address City/State/Zipcode Phone Number [facility] CLIA: [id number], [address] [place], [place] [address] AGREEMENTS AUTHORIZATIONS AND IRREVOCABLE ASSIGNMENTS (FORM 2001) (05/12/2019 12:01 AM BAG WASHER) Specimen Performing Organization Address City/State/Zipcode Phone Number [facility] US GALL BLADDER (05/11/2019 11:36 PM BAG WASHER) Specimen Impressions Performed At PACS/VR/DOSE 1. Cirrhosis with ascites. 2. Distended gallbladder without convincing sonographi c evidence of acute cholecystitis. 3. Dilated common bile duct measuring 8. 7 mm. If there is high clinical concern for biliary obstruction MRCP can be performed. RL: [id number] AFC: [id number] End of report 1 1:55 PM Narrative Performed At ORDERING CLINICIAN: PRIYANKA GUERRA PACS/VR/DOSE TECHNIQUE: Sonographic evaluation of the right upper quadrant was performed. INDICATION: Abdominal pain COMPARISON: None DISCUSSION: The liver is heterogeneous with lobular contour sugges ting cirrhosis. There is moderate ascites. The gallbladder is distended. No stones are identified. There is no definite wall thickening. The common bile duct is dila kathleen measuring 8.7 mm. The visualized portions of the pancreas are unremarkable. Procedure Note [facility], Radiant Results Inft User - 2019 11:56 PM BAG WASHER ORDERING CLINICIAN: PRIYANKA GUERRA TECHNIQUE: Sonographic evaluation of the right upper quadrant was performed. INDICATION: Abdominal pain COMPARISON: None DISCUSSION: The liver is heterogeneous with lobular contour suggesting cirrhosis. There is moderate ascites. The gallbladder is distended. No stones are identified. There is no definite wall thickening. The common salomon e duct is dilated measuring 8.7 mm. The visualized portions of the pancreas are unremarkable. IMPRESSION 1. Cirrhosis with ascites. 2. Distended gallbladder without convinc ing sonographic evidence of acute cholecystitis. 3. Dilated common bile duct measuring 8. 7 mm. If there is high clinical concern for biliary obstruction MRCP can be performed. RL: [id number] AFC: [id number] End of report Performing Organization Address City/State/Zipcode Phone Number PACS/VR/DOSE GRAM NEGATIVE BLOOD PATHOGENS DNA PROBE-ANAEROBIC (05/11/2019 8:27 PM BAG WASHER) Pathologist Sig nature Klebsiella pneumoniae Positive (A) Negative [facility] SERVICES Specimen Blood - VENOUS Narrative Performed At See blood culture result for additional information. [facility] Testing included eight identification and six resistan ce marker targets. Performing Organization Address City/State/Zipcode Phone Number [facility] CLIA: [id number], [address] [place] [address] 555 [facility] BLOOD CULTURE WORKUP (05/11/2019 8:27 PM BAG WASHER) Blood Culture Klebsiella [facility] Workup pneumoniae SERVICES Gram stain Gram negative [facility] bacilliComment: HOSPITAL LABORATORY Anaerobic and aerobic bottles Specimen Blood - VENOUS Organism Antibiotic Method Susceptibility Klebsiella Amoxacillin/Clavulanic SUSCEPTIBILITY TESTING <= 2: Susceptible pneumoniae acid Klebsiella Ampicillin SUSCEPTIBILITY TESTING Resistant pneumoniae Klebsiella Ampicillin/Sulbactam SUSCEPTIBILITY TESTING 4: S usceptible pneumoniae Klebsiella Cefazolin SUSCEPTIBILITY TESTING <=4: Susc eptible pneumoniae Klebsiella Cefotaxime SUSCEPTIBILITY TESTING <=1: Susc eptible pneumoniae Klebsiella Ertapenem SUSCEPTIBILITY TESTING <=0.5: Chavez sceptible pneumoniae Klebsiella Gentamicin SUSCEPTIBILITY TESTING <=1: Susc eptible pneumoniae Klebsiella Levofloxacin SUSCEPTIBILITY TESTING <=0.12: S usceptible pneumoniae Klebsiella Piperacillin/Tazobacta SUSCEPTIBILITY TESTING <= 4: Susceptible pneumoniae m Klebsiella Trimethoprim/Sulfameth SUSCEPTIBILITY TESTING <= 20: Susceptible pneumoniae oxazole Performing Organization Address City/State/Zipcode Phone Number [facility] CLIA: [id number], [address] [place], [place] [address] [facility] CLIA: [id number], [address] [place], [place] [address] from Last 3 Months Insurance Payer Benefit Plan / Subscriber ID Effective Phone Address T ype Group Dates [facility] BCBS BLUE [id number] 2019-Pre [phone] O ELIS X HMO ADVANTAGE HMO sent [phone] [place] [address] MEGAN GUZMAN [id number] 2019-Pre Beha vioral BEHAVIORAL BEHAVIORAL sent [facility]
--- OUTSIDE RECORDS SUMMARY | 2019-08-09 02:20 | XMS REPORT | Summary of Care ---
:1975 Author Organization [facility] Address [address] [place] [address] Care Team Providers Name Role Phone Asim Sohail Primary Care Provider Reason for Visit Reason Comments Appointment Encounter Details Date Type Department Care Team Description 08/08/2019 Telephone [facility] Transplant- Gladis Wolf MD Appointment [facility] [address] [place] [address] [place] [address] [place] [address] [place], [place] [phone] Allergies No Known Allergiesdocumented as of this encounter (statuses as of 08/08/2019) Medications Medication Sig Dispensed Refills Start Date End Date Status spironolactone 100 mg Take 1 tablet by 30 tablet 12 01/22/2019 Active tabletIndications: mouth daily. Chronic liver failure without hepatic coma Additional information Patient taking differently: 50 mg Oral BID, Reported on 04/30/2019 4:41 PM rifAXIMin (XIFAXAN) 550 Take 550 mg by 0 Active mg tablet mouth 2 (two) times daily. jghredkf-qnpk-VJ-calcium- Take 1 tablet by 0 Active mins [...] as of this encounter (statuses as of 08/08/2019) Active Problems Problem Noted Date Altered mental [...] as of this encounter (statuses as of 08/08/2019) Immunizations Name Administration Dates Next Due HEP [...] Treatment Date Type Specialty Care Team Description 08/09/2019 Telemedicine Visit Gastroenterology Adelso Couch MD [address] [place] [address] [phone] 08/21/2019 Component Prep Operator Visit Phlebotomy Kate Padgett Lab Main 08/21/2019 Appointment Radiology Raquel Couch MD [address] [place] [address] [phone] 08/21/2019 Appointment Radiology Raquel Couch MD [address] [place] [address] [phone] 08/21/2019 Appointment Radiology Raquel Couch MD [address] [place] [address] [phone] 08/21/2019 Appointment Radiology Raquel Couch MD [address] [place] [address] [phone] 08/28/2019 Appointment Cardiac Developing Machine Tender Yandel Jaeger MD [address] [place] [address] [place] [address] [phone] Provider, Shell Cardiac 2, Clc Cardiac Proc [...] Effective Phone Address T ype Group Dates [facility] BCBS BLUE [id number] 2019-Pre [phone] O ELIS X HMO ADVANTAGE HMO sent [phone] [place] [address] MEGAN GUZMAN [id number] 2019-Pre Beha vioral BEHAVIORAL BEHAVIORAL sent [facility] documented as of this encounter
--- OUTSIDE RECORDS SUMMARY | 2019-08-09 02:20 | XMS REPORT | Summary of Care ---
:1975 Author Organization [facility] Address [address] [place] [address] Care Team Providers Name Role Phone Asim Sohail Primary Care Provider Reason for Visit Reason Comments Other lab orders Encounter Details Date Type Department Care Team Description 08/07/2019 Case Management [facility] Danni Couch (lab o rders) Transplant[place] [facility] [address] [address] [phone] Allergies No Known Allergiesdocumented as of this encounter (statuses as of 08/07/2019) Medications Medication Sig Dispensed Refills Start Date End Date Status spironolactone 100 mg Take 1 tablet by 30 tablet 12 01/22/2019 Active tabletIndications: mouth daily. Chronic liver failure without hepatic coma Additional information Patient taking differently: 50 mg Oral BID, Reported on 04/30/2019 4:41 PM rifAXIMin (XIFAXAN) 550 Take 550 mg by 0 Active mg tablet mouth 2 (two) times daily. bpnqfmoc-gjzc-FN-calcium- Take 1 tablet by 0 Active mins [...] as of this encounter (statuses as of 08/07/2019) Active Problems Problem Noted Date Altered mental [...] as of this encounter (statuses as of 08/07/2019) Immunizations Name Administration Dates Next Due HEP [...] Date Type Specialty Care Team Description 08/21/2019 Anaesthetic Technician Visit Phlebotomy Pob, Adc Lab Main 08/21/2019 Appointment Radiology Raquel Couch MD [address] [place] [address] [phone] 08/21/2019 [place] [address] [place] [address] [phone] 08/21/2019 Appointment Radiology Raquel Couch MD [address] [place] [address] [phone] 08/21/2019 Appointment Radiology Raquel Couch MD [address] [place], [place] [phone] 08/28/2019 Appointment Cardiac Director Of Extension Work Yandel Jaeger MD [address] [place] [address] [address] [place], [place] [address] Provider, Clc Cardiac 2, Clc Cardiac Proc Room Name Type Priority Associated Diagnoses [facility] Routine Pre-transplant Expect ed: 08/07/2019, [id number] evaluation for chronic Expir es: 08/06/2020 liver disease BASIC METABOLIC PANEL LAB Routine Pre-transplant 1 Oc currences starting (NA, K, CL, CO2, evaluation for chronic 0 08/07/2019 until GLUCOSE, BUN, liver disease 11/06/2019 CREATININE, CA) CBC WITH DIFF LAB Routine Pre-transplant 1 Occurrence s starting evaluation for chronic 08/06 until liver disease 11/06/2019 PROTHROMBIN TIME / INR LAB Routine Pre-transplant 1 O ccurrences starting evaluation for chronic 08/06 until liver disease 11/06/2019 PROTHROMBIN TIME / INR LAB Routine Pre-transplant 1 O ccurrences starting evaluation for chronic 08/06 until liver disease 11/06/2019 Health Maintenance Due Date Last Done Comments DTaP,Tdap,and Td Vaccines (1 - Tdap) 1986 08/04/2019 PNEUMOCOCCAL 0-64 YEARS COMBINED SERIES (2 01/16/201911/21 of 3 - PPSV23) INFLUENZA VACCINE Completed 12/23/2018, 01/22/2018 documented as of this encounter Results Not on filedocumented in this encounter Visit Diagnoses Diagnosis Pre-transplant evaluation for chronic li trever disease - Primary Other specified pre-operative examinatio n documented in this encounter Insurance Payer Benefit Plan / Subscriber ID Effective Phone Address T e Group Dates [facility] [id number] 2019-Pre [phone] O ELIS X HMO ADVANTAGE HMO sent [phone] [place] [address] MEGAN GUZMAN [id number] 2019-Pre Beha vioral BEHAVIORAL BEHAVIORAL sent [facility] documented as of this encounter
--- OUTSIDE RECORDS SUMMARY | 2019-08-09 02:20 | XMS REPORT | Summary of Care ---
:1975 Author Organization [facility] Address [address] [place] [address] Care Team Providers Name Role Phone Asim Sohail Primary Care Provider Encounter Details Date Type Department Care Team Description 08/08/2019 Committee Review [facility] Gladis Couch, [facility] [facility] [address] [place] [address] [place] [address] So [facility], [place], [place] [phone] Allergies No Known Allergiesdocumented as of this [...] mg tablet mouth 2 (two) times daily. mphlhdpq-fwdu-SD-calcium- Take 1 tablet by 0 Active mins [...] Date Type Specialty Care Team Description 08/21/2019 Associate Material Handler Visit Phlebotomy Pob, Adc Lab Main 08/21/2019 Appointment Radiology Raquel Couch MD [address] [place] [address] 08/21/2019 [place] [address] [place] [address] [phone] 08/21/2019 Appointment Radiology Raquel Couch MD [address] [place] [address] [phone] 08/21/2019 Appointment Radiology Raquel Couch MD [address] [place] [address] [phone] 08/28/2019 Appointment Cardiac Credit Verification Clerk Yandel Jaeger MD [address] [place] [address] [address] [place] [address] [phone] Provider, Shell Cardiac 2, Clc Cardiac Proc [...] Effective Phone Address T ype Group Dates BCBS [facility] BCBS BLUE [id number] 2019-Pre [phone] O ELIS X HMO ADVANTAGE HMO sent [phone] [place] [address] MEGAN GUZMAN [id number] 2019-Pre Beha vioral BEHAVIORAL BEHAVIORAL sent [facility] documented as of this encounter
--- OUTSIDE RECORDS SUMMARY | 2019-08-09 02:20 | XMS REPORT | Summary of Care ---
:1975 Author Organization [facility] Address [address] [place] [address] Care Team Providers Name Role Phone Asim Sohail Primary Care Provider Reason for Visit Reason Comments Orders Encounter Details Date Type Department Care Team Description 08/08/2019 Case Management [facility] Gladis Couch, Lj [facility] [address] [place] [address] [place] [address] [place], [place] [address] [phone] Allergies No Known Allergiesdocumented as of this [...] mg tablet mouth 2 (two) times daily. mytjjedo-orfx-TT-calcium- Take 1 tablet by 0 Active mins [...] Date Type Specialty Care Team Description 08/21/2019 Photographic Supervisor Visit Phlebotomy Pob, Adc Lab Main 08/21/2019 Appointment Radiology Raquel Couch MD [address] [place] [address] [phone] 08/21/2019 [place] [address] [place] [address] [phone] 08/21/2019 Appointment Radiology Raquel Couch MD [address] [place] [address] [phone] 08/21/2019 Appointment Radiology Raquel Couch MD [address] [place] [address] [phone] 08/28/2019 Appointment Cardiac Restrike Hammer Operator Yandel Jaeger MD [address] [place] [address] [place] [address] [phone] Provider, Clc Cardiac 2, Clc Cardiac Proc Room Name Type Priority Associated Diagnoses Order S chedule HEPATIC FUNCTION PANEL LAB Routine Pre-transplant 1 O ccurrences starting (83967) (ALB,T.PRO,BILI evaluation for ch ronic 08/08/2019 until T,BU/BC,ALT,AST,ALK PHOS) liver disease 0 11/07/2019 URINE DRUG (LCMSMS) - LAB Routine Pre-transplant Expe cted: 08/08/2019, ETHANOL METABOLITE PANEL evaluation for c hronic Expires: 12/08/2019 liver disease URINE DRUG (LCMSMS) - LAB Routine Pre-transplant Expe cted: 08/08/2019, COMPREHENSIVE DRUG PANEL evaluation for c hronic Expires: 12/08/2019 liver disease Health Maintenance Due Date Last [...] Address T ype Group Dates BCBS OF [facility] BCBS BLUE [id number] 2019-Pre [phone] O ELIS X HMO ADVANTAGE HMO sent [phone] [place] [address] MEGAN GUZMAN [id number] 2019-Pre Beha vioral BEHAVIORAL BEHAVIORAL sent [facility] HEALTH documented as of this encounter
[2019-08-09 02:29] LABS: Absolute Lymphocytes (CBC) 0.7 K/uL (0.7-4.9); Basophils % 1.4 % (0-1.3); Hematocrit 25.1 % (39.6-49.0); Lymphocytes % 17.4 % (15.3-44.8); MPV 7.6 fL (7.6-11.3); Protime INR 2.19; RBC Red Blood Cell Count 2.45 M/uL (4.33-5.43)
[2019-08-09 02:50] LABS: ALT/SGPT 55 U/L (12-78); AST/SGOT 76 U/L (15-37); Alkaline Phosphatase 239 U/L (45-117); BUN Blood Urea Nitrogen 12 mg/dL (7-18); Bicarbonate 24 mmol/L (21-32); Bilirubin Direct 2.2 mg/dL (0-0.2); Bilirubin Total 4.4 mg/dL (0.2-1.0); Creatine Phosphokinase 164 U/L (39-308); Glucose Level 185 mg/dL (74-106); Lipase 82 U/L (73-393); Magnesium 1.8 mg/dL (1.8-2.4); Potassium 3.8 mmol/L (3.5-5.1); Protein, Total 7.6 g/dL (6.4-8.2); Sodium Level 134 mmol/L (136-145); Troponin (Emerg Dept Use Only) 0.03 ng/mL (0.0-0.045)
[2019-08-09 03:12] LABS: Anisocytosis 2+; Blood Morphology Comment NOTED (NOT SEEN); Hypochromasia 2+; Macrocytosis 1+; Platelet Estimate DECR; Target Cells 2+
[2019-08-09 04:10] LABS: Urine Blood TRACE (NEG); Urine Glucose TRACE (NEG); Urine Protein NEGATIVE (NEG); Urine pH 7.5 (5.0-7.0)
[2019-08-09 04:10] LABS: Barbiturates NEGATIVE (NEGATIVE); Benzodiazepines POSITIVE (NEGATIVE); Cocaine NEGATIVE (NEGATIVE); METHAMPHETAM NEGATIVE (NEGATIVE); Methadone NEGATIVE (NEGATIVE); Opiates NEGATIVE (NEGATIVE); Phencyclidine NEGATIVE (NEGATIVE); THC Cannibis NEGATIVE (NEGATIVE)
[2019-08-09 04:13] LABS: Urine Bacteria <20 /HPF (NONE SEEN); Urine Culture Reflex Order NOT NEEDED; Urine RBC <5 /HPF (NONE SEEN)
--- NOTE | 2019-08-09 04:25 | EDPHYS ---
Physician Documentation [facility] Name: Stuart Glass Age: 44 yrs Sex: Male : 1975 Arrival Date: 08/09/2019 Time: 01:24 Bed 5 Private MD: Siva Bustamante HPI: 08/08 01:55 This 44 yrs old Male presents to ER via Wheelchair with complaints of Cramp In cp Feet. 01:55 The patient presents with pain, that is acute. The complaints affect the right foot and cp left foot and left lower leg and right lower leg. 01:55 Context: the patient can fully bear weight, the patient is able to ambulate, reportedly cp walked more than usual today. Onset: The symptoms/episode began/occurred today. Associated signs and symptoms: Pertinent positives: weakness, Pertinent negatives swelling, warmth. Historical: - Allergies: 01:36 No Known Allergies; sg - PMHx: 01:36 Cirrhosis; liver cancer; neuropathy; tumors on liver; sg - Immunization history:: Adult Immunizations not up to date. - Social history:: Smoking status: unknown. ROS: 01:58 Eyes: Negative for injury, pain, redness, and discharge. cp 01:58 Constitutional: Negative for body aches, chills, fever, poor PO intake. 01:58 ENT: Negative for drainage from ear(s), ear pain, sore throat, difficulty swallowing, difficulty handling secretions. 01:58 Cardiovascular: Negative for chest pain. 01:58 Respiratory: Negative for cough, shortness of breath, wheezing. 01:58 Abdomen/GI: Positive for abdominal pain. 01:58 : Negative for urinary symptoms. 01:58 Neuro: Positive for weakness, Negative for altered mental status, dizziness, headache, syncope. 01:58 All other systems are negative. Exam: 02:05 Constitutional: The patient appears in no acute distress, alert, awake, cp non-diaphoretic, non-toxic, well developed, well nourished. 02:05 Head/Face: Normocephalic, atraumatic. cp 02:05 Eyes: Periorbital structures: appear normal, Conjunctiva: normal, no exudate, no injection, Lids and lashes: appear normal, bilaterally. 02:05 ENT: External ear(s): are unremarkable, Nose: is normal, Mouth: Lips: moist, Oral mucosa: pink and intact, moist, Posterior pharynx: is normal, airway is patent, no erythema, no exudate. 02:05 Chest/axilla: Inspection: normal, Palpation: is normal, no crepitus, no tenderness. 02:05 Cardiovascular: Rate: normal, Rhythm: regular, Edema: is not appreciated, JVD: is not appreciated. 02:05 Respiratory: the patient does not display signs of respiratory distress, Respirations: normal, no use of accessory muscles, no retractions, labored breathing, is not present, Breath sounds: are clear throughout, no decreased breath sounds, no stridor, no wheezing. 02:05 Abdomen/GI: Inspection: abdomen appears normal, Palpation: soft, in all quadrants, mild abdominal tenderness, in all quadrants. 02:05 Back: pain, is absent. 02:05 Skin: no rash present. 02:05 Neuro: Orientation: to person, place \T\ time. Mentation: able to follow commands, sleepy, Motor: moves all fours, strength is normal, Sensation: is normal. 02:05 Musculoskeletal/extremity: Extremities: grossly normal except: noted in the right foot cp and left foot and right lower leg and left lower leg: pain, tenderness, Pulses: noted to be 2+ in the right dorsalis pedis artery and left dorsalis pedis artery, Sensation intact. 02:30 ECG was reviewed by the Attending Physician. Vital Signs: 01:47 Pulse 79; Resp 18; Temp 98.1(TE); Pulse Ox 100% on R/A; Pain 6/10; sg 03:48 BP 127 / 71; Pulse 79; Resp 18; Pulse Ox 99% on R/A; ea 04:33 BP 114 / 71; Pulse 80; Resp 18; Pulse Ox 98% on R/A; ea MDM: 01:34 Patient medically screened. allie 08/08 01:58 Order name: Basic Metabolic Panel; Complete Time: 03:54 cp 08/08 01:58 Order name: CBC with Diff; Complete Time: 03:54 cp 08/08 01:58 Order name: LFT's; Complete Time: 03:54 cp 08/08 01:58 Order name: Magnesium; Complete Time: 03:54 cp 08/08 01:58 Order name: PT-INR; Complete Time: 02:38 cp 08/08 02:38 Interpretation: Abnormal: PT 25.5. cp 08/08 01:58 Order name: Troponin (emerg Dept Use Only); Complete Time: 03:54 cp 08/08 01:58 Order name: CPK; Complete Time: 03:54 cp 08/08 02:27 Order name: ETOH Level; Complete Time: 03:54 cp 08/08 02:27 Order name: UDS; Complete Time: 04:23 cp 08/08 02:27 Order name: Urine Microscopic Only; Complete Time: 04:23 cp 08/08 02:31 Order name: AMMONIA; Complete Time: 04:23 cp 08/08 02:40 Order name: Lipase; Complete Time: 03:54 EDMS 08/08 02:41 Order name: Manual Differential; Complete Time: 03:54 EDMS 08/08 01:58 Order name: EKG; Complete Time: 01:58 cp 08/08 01:58 Order name: Cardiac monitoring; Complete Time: 02:22 cp 08/08 01:58 Order name: EKG - Nurse/Tech; Complete Time: 02:22 cp 08/08 01:58 Order name: IV Saline Lock; Complete Time: 02:35 cp 08/08 01:58 Order name: Labs collected and sent; Complete Time: 02:35 cp 08/08 01:58 Order name: O2 Per Protocol; Complete Time: 02:36 cp 08/08 01:58 Order name: O2 Sat Monitoring; Complete Time: 02:36 cp 08/08 02:27 Order name: Urine Dipstick-Ancillary (obtain specimen); Complete Time: 03:44 cp 08/08 03:40 Order name: Urine Dipstick--Ancillary (enter results); Complete Time: 04:23 mw2 EC:30 Rate is 77 beats/min. Rhythm is regular. [place] interval is normal. QRS interval is normal. cp QT interval is normal. Interpreted by me. Reviewed by me. Administered Medications: 02:15 Drug: NS 0.9% 1000 ml Route: IV; Rate: 1000 ml/hr; Site: right antecubital; ea 04:34 Follow up: Response: No adverse reaction; IV Intake: 1000ml ea 04:34 Follow up: Response: No adverse reaction ea 04:34 Follow up: IV Status: Completed infusion; IV Intake: 1000ml ea 04:03 CANCELLED (Duplicate Order): Lactulose 30 grams 45 ml PO once allie 04:23 Drug: Lactulose 60 grams Volume: 45 ml; Route: PO; ea 04:33 Follow up: Response: No adverse reaction ea Disposition: 11:11 Co-signature as Attending Physician, Siva Serra MD I agree with the assessment and [facility] plan of care. Disposition: 08/09/19 04:24 Discharged to Home. Impression: Alcoholic cirrhosis of liver, Encephalopathy, unspecified, Coagulation defect, unspecified, Anemia, unspecified. - Condition is Stable. - Discharge Instructions: Anemia, Nonspecific, Hepatic Encephalopathy. - Prescriptions for Lactulose 10 gram/15 mL Oral Solution - take 30 milliliter by ORAL route once daily; 300 milliliter. - Medication Reconciliation Form, Thank You Letter, Antibiotic Education, Prescription Opioid Use form. - Follow up: Private Physician; When: 1 - 2 days; Reason: Recheck today's complaints, Continuance of care, Re-evaluation by your physician. - Problem is new. - Symptoms have improved. Signatures: Dispatcher [employer] Frankie Rees RN RN sg Anderson, Corey, MD MD cha Page, Corey, PA PA cp Antunez, Elena, RN RN ea Corrections: (The following items were deleted from the chart) 02:40 02:39 LIPASE+C.LAB.BRZ ordered. [facility] 04:03 04:01 Lactulose 30 grams 45 ml PO once ordered. [facility] 04:45 04:24 08/09/2019 04:24 Discharged to Home. Impression: Alcoholic cirrhosis of liver; ea Encephalopathy, unspecified; Coagulation defect, unspecified; Anemia, unspecified. Condition is Stable. Discharge Instructions: Anemia, Nonspecific, Hepatic Encephalopathy. Prescriptions for Lactulose 10 gram/15 mL Oral Solution - take 30 milliliter by ORAL route once daily; 300 milliliter. and Forms are Medication Reconciliation Form, Thank You Letter, Antibiotic Education, Prescription Opioid Use. Follow up: Private Physician; When: 1 - 2 days; Reason: Recheck today's complaints, Continuance of care, Re-evaluation by your physician. Problem is new. Symptoms have improved. allie
--- NOTE | 2019-08-09 04:25 | ER ---
Nurse's Notes [facility] Name: Stuart Glass Age: 44 yrs Sex: Male : 1975 Arrival Date: 08/09/2019 Time: 01:24 Bed 5 Private MD: Diagnosis: Alcoholic cirrhosis of liver;Encephalopathy, unspecified;Coagulation defect, unspecified;Anemia, unspecified Presentation: 08/08 01:33 Chief complaint: Patient states: Weakness and muscle cramping, cramping in bilateral sg legs and feet. Reports vomiting, general weakness, denies SOB/FEVER/COUGH/DIARRHEA at this time. states currently receiving treatment for liver cancer. Coronavirus screen: Proceed with normal triage. Ebola Screen: Patient negative for fever greater than or equal to 101.5 degrees Fahrenheit, and additional compatible Ebola Virus Disease symptoms Patient denies exposure to infectious person. Patient denies travel to an Ebola-affected area in the 21 days before illness onset. No symptoms or risks identified at this time. Initial Sepsis Screen:. Risk Assessment: Do you want to hurt yourself or someone else? Patient reports no desire to harm self or others. Onset of symptoms was August 08, 2019. 01:33 Method Of Arrival: Wheelchair sg 01:33 Acuity: [place] 3 sg Historical: - Allergies: 01:36 No Known Allergies; sg - PMHx: 01:36 Cirrhosis; liver cancer; neuropathy; tumors on liver; sg - Immunization history:: Adult Immunizations not up to date. - Social history:: Smoking status: unknown. Screenin:37 Abuse screen: Denies threats or abuse. Nutritional screening: No deficits noted. ea Tuberculosis screening: No symptoms or risk factors identified. Fall Risk IV access (20 points). Assessment: 01:36 Reassessment: pt reports needing to urinate, assisted to the restroom at this time. sg 02:10 General: Appears in no apparent distress. Behavior is calm, cooperative, appropriate ea for age. Pain: Complains of pain in right foot and left foot. Neuro: Level of Consciousness is awake, alert, obeys commands, Oriented to person, place, time, situation. Respiratory: Airway is patent Respiratory effort is even, unlabored, Respiratory pattern is regular, symmetrical. Derm: Skin is pink, warm \T\ dry. 03:47 Reassessment: Pt resting with eyes closed, respirations even and unlabored. Chest ea expansions even and symmetrical. No s/s of pain or discomfort at this time. Vital Signs: 01:47 Pulse 79; Resp 18; Temp 98.1(TE); Pulse Ox 100% on R/A; Pain 6/10; sg 03:48 BP 127 / 71; Pulse 79; Resp 18; Pulse Ox 99% on R/A; ea 04:33 BP 114 / 71; Pulse 80; Resp 18; Pulse Ox 98% on R/A; ea ED Course: 01:24 Patient arrived in ED. cl3 01:25 Siva Lim PA is PHCP. cp 01:25 Siva Serra MD is Attending Physician. cp 01:35 Triage completed. sg 01:35 Arm band placed on. sg 01:49 Kayla Oneill, RN is Primary Nurse. ea 02:10 Inserted saline lock: 20 gauge in right antecubital area, using aseptic technique. ea Blood collected. 02:37 Patient has correct armband on for positive identification. Bed in low position. Call ea light in reach. Side rails up X2. 03:44 UDS Sent. oe 03:44 AMMONIA Sent. oe 04:32 No provider procedures requiring assistance completed. IV discontinued, intact, ea bleeding controlled, No redness/swelling at site. Pressure dressing applied. Administered Medications: 02:15 Drug: NS 0.9% 1000 ml Route: IV; Rate: 1000 ml/hr; Site: right antecubital; ea 04:34 Follow up: Response: No adverse reaction; IV Intake: 1000ml ea 04:34 Follow up: Response: No adverse reaction ea 04:34 Follow up: IV Status: Completed infusion; IV Intake: 1000ml ea 04:03 CANCELLED (Duplicate Order): Lactulose 30 grams 45 ml PO once allie 04:23 Drug: Lactulose 60 grams Volume: 45 ml; Route: PO; ea 04:33 Follow up: Response: No adverse reaction ea Intake: 04:34 IV: 1000ml; Total: 1000ml. ea 04:34 IV: 1000ml; Total: 2000ml. ea Outcome: 04:24 Discharge ordered by . allie 04:32 Discharged to home via wheelchair. ea 04:32 Condition: stable 04:32 Discharge instructions given to patient, Instructed on discharge instructions, follow up and referral plans. Demonstrated understanding of instructions, follow-up care. 04:45 Patient left the ED. piper Signatures: Frankie Vo RN RN Siva Das MD MD cha Page, Corey, PA PA cp Espinosa, Orlando oe Antunez, Elena, RN RN Mikayla Cedeno cl3 Corrections: (The following items were deleted from the chart) 01:58 01:33 Chief complaint: Patient states: Weakness and muscle cramping, cramping in sg bilateral feet. Reports vomiting, general weakness, denies SOB/FEVER/COUGH/DIARRHEA at this time sg
[2019-08-09] MEDS ORDERED: LACTULOSE 20 GM/30 ML UCUP ONE (04:27)
[2019-08-09 05:05] VITALS: TEMP 98.1
[2019-08-09 05:07] VITALS: BP 114/71; O2SAT 98
--- NOTE | 2019-08-09 12:03 | EKG ---
Test Date: 2019-08-09 Test Time: 02:17:11 Custom Van Converter: SHANEL MEASUREMENT RESULTS: Intervals: Rate: 77 MT: 132 QRSD: 82 QT: 408 QTc: 461 [place]: P: 69 MT: 132 QRS: 80 T: 18 INTERPRETIVE STATEMENTS: Normal sinus rhythm Normal ECG Compared to ECG 07/28/2019 08:02:40 Sinus tachycardia no longer present Electronically Signed On 08-09-19 12:02:45 CDT by Alonzo Duffy
== END 2019-08-09 04:45 | disposition home or self-care (01) ==
LOC: ER 01:22
DX: K70.30 Alcoholic cirrhosis of liver without ascites (principal); G93.40 Encephalopathy, unspecified; D68.9 Coagulation defect, unspecified; D64.9 Anemia, unspecified; Z85.05 Personal history of malignant neoplasm of liver
CPT/HCPCS: 96361; 93005; 85025; 80048; 36415; 80320; 82140; 83735; 82550; 85610; 80076; 80307 ×8; 84484; 83690; 96360; 99283; J7030; 81003; 81015

== ENCOUNTER 2019-08-10 17:03 | Emergency (ER) | payer BC ==
--- OUTSIDE RECORDS SUMMARY | 2019-08-10 17:14 | XMS REPORT ---
:1975 Author Organization [facility] t Address [address] [place] [address] Care Team Providers Name Role Phone YC CERVANTESKorey Unavailable Unavailable MERCEDES ELENA Unavailable Unavailable Problems [...] 30 minutes before morning meal Carisoprodo Carisoprodo 2019- No Yuniel (schedu le l l 05-07 Dailey iv drug) 00:00 take one :00 -1 tablet(s) by mouth every six hours as needed for spasm. Encounters Start End Encounter Admission Attending Care Care Encounter Date/Time Date/Time Type Type Clinicians Facility Department ID 2019-07-30 2019-07-30 [facility] [id number] 15:00:00 15:00:00 [employer] [facility] 2019-07-30 2019-07-30 [facility] [id number] 10:45:00 10:45:00 [place] [employer] [facility] 2019-07-25 2019-07-25 [facility] [id number] 15:27:00 15:27:00 [place] [employer] [facility] 2019-07-10 2019-07-10 [facility] [id number] 10:58:00 10:58:00 [place] [employer] [facility] 2019-07-04 2019-07-04 [facility] [id number] 15:20:00 15:20:00 [place] [employer] [facility] 2019-06-26 2019-06-26 [facility] [id number] 10:03:00 10:03:00 [place] [employer] [facility] 2019-06-13 2019-06-13 [facility] [id number] 07:46:00 07:46:00 [place] [employer] [facility] 2019-06-05 2019-06-05 [facility] [id number] 15:15:00 15:15:00 [place] [employer] [place] [employer] [facility] Medicine Results Test Description Test Time Test Comments Text Results Atomic Results Result Comments BONE AND/OR 2019-03-19 Referring: FINAL REPORT PATIENT ID: [facility]INT [facility]AG[facility], 17:24:00 Yuniel Dailey [id number] PROCEDURE: B ONE WHOLE BODY SCAN, WHOLE BODY CPT CODE: 21036 INDICATION: Hepatocellular carcinoma C22.0, preoperative evaluati on [...] of the chest dated 9. Signed: Jackie Patricio MDRepo rt Verified Date/Time: 019 17:24:54 Reading Location: [address] [place] [address] Room T3 2019-03-15 17:05:00 Test Item Value Reference Range Comments T3 TOTAL (KY) (test code = 656) 65 ng/dL 48-159 RAD, BONE DENSITY [id number] 15:06:00Referring: Dr. Yuniel Loza for Exam:->HCC,ETOH,CIRRHOSIS, PRE TRANSPLANT EVALUATIONFINAL REPORT Bone density study, 03/14/2019 Clinical History: Screening Bone mineral density measurementLumbar spine1.384 gm/rv6Rdrplwb neck1.092 gm/cm2 Standard deviation from young adult [...] or more fragility fractures Signed: Dona Naqvi MDRzeeort Verified Date/Time: 03/15/2019 15:06:54 Reading Location: [address] Mammo Reading Room HEPATITIS A ANTIBODY, [id number] 14:48:00 Test Item Value Reference Range Comments HEPATITIS A IGG ANTIBODY (BEAKER) (test code = Reactive N onreactive 8916) CT, CHEST, WITHOUT [id number] 14:22:00Referring: [facility]: CT of the chest WITHOUT [...] IMPRESSION:No metastases in the chest. Signed: Tali Guzman MDReport Verified Date/Time: 03/14/2019 14:22:43 Reading Location: [address] Radiology Reading Room MR, ABDOMEN, [id number] 14:05:00Referring: Dr. Yuniel Fraga Abdominal VesselsFINAL REPORT [...] MDReport Verified Date/Time: 03/14/2019 14:05:02 Reading Location: [address] Radiology Reading Room VARICELLA ZOSTER ANTIBODY, [id number] 12:59:00 Test Item Value Reference Range Comments VARICELLA ZOSTER IGG (AL) (BEAKER) (test code = 3197) 5.2 VARICELLA ZOSTER RESULT INTERPRETATIONS: <=0.8 Al Nonreactive: Presumed non-immune to VZV 0.9-1.0 Al Equivocal >=1.1 Al Reactive: Presumed immune to VZVRUBELLA ANTIBODY, [id number] 12:59:00 Test Item Value Reference Range Comments RUBELLA IGG QUANTITATION (BEAKER) (test code = 41.0 IU/mL < 8.0 572) Rubella IgG Result Interpretation: </= 7.0 IU/mL Negative - Presumed non- immune 8.0 - 9.9 IU/mL Equivocal >= 10.0 IU/mL Positive - Presumed immune CYTOMEGALOVIRUS ANTIBODY, [id number] 12:59:00 Test Item Value Reference Range Comments CYTOMEGALOVIRUS, IGG (BEAKER) (test code = Positive Negat alice, Equivocal 0950) CMV IgG Result Interpretation: </= 0.8 Al Negative 0.9-1.0 Al Equivocal >/=1.1 Al PositiveCYTOMEGALOVIRUS ANTIBODY, [id number] 12:59:00 Test Item Value Reference Range Comments CYTOMEGALOVIRUS IGM ANTIBODY (BEAKER) (test Negative Nega tive, Equivocal code = 3538) CMV IgM Result Interpretation: </= 0.8 Al Negative 0.9-1.0 Al Equivocal >/= 1.1 Al PositiveEBV ANTIBODY, [id number] 12:59:00 Test Item Value Reference Range Comments [...] (test code = 1819) 36.0 % CRYPTOCOCCAL [id number] 11:57:00 Test Item Value Reference Range Comments CRYPTOCOCCAL ANTIGEN, SERUM (BEAKER) (test Negative Negat alice, Interference code = 1828) RAD, MANDIBLE, MIN 4 [id number] 11:38:00Referring: Dr. Yuniel Loza for Exam:->HCC,ETOH,CIRRHOSIS, PRE TRANSPLANT EVALUATIONFINAL REPORT TECHNIQUE: Frontal, axiolateral, and lateral views of the mandibl e. INDICATION: 44-year-old man for liver transplant evaluation. COMPARISON: None. FINDINGS:No acute fractures or dislocations.No definite dental caries or periodontal disease. IMPRESSION:No acute osseous abnormalities or definite dental/periodontal disease. Signed: Tali Guzman MDReport Verified Date/Time: 03/14/2019 11:38:59 Reading Location: [facility] Radiology Reading Room RPR 2019-03-14 11:22:00 Test Item Value Reference Range Comments RPR SCREEN (BEAKER) (test code = 420) Nonreactive Nonreactiv e HEMOGLOBIN [id number] 11:21:00 Test Item Value Reference Range Comments HEMOGLOBIN A1C (BEAKER) (test code = 368) < % 4.3-6. 1 VITAMIN D, [id number] 11:14:00 Test Item Value Reference Range Comments VITAMIN D 25-OH (BEAKER) (test code = 2764) 8.1 ng/mL 6.6- 49.9 Effective 02/01/2017: Reference Range ChangeNew: 6.6-49.9 ng/mL Previous: 13.0-47.8 ng/mLRecommended Vitamin D Target Range: 30.0-40.0 ng/mLHEPATITIS B SURFACE [id number] 10:24:00 Test Item Value Reference Range Comments HEPATITIS B SURFACE ANTIBODY (BEAKER) (test code = < mIU/mL <8.0 647) [id number] 10:01:00 Test Item Value Reference Range Comments PROSTATE SPECIFIC ANTIGEN (BEAKER) (test code = 1.9 ng/mL 0.0-4.0 844) HEPATITIS B SURFACE [id number] 10:01:00 Test Item Value Reference Range Comments HEPATITIS B SURFACE ANTIGEN (2) (BEAKER) (test Nonreactive N onreactive code = 2585) HEPATITIS C [id number] 10:01:00 Test Item Value Reference Range Comments HEPATITIS C ANTIBODY (BEAKER) (test code = 367) Nonreactive Nonreactive HIV-1 ANTIGEN WITH HIV-1/2 [id number] 10:01:00 Test Item Value Reference Range Comments HIV-1 ANTIGEN WITH HIV 1\T\2 ANTIBODY (2) Nonreactive Nonrea ctive (BEAKER) (test code = 2586) [id number] 09:59:00 Test Item Value Reference Range Comments T4 TOTAL (BEAKER) (test code = 895) 3.5 ug/dL 4.9-11.7 [id number] 09:59:00 Test Item Value Reference Range Comments THYROID STIMULATING HORMONE (BEAKER) (test code 2.71 uIU/mL 0.35-4.94 = 772) CARCINOEMBRYONIC ANTIGEN (CEA)2019-03-14 09:59:00 Test Item Value Reference Range Comments CARCINOEMBRYONIC ANTIGEN (BEAKER) (test code = 12.0 ng/mL 0 .0-5.0 685) HEPATITIS B CORE ANTIBODY, [id number] 09:59:00 Test Item Value Reference Range Comments HEPATITIS B CORE IGM ANTIBODY (BEAKER) (test Nonreactive Non reactive code = 645) HEPATITIS A ANTIBODY, [id number] 09:59:00 Test Item Value Reference Range Comments HEPATITIS A IGM ANTIBODY (BEAKER) (test code = Nonreactive N onreactive 498) HEPATITIS B CORE ANTIBODY, [id number] 09:59:00 Test Item Value Reference Range Comments HEPATITIS B CORE TOTAL ANTIBODY (BEAKER) (test Nonreactive N onreactive code = 497) [id number] 09:45:00 Test Item Value Reference Range Comments MAGNESIUM (BEAKER) (test code = 627) 1.7 mg/dL 1.6-2.6 [id number] 09:45:00 Test Item Value Reference Range Comments PHOSPHORUS (BEAKER) (test code = 604) 3.8 mg/dL 2.3-4.7 URIC [id number] 09:45:00 Test Item Value Reference Range Comments URIC ACID (BEAKER) (test code = 773) 5.4 mg/dL 2.6-7.2 Specimen slightly ictericCOMPREHENSIVE METABOLIC [id number] 09:45:00 Test Item Value Reference Range Comments [...] OR DIALYSIS PATIENT S. Specimen slightly ictericLIPID [id number] 09:45:00 Test Item Value Reference Range Comments [...] 160-189 Very High >=190 Specimen slightly ictericBILIRUBIN, [id number] 09:45:00 Test Item Value Reference Range Comments BILIRUBIN DIRECT (BEAKER) (test code = 706) 2.8 mg/dL 0.1- 0.5 GAMMA GLUTAMYL TRANSFERASE (GGT)2019-03-14 09:45:00 Test Item Value Reference Range Comments GAMMA GLUTAMYL TRANSFERASE (BEAKER) (test code = 364) 46 U/L 9-64 Specimen slightly [id number] 09:39:00 Test Item Value Reference Range Comments TRANSFERRIN (BEAKER) (test code = 541) 115 mg/dL 174-382 Specimen slightly ictericCALCIUM, [id number] 09:37:00 Test Item Value Reference Range Comments CALCIUM IONIZED (BEAKER) (test code = 698) 1.23 mmol/L 1.12- 1.27 PH, BLOOD (BEAKER) (test code = 1810) 7.30 [id number] 09:36:00 Test Item Value Reference Range Comments ETHANOL (BEAKER) (test code = 400) < mg/dL <=10 PROTHROMBIN TIME/[id number] 09:28:00 Test Item Value Reference Range Comments PROTIME (BEAKER) (test code = 759) 25.1 seconds 11.9-14.2 INR (BEAKER) (test code = 370) 2.4 <=5.9 Effective 09/19/2018: PT Reference Range ChangeNew: 11.9-14.2 Previous: 11.7- 14.7RECOMMENDED COUMADIN/WARFARIN INR THERAPY RANGESSTANDARD DOSE: 2.0-3.0 Includes: PROPHYLAXIS for venous thrombosis, systemic embolization; TREATMENT for venous thrombosis and/or pulmonary embolus.HIGH RISK: Target INR is2.5-3.5 for patients wiht mechanical heart valves.[id number] 09:28:00 Test Item Value Reference Range Comments FIBRINOGEN LEVEL (BEAKER) (test code = 658) 166 mg/dl 225- 434 [id number] 09:28:00 Test Item Value Reference Range Comments PARTIAL THROMBOPLASTIN TIME (BEAKER) (test code 55.8 seconds 22.5-36.0 = 760) URINALYSIS W/ [id number] 09:22:00 Test Item Value Reference Range Comments [...] = 2795) CBC W/PLT COUNT & AUTO [id number] 09:18:00 Test Item Value Reference Range Comments [...] code = 2801) MYOCARD IMAGING, MULTI, PHARM, [id number] 19:05:00Referring: Dr. [facility] PROCEDURE: MYOCARDIAL PERFUSION SPECT IMAGING (Rest/Stress)CPT CODE: 90207 INDICATION: Evaluation for coronary artery disease prior [...] MDReport Verified Date/Time: 03/13/2019 19:05:20 Reading Location: [place] [id number] Reading Room ANTI-NUCLEAR ANTIBODY ([place])2019-02-18 10:03:00 Test Item Value Reference Range Comments ANTI-NUCLEAR ANTIBODY ([place]) (BEAKER) (test code = Positive Negative 418) Test performed by IFA method.[place] TITER AND [id number] 10:03:00 Test Item Value Reference Range Comments [place] TITER (BEAKER) (test code = 1541) >=:2560 [place] PATTERN (BEAKER) (test code = 1781) Speckled [id number] 20:03:00 Test Item Value Reference Range Comments FERRITIN (BEAKER) (test code = 361) 2900 ng/mL 5-275 ALPHA FETOPROTEIN (AFP), TUMOR [id number] 18:51:00 Test Item Value Reference Range Comments ALPHA-FETOPROTEIN (BEAKER) (test code = 1094) 14.5 ng/mL <1 0.0 BILIRUBIN, [id number] 18:34:00 Test Item Value Reference Range Comments BILIRUBIN DIRECT (BEAKER) (test code = 706) 3.7 mg/dL 0.1- 0.5 COMPREHENSIVE METABOLIC [id number] 18:34:00 Test Item Value Reference Range Comments [...] code = 90 % 20-5 5 2590) [id number] 18:26:00 Test Item Value Reference Range Comments ALPHA-1 ANTITRYPSIN (BEAKER) (test code = 502) 165.60 mg/dL 9 0.00-200.00 PROTHROMBIN TIME/[id number] 17:50:00 Test Item Value Reference Range Comments [...] mechanical heart valves.CBC W/PLT COUNT & AUTO [id number] 17:44:00 Test Item Value Reference Range Comments [...]
--- OUTSIDE RECORDS SUMMARY | 2019-08-10 17:14 | XMS REPORT ---
:1975 Author Organization eClinicalWorks Care Team Providers Name Role Phone Asim [facility] Provider Role Unavailable Allergies, Adverse Reactions, Alerts [...] End Status Dosage System Date Date Lidoderm [facility] [id number] 5 % Externally Active 1 pa tch Once a day remove after 12 hours Trazodone HCl ND 64913664380 50 MG Orally Jun 05, Active 1 tablet Once a day 2020 at bedtime as needed Omeprazole ND 75762916106 20 MG Orally Active 1 ca psule Once a day 30 minutes before morning meal HydrOXYzine ND 13370617516 50 MG Orally Active 1 c apsule Pamoate every 8 hrs PRN as neede d Anxiety/Itching Vitamin D3 [facility] [id number] 65947 UNIT Active 1 caps ule Orally Once a week x 12 weeks Spironolactone ND 90107582337 50 MG Orally Active 1 tablet Twice a day Lasix ND 91972044423 20 MG Orally Active 1 table t Once a day Lactulose [facility] 73468700029 20 GM/30ML Active 15 ml Orally Twice a day Xifaxan [facility] 78079122222 550 MG Orally Active 1 tabl et Twice a day Multi Vitamin ND 80795456917 - Orally Once a Active 1 tablet day Carisoprodol [facility] 53306335350 350 MG Oral Active (sc hedule Four times a iv drug) day PRN take one -1 tablet(s) by mouth every six hours as needed for spasm. Escitalopram [facility] 63667487222 20 MG Orally Active 1 tablet Oxalate Once a day Folic Acid ND 67506772042 1 MG Orally Active 1 tab let Once a day Results No Known Results Summary Purpose eClinicalWorks Submission
--- OUTSIDE RECORDS SUMMARY | 2019-08-10 17:22 | XMS REPORT ---
:1975 Author Organization eClinicalWorks Care Team Providers Name Role Phone Asim [facility] Provider Role Unavailable Allergies No [...]
[2019-08-10] MEDS ORDERED: Ringers Lactate 0 ML IV ONE (17:26)
--- OUTSIDE RECORDS SUMMARY | 2019-08-10 17:31 | XMS REPORT ---
:1975 Author Organization eClinicalWorks Care Team Providers Name Role Phone Asim [facility] Provider Role Unavailable Allergies No Known Allergies [...]
--- OUTSIDE RECORDS SUMMARY | 2019-08-10 17:34 | XMS REPORT ---
:1975 Author Organization eClinicalWorks Care Team Providers Name Role Phone Dailey [facility] Provider Role Unavailable Allergies No Known Allergies [...] Medications Results No Known Results Summary Purpose [employer] Submission
--- NOTE | 2019-08-10 17:37 | ER ---
Nurse's Notes [facility] Name: Stuart Glass Age: 44 yrs Sex: Male : 1975 Arrival Date: 08/10/2019 Time: 17:06 Bed 18 Private MD: Diagnosis: Presentation: 08/09 17:00 Chief complaint: EMS states: Pt. was shoplifting at [employer] and was arrested. Started rb1 complaining of neuropathy in his legs so he was released to come to the hospital. A \\T\\ O x4, history of liver cancer, chronic back pain, cirrhosis, and neuropathy. NKA, Meds: Somas, [place], Gabapentin, and Hydroxyzine. Initial Sepsis Screen: Does the patient meet any 2 criteria? No. Patient's initial sepsis screen is negative. Does the patient have a suspected source of infection? No. Patient's initial sepsis screen is negative. Risk Assessment: Do you want to hurt yourself or someone else? Patient reports no desire to harm self or others. Onset of symptoms is unknown. 17:00 Method Of Arrival: EMS: [facility] rb1 17:00 Acuity: [place] 3 rb1 Triage Assessment: 17:00 General: Appears in no apparent distress. comfortable, Behavior is calm, cooperative. rb1 Pain: Complains of pain in right leg and left leg Pain currently is 10 out of 10 on a pain scale. Pain began chronic. Neuro: Level of Consciousness is awake, alert, obeys commands, Oriented to person, place, time, situation. Cardiovascular: Capillary refill < 3 seconds is brisk in bilateral fingers. Respiratory: Airway is patent Respiratory effort is even, unlabored, Respiratory pattern is regular, symmetrical. GI: Reports bloody stool. : No signs and/or symptoms were reported regarding the genitourinary system. Derm: Skin is pink, warm \\T\\ dry. Historical: - Allergies: 17:00 No Known Allergies; rb1 - Home Meds: 17:00 gabapentin oral oral [Active]; Soma Oral [Active]; [place] Oral [Active]; Lasix Oral rb1 [Active]; hydroxyzine HCl Oral [Active]; spironolactone Oral [Active]; Cipro Oral [Active]; Folic Acid Oral [Active]; Zinc Sulfate Oral [Active]; thiamine HCl (vitamin B1) Oral [Active]; Trazadone [Active]; lactulose Oral [Active]; Vitamin D Oral [Active]; Multi Vitamin oral oral [Active]; Crystal Oral [Active]; - PMHx: 17:00 Cirrhosis; liver cancer; neuropathy; tumors on liver; chronic back pain; rb1 - Immunization history:: Adult Immunizations up to date. - Social history:: Smoking status: Patient/guardian denies using. Screenin:00 Abuse screen: Denies threats or abuse. Nutritional screening: No deficits noted. rb1 Tuberculosis screening: No symptoms or risk factors identified. Fall Risk None identified. Assessment: 17:00 General: See Triage assessment. rb1 17:26 Reassessment: Pt. became very agitated after DOREEN Forutne Tech missed an attempt when rb1 inserting the IV, and the pt. requested that a nurse do the IV. I offered to start the IV myself and the pt. agreed. JANEL Sena offered to start the IV and when she went into the room, the pt. was very agitated, refused, and wanted to leave. Vital Signs: 17:00 BP 137 / 84; Pulse 88; Resp 19; Temp 98.2(O); Pulse Ox 100% on R/A; Weight 83.91 kg; rb1 Height 5 ft. 9 in. (175.26 cm) (R); Pain 10/10; 17:00 Body Mass Index 27.32 (83.91 kg, 175.26 cm) rb1 ED Course: 17:00 Arm band placed on right wrist. rb1 17:00 Patient has correct armband on for positive identification. Bed in low position. Call rb1 light in reach. Side rails up X 1. Pulse ox on. NIBP on. 17:06 Patient arrived in ED. aa5 17:09 George Arthur PA is PHCP. jmm 17:09 Myles Grullon MD is Attending Physician. [facility] 17:11 Julia Bond, RN is Primary Nurse. rb1 17:24 Triage completed. rb1 17:25 Missed attempt(s): 20 gauge in right antecubital area. Bleeding controlled, band aid jp3 applied, catheter tip intact. 17:36 Primary Nurse role handed off by Julia Bond, RN [facility] 17:37 Julia Bond, RN is Primary Nurse. rb1 Administered Medications: No medications were administered Outcome: 17:31 AMA Other pt waiting for belongings back from security, security called at this time, tw2 pt states "who is that jerk right there", pt educated that he is our staff and tech and that I was here to start the IV line and pt states "no your not, im getting out of here", pt educated as to the need to sign ama form, provider notified. pt signed ama form and pt stated "yall are all jerks here at this place anyways, man your not gonna tell me to stop talking, im leaving now", security notified. 17:31 AMA AMA form signed 17: Condition: stable 17:36 Patient left the ED. tw2 17:36 Patient left the ED. rb1 Signatures: George Arthur PA PA jmm Calderon, Audri, RN RN aa5 Julia Bond RN RN rb1 Jaida Feliz RN RN tw2 Nino Duncan jp3 Corrections: (The following items were deleted from the chart) 17:42 17:41 Patient left the ED. rb1 rb1
--- OUTSIDE RECORDS SUMMARY | 2019-08-10 17:38 | XMS REPORT ---
:1975 Author Organization eClinicalWorks Care Team Providers Name Role Phone Asim [facility] Provider Role Unavailable Allergies No Known Allergies [...]
--- OUTSIDE RECORDS SUMMARY | 2019-08-10 17:50 | XMS REPORT ---
[...] End Date Status Dosage System Date Carisoprodol [facility] 30632147030 350 MG Oral Four Active 1 tablet times a day PRN as neede d muscle spasm Results No Known Results Summary Purpose eClinicalWorks Submission
--- OUTSIDE RECORDS SUMMARY | 2019-08-10 17:51 | XMS REPORT ---
[...] End Status Dosage System Date Date Carisoprodol [facility] 08058673011 350 MG Oral August 28, Active (sc hedule Four times a 2020 iv drug) day PRN take one -1 tablet(s) by mouth every six hours as needed for spasm. Lasix ND 59761211250 20 MG Orally Active 1 table t Once a day Folic Acid ND 60189365096 1 MG Orally Active 1 tab let Once a day HydrOXYzine ND 58993501940 50 MG Orally Active 1 c apsule Pamoate every 8 hrs PRN as neede d Anxiety/Itching Lidoderm [facility] 47334272521 5 % Externally Active 1 pa tch Once a day remove after 12 hours Spironolactone ND 23733515956 50 MG Orally Active 1 tablet Twice a day Trazodone HCl [facility] 85090260260 100 MG Orally Active 1 tablet Once a day at bedtime as needed Lactulose [facility] 22170629185 20 GM/30ML Active 15 ml Orally Twice a day Xifaxan [facility] 88014537570 550 MG Orally Active 1 tabl et Twice a day Multi Vitamin [facility] 84414980510 - Orally Once a Active 1 tablet day Escitalopram [facility] 55677006992 20 MG Orally Active 1 tablet Oxalate Once a day Vitamin D3 [facility] 99418268955 19420 UNIT Active 1 caps ule Orally Once a week x 12 weeks Omeprazole ND 02039090650 20 MG Orally Active 1 ca psule Once a day 30 minutes before morning meal Results No Known Results Summary Purpose eClinicalWorks Submission
--- OUTSIDE RECORDS SUMMARY | 2019-08-10 17:52 | XMS REPORT ---
:1975 Author Organization eClinicalWorks Care Team Providers Name Role Phone Dailey [facility] Provider Role Unavailable Allergies No Known [...] Medications Results No Known Results Summary Purpose [email or web address] Submission
--- NOTE | 2019-08-11 17:47 | EDPHYS ---
Physician Documentation [facility] Name: Stuart Glass Age: 44 yrs Sex: Male : 1975 Arrival Date: 08/10/2019 Time: 17:06 Bed 18 Private MD: ED Physician Myles Grullon HPI: 08/09 17:11 This 44 yrs old Male presents to ER via EMS with complaints of Neuropathy; leg jmm pain. 17:11 The patient presents with pain. Onset: The symptoms/episode began/occurred today. jmm Modifying factors: The symptoms are alleviated by nothing. the symptoms are aggravated by nothing. Associated signs and symptoms: Pertinent positives: numbness, tingling, Pertinent negatives fever. This is a 44 year old male with a history of cirrhosis, liver cancer, neuropathy, chronic back pain that presents to the ED with complaints of bilateral lower leg pain and cramping. Patient states this has occurred before with low potassium levels. Denies injury. Historical: - Allergies: 17:00 No Known Allergies; rb1 - Home Meds: 17:00 gabapentin oral oral [Active]; Soma Oral [Active]; Beltrami Oral [Active]; Lasix Oral rb1 [Active]; hydroxyzine HCl Oral [Active]; spironolactone Oral [Active]; Cipro Oral [Active]; Folic Acid Oral [Active]; Zinc Sulfate Oral [Active]; thiamine HCl (vitamin B1) Oral [Active]; Trazadone [Active]; lactulose Oral [Active]; Vitamin D Oral [Active]; Multi Vitamin oral oral [Active]; Crystal Oral [Active]; - PMHx: 17:00 Cirrhosis; liver cancer; neuropathy; tumors on liver; chronic back pain; rb1 - Immunization history:: Adult Immunizations up to date. - Social history:: Smoking status: Patient/guardian denies using. ROS: 17:11 Constitutional: Negative for fever, chills, and weight loss, Cardiovascular: Negative jmm for chest pain, palpitations, and edema, Respiratory: Negative for shortness of breath, cough, wheezing, and pleuritic chest pain. 17:11 MS/extremity: Positive for pain, tingling. 17:11 All other systems are negative. Exam: 17:11 Constitutional: This is a well developed, well nourished patient who is awake, alert, jmm and in no acute distress. Head/Face: atraumatic. Eyes: EOMI, no conjunctival erythema appreciated ENT: Moist Mucus Membranes Neck: Trachea midline, Supple Chest/axilla: Normal chest wall appearance and motion. Cardiovascular: Regular rate and rhythm. No edema appreciated Respiratory: Normal respirations, no respiratory distress appreciated Abdomen/GI: Non distended, soft Back: Normal ROM Skin: General appearance color normal MS/ Extremity: Moves all extremities, no obvious deformities appreciated, no edema noted to the lower extremities Neuro: Awake and alert, normal gait Psych: Behavior is normal, Mood is normal, Patient is cooperative and pleasant Vital Signs: 17:00 BP 137 / 84; Pulse 88; Resp 19; Temp 98.2(O); Pulse Ox 100% on R/A; Weight 83.91 kg; rb1 Height 5 ft. 9 in. (175.26 cm) (R); Pain 10/10; 17:00 Body Mass Index 27.32 (83.91 kg, 175.26 cm) rb1 MDM: 17:11 Patient medically screened. [facility] 17:11 Data reviewed: vital signs, nurses notes. Refusal of service: The patient/guardian [facility] displays adequate decision making capability and despite a detailed discussion of alternatives, benefits, risks, and consequences refuses: all lab tests. Administered Medications: No medications were administered Disposition: 18:09 Co-signature as Attending Physician, Myles Grullon MD. rn Disposition: 08/10/19 17:36 Patient has left against medical advice. - Patients states they are going to Home. - Condition is Undetermined. Signatures: Dispatcher [employer] EDMS George Arthur PA PA [facility] Myles Grullon MD MD rn Barber, Rebecca, RN RN rb1 Jaida Feliz RN RN tw2 Corrections: (The following items were deleted from the chart) 17:41 17:36 08/10/2019 17:36 Patients has left against medical advice. Patient states they rb1 are going to Home. Condition is Undetermined. tw2
== END 2019-08-10 17:41 | disposition left against medical advice (07) ==
LOC: ER 17:03
DX: M79.662 Pain in left lower leg (principal); M79.661 Pain in right lower leg; G62.9 Polyneuropathy, unspecified; K74.60 Unspecified cirrhosis of liver; G89.29 Other chronic pain; Z85.05 Personal history of malignant neoplasm of liver
CPT/HCPCS: 99283; J7120

== ENCOUNTER 2019-08-12 20:14 | Observation (INO) | payer BC ==
--- OUTSIDE RECORDS SUMMARY | 2019-08-12 20:22 | XMS REPORT ---
:1975 Author Organization eClinicalWorks Care Team Providers Name Role Phone Asim Replaced By [facility] Provider Role Unavailable Allergies, Adverse Reactions, Alerts [...] End Status Dosage System Date Date Lidoderm [facility] 88426237923 5 % Externally Active 1 pa tch Once a day remove after 12 hours Trazodone HCl ND 33025855140 50 MG Orally Jun 05, Active 1 tablet Once a day 2020 at bedtime as needed Omeprazole ND 47780378066 20 MG Orally Active 1 ca psule Once a day 30 minutes before morning meal HydrOXYzine ND 07770517445 50 MG Orally Active 1 c apsule Pamoate every 8 hrs PRN as neede d Anxiety/Itching Vitamin D3 [facility] 74341856512 28465 UNIT Active 1 caps ule Orally Once a week x 12 weeks Spironolactone ND 67640802321 50 MG Orally Active 1 tablet Twice a day Lasix ND 07578266204 20 MG Orally Active 1 table t Once a day Lactulose [facility] 48728806347 20 GM/30ML Active 15 ml Orally Twice a day Xifaxan [facility] 41068327033 550 MG Orally Active 1 tabl et Twice a day Multi Vitamin ND 51358179526 - Orally Once a Active 1 tablet day Carisoprodol [facility] 50892222751 350 MG Oral Active (sc hedule Four times a iv drug) day PRN take one -1 tablet(s) by mouth every six hours as needed for spasm. Escitalopram [facility] 18912621180 20 MG Orally Active 1 tablet Oxalate Once a day Folic Acid ND 50149161117 1 MG Orally Active 1 tab let Once a day Results No Known Results Summary Purpose eClinicalWorks Submission
--- OUTSIDE RECORDS SUMMARY | 2019-08-12 20:22 | XMS REPORT ---
:1975 Author Organization [facility] t Address [address] [place] [address] Care Team Providers Name Role Phone RICARDO [...] ID 2019-07-30 2019-07-30 [facility] [id number] 15:00:00 15:00:00 [facility] 2019-07-30 2019-07-30 [facility] [id number] 10:45:00 10:45:00 [facility] 2019-07-25 2019-07-25 [facility] [id number] 15:27:00 15:27:00 [facility] 2019-07-10 2019-07-10 [facility] [id number] 10:58:00 10:58:00 [facility] 2019-07-04 2019-07-04 [facility] [id number] 15:20:00 15:20:00 [facility] 2019-06-26 2019-06-26 [facility] [id number] 10:03:00 10:03:00 [facility] 2019-06-13 2019-06-13 [facility] [id number] 07:46:00 07:46:00 [facility] 2019-06-05 2019-06-05 [facility] [id number] 15:15:00 15:15:00 [facility] Medicine Results Test Description Test Time Test Comments Text Results Atomic Results Result Comments BONE AND/OR 2019-03-19 Referring: FINAL REPORT PATIENT ID: JOINT IMAGING, 17:24:00 Yuniel Dailey [id number] PROCEDURE: B ONE WHOLE BODY SCAN, WHOLE BODY CPT CODE: 74631 INDICATION: Hepatocellular carcinoma C22.0, preoperative evaluati on [...] rt Verified Date/Time: 019 17:24:54 Reading Location: [address] T3 2019-03-15 17:05:00 Test Item Value Reference Range Comments T3 TOTAL ([place]) (test code = 656) 65 ng/dL 48-159 RAD, BONE DENSITY [id number] 15:06:00Referring: Dr. Yuniel Loza for Exam:->HCC,ETOH,CIRRHOSIS, PRE TRANSPLANT EVALUATIONFINAL REPORT Bone density study, 03/14/2019 Clinical History: Screening Bone mineral density measurementLumbar spine1.384 gm/fi5Ferxuwq neck1.092 gm/cm2 Standard deviation from young adult [...] Naqvi Verified Date/Time: 03/15/2019 15:06:54 Reading Location: [address] Mammo Reading Room HEPATITIS A ANTIBODY, [id number] 14:48:00 Test Item Value Reference Range Comments HEPATITIS A IGG ANTIBODY (BEAKER) (test code = Reactive N onreactive 3504) CT, CHEST, WITHOUT [id number] 14:22:00Referring: Dr. Yuniel OliveiraINAL REPORT TECHNIQUE: CT [...] Guzmanort Verified Date/Time: 03/14/2019 14:22:43 Reading Location: [address] Radiology Reading Room MR, ABDOMEN, [id number] 14:05:00Referring: Dr. Yuniel Fraga Abdominal VesselsFINAL REPORT [...] MDReport Verified Date/Time: 03/14/2019 14:05:02 Reading Location: [address] Radiology Reading Room VARICELLA ZOSTER ANTIBODY, [id number] 12:59:00 Test Item Value Reference Range Comments VARICELLA ZOSTER IGG (AL) (BEAKER) (test code = 3197) 5.2 VARICELLA ZOSTER RESULT INTERPRETATIONS: <=0.8 Al Nonreactive: Presumed non-immune to VZV 0.9-1.0 Al Equivocal >=1.1 Al Reactive: Presumed immune to VZVRUBELLA ANTIBODY, [id number] 12:59:00 Test Item Value Reference Range Comments RUBELLA IGG QUANTITATION (BEAKER) (test code = 41.0 IU/mL < 8.0 572) Rubella IgG Result Interpretation: </= 7.0 IU/mL Negative - Presumed non- immune 8.0 - 9.9 IU/mL Equivocal >= 10.0 IU/mL Positive - Presumed immune CYTOMEGALOVIRUS ANTIBODY, [id number] 12:59:00 Test Item Value Reference Range Comments CYTOMEGALOVIRUS, IGG (BEAKER) (test code = Positive Negat alice, Equivocal 0041) CMV IgG Result Interpretation: </= 0.8 Al Negative 0.9-1.0 Al Equivocal >/=1.1 Al PositiveCYTOMEGALOVIRUS ANTIBODY, [id number] 12:59:00 Test Item Value Reference Range Comments CYTOMEGALOVIRUS IGM ANTIBODY (BEAKER) (test Negative Nega tive, Equivocal code = 9965) CMV IgM Result Interpretation: </= 0.8 Al Negative 0.9-1.0 Al Equivocal >/= 1.1 Al PositiveEBV ANTIBODY, [id number] 12:59:00 Test Item Value Reference Range Comments [...] (test code = 1819) 36.0 % CRYPTOCOCCAL [id number] 11:57:00 Test Item Value Reference Range Comments CRYPTOCOCCAL ANTIGEN, SERUM (BEAKER) (test Negative Negat alice, Interference code = 1828) RAD, MANDIBLE, MIN 4 [id number] 11:38:00Referring: Dr. Yuniel Loza for Exam:->HCC,ETOH,CIRRHOSIS, PRE TRANSPLANT EVALUATIONFINAL REPORT TECHNIQUE: Frontal, axiolateral, and lateral views of the mandibl e. INDICATION: 44-year-old man for liver transplant evaluation. COMPARISON: None. FINDINGS:No acute fractures or dislocations.No definite dental caries or periodontal disease. IMPRESSION:No acute osseous abnormalities or definite dental/periodontal disease. Signed: Tali Guzman MDReport Verified Date/Time: 03/14/2019 11:38:59 Reading Location: [address] Radiology Reading Room RPR 2019-03-14 11:22:00 Test Item Value Reference Range Comments RPR SCREEN (BEAKER) (test code = 420) Nonreactive Nonreactiv e HEMOGLOBIN [id number] 11:21:00 Test Item Value Reference Range Comments HEMOGLOBIN A1C (BEAKER) (test code = 368) < % 4.3-6. 1 VITAMIN D, [id number] 11:14:00 Test Item Value Reference Range Comments VITAMIN D 25-OH (BEAKER) (test code = 2764) 8.1 ng/mL 6.6- 49.9 Effective 02/01/2017: Reference Range ChangeNew: 6.6-49.9 ng/mL Previous: 13.0-47.8 ng/mLRecommended Vitamin D Target Range: 30.0-40.0 ng/mLHEPATITIS B SURFACE [id number] 10:24:00 Test Item Value Reference Range Comments HEPATITIS B SURFACE ANTIBODY (BEAKER) (test code = < mIU/mL <8.0 647) [id number] 10:01:00 Test Item Value Reference Range Comments PROSTATE SPECIFIC ANTIGEN (BEAKER) (test code = 1.9 ng/mL 0.0-4.0 844) HEPATITIS B SURFACE [id number] 10:01:00 Test Item Value Reference Range Comments HEPATITIS B SURFACE ANTIGEN (2) (BEAKER) (test Nonreactive N onreactive code = 2585) HEPATITIS C [id number] 10:01:00 Test Item Value Reference Range Comments HEPATITIS C ANTIBODY (BEAKER) (test code = 367) Nonreactive Nonreactive HIV-1 ANTIGEN WITH HIV-1/2 [id number] 10:01:00 Test Item Value Reference Range Comments HIV-1 ANTIGEN WITH HIV 1\T\2 ANTIBODY (2) Nonreactive Nonrea ctive (BEAKER) (test code = 2586) [id number] 09:59:00 Test Item Value Reference Range Comments T4 TOTAL (BEAKER) (test code = 895) 3.5 ug/dL 4.9-11.7 [id number] 09:59:00 Test Item Value Reference Range Comments THYROID STIMULATING HORMONE (BEAKER) (test code 2.71 uIU/mL 0.35-4.94 = 772) CARCINOEMBRYONIC ANTIGEN (CEA)2019-03-14 09:59:00 Test Item Value Reference Range Comments CARCINOEMBRYONIC ANTIGEN (BEAKER) (test code = 12.0 ng/mL 0 .0-5.0 685) HEPATITIS B CORE ANTIBODY, [id number] 09:59:00 Test Item Value Reference Range Comments HEPATITIS B CORE IGM ANTIBODY (BEAKER) (test Nonreactive Non reactive code = 645) HEPATITIS A ANTIBODY, [id number] 09:59:00 Test Item Value Reference Range Comments HEPATITIS A IGM ANTIBODY (BEAKER) (test code = Nonreactive N onreactive 498) HEPATITIS B CORE ANTIBODY, [id number] 09:59:00 Test Item Value Reference Range Comments HEPATITIS B CORE TOTAL ANTIBODY (BEAKER) (test Nonreactive N onreactive code = 497) [id number] 09:45:00 Test Item Value Reference Range Comments MAGNESIUM (BEAKER) (test code = 627) 1.7 mg/dL 1.6-2.6 [id number] 09:45:00 Test Item Value Reference Range Comments PHOSPHORUS (BEAKER) (test code = 604) 3.8 mg/dL 2.3-4.7 URIC [id number] 09:45:00 Test Item Value Reference Range Comments URIC ACID (BEAKER) (test code = 773) 5.4 mg/dL 2.6-7.2 Specimen slightly ictericCOMPREHENSIVE METABOLIC [id number] 09:45:00 Test Item Value Reference Range Comments [...] OR DIALYSIS PATIENT S. Specimen slightly ictericLIPID [id number] 09:45:00 Test Item Value Reference Range Comments [...] 160-189 Very High >=190 Specimen slightly ictericBILIRUBIN, [id number] 09:45:00 Test Item Value Reference Range Comments BILIRUBIN DIRECT (BEAKER) (test code = 706) 2.8 mg/dL 0.1- 0.5 GAMMA GLUTAMYL TRANSFERASE (GGT)2019-03-14 09:45:00 Test Item Value Reference Range Comments GAMMA GLUTAMYL TRANSFERASE (BEAKER) (test code = 364) 46 U/L 9-64 Specimen slightly [id number] 09:39:00 Test Item Value Reference Range Comments TRANSFERRIN (BEAKER) (test code = 541) 115 mg/dL 174-382 Specimen slightly ictericCALCIUM, [id number] 09:37:00 Test Item Value Reference Range Comments CALCIUM IONIZED (BEAKER) (test code = 698) 1.23 mmol/L 1.12- 1.27 PH, BLOOD (BEAKER) (test code = 1810) 7.30 [id number] 09:36:00 Test Item Value Reference Range Comments ETHANOL (BEAKER) (test code = 400) < mg/dL <=10 PROTHROMBIN TIME/[id number] 09:28:00 Test Item Value Reference Range Comments PROTIME (BEAKER) (test code = 759) 25.1 seconds 11.9-14.2 INR (BEAKER) (test code = 370) 2.4 <=5.9 Effective 09/19/2018: PT Reference Range ChangeNew: 11.9-14.2 Previous: 11.7- 14.7RECOMMENDED COUMADIN/WARFARIN INR THERAPY RANGESSTANDARD DOSE: 2.0-3.0 Includes: PROPHYLAXIS for venous thrombosis, systemic embolization; TREATMENT for venous thrombosis and/or pulmonary embolus.HIGH RISK: Target INR is2.5-3.5 for patients wiht mechanical heart valves.[id number] 09:28:00 Test Item Value Reference Range Comments FIBRINOGEN LEVEL (BEAKER) (test code = 658) 166 mg/dl 225- 434 [id number] 09:28:00 Test Item Value Reference Range Comments PARTIAL THROMBOPLASTIN TIME (BEAKER) (test code 55.8 seconds 22.5-36.0 = 760) URINALYSIS W/ [id number] 09:22:00 Test Item Value Reference Range Comments [...] = 2795) CBC W/PLT COUNT & AUTO [id number] 09:18:00 Test Item Value Reference Range Comments [...] code = 2801) MYOCARD IMAGING, MULTI, PHARM, [id number] 19:05:00Referring: Dr. Brice [facility] PROCEDURE: MYOCARDIAL PERFUSION SPECT IMAGING (Rest/Stress)CPT CODE: 60317 INDICATION: Evaluation for coronary artery disease prior [...] MDReport Verified Date/Time: 03/13/2019 19:05:20 Reading Location: [address] Reading Room ANTI-NUCLEAR ANTIBODY ([place])2019-02-18 10:03:00 Test Item Value Reference Range Comments ANTI-NUCLEAR ANTIBODY ([place]) (BEAKER) (test code = Positive Negative 418) Test performed by IFA method.[place] TITER AND [id number] 10:03:00 Test Item Value Reference Range Comments [place] TITER (BEAKER) (test code = 1541) >=:2560 [place] PATTERN (BEAKER) (test code = 1781) Speckled [id number] 20:03:00 Test Item Value Reference Range Comments FERRITIN (BEAKER) (test code = 361) 2900 ng/mL 5-275 ALPHA FETOPROTEIN (AFP), TUMOR [id number] 18:51:00 Test Item Value Reference Range Comments ALPHA-FETOPROTEIN (BEAKER) (test code = 1094) 14.5 ng/mL <1 0.0 BILIRUBIN, [id number] 18:34:00 Test Item Value Reference Range Comments BILIRUBIN DIRECT (BEAKER) (test code = 706) 3.7 mg/dL 0.1- 0.5 COMPREHENSIVE METABOLIC [id number] 18:34:00 Test Item Value Reference Range Comments [...] code = 90 % 20-5 5 2590) [id number] 18:26:00 Test Item Value Reference Range Comments ALPHA-1 ANTITRYPSIN (BEAKER) (test code = 502) 165.60 mg/dL 9 0.00-200.00 PROTHROMBIN TIME/[id number] 17:50:00 Test Item Value Reference Range Comments [...] mechanical heart valves.CBC W/PLT COUNT & AUTO [id number] 17:44:00 Test Item Value Reference Range Comments [...]
--- OUTSIDE RECORDS SUMMARY | 2019-08-12 20:27 | XMS REPORT ---
:1975 Author Organization eClinicalWorks Care Team Providers Name Role Phone Asim [facility]1983 Provider Role Unavailable Allergies No Known Allergies [...]
--- OUTSIDE RECORDS SUMMARY | 2019-08-12 20:33 | XMS REPORT ---
:1975 Author Organization eClinicalWorks Care Team Providers Name Role Phone Asim [facility] Provider Role Unavailable Allergies No Known Allergies [...]
--- OUTSIDE RECORDS SUMMARY | 2019-08-12 20:35 | XMS REPORT ---
:1975 Author Organization eClinicalWorks Care Team Providers Name Role Phone Dailey [facility] Provider Role Unavailable Allergies No Known Allergies [...] Medications Results No Known Results Summary Purpose Gear[employer] Submission
--- OUTSIDE RECORDS SUMMARY | 2019-08-12 20:39 | XMS REPORT ---
:1975 Author Organization eClinicalWorks Care Team Providers Name Role Phone Asim [facility] Provider Role Unavailable Allergies No [...]
[2019-08-12] MEDS ORDERED: NA CHLORIDE 0.9% 1,000 ML ONE (20:44)
--- OUTSIDE RECORDS SUMMARY | 2019-08-12 20:47 | XMS REPORT ---
[...] End Date Status Dosage System Date Carisoprodol [facility] 15466584999 350 MG Oral Four Active 1 tablet times a day PRN as neede d muscle spasm Results No Known Results Summary Purpose eClinicalWorks Submission
--- OUTSIDE RECORDS SUMMARY | 2019-08-12 20:48 | XMS REPORT ---
[...] End Status Dosage System Date Date Carisoprodol [facility] 91197535871 350 MG Oral August 28, Active (sc hedule Four times a 2020 iv drug) day PRN take one -1 tablet(s) by mouth every six hours as needed for spasm. Lasix ND 33485136702 20 MG Orally Active 1 table t Once a day Folic Acid ND 50715250765 1 MG Orally Active 1 tab let Once a day HydrOXYzine ND 87218864274 50 MG Orally Active 1 c apsule Pamoate every 8 hrs PRN as neede d Anxiety/Itching Lidoderm [facility] 87744010220 5 % Externally Active 1 pa tch Once a day remove after 12 hours Spironolactone ND 11925465561 50 MG Orally Active 1 tablet Twice a day Trazodone HCl [facility] 00214961056 100 MG Orally Active 1 tablet Once a day at bedtime as needed Lactulose [facility] 26949277569 20 GM/30ML Active 15 ml Orally Twice a day Xifaxan [facility] 97898479546 550 MG Orally Active 1 tabl et Twice a day Multi Vitamin [facility] 67343032649 - Orally Once a Active 1 tablet day Escitalopram [facility] 53119262664 20 MG Orally Active 1 tablet Oxalate Once a day Vitamin D3 [facility] 16674444988 40832 UNIT Active 1 caps ule Orally Once a week x 12 weeks Omeprazole ND 16382297047 20 MG Orally Active 1 ca psule Once a day 30 minutes before morning meal Results No Known Results Summary Purpose eClinicalWorks Submission
--- OUTSIDE RECORDS SUMMARY | 2019-08-12 20:48 | XMS REPORT ---
:1975 Author Organization eClinicalWorks Care Team Providers Name Role Phone Dailey [facility] Provider Role Unavailable Allergies No Known Allergies [...] Medications Results No Known Results Summary Purpose PROGENESIS TECHNOLOGIESinicalYOGASMOGA Submission
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
--- NOTE | 2019-08-12 21:07 | RAD REPORT ---
EXAM DESCRIPTION: CT - Head C Spine Mpr Wo Con - 08/12/2019 8:44 pm CLINICAL HISTORY: Syncope .Head and neck injury status post fall. Head and neck pain COMPARISON: None. TECHNIQUE: Computed axial tomography of the head and cervical spine was obtained. Sagittal and coronal reconstruction was performed. All CT scans are performed using dose optimization technique as appropriate and may include automated exposure control or mA/KV adjustment according to patient size. FINDINGS: An intracranial bleed is not seen. The ventricles are normal in caliber. An extra-axial fl uid collection is not noted.Fluid within the visualized sinuses and mastoids is not seen A cervical fracture is not visualized. No dislocation is noted. IMPRESSION: No acute intracranial abnormality is seen. A cervical fracture is not visualized. If the patient continues to have symptoms to suggest intracra nial /spinal cord pathology then MRI would be recommended
[2019-08-12 21:11] LABS: Absolute Lymphocytes (CBC) 0.7 K/uL (0.7-4.9); Basophils % 1.2 % (0-1.3); Hematocrit 24.7 % (39.6-49.0); Lymphocytes % 21.5 % (15.3-44.8); MPV 7.5 fL (7.6-11.3); RBC Red Blood Cell Count 2.38 M/uL (4.33-5.43)
[2019-08-12 21:17] LABS: Protime INR 2.16
[2019-08-12 21:29] LABS: Bilirubin Total 3.3 mg/dL (0.2-1.0); Potassium 3.4 mmol/L (3.5-5.1); Protein, Total 7.7 g/dL (6.4-8.2); Troponin (Emerg Dept Use Only) 0.03 ng/mL (0.0-0.045)
[2019-08-12 21:30] LABS: CKMB Creatine Kinase MB 3.8 ng/mL (0.3-3.6)
[2019-08-12 22:31] LABS: Anisocytosis 1+; Blood Morphology Comment NOTED (NOT SEEN); Platelet Estimate DECR
--- NOTE | 2019-08-12 22:42 | EDPHYS ---
Physician Documentation [facility] Name: Stuart Glass Age: 44 yrs Sex: Male : 1975 Arrival Date: 08/12/2019 Time: 20:15 Bed 7 Private MD: ED Physician Van Carrizales HPI: 08/11 22:39 This 44 yrs old Male presents to ER via EMS with complaints of Syncope. ma2 22:39 The patient has experienced syncope. Onset: The symptoms/episode began/occurred ma2 suddenly, 1 hour(s) ago. Duration: This was a single episode, that lasted an unknown period of time. Associated signs and symptoms: Pertinent positives: Pertinent negatives: agitation, blurred vision, combativeness, confusion, diaphoresis. Current symptoms: Currently, the patient is not experiencing any symptoms, the patient feels back to baseline. The patient has not experienced similar symptoms in the past. Historical: - Allergies: 20:23 No Known Allergies; - Home Meds: 20:23 Crystal Oral [Active]; Cipro Oral [Active]; Folic Acid Oral [Active]; gabapentin Oral ah [Active]; hydroxyzine HCl Oral [Active]; Lactulose Oral [Active]; Lasix Oral [Active]; Multi Vitamin Oral [Active]; [place] Oral [Active]; Soma Oral [Active]; Spironolactone Oral [Active]; thiamine HCl (vitamin B1) Oral [Active]; trazadone [Active]; Vitamin D Oral [Active]; Zinc Sulfate Oral [Active]; - PMHx: 20:23 chronic back pain; Cirrhosis; liver cancer; neuropathy; tumors on liver; - PSHx: 20:23 Unable to obtain; - Immunization history:: Flu vaccine is up to date. - Social history:: Smoking status: Patient denies any tobacco usage or history of. ROS: 22:39 Constitutional: Negative for fever, chills, and weight loss. ma2 22:39 All other systems are negative. Exam: 22:39 Abdomen/GI: Exam negative for ma2 22:39 Constitutional: This is a well developed, well nourished patient who is awake, alert, and in no acute distress. Head/Face: Normocephalic, atraumatic. Eyes: Pupils equal round and reactive to light, extra-ocular motions intact. Lids and lashes normal. Conjunctiva and sclera are non-icteric and not injected. Cornea within normal limits. Periorbital areas with no swelling, redness, or edema. Neck: Trachea midline, no thyromegaly or masses palpated, and no cervical lymphadenopathy. Supple, full range of motion without nuchal rigidity, or vertebral point tenderness. No Meningismus. Chest/axilla: Normal chest wall appearance and motion. Nontender with no deformity. No lesions are appreciated. Cardiovascular: Regular rate and rhythm with a normal S1 and S2. No gallops, murmurs, or rubs. Normal PMI, no JVD. No pulse deficits. Respiratory: Lungs have equal breath sounds bilaterally, clear to auscultation and percussion. No rales, rhonchi or wheezes noted. No increased work of breathing, no retractions or nasal flaring. Abdomen/GI: Soft, non-tender, with normal bowel sounds. No distension or tympany. No guarding or rebound. No evidence of tenderness throughout. MS/ Extremity: Pulses equal, no cyanosis. Neurovascular intact. Full, normal range of motion. Neuro: Awake and alert, GCS 15, oriented to person, place, time, and situation. Cranial nerves II-XII grossly intact. Motor strength 5/5 in all extremities. Sensory grossly intact. Cerebellar exam normal. Normal gait. Vital Signs: 20:15 BP 136 / 75; Pulse 82; Resp 15; Temp 97.5; Pulse Ox 100% on R/A; ah 21:05 BP 123 / 70; Pulse 73; Resp 18; Pulse Ox 99% on R/A; ea 22:15 BP 127 / 67; Pulse 70; Resp 18; Pulse Ox 98% on R/A; ea 08/12 00:33 BP 131 / 72; Pulse 84; Resp 18; Pulse Ox 95% on R/A; ea MDM: 08/11 20:15 Patient medically screened. ma2 22:39 Differential Diagnosis: drug effect, emotional response, idiopathic syncope, vasovagal ma2 episode. Data reviewed: vital signs, nurses notes. Counseling: I had a detailed discussion with the patient and/or guardian regarding: the historical points, exam findings, and any diagnostic results supporting the discharge/admit diagnosis, the presence of at least one elevated blood pressure reading (>120/80) during this emergency department visit, the need for further work-up and treatment in the hospital. Response to treatment: the patient's symptoms have markedly improved after treatment. 08/11 20:32 Order name: Basic Metabolic Panel; Complete Time: 22:11 08/11 20:32 Order name: CBC with Diff; Complete Time: 22:38 08/11 20:32 Order name: LFT's; Complete Time: 22:11 08/11 20:32 Order name: Magnesium; Complete Time: 22:11 08/11 20:32 Order name: NT PRO-BNP; Complete Time: 22:11 08/11 20:32 Order name: PT-INR; Complete Time: 22: 08/11 20:32 Order name: Troponin (emerg Dept Use Only); Complete Time: 22:11 08/11 20:32 Order name: AMMONIA; Complete Time: 22:11 08/11 20:36 Order name: Ckmb; Complete Time: 22:11 08/11 20:36 Order name: CPK; Complete Time: 22:11 08/11 20:36 Order name: Lipase; Complete Time: 22:11 08/11 21:11 Order name: PTT, Activated Partial Thromb; Complete Time: 22:11 EDAL 08/11 21:15 Order name: Manual Differential; Complete Time: 22:38 [facility] 08/11 20:32 Order name: EKG; Complete Time: 20:33 08/11 20:32 Order name: CT Head C Spine; Complete Time: 22:11 08/11 20:36 Order name: Call for Old EKG; Complete Time: 20:50 08/11 23:24 Order name: CONS Pharmacy Consult EDAL 08/11 23:24 Order name: CBC with Automated Diff EDMS 08/11 23:24 Order name: CBC with Automated Diff EDMS 08/11 23:24 Order name: Comprehensive Metabolic Panel EDAL 08/11 23:24 Order name: Comprehensive Metabolic Panel EDAL 08/11 23:24 Order name: Lipid Profile EDAL 08/11 23:24 Order name: Lipid Profile EDMS 08/11 23:24 Order name: Protime (+INR) EDMS 08/11 23:24 Order name: Protime (+INR) EDMS 08/11 23:24 Order name: PTT, Activated Partial Thromb EDAL 08/11 23:24 Order name: PTT, Activated Partial Thromb EDAL 08/11 20:32 Order name: Cardiac monitoring; Complete Time: 20:33 08/11 20:32 Order name: EKG - Nurse/Tech; Complete Time: 21:04 08/11 20:32 Order name: IV Saline Lock; Complete Time: 20:33 ea 08/11 20:32 Order name: Labs collected and sent; Complete Time: 21:04 ea 08/11 20:32 Order name: O2 Per Protocol; Complete Time: 20:33 ea 08/11 20:32 Order name: O2 Sat Monitoring; Complete Time: 20:33 ea 08/11 20:36 Order name: NPO; Complete Time: 20:36 08/11 23:25 Order name: CONS Physician Consult EDAL Administered Medications: 21:04 Drug: NS 0.9% 1000 ml Route: IV; Rate: 1 bolus; Site: right antecubital; ea 08/12 00:22 Follow up: Response: No adverse reaction; IV Status: Completed infusion; IV Intake: ea 1000ml 00:36 Drug: Lactulose 30 grams Volume: 45 ml; Route: PO; ea 00:52 Follow up: Response: No adverse reaction ea Disposition: 08/12/19 22:41 Hospitalization ordered by Van William for Observation. Preliminary diagnosis are Altered mental status, unspecified, Syncope and collapse. - Bed requested for Telemetry/MedSurg (observation). - Status is Observation. ea - Condition is Stable. - Problem is new. - Symptoms are unchanged. Signatures: Dispatcher [employer] EDAL Cassidy Stevenson, RN JANEL Kayla Oneill RN Van Larsen ea, MD MD ma2 Meche Short 2 Delmy Julio, RN RN Corrections: (The following items were deleted from the chart) 08/11 21:11 20:37 PTT, ACTIVATED+COAG.LAB.BRZ ordered. [facility] 23:50 22:41 Hospitalization Ordered by Van William MD for Observation. Preliminary diagnosis is Altered mental status, unspecified; Syncope and collapse. Bed requested for Telemetry/MedSurg (observation). Status is Observation. Condition is Stable. Problem is new. Symptoms are unchanged. eleanor 08/12 00:51 08/11 23:50 08/12/2019 22:41 Hospitalization Ordered by Van William MD for ea Observation. Preliminary diagnosis is Altered mental status, unspecified; Syncope and collapse. Bed requested for Telemetry/MedSurg (observation). Status is Observation. Condition is Stable. Problem is new. Symptoms are unchanged. cg 08/12 00:58 00:51 08/12/2019 22:41 Hospitalization Ordered by Van William MD for Observation. ea Preliminary diagnosis is Altered mental status, unspecified; Syncope and collapse. Bed requested for Telemetry/MedSurg (observation). Status is Observation. Condition is Stable. Problem is new. Symptoms are unchanged. ea
--- NOTE | 2019-08-12 22:42 | ER ---
Nurse's Notes [facility] Name: Stuart Glass Age: 44 yrs Sex: Male : 1975 Arrival Date: 08/12/2019 Time: 20:15 Bed 7 Private MD: Diagnosis: Altered mental status, unspecified;Syncope and collapse Presentation: 08/11 20:15 Chief complaint: EMS states: that pt had a syncopal episode at [employer] and fell into a pallet of tile. EMS states that he took 1/2 xanax earlier of unknown MG. Reported blood sugar 261. Coronavirus screen: Proceed with normal triage. Patient denies a cough. Patient denies shortness of breath or difficulty breathing. Patient denies measured and/or subjective temperature greater than 100.4F prior to today's visit. Patient denies travel on a cruise ship or to a country the [facility] currently lists as an affected area. Patient denies contact with known and/or suspected case of COVID-19. Ebola Screen: No symptoms or risks identified at this time. Initial Sepsis Screen: Does the patient meet any 2 criteria? No. Patient's initial sepsis screen is negative. Does the patient have a suspected source of infection? No. Patient's initial sepsis screen is negative. Risk Assessment: Do you want to hurt yourself or someone else? Patient reports no desire to harm self or others. Onset of symptoms was August 12, 2019. 20:15 Method Of Arrival: EMS: [facility] 20:15 Acuity: [place] 2 21:16 Care prior to arrival: IV initiated. 20 GA, in the left antecubital area, Glucose ah check: 261. Historical: - Allergies: 20:23 No Known Allergies; - Home Meds: 20:23 Crystal Oral [Active]; Cipro Oral [Active]; Folic Acid Oral [Active]; gabapentin Oral ah [Active]; hydroxyzine HCl Oral [Active]; Lactulose Oral [Active]; Lasix Oral [Active]; Multi Vitamin Oral [Active]; [place] Oral [Active]; Soma Oral [Active]; Spironolactone Oral [Active]; thiamine HCl (vitamin B1) Oral [Active]; trazadone [Active]; Vitamin D Oral [Active]; Zinc Sulfate Oral [Active]; - PMHx: 20:23 chronic back pain; Cirrhosis; liver cancer; neuropathy; tumors on liver; ah - PSHx: 20:23 Unable to obtain; ah - Immunization history:: Flu vaccine is up to date. - Social history:: Smoking status: Patient denies any tobacco usage or history of. Screenin:15 Abuse screen: Denies threats or abuse. Nutritional screening: No deficits noted. ea Tuberculosis screening: No symptoms or risk factors identified. Fall Risk IV access (20 points). Assessment: 20:16 General: Appears in no apparent distress. Behavior is drowsy. Pain: Complains of pain ea in right foot and left foot. Neuro: Level of Consciousness is obeys commands, Oriented to person. Cardiovascular: Patient's skin is warm and dry. Respiratory: Airway is patent Respiratory effort is even, unlabored, Respiratory pattern is regular, symmetrical. Derm: Skin is jaundiced, Skin temperature is warm. 21:23 Reassessment: Patient and/or family updated on plan of care and expected duration. Pain ea level reassessed. Pt sleeping with eyes closed, respirations even and unlabored, chest expansions even and symmetrical. No s/s of pain or discomfort noted at this time. 22:50 Reassessment: Patient and/or family updated on plan of care and expected duration. Pain ea level reassessed. Pt resting with eyes closed, respirations even and unlabored, chest expansions even and symmetrical. Attempted to call Marcos () at [phone], unable to reach at this time. 23:00 Reassessment: Patient and/or family updated on plan of care and expected duration. Pain ea level reassessed. Pt resting with eyes closed, respirations even and unlabored, chest expansions even and symmetrical. No s/s of pain or discomfort noted at this time. 08/12 00:20 Reassessment: Patient and/or family updated on plan of care and expected duration. Pain ea level reassessed. Attempted to call , unable to reach at this time, unable to leave call back number, voicemail has not been set up. 00:50 Reassessment: Patient and/or family updated on plan of care and expected duration. Pain ea level reassessed. Pt admitted to second floor, pt left ED via stretcher per tech, pt tolerating well. Vital Signs: 08/11 20:15 BP 136 / 75; Pulse 82; Resp 15; Temp 97.5; Pulse Ox 100% on R/A; ah 21:05 BP 123 / 70; Pulse 73; Resp 18; Pulse Ox 99% on R/A; ea 22:15 BP 127 / 67; Pulse 70; Resp 18; Pulse Ox 98% on R/A; ea 08/12 00:33 BP 131 / 72; Pulse 84; Resp 18; Pulse Ox 95% on R/A; ea ED Course: 08/11 20:15 Patient arrived in ED. ah 20:15 Kayla Oneill, JANEL is Primary Nurse. ea 20:15 Van Carrizales MD is Attending Physician. ma2 20:16 Patient has correct armband on for positive identification. Placed in gown. Bed in low ea position. Call light in reach. Side rails up X2. 20:19 Triage completed. ah 20:20 Arm band placed on right wrist. Patient placed in an exam room, on a stretcher, on ea pulse oximetry. 20:45 CT Head C Spine In Process Unspecified. EDMS 20:51 pts Marcos called her number [phone]. mw2 22:40 Cleaned of incontinence. Linen changed. sg 22:41 Van William MD is Hospitalizing Provider. ma2 23:09 No provider procedures requiring assistance completed. Patient admitted, IV remains in ea place. 08/12 00:53 Primary Nurse role handed off by Kayla Oneill RN ea Administered Medications: 08/11 21:04 Drug: NS 0.9% 1000 ml Route: IV; Rate: 1 bolus; Site: right antecubital; ea 08/12 00:22 Follow up: Response: No adverse reaction; IV Status: Completed infusion; IV Intake: ea 1000ml 00:36 Drug: Lactulose 30 grams Volume: 45 ml; Route: PO; ea 00:52 Follow up: Response: No adverse reaction ea Intake: 00:22 IV: 1000ml; Total: 1000ml. ea Outcome: 08/11 22:41 Decision to Hospitalize by Provider. ma2 23:00 Instructed on the need for admit. ea 08/12 00:50 Admitted to Med/surg accompanied by tech, room 225, with chart, Report called to Jes saldaña RN Condition: stable 00:51 Patient left the ED. ea 00:58 Patient left the ED. ea Signatures: Dispatcher [employer] Frankie Rees, RN RN Kayla Blackburn RN RN Van Cummings MD MD [facility] Meche Short [facility] Delmy Julio RN RN
[2019-08-12] MEDS ORDERED: ACETAMINOPHEN 500 MG TAB PO PRN (23:20)
[2019-08-12] MEDS ORDERED: ONDANSETRON 4 MG/2 ML VIAL IV PRN (23:20)
[2019-08-12] MEDS ORDERED: MORPHINE 2 MG/ML SYR IV PRN (23:20)
[2019-08-12] MEDS ORDERED: LACTULOSE 20 GM/30 ML UCUP ONE (23:27)
[2019-08-13 01:06] VITALS: BP 131/72; O2SAT 95
[2019-08-13 01:52] VITALS: BMI 26.6
[2019-08-13 02:37] VITALS: TEMP 97.3
--- NOTE | 2019-08-13 07:20 | EKG ---
Test Date: 2019-08-12 Test Time: 21:05:00 Senior Executive Compensation Analyst: CASE MEASUREMENT RESULTS: Intervals: Rate: 73 MD: 154 QRSD: 86 QT: 428 QTc: 471 [place]: P: 60 MD: 154 QRS: 51 T: 27 INTERPRETIVE STATEMENTS: Normal sinus rhythm Normal ECG Compared to ECG 08/09/2019 02:17:11 No significant changes Electronically Signed On 08-13-19 07:20:45 CDT by Alonzo Duffy
--- NOTE | 2019-08-13 07:59 | P.SSS ---
Patient History Date of Service: 08/13/19 Primary Care Provider: Dr. Dailey Reason for admission: Syncopal episode History of Present Illness: Patient is a 44-year-old gentleman who came to the hospital after a syncopal event. He has a history of cirrhosis and he was on the liver transplant list but because of his noncompliance he was apparently removed from the transplant list according to the patient. When he got to the floor he said he was going to walk out of the hospital. He has fallen on numerous occasions. He does need further workup however he does not want stay in the hospital. He is having a sore throat as well and he is asking me to prescribe him promethazine with codeine. I told him that if I was able to talk with him and I felt that was appropriate that I would prescribe it. However, patient did not want to discuss anything and just wanted the prescription. He asked me repeatedly to prescribe him some promethazine with codeine, and he questioned why I would not help him. I tried to explain to him that I needed to talk to him but since he would not talk to me it would be impossible for me to prescribe him anything. He was trying to be manipulative by telling me I was not helping him since I would not give him the prescription; however, he did choose to not talk to me about his medical issues. I did advice him to stay but he said his was going to pick him up and she was a nurse and would be able to take care of him. He decided to leave against medical advice. Allergies No Known Allergies Allergy (Verified 08/13/19 01:54) - Past Medical/Surgical History Has patient received pneumonia vaccine in the past: Yes Diabetic: No -: Cirrhosis secondary to hepatitis Past Surgical History: Unable to obtain - Social History Smoking Status: Never smoker Place of Residence: Home Review of Systems Patient was argumentative Physical Examination - Vital Signs Temperature: 97.3 F Blood Pressure: 131/72 Pulse: 84 Respirations: 18 Pulse Ox (%): 100 - Physical Exam General: Alert, In no apparent distress, Confused (But he follows all commands and answers questions appropriately; however he does seem to be very slow on his responses) HEENT: Atraumatic, PERRLA, Mucous membr. moist/pink, EOMI, Sclerae nonicteric Neck: Supple, 2+ carotid pulse no bruit, No LAD, Without JVD or thyroid abnormality Respiratory: Clear to auscultation bilaterally, Normal air movement Cardiovascular: Regular rate/rhythm, Normal S1 S2 Gastrointestinal: Normal bowel sounds, Soft and benign, Non-distended, No tenderness Musculoskeletal: No tenderness Integumentary: No rashes Neurological: Normal gait, Normal speech, Normal tone, Sensation intact, Cranial nerves 3-12 intact, Normal affect, Abnormal strength Lymphatics: No axilla or inguinal lymphadenopathy - Studies Laboratory Data (last 24 hrs) 08/12/19 20:55: APTT Cancelled 08/12/19 20:55: Lipase 80 08/12/19 20:55: PT 25.1 H, INR 2.16, APTT 46.8 H 08/12/19 20:55: WBC 3.3 L D, Hgb 8.4 L, Hct 24.7 L, Plt Count 58 L 08/12/19 20:55: Sodium 134 L, Potassium 3.4 L, BUN 20 H, Creatinine 1.10, Glucose 213 H, Magnesium 2.0, Total Bilirubin 3.3 H, AST 84 H, ALT 61, Alkaline Phosphatase 185 H Treatment Summary: Patient left against medical advice - Disposition Discharge Date: 08/13/19 Disposition: AMA-LEFT AGAINST MEDICAL ADVIC Condition: FAIR Patient Discharge Instructions: Spoke with patient and he wanted promethazine with codeine prior to leaving. Spoke with patient and nurses and told him this would not be possible. As he was signing out AMA. I would not be able to write him any prescriptions unless he decided to be further evaluated. However, patient decided to leave AM without any prescriptions. Time Spent Managing Pts Care (In Minutes): 40
== END 2019-08-13 02:25 | disposition left against medical advice (07) ==
LOC: ER 20:14 → ERHOLD 23:24 → 2ND 08-13 00:53
PROVIDERS: ADMIT Hospitalist; ATTEND Hospitalist
DX: R55 Syncope and collapse (principal); Z53.29 Procedure and treatment not carried out because of patient's decision for other reasons; K74.60 Unspecified cirrhosis of liver; K75.9 Inflammatory liver disease, unspecified
CPT/HCPCS: 96361; 93005; 85025; 80048; 36415; 82140; 83735; 82550; 85610; 80076; 85730; 84484; 82553; 83690; 83880; 70450; 72125; 96360; 99285; J7030; G0378 ×2

== ENCOUNTER 2019-08-13 08:27 | Emergency (ER) | payer BC ==
--- OUTSIDE RECORDS SUMMARY | 2019-08-13 08:39 | XMS REPORT ---
:1975 Author Organization [facility] t Address [address] [place] [address] Care Team Providers Name Role Phone CY CERVANTESKorey Unavailable Unavailable MERCEDES ELENA Unavailable Unavailable [...] ID 2019-07-30 2019-07-30 [facility] [id number] 15:00:00 15:00:00 [facility] 2019-07-30 2019-07-30 [facility] [id number] 10:45:00 10:45:00 Left Hand [facility] 2019-07-25 2019-07-25 [facility] [id number] 15:27:00 15:27:00 Left Hand [email or web address] 2019-07-10 2019-07-10 [facility] [id number] 10:58:00 10:58:00 [email or web address] 2019-07-04 2019-07-04 [facility] [id number] 15:20:00 15:20:00 [email or web address] 2019-06-26 2019-06-26 [facility] [id number] 10:03:00 10:03:00 Left [email or web address] 2019-06-13 2019-06-13 [facility] [id number] 07:46:00 07:46:00 Left [email or web address] 2019-06-05 2019-06-05 [facility] [id number] 15:15:00 15:15:00 Left Hand [employer] Left Hand [facility] [facility] Medicine Results Test Description Test Time Test Comments Text Results Atomic Results Result Comments BONE AND/OR 2019-03-19 Referring: FINAL REPORT PATIENT ID: JOINT [facility]AG[facility], 17:24:00 Yuniel Dailey [id number] PROCEDURE: B ONE WHOLE BODY SCAN, WHOLE BODY CPT CODE: 67551 INDICATION: Hepatocellular carcinoma C22.0, preoperative evaluati on [...] rt Verified Date/Time: 019 17:24:54 Reading Location: [address] [place] [address] Room T3 2019-03-15 17:05:00 Test Item Value Reference Range Comments T3 TOTAL (KY) (test code = 656) 65 ng/dL 48-159 RAD, BONE DENSITY [id number] 15:06:00Referring: Dr. Yuniel Loza for Exam:->HCC,ETOH,CIRRHOSIS, PRE TRANSPLANT EVALUATIONFINAL REPORT Bone density study, 03/14/2019 Clinical History: Screening Bone mineral density measurementLumbar spine1.384 gm/hf3Pihrjcp neck1.092 gm/cm2 Standard deviation from young adult [...] MDRzeeort Verified Date/Time: 03/15/2019 15:06:54 Reading Location: [address] Mammo Reading Room HEPATITIS A ANTIBODY, [id number] 14:48:00 Test Item Value Reference Range Comments HEPATITIS A IGG ANTIBODY (BEAKER) (test code = Reactive N onreactive 3162) CT, CHEST, WITHOUT [id number] 14:22:00Referring: [facility] CT of the [...] MDReport Verified Date/Time: 03/14/2019 14:22:43 Reading Location: [address] Radiology Reading Room MR, ABDOMEN, [id number] 14:05:00Referring: Dr. Yuniel Fraga Abdominal VesselsFINAL REPORT [...] MDReport Verified Date/Time: 03/14/2019 14:05:02 Reading Location: [address] Radiology Reading Room VARICELLA ZOSTER ANTIBODY, [id number] 12:59:00 Test Item Value Reference Range Comments VARICELLA ZOSTER IGG (AL) (BEAKER) (test code = 3197) 5.2 VARICELLA ZOSTER RESULT INTERPRETATIONS: <=0.8 Al Nonreactive: Presumed non-immune to VZV 0.9-1.0 Al Equivocal >=1.1 Al Reactive: Presumed immune to VZVRUBELLA ANTIBODY, [id number] 12:59:00 Test Item Value Reference Range Comments RUBELLA IGG QUANTITATION (BEAKER) (test code = 41.0 IU/mL < 8.0 572) Rubella IgG Result Interpretation: </= 7.0 IU/mL Negative - Presumed non- immune 8.0 - 9.9 IU/mL Equivocal >= 10.0 IU/mL Positive - Presumed immune CYTOMEGALOVIRUS ANTIBODY, [id number] 12:59:00 Test Item Value Reference Range Comments CYTOMEGALOVIRUS, IGG (BEAKER) (test code = Positive Negat alice, Equivocal 1341) CMV IgG Result Interpretation: </= 0.8 Al Negative 0.9-1.0 Al Equivocal >/=1.1 Al PositiveCYTOMEGALOVIRUS ANTIBODY, [id number] 12:59:00 Test Item Value Reference Range Comments CYTOMEGALOVIRUS IGM ANTIBODY (BEAKER) (test Negative Nega tive, Equivocal code = 0457) CMV IgM Result Interpretation: </= 0.8 Al Negative 0.9-1.0 Al Equivocal >/= 1.1 Al PositiveEBV ANTIBODY, [id number] 12:59:00 Test Item Value Reference Range Comments [...] (test code = 1819) 36.0 % CRYPTOCOCCAL [id number] 11:57:00 Test Item Value Reference Range Comments CRYPTOCOCCAL ANTIGEN, SERUM (BEAKER) (test Negative Negat alice, Interference code = 1828) RAD, MANDIBLE, MIN 4 [id number] 11:38:00Referring: Dr. Yuniel Loza for Exam:->HCC,ETOH,CIRRHOSIS, PRE [...] code = 420) Nonreactive Nonreactiv e HEMOGLOBIN [id number] 11:21:00 Test Item Value Reference Range Comments HEMOGLOBIN A1C (BEAKER) (test code = 368) < % 4.3-6. 1 VITAMIN D, [id number] 11:14:00 Test Item Value Reference Range Comments VITAMIN D 25-OH (BEAKER) (test code = 2764) 8.1 ng/mL 6.6- 49.9 Effective 02/01/2017: Reference Range ChangeNew: 6.6-49.9 ng/mL Previous: 13.0-47.8 ng/mLRecommended Vitamin D Target Range: 30.0-40.0 ng/mLHEPATITIS B SURFACE [id number] 10:24:00 Test Item Value Reference Range Comments HEPATITIS B SURFACE ANTIBODY (BEAKER) (test code = < mIU/mL <8.0 647) [id number] 10:01:00 Test Item Value Reference Range Comments PROSTATE SPECIFIC ANTIGEN (BEAKER) (test code = 1.9 ng/mL 0.0-4.0 844) HEPATITIS B SURFACE [id number] 10:01:00 Test Item Value Reference Range Comments HEPATITIS B SURFACE ANTIGEN (2) (BEAKER) (test Nonreactive N onreactive code = 2585) HEPATITIS C [id number] 10:01:00 Test Item Value Reference Range Comments HEPATITIS C ANTIBODY (BEAKER) (test code = 367) Nonreactive Nonreactive HIV-1 ANTIGEN WITH HIV-1/2 [id number] 10:01:00 Test Item Value Reference Range Comments HIV-1 ANTIGEN WITH HIV 1\T\2 ANTIBODY (2) Nonreactive Nonrea ctive (BEAKER) (test code = 2586) [id number] 09:59:00 Test Item Value Reference Range Comments T4 TOTAL (BEAKER) (test code = 895) 3.5 ug/dL 4.9-11.7 [id number] 09:59:00 Test Item Value Reference Range Comments THYROID STIMULATING HORMONE (BEAKER) (test code 2.71 uIU/mL 0.35-4.94 = 772) CARCINOEMBRYONIC ANTIGEN (CEA)2019-03-14 09:59:00 Test Item Value Reference Range Comments CARCINOEMBRYONIC ANTIGEN (BEAKER) (test code = 12.0 ng/mL 0 .0-5.0 685) HEPATITIS B CORE ANTIBODY, [id number] 09:59:00 Test Item Value Reference Range Comments HEPATITIS B CORE IGM ANTIBODY (BEAKER) (test Nonreactive Non reactive code = 645) HEPATITIS A ANTIBODY, [id number] 09:59:00 Test Item Value Reference Range Comments HEPATITIS A IGM ANTIBODY (BEAKER) (test code = Nonreactive N onreactive 498) HEPATITIS B CORE ANTIBODY, [id number] 09:59:00 Test Item Value Reference Range Comments HEPATITIS B CORE TOTAL ANTIBODY (BEAKER) (test Nonreactive N onreactive code = 497) [id number] 09:45:00 Test Item Value Reference Range Comments MAGNESIUM (BEAKER) (test code = 627) 1.7 mg/dL 1.6-2.6 [id number] 09:45:00 Test Item Value Reference Range Comments PHOSPHORUS (BEAKER) (test code = 604) 3.8 mg/dL 2.3-4.7 URIC [id number] 09:45:00 Test Item Value Reference Range Comments URIC ACID (BEAKER) (test code = 773) 5.4 mg/dL 2.6-7.2 Specimen slightly ictericCOMPREHENSIVE METABOLIC [id number] 09:45:00 Test Item Value Reference Range Comments [...] OR DIALYSIS PATIENT S. Specimen slightly ictericLIPID [id number] 09:45:00 Test Item Value Reference Range Comments [...] 160-189 Very High >=190 Specimen slightly ictericBILIRUBIN, [id number] 09:45:00 Test Item Value Reference Range Comments BILIRUBIN DIRECT (BEAKER) (test code = 706) 2.8 mg/dL 0.1- 0.5 GAMMA GLUTAMYL TRANSFERASE (GGT)2019-03-14 09:45:00 Test Item Value Reference Range Comments GAMMA GLUTAMYL TRANSFERASE (BEAKER) (test code = 364) 46 U/L 9-64 Specimen slightly [id number] 09:39:00 Test Item Value Reference Range Comments TRANSFERRIN (BEAKER) (test code = 541) 115 mg/dL 174-382 Specimen slightly ictericCALCIUM, [id number] 09:37:00 Test Item Value Reference Range Comments CALCIUM IONIZED (BEAKER) (test code = 698) 1.23 mmol/L 1.12- 1.27 PH, BLOOD (BEAKER) (test code = 1810) 7.30 [id number] 09:36:00 Test Item Value Reference Range Comments ETHANOL (BEAKER) (test code = 400) < mg/dL <=10 PROTHROMBIN TIME/[id number] 09:28:00 Test Item Value Reference Range Comments PROTIME (BEAKER) (test code = 759) 25.1 seconds 11.9-14.2 INR (BEAKER) (test code = 370) 2.4 <=5.9 Effective 09/19/2018: PT Reference Range ChangeNew: 11.9-14.2 Previous: 11.7- 14.7RECOMMENDED COUMADIN/WARFARIN INR THERAPY RANGESSTANDARD DOSE: 2.0-3.0 Includes: PROPHYLAXIS for venous thrombosis, systemic embolization; TREATMENT for venous thrombosis and/or pulmonary embolus.HIGH RISK: Target INR is2.5-3.5 for patients wiht mechanical heart valves.[id number] 09:28:00 Test Item Value Reference Range Comments FIBRINOGEN LEVEL (BEAKER) (test code = 658) 166 mg/dl 225- 434 [id number] 09:28:00 Test Item Value Reference Range Comments PARTIAL THROMBOPLASTIN TIME (BEAKER) (test code 55.8 seconds 22.5-36.0 = 760) URINALYSIS W/ [id number] 09:22:00 Test Item Value Reference Range Comments [...] = 2795) CBC W/PLT COUNT & AUTO [id number] 09:18:00 Test Item Value Reference Range Comments [...] code = 2801) MYOCARD IMAGING, MULTI, PHARM, [id number] 19:05:00Referring: Dr. [facility]: MYOCARDIAL PERFUSION SPECT IMAGING (Rest/Stress)CPT CODE: 10482 INDICATION: Evaluation for coronary artery disease prior [...] MDReport Verified Date/Time: 03/13/2019 19:05:20 Reading Location: [place] [id number] Reading Room ANTI-NUCLEAR ANTIBODY ([place])2019-02-18 10:03:00 Test Item Value Reference Range Comments ANTI-NUCLEAR ANTIBODY ([place]) (BEAKER) (test code = Positive Negative 418) Test performed by IFA method.[place] TITER AND [id number] 10:03:00 Test Item Value Reference Range Comments [place] TITER (BEAKER) (test code = 1541) >=:2560 [place] PATTERN (BEAKER) (test code = 1781) Speckled [id number] 20:03:00 Test Item Value Reference Range Comments FERRITIN (BEAKER) (test code = 361) 2900 ng/mL 5-275 ALPHA FETOPROTEIN (AFP), TUMOR [id number] 18:51:00 Test Item Value Reference Range Comments ALPHA-FETOPROTEIN (BEAKER) (test code = 1094) 14.5 ng/mL <1 0.0 BILIRUBIN, [id number] 18:34:00 Test Item Value Reference Range Comments BILIRUBIN DIRECT (BEAKER) (test code = 706) 3.7 mg/dL 0.1- 0.5 COMPREHENSIVE METABOLIC [id number] 18:34:00 Test Item Value Reference Range Comments [...] code = 90 % 20-5 5 2590) [id number] 18:26:00 Test Item Value Reference Range Comments ALPHA-1 ANTITRYPSIN (BEAKER) (test code = 502) 165.60 mg/dL 9 0.00-200.00 PROTHROMBIN TIME/[id number] 17:50:00 Test Item Value Reference Range Comments [...] mechanical heart valves.CBC W/PLT COUNT & AUTO [id number] 17:44:00 Test Item Value Reference Range Comments [...]
--- OUTSIDE RECORDS SUMMARY | 2019-08-13 08:40 | XMS REPORT ---
:1975 Author Organization [employer] Care Team Providers Name Role Phone Asim [facility] Provider Role Unavailable Allergies, Adverse Reactions, Alerts [...] End Status Dosage System Date Date Lidoderm [facility] 84813401332 5 % Externally Active 1 pa tch Once a day remove after 12 hours Trazodone HCl ND 49197009818 50 MG Orally Jun 05, Active 1 tablet Once a day 2020 at bedtime as needed Omeprazole ND 41662657082 20 MG Orally Active 1 ca psule Once a day 30 minutes before morning meal HydrOXYzine ND 97863634989 50 MG Orally Active 1 c apsule Pamoate every 8 hrs PRN as neede d Anxiety/Itching Vitamin D3 [facility] 05615281045 00984 UNIT Active 1 caps ule Orally Once a week x 12 weeks Spironolactone ND 90697712360 50 MG Orally Active 1 tablet Twice a day Lasix ND 83548575718 20 MG Orally Active 1 table t Once a day Lactulose [facility] 78007534943 20 GM/30ML Active 15 ml Orally Twice a day Xifaxan [facility] 99200412032 550 MG Orally Active 1 tabl et Twice a day Multi Vitamin ND 97131800730 - Orally Once a Active 1 tablet day Carisoprodol [facility] 07357469448 350 MG Oral Active (sc hedule Four times a iv drug) day PRN take one -1 tablet(s) by mouth every six hours as needed for spasm. Escitalopram [facility] 70007106441 20 MG Orally Active 1 tablet Oxalate Once a day Folic Acid ND 04601356984 1 MG Orally Active 1 tab let Once a day Results No Known Results Summary Purpose [employer] Submission
--- OUTSIDE RECORDS SUMMARY | 2019-08-13 08:46 | XMS REPORT ---
:1975 Author Organization [employer] Care Team Providers Name Role Phone Asim [facility] Provider Role Unavailable Allergies No Known [...]
--- OUTSIDE RECORDS SUMMARY | 2019-08-13 08:53 | XMS REPORT ---
:1975 Author Organization [employer] Care Team Providers Name Role Phone Asim [facility] Provider Role Unavailable Allergies No [...]
--- OUTSIDE RECORDS SUMMARY | 2019-08-13 08:56 | XMS REPORT ---
:1975 Author Organization [employer] Care Team Providers Name Role Phone Dailey [facility] Provider Role Unavailable Allergies No Known Allergies [...] Medications Results No Known Results Summary Purpose [employer] Submission
--- OUTSIDE RECORDS SUMMARY | 2019-08-13 09:01 | XMS REPORT ---
:1975 Author Organization [employer] Care Team Providers Name Role Phone Asim [facility] Provider Role Unavailable Allergies No [...]
--- OUTSIDE RECORDS SUMMARY | 2019-08-13 09:12 | XMS REPORT ---
[...] End Date Status Dosage System Date Carisoprodol [facility] 32816813398 350 MG Oral Four Active 1 tablet times a day PRN as neede d muscle spasm Results No Known Results Summary Purpose [employer] Submission
--- OUTSIDE RECORDS SUMMARY | 2019-08-13 09:14 | XMS REPORT ---
[...] End Status Dosage System Date Date Carisoprodol [facility] 40796816701 350 MG Oral August 28, Active (sc hedule Four times a 2020 iv drug) day PRN take one -1 tablet(s) by mouth every six hours as needed for spasm. Lasix ND 42858353569 20 MG Orally Active 1 table t Once a day Folic Acid ND 65774425992 1 MG Orally Active 1 tab let Once a day HydrOXYzine ND 05000991980 50 MG Orally Active 1 c apsule Pamoate every 8 hrs PRN as neede d Anxiety/Itching Lidoderm [facility] 70415656087 5 % Externally Active 1 pa tch Once a day remove after 12 hours Spironolactone ND 41596044136 50 MG Orally Active 1 tablet Twice a day Trazodone HCl [facility] 39366208555 100 MG Orally Active 1 tablet Once a day at bedtime as needed Lactulose [facility] 33287704280 20 GM/30ML Active 15 ml Orally Twice a day Xifaxan [facility] 83095053541 550 MG Orally Active 1 tabl et Twice a day Multi Vitamin [facility] 06757282212 - Orally Once a Active 1 tablet day Escitalopram [facility] 46519817637 20 MG Orally Active 1 tablet Oxalate Once a day Vitamin D3 [facility] 69704740437 35747 UNIT Active 1 caps ule Orally Once a week x 12 weeks Omeprazole ND 09458891735 20 MG Orally Active 1 ca psule Once a day 30 minutes before morning meal Results No Known Results Summary Purpose [employer] Submission
--- OUTSIDE RECORDS SUMMARY | 2019-08-13 09:14 | XMS REPORT ---
:1975 Author Organization [employer] Care Team Providers Name Role Phone Dailey [facility] Provider Role Unavailable Allergies No Known Allergies [...] Medications Results No Known Results Summary Purpose [employer] Submission
[2019-08-13 09:16] LABS: Absolute Lymphocytes (CBC) 0.4 K/uL (0.7-4.9); Hematocrit 28.3 % (39.6-49.0); Lymphocytes % 9.7 % (15.3-44.8); MPV 7.5 fL (7.6-11.3); RBC Red Blood Cell Count 2.77 M/uL (4.33-5.43)
[2019-08-13 09:29] LABS: Albumin 2.3 g/dL (3.4-5.0); Bilirubin Direct 2.4 mg/dL (0-0.2); Potassium 3.5 mmol/L (3.5-5.1); Protein, Total 8.4 g/dL (6.4-8.2)
[2019-08-13 09:33] LABS: Bilirubin Total 4.2 mg/dL (0.2-1.0)
--- NOTE | 2019-08-13 09:41 | RAD REPORT ---
EXAM DESCRIPTION: CT - Abdomen Pelvis W Contrast - 08/13/2019 9:17 am CLINICAL HISTORY: Abdominal pain COMPARISON: none. TECHNIQUE: Computed axial tomography of the abdomen pelvis was obtained. 100 cc Isovue-300 was admin istered intravenously. Oral contrast was not requested which limits evaluation of bowel. All CT scans are performed using dose optimization technique as appropriate and may include automated exposure control or mA/KV adjustment according to patient size. FINDINGS: A cirrhotic liver. 37 millimeter enhancing lesion within hepatic segment VIII Spleen is mildly enlarged. Varices within the upper abdomen. The gallbladder is distended. Pancreas, adrenals and kidneys appear unremarkable Small amount of ascites. No evidence of diverticulitis. Right hydrocele IMPRESSION: Cirrhosis 37 millimeter hepatic lesion probably hepatocellular carcinoma Gallbladder distention.
[2019-08-13] MEDS ORDERED: NA CHLORIDE 0.9% 1,000 ML ONE (09:43)
[2019-08-13 09:48] LABS: Anisocytosis 1+; Blood Morphology Comment NOTED (NOT SEEN); Macrocytosis 1+; Platelet Estimate DECR; Rouleau NOTED
[2019-08-13] MEDS ORDERED: LACTULOSE 20 GM/30 ML UCUP ONE (10:12)
[2019-08-13 10:27] LABS: Barbiturates NEGATIVE (NEGATIVE); Benzodiazepines POSITIVE (NEGATIVE); Cocaine NEGATIVE (NEGATIVE); METHAMPHETAM NEGATIVE (NEGATIVE); Methadone NEGATIVE (NEGATIVE); Opiates NEGATIVE (NEGATIVE); Phencyclidine NEGATIVE (NEGATIVE); THC Cannibis NEGATIVE (NEGATIVE)
--- NOTE | 2019-08-13 10:30 | EDPHYS ---
Physician Documentation [facility] Name: Stuart Glass Age: 44 yrs Sex: Male : 1975 Arrival Date: 08/13/2019 Time: 08:28 Bed 5 Private MD: ED Physician Juan A Walter HPI: 08/12 09:54 This 44 yrs old Male presents to ER via EMS with complaints of Abdominal Pain. kb 09:54 The patient presents with abdominal pain that is diffuse. Onset: The symptoms/episode kb began/occurred 1.5 year(s) ago. The symptoms do not radiate. Associated signs and symptoms: none. The symptoms are described as constant. Modifying factors: The symptoms are alleviated by nothing, the symptoms are aggravated by nothing. Severity of pain: At its worst the pain was moderate in the emergency department the pain is unchanged. The patient has experienced similar episodes in the past. The patient has been recently seen at the [facility] Emergency Department. Pt c/o diffuse abd pain. States it started a year and a half ago when he was diagnosed with liver CA. 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 States they are going to do a scope of some kind. Also reports he fell yesterday due to leg pain s/t neuropathy. Pt is in police custody. . Historical: - Allergies: 08:35 No Known Allergies; sv - PMHx: 08:35 chronic back pain; Cirrhosis; liver cancer; neuropathy; tumors on liver; sv - Immunization history:: Adult Immunizations unknown. - Social history:: Smoking status: unknown. ROS: 08:41 Constitutional: Negative for fever, chills, and weight loss, Cardiovascular: Negative kb for chest pain, palpitations, and edema, Respiratory: Negative for shortness of breath, cough, wheezing, and pleuritic chest pain, Back: Negative for injury and pain, MS/Extremity: Negative for injury and deformity, Skin: Negative for injury, rash, and discoloration, Neuro: Negative for headache, weakness, numbness, tingling, and seizure. 08:41 Abdomen/GI: Positive for abdominal pain, Negative for nausea, vomiting, and diarrhea, constipation. Exam: 08:41 Constitutional: This is a well developed, well nourished patient who is awake, alert, kb and in no acute distress. Head/Face: Normocephalic, atraumatic. Neck: Trachea midline, no thyromegaly or masses palpated, and no cervical lymphadenopathy. Supple, full range of motion without nuchal rigidity, or vertebral point tenderness. No Meningismus. Chest/axilla: Normal chest wall appearance and motion. Nontender with no deformity. No lesions are appreciated. Cardiovascular: Regular rate and rhythm with a normal S1 and S2. No gallops, murmurs, or rubs. Normal PMI, no JVD. No pulse deficits. Respiratory: Lungs have equal breath sounds bilaterally, clear to auscultation and percussion. No rales, rhonchi or wheezes noted. No increased work of breathing, no retractions or nasal flaring. Back: No spinal tenderness. No costovertebral tenderness. Full range of motion. MS/ Extremity: Pulses equal, no cyanosis. Neurovascular intact. Full, normal range of motion. Neuro: Awake and alert, GCS 15, oriented to person, place, time, and situation. Cranial nerves II-XII grossly intact. Motor strength 5/5 in all extremities. Sensory grossly intact. Cerebellar exam normal. Normal gait. 08:41 Abdomen/GI: Inspection: abdomen appears normal, Bowel sounds: normal, in all quadrants, Palpation: soft, in all quadrants, moderate abdominal tenderness, in all quadrants. 10:48 Skin: injury, contusion(s), that are superficial, of the dorsum of left hand. kb Vital Signs: 08:32 BP 148 / 84; Pulse 87; Resp 16; Temp 97.9(TE); Pulse Ox 100% ; sv 09:35 BP 127 / 72; Pulse 86; Resp 16; Pulse Ox 99% ; sv 10:23 BP 124 / 65; Pulse 82; Resp 16; Pulse Ox 99% ; sv MDM: 08:33 Patient medically screened. kb 08:41 Data reviewed: vital signs, nurses notes. Data interpreted: Pulse oximetry: on room air kb is 100 %. Interpretation: normal. 10:00 Counseling: I had a detailed discussion with the patient and/or guardian regarding: the kb historical points, exam findings, and any diagnostic results supporting the discharge/admit diagnosis, lab results, radiology results, the need for outpatient follow up, a family practitioner, to return to the emergency department if symptoms worsen or persist or if there are any questions or concerns that arise at home. 10:01 ED course: Old labs reviewed in [facility]. Today's labs are in the same range as past kb results. . 10:45 ED course: Pt now complains of left hand pain from "a few days ago at the [facility]" and kb wants that evaluated, as well as, his left lower anterior ribs because he hit his chest on the police car when he was arrested last night. . 08/12 08:36 Order name: Basic Metabolic Panel; Complete Time: 09:37 kb 08/12 08:36 Order name: CBC with Diff; Complete Time: 09:51 kb 08/12 08:36 Order name: Hepatic Function; Complete Time: 09:37 kb 08/12 08:36 Order name: Lipase; Complete Time: 09:37 kb 08/12 08:36 Order name: ETOH Level; Complete Time: 09:23 kb 08/12 08:36 Order name: UDS; Complete Time: 10:28 kb 08/12 08:36 Order name: IV Saline Lock; Complete Time: 08:55 kb 08/12 08:36 Order name: CT Abd/Pelvis - IV Contrast Only; Complete Time: 09:44 kb 08/12 09:49 Order name: Manual Differential; Complete Time: 09:51 EDMS 08/12 10:45 Order name: Chest Single View XRAY 08/12 11:10 Order name: Hand Left 2 View EDMS 08/12 08:36 Order name: Labs collected and sent; Complete Time: 08:55 kb Administered Medications: 09:40 Drug: NS 0.9% 1000 ml Route: IV; Rate: 1000 ml; Site: left antecubital; ph 10:46 Follow up: Response: No adverse reaction; IV Status: Completed infusion; IV Intake: sv 1000ml 11:17 Not Given (Patient Refused; Stated he wouldn't be able to walk to the toilet in his sv cell): Lactulose 30 grams 45 ml PO once Disposition: 16:24 Co-signature as Attending Physician, Juan A Walter MD I agree with the assessment and kdr plan of care. Disposition: 08/13/19 10:29 Discharged to Home. Impression: Unspecified abdominal pain, Abnormal results of liver function studies. - Condition is Stable. - Discharge Instructions: Alcoholic Liver Disease, [id number], Liver Cancer. - Medication Reconciliation Form, Thank You Letter, Antibiotic Education, Prescription Opioid Use form. - Follow up: Emergency Department; When: As needed; Reason: Worsening of condition. Follow up: Private Physician; When: 2 - 3 days; Reason: Recheck today's complaints, Continuance of care, Re-evaluation by your physician. Signatures: Dispatcher [employer] EDRI Rebekah Chaparro, ELIJAH-C VEHICLE MODIFICATION TECHNICIAN-Maddie Mendoza RN RN sv Rittger, Kevin, MD MD [facility] Tamie Jean-Baptiste RN RN ph Bryant, Jessica, RN RN jb9 Corrections: (The following items were deleted from the chart) 10:48 08:41 Constitutional: This is a well developed, well nourished patient who is awake, kb alert, and in no acute distress. Head/Face: Normocephalic, atraumatic. Neck: Trachea midline, no thyromegaly or masses palpated, and no cervical lymphadenopathy. Supple, full range of motion without nuchal rigidity, or vertebral point tenderness. No Meningismus. Chest/axilla: Normal chest wall appearance and motion. Nontender with no deformity. No lesions are appreciated. Cardiovascular: Regular rate and rhythm with a normal S1 and S2. No gallops, murmurs, or rubs. Normal PMI, no JVD. No pulse deficits. Respiratory: Lungs have equal breath sounds bilaterally, clear to auscultation and percussion. No rales, rhonchi or wheezes noted. No increased work of breathing, no retractions or nasal flaring. Back: No spinal tenderness. No costovertebral tenderness. Full range of motion. Skin: Warm, dry with normal turgor. Normal color with no rashes, no lesions, and no evidence of cellulitis. MS/ Extremity: Pulses equal, no cyanosis. Neurovascular intact. Full, normal range of motion. Neuro: Awake and alert, GCS 15, oriented to person, place, time, and situation. Cranial nerves II-XII grossly intact. Motor strength 5/5 in all extremities. Sensory grossly intact. Cerebellar exam normal. Normal gait. kb 11:10 10:47 Hand Left 3 View+RAD.RAD.BRZ ordered. EDRI EDMS 11:20 10:29 08/13/2019 10:29 Discharged to Home. Impression: Unspecified abdominal pain; jb9 Abnormal results of liver function studies. Condition is Stable. Forms are Medication Reconciliation Form, Thank You Letter, Antibiotic Education, Prescription Opioid Use. Follow up: Emergency Department; When: As needed; Reason: Worsening of condition. Follow up: Private Physician; When: 2 - 3 days; Reason: Recheck today's complaints, Continuance of care, Re-evaluation by your physician. kb
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
[2019-08-13 11:27] VITALS: TEMP 97.9
[2019-08-13 11:29] VITALS: O2SAT 99
[2019-08-13 11:30] VITALS: BP 124/65
--- NOTE | 2019-08-13 11:33 | RAD REPORT ---
EXAM DESCRIPTION: Ifeanyi Single View08/13/2019 11:11 am CLINICAL HISTORY: Chest pain COMPARISON: July 28, 2019 FINDINGS: The lungs appear clear of acute infiltrate. The heart is normal size IMPRESSION: No acute abnormalities displayed
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
== END 2019-08-13 11:20 | disposition home or self-care (01) ==
LOC: ER 08:27
DX: R94.5 Abnormal results of liver function studies (principal); M79.642 Pain in left hand; Z85.05 Personal history of malignant neoplasm of liver; W19.XXXA Unspecified fall, initial encounter; Y93.9 Activity, unspecified; Y92.9 Unspecified place or not applicable
CPT/HCPCS: 85025; 80048; 36415; 80320; 80076; 80307 ×8; 83690; 74177; 71045; 73120; Q9967; J7030